=== PATIENT | female | born 1990 | race Caucasian/White ===

== ENCOUNTER 2023-04-22 10:17 | Emergency (ER) | payer MEDICAID, SELFPAY ==
[2023-04-22 10:26] VITALS: BP 158/87; PULSE 84; RESP 16; TEMP 36.6; O2SAT 100; BMI 20.3
--- NOTE | 2023-04-22 10:41 | CT_ITS ---
The [address] [address] Patient Name: JARRELL WHITING MRN: [id number] date: 1990 Sex: F Assigned Patient Location: ED.MAIN Current Patient Location: ED.MAIN Accession/Order Number: [id number] Exam Date: 04/22/2023 11:08 Report Date: 04/22/2023 11:52 At the request of: PB MAJANO Procedure: CT lumbar spine wo con EXAMINATION: CT lumbar spine wo con HISTORY: back injury , lumbar pain, bilateral lower extremity tingling after falling out of truck COMPARISON: No relevant comparison available. TECHNIQUE: Axial, Coronal, and Sagittal images were created without IV contrast. Dose reduction techniques were achieved by using automated exposure control and/or adjustment of mA and/or kV according to patient size and/or use of iterative reconstruction technique. 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 Normal height and alignment of vertebral bodies. FACET JOINTS: No disruption or abnormal widening. DISCS: L5-S1 mild diffuse disc bulging without disc height reduction resulting in mild/moderate foramen narrowing bilaterally. CENTRAL CANAL: No spinal stenosis or evidence of hemorrhage. PARASPINAL AREA: No visible mass. CT/CT lumbar spine wo con IMPRESSION: 1. No appreciable acute abnormality. 2. 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 3. Mild foramen narrowing L5-S1 secondary to mild disc bulging. Electronically authenticated by: ANITA JUÁREZ Date: 04/22/2023 11:52
--- NOTE | 2023-04-22 10:43 | ED.BACK1 ---
HPI - Back Pain/Injury General Chief Complaint: Back Pain/Injury Stated Complaint: BACK PAIN, TRAUMATIC Time Seen by Provider: 04/22/23 10:27 Source: patient Mode of arrival: walk-in Limitations: no limitations History of Present Illness HPI Narrative: Patient fell getting out of her truck yesterday and landed on an asphalt parking, striking her buttocks on the ground and using her left arm to break her fall. She immediately felt pain in the low back and now that pain is worse. She was previously diagnosed with degenerative disc disease and has chronic low back pain. No bowel or bladder dysfunction since the accident and she has no lower extremity weakness or paralysis. She said that she did not take anything for pain because I do not like swallowing pills . Related Data Home Medications Medication Instructions Recorded Confirmed albuterol sulfate 90 mcg/actuation 2 puff inhalation Q4H PRN 04/22/23 04/22/23 aerosol inhaler shortness of breath or wheezing budesonide-formoterol HFA 160 1 puff inhalation Q12H 04/22/23 04/22/23 mcg-4.5 mcg/actuation aerosol inhaler (Symbicort) Previous Rx's Medication Instructions Recorded methocarbamol 750 mg tablet 750 mg PO Q6H PRN back pain #20 04/22/23 tabs nabumetone 750 mg tablet 750 mg PO BID PRN back pain #20 04/22/23 tabs Allergies Allergy/AdvReac Type Severity Reaction Status Date / Time tomato Allergy Severe Rash Verified 04/22/23 10:37 acetaminophen [From Percocet] AdvReac Severe Nausea Verified 04/22/23 10:37 oxycodone [From Percocet] AdvReac Severe Nausea Verified 04/22/23 10:37 hydrocodone [From Vicodin] AdvReac Nausea Verified 04/22/23 10:37 PFSH PFSH Social History Smoking status: Heavy tobacco smoker Exam Narrative Exam Narrative: General: Alert, no acute distress, patient resting comfortably Skin: warm, intact, no pallor noted Head: Normocephalic, atraumatic Eye: Normal conjunctiva Respiratory: No acute distress Cardiac: Normal peripheral perfusion Back: inspection of the back shows no obvious deformity, no swelling, no ecchymosis, contusion, abrasion, swelling, erythema, fluctuance or induration. Tenderness noted throughout the low back including the midline lumbar spine. No coccyx or sacral tenderness. Straight leg raise on left is positive. Straight leg raise on right is negative. No CVA tenderness noted bilaterally. Musculoskeletal: No deformity noted to bilateral lower extremities. no cyanosis or mottling noted. normal pulses at DP and PT 2+ bilaterally and symmetrically. Normal 5/5 strength at ankles with dorsiflexion and plantar flexion. Patient is able to ambulate. Normal sensation noted to both lower extremities. Neurological: AAOx4, normal sensory and motor observed. L5-S1 reflexes intact symmetrically. DTR 2+ at patellar bilaterally. Psychiatric: Cooperative and interactive. Constitutional Vital Signs, click to edit/add: Last Vital Signs Temp 97.8 F 04/22/23 10:26 Pulse 84 04/22/23 10:26 Resp 16 04/22/23 10:26 BP 158/87 H 04/22/23 10:26 Pulse Ox 100 04/22/23 10:26 O2 Del Method Room Air 04/22/23 10:26 Course Vital Signs Vital signs: Vital Signs Temperature 97.8 F 04/22/23 10:26 Pulse Rate 84 04/22/23 10:26 Respiratory Rate 16 04/22/23 10:26 Blood Pressure 158/87 H 04/22/23 10:26 Pulse Oximetry 100 04/22/23 10:26 Oxygen Delivery Method Room Air 04/22/23 10:26 Temperature 97.8 F 04/22/23 10:26 Pulse Rate 84 04/22/23 10:26 Respiratory Rate 16 04/22/23 10:26 Blood Pressure 158/87 H 04/22/23 10:26 Pulse Oximetry 100 04/22/23 10:26 Oxygen Delivery Method Room Air 04/22/23 10:26 MDM - Back Pain/Injury MDM Narrative Medical decision making narrative: Patient agreed to receive IM Toradol and was sent for CT lumbar spine without contrast. Result/findings from radiologist are detailed below. Patient given a copy of her CT report and informed of findings, diagnosis discussed and patient discharged home with prescriptions for relafen and robaxin. She can see her PCP for follow up. Imaging Data ct lumbar spine: Radiologist's impression: Patient Name: JARRELL WHITING MRN: [facility]:[id number] date: 1990 Sex: F Assigned Patient Location: ED.MAIN Current Patient Location: ED.MAIN Accession/Order Number: [id number] Exam Date: 04/22/2023 11:08 Report Date: 04/22/2023 11:52 At the request of: PB MAJANO Procedure: CT lumbar spine wo con EXAMINATION: CT lumbar spine wo con HISTORY: back injury , lumbar pain, bilateral lower extremity tingling after falling out of truck COMPARISON: No relevant comparison available. TECHNIQUE: Axial, Coronal, and Sagittal images were created without IV contrast. Dose reduction techniques were achieved by using automated exposure control and/or adjustment of mA and/or kV according to patient size and/or use of iterative reconstruction technique. 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 Normal height and alignment of vertebral bodies. FACET JOINTS: No disruption or abnormal widening. DISCS: L5-S1 mild diffuse disc bulging without disc height reduction resulting in mild/moderate foramen narrowing bilaterally. CENTRAL CANAL: No spinal stenosis or evidence of hemorrhage. PARASPINAL AREA: No visible mass. IMPRESSION: 1. No appreciable acute abnormality. 2. 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 3. Mild foramen narrowing L5-S1 secondary to mild disc bulging. Electronically authenticated by: ANITA JUÁREZ Date: 04/22/2023 11:52 Discharge Plan Discharge Chief Complaint: Back Pain/Injury Clinical Impression: Low back pain Patient Disposition: Home, Self-Care Time of Disposition Decision: 12:06 Prescriptions / Home Meds: New nabumetone 750 mg tablet 750 mg PO BID PRN (Reason: back pain) Qty: 20 0RF methocarbamol 750 mg tablet 750 mg PO Q6H PRN (Reason: back pain) Qty: 20 0RF No Action albuterol sulfate 90 mcg/actuation HFA aerosol inhaler 2 puff INHALATION Q4H PRN (Reason: shortness of breath or wheezing) budesonide-formoterol [Symbicort] 160-4.5 mcg/actuation HFA aerosol inhaler 1 puff INHALATION Q12H Instructions: Acute Low Back Pain (ED) Stand Alone Forms: Portal Instructions Referrals: Stiven Greenberg MD [Primary Care Provider] - 1 week
[2023-04-22] MEDS: KETOROLAC TROMETHAMINE 60 MG/2 ML VIAL IM (10:49)
[2023-04-22 12:33] VITALS: BP 114/68; PULSE 64; RESP 18; O2SAT 98
== END 2023-04-22 12:36 | disposition home or self-care (01) ==
PROVIDERS: Emergency Provider Emergency Medicine; PCP Family Medicine
DX: M54.50 Low back pain, unspecified (principal); Z79.899 Other long term (current) drug therapy; F17.210 Nicotine dependence, cigarettes, uncomplicated
CPT/HCPCS: 72131; 96372; 99284

== ENCOUNTER 2023-07-06 16:26 | Emergency (ER) | payer MEDICAID, SELFPAY ==
[2023-07-06 16:32] VITALS: BP 142/97; PULSE 76; RESP 20; TEMP 36.8; O2SAT 98; BMI 21.1
--- OUTSIDE RECORDS SUMMARY | 2023-07-06 16:34 | XMS_ITS | CCD ---
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 Name Role Phone DILANY ., DR TONEY Attending Unavailable HOY ., DR TONEY Admitting Unavailable HOY ., DR TONEY Primary Care Unavailable HOY ., DR TONEY Consulting Unavailable HOY ., DR TONEY Admitting Unavailable HOY ., DR TONEY Primary Care Unavailable HOY ., DR TONEY Consulting Unavailable HOY ., DR TONEY Attending Unavailable Allergies Allergy Classification Reported Allergen(s) Allergy Type Date of Onset Reaction(s) Facility (1 source) Acetaminophen / HYDROcodone Drug Allergy 11-28-2014 [facility] Repository Problems Active Problems Problem Classification Problem Date Documented Da te Episodic/Chronic Unclassified (1 source) ESOPHAGITIS UNSPEC WITHOUT BLEEDING; Translations: [ESOPHAGITIS UNSPEC WITHOUT BLEEDING] Onset: 09-12-2021 Past or Other Problems Problem Classification Problem Date Documented Da te Episodic/Chronic Gastritis and duodenitis (4 sources) Gastritis, unspecified, without bleeding; Translations: [GASTRITIS UNS WITHOUT BLEEDING] Onset: 09-11-2021 Episodic Results Test Name Value Interpretation Reference Range Facility H PYLORI ANTIBODY IGGon 06-30 H. PYLORI IGG ABS 0.46 Index Value Normal 0.00-0.79 [facility] Comment on above: Result Comment: Nega tive <0.80 Equivocal 0.80 - 0.89 Positive >0.89 Performed By: #### H PYLLC #### [facility] [address] [place], [place] [address] Dr. Donna Cornejo AMYLASEon 07-21-2022 Amylase [Catalytic activity/Vol] 83 U/L Normal 25-115 [facility] Comment on above: Performed By: #### A MY, CMP, LIPA, LIPID, T7, TSH #### [facility] [address] [place] [address] [address] Donna Cornejo CBC AUTO DIFFon 07-21-2022 BASO # 0.0 103/ul Normal 0.0-0.1 [facility] Comment on above: Performed By: #### C BC #### [facility] [address] [place] [address] Dr. Donna Cornejo Basophils/100 WBC (Bld) 0.5 % Normal 0.2-2.0 [facility] Comment on above: Performed By: #### C BC #### [facility] [address] [place] [address] Dr. Donna Cornejo EO # 0.1 103/ul Normal 0.0-0.7 [facility] Comment on above: Performed By: #### C BC #### [facility] [address] [place] [address] Dr. Donna Cornejo Eosinophils/100 WBC (Bld) 1.7 % Normal 0.9-7.0 [facility] Comment on above: Performed By: #### C BC #### [facility] [address] [place] [address] Dr. Donna Cornejo Erythrocyte distribution width (RBC) [Ratio] 13.4 % Normal 11.0-15.0 [facility] Comment on above: Performed By: #### C BC #### [facility] [address] [place] [address] Dr. Donna Cornejo Hematocrit (Bld) [Volume fraction] 37.4 % Normal 36.0-48.0 [facility] Comment on above: Performed By: #### C BC #### [facility] [address] [place] [address] Dr. Donna Cornejo Hemoglobin (Bld) [Mass/Vol] 13.1 g/dL Normal 12.0-16.0 [facility] Comment on above: Performed By: #### C BC #### [facility] [address] [place] [address] Dr. Donna Cornejo IG # 0.01 10e3/ul Normal 0.00-0.03 [facility] Comment on above: Performed By: #### C BC #### [facility] [address] [place] [address] Dr. Donna Cornejo IG % 0.2 % Normal 0.0-0.5 [facility] Comment on above: Performed By: #### C BC #### [facility] [address] [place] [address] Dr. Donna Cornejo LYMPH # 2.5 103/ul Normal 1.2-3.8 [facility] Comment on above: Performed By: #### C BC #### [facility] [address] [place] [address] Dr. Donna Cornejo Lymphocytes/100 WBC (Bld) 41.8 % Normal 20.5-60.0 [facility] Comment on above: Performed By: #### C BC #### [facility] [address] [place] [address] Dr. Donna Cornejo MANUAL DIFF REQ NO Normal [facility] Comment on above: Performed By: #### C BC #### [facility] [address] [place] [address] Dr. Donna Cornejo MCH (RBC) [Entitic mass] 28.0 pg Normal 26.7-34.0 [facility] Comment on above: Performed By: #### C BC #### [facility] [address] [place] [address] Dr. Donna Cornejo MCHC (RBC) [Mass/Vol] 35.0 g/dL Normal 29.9-35.2 [facility] Comment on above: Performed By: #### C BC #### [facility] [address] [place] [address] Dr. Donna Cornejo MCV (RBC) [Entitic vol] 79.9 fL Critically low 81.0-99.0 [facility] Comment on above: Performed By: #### C BC #### [facility] [address] [place] [address] Dr. Donna Cornejo MONO # 0.5 103/ul Normal 0.3-0.8 [facility] Comment on above: Performed By: #### C BC #### [facility] [address] [place] [address] Dr. Donna Cornejo Monocytes/100 WBC (Bld) 8.5 % Normal 1.7-12.0 [facility] Comment on above: Performed By: #### C BC #### [facility] [address] [place] [address] Dr. Donna Cornejo NEUT # 2.8 103/ul Normal 1.4-6.5 [facility] Comment on above: Performed By: #### C BC #### [facility] [address] [place] [address] Dr. Donna Cornejo Neutrophils/100 WBC (Bld) 47.3 % Normal 43.0-75.0 [facility] Comment on above: Performed By: #### C BC #### [facility] [address] [place] [address] Dr. Donna Cornejo Platelet mean volume (Bld) [Entitic vol] 11.1 fL Normal 9.5-13.5 [facility] Comment on above: Performed By: #### C BC #### [facility] [address] [place] [address] Dr. Donna Cornejo PLT 187 103/ul Normal 150-450 [facility] Comment on above: Performed By: #### C BC #### [facility] [address] [place] [address] Dr. Donna Cornejo RBC 4.68 106/ul Normal 4.20-5.40 [facility] Comment on above: Performed By: #### C BC #### [facility] [address] [place] [address] Dr. Donna Cornejo WBC 6.0 103/ul Normal 4.0-11.0 [facility] Comment on above: Performed By: #### C BC #### [facility] [address] [place] [address] Dr. Donna Cornejo FREE THYROXINE INDEX T7on FTI 3.17 Normal 1.30-4.50 [facility] Comment on above: Performed By: #### A MY, CMP, LIPA, LIPID, T7, TSH #### [facility] [address] [place] [address] Dr. Donna Cornejo T3U 36.0 % Normal 30.0-39.0 [facility] Comment on above: Performed By: #### A MY, CMP, LIPA, LIPID, T7, TSH #### [facility] [address] [place] [address] Dr. Donna Cornejo T4 [Mass/Vol] 8.80 ug/dL Normal 4.80-13.90 [facility] Comment on above: Performed By: #### A MY, CMP, LIPA, LIPID, T7, TSH #### [facility] [address] [place] [address] Dr. Donna Cornejo GLYCOHEMOGLOBIN A1Con 2022 ADA RECOMMENDATION SEE BELOW Normal [facility] Comment on above: Result Comment: ADA RECOMMENDED LIMIT 4.0 - 6.0 ADA THERAPEUTIC TARGET < 7.0 ACTION SUGGESTED > 7.0 Performed By: #### A 1C #### [facility] [address] [place] [address] Dr. Donna Cornejo Glucose [Mass/Vol] 114 mg/dL Normal [facility] Comment on above: Performed By: #### A 1C #### [facility] [address] [place] [address] Dr. Donna Cornejo HbA1c (Bld) [Mass fraction] 5.6 % Normal 4.5-6.2 [facility] Comment on above: Performed By: #### A 1C #### [facility] [address] [place] [address] Dr. Donna Cornejo IRONon 07-21-2022 Iron [Mass/Vol] 55.0 ug/dL Normal 50.0-170.0 [facility] Comment on above: Performed By: #### I JENNA #### [facility] [address] [place] [address] Dr. Donna Cornejo LIPASEon 07-21-2022 Lipase [Catalytic activity/Vol] 181.0 U/L Normal 73.0-393.0 [facility] Comment on above: Performed By: #### A MY, CMP, LIPA, LIPID, T7, TSH #### [facility] [address] [address] [address] Donna Cornejo LIPID PROFILEon 07-21-2022 CHOL-HDL RATIO NORM SEE BELOW Normal [facility] Comment on above: Result Comment: 3.3 - 4.4 LOW RISK 4.4 - 7.1 AVERAGE RISK 7.1 - 11.0 MODERATE RISK >11.0 HIGH RISK Performed By: #### A MY, CMP, LIPA, LIPID, T7, TSH #### [facility] [address] [place] [address] [address] Donna Cornejo Cholesterol [Mass/Vol] 138 mg/dL Normal <=200 [facility] Comment on above: Performed By: #### A MY, CMP, LIPA, LIPID, T7, TSH #### [facility] [address] [place] [address] [address] Donna Cornejo Cholesterol in HDL [Mass/Vol] 53 mg/dL Normal 40-60 [facility] Comment on above: Performed By: #### A MY, CMP, LIPA, LIPID, T7, TSH #### [facility] [address] [place] [address] [address] Donna Cornejo Cholesterol in LDL [Mass/Vol] 73.0 mg/dL Normal [facility] Comment on above: Performed By: #### A MY, CMP, LIPA, LIPID, T7, TSH #### [facility] [address] [address] [address] Donna Cornejo Cholesterol.total/ Cholesterol in HDL [Mass ratio] 2.6 {ratio} Normal [facility] Comment on above: Performed By: #### A MY, CMP, LIPA, LIPID, T7, TSH #### [facility] [address] [address] [address] Donna Cornejo HDL NORMAL > or = 60 mg/dl - LO W CARDIOVASCULAR RISK <40 mg/dl - HIGH CARDIOVASCULAR RISK Normal [facility] Comment on above: Performed By: #### A MY, CMP, LIPA, LIPID, T7, TSH #### [facility] [address] [address] [address] Donna Cornejo LDL CALC NORMAL SEE BELOW Normal [facility] Comment on above: Result Comment: <100 mg/dl OPTIMAL 100 - 129 mg/dl NEAR OR ABOVE OPTIMAL 130 - 159 mg/dl BORDERLINE HIGH 160 - 189 mg/dl HIGH >190 mg/dl VERY HIGH Performed By: #### A MY, CMP, LIPA, LIPID, T7, TSH #### [facility] [address] [address] [address] Donna Cornejo Triglyceride [Mass/Vol] 60 mg/dL Normal <=150 [facility] Comment on above: Performed By: #### A MY, CMP, LIPA, LIPID, T7, TSH #### [facility] [address] [address] [address] Donna Cornejo VLDL CALC 12.0 mg/dL Normal [facility] Comment on above: Performed By: #### A MY, CMP, LIPA, LIPID, T7, TSH #### [facility] [address] [place] [address] Dr. Donna Cornejo PROF 14(COMP METB)on 023 Albumin [Mass/Vol] 4.2 g/dL Normal 3.4-5.0 [facility] Comment on above: Performed By: #### A MY, CMP, LIPA, LIPID, T7, TSH #### [facility] [address] [place] [address] Dr. Donna Cornejo Albumin/Globulin [Mass ratio] 1.4 {ratio} Normal [facility] Comment on above: Performed By: #### A MY, CMP, LIPA, LIPID, T7, TSH #### [facility] [address] [place] [address] Dr. Donna Cornejo ALP [Catalytic activity/Vol] 57 U/L Normal 46-116 [facility] Comment on above: Performed By: #### A MY, CMP, LIPA, LIPID, T7, TSH #### [facility] [address] [place] [address] Dr. Donna Cornejo ALT [Catalytic activity/Vol] 16 U/L Normal 14-59 [facility] Comment on above: Performed By: #### A MY, CMP, LIPA, LIPID, T7, TSH #### [facility] [address] [place] [address] Dr. Donna Cornejo Anion gap [Moles/Vol] 15.5 mmol/L Normal [facility] Comment on above: Performed By: #### A MY, CMP, LIPA, LIPID, T7, TSH #### [facility] [address] [place] [address] Dr. Donna Cornejo AST [Catalytic activity/Vol] 17 U/L Normal 15-37 [facility] Comment on above: Performed By: #### A MY, CMP, LIPA, LIPID, T7, TSH #### [facility] [address] [place] [address] Dr. Donna Cornejo Bilirubin [Mass/Vol] 0.3 mg/dL Normal 0.2-1.0 [facility] Comment on above: Performed By: #### A MY, CMP, LIPA, LIPID, T7, TSH #### [facility] [address] [place] [address] Dr. Donna Cornejo Calcium [Mass/Vol] 9.5 mg/dL Normal 8.5-10.1 [facility] Comment on above: Performed By: #### A MY, CMP, LIPA, LIPID, T7, TSH #### [facility] [address] [place] [address] Dr. Donna Cornejo Chloride [Moles/Vol] 102 mmol/L Normal 98-107 [facility] Comment on above: Performed By: #### A MY, CMP, LIPA, LIPID, T7, TSH #### [facility] [address] [place] [address] Dr. Donna Cornejo CO2 [Moles/Vol] 24.7 mmol/L Normal 21.0-32.0 [facility] Comment on above: Performed By: #### A MY, CMP, LIPA, LIPID, T7, TSH #### [facility] [address] [place] [address] Dr. Donna Cornejo Creatinine [Mass/Vol] 0.76 mg/dL Normal 0.55-1.02 [facility] Comment on above: Performed By: #### A MY, CMP, LIPA, LIPID, T7, TSH #### [facility] [address] [place] [address] Dr. Donna Cornejo EGFR-AF URUGUAYAN >60 Normal >=60 [facility] Comment on above: Performed By: #### A MY, CMP, LIPA, LIPID, T7, TSH #### [facility] [address] [place] [address] Dr. Donna Cornejo EGFR-NON AF URUGUAYAN >60 Normal >=60 [facility] Comment on above: Performed By: #### A MY, CMP, LIPA, LIPID, T7, TSH #### [facility] [address] [place] [address] Dr. Donna Cornejo Globulin (S) [Mass/Vol] 3.0 g/dL Normal [facility] Comment on above: Performed By: #### A MY, CMP, LIPA, LIPID, T7, TSH #### [facility] [address] [place] [address] Dr. Donna Cornejo Glucose [Mass/Vol] 109 mg/dL Critically high 74-106 [facility] Comment on above: Performed By: #### A MY, CMP, LIPA, LIPID, T7, TSH #### [facility] [address] [place] [address] Dr. Donna Cornejo Potassium [Moles/Vol] 4.2 mmol/L Normal 3.5-5.1 [facility] Comment on above: Performed By: #### A MY, CMP, LIPA, LIPID, T7, TSH #### [facility] [address] [place] [address] Dr. Donna Cornejo Protein [Mass/Vol] 7.2 g/dL Normal 6.4-8.2 [facility] Comment on above: Performed By: #### A MY, CMP, LIPA, LIPID, T7, TSH #### [facility] [address] [place] [address] Dr. Donna Cornejo Sodium [Moles/Vol] 138 mmol/L Normal 136-145 [facility] Comment on above: Performed By: #### A MY, CMP, LIPA, LIPID, T7, TSH #### [facility] [address] [place] [address] Dr. Donna Cornejo Urea nitrogen [Mass/Vol] 11.0 mg/dL Normal 7.0-18.0 [facility] Comment on above: Performed By: #### A MY, CMP, LIPA, LIPID, T7, TSH #### [facility] [address] [address] [address] Donna Cornejo Urea nitrogen/Creatinin e [Mass ratio] 14.5 mg/mg Normal [facility] Comment on above: Performed By: #### A MY, CMP, LIPA, LIPID, T7, TSH #### [facility] [address] [address] [address] Donna Cornejo TSHon 07-21-2022 TSH 1.608 uIU/mL Normal 0.358-3.740 [facility] Comment on above: Performed By: #### A MY, CMP, LIPA, LIPID, T7, TSH #### [facility] [address] [address] [address] Donna Cornejo General Surgery Office/Clini c Noteon 08-29-2021 General Surgery Office/Clinic Note Chief Complaint post operative follow up HPI Staff 7 day post operative follow up post EGD with antral biopsy. Symptoms are unchanged. History of Present Illness 1 week s/p EGD with antral bx due to epigastric pain, postprandial bloating, nausea, food intolerances; by with inactive gastritis, no H pylori; minimal improvement with Protonix; better with avoiding certain foods. Review of Systems ROS - Provider Constitutional: no fever, no sweats, no weight loss. Eyes: no glasses, no blurred vision, no visual loss. ENMT: no dentures, no hoarseness, no swallowing difficulties, no hearing loss, no ear infection(s), no nose bleeds. Cardiovascular: normal blood pressure, no chest pain, regular heartbeat, no heart murmur. Respiratory: no shortness of breath, no cough, no asthma, no wheezing. Gastrointestinal: no nausea, no vomiting, no diarrhea, no constipation, no blood in stool, no change in bowel habits, no abdominal pain, no hepatitis. Genitourinary: no kidney stones, no urine infection, no dysuria. Musculoskeletal: no pain, no weakness. Skin: no changing moles, no rash, no skin lumps. Neurologic: no seizures, no epilepsy, no headache. Psychiatric: no emotional or psychiatric problem. Heme/Lymph: no bleeding problems, no anemia, no blood clots, no transfusions. Allergy/Immunologic: no swollen lymph nodes/glands, no IV drug abuse. Other: Additional ROS info: Except as noted in the above Review of Systems and in the History of Present Illness, all other systems have been reviewed and are negative or noncontributory. Physical Exam Vitals & Measurements T: 36.2 ?C(Temporal Artery) Assessment/Plan 1. Epigastric pain (R10.13: Epigastric pain) may be food intolerances/allergies; recommend trial of low FODMAP diet; may need to see canvas shop laborer about possible food allergies; call with problems/questions. 2. Postprandial abdominal bloating (R14.0: Abdominal distension (gaseous)) see # 1 Follow-up No qualifying data available Problem List/Past Medical History Ongoing Abdominal pain, RUQ ADHD Anxiety Asthma BMI 22.0-22.9, adult Early satiety Eczema Epigastric pain GERD (gastroesophageal reflux disease) HTN (hypertension) Insomnia Low serum iron Lumbar degenerative disc disease Migraine Postprandial abdominal bloating Seasonal allergic rhinitis Historical No qualifying data Procedure/Surgical History EGD - Esophagogastroduodenoscopy (08/21/2021), section (01/18/2014), section (10/17/2012), Tonsillectomy and adenoidectomy. Medications albuterol HFA 90 mcg/inh MDI, 2 puff(s), Inhalation, q4hr, PRN ferrous sulfate 325 mg Tab, 325 mg= 1 tab(s), Oral, BID Protonix 40 mg Tab-DR, 40 mg= 1 tab(s), Oral, Daily Symbicort 160/4.5 inhalation aerosol with adapter, 2 puff(s), Inhalation, BID triamcinolone Top 0.1% Crm, 1 paulo, Topical, BID Allergies acetaminophen-hydrocodone (Nausea and vomiting) Social History Alcohol - Denies Alcohol Use, 08/06/2021 Substance Abuse Current, Marijuana, Daily, Started age 30 Years., 08/06/2021 Tobacco 5-9 cigarettes (between 1/4 to 1/2 pack)/day in last 30 days Tobacco Use:. Former smokeless tobacco user, quit more than 30 days ago Smokeless Tobacco Use:. Cigarettes, Vaping, Started age 15.0 Years. Yes, 08/06/2021 Family History Brain tumor: Sister. Hypertension: Father. Immunizations Vaccine Date Status Comments influenza virus vaccine, inactivated - Not Given Patient Refuses Normal [facility] Comment on above: Result Comment: Elec tronically Signed By: POPPY VALDEZ, Fred Liriano\.br\Date and Time Signed: 08/29/21 16:16 EST Ambulatory Visit Summaryon 0 08-28-2021 Ambulatory Visit Summary JARRELL WHITING :1990 Visit Date:08/28/2021 Ambulatory Visit Instructions Your Care Team Attending Physician - POPPY VALDEZ, Fred Liriano Primary Care Physician - Feng Duran MD This Is Your Medications List albuterol (albuterol HFA 90 mcg/inh MDI) budesonide-formoterol (Symbicort 160/4.5 inhalation aerosol with adapter) ferrous sulfate (ferrous sulfate 325 mg Tab) pantoprazole (Protonix 40 mg Tab-DR) triamcinolone topical (triamcinolone Top 0.1% Crm) Procedures Performed EGD - Esophagogastroduodenoscopy (08/21/2021), section (01/18/2014), section (10/17/2012), Tonsillectomy and adenoidectomy. Discharge Vitals Temperature (Temporal Artery) 36.2 ?C Medications What How Much When Instructions Unchanged albuterol (albuterol HFA 90 mcg/ inh MDI) 2 Puffs Inhalation Every 4 hours as needed for as needed for wheezing Unchanged budesonide-formoterol (Symbicort 160/ 4.5 inhalation aerosol with adapter) 2 Puffs Inhalation 2 times a day Unchanged ferrous sulfate (ferrous sulfate 325 mg Tab) 1 Tablets By Mouth 2 times a day Unchanged pantoprazole (Protonix 40 mg Tab-DR) 1 Tablets By Mouth Every day Unchanged triamcinolone topical (triamcinolone Top 0.1% Crm) 1 Application Topical 2 times a day Allergies acetaminophen-hydrocodone (Nausea and vomiting) Problems Ongoing - Any problem that you are currently receiving treatment for. Abdominal pain, RUQ ADHD Anxiety Asthma BMI 22.0-22.9, adult Early satiety Eczema Epigastric pain GERD (gastroesophageal reflux disease) HTN (hypertension) Insomnia Low serum iron Lumbar degenerative disc disease Migraine Postprandial abdominal bloating Seasonal allergic rhinitis Normal [facility] Pathology Noteon 08-25-2021 Pathology Note [id number]:127 [facility] Operative Reporton Operative Report [id number]:127 Normal [facility] Consent for Procedure/Surger yon 08-07-2021 Consent for Procedure/Surgery [id number]:127 [facility] Ambulatory Visit Summaryon 0 08-06-2021 Ambulatory Visit Summary JARRELL WHITING :1990 Visit Date:08/06/2021 Ambulatory Visit Instructions Your Care Team Attending Physician - POPPY VALDEZ, Fred Liriano Primary Care Physician - Feng Duran MD Referring Physician - Feng Duran MD This Is Your Medications List Contact prescribing physician if questions or concerns albuterol (albuterol HFA 90 mcg/inh MDI) budesonide-formoterol (Symbicort 160/4.5 inhalation aerosol with adapter) ferrous sulfate (ferrous sulfate 325 mg Tab) pantoprazole (Protonix 40 mg Tab-DR) triamcinolone topical (triamcinolone Top 0.1% Crm) Procedures Performed section (01/18/2014), section (10/17/2012), Tonsillectomy and adenoidectomy. Discharge Vitals Temperature (Temporal Artery) 36.2 ?C Heart Rate (Peripheral) 84 Respiratory Rate 16 Blood Pressure 126/86 Height 152.4 cm Height 152.4 cm Weight 53.4 kg Weight 53.4 kg BMI 22.99 Medications What How Much When Instructions Unchanged albuterol (albuterol HFA 90 mcg/ inh MDI) 2 Puffs Inhalation Every 4 hours as needed for as needed for wheezing Contact prescribing physician if questions or concerns Unchanged budesonide-formoterol (Symbicort 160/ 4.5 inhalation aerosol with adapter) 2 Puffs Inhalation 2 times a day Contact prescribing physician if questions or concerns Unchanged ferrous sulfate (ferrous sulfate 325 mg Tab) 1 Tablets By Mouth 2 times a day Contact prescribing physician if questions or concerns Unchanged pantoprazole (Protonix 40 mg Tab-DR) 1 Tablets By Mouth Every day Contact prescribing physician if questions or concerns Unchanged triamcinolone topical (triamcinolone Top 0.1% Crm) 1 Application Topical 2 times a day Contact prescribing physician if questions or concerns Medications and Immunizations Administered Not Given influenza virus vaccine, inactivated, Patient Refuses Allergies acetaminophen-hydrocodone (Nausea and vomiting) Problems Ongoing - Any problem that you are currently receiving treatment for. ADHD Anxiety Asthma BMI 22.0-22.9, adult Eczema HTN (hypertension) Insomnia Low serum iron Lumbar degenerative disc disease Migraine Seasonal allergic rhinitis Normal [facility] Physician Referralon 022 Physician Referral [phone] [id number] Normal [facility] Encounters Encounter Date Encounter Type Care Provider Facility Start: 07-23-2022 Encounter for genera l adult medical examination without abnormal findings DR FENG DURAN . [facility] Start: 07-21-2022 End: 07-22-[address] FENG DURAN . Facility: Start: 07-21-2022 End: 07-22-2022 Encounter for general adult medical examination without abnormal findings DR FENG DURAN . Facility: Start: 09-11-2021 End: 09-12-[address] FENG DURAN . Facility: Payers Date Payer Category Payer Unknown [id number] 1990 Unknown [id number] 1958 Medicaid [id number] 1958 Unknown [id number] Clinical Note 08-06-2021 Note Date & Type Note Facility 08-06-2021 Note Chief Complaint consultation for RUQ pain HPI Staff 31 year old female presents on consultation from Dr. Duran for RUQ/epigastric pain with heaviness feeling in RUQ. Reports pain since March. Intermittent nausea and vomiting. Food triggers include ground beef, broccoli, spicy foods and alcohol. RUQ US completed 05/01/21-unremarkable. CT ABD completed 06/06/21-unremarkable. Levsin QID, not helpful. Taking Pantoprazole 40mg daily with minimal improvement in symptoms. History of Present Illness 31 yo female no with h/o htn, asthma, anxiety, ADHD, migraine headaches; referred for upper abdominal pain; patient reports long h/o stomach problems, GERD symptoms, began worsening 4 months ago, worse with spicy or acidic foods; increased postprandial bloating, early satiety; regurgitation of acid, no dysphagia, occasional nausea, no emesis; placed on Protonix daily with mild improvement; no relief with Levsin; still can't eat red meat, spicy or acidic foods; no wt loss; no recent NSAID or asa use; no medication changes; has had chronic intermittent anemia for which she takes iron supplementation; abdominal operations significant for x 2. no fmhx of GI malignancy or IBD. recent normal GB US and abdominal/pelvic ct scan. Review of Systems PHQ Score Initial Depression Screen Score: 0 ROS - Provider Constitutional: no fever, no sweats, no weight loss. Eyes: no glasses, no blurred vision, no visual loss. ENMT: no dentures, no hoarseness, no swallowing difficulties, no hearing loss, no ear infection(s), no nose bleeds. Cardiovascular: normal blood pressure, no chest pain, regular heartbeat, no heart murmur. Respiratory: no shortness of breath, no cough, no asthma, no wheezing. Gastrointestinal: mild nausea, no vomiting, no diarrhea, no constipation, no blood in stool, no change in bowel habits, yes abdominal pain, no hepatitis. Genitourinary: no kidney stones, no urine infection, no dysuria. Musculoskeletal: yes pain, no weakness. Skin: no changing moles, no rash, no skin lumps. Neurologic: no seizures, no epilepsy, yes headache. Psychiatric: no emotional or psychiatric problem. Heme/Lymph: no bleeding problems, no anemia, no blood clots, no transfusions. Allergy/Immunologic: no swollen lymph nodes/glands, no IV drug abuse. Other: Additional ROS info: Except as noted in the above Review of Systems and in the History of Present Illness, all other systems have been reviewed and are negative or noncontributory. Physical Exam Vitals & Measurements T: 36.2 ?C(Temporal Artery) HR: 84(Peripheral) RR: 16 BP: 126/86 HT: 152.4 cm HT: 152.4 cm WT: 53.4 kg WT: 53.4 kg BMI: 22.99 HEENT: normal conjunctiva, sclera clear, no scleral icterus, EOM intact, PERRLA, oral mucosa moist without lesions. Neck: trachea midline, no mass, symmetric, no thyromegaly or nodules, no adenopathy Respiratory: lungs CTA, respirations non labored. Cardiovascular: regular rate and rhythm, no murmur, no pedal edema or varicosities. Gastrointestinal: soft, non distended, mild tenderness, epigastrium and RUQ, no peritoneal signs; no masses, no palpable hernias, diastasis recti no, no hepatosplenomegaly; normal bs Lymphatic: no cervical adenopathy, no axillary adenopathy, no inguinal adenopathy. Musculoskeletal: normal gait, digits and nails without infection, nodes, cyanosis, clubbing. Skin: no rashes, no lesions, no ulcers, no subcutaneous nodules, induration. Psychiatric/Neuro: oriented to time, place, person, judgement normal, affect appropriate for age, insight intact, no focal deficits. Tests: review of old records completed, Discussed surgical options, risks, and possible complications with patient. Assessment/Plan 1. Epigastric pain (R10.13: Epigastric pain) plan EGD under anesthesia for further evaluation, informed consent obtained. 2. Abdominal pain, RUQ (R10.11: Right upper quadrant pain) see # 1 3. Early satiety (R68.81: Early satiety) see # 1 4. GERD (gastroesophageal reflux disease) (K21.9: Gastro-esophageal reflux disease without esophagitis) see # 1, continue PPI 5. Postprandial abdominal bloating (R14.0: Abdominal distension (gaseous)) see # 1 Follow-up No qualifying data available Problem List/Past Medical History Ongoing Abdominal pain, RUQ ADHD Anxiety Asthma BMI 22.0-22.9, adult Early satiety Eczema Epigastric pain GERD (gastroesophageal reflux disease) HTN (hypertension) Insomnia Low serum iron Lumbar degenerative disc disease Migraine Postprandial abdominal bloating Seasonal allergic rhinitis Historical No qualifying data Procedure/Surgical History section (01/18/2014), section (10/17/2012), Tonsillectomy and adenoidectomy. Medications albuterol HFA 90 mcg/inh MDI, 2 puff(s), Inhalation, q4hr, PRN ferrous sulfate 325 mg Tab, 325 mg= 1 tab(s), Oral, BID Protonix 40 mg Tab-DR, 40 mg= 1 tab(s), Oral, Daily Symbicort 160/4.5 inhalation aerosol with adapter, 2 puf (more content not included)... [facility] Comment on above: Result Comment: Elec tronically Signed By: POPPY VALDEZ, Fred Jain\Date and Time Signed: 08/06/21 15:12 EST Summary Purpose Family History No Family History Records FoundNo Family History Records Found Advance Directives No Advanced Directives Records FoundNo Advanced Directives Records Found Additional Source Comments INFORMATION SOURCE (unrecogn ized section and content) DATE CREATED AUTHOR 09/15/2021 [facility] DATE CREATED AUTHOR AUTHOR'S ORGANIZ ATION 08/26/2022 [facility] FOR RECORDS PERTAINING TO PATIENTS WHO ARE OR HAVE BEEN ENROLLED IN A CHEMICAL DEPENDENCY/SUBSTANCEABUSE PROGRAM, SOME INFORMATION MAY BE OMITTED. This clinical summary was aggregated from multiple sources. Caution should be exercised in using it in the provision of clinical care. This summary normalizes information from multiple sources, and as a consequence, information in this document may materially change the coding, format and clinical context of patient data. In addition, data may be omitted in some cases. CLINICAL DECISIONS SHOULD BE BASED ON THE PRIMARY CLINICAL RECORDS. [facility]. provides no warranty or guarantee of the accuracy or completeness of information in this document.
--- NOTE | 2023-07-06 17:00 | ED.ABDPAIN1 ---
HPI - Abdominal Pain General Chief Complaint: Abdominal Pain Stated Complaint: Abdominal Pain Time Seen by Provider: 07/06/23 16:45 Source: patient Mode of arrival: walk-in Limitations: no limitations History of Present Illness HPI narrative: Patient is a 33-year-old female who presents to the emergency department for 3 to 4-day history of pain in the epigastrium and right upper quadrant. She states 4 to 5 years ago she was diagnosed with a lesion on her liver which was biopsied at this facility and found to not be cancerous. She states she never followed up after that. She reports nausea and vomiting over the last several days. She is not concerned for . She has had no previous abdominal surgeries other than a tubal ligation. No urinary symptoms. No fevers, upper respiratory symptoms or diarrhea. Related Data Home Medications Medication Instructions Recorded Confirmed albuterol sulfate 90 mcg/actuation 2 puff inhalation Q4H PRN 04/22/23 04/22/23 aerosol inhaler shortness of breath or wheezing budesonide-formoterol HFA 160 1 puff inhalation Q12H 04/22/23 04/22/23 mcg-4.5 mcg/actuation aerosol inhaler (Symbicort) Previous Rx's Medication Instructions Recorded methocarbamol 750 mg tablet 750 mg PO Q6H PRN back pain #20 04/22/23 tabs nabumetone 750 mg tablet 750 mg PO BID PRN back pain #20 04/22/23 tabs ondansetron 4 mg disintegrating 4 mg PO Q6H PRN nausea and 07/06/23 tablet vomiting #12 tabs pantoprazole 40 mg tablet,delayed 40 mg PO DAILY #7 tabs 07/06/23 release (Protonix) sucralfate 1 gram tablet (Carafate) 1 g PO Q6H PRN abdominal pain #12 07/06/23 tabs Allergies Allergy/AdvReac Type Severity Reaction Status Date / Time tomato Allergy Severe Rash Verified 04/22/23 10:37 acetaminophen [From Percocet] AdvReac Severe Nausea Verified 04/22/23 10:37 oxycodone [From Percocet] AdvReac Severe Nausea Verified 04/22/23 10:37 hydrocodone [From Vicodin] AdvReac Nausea Verified 04/22/23 10:37 Review of Systems ROS Constitutional Denies: fever or chills Eyes Denies: change in vision Ears, nose, mouth, and throat Denies: throat pain or nasal congestion Cardiovascular Denies: chest pain Respiratory Denies: shortness of breath or cough Gastrointestinal Reports: abdominal pain, nausea and vomiting; Denies: diarrhea Genitourinary Denies: painful urination Musculoskeletal Denies: back pain Integumentary/Breast Denies: rash Neurological Denies: headache Endocrine Denies: excessive urination [facility] Social History Smoking status: Heavy tobacco smoker Exam Narrative Exam Narrative: Gen.: Awake, alert, in no distress Head: Normocephalic, atraumatic ENT: Moist mucous membranes Respiratory: No respiratory distress, lungs clear bilaterally Cardio: Regular rate and rhythm Gastrointestinal: Abdomen is soft, Tender in the epigastrium and right upper quadrant with voluntary guarding, no rebound Extremities: Moves extremities equally Psych: Normal mood and affect Neuro: No focal neuro deficit Skin: Warm, dry, intact Constitutional Vital Signs, click to edit/add: Last Vital Signs Temp 98.2 F 07/06/23 16:32 Pulse 76 07/06/23 16:32 Resp 20 07/06/23 16:32 BP 142/97 H 07/06/23 16:32 Pulse Ox 98 07/06/23 16:32 O2 Del Method Room Air 07/06/23 16:32 Course Vital Signs Vital signs: Vital Signs Temperature 98.2 F 07/06/23 16:32 Pulse Rate 76 07/06/23 16:32 Respiratory Rate 20 07/06/23 16:32 Blood Pressure 142/97 H 07/06/23 16:32 Pulse Oximetry 98 07/06/23 16:32 Oxygen Delivery Method Room Air 07/06/23 16:32 Temperature 98.2 F 07/06/23 16:32 Pulse Rate 76 07/06/23 16:32 Respiratory Rate 20 07/06/23 16:32 Blood Pressure 142/97 H 07/06/23 16:32 Pulse Oximetry 98 07/06/23 16:32 Oxygen Delivery Method Room Air 07/06/23 16:32 MDM - Abdominal Pain MDM Narrative Medical decision making narrative: Patient treated with IV fluids, nausea medication, And Protonix. She rested comfortably in the ER with stable vital signs. Lab studies were all within normal limits and ultrasound of the right upper quadrant with stable hemangioma from previous imaging and no evidence of acute process. Patient discharged home with Protonix, Zofran, Carafate. Follow-up with PCP and return to the ER if symptoms change or worsen. Medical Records Attestation: I reviewed the patient's medical records. Lab Data Attestation: I reviewed the patient's lab results. Labs: Lab Results 07/06/23 07/06/23 Range/Units 16:56 18:00 WBC 7.8 (4.0-11.0) 10^3/uL RBC 4.62 (4.20-5.40) 10^6/uL Hgb 12.3 (12.0-16.0) g/dL Hct 37.5 (36.0-48.0) % MCV 81.2 (81.0-99.0) fL MCH 26.6 L (26.7-34.0) pg MCHC 32.8 (29.9-35.2) g/dL RDW 14.1 (11.0-15.0) % Plt Count 203 (150-450) 10^3/uL MPV 11.7 (9.5-13.5) fL Neut % (Auto) 61.7 (43.0-75.0) % Lymph % (Auto) 28.6 (20.5-60.0) % [place] % (Auto) 8.6 (1.7-12.0) % Eos % (Auto) 0.5 L (0.9-7.0) % Baso % (Auto) 0.5 (0.2-2.0) % Neut # (Auto) 4.8 (1.4-6.5) 10^3/uL Lymph # (Auto) 2.2 (1.2-3.8) 10^3/uL [place] # (Auto) 0.7 (0.3-0.8) 10^3/uL Eos # (Auto) 0.0 (0.0-0.7) 10^3/uL Baso # (Auto) 0.0 (0.0-0.1) 10^3/uL Abs Immat Gran (auto) 0.01 (0.00-0.03) 10^3/uL Imm/Tot Granulo (auto) 0.1 (0.0-0.5) % Sodium 137 (136-145) mmol/L Potassium 3.8 (3.5-5.1) mmol/L Chloride 103 (98-107) mmol/L Carbon Dioxide 25.2 (21.0-32.0) mmol/L Anion Gap 12.6 BUN 11.0 (7.0-18.0) mg/dL Creatinine 0.87 (0.55-1.02) mg/dL Est GFR ( Amer) >60 (>=60) Est GFR (Non-Af Amer) >60 (>=60) BUN/Creatinine Ratio 12.6 Glucose 111 H (74-106) mg/dL Lactate 1.0 (0.4-2.0) mmol/L Calcium 9.1 (8.5-10.1) mg/dL Total Bilirubin 0.4 (0.2-1.0) mg/dL AST 15 (15-37) U/L ALT 19 (14-59) U/L Alkaline Phosphatase 53 (46-116) U/L Total Protein 8.0 (6.4-8.2) g/dL Albumin 4.4 (3.4-5.0) g/dL Globulin 3.6 g/dL Albumin/Globulin Ratio 1.2 Lipase 38.0 (16.0-77.0) U/L Serum HCG, Qual Negative (NEGATIVE) Urine Color Lt. yellow (YELLOW) Urine Clarity Clear (CLEAR) Urine pH 6.0 (5.0-9.0) Ur Specific [place] 1.010 (1.005-1.025) Urine Protein Negative (NEG/TRACE) mg/dL Urine Glucose (UA) Negative (NEGATIVE) mg/dL Urine Ketones Trace A (NEGATIVE) mg/dL Urine Occult Blood Negative (NEGATIVE) Urine Nitrite Negative (NEGATIVE) Urine Bilirubin Negative (NEGATIVE) Urine Urobilinogen 0.2 (0.2-1.0) EU/dL Ur Leukocyte Esterase Negative (NEGATIVE) Imaging Data US - abdomen: Attestation: I have reviewed the pertinent imaging results. Radiologist's impression: Procedure: US right upper quadrant EXAM: Abdominal ultrasound limited CLINICAL INDICATION: Abdominal pain. COMPARISON: CT scan dated 06/06/2021 TECHNIQUE: Grayscale and color Doppler imaging was performed of the right upper quadrant abdomen. FINDINGS: Liver: Normal hepatic echotexture. No hepatomegaly. Hyperechoic left hepatic lesion measuring up to 2.0 x 1.1 x 1.4 cm, this is not substantially changed compared to 05/01/2021. Portal and hepatic veins are grossly patent. Gallbladder: No cholelithiasis. No gallbladder wall thickening. No pericholecystic fluid. No evidence of sonographic Villa's sign noted by the foundry operator. Nondilated gallbladder. Biliary: No intrahepatic biliary ductal dilation. Common bile duct measures 6 mm. Kidneys: No right hydronephrosis. No sonographically evident right renal calculi. No right renal masses. Right kidney measures 11.6 cm length. Aorta/IVC: Patent and normal caliber where visualized. No ascites. IMPRESSION: 1. No acute sonographic abnormalities in the right upper quadrant. 2. Hyperechoic left hepatic masses chronic and likely represents a hemangioma. Electronically authenticated by: ANDREA MCDONALD Date: 07/06/2023 19:52 Discharge Plan Discharge Chief Complaint: Abdominal Pain Clinical Impression: Abdominal pain Patient Disposition: Home, Self-Care Time of Disposition Decision: 19:57 Condition: Good Prescriptions / Home Meds: New sucralfate [Carafate] 1 gram tablet 1 g PO Q6H PRN (Reason: abdominal pain) Qty: 12 0RF pantoprazole [Protonix] 40 mg tablet,delayed release (DR/EC) 40 mg PO DAILY Qty: 7 0RF ondansetron 4 mg tablet,disintegrating 4 mg PO Q6H PRN (Reason: nausea and vomiting) Qty: 12 0RF No Action albuterol sulfate 90 mcg/actuation HFA aerosol inhaler 2 puff INHALATION Q4H PRN (Reason: shortness of breath or wheezing) budesonide-formoterol [Symbicort] 160-4.5 mcg/actuation HFA aerosol inhaler 1 puff INHALATION Q12H nabumetone 750 mg tablet 750 mg PO BID PRN (Reason: back pain) Qty: 20 0RF methocarbamol 750 mg tablet 750 mg PO Q6H PRN (Reason: back pain) Qty: 20 0RF Instructions: Abdominal Pain (ED) Stand Alone Forms: Portal Instructions Referrals: Stiven Greenberg MD [Primary Care Provider] - 1 week
[2023-07-06 17:02] LABS: Basophils Percent Auto 0.5 % (0.2-2.0); Eosinophils Percent Auto 0.5 % (0.9-7.0); Hematocrit 37.5 % (36.0-48.0); Hemoglobin 12.3 g/dL (12.0-16.0); Immature Granulocytes Abs Auto 0.01 10^3/uL (0.00-0.03); Immature Granulocytes Pct Auto 0.1 % (0.0-0.5); Lymphocytes Absolute Auto 2.2 10^3/uL (1.2-3.8); Lymphocytes Percent Auto 28.6 % (20.5-60.0); Mean Corpuscular HGB Conc 32.8 g/dL (29.9-35.2); Mean Corpuscular Hemoglobin 26.6 pg (26.7-34.0); Mean Corpuscular Volume 81.2 fL (81.0-99.0); Mean Platelet Volume 11.7 fL (9.5-13.5); Monocytes Absolute Auto 0.7 10^3/uL (0.3-0.8); Monocytes Percent Auto 8.6 % (1.7-12.0); Neutrophils Absolute Auto 4.8 10^3/uL (1.4-6.5); Neutrophils Percent Auto 61.7 % (43.0-75.0); Platelet Count 203 10^3/uL (150-450); Red Blood Count 4.62 10^6/uL (4.20-5.40); Red Cell Distribution Width 14.1 % (11.0-15.0); White Blood Count 7.8 10^3/uL (4.0-11.0)
[2023-07-06] MEDS: 0.9 % SODIUM CHLORIDE 1,000 ML 999 ML IV (17:10)
[2023-07-06] MEDS: HYOSCYAMINE SULFATE 0.125 MG TAB.SUBL SL (17:12)
[2023-07-06] MEDS: ONDANSETRON PF 4 MG/2 ML VIAL IV (17:12)
[2023-07-06] MEDS: PANTOPRAZOLE SODIUM 40 MG VIAL IV (17:12)
[2023-07-06 17:20] LABS: HCG Qualitative NEGATIVE (NEGATIVE)
[2023-07-06 17:29] LABS: Alanine Aminotransferase 19 U/L (14-59); Albumin Globulin Ratio 1.2; Albumin Level 4.4 g/dL (3.4-5.0); Alkaline Phosphatase 53 U/L (46-116); Anion Gap 12.6; Aspartate Amino Transferase 15 U/L (15-37); BUN Creatinine Ratio 12.6; Bilirubin Total 0.4 mg/dL (0.2-1.0); Calcium 9.1 mg/dL (8.5-10.1); Carbon Dioxide 25.2 mmol/L (21.0-32.0); Chloride 103 mmol/L (98-107); Estimated GFR (African America >60 (>=60); Estimated GFR (Non-African Ame >60 (>=60); Globulin 3.6 g/dL; Glucose 111 mg/dL (74-106); Potassium 3.8 mmol/L (3.5-5.1); Sodium 137 mmol/L (136-145)
[2023-07-06 18:16] LABS: Bilirubin Urine NEGATIVE (NEGATIVE); Blood Urine NEGATIVE (NEGATIVE); Clarity Urine CLEAR (CLEAR); Color Urine LT. YELLOW (YELLOW); Glucose Urine UA NEGATIVE (NEGATIVE); Ketones Urine TRACE mg/dL (NEGATIVE); Leukocyte Esterase Urine NEGATIVE (NEGATIVE); Nitrite Urine NEGATIVE (NEGATIVE); Protein Urine NEGATIVE (NEG/TRACE); Urobilinogen Urine 0.2 EU/dL (0.2-1.0)
[2023-07-06 18:19] LABS: Urine Microscopic Indicated NO
--- NOTE | 2023-07-06 18:26 | US_ITS ---
The [address] [address] Patient Name: JARRELL WHITING MRN: [id number] date: 1990 Sex: F Assigned Patient Location: ER Current Patient Location: ER Accession/Order Number: [id number] Exam Date: 07/06/2023 18:30 Report Date: 07/06/2023 19:52 At the request of: TEJ KENNEY Procedure: US right upper quadrant EXAM: Abdominal ultrasound limited CLINICAL INDICATION: Abdominal pain. COMPARISON: CT scan dated 06/06/2021 TECHNIQUE: Grayscale and color Doppler imaging was performed of the right upper quadrant abdomen. FINDINGS: Liver: Normal hepatic echotexture. No hepatomegaly. Hyperechoic left hepatic lesion measuring up to 2.0 x 1.1 x 1.4 cm, this is not substantially changed compared to 05/01/2021. Portal and hepatic veins are grossly patent. Gallbladder: No cholelithiasis. No gallbladder wall thickening. No pericholecystic fluid. No evidence of sonographic Villa's sign noted by the refrigeration repair supervisor. Nondilated gallbladder. Biliary: No intrahepatic biliary ductal dilation. Common bile duct measures 6 mm. Kidneys: No right hydronephrosis. No sonographically evident right renal calculi. No right renal masses. Right kidney measures 11.6 cm length. Aorta/IVC: Patent and normal caliber where visualized. No ascites. US/US right upper quadrant IMPRESSION: 1. No acute sonographic abnormalities in the right upper quadrant. 2. Hyperechoic left hepatic masses chronic and likely represents a hemangioma. Electronically authenticated by: ANDREA MCDONALD Date: 07/06/2023 19:52
[2023-07-06 19:57] VITALS: BP 117/84; PULSE 66; RESP 18; O2SAT 99
== END 2023-07-06 20:09 | disposition home or self-care (01) ==
PROVIDERS: Physician Assistant; Emergency Provider Emergency Medicine Emergency Medical Services; PCP Family Medicine
DX: R10.9 Unspecified abdominal pain (principal); Z79.899 Other long term (current) drug therapy; F17.210 Nicotine dependence, cigarettes, uncomplicated
CPT/HCPCS: 36415; 76705; 80053; 81003; 83605; 83690; 84703; 85025; 96361; 96374; 96375; 99285; J2405

== ENCOUNTER 2024-04-20 12:15 | Outpatient (OUT) | payer MEDICAID, SELFPAY ==
--- OUTSIDE RECORDS SUMMARY | 2024-04-20 12:19 | XMS_ITS | CCD ---
Author Organization [facility] Care Team Providers Care Chemistry Quality Control Analyst Name Role Phone YARI ., DR TONEY Attending Unavailable HOY ., DR TONEY Admitting Unavailable HOY ., DR TONEY Primary Care Unavailable HOY ., DR TONEY Consulting Unavailable HOY ., DR TONEY Admitting Unavailable HOY ., DR TONEY Primary Care Unavailable HOY ., DR TONEY Consulting Unavailable DILANY ., DR TONEY Attending Unavailable FENG GREENBERG Primary Care Unavailable ANDREA TSE Attending Unavailable FENG GREENBERG Primary Care Unavailable TK GLEZ Attending Unavailable LEONIDAS JUDD Referring Unavailable FENG GREENBERG Primary Care Unavailable Allergies Allergy Classification Reported Allergen(s) Allergy Type Date of Onset Reaction(s) Facility (1 source) Acetaminophen / HYDROcodone Drug Allergy 11-28-2014 [facility] Repository (1 source) Acetaminophen / HYDROcodone; Translations: [HYDROCODONE-ACETA MINOPHEN] Drug Allergy 05-10-2021 [facility] Repository Problems Active Problems Problem Classification Problem Date Documented Date Episodic/Chronic Abdominal pain (1 source) Abdominal pain Onset: 04-12-2024 Episodic Noninfectious gastroenteritis (1 source) Noninfective gastroenteritis and colitis, unspecified; Translations: [Noninfective gastroenteritis and colitis, unspecified] Onset: 04-12-2024 Episodic Unclassified (1 source) ESOPHAGITIS UNSPEC WITHOUT BLEEDING; Translations: [ESOPHAGITIS UNSPEC WITHOUT BLEEDING] Onset: 09-12-2021 Unclassified (1 source) Abdominal Pain, Vomiting, Diarrhea Onset: 11-23-2023 Past or Other Problems Problem Classification Problem Date Documented Da te Episodic/Chronic Gastritis and duodenitis (4 sources) Gastritis, unspecified, without bleeding; Translations: [GASTRITIS UNS WITHOUT BLEEDING] Onset: 09-11-2021 Episodic Nausea and vomiting (2 sources) Nausea with vomiting, unspecified; Translations: [Vomiting] Onset: 11-23-2023 Episodic Other gastrointestinal disorders (1 source) Diarrhea, unspecified; Translations: [Diarrhea, unspecified] Onset: 11-23-2023 Episodic Other gastrointestinal disorders (1 source) Diarrhea Onset: 11-23-2023 Episodic Results Test Name Value Interpretation Reference Range Facility GI PANELon 04-14-2024 Gastrointestinal pathogens DNA and RNA panel ASHUTOSH+non-probe (Stl) SPECIMEN SOURCE STOOL CAMPYLOBACTER Not detected (qualifier value) PLESIOMONAS Not detected (qualifier value) SALMONELLA Not detected (qualifier value) VIBRIO Not detected (qualifier value) VIBRIO CHOLERAE Not detected (qualifier value) Y. ENTEROCOLITICA Not detected (qualifier value) AGGREGATIVE E COLI Not detected (qualifier value) PATHOGENIC E COLI Not detected (qualifier value) TOXIGENIC E COLI Not detected (qualifier value) SHIGA TOXIN E COLI Not detected (qualifier value) SHIGELLA-E COLI Not detected (qualifier value) CRYPTOSPORIDIUM Not detected (qualifier value) CYCLOSPORA Not detected (qualifier value) E HISTOLYTICA Not detected (qualifier value) GIARDIA LAMBLIA Not detected (qualifier value) ADENOVIRUS Not detected (qualifier value) ASTROVIRUS Not detected (qualifier value) NOROVIRUS Not detected (qualifier value) ROTAVIRUS A Not detected (qualifier value) SAPOVIRUS Not detected (qualifier value) Normal NDET [facility] Comment on above: Performed By: #### C CANDACE HARMAN, 3039-3 #### [facility] ([id number]) [address] [place] [address] 63154 CBC AND AUTO DIFFon 04-12-20 24 ABSOLUTE BASOPHIL 0.0 X10E9/L Normal 0.0-0.2 [facility] Comment on above: Performed By: #### C CANDACE HARMAN, 3039- #### [facility] ([id number]) [address] [place] [address] [place] [address] ABSOLUTE NEUTROPHIL 9.5 X10E9/L High 1.5-6.6 [facility] Comment on above: Performed By: #### C CANDACE HARMAN, 3040-3 #### [facility] ([id number]) [address] [place] [address] 39770 Basophils/100 WBC (Bld) 0.2 % Normal [facility] Comment on above: Performed By: #### C KIMANI, CMP, 3039-3 #### [facility] ([id number]) [address] [place] [address] 15341 Eosinophils (Bld) [#/Vol] 0.0 10*3/uL Normal 0.0-0.[address] [facility] Comment on above: Performed By: #### C CANDACE HARMAN, 3039-08 #### [facility] ([id number]) [address] [place] [address] 39350 Eosinophils/100 WBC (Bld) 0.3 % Normal [facility] Comment on above: Performed By: #### C CANDACE HARMAN, 3 #### [facility] ([id number]) [address] [place] [address] 15370 Erythrocyte distribution width (RBC) [Ratio] 15.3 % High 11.5-15.[address] [facility] Comment on above: Performed By: #### C KIMANI CMP, 3 #### [facility] ([id number]) [address] [place] [address] 67704 Hematocrit (Bld) [Volume fraction] 38.5 % Normal 35-[address] [facility] Comment on above: Performed By: #### C KIMANI CMP, 3 #### [facility] ([id number]) [address] [place] [address] 46332 Hemoglobin (Bld) [Mass/Vol] 12.8 g/dL Normal 11.7-15.[address] [facility] Comment on above: Performed By: #### C KIMANI CMP, 3039-3 #### [facility] ([id number]) [address] [place] [address] Lymphocytes (Bld) [#/Vol] 1.1 10*3/uL Normal 1.0-3.[address] [facility] Comment on above: Performed By: #### Jairon HARMAN CMP, 3039-08 #### [facility] ([id number]) [address] [place] [address] 97626 Lymphocytes/100 WBC (Bld) 9.9 % Normal [facility] Comment on above: Performed By: #### Jairon HARMAN CMP, 3039-08 #### [facility] ([id number]) [address] [place] [address] 50963 MCH (RBC) [Entitic mass] 27.7 pg Normal 27-[address] [facility] Comment on above: Performed By: #### Jairon HARMAN CMP, 3039-08 #### [facility] ([id number]) [address] [place] [address] 30861 MCHC (RBC) [Mass/Vol] 33.2 g/dL Normal 32-[address] [facility] Comment on above: Performed By: #### Jairon HARMAN CMP, 3039-08 #### [facility] ([id number]) [address] [place] [address] 42384 MCV (RBC) [Entitic vol] 84 fL Normal 80-[address] [facility] Comment on above: Performed By: #### Jairon HARMAN CMP, 3039-08 #### [facility] ([id number]) [address] [place] [address] 81144 Monocytes (Bld) [#/Vol] 0.7 10*3/uL Normal 0-0.[address] [facility] Comment on above: Performed By: #### Jairon HARMAN CMP, 3039-08 #### [facility] ([id number]) [address] [place] [address] 29026 Monocytes/100 WBC (Bld) 6.2 % Normal [facility] Comment on above: Performed By: #### C BCA, CMP, 3039-3 #### [facility] ([id number]) [address] [place] [address] 29209 Neutrophils/100 WBC (Bld) 83.4 % Normal [facility] Comment on above: Performed By: #### Jairon BCA, CMP, 3039-3 #### [facility] ([id number]) [address] [place] [address] 82610 Platelet mean volume (Bld) [Entitic vol] 9.7 fL Normal 7-[address] [facility] Comment on above: Performed By: #### Jairon HARMAN, CMP, 3039-3 #### [facility] ([id number]) [address] [place] [address] 02092 Platelets (Bld) [#/Vol] 177 10*3/uL Normal 150-[address] [facility] Comment on above: Performed By: #### Jairon BCA, CMP, 3039-3 #### [facility] ([id number]) [address] [place] [address] 30269 RBC COUNT 4.62 X10E12/L Normal 3.80-5.[address] [facility] Comment on above: Performed By: #### Jairon BCA, CMP, 3039-3 #### [facility] ([id number]) [address] [place] [address] 31563 WBC (Bld) [#/Vol] 11.3 10*3/uL High 4.0-11.0 [facility] Comment on above: Performed By: #### Jairon BCA, CMP, 3039-3 #### [facility] ([id number]) [address] [place] [address] 18679 COMPREHENSIVE METABOLIC PANE Bill 04-12-2024 Albumin [Mass/Vol] 4.8 g/dL Normal 3.2-5.3 [facility] Comment on above: Performed By: #### C BCA, CMP, 3039-3 #### [facility] ([id number]) [address] [place] [address] 73585 ALP [Catalytic activity/Vol] 51 U/L Normal 39-[address] [facility] Comment on above: Performed By: #### C BCA, CMP, 3039-3 #### [facility] ([id number]) [address] [place] [address] 64705 ALT [Catalytic activity/Vol] 14 U/L Normal 0-[address] [facility] Comment on above: Performed By: #### C BCA, CMP, 3039-3 #### [facility] ([id number]) [address] [place] [address] 15498 Anion gap [Moles/Vol] 7 mmol/L Normal 5-[address] [facility] Comment on above: Performed By: #### C BCA, CMP, 3039-3 #### [facility] ([id number]) [address] [place] [address] 07814 AST [Catalytic activity/Vol] 21 U/L Normal 0-[address] [facility] Comment on above: Performed By: #### C BCA, CMP, 3039-3 #### [facility] ([id number]) [address] [place] [address] 53635 Bilirubin [Mass/Vol] 0.4 mg/dL Normal 0.3-1.[address] [facility] Comment on above: Performed By: #### C BCA, CMP, 3039-3 #### [facility] ([id number]) [address] [place] [address] 56336 Calcium [Mass/Vol] 9.0 mg/dL Normal 8.5-10.5 [facility] Comment on above: Performed By: #### C BCA, CMP, 3039-3 #### [facility] ([id number]) [address] [place] [address], [place] [address] Chloride [Moles/Vol] 103 mmol/L Normal 98-[address] [facility] Comment on above: Performed By: #### C CANDACE HARMAN, 3040-3 #### [facility] ([id number]) [address] [place] [address] 70235 CO2 [Moles/Vol] 24 mmol/L Normal 22-[address] [facility] Comment on above: Performed By: #### C CANDACE HARMAN, 3039-3 #### [facility] ([id number]) [address] [place] [address] 31539 Creatinine [Mass/Vol] 0.79 mg/dL Normal 0.40-1.[address] [facility] Comment on above: Result Comment: METH OD TRACEABLE TO IDMS STANDARD Performed By: #### C CANDACE HARMAN, 3 #### [facility] ([id number]) [address] [place] [address] 59131 eGFR (CKD-EPI) NON-RACE DEPENDENT >90 Normal >[address] [facility] Comment on above: Result Comment: Reported eGFR is based on the CKD-EPI 2020 equation that does not use a race coefficient. Performed By: #### C CANDACE HARMAN, 0-3 #### [facility] ([id number]) [address] [place] [address] 45111 Glucose [Mass/Vol] 108 mg/dL High 65-99 [facility] Comment on above: Performed By: #### C CANDACE HARMAN, 3039-3 #### [facility] ([id number]) [address] [place] [address] 40278 Potassium [Moles/Vol] 4.0 mmol/L Normal 3.5-5.[address] [facility] Comment on above: Performed By: #### C CANDACE HARMAN, 3039-3 #### [facility] ([id number]) [address] [place] [address] 75008 Protein [Mass/Vol] 7.4 g/dL Normal 6.0-8.0 [facility] Comment on above: Performed By: #### C KIMANI [facility], 3040-3 #### [facility] ([id number]) [address] [place] [address] Sodium [Moles/Vol] 134 mmol/L Normal 134-146 [facility] Comment on above: Performed By: #### C KIMANI [facility], 3040-3 #### [facility] ([id number]) [address] [place] [address] Urea nitrogen [Mass/Vol] 13 mg/dL Normal 5-[address] [facility] Comment on above: Performed By: #### C KIMANI [facility], 3040-3 #### [facility] ([id number]) [address] [place] [address] CT ABDOMEN AND PELVIS W CONT on 04-12-2024 CT ABDOMEN AND PELVIS W CONT CT ABDOMEN AND PELVIS W CONT History: Abdominal pain. History of liver lesions. Exam: CT abdomen pelvis with contrast 100 ml Omnipaque 300. All CT scans at this facility use dose modulation, iterative reconstruction, and/or weight based dosing when appropriate to reduce radiation dose to as low as reasonably achievable. Comparison: CT pelvis 02/16/2009 CT abdomen with contrast: Liver, spleen, pancreas, adrenal glands and kidneys are within normal limits. No free intraperitoneal air or fluid. No enlarged lymph nodes. The gallbladder is unremarkable for CT technique. No abdominal aortic aneurysm. CT pelvis with contrast: Moderate bowel wall thickening of the cecum adjacent free fluid. Terminal and, appendix identified, within normal limits. Oral contrast has progressed to the ascending colon. Minimal free fluid low pelvis. No enlarged nodes. No osseous destructive lesions. IMPRESSION: Colitis involving the cecum. Minimal free fluid. No evidence for abscess, perforation or obstruction. The liver lesions identified. Finalized by Koko Reyez MD on 04/12/2024 2:[address] [facility] HCG ( test) Ql (U)o n 10-15-2024 Beta HCG ( test) Ql (U) Negative Normal NEG [facility] Comment on above: Performed By: #### 2 106-3 #### [facility] ([id number]) [address] [place] [address], [place] [address] LIPASEon 04-12-2024 Lipase [Catalytic activity/Vol] 34 U/L Normal 17-[address] [facility] Comment on above: Performed By: #### C BCA, CMP, 3040-3 #### [facility] ([id number]) [address] [place] [address] [place] [address] URN MACROSCOPIC NURon 2023 BILIRUBIN ROSA MARIA Negative Normal [facility] Comment on above: Performed By: #### N UM #### [facility] ([id number]) [address] [place] [address] [place] [address] BLOOD/HGB ROSA MARIA MODERATE Abnormal [facility] Comment on above: Performed By: #### N UM #### [facility] ([id number]) [address] [place] [address] [place] [address] GLUCOSE ROSA MARIA Negative Normal [facility] Comment on above: Performed By: #### N UM #### [facility] ([id number]) [address] [place] [address] [place] [address] KETONES ROSA MARIA Negative Normal [facility] Comment on above: Performed By: #### N UM #### [facility] ([id number]) [address] [place] [address] [place] [address] LEUKOCYTE ESTERASE ROSA MARIA Negative Normal [facility] Comment on above: Performed By: #### N UM #### [facility] ([id number]) [address] [place] [address] [place] [address] NITRITE ROSA MARIA Negative Normal [facility] Comment on above: Performed By: #### N UM #### [facility] ([id number]) [address] [place] [address] 81456 PH ROSA MARIA 5.5 Normal 5.0-8.[address] [facility] Comment on above: Performed By: #### N UM #### [facility] ([id number]) [address] [place] [address] 79213 PROTEIN ROSA MARIA Negative Normal NEG [facility] Comment on above: Performed By: #### N UM #### [facility] ([id number]) [address] [place] [address] 03668 SPECIFIC GRAVITY ROSA MARIA 1.025 Normal 1.003-1.[address] [facility] Comment on above: Performed By: #### N UM #### [facility] ([id number]) [address] [place] [address] 59080 UROBILINOGEN ROSA MARIA 0.2 eu/dL Normal <1.1 [facility] Comment on above: Performed By: #### N UM #### [facility] ([id number]) [address] [place] [address] 73461 CBC AND AUTO DIFFon 11-23-19 24 ABSOLUTE BASOPHIL 0.0 X10E9/L Normal 0.0-0.2 [facility] Comment on above: Performed By: #### C BCA, CMP, 3040-3 #### [facility] ([id number]) [address] [place] [address] 78915 ABSOLUTE NEUTROPHIL 4.3 X10E9/L Normal 1.5-6.6 [facility] Comment on above: Performed By: #### C BCA, CMP, 3040-3 #### [facility] ([id number]) [address] [place] [address] 31092 Basophils/100 WBC (Bld) 0.7 % Normal [facility] Comment on above: Performed By: #### C BCA, CMP, 3040-3 #### [facility] ([id number]) [address] [place] [address] 62608 Eosinophils (Bld) [#/Vol] 0.1 10*3/uL Normal 0.0-0.[address] [facility] Comment on above: Performed By: #### Jairon HARMAN CMP, 3039-3 #### [facility] ([id number]) [address] [place] [address] 29714 Eosinophils/100 WBC (Bld) 1.3 % Normal [facility] Comment on above: Performed By: #### Jairon HARMAN [facility], 3039-08 #### [facility] ([id number]) [address] [place] [address] 21090 Erythrocyte distribution width (RBC) [Ratio] 14.1 % Normal 11.5-15.[address] [facility] Comment on above: Performed By: #### Jairon HARMAN [facility], 3 #### [facility] ([id number]) [address] [place] [address] 93155 Hematocrit (Bld) [Volume fraction] 35.1 % Normal 35-[address] [facility] Comment on above: Performed By: #### Jairon HARMAN [facility], 3039-08 #### [facility] ([id number]) [address] [place] [address] 99734 Hemoglobin (Bld) [Mass/Vol] 12.4 g/dL Normal 11.7-15.[address] [facility] Comment on above: Performed By: #### Jairon HARMAN [facility], 3039-08 #### [facility] ([id number]) [address] [place] [address] 70534 Lymphocytes (Bld) [#/Vol] 1.1 10*3/uL Normal 1.0-3.[address] [facility] Comment on above: Performed By: #### Jairon HARMAN CMP, 3 #### [facility] ([id number]) [address] [place] [address] 69510 Lymphocytes/100 WBC (Bld) 18.5 % Normal [facility] Comment on above: Performed By: #### Jairon HARMAN CMP, 3039-08 #### [facility] ([id number]) [address] [place] [address] 57837 MCH (RBC) [Entitic mass] 29.7 pg Normal 27-[address] [facility] Comment on above: Performed By: #### Jairon HARMAN CMP, 3039-08 #### [facility] ([id number]) [address] [place] [address] 86270 MCHC (RBC) [Mass/Vol] 35.3 g/dL Normal 32-[address] [facility] Comment on above: Performed By: #### Jairon HARMAN CMP, 3039-08 #### [facility] ([id number]) [address] [place] [address] 79723 MCV (RBC) [Entitic vol] 84 fL Normal 80-[address] [facility] Comment on above: Performed By: #### Jairon HARMAN CMP, 3039-08 #### [facility] ([id number]) [address] [place] [address] 08198 Monocytes (Bld) [#/Vol] 0.6 10*3/uL Normal 0-0.[address] [facility] Comment on above: Performed By: #### Jairon HARMAN CMP, 3039-08 #### [facility] ([id number]) [address] [place] [address] 31469 Monocytes/100 WBC (Bld) 10.3 % Normal [facility] Comment on above: Performed By: #### Jairon HARMAN CMP, 3039-08 #### [facility] ([id number]) [address] [place] [address] 80419 Neutrophils/100 WBC (Bld) 69.2 % Normal [facility] Comment on above: Performed By: #### Jairon HARMAN CMP, 3040-3 #### [facility] ([id number]) [address] [place] [address] 28296 Platelet mean volume (Bld) [Entitic vol] 9.8 fL Normal 7-[address] [facility] Comment on above: Performed By: #### Jairon HARMAN CMP, 3039-3 #### [facility] ([id number]) [address] [place] [address] 34086 Platelets (Bld) [#/Vol] 160 10*3/uL Normal 150-[address] [facility] Comment on above: Performed By: #### Jairon HARMAN CMP, 3039-3 #### [facility] ([id number]) [address] [place] [address] 18296 RBC COUNT 4.17 X10E12/L Normal 3.80-5.[address] [facility] Comment on above: Performed By: #### Jairon HARMAN CMP, 3 #### [facility] ([id number]) [address] [place] [address] 20542 WBC (Bld) [#/Vol] 6.2 10*3/uL Normal 4.0-11.0 [facility] Comment on above: Performed By: #### Jairon HARMAN CMP, 3039-3 #### [facility] ([id number]) [address] [place] [address] 48584 COMPREHENSIVE METABOLIC PANE Bill 11-23-2023 Albumin [Mass/Vol] 4.2 g/dL Normal 3.2-5.3 [facility] Comment on above: Performed By: #### Jairon HARMAN CMP, 3039-3 #### [facility] ([id number]) [address] [place] [address] 38953 ALP [Catalytic activity/Vol] 50 U/L Normal 39-[address] [facility] Comment on above: Performed By: #### Jairon BCA, CMP, 3039-3 #### [facility] ([id number]) [address] [place] [address] 48240 ALT [Catalytic activity/Vol] 18 U/L Normal 0-[address] [facility] Comment on above: Performed By: #### C BCA, CMP, 0-3 #### [facility] ([id number]) [address] [place] [address] 26724 Anion gap [Moles/Vol] 5 mmol/L Normal 5-[address] [facility] Comment on above: Performed By: #### C KIMANI, CMP, 3 #### [facility] ([id number]) [address] [place] [address] 24702 AST [Catalytic activity/Vol] 20 U/L Normal 0-[address] [facility] Comment on above: Performed By: #### Jairon HARMAN, CMP, 3 #### [facility] ([id number]) [address] [place] [address] [place] [address] Bilirubin [Mass/Vol] 0.2 mg/dL Low 0.3-1.[address] [facility] Comment on above: Performed By: #### Jairon HARMAN, CMP, 3 #### [facility] ([id number]) [address] [place] [address] 84589 Calcium [Mass/Vol] 8.8 mg/dL Normal 8.5-10.5 [facility] Comment on above: Performed By: #### C BCA, CMP, 3039-3 #### [facility] ([id number]) [address] [place] [address] 32647 Chloride [Moles/Vol] 104 mmol/L Normal 98-[address] [facility] Comment on above: Performed By: #### C BCA, CMP, 3039-3 #### [facility] ([id number]) [address] [place] [address] 21703 CO2 [Moles/Vol] 25 mmol/L Normal 22-[address] [facility] Comment on above: Performed By: #### C KIMANI [facility], 3040-3 #### [facility] ([id number]) [address] [place] [address] 76707 Creatinine [Mass/Vol] 0.63 mg/dL Normal 0.40-1.[address] [facility] Comment on above: Result Comment: METH OD TRACEABLE TO IDMS STANDARD Performed By: #### C CANDACE HARMAN, 3 #### [facility] ([id number]) [address] [place] [address] 46150 eGFR (CKD-EPI) NON-RACE DEPENDENT >90 Normal >[address] [facility] Comment on above: Result Comment: Reported eGFR is based on the CKD-EPI 2020 equation that does not use a race coefficient. Performed By: #### C CANDACE HARMAN, 3039-3 #### [facility] ([id number]) [address] [place] [address] 78261 Glucose [Mass/Vol] 116 mg/dL High 65-99 [facility] Comment on above: Performed By: #### Jairon HARMAN [facility], 3 #### [facility] ([id number]) [address] [place] [address] 75876 Potassium [Moles/Vol] 3.8 mmol/L Normal 3.5-5.[address] [facility] Comment on above: Performed By: #### C CANDACE HARMAN, 3 #### [facility] ([id number]) [address] [place] [address] 98445 Protein [Mass/Vol] 6.7 g/dL Normal 6.0-8.0 [facility] Comment on above: Performed By: #### Jairon HARMAN CMP, 0-3 #### [facility] ([id number]) [address] [place] [address] 96005 Sodium [Moles/Vol] 134 mmol/L Normal 134-146 [facility] on [facility]: Performed By: #### C KIMANI, CMP, 3040-3 #### [facility] ([id number]) [address] [place] [address] 13545 Urea nitrogen [Mass/Vol] 10 mg/dL Normal 5-[address] [facility] Comment on above: Performed By: #### C KIMANI CMP, 3040-3 #### [facility] ([id number]) [address] [place] [address] [id number] HCG ( test) Ql (U)o n 11-23-2023 Beta HCG ( test) Ql (U) Negative Normal NEG [facility] Comment on above: Performed By: #### 2 106-3 #### [facility] ([id number]) [address] [place] [address] 80956 LIPASEon 11-23-2023 Lipase [Catalytic activity/Vol] 49 U/L High 17-[address] [facility] Comment on above: Performed By: #### C KIMANI [facility], 3040-3 #### [facility] ([id number]) [address] [place] [address] [place] [address] URN MACROSCOPIC NURon 2023 BILIRUBIN ROSA MARIA Negative Normal NEG [facility] Comment on above: Performed By: #### N UM #### [facility] [facility] ([id number]) [address] [place] [address] [place] [address] BLOOD/HGB ROSA MARIA Negative Normal NEG [facility] Comment on above: Performed By: #### N UM #### [facility] ([id number]) [address] [place] [address] GLUCOSE ROSA MARIA Negative Normal NEG [facility] Comment on above: Performed By: #### N UM #### [facility] ([id number]) [address] [place] [address] [place] [address] KETONES ROSA MARIA Negative Normal NEG [facility] Comment on above: Performed By: #### N UM #### [facility] ([id number]) [address] [place] [address] LEUKOCYTE ESTERASE ROSA MARIA Negative Normal NEG [facility] Comment on above: Performed By: #### N UM #### [facility] ([id number]) [address] [place] [address] NITRITE ROSA MARIA Negative Normal NEG [facility] Comment on above: Performed By: #### N UM #### [facility] ([id number]) [address] [place] [address] 11947 PH ROSA MARIA 7.0 Normal 5.0-8.[address] [facility] Comment on above: Performed By: #### N UM #### [facility] ([id number]) [address] [place] [address]23 PROTEIN ROSA MARIA Negative Normal NEG [facility] Comment on above: Performed By: #### N UM #### [facility] ([id number]) [address] [place] [address] SPECIFIC GRAVITY ROSA MARIA 1.010 Normal 1.003-1.[address] [facility] Comment on above: Performed By: #### N UM #### [facility] ([id number]) [address] [place] [address] UROBILINOGEN ROSA MARIA 0.2 eu/dL Normal <1.1 [facility] Comment on above: Performed By: #### N UM #### [facility] ([id number]) [address] [place] [address] H PYLORI ANTIBODY IGGon 06-30 H. PYLORI IGG ABS 0.46 Index Value Normal 0.00-0.79 [facility] Comment on above: Result Comment: Nega tive <0.80 Equivocal 0.80 - 0.89 Positive >0.89 Performed By: #### H PYLLC #### [facility] [address] [address] [address] Donna Cornejo AMYLASEon 07-21-2022 Amylase [Catalytic activity/Vol] 83 U/L Normal 25-115 [facility] Comment on above: Performed By: #### A MY, CMP, LIPA, LIPID, T7, TSH #### [facility] [address] [place] [address] Dr. Donna Cornejo CBC AUTO DIFFon 07-21-2022 BASO # 0.0 103/ul Normal 0.0-0.1 [facility] Comment on above: Performed By: #### C BC #### [facility] [address] [place] [address] Dr. Donna Cornejo Basophils/100 WBC (Bld) 0.5 % Normal 0.2-2.0 [facility] Comment on above: Performed By: #### C BC #### [facility] [address] [place] [address] Dr. Donna Cornejo EO # 0.1 103/ul Normal 0.0-0.7 [facility] Comment on above: Performed By: #### C BC #### [facility] [address] [place] [address] Dr. Donna Cornejo Eosinophils/100 WBC (Bld) 1.7 % Normal 0.9-7.0 [facility] Comment on above: Performed By: #### C BC #### [facility] [address] [place] [address] Dr. Donna Cornejo Erythrocyte distribution width (RBC) [Ratio] 13.4 % Normal 11.0-15.0 [facility] Comment on above: Performed By: #### C BC #### [facility] [address] [place] [address] Dr. Donna Cornejo Hematocrit (Bld) [Volume fraction] 37.4 % Normal 36.0-48.0 [facility] Comment on above: Performed By: #### C BC #### [facility] [address] [place] [address] Dr. Donna Cornejo Hemoglobin (Bld) [Mass/Vol] 13.1 g/dL Normal 12.0-16.0 [facility] Comment on above: Performed By: #### C BC #### [facility] [address] [place] [address] Dr. Donna Cornejo IG # 0.01 10e3/ul Normal 0.00-0.03 [facility] Comment on above: Performed By: #### C BC #### [facility] [address] [place] [address] Dr. Donna Cornejo IG % 0.2 % Normal 0.0-0.5 [facility] Comment on above: Performed By: #### C BC #### [facility] [address] [place] [address] Dr. Donna Cornejo LYMPH # 2.5 103/ul Normal 1.2-3.8 [facility] Comment on above: Performed By: #### C BC #### [facility] [address] [place] [address] Dr. Donna Cornejo Lymphocytes/100 WBC (Bld) 41.8 % Normal 20.5-60.0 [facility] Comment on above: Performed By: #### C BC #### [facility] [address] [place] [address] Dr. Donna Cornejo MANUAL DIFF REQ NO Normal [facility] Comment on above: Performed By: #### C BC #### [facility] [address] [place] [address] Dr. Donna Cornejo MCH (RBC) [Entitic mass] 28.0 pg Normal 26.7-34.0 [facility] Comment on above: Performed By: #### C BC #### [facility] [address] [place] [address] Dr. Donna Cornejo MCHC (RBC) [Mass/Vol] 35.0 g/dL Normal 29.9-35.2 [facility] Comment on above: Performed By: #### C BC #### [facility] [address] [place] [address] Dr. Donna Cornejo MCV (RBC) [Entitic vol] 79.9 fL Critically low 81.0-99.0 [facility] Comment on above: Performed By: #### C BC #### [facility] [address] [address] [address] Donna Cornejo MONO # 0.5 103/ul Normal 0.3-0.8 [facility] Comment on above: Performed By: #### C BC #### [facility] [address] [address] [address] Donna Cornejo Monocytes/100 WBC (Bld) 8.5 % Normal 1.7-12.0 [facility] Comment on above: Performed By: #### C BC #### [facility] [address] [place] [address] Dr. Donna Cornejo NEUT # 2.8 103/ul Normal 1.4-6.5 [facility] Comment on above: Performed By: #### C BC #### [facility] [address] [place] [address] Dr. Donna Cornejo Neutrophils/100 WBC (Bld) 47.3 % Normal 43.0-75.0 [facility] Comment on above: Performed By: #### C BC #### [facility] [address] [place] [address] Dr. Donna Cornejo Platelet mean volume (Bld) [Entitic vol] 11.1 fL Normal 9.5-13.5 [facility] Comment on above: Performed By: #### C BC #### [facility] [address] [place] [address] Dr. Donna Cornejo PLT 187 103/ul Normal 150-450 [facility] Comment on above: Performed By: #### C BC #### [facility] [address] [place] [address] Dr. Donna Cornejo RBC 4.68 106/ul Normal 4.20-5.40 [facility] Comment on above: Performed By: #### C BC #### [facility] [address] [place] [address] Dr. Donna Cornejo WBC 6.0 103/ul Normal 4.0-11.0 [facility] Comment on above: Performed By: #### C BC #### [facility] [address] [place] [address] Dr. Donna Cornejo FREE THYROXINE INDEX T7on FTI 3.17 Normal 1.30-4.50 [facility] Comment on above: Performed By: #### A MY, CMP, LIPA, LIPID, T7, TSH #### [facility] [address] [place] [address] Dr. Donna Cornejo T3U 36.0 % Normal 30.0-39.0 [facility] Comment on above: Performed By: #### A MY, CMP, LIPA, LIPID, T7, TSH #### [facility] [address] [place] [address] Dr. Donna Cornejo T4 [Mass/Vol] 8.80 ug/dL Normal 4.80-13.90 [facility] Comment on above: Performed By: #### A MY, CMP, LIPA, LIPID, T7, TSH #### [facility] [address] [place] [address] Dr. Donna Cornejo GLYCOHEMOGLOBIN A1Con 2022 ADA RECOMMENDATION SEE BELOW Normal [facility] Comment on above: Result Comment: ADA RECOMMENDED LIMIT 4.0 - 6.0 ADA THERAPEUTIC TARGET < 7.0 ACTION SUGGESTED > 7.0 Performed By: #### A 1C #### [facility] [address] [place] [address] Dr. Donna Cornejo Glucose [Mass/Vol] 114 mg/dL Normal [facility] Comment on above: Performed By: #### A 1C #### [facility] [address] [place] [address] Dr. Donna Cornejo HbA1c (Bld) [Mass fraction] 5.6 % Normal 4.5-6.2 [facility] Comment on above: Performed By: #### A 1C #### [facility] [address] [place] [address] Dr. Donna Cornejo IRONon 07-21-2022 Iron [Mass/Vol] 55.0 ug/dL Normal 50.0-170.0 [facility] Comment on above: Performed By: #### I JENNA #### [facility] [address] [address] [address] Donna Cornejo LIPASEon 07-21-2022 Lipase [Catalytic activity/Vol] 181.0 U/L Normal 73.0-393.0 [facility] Comment on above: Performed By: #### A MY, CMP, LIPA, LIPID, T7, TSH #### [facility] [address] [place] [address] Dr. Donna Cornejo LIPID PROFILEon 07-21-2022 CHOL-HDL RATIO NORM SEE BELOW Normal [facility] Comment on above: Result Comment: 3.3 - 4.4 LOW RISK 4.4 - 7.1 AVERAGE RISK 7.1 - 11.0 MODERATE RISK >11.0 HIGH RISK Performed By: #### A MY, CMP, LIPA, LIPID, T7, TSH #### [facility] [address] [place] [address] Dr. Donna Cornejo Cholesterol [Mass/Vol] 138 mg/dL Normal <=200 [facility] Comment on above: Performed By: #### A MY, CMP, LIPA, LIPID, T7, TSH #### [facility] [address] [place] [address] Dr. Donna Cornejo Cholesterol in HDL [Mass/Vol] 53 mg/dL Normal 40-60 [facility] Comment on above: Performed By: #### A MY, CMP, LIPA, LIPID, T7, TSH #### [facility] [address] [place] [address] Dr. Donna Cornejo Cholesterol in LDL [Mass/Vol] 73.0 mg/dL Normal [facility] Comment on above: Performed By: #### A MY, CMP, LIPA, LIPID, T7, TSH #### [facility] [address] [place] [address] Dr. Donna Cornejo Cholesterol.total/C holesterol in HDL [Mass ratio] 2.6 {ratio} Normal [facility] Comment on above: Performed By: #### A MY, CMP, LIPA, LIPID, T7, TSH #### [facility] [address] [place] [address] Dr. Donna Cornejo HDL NORMAL > or = 60 mg/dl - LO W CARDIOVASCULAR RISK <40 mg/dl - HIGH CARDIOVASCULAR RISK Normal [facility] Comment on above: Performed By: #### A MY, CMP, LIPA, LIPID, T7, TSH #### [facility] [address] [address] [address] Donna Cornejo LDL CALC NORMAL SEE BELOW Normal [facility] Comment on above: Result Comment: <100 mg/dl OPTIMAL 100 - 129 mg/dl NEAR OR ABOVE OPTIMAL 130 - 159 mg/dl BORDERLINE HIGH 160 - 189 mg/dl HIGH >190 mg/dl VERY HIGH Performed By: #### A MY, CMP, LIPA, LIPID, T7, TSH #### [facility] [address] [address] [address] Donna Cornejo Triglyceride [Mass/Vol] 60 mg/dL Normal <=150 [facility] Comment on above: Performed By: #### A MY, CMP, LIPA, LIPID, T7, TSH #### [facility] [address] [place] [address] Dr. Donna Cornejo VLDL CALC 12.0 mg/dL Normal [facility] Comment on above: Performed By: #### A MY, CMP, LIPA, LIPID, T7, TSH #### [facility] [address] [place] [address] Dr. Donna Cornejo PROF 14(COMP METB)on 023 Albumin [Mass/Vol] 4.2 g/dL Normal 3.4-5.0 [facility] Comment on above: Performed By: #### A MY, CMP, LIPA, LIPID, T7, TSH #### [facility] [address] [place] [address] Dr. Donna Cornejo Albumin/Globulin [Mass ratio] 1.4 {ratio} Normal [facility] Comment on above: Performed By: #### A MY, CMP, LIPA, LIPID, T7, TSH #### [facility] [address] [place] [address] Dr. Donna Cornejo ALP [Catalytic activity/Vol] 57 U/L Normal 46-116 [facility] Comment on above: Performed By: #### A MY, CMP, LIPA, LIPID, T7, TSH #### [facility] [address] [place] [address] Dr. Donna Cornejo ALT [Catalytic activity/Vol] 16 U/L Normal 14-59 [facility] Comment on above: Performed By: #### A MY, CMP, LIPA, LIPID, T7, TSH #### [facility] [address] [place] [address] Dr. Donna Cornejo Anion gap [Moles/Vol] 15.5 mmol/L Normal [facility] Comment on above: Performed By: #### A MY, CMP, LIPA, LIPID, T7, TSH #### [facility] [address] [place] [address] Dr. Donna Cornejo AST [Catalytic activity/Vol] 17 U/L Normal 15-37 [facility] Comment on above: Performed By: #### A MY, CMP, LIPA, LIPID, T7, TSH #### [facility] [address] [place] [address] Dr. Donna Cornejo Bilirubin [Mass/Vol] 0.3 mg/dL Normal 0.2-1.0 [facility] Comment on above: Performed By: #### A MY, CMP, LIPA, LIPID, T7, TSH #### [facility] [address] [place] [address] Dr. Donna Cornejo Calcium [Mass/Vol] 9.5 mg/dL Normal 8.5-10.1 [facility] Comment on above: Performed By: #### A MY, CMP, LIPA, LIPID, T7, TSH #### [facility] [address] [place] [address] Dr. Donna Cornejo Chloride [Moles/Vol] 102 mmol/L Normal 98-107 [facility] Comment on above: Performed By: #### A MY, CMP, LIPA, LIPID, T7, TSH #### [facility] [address] [place] [address] Dr. Donna Cornejo CO2 [Moles/Vol] 24.7 mmol/L Normal 21.0-32.0 [facility] Comment on above: Performed By: #### A MY, CMP, LIPA, LIPID, T7, TSH #### [facility] [address] [place] [address] Dr. Donna Cornejo Creatinine [Mass/Vol] 0.76 mg/dL Normal 0.55-1.02 [facility] Comment on above: Performed By: #### A MY, CMP, LIPA, LIPID, T7, TSH #### [facility] [address] [address] [address] Donna Cornejo EGFR-AF NIGERIEN >60 Normal >=60 [facility] Comment on above: Performed By: #### A MY, CMP, LIPA, LIPID, T7, TSH #### [facility] [address] [place] [address] Dr. Donna Cornejo EGFR-NON AF NIGERIEN >60 Normal >=60 [facility] Comment on above: Performed By: #### A MY, CMP, LIPA, LIPID, T7, TSH #### [facility] [address] [place] [address] Dr. Donna Cornejo Globulin (S) [Mass/Vol] 3.0 g/dL Normal [facility] Comment on above: Performed By: #### A MY, CMP, LIPA, LIPID, T7, TSH #### [facility] [address] [place] [address] Dr. Donna Cornejo Glucose [Mass/Vol] 109 mg/dL Critically high 74-106 [facility] Comment on above: Performed By: #### A MY, CMP, LIPA, LIPID, T7, TSH #### [facility] [address] [place] [address] Dr. Donna Cornejo Potassium [Moles/Vol] 4.2 mmol/L Normal 3.5-5.1 [facility] Comment on above: Performed By: #### A MY, CMP, LIPA, LIPID, T7, TSH #### [facility] [address] [place] [address] Dr. Donna Cornejo Protein [Mass/Vol] 7.2 g/dL Normal 6.4-8.2 [facility] Comment on above: Performed By: #### A MY, CMP, LIPA, LIPID, T7, TSH #### [facility] [address] [place] [address] Dr. Donna Cornejo Sodium [Moles/Vol] 138 mmol/L Normal 136-145 [facility] Comment on above: Performed By: #### A MY, CMP, LIPA, LIPID, T7, TSH #### [facility] [address] [address] [address] Donna Cornejo Urea nitrogen [Mass/Vol] 11.0 mg/dL Normal 7.0-18.0 [facility] Comment on above: Performed By: #### A MY, CMP, LIPA, LIPID, T7, TSH #### [facility] [address] [address] [address] Donna Cornejo Urea nitrogen/Creatinine [Mass ratio] 14.5 mg/mg Normal [facility] Comment on above: Performed By: #### A MY, CMP, LIPA, LIPID, T7, TSH #### [facility] [address] [address] [address] Donna Cornejo TSHon 07-21-2022 TSH 1.608 uIU/mL Normal 0.358-3.740 [facility] Comment on above: Performed By: #### A MY, CMP, LIPA, LIPID, T7, TSH #### [facility] [address] [address] [address] Donna Cornejo General Surgery Office/Clini c [...] low FODMAP diet; may need to see retail marketing coordinator about possible food allergies; call with problems/questions. [...] inactivated - Not Given Patient Refuses Normal [facility] Comment on above: Result Comment: Elec tronically Signed By: POPPY VALDEZ, Fred Liriano\.br\Date and Time Signed: 08/29/21 16:16 EST Ambulatory Visit Summaryon 0 08-28-2021 Ambulatory Visit Summary JARRELL WHITING :1990 Visit Date:08/28/2021 Ambulatory Visit Instructions Your Care Team Attending Physician - Fred MCWILLIAMS MD Primary Care Physician - Feng Greenberg MD This Is Your Medications List albuterol [...] Postprandial abdominal bloating Seasonal allergic rhinitis Normal [facility] Pathology Noteon 08-25-2021 Pathology Note [id number]#[id number]:127 [facility] Operative Reporton Operative Report [id number]#[id number]:127 [facility] Consent for Procedure/Surger yon 08-07-2021 Consent for Procedure/Surgery [id number]#1.00CD:127 [facility] Ambulatory Visit Summaryon 0 08-06-2021 Ambulatory Visit Summary JARRELL WHITING :1990 Visit Date:08/06/2021 Ambulatory Visit Instructions Your Care Team Attending Physician - POPPY VALDEZ, Fred Liriano Primary Care Physician - Yari VALDEZ, Feng Referring Physician - Feng Greenberg MD This Is Your Medications List Contact [...] disc disease Migraine Seasonal allergic rhinitis Normal [facility] Physician Referralon 022 Physician Referral [id number]#[id number]:127 Normal [facility] Encounters Encounter Date Encounter Type Care Provider Facility Start: 04-14-2024 End: 04-14-2024 ambulatory LEONIDAS Tavarez [facility] Start: 04-12-2024 End: 04-12-2024 Emergency department patient visit [facility] Start: 11-23-2023 End: 11-23-2023 Emergency department patient visit [place] Luis [facility] Start: 07-23-2022 Encounter for genera l adult medical examination without abnormal findings DR FENG GREENBERG . [facility] Start: 07-21-2022 End: 07-22-[address] FENG GREENBERG . Facility[facility] Start: 07-21-2022 End: 07-22-2022 Encounter for general adult medical examination without abnormal findings DR FENG GREENBERG . Facility[facility] Start: 09-11-2021 End: 09-12-[address] FENG GREENBERG . Facility[facility] Payers Date Payer Category Payer Unknown [id number] 2.16.84 [id number] 1990 Unknown [id number] 2.16.84 [id number] 1990 Unknown [id number] 2.16.8 [id number] 1990 Unknown [id number] 2.16.8 [id number] 1990 Unknown [id number] 2.16.8 [id number] 1958 Medicaid [id number] 1958 Unknown [id number] Clinical Note 08-06-2021 Note Date & Type Note Facility 08-06-2021 Note Chief Complaint consultation for RUQ pain HPI Staff 31 year old female presents on consultation from Dr. Greenberg for RUQ/epigastric pain with heaviness feeling in [...] adapter, 2 puf (more content not included)... [facility] Comment on above: Result Comment: Elec tronically Signed By: POPPY VALDEZ, Fred Liriano\kathy\Date and Time Signed: 08/06/21 15:12 EST Summary Purpose Family History No Family History Records FoundNo Family History Records FoundNo Family History Records Found Advance Directives No Advanced Directives Records FoundNo Advanced Directives Records FoundNo Advanced Directives Records Found Additional Source Comments INFORMATION SOURCE (unrecogn ized section and content) DATE CREATED AUTHOR 09/15/2021 [facility] DATE CREATED AUTHOR AUTHOR'S ORGANIZ ATION 08/26/2022 [facility] DATE CREATED AUTHOR AUTHOR'S ORGANIZ ATION 04/17/2024 [facility] FOR RECORDS PERTAINING TO PATIENTS WHO ARE [...] BE BASED ON THE PRIMARY CLINICAL RECORDS. [facility]. provides no warranty or guarantee of the accuracy or completeness of information in this document.
[2024-04-20 12:30] LABS: Basophils Percent Auto 0.4 % (0.2-2.0); Eosinophils Absolute Auto 0.1 10^3/uL (0.0-0.7); Eosinophils Percent Auto 1.2 % (0.9-7.0); Hematocrit 37.3 % (36.0-48.0); Hemoglobin 12.5 g/dL (12.0-16.0); Immature Granulocytes Abs Auto 0.02 10^3/uL (0.00-0.03); Immature Granulocytes Pct Auto 0.3 % (0.0-0.5); Lymphocytes Absolute Auto 1.6 10^3/uL (1.2-3.8); Lymphocytes Percent Auto 21.6 % (20.5-60.0); Mean Corpuscular HGB Conc 33.5 g/dL (29.9-35.2); Mean Corpuscular Hemoglobin 28.1 pg (26.7-34.0); Mean Corpuscular Volume 83.8 fL (81.0-99.0); Monocytes Absolute Auto 0.6 10^3/uL (0.3-0.8); Monocytes Percent Auto 8.8 % (1.7-12.0); Neutrophils Absolute Auto 4.9 10^3/uL (1.4-6.5); Neutrophils Percent Auto 67.7 % (43.0-75.0); Platelet Count 189 10^3/uL (150-450); Red Blood Count 4.45 10^6/uL (4.20-5.40); White Blood Count 7.3 10^3/uL (4.0-11.0)
[2024-04-20 12:36] LABS: Erythrocyte Sedimentation Rate 14 mm/hr (<=20)
[2024-04-20 13:15] LABS: Alanine Aminotransferase 15 U/L (14-59); Albumin Globulin Ratio 1.1; Albumin Level 3.7 g/dL (3.4-5.0); Alkaline Phosphatase 53 U/L (46-116); Amylase 72 U/L (25-115); Aspartate Amino Transferase 12 U/L (15-37); BUN Creatinine Ratio 13.2; Bilirubin Total 0.3 mg/dL (0.2-1.0); C Reactive Protein <0.50 mg/dL (<=0.50); Calcium 8.7 mg/dL (8.5-10.1); Carbon Dioxide 27.5 mmol/L (21.0-32.0); Chloride 104 mmol/L (98-107); Estimated GFR (African America >60 (>=60 mL/min/1.73m^2); Estimated GFR (Non-African Ame >60 (>=60 mL/min/1.73m^2); Globulin 3.4 g/dL; Glucose 114 mg/dL (74-106); Potassium 4.5 mmol/L (3.5-5.1); Sodium 141 mmol/L (136-145); Total Protein 7.1 g/dL (6.4-8.2)
== END 2024-04-20 12:16 | disposition home or self-care (01) ==
LOC: LAB 12:16
PROVIDERS: PCP Family Medicine; Visit Provider Family Medicine
DX: K52.9 Noninfective gastroenteritis and colitis, unspecified (principal); D64.9 Anemia, unspecified
CPT/HCPCS: 36415; 80053; 82150; 83540; 83690; 85025; 85652; 86140

== ENCOUNTER 2024-06-20 11:04 | Outpatient (OUT) | payer MEDICAID, SELFPAY ==
[2024-06-20 11:21] LABS: Basophils Percent Auto 0.7 % (0.2-2.0); Eosinophils Percent Auto 0.5 % (0.9-7.0); Hematocrit 36.9 % (36.0-48.0); Hemoglobin 12.2 g/dL (12.0-16.0); Immature Granulocytes Abs Auto 0.01 10^3/uL (0.00-0.03); Immature Granulocytes Pct Auto 0.2 % (0.0-0.5); Lymphocytes Absolute Auto 1.8 10^3/uL (1.2-3.8); Lymphocytes Percent Auto 29.1 % (20.5-60.0); Mean Corpuscular HGB Conc 33.1 g/dL (29.9-35.2); Mean Corpuscular Hemoglobin 27.2 pg (26.7-34.0); Mean Corpuscular Volume 82.4 fL (81.0-99.0); Mean Platelet Volume 11.4 fL (9.5-13.5); Monocytes Absolute Auto 0.6 10^3/uL (0.3-0.8); Monocytes Percent Auto 9.2 % (1.7-12.0); Neutrophils Absolute Auto 3.7 10^3/uL (1.4-6.5); Neutrophils Percent Auto 60.3 % (43.0-75.0); Platelet Count 202 10^3/uL (150-450); Red Blood Count 4.48 10^6/uL (4.20-5.40); White Blood Count 6.1 10^3/uL (4.0-11.0)
[2024-06-20 12:03] LABS: Estimated Average Glucose 117 mg/dL; Glycohemoglobin A1C 5.7 % (4.5-6.2)
[2024-06-20 12:07] LABS: Alanine Aminotransferase 19 U/L (14-59); Albumin Globulin Ratio 1.3; Alkaline Phosphatase 47 U/L (46-116); Anion Gap 13.6; Aspartate Amino Transferase 15 U/L (15-37); BUN Creatinine Ratio 15.9; Bilirubin Total 0.3 mg/dL (0.2-1.0); Carbon Dioxide 26.3 mmol/L (21.0-32.0); Chloride 104 mmol/L (98-107); Chol HDL Ratio 2.6; Cholesterol 161 mg/dL (<=200); Estimated GFR (African America >60 (>=60 mL/min/1.73m^2); Estimated GFR (Non-African Ame >60 (>=60 mL/min/1.73m^2); Free T3 2.99 pg/mL (2.18-3.98); Globulin 3.2 g/dL; Glucose 99 mg/dL (74-106); HDL Cholesterol 62 mg/dL (40-60); Potassium 3.9 mmol/L (3.5-5.1); Sodium 140 mmol/L (136-145); Thyroid Stimulating Hormone 3.431 uIU/mL (0.358-3.740); Total Protein 7.2 g/dL (6.4-8.2); Triglycerides 38 mg/dL (<=150); VLDL CHOLESTEROL 7.6 mg/dL
== END 2024-06-20 11:05 | disposition home or self-care (01) ==
LOC: LAB 11:06
PROVIDERS: PCP Family Medicine; Visit Provider Family Medicine
DX: R53.83 Other fatigue (principal)
CPT/HCPCS: 36415; 80053; 80061; 82306; 83036; 83540; 84436; 84443; 84481; 85025

== ENCOUNTER 2024-07-01 09:56 | Outpatient (OUT) | payer MEDICAID, SELFPAY ==
--- NOTE | 2024-07-01 | XR_ITS ---
[facility] [address] [id number] Patient Name: JARRELL WHITING MRN: [id number] date: 1990 Sex: F Assigned Patient Location: Current Patient Location: Accession/Order Number: [id number] Exam Date: 07/01/2024 10:05 Report Date: 07/04/2024 07:27 At the request of: ZACHERY CLAIRE Procedure: XR lumbar spine 2-3V EXAMINATION: XR lumbar spine 2-3V HISTORY: LUMBAR SPINE PAIN COMPARISON: No relevant comparison available. FINDINGS: BONES: Normal. No significant spondylosis, scoliosis, fracture, or visible bony lesion. DISC SPACES: Normal. No significant disc height narrowing, subluxation, or endplate abnormality. PARASPINOUS: Negative. No paraspinous abnormality is seen. OTHER: Negative. XR/XR lumbar spine 2-3V IMPRESSION: No acute abnormality. Electronically authenticated by: JOSE ALEJANDRO SAUCEDO Date: 07/04/2024 07:27
--- OUTSIDE RECORDS SUMMARY | 2024-07-01 10:05 | XMS_ITS | CCD ---
Author Organization [facility] Care Team Providers Care [employer] Name Role Phone RENEE ., DR TONEY Attending Unavailable RENEE ., DR TONEY Admitting Unavailable HOY ., DR TONEY Primary Care Unavailable DILANY ., DR TONEY Consulting Unavailable DILANY ., DR TONEY Admitting Unavailable HOY ., DR TONEY Primary Care Unavailable HOY ., DR TONEY Consulting Unavailable DILANY ., DR TONEY Attending Unavailable Feng Greenberg MD Primary Care Provider [phone] RENEE FENG M Primary Care Unavailable DELFINO THOMAS Attending Unavailable DILANY, FENG M Primary Care Unavailable KAYLA THOMAS Attending Unavailable LEONIDAS JUDD Referring Unavailable HOY, FENG M Primary Care Unavailable HOY, FENG M Primary Care Unavailable TK GLEZ Attending Unavailable DILANY, FENG M Primary Care Unavailable ANDREA TSE Attending Unavailable DILANY, FENG M Primary Care Unavailable YUNIOR THOMAS Attending Unavailable DELFINO THOMAS Admitting Unavailable JELANI BARDALES Consulting Unavailable RENEA PHIPPS Attending Unavailable HOY, FENG M Referring Unavailable HOY, FENG M Primary Care Unavailable Allergies Allergy Classification Reported Allergen(s) Allergy Type Date of Onset Reaction(s) Facility (1 source) Acetaminophen / HYDROcodone Drug Allergy 11-28-2014 [facility] (5 sources) Acetaminophen / HYDROcodone; Translations: [HYDROCODONE-ACETA MINOPHEN] Drug Allergy 05-10-2021 [facility] Medications Current Medications Medication Drug Class(es) Dates Sig (Normalized) Sig (Original) acetaminophen 325 mg oral tablet (1 source) Start: 06-22-2024 take 1 tablet by mouth every six hours as needed for headache 650 mg, oral, Every 6 hours PRN, headaches, temperature greater than 38.3 C, Starting on Thu06/22/24 at 030 [id number] 200 actuat albuterol 0.09 mg/actuat metered dose inhaler (3 sources) beta2-Adrenergic Agonist take 2 puff(s) by inhalation every six hours as needed for wheezing albuterol (PROVENTIL HFA;VENTOLIN HFA) 90 mcg/actuation inhaler Inhale 2 puffs every 6 (six) hours as needed for wheezing. Active Budesonide / formoterol (3 sources) Corticosteroid, beta2-Adrenergic Agonist take 2 puff(s) by inhalation in the morning budesonide-formote roL (SYMBICORT) 160-4.5 mcg/actuation inhaler Inhale 2 puffs in the morning and 2 puffs before bedtime. Active take 2 puff(s) by in halation in the morning budesonide-formoteroL (SYMBICORT) 160-4. 5 mcg/actuation inhaler Inhale 2 puffs in the morning and 2 puffs before bedtime. 100 ml calcium gluconate 20 mg/ml injection (1 source) Start: 06-22-2024 take 4-4.3 mg intravenously every hour as needed 2,000 mg, intravenous, at 50 mL/hr, Administer over 2 Hours, As needed, ionized calcium 4 to 4.3 mg/dL, Starting on Thu06/22/24 at 030, IV Administration of calcium via a central or deep vein preferred. Avoid administration in small hand veins VESICANT (RED) calcium gluconate 3,000 mg in sodium chloride 0.9 % 100 mL IVPB (1 source) Start: 06-22-2024 take 3.5-3.9 mg intravenously every hour as needed 3,000 mg, intravenous, at 43.3 mL/hr, Administer over 3 Hours, As needed, ionized calcium 3.5 to 3.9 mg/dL, Starting on Thu06/22/24 at 0301, IV Administration of calcium via a central or deep vein preferred. Avoid administration in small hand veins VESICANT (RED) calcium gluconate 4,000 mg in sodium chloride 0.9 % 250 mL IVPB (1 source) Start: 06-22-2024 take 3.4 mg intravenously every hour as needed 4,000 mg, intravenous, at 72.5 mL/hr, Administer over 4 Hours, As needed, ionized calcium 3.4 mg/dL or less, Starting on Thu06/22/24 at 0301, IV administration of calcium via a central or deep vein is preferred. Avoid administration in small hand veins. VESICANT (RED) cephalexin 500 mg oral capsule (1 source) Cephalosporin Antibacterial End: 06-22-2024 take 1 capsule by mouth twice daily CEPHalexin (KEFLEX) 500 mg capsule Take 500 mg by mouth 2 (two) times a day. 06/22/2024 Discontinued (Stop Taking at Discharge) 0.4 ml enoxaparin sodium 100 mg/ml prefilled syringe (1 source) Low Molecular Weight Heparin Start: 06-22-2024 inject 40 mg by subcutaneous injection once daily 40 mg, subcutaneous, Daily, First dose on Thu06/22/24 at 0305, Look-alike/sound-a like medication - verify indication for use. ferrous sulfate 325 mg oral tablet (3 sources) take 1 tablet by mouth twice daily at mealtime ferrous sulfate 325 (65 FE) mg tablet Take 325 mg by mouth 2 (two) times a day with meals. Active gabapentin 300 mg oral capsule (2 sources) Anti-epileptic Agent Start: 06-22-2024 End: 06-25-2024 take 1 capsule by mouth three times daily gabapentin (NEURONTIN) 300 mg capsule Indications: Back pain , Atrophy of muscle of right thigh Take 1 capsule (300 mg total) by mouth 3 (three) times a day for 3 days. 9 capsule 06/22/2024 06/25/2024 Active glucagon (rdna) 1 mg injection (1 source) Antihypoglycemic Agent Start: 06-22-2024 1 mg, intramuscular, As needed, low blood sugar, blood glucose less than 70 mg/dL and unconscious or NPO without IV access., Starting on Thu06/22/24 at 0301, If conscious and not NPO, immediately follow with meal tray or high protein (7Grams) snack if tray not available. If NPO, initiate IV 5% Dextrose/Water at 100 mL/hr and contact prescriber for additional orders. If blood glucose is not greater than 70 mg/dL after initial treatment, repeat treatment. 150 ml glucose 50 mg/ml injection (3 sources) Start: 06-22-2024 15 g, oral, As needed, low blood sugar, blood glucose less than 70 mg/dL, Starting on Thu06/22/24 at 0301, If patient conscious and taking PO. If blood glucose is not greater than 70 mg/dL after initial treatment, repeat treatment. Start: 06-22-2024 25 mL, intrave nous, As needed, low blood sugar, blood glucose less than 70 mg/dL and unconscious or NPO with IV access, Starting on Thu06/22/24 at 0301, Push over 1-3 minutes STAT. If conscious and not NPO, immediately follow with meal tray or high protein (7 grams) snack if tray not available. If NPO, initiate 5% dextrose in water at 100 mL/hr and contact prescriber for additional orders. If blood glucose is not greater than 70 mg/dL after initial treatment, repeat treatment. VESICANT (RED) Warning: HYPERTONIC solution. Start: 06-22-2024 End: 06-23-2024 take 70 mg intravenously every hour 100 mL/hr, intravenous, Continuous PRN, blood glucose less than 70 mg/dL, Starting on Thu06/22/24 at 0301, For 1 day, Use immediately following dextrose 50% or glucagon treatment for patients who are unconscious or NPO. Contact prescriber for additional orders. If blood glucose is not greater than 70 mg/dL after initial treatment, repeat treatment. 1 ml ketorolac tromethamine 30 mg/ml injection (2 sources) Nonsteroidal Anti-inflammatory Drug, Cyclooxygenase Inhibitor Start: 06-22-2024 End: 06-25-2024 take 15 mg intravenously every six hours as needed for pain 15 mg, intravenous, Every 6 hours PRN, moderate pain - pain scale 4-6, Starting on Thu06/22/24 at 0911, For 3 days, Look-alike/sound-alike medication - verify indication for use. Duration of therapy is not to exceed 5 days. Maximum recommended dose + 120mg/24 hours. Start: 06-22-2024 End: 06-22-2024 15 mg, intravenous, Once, On Thu06/22/24 at 0125, For 1 dose, Look-alike/sound-alike medication - verify indication for use. Duration of therapy is not to exceed 5 days. Maximum recommended dose + 120mg/24 hours. lidocaine 0.05 mg/mg medicated patch (3 sources) Antiarrhythmic, Amide Local Anesthetic Start: 06-22-2024 apply 1 dose transdermal route once daily, then apply 1 dose transdermal route every twelve hours lidocaine (LIDODERM) 5 % Place 1 patch on the skin daily. Remove & Discard patch within 12 hours or as directed by MD Oreilly patch 06/22/2024 Active Start: 06-22-2024 apply 1 dose transde rmal route once daily, then apply 1 dose transdermal route every twelve hours lidocaine (LIDODERM) 5 % Place 1 patch on the skin daily. Remove & Discard patch within 12 hours or as directed by MD Oreilly patch 06/22/2024 50 ml magnesium sulfate 40 mg/ml injection (2 sources) Start: 06-22-2024 2,000 mg, intr avenous, at 25 mL/hr, Administer over 120 Minutes, As needed, Magnesium level 1.7 to 1.9 mg/dL, or Ionized Magnesium level 0.45 to 0.5 mmol/L., Starting on Thu06/22/24 at 0301, Recheck magnesium level 4 hours after infusion complete. With each magnesium result continue the replacement orders as needed. Start: 06-22-2024 4,000 mg, intr avenous, at 25 mL/hr, Administer over 240 Minutes, As needed, Magnesium level 1.6 mg/dL or less, or Ionized Magnesium level 0.44 mmol/L or less, Starting on Thu06/22/24 at 0301, Recheck magnesium level 4 hours after infusion complete. With each magnesium result continue the replacement orders as needed. methocarbamol 500 mg oral tablet (1 source) Muscle Relaxant Start: 06-18-2024 End: 06-22-2024 take 1 tablet by mouth in the morning, then take 1 tablet by mouth at bedtime methocarbamoL (ROBAXIN) 500 mg tablet Take 1 tablet (500 mg total) by mouth in the morning and 1 tablet (500 mg total) before bedtime. 20 tablet 06/18/2024 06/22/2024 Discontinued (Stop Taking at Discharge) montelukast 10 mg oral tablet (1 source) Leukotriene Receptor Antagonist End: 06-22-2024 take 1 tablet by mouth once daily montelukast (SINGULAIR) 10 mg tablet Take 1 tablet (10 mg total) by mouth nightly. 06/22/2024 Discontinued (Stop Taking at Discharge) 1 ml morphine sulfate 2 mg/ml injection (2 sources) Opioid Agonist Start: 06-22-2024 take 2 mg intravenously every four hours as needed for pain 2 mg, intravenous, Every 4 hours PRN, severe pain - pain scale 7-10, Starting on Thu06/22/24 at 0911, Look-alike/sound-a like medication - verify indication for use. Start: 06-22-2024 End: 06-22-2024 4 mg, intravenous, Once, On Thu06/22/24 at 0125, For 1 dose, Look-alike/sound-alike medication - verify indication for use. ondansetron 4 mg disintegrating oral tablet (1 source) Serotonin-3 Receptor Antagonist Start: 04-12-2024 End: 06-22-2024 take 1 tablet by mouth every eight hours as needed for nausea ondansetron ODT (ZOFRAN ODT) 4 mg disintegrating tablet Dissolve 1 tablet (4 mg total) on tongue every 8 (eight) hours as needed for nausea for up to 10 doses. 10 tablet 04/12/2024 06/22/2024 Discontinued (Stop Taking at Discharge) pantoprazole 20 mg delayed release oral tablet (1 source) Proton Pump Inhibitor Start: 04-12-2024 End: 06-22-2024 take 1 tablet by mouth in the morning pantoprazole (PROTONIX) 20 mg EC tablet Take 1 tablet (20 mg total) by mouth in the morning. 20 tablet 04/12/2024 06/22/2024 Discontinued (Stop Taking at Discharge) Potassium Chloride (1 source) Start: 06-22-2024 potassium chloride (K-TAB,KLOR-CON) CR tablet 30-50 mEq 125 ml sodium chloride 9 mg/ml prefilled syringe (3 sources) Start: 06-22-2024 3 mL, intravenous, Every 12 hours scheduled, First dose on Thu06/22/24 at 0900 Start: 06-22-2024 3 mL, intraven ous, As needed, line care, before and after each intermittent use, Starting on Thu06/22/24 at 0301 Start: 06-22-2024 End: 06-23-2024 take 20 mL intravenously every hour as needed 20 mL/hr, intravenous, Continuous PRN, to maintain patency of lines, Starting on Thu06/22/24 at 0301, For 1 day sodium phosphate 20 mmol in sodium chloride 0.9 % 250 mL IVPB (1 source) Start: 06-22-2024 sodium phospha te 20 mmol in sodium chloride 0.9 % 250 mL IVPB tiZANidine 4 mg oral tablet (3 sources) Central alpha-2 Adrenergic Agonist Start: 06-22-2024 take 1 tablet by mouth every six hours as needed tiZANidine (ZANAFLEX) 4 mg tablet Take 1 tablet (4 mg total) by mouth every 6 (six) hours as needed for muscle spasms. 30 tablet 06/22/2024 Active Start: 06-22-2024 take 1 tablet by sera th every six hours as needed tiZANidine (ZANAFLEX) 4 mg tablet Take 1 tablet (4 mg total) by mouth every 6 (six) hours as needed for muscle spasms. 30 tablet 06/22/2024 Completed/Discontinued Medications Medication Drug Class(es) Dates Sig (Normalized) Sig (Original) prednisoLONE 3 mg/ml oral solution (3 sources) Corticosteroid Start: 06-22-2024 End: 06-27-2024 take 13.3 mL by mouth in the morning prednisoLONE (ORAPRED) 15 mg/5 mL (3 mg/mL) solution Take 13.3 mL (40 mg total) by mouth in the morning for 5 days. 66.5 mL 06/22/2024 06/27/2024 Problems Active Problems Problem Classification Problem Date Documented Date Episodic/Chronic Abdominal pain (1 source) Abdominal pain Onset: 04-12-2024 Episodic Noninfectious gastroenteritis (1 source) Noninfective gastroenteritis and colitis, unspecified; Translations: [Noninfective gastroenteritis and colitis, unspecified] Onset: 04-14-2024 Episodic Other connective tissue disease (4 sources) Atrophy of muscle of right thigh; Translations: [Muscle wasting and atrophy, not elsewhere classified, right thigh] 06-22-2024 Episodic Other connective tissue disease (3 sources) Muscle atrophy; Translations: [Muscle wasting and atrophy, not elsewhere classified, unspecified site] Onset: 06-22-2024 06-22-2024 Episodic Other connective tissue disease (3 sources) Muscle wasting and atrophy, not elsewhere classified, right thigh; Translations: [Muscle wasting and atrophy, not elsewhere classified, right thigh] Onset: 06-21-2024 Episodic Other connective tissue disease (1 source) Repeated falls; Translations: [Repeated falls] Onset: 06-21-2024 Episodic Other connective tissue disease (1 source) Other symptoms and signs involving the musculoskeletal system; Translations: [Other symptoms and signs involving the musculoskeletal system] Onset: 06-21-2024 Episodic Other connective tissue disease (3 sources) Pain in lower limb Onset: 06-18-2024 Episodic Other nervous system disorders (3 sources) Difficulty walking; Translations: [Difficulty in walking, not elsewhere classified] Onset: 06-22-2024 06-22-2024 Chronic Other non-traumatic joint disorders (1 source) Hip pain Onset: 06-21-2024 Episodic Other non-traumatic joint disorders (1 source) Pain in right hip; Translations: [Pain in right hip] Onset: 06-18-2024 Episodic Spondylosis; intervertebral disc disorders; other back problems (12 sources) Backache; Translations: [Dorsalgia, unspecified] Onset: 06-21-2024 06-22-2024 Episodic Unclassified (1 source) ESOPHAGITIS UNSPEC WITHOUT BLEEDING; Translations: [ESOPHAGITIS UNSPEC WITHOUT BLEEDING] Onset: 09-12-2021 Past or Other Problems Problem Classification Problem Date Documented Da te Episodic/Chronic Gastritis and duodenitis (4 sources) Gastritis, unspecified, without bleeding; Translations: [GASTRITIS UNS WITHOUT BLEEDING] Onset: 09-11-2021 Episodic Mood disorders (2 sources) Mood disorders Onset: 05-10-2021 05-10-2021 Nausea and vomiting (2 sources) Nausea with vomiting, unspecified; Translations: [Vomiting] Onset: 11-23-2023 Episodic Other gastrointestinal disorders (1 source) Diarrhea, unspecified; Translations: [Diarrhea, unspecified] Onset: 11-23-2023 Episodic Other gastrointestinal disorders (1 source) Diarrhea Onset: 11-23-2023 Episodic Results Test Name Value Interpretation Reference Range Facility CREATININEon 06-22-2024 Creatinine [Mass/Vol] 0.72 mg/dL Normal 0.40-1.00 [facility] Comment on above: Result Comment: METH OD TRACEABLE TO IDMS STANDARD Performed By: #### H H, PLTCT, PARTS CLERK #### [facility] ([id number]) [address], [address] [place] [id number] eGFR (CKD-EPI) NON-RACE DEPENDENT >90 Normal >59 [facility] Comment on above: Result Comment: Reported eGFR is based on the CKD-EPI 2020 equation that does not use a race coefficient. Performed By: #### H H, PLTCT, PARTS CLERK #### [facility] ([id number]) [address], [address] [place] [id number] Creatinine includes GFR, ser umon 06-22-2024 Creatinine [Mass/Vol] 0.72 mg/dL 0.40 - 1.00 mg/dL [facility] Comment on above: METHOD TRACEABLE TO IDWI STANDARD eGFR (CKD-EPI)non-race dependent - PINF [facility] Comment on above: Reported eGFR is based on the CKD-EPI 2020 equation that does not use a race coefficient. [facility] HGB AND HCTon 06-22-2024 Hematocrit (Bld) [Volume fraction] 33.3 % Low 35-47 [facility] Comment on above: Performed By: #### H H, PLTCT, PARTS CLERK #### [facility] ([id number]) [address] [facility], [address] [address] Hemoglobin (Bld) [Mass/Vol] 11.3 g/dL Low 11.7-15.5 [facility] Comment on above: Performed By: #### H H, PLTCT, PARTS CLERK #### [facility] ([id number]) [address], [address] [place] [address] Hemoglobin and hematocrit, b loodon 06-22-2024 Hematocrit (Bld) [Volume fraction] 33.3 % Low 35 - 47 % [facility] Hemoglobin (Bld) [Mass/Vol] 11.3 g/dL Low 11.7 - 15.5 g/dL [facility] Interpretation and review of laboratory results Abnormal [facility] MR LUMBAR SPINE WO CONTon MR LUMBAR SPINE WO CONT MR LUMBAR SPINE WO CONT LUMBAR SPINE MRI WITHOUT CONTRAST History: Back pain persistent despite conservative management for greater than 6 weeks. Radiculopathy.Low back pain, cauda equina syndrome suspected; Myelopathy, acute, lumbar spine Comparison: None. Technique: Multiplanar multisequence MR imaging of the lumbar spine was performed without contrast. Findings: Preserved lumbar vertebral body heights. Subtle grade 1 anterolisthesis L5 on S1. Nonacute L5 pars defects, associated secondary degenerative changes and fatty metaplasia. No acute fracture seen. No robust bone marrow edema. Conus terminates at L2, no distal cord signal change. T12-L4:No substantial focal thecal sac or neural foraminal narrowing. L4-L5:Minimal disc bulge. Minimal thecal sac and mild left greater than right neural foraminal stenosis. L5-S1:Subtle grade 1 anterolisthesis, disc bulge. Ligamentum flavum thickening. Mild thecal sac stenosis. Moderate left greater than right neural foraminal stenosis. Paraspinal soft tissues grossly within normal limits. Degenerative changes sacroiliac joints. Small volume pelvic free fluid. Impression: 1. Subtle grade 1 anterolisthesis L5 on S1, posterior wedging morphology of L5. Nonacute L5 pars defects. 2. No high-grade thecal sac or neural frontal stenosis. Finalized by Suhas Kelly MD on 06/22/2024 7:[address] [facility] MR Lumbar spine WO contrasto n 06-22-2024 LUMBAR SPINE MRI WIT HOUT CONTRAST History: Back pain persistent despite conservative management for greater than 6 weeks. Radiculopathy.Low back pain, cauda equina syndrome suspected; Myelopathy, acute, lumbar spine Comparison: None. Technique: Multiplanar multisequence MR imaging of the lumbar spine was performed without contrast. Findings: Preserved lumbar vertebral body heights. Subtle grade 1 anterolisthesis L5 on S1. Nonacute L5 pars defects, associated secondary degenerative changes and fatty metaplasia. No acute fracture seen. No robust bone marrow edema. Conus terminates at L2, no distal cord signal change. T12-L4:No substantial focal thecal sac or neural foraminal narrowing. L4-L5:Minimal disc bulge. Minimal thecal sac and mild left greater than right neural foraminal stenosis. L5-S1:Subtle grade 1 anterolisthesis, disc bulge. Ligamentum flavum thickening. Mild thecal sac stenosis. Moderate left greater than right neural foraminal stenosis. Paraspinal soft tissues grossly within normal limits. Degenerative changes sacroiliac joints. Small volume pelvic free fluid. Impression: 1. Subtle grade 1 anterolisthesis L5 on S1, posterior wedging morphology of L5. Nonacute L5 pars defects. 2. No high-grade thecal sac or neural frontal stenosis. Finalized by Suhas Kelly MD on 06/22/2024 7:18 AM [facility] Suhas Kelly MD - 06/22/2024 LUMBAR SPINE MRI WITHOUT CONTRAST History: Back pain persistent despite conservative management for greater than 6 weeks. Radiculopathy.Low back pain, cauda equina syndrome suspected; Myelopathy, acute, lumbar spine Comparison: None. Technique: Multiplanar multisequence MR imaging of the lumbar spine was performed without contrast. Findings: Preserved lumbar vertebral body heights. Subtle grade 1 anterolisthesis L5 on S1. Nonacute L5 pars defects, associated secondary degenerative changes and fatty metaplasia. No acute fracture seen. No robust bone marrow edema. Conus terminates at L2, no distal cord signal change. T12-L4:No substantial focal thecal sac or neural foraminal narrowing. L4-L5:Minimal disc bulge. Minimal thecal sac and mild left greater than right neural foraminal stenosis. L5-S1:Subtle grade 1 anterolisthesis, disc bulge. Ligamentum flavum thickening. Mild thecal sac stenosis. Moderate left greater than right neural foraminal stenosis. Paraspinal soft tissues grossly within normal limits. Degenerative changes sacroiliac joints. Small volume pelvic free fluid. Impression: 1. Subtle grade 1 anterolisthesis L5 on S1, posterior wedging morphology of L5. Nonacute L5 pars defects. 2. No high-grade thecal sac or neural frontal stenosis. Finalized by Suhas Kelly MD on 06/22/2024 7:18 AM [employer] Radiology Study observation (narrative) [employer] MR Lumbar spine WO contrastO rdered By: Suhas Kelly on 06-22-2024 [employer] game [employer] Work Phone: No Panel [facility]on 06-[facility] PL[facility] COUNT AND MPVon Platelet mean volume (Bld) [Entitic vol] 11.3 fL Normal 7-12 [facility] Comment on above: Performed By: #### H H, PLTCT, PARTS CLERK #### [facility] ([id number]) [address], [address] [place] [address] Platelets (Bld) [#/Vol] 180 10*3/uL Normal 150-450 [facility] Comment on above: Performed By: #### H H, PLTCT, PARTS CLERK #### [facility] ([id number]) [address], [address] [place] [address] Platelet counton 06-22-2024 Platelet mean volume (Bld) [Entitic vol] 11.3 fL 7 - 12 fL [facility] Platelets (Bld) [#/Vol] 180 10*3/uL [facility] CT HIP RT WO CONTon 06-21-20 CT HIP RT WO CONT CT HIP RT WO CONT History: Right hip pain Exam/Technique: Thin axial images of the right hip were obtained. Study was supplemented by sagittal and coronal reconstructed images. Automated exposure control was utilized. Comparison: Comparison is made to a plain film examination dated 06/18/2024 Findings: There is no evidence for an acute osseous abnormality. No significant degenerative changes are seen. No destructive processes are identified. The remainder the visualized osseous structures are intact. No soft tissue abnormalities are identified. IMPRESSION: Normal CT right hip Finalized by Marcell Ralph MD on 06/21/2024 9:59 PM Normal [facility] CT LUMBAR SPINE WO CONTon CT LUMBAR SPINE WO CONT CT LUMBAR SPINE WO CONT HISTORY: A 34-year-old female with the history of the low back pain and pain in the right hip. No history of injury. EXAM/TECHNIQUE: Multidetector spiral CT scan of lumbar spine is performed. Multiplanar reconstruction images are obtained. All CT scans at this facility use dose modulation, iterative reconstruction, and/or weight based dosing when appropriate to reduce radiation dose to as low as reasonably achievable. COMPARISON: None available. FINDINGS: There is no evidence of fracture through the lumbar vertebrae. The posterior elements are intact. Sagittal and coronal images demonstrate normal vertebral heights. There is no evidence of compression fractures or acute bony pathology. Facet joints are intact. Both sacroiliac joints are intact. Intervertebral disc spaces are intact. There is a broad-based disc bulging at L5-S1. No evidence of disc herniation, spinal stenosis or narrowing of the neural foramina. No significant prevertebral or paravertebral soft tissue abnormality is identified. IMPRESSION: * No evidence of fracture, spondylolisthesis or acute bony pathology. * There is a broad-based disc bulging at L5-S1. No evidence of pollo disc herniation or spinal stenosis in the lumbar region. Neural foramina are patent. Finalized by Marco A Burleson MD on 06/21/2024 10:04 PM Normal [facility] XR HIP RT 2-3 VIEWS W OR WO PELVISon 06-18-2024 XR HIP RT 2-3 VIEWS W OR WO PELVIS XR HIP RT 2-3 VIEWS W OR WO PELVIS HISTORY: Right hip pain COMPARISON: None FINDINGS: AP pelvis and AP and frog-leg views of the right hip were obtained. Osseous structures are intact. Normal alignment. No significant degenerative change. No focal soft tissue abnormality. IMPRESSION: * No acute abnormality. Finalized by Yonatan Solorzano MD on 06/18/2024 4:37 AM Normal [facility] XR SPINE LUMBAR 2 OR 3 VWSon 06-18-2024 XR SPINE LUMBAR 2 OR 3 VWS XR SPINE LUMBAR 2 OR 3 VWS HISTORY: Back pain, right lower extremity paresthesias COMPARISON: CT abdomen and pelvis 04/12/2024 FINDINGS: Multiple views of the lumbar spine were obtained. Vertebral body height and alignment is maintained. Loss of normal lordosis is likely positional but can also be seen with muscle spasm. Bilateral L5 pars defects. Otherwise posterior elements are intact. No significant degenerative change. No bony destructive process. No focal soft tissue abnormality. IMPRESSION: * No acute osseous abnormality. Finalized by Yonatan Solorzano MD on 06/18/2024 4:37 AM Normal [facility] GI PANELon 04-14-2024 Gastrointestinal pathogens DNA and [...] SAPOVIRUS Not detected (qualifier value) Normal NDET [facility] Comment on above: Performed By: #### C KIMANI [facility], 3040-3 #### [facility] ([id number]) [address] [place] [address] [place] [address] CBC AND AUTO DIFFon 10-15-20 24 ABSOLUTE BASOPHIL 0.0 X10E9/L Normal 0.0-0.2 [facility] Comment on above: Performed By: #### Jairon HARMAN [facility], 3040-3 #### [facility] ([id number]) [address] [place] [address] [place] [address] ABSOLUTE NEUTROPHIL 9.5 X10E9/L High 1.5-6.[address] [facility] Comment on above: Performed By: #### Jairon HARMAN CMP, 3040-3 #### [facility] ([id number]) [address] [place] [address] 03470 Basophils/100 WBC (Bld) 0.2 % Normal [facility] Comment on above: Performed By: #### Jairon HARMAN CMP, 3040-3 #### [facility] ([id number]) [address] [place] [address] 77154 Eosinophils (Bld) [#/Vol] 0.0 10*3/uL Normal 0.0-0.[address] [facility] Comment on above: Performed By: #### Jairon HARMAN CMP, 3039-08 #### [facility] ([id number]) [address] [place] [address] 53175 Eosinophils/100 WBC (Bld) 0.3 % Normal [facility] Comment on above: Performed By: #### Jairon HARMAN CMP, 3039-08 #### [facility] ([id number]) [address] [place] [address] 68918 Erythrocyte distribution width (RBC) [Ratio] 15.3 % High 11.5-15.[address] [facility] Comment on above: Performed By: #### Jairon HARMAN CMP, 3039-08 #### [facility] ([id number]) [address] [place] [address] 44891 Hematocrit (Bld) [Volume fraction] 38.5 % Normal 35-[address] [facility] Comment on above: Performed By: #### Jairon HARMAN CMP, 3039-08 #### [facility] ([id number]) [address] [place] [address] 65476 Hemoglobin (Bld) [Mass/Vol] 12.8 g/dL Normal 11.7-15.[address] [facility] Comment on above: Performed By: #### Jairon HARMAN CMP, 3039-08 #### [facility] ([id number]) [address] [place] [address] 34706 Lymphocytes (Bld) [#/Vol] 1.1 10*3/uL Normal 1.0-3.[address] [facility] Comment on above: Performed By: #### Jairon HARMAN CMP, 3039-08 #### [facility] ([id number]) [address] [place] [address] 64676 Lymphocytes/100 WBC (Bld) 9.9 % Normal [facility] Comment on above: Performed By: #### Jairon HARMAN CMP, 3039-08 #### [facility] ([id number]) [address] [place] [address] 05302 MCH (RBC) [Entitic mass] 27.7 pg Normal 27-[address] [facility] Comment on above: Performed By: #### Jairon HARMAN CMP, 3039-08 #### [facility] ([id number]) [address] [place] [address] 16433 MCHC (RBC) [Mass/Vol] 33.2 g/dL Normal 32-[address] [facility] Comment on above: Performed By: #### Jairon HARMAN CMP, 3039-08 #### [facility] ([id number]) [address] [place] [address] 47256 MCV (RBC) [Entitic vol] 84 fL Normal 80-[address] [facility] Comment on above: Performed By: #### Jairon HARMAN CMP, 3039-08 #### [facility] ([id number]) [address] [place] [address] 32471 Monocytes (Bld) [#/Vol] 0.7 10*3/uL Normal 0-0.[address] [facility] Comment on above: Performed By: #### Jairon HARMAN CMP, 3039-08 #### [facility] ([id number]) [address] [place] [address] 15284 Monocytes/100 WBC (Bld) 6.2 % Normal [facility] Comment on above: Performed By: #### Jairon HARMAN CMP, 3039-08 #### [facility] ([id number]) [address] [place] [address] 24356 Neutrophils/100 WBC (Bld) 83.4 % Normal [facility] Comment on above: Performed By: #### Jairon HARMAN CMP, 3039-08 #### [facility] ([id number]) [address] [place] [address] 90300 Platelet mean volume (Bld) [Entitic vol] 9.7 fL Normal 7-[address] [facility] Comment on above: Performed By: #### Jairon HARMAN, CMP, 3040-3 #### [facility] ([id number]) [address] [place] [address] 58259 Platelets (Bld) [#/Vol] 177 10*3/uL Normal 150-[address] [facility] Comment on above: Performed By: #### Jairon HARMAN, CMP, 3040-3 #### [facility] ([id number]) [address] [place] [address] 77769 RBC COUNT 4.62 X10E12/L Normal 3.80-5.[address] [facility] Comment on above: Performed By: #### Jairon HARMAN, CMP, 3039-3 #### [facility] ([id number]) [address] [place] [address] 96088 WBC (Bld) [#/Vol] 11.3 10*3/uL High 4.0-11.0 [facility] Comment on above: Performed By: #### Jairon BCA, CMP, 3040-3 #### [facility] ([id number]) [address] [place] [address] 15122 COMPREHENSIVE METABOLIC PANE Bill 04-12-2024 Albumin [Mass/Vol] 4.8 g/dL Normal 3.2-5.3 [facility] Comment on above: Performed By: #### Jairon BCA, CMP, 3040-3 #### [facility] ([id number]) [address] [place] [address] 35311 ALP [Catalytic activity/Vol] 51 U/L Normal 39-[address] [facility] Comment on above: Performed By: #### Jairon BCA, CMP, 0-3 #### [facility] ([id number]) [address] [place] [address] 41790 ALT [Catalytic activity/Vol] 14 U/L Normal 0-[address] [facility] Comment on above: Performed By: #### Jairon HARMAN CMP, 3039-3 #### [facility] ([id number]) [address] [place] [address] 51949 Anion gap [Moles/Vol] 7 mmol/L Normal 5-[address] [facility] Comment on above: Performed By: #### Jairon HARMAN CMP, 3039-3 #### [facility] ([id number]) [address] [place] [address] 02600 AST [Catalytic activity/Vol] 21 U/L Normal 0-[address] [facility] Comment on above: Performed By: #### Jairon HARMAN CMP, 3 #### [facility] ([id number]) [address] [place] [address] 25409 Bilirubin [Mass/Vol] 0.4 mg/dL Normal 0.3-1.[address] [facility] Comment on above: Performed By: #### Jairon HARMAN CMP, 3 #### [facility] ([id number]) [address] [place] [address] 38988 Calcium [Mass/Vol] 9.0 mg/dL Normal 8.5-10.5 [facility] Comment on above: Performed By: #### Jairon HARMAN CMP, 3039-3 #### [facility] ([id number]) [address] [place] [address] [place] [address] Chloride [Moles/Vol] 103 mmol/L Normal 98-[address] [facility] Comment on above: Performed By: #### Jairon HARMAN CMP, 3039-3 #### [facility] ([id number]) [address] [place] [address] 19561 CO2 [Moles/Vol] 24 mmol/L Normal 22-[address] [facility] Comment on above: Performed By: #### C CANDACE HARMAN, 0-3 #### [facility] ([id number]) [address] [place] [address] 84233 Creatinine [Mass/Vol] 0.79 mg/dL Normal 0.40-1.[address] [facility] Comment on above: Result Comment: METH OD TRACEABLE TO IDMS STANDARD Performed By: #### C CANDACE HARMAN, 3 #### [facility] ([id number]) [address] [place] [address] 84633 eGFR (CKD-EPI) NON-RACE DEPENDENT >90 Normal >[address] [facility] Comment on above: Result Comment: Reported eGFR is based on the CKD-EPI 2020 equation that does not use a race coefficient. Performed By: #### C CANDACE HARMAN, 3 #### [facility] ([id number]) [address] [place] [address] 25825 Glucose [Mass/Vol] 108 mg/dL High 65-99 [facility] Comment on above: Performed By: #### C KIMANI [facility], 3039-08 #### [facility] ([id number]) [address] [place] [address] 69888 Potassium [Moles/Vol] 4.0 mmol/L Normal 3.5-5.[address] [facility] Comment on above: Performed By: #### C CANDACE HARMAN, 3 #### [facility] ([id number]) [address] [place] [address] 31431 Protein [Mass/Vol] 7.4 g/dL Normal 6.0-8.0 [facility] Comment on above: Performed By: #### C CANDACE HARMAN, 3039-08 #### [facility] ([id number]) [address] [place] [address] 31198 Sodium [Moles/Vol] 134 mmol/L Normal 134-146 [facility] Comment on above: Performed By: #### C CANDACE HARMAN, 3040-3 #### [facility] ([id number]) [address] [place] [address] Urea nitrogen [Mass/Vol] 13 mg/dL Normal 5-[address] [facility] Comment on above: Performed By: #### C CANDACE HARMAN, 3040-3 #### [facility] ([id number]) [address] [place] [address] ABDOMEN AND PELVIS W CONT on [...] Reyez MD on 04/12/2024 2:35 PM Normal [facility] HCG ( test) Ql (U)o n 04-12-2024 Beta HCG ( test) Ql (U) Negative Normal NEG [facility] Comment on above: Performed By: #### 2 106-3 #### [facility] ([id number]) [address] [place] [address] 31709 LIPASEon 04-12-2024 Lipase [Catalytic activity/Vol] 34 U/L Normal 17-[address] [facility] Comment on above: Performed By: #### C CANDACE HARMAN, 3040-3 #### [facility] ([id number]) [address] [place] [address], [place] [address] URN MACROSCOPIC NURon 2023 BILIRUBIN ROSA MARIA Negative Normal NEG [facility] Comment on above: Performed By: #### N UM #### [facility] ([id number]) [address] [place] [address] [place] [address] BLOOD/HGB ROSA MARIA MODERATE Abnormal NEG [facility] Comment on above: Performed By: #### N UM #### [facility] ([id number]) [address] [place] [address], [place] [address] GLUCOSE ROSA MARIA Negative Normal NEG [facility] Comment on above: Performed By: #### N UM #### [facility] ([id number]) [address] [place] [address] [place] [address] KETONES ROSA MARIA Negative Normal NEG [facility] Comment on above: Performed By: #### N UM #### [facility] ([id number]) [address] [place] [address], [place] [address] LEUKOCYTE ESTERASE ROSA MARIA Negative Normal NEG [facility] Comment on above: Performed By: #### N UM #### [facility] ([id number]) [address] [place] [address] [place] [address] NITRITE ROSA MARIA Negative Normal NEG [facility] Comment on above: Performed By: #### N UM #### [facility] ([id number]) [address] [place] [address] [place] [address] PH ROSA MARIA 5.5 Normal 5.0-8.[address] [facility] Comment on above: Performed By: #### N UM #### [facility] ([id number]) [address] [place] [address], [place] [address] PROTEIN ROSA MARIA Negative Normal NEG [facility] Comment on above: Performed By: #### N UM #### [facility] ([id number]) [address] [place] [address] 31624 SPECIFIC GRAVITY ROSA MARIA 1.025 Normal 1.003-1.[address] [facility] Comment on above: Performed By: #### N UM #### [facility] ([id number]) [address] [place] [address] 05293 UROBILINOGEN ROSA MARIA 0.2 eu/dL Normal <1.1 [facility] Comment on above: Performed By: #### N UM #### [facility] ([id number]) [address] [place] [address] 73218 CBC AND AUTO DIFFon 11-23-19 24 ABSOLUTE BASOPHIL 0.0 X10E9/L Normal 0.0-0.2 [facility] Comment on above: Performed By: #### C KIMANI CMP, 0-3 #### [facility] ([id number]) [address] [place] [address] 08457 ABSOLUTE NEUTROPHIL 4.3 X10E9/L Normal 1.5-6.[address] [facility] Comment on above: Performed By: #### Jairon HARMAN CMP, 3039-3 #### [facility] ([id number]) [address] [place] [address] 11185 Basophils/100 WBC (Bld) 0.7 % Normal [facility] Comment on above: Performed By: #### Jairon HARMAN CMP, 3039-3 #### [facility] ([id number]) [address] [place] [address] 04749 Eosinophils (Bld) [#/Vol] 0.1 10*3/uL Normal 0.0-0.[address] [facility] Comment on above: Performed By: #### Jairon HARMAN CMP, 0-3 #### [facility] ([id number]) [address] [place] [address] 38403 Eosinophils/100 WBC (Bld) 1.3 % Normal [facility] Comment on above: Performed By: #### Jairon HARMAN CMP, 3043 #### [facility] ([id number]) [address] [place] [address] 64282 Erythrocyte distribution width (RBC) [Ratio] 14.1 % Normal 11.5-15.[address] [facility] Comment on above: Performed By: #### Jairon HARMAN CMP, 3 #### [facility] ([id number]) [address] [place] [address] 10297 Hematocrit (Bld) [Volume fraction] 35.1 % Normal 35-[address] [facility] Comment on above: Performed By: #### Jairon HARMAN CMP, 3 #### [facility] ([id number]) [address] [place] [address] 17231 Hemoglobin (Bld) [Mass/Vol] 12.4 g/dL Normal 11.7-15.[address] [facility] Comment on above: Performed By: #### Jairon HARMAN CMP, 3 #### [facility] ([id number]) [address] [place] [address] 46219 Lymphocytes (Bld) [#/Vol] 1.1 10*3/uL Normal 1.0-3.[address] [facility] Comment on above: Performed By: #### Jairon HARMAN CMP, 3 #### [facility] ([id number]) [address] [place] [address] 40343 Lymphocytes/100 WBC (Bld) 18.5 % Normal [facility] Comment on above: Performed By: #### Jairon HARMAN CMP, 3 #### [facility] ([id number]) [address] [place] [address] 04898 MCH (RBC) [Entitic mass] 29.7 pg Normal 27-[address] [facility] Comment on above: Performed By: #### C BCA, CMP, 3039-3 #### [facility] ([id number]) [address] [place] [address] 65153 MCHC (RBC) [Mass/Vol] 35.3 g/dL Normal 32-[address] [facility] Comment on above: Performed By: #### C KIMANI, CMP, 3039-3 #### [facility] ([id number]) [address] [place] [address] 86383 MCV (RBC) [Entitic vol] 84 fL Normal 80-[address] [facility] Comment on above: Performed By: #### Jairon HARMAN, CMP, 3 #### [facility] ([id number]) [address] [place] [address] 28552 Monocytes (Bld) [#/Vol] 0.6 10*3/uL Normal 0-0.[address] [facility] Comment on above: Performed By: #### Jairon HARMAN, CMP, 3 #### [facility] ([id number]) [address] [place] [address] 29531 Monocytes/100 WBC (Bld) 10.3 % Normal [facility] Comment on above: Performed By: #### Jairon HARMAN, CMP, 3039-3 #### [facility] ([id number]) [address] [place] [address] 05922 Neutrophils/100 WBC (Bld) 69.2 % Normal [facility] Comment on above: Performed By: #### Jairon HARMAN, CMP, 3039-3 #### [facility] ([id number]) [address] [place] [address] 28673 Platelet mean volume (Bld) [Entitic vol] 9.8 fL Normal 7-[address] [facility] Comment on above: Performed By: #### Jairon BCA, CMP, 3039-3 #### [facility] ([id number]) [address] [place] [address] 52207 Platelets (Bld) [#/Vol] 160 10*3/uL Normal 150-[address] [facility] Comment on above: Performed By: #### Jairon HARMAN CMP, 3040-3 #### [facility] ([id number]) [address] [place] [address] 80531 RBC COUNT 4.17 X10E12/L Normal 3.80-5.[address] [facility] Comment on above: Performed By: #### Jairon HARMAN, CMP, 3039-3 #### [facility] ([id number]) [address] [place] [address] 64577 WBC (Bld) [#/Vol] 6.2 10*3/uL Normal 4.0-11.0 [facility] Comment on above: Performed By: #### Jairon HARMAN CMP, 3039-3 #### [facility] ([id number]) [address] [place] [address] 92977 COMPREHENSIVE METABOLIC PANE [facility] 11-23-2023 Albumin [Mass/Vol] 4.2 g/dL Normal 3.2-5.3 [facility] Comment on above: Performed By: #### Jairon HARMAN, CMP, 3039-3 #### [facility] ([id number]) [address] [place] [address] 91778 ALP [Catalytic activity/Vol] 50 U/L Normal 39-[address] [facility] Comment on above: Performed By: #### Jairon BCA, CMP, 0-3 #### [facility] ([id number]) [address] [place] [address] 04588 ALT [Catalytic activity/Vol] 18 U/L Normal 0-[address] [facility] Comment on above: Performed By: #### Jairon BCA, CMP, 0-3 #### [facility] ([id number]) [address] [place] [address] 38762 Anion gap [Moles/Vol] 5 mmol/L Normal 5-[address] [facility] Comment on above: Performed By: #### C KIMANI, CMP, 3039-3 #### [facility] ([id number]) [address] [place] [address] 21542 AST [Catalytic activity/Vol] 20 U/L Normal 0-[address] [facility] Comment on above: Performed By: #### C KIMANI CMP, 3039-3 #### [facility] ([id number]) [address] [place] [address] 23728 Bilirubin [Mass/Vol] 0.2 mg/dL Low 0.3-1.[address] [facility] Comment on above: Performed By: #### C KIMANI CMP, 3039-3 #### [facility] ([id number]) [address] [place] [address] 63506 Calcium [Mass/Vol] 8.8 mg/dL Normal 8.5-10.5 [facility] Comment on above: Performed By: #### C KIMANI, CMP, 3039-3 #### [facility] ([id number]) [address] [place] [address] 76332 Chloride [Moles/Vol] 104 mmol/L Normal 98-[address] [facility] Comment on above: Performed By: #### C BCA, CMP, 3039-3 #### [facility] ([id number]) [address] [place] [address] 17904 CO2 [Moles/Vol] 25 mmol/L Normal 22-[address] [facility] Comment on above: Performed By: #### C BCA, CMP, 3039-3 #### [facility] ([id number]) [address] [place] [address] 51235 Creatinine [Mass/Vol] 0.63 mg/dL Normal 0.40-1.[address] [facility] Comment on above: Result Comment: METH OD TRACEABLE TO IDMS STANDARD Performed By: #### C CANDACE HARMAN, 3039-3 #### [facility] ([id number]) [address] [place] [address] 00146 eGFR (CKD-EPI) NON-RACE DEPENDENT >90 Normal >[address] [facility] Comment on above: Result Comment: Reported eGFR is based on the CKD-EPI 2020 equation that does not use a race coefficient. Performed By: #### Jairon HARMAN CMP, 3039-3 #### [facility] ([id number]) [address] [place] [address] 74978 Glucose [Mass/Vol] 116 mg/dL High 65-99 [facility] Comment on above: Performed By: #### Jairon HARMAN [facility], 3 #### [facility] ([id number]) [address] [place] [address] 21681 Potassium [Moles/Vol] 3.8 mmol/L Normal 3.5-5.[address] [facility] Comment on above: Performed By: #### Jairon HARMAN [facility], 3039-08 #### [facility] ([id number]) [address] [place] [address] 82545 Protein [Mass/Vol] 6.7 g/dL Normal 6.0-8.0 [facility] Comment on above: Performed By: #### Jairon HARMAN CMP, 3 #### [facility] ([id number]) [address] [place] [address] 90720 Sodium [Moles/Vol] 134 mmol/L Normal 134-146 [facility] Comment on above: Performed By: #### Jairon HARMAN CMP, 3039-08 #### [facility] ([id number]) [address] [place] [address] 11784 Urea nitrogen [Mass/Vol] 10 mg/dL Normal 5-[address] [facility] Comment on above: Performed By: #### Jairon HARMAN CMP, 3039-3 #### [facility] ([id number]) [address] [place] [address] [place] [address] HCG ( test) Ql (U)o n 11-23-2023 Beta HCG ( test) Ql (U) Negative Normal NEG [facility] Comment on above: Performed By: #### 2 106-3 #### [facility] ([id number]) [address] [place] [address] 95282 LIPASEon 11-23-2023 Lipase [Catalytic activity/Vol] 49 U/L High 17-[address] [facility] Comment on above: Performed By: #### C BCA, CMP, 3040-3 #### [facility] ([id number]) [address] [place] [address] 88185 URN MACROSCOPIC NURon 2023 BILIRUBIN ROSA MARIA Negative Normal NEG [facility] Comment on above: Performed By: #### N UM #### [facility] ([id number]) [address] [place] [address] [place] [address] BLOOD/HGB ROSA MARIA Negative Normal NEG [facility] Comment on above: Performed By: #### N UM #### [facility] ([id number]) [address] [place] [address] [place] [address] GLUCOSE ROSA MARIA Negative Normal NEG [facility] Comment on above: Performed By: #### N UM #### [facility] ([id number]) [address] [place] [address] [place] [address] KETONES ROSA MARIA Negative Normal NEG [facility] Comment on above: Performed By: #### N UM #### [facility] ([id number]) [address] [place] [address] [place] [address] LEUKOCYTE ESTERASE ROSA MARIA Negative Normal NEG [facility] Comment on above: Performed By: #### N UM #### [facility] ([id number]) [address] [place] [address] [place] [address] NITRITE ROSA MARIA Negative Normal NEG [facility] Comment on above: Performed By: #### N UM #### [facility] ([id number]) [address] [place] [address]92 PH ROSA MARIA 7.0 Normal 5.0-8.[address] [facility] Comment on above: Performed By: #### N UM #### [facility] ([id number]) [address] [place] [address]825 PROTEIN ROSA MARIA Negative Normal NEG [facility] Comment on above: Performed By: #### N UM #### [facility] ([id number]) [address] [place] [address] 95453 SPECIFIC GRAVITY ROSA MARIA 1.010 Normal 1.003-1.[address] [facility] Comment on above: Performed By: #### N UM #### [facility] ([id number]) [address] [place] [address] 31639 UROBILINOGEN ROSA MARIA 0.2 eu/dL Normal <1.1 [facility] Comment on above: Performed By: #### N UM #### [facility] ([id number]) [address] [place] [address] 16167 H PYLORI ANTIBODY IGGon 06-30 H. PYLORI IGG ABS 0.46 Index Value Normal 0.00-0.79 [facility] Comment on above: Result Comment: Nega tive <0.80 Equivocal 0.80 - 0.89 Positive >0.89 Performed By: #### H PYLLC #### [facility] [address] [place] [address] Dr. Donna Cornejo AMYLASEon 07-21-2022 Amylase [Catalytic activity/Vol] 83 U/L Normal 25-115 [facility] Comment on above: Performed By: #### A MY, CMP, LIPA, LIPID, T7, TSH #### [facility] [address] [address] [address] Donna Cornejo CBC AUTO DIFFon 07-21-2022 BASO # 0.0 103/ul Normal 0.0-0.1 [facility] Comment on above: Performed By: #### C BC #### [facility] [address] [place] [address] Dr. Donna Cornejo Basophils/100 WBC (Bld) 0.5 % Normal 0.2-2.0 [facility] Comment on above: Performed By: #### C BC #### [facility] [address] [place] [address] Dr. Donan Cronejo EO # 0.1 103/ul Normal 0.0-0.7 [facility] Comment on above: Performed By: #### C BC #### [facility] [address] [place] [address] Dr. Donna Cornejo Eosinophils/100 WBC (Bld) 1.7 % Normal 0.9-7.0 [facility] Comment on above: Performed By: #### C BC #### [facility] [address] [place] [address] Dr. Donna Cornejo Erythrocyte distribution width (RBC) [Ratio] 13.4 % Normal 11.0-15.0 [facility] Comment on above: Performed By: #### C BC #### [facility] [address] [place] [address] Dr. Donna Cornejo Hematocrit (Bld) [Volume fraction] 37.4 % Normal 36.0-48.0 [facility] Comment on above: Performed By: #### C BC #### [facility] [address] [place] [address] Dr. Donna Cornejo Hemoglobin (Bld) [Mass/Vol] 13.1 g/dL Normal 12.0-16.0 [facility] Comment on above: Performed By: #### C BC #### [facility] [address] [place] [address] Dr. Donna Cornejo IG # 0.01 10e3/ul Normal 0.00-0.03 [facility] Comment on above: Performed By: #### C BC #### [facility] [address] [place] [address] Dr. Donna Cornejo IG % 0.2 % Normal 0.0-0.5 [facility] Comment on above: Performed By: #### C BC #### [facility] [address] [place] [address] Dr. Donna Cornejo LYMPH # 2.5 103/ul Normal 1.2-3.8 [facility] Comment on above: Performed By: #### C BC #### [facility] [address] [place] [address] Dr. Donna Cornejo Lymphocytes/100 WBC (Bld) 41.8 % Normal 20.5-60.0 [facility] Comment on above: Performed By: #### C BC #### [facility] [address] [place] [address] Dr. Donna Cornejo MANUAL DIFF REQ NO Normal [facility] Comment on above: Performed By: #### C BC #### [facility] [address] [place] [address] Dr. Donna Cornejo MCH (RBC) [Entitic mass] 28.0 pg Normal 26.7-34.0 [facility] Comment on above: Performed By: #### C BC #### [facility] [address] [place] [address] Dr. Donna Cornejo MCHC (RBC) [Mass/Vol] 35.0 g/dL Normal 29.9-35.2 [facility] Comment on above: Performed By: #### C BC #### [facility] [address] [place] [address] Dr. Donna Cornejo MCV (RBC) [Entitic vol] 79.9 fL Critically low 81.0-99.0 [facility] Comment on above: Performed By: #### C BC #### [facility] [address] [place] [address] Dr. Donna Cornejo MONO # 0.5 103/ul Normal 0.3-0.8 [facility] Comment on above: Performed By: #### C BC #### [facility] [address] [place] [address] Dr. Donna Cornejo Monocytes/100 WBC (Bld) 8.5 % Normal 1.7-12.0 [facility] Comment on above: Performed By: #### C BC #### [facility] [address] [place] [address] Dr. Donna Cornejo NEUT # 2.8 103/ul Normal 1.4-6.5 [facility] Comment on above: Performed By: #### C BC #### [facility] [address] [place] [address] Dr. Donna Cornejo Neutrophils/100 WBC (Bld) 47.3 % Normal 43.0-75.0 [facility] Comment on above: Performed By: #### C BC #### [facility] [address] [place] [address] Dr. Donna Cornejo Platelet mean volume (Bld) [Entitic vol] 11.1 fL Normal 9.5-13.5 [facility] Comment on above: Performed By: #### C BC #### [facility] [address] [place] [address] Dr. Donna Cornejo PLT 187 103/ul Normal 150-450 [facility] Comment on above: Performed By: #### C BC #### [facility] [address] [place] [address] Dr. Donna Cornejo RBC 4.68 106/ul Normal 4.20-5.40 [facility] Comment on above: Performed By: #### C BC #### [facility] [address] [place] [address] Dr. Donna Cornejo WBC 6.0 103/ul Normal 4.0-11.0 [facility] Comment on above: Performed By: #### C BC #### [facility] [address] [place] [address] Dr. Donna Cornejo FREE THYROXINE INDEX T7on FTI 3.17 Normal 1.30-4.50 [facility] Comment on above: Performed By: #### A MY, CMP, LIPA, LIPID, T7, TSH #### [facility] [address] [place] [address] Dr. Donna Cornejo T3U 36.0 % Normal 30.0-39.0 [facility] Comment on above: Performed By: #### A MY, CMP, LIPA, LIPID, T7, TSH #### [facility] [address] [place] [address] Dr. Donna Cornejo T4 [Mass/Vol] 8.80 ug/dL Normal 4.80-13.90 [facility] Comment on above: Performed By: #### A MY, CMP, LIPA, LIPID, T7, TSH #### [facility] [address] [address] [address] Donna Cornejo GLYCOHEMOGLOBIN A1Con 2022 ADA RECOMMENDATION SEE BELOW Normal [facility] Comment on above: Result Comment: ADA RECOMMENDED LIMIT 4.0 - 6.0 ADA THERAPEUTIC TARGET < 7.0 ACTION SUGGESTED > 7.0 Performed By: #### A 1C #### [facility] [address] [place] [address] Dr. Donna Cornejo Glucose [Mass/Vol] 114 mg/dL Normal [facility] Comment on above: Performed By: #### A 1C #### [facility] [address] [place] [address] Dr. Donna Cornejo HbA1c (Bld) [Mass fraction] 5.6 % Normal 4.5-6.2 [facility] Comment on above: Performed By: #### A 1C #### [facility] [address] [place] [address] Dr. Donna Cornejo IRONon 07-21-2022 Iron [Mass/Vol] 55.0 ug/dL Normal 50.0-170.0 [facility] Comment on above: Performed By: #### I JENNA #### [facility] [address] [place] [address] Dr. Donna Cornejo LIPASEon 07-21-2022 Lipase [Catalytic activity/Vol] 181.0 U/L Normal 73.0-393.0 [facility] Comment on above: Performed By: #### A MY, CMP, LIPA, LIPID, T7, TSH #### [facility] [address] [place] [address] Dr. Donna Cornejo LIPID PROFILEon 07-21-2022 CHOL-HDL RATIO NORM SEE BELOW Normal [facility] Comment on above: Result Comment: 3.3 - 4.4 LOW RISK 4.4 - 7.1 AVERAGE RISK 7.1 - 11.0 MODERATE RISK >11.0 HIGH RISK Performed By: #### A MY, CMP, LIPA, LIPID, T7, TSH #### [facility] [address] [address] [address] Donna Cornejo Cholesterol [Mass/Vol] 138 mg/dL Normal <=200 [facility] Comment on above: Performed By: #### A MY, CMP, LIPA, LIPID, T7, TSH #### [facility] [address] [address] [address] Donna Cornejo Cholesterol in HDL [Mass/Vol] 53 mg/dL Normal 40-60 [facility] Comment on above: Performed By: #### A MY, CMP, LIPA, LIPID, T7, TSH #### [facility] [address] [address] [address] Donna Cornejo Cholesterol in LDL [Mass/Vol] 73.0 mg/dL Normal [facility] Comment on above: Performed By: #### A MY, CMP, LIPA, LIPID, T7, TSH #### [facility] [address] [place] [address] Dr. Donna Cornejo Cholesterol.total/ Cholesterol in HDL [Mass ratio] 2.6 {ratio} Normal [facility] Comment on above: Performed By: #### A MY, CMP, LIPA, LIPID, T7, TSH #### [facility] [address] [address] [address] Donna Cornejo HDL NORMAL > or = 60 mg/dl - LO W CARDIOVASCULAR RISK <40 mg/dl - HIGH CARDIOVASCULAR RISK Normal [facility] Comment on above: Performed By: #### A MY, CMP, LIPA, LIPID, T7, TSH #### [facility] [address] [place] [address] Dr. Donna Cornejo LDL CALC NORMAL SEE BELOW Normal [facility] Comment on above: Result Comment: <100 mg/dl OPTIMAL 100 - 129 mg/dl NEAR OR ABOVE OPTIMAL 130 - 159 mg/dl BORDERLINE HIGH 160 - 189 mg/dl HIGH >190 mg/dl VERY HIGH Performed By: #### A MY, CMP, LIPA, LIPID, T7, TSH #### [facility] [address] [address] [address] Donna Cornejo Triglyceride [Mass/Vol] 60 mg/dL Normal <=150 [facility] Comment on above: Performed By: #### A MY, CMP, LIPA, LIPID, T7, TSH #### [facility] [address] [address] [address] Donna Cornejo VLDL CALC 12.0 mg/dL Normal [facility] Comment on above: Performed By: #### A MY, CMP, LIPA, LIPID, T7, TSH #### [facility] [address] [place] [address] Dr. Donna Cornejo PROF 14(COMP METB)on 023 Albumin [Mass/Vol] 4.2 g/dL Normal 3.4-5.0 [facility] Comment on above: Performed By: #### A MY, CMP, LIPA, LIPID, T7, TSH #### [facility] [address] [place] [address] Dr. Donna Cornejo Albumin/Globulin [Mass ratio] 1.4 {ratio} Normal [facility] Comment on above: Performed By: #### A MY, CMP, LIPA, LIPID, T7, TSH #### [facility] [address] [address] [address] Donna Cornejo ALP [Catalytic activity/Vol] 57 U/L Normal 46-116 [facility] Comment on above: Performed By: #### A MY, CMP, LIPA, LIPID, T7, TSH #### [facility] [address] [address] [address] Donna Cornejo ALT [Catalytic activity/Vol] 16 U/L Normal 14-59 [facility] Comment on above: Performed By: #### A MY, CMP, LIPA, LIPID, T7, TSH #### [facility] [address] [address] [address] Donna Cornejo Anion gap [Moles/Vol] 15.5 mmol/L Normal [facility] Comment on above: Performed By: #### A MY, CMP, LIPA, LIPID, T7, TSH #### [facility] [address] [address] [address] Donna Cornejo AST [Catalytic activity/Vol] 17 U/L Normal 15-37 [facility] Comment on above: Performed By: #### A MY, CMP, LIPA, LIPID, T7, TSH #### [facility] [address] [address] [address] Donna Cornejo Bilirubin [Mass/Vol] 0.3 mg/dL Normal 0.2-1.0 [facility] Comment on above: Performed By: #### A MY, CMP, LIPA, LIPID, T7, TSH #### [facility] [address] [place] [address] Dr. Donna Cornejo Calcium [Mass/Vol] 9.5 mg/dL Normal 8.5-10.1 [facility] Comment on above: Performed By: #### A MY, CMP, LIPA, LIPID, T7, TSH #### [facility] [address] [address] [address] Donna Cornejo Chloride [Moles/Vol] 102 mmol/L Normal 98-107 [facility] Comment on above: Performed By: #### A MY, CMP, LIPA, LIPID, T7, TSH #### [facility] [address] [place] [address] Dr. Donna Cornejo CO2 [Moles/Vol] 24.7 mmol/L Normal 21.0-32.0 [facility] Comment on above: Performed By: #### A MY, CMP, LIPA, LIPID, T7, TSH #### [facility] [address] [address] [address] Donna Cornejo Creatinine [Mass/Vol] 0.76 mg/dL Normal 0.55-1.02 [facility] Comment on above: Performed By: #### A MY, CMP, LIPA, LIPID, T7, TSH #### [facility] [address] [address] [address] Donna Cornejo EGFR-AF LIBYAN >60 Normal >=60 [facility] Comment on above: Performed By: #### A MY, CMP, LIPA, LIPID, T7, TSH #### [facility] [address] [address] [address] Dnona Cornejo EGFR-NON AF LIBYAN >60 Normal >=60 [facility] Comment on above: Performed By: #### A MY, CMP, LIPA, LIPID, T7, TSH #### [facility] [address] [address] [address] Donna Cornejo Globulin (S) [Mass/Vol] 3.0 g/dL Normal [facility] Comment on above: Performed By: #### A MY, CMP, LIPA, LIPID, T7, TSH #### [facility] [address] [place] [address] Dr. Donna Cornejo Glucose [Mass/Vol] 109 mg/dL Critically high 74-106 [facility] Comment on above: Performed By: #### A MY, CMP, LIPA, LIPID, T7, TSH #### [facility] [address] [place] [address] Dr. Donna Cornejo Potassium [Moles/Vol] 4.2 mmol/L Normal 3.5-5.1 [facility] Comment on above: Performed By: #### A MY, CMP, LIPA, LIPID, T7, TSH #### [facility] [address] [address] [address] Donna Cornejo Protein [Mass/Vol] 7.2 g/dL Normal 6.4-8.2 [facility] Comment on above: Performed By: #### A MY, CMP, LIPA, LIPID, T7, TSH #### [facility] [address] [place] [address] Dr. Donna Cornejo Sodium [Moles/Vol] 138 mmol/L Normal 136-145 [facility] Comment on above: Performed By: #### A MY, CMP, LIPA, LIPID, T7, TSH #### [facility] [address] [place] [address] Dr. Donna Cornejo Urea nitrogen [Mass/Vol] 11.0 mg/dL Normal 7.0-18.0 [facility] Comment on above: Performed By: #### A MY, CMP, LIPA, LIPID, T7, TSH #### [facility] [address] [address] [address] Donna Cornejo Urea nitrogen/Creatinin e [Mass ratio] 14.5 mg/mg Normal [facility] Comment on above: Performed By: #### A MY, CMP, LIPA, LIPID, T7, TSH #### [facility] [address] [address] [address] Donna Cornejo TSHon 07-21-2022 TSH 1.608 uIU/mL Normal 0.358-3.740 [facility] Comment on above: Performed By: #### A MY, CMP, LIPA, LIPID, T7, TSH #### [facility] [address] [address] [address] Donna Cornejo General Surgery Office/Clini c [...] low FODMAP diet; may need to see case picker about possible food allergies; call with problems/questions. [...] Inhalation, BID triamcinolone Top 0.1% Crm, 1 kaley, Topical, BID Allergies acetaminophen-hydrocodone (Nausea and vomiting) [...] inactivated - Not Given Patient Refuses Normal [facility] Comment on above: Result Comment: Elec tronically Signed By: POPPY VALDEZ, Fred Liriano\.br\Date and Time Signed: 08/29/21 16:16 EST Ambulatory Visit Summaryon 0 08-28-2021 Ambulatory Visit Summary DOUG GOMEZ :1990 Visit Date:08/28/2021 Ambulatory Visit Instructions Your Care Team Attending Physician - POPPY VALDEZ, Fred Liriano Primary Care Physician - Feng Greenberg MD [...] Postprandial abdominal bloating Seasonal allergic rhinitis Normal [facility] Pathology Noteon 08-25-2021 Pathology Note [id number]#[id number]:127 Normal [facility] Operative Reporton Operative Report [id number]#[id number]:127 Normal [facility] Consent for Procedure/Surger yon 08-07-2021 Consent for Procedure/Surgery [id number]#[id number]:127 Normal [facility] Ambulatory Visit Summaryon 0 08-06-2021 Ambulatory Visit Summary DOUG GOMEZ :1990 Visit Date:08/06/2021 Ambulatory Visit Instructions Your Care Team Attending Physician - POPPY VALDEZ, Fred Liriano Primary Care Physician - Feng Greenberg MD Referring Physician - Feng Greenberg MD This [...] disc disease Migraine Seasonal allergic rhinitis Normal [facility] Physician Referralon 022 Physician Referral [id number]#[id number]:127 Normal [facility] Vital Signs Date Time Vital Sign Value Performing Clinician Faci lity 06-27-2024 14:53-0500 Body mass index (BMI) [Ratio] 20.14 kg/m2 Renea Phipps MD Work Phone: [facility] 06-27-2024 14:53-0500 Body weight 54.88 kg Renea Phipps MD Work Phone: [facility] 06-27-2024 14:53-0500 Diastolic blood pressure 78 mm[Hg] Renea Phipps MD Work Phone: [facility] 06-27-2024 14:53-0500 Heart rate 87 /min Renea Phipps MD Work Phone: [facility] 06-27-2024 14:53-0500 Systolic blood pressure 126 mm[Hg] Renea Phipps MD Work Phone: [facility] 06-22-2024 11:43-0500 Body temperature 98.1 [degF] Delfino Thomas DO Work Phone: [facility] [employer] [facility] 06-22-2024 11:43-0500 Diastolic blood pressure 64 mm[Hg] [facility] 06-22-2024 11:43-0500 Heart rate 75 /min [facility]ino [facility] 06-22-2024 11:43-0500 Respiratory rate 18 /min Delfino Thomas DO Work Phone: [facility] [employer] 06-22-2024 11:43-0500 SaO2% (BldA) [Mass fraction] 98 % Delfino Thomas DO [facility] 06-22-2024 11:43-0500 Systolic blood pressure 109 mm[Hg] Delfino Thomas DO Work Phone: [facility] [employer] 06-22-2024 04:13-0500 Body height 165.1 cm Delfino Thomas DO Work Phone: [facility] [employer] 06-22-2024 04:13-0500 Body mass index (BMI) [Ratio] 19.64 kg/m2 Delfino Thomas DO Work Phone: [facility] [employer] 06-22-2024 04:13-0500 Body weight 53.52 kg Delfino Thomas DO Work Phone: [facility] Encounters Encounter Date Encounter Type Care Provider Facility Start: 06-27-2024 End: 06-27-2024 Office outpatient new 45 minutes Renea Phipps MD Work Phone: [facility] Comment on above: Back pain; Atrophy of muscle of right thigh Start: 06-27-2024 End: 06-27-2024 [facility] Start: 06-22-2024 End: 06-22-2024 ambulatory [facility] Start: 06-21-2024 End: 06-22-2024 Emergency department patient visit Yunior Thomas MD Work Phone: [facility] Comment on above: Back pain (Primary D x); Atrophy of muscle of right thigh Start: 06-18-2024 End: 06-18-2024 Emergency department patient visit GENOA Luis [facility] Start: 04-14-2024 End: 04-14-2024 ambulatory LEONIDAS JUDD [facility] Start: 04-12-2024 End: 04-12-2024 Emergency department patient visit FENG GREENBERG [facility] Start: 11-23-2023 End: 11-23-2023 Emergency department patient visit FENG GREENBERG [facility] Start: 07-23-2022 Encounter for genera l adult medical examination without abnormal findings DR FENG GREENBERG . [facility] Start: 07-21-2022 End: 07-22-[address] FENG GREENBERG . Facility: Start: 07-21-2022 End: 07-22-2022 Encounter for general adult medical examination without abnormal findings DR FENG GREENBERG . Facility: Start: 09-11-2021 End: 09-12-[address] FENG GREENBERG . Facility: Procedures Date Procedure Procedure Detail Performing Clinician Start: 06-22-2024 Mri spinal canal lum bar w/o contrast material Pj Daviskathryn DO Work Phone: Start: 06-22-2024 Creatinine blood Xavier Sarabia DO Work Phone: Plan of Treatment Date Care Activity Detail Author Start: 12-18-2025 DTaP,Tdap and Td Vaccines (9 - Td or Tdap) DTaP,Tdap and Td Vaccines (9 - Td or Tdap) [facility] Start: 06-27-2025 Adult BMI Screening Adult BMI Screen ing [facility] Start: 06-27-2025 Tobacco Screening Tobacco Screening [facility] Start: 07-14-2024 End: 07-14-2024 Patient encounter procedure 07/14/2024 2:10 PM EST Office Visit [facility] [place] [place] [address] Jose Kim MD [address], [address] [address] [facility] Start: 07-07-2024 End: 07-07-2024 Patient encounter procedure 07/07/2024 3:30 PM EST Appointment [facility] [address] [place] [id number] Delfino Thomas, DO [address] [address] [facility] Start: 07-05-2024 End: 07-05-2024 Patient encounter procedure 07/05/2024 10:45 AM EST Appointment [facility] [address] [place] [id number] [facility] Start: 06-22-2024 End: 06-22-2025 US.doppler Lower extremity artery - bilateral Vas art duplex lwr bilateral Vascular Ultrasound Routine Back pain Atrophy of muscle of right thigh Expected: 06/22/2024, Expires: 06/22/2025 [employer] Work Phone: Comment on above: Expected: 06/22/2024 , Expires: 06/22/2025 Start: 02-28-2024 Influenza vaccination Influenza Vacc ine [facility] Start: 01-22-2012 Screening for malign ant neoplasm of cervix Pap Smear [facility] Start: 2003 Depression Screening Depression Scre ening [facility] Oxygen Therapy - Maintain SpO2: 90%; *DEAN OF EDUCATION Guidelines for O2: Yes; Document: \[email or web address]\epi c\EPIC_Reference\Orders\ Respiratory Care Guidelines\CPG Oxygen 2022.pdf Oxygen Therapy - Maintain SpO2: 90%; *DEAN OF EDUCATION Guidelines for O2: Yes; Document: \[email or web address]\ep ic\EPIC_Reference\Order s\Respiratory Care Guidelines\CPG Oxygen 2022.pdf Respiratory Care Routine As Needed until discontinued starting 06/22/2024 [employer] Work Phone: Comment on above: As Needed until disc ontinued starting 06/22/2024 Payers Date Payer Category Payer Medicaid [employer] [id number] 1990 Unknown [id number] 1990 Unknown [id number] 1990 Unknown [id number] 1990 Unknown [id number] 1990 Unknown [id number] 1990 Unknown [id number] 1990 Unknown [id number] 1990 Unknown [id number] 1990 Unknown [id number] 1958 Medicaid [id number] 1958 Unknown [id number] Social History Date Type Detail Facility Start: 11-23-2023 Tobacco smoking stat [facility] Ex-smoker [facility] History of tobacco use [facility] History of tobacco use Cigarette Smoker P [facility] Start: 11-23-2023 Tobacco use and exposure Smokeless tobacco non-user [facility] Start: 06-21-2024 End: 06-27-2024 Alcoholic beverage intake Lifetime non-drinker (finding) [facility] Start: 08-09-2020 End: 06-22-2024 History of Social function [facility] Start: 08-09-2020 End: 06-22-2024 [facility] Utilities [facility] Has the electric, ga s, oil, or water company threatened to shut off services in your home in past 12Mo No [facility] Adolescent depressio n screening assessment 0 [facility] Start: 1990 Sex assigned at Not on file P [facility] Start: 02-01-2015 Sex Female (finding) [facility] Clinical Notes 08-06-2021 to 06-27-2024 Renea Phipps MD - 06/27/2024 3:00 PM Jillian Medina LPN - 06/22/2024 1:07 PM Jillian Medina LPN - 06/22/2024 1:07 PM ESTPlan of Care - Ynes Guerra RN - 06/22/2024 12:51 PM EST Note Date & Type Note Facility 06-27-2024 History of Presen t illness Narrative Images from the original note were not included. [facility] Ashlie [facility] [id number] Subjective: Patient ID: Doug Gomez is a 34 y.o. female. Chief Complaint Chief Complaint Patient presents with Leg Pain New patient referral- pt complains of pain in back, bilateral legs and hips, states is worse on the right. Says right foot will turn purple at times. History of Present Illness: This is a 34 year old female with past medical history significant for chronic back pain. The patient states over the last two weeks she has noted worsening back pain as well as coolness and discoloration in her right thigh. She presented to the emergency room last week for evaluation. MRI showed L5 and S1 disc disease. An arterial duplex scan was ordered but not performed. The patient reports history of cramping pain in the right leg muscles with ambulation. She denies history of tobacco abuse. She has no prior history of DM II, hypertension, or CAD. Patient Active Problem List Diagnosis Back pain Muscle wasting Trouble walking Current Outpatient Medications: albuterol (PROVENTIL HFA;VENTOLIN HFA) 90 mcg/actuation inhaler, Inhale 2 puffs every 6 (six) hours as needed for wheezing., Disp: , Rfl: budesonide-formoteroL (SYMBICORT) 160-4.5 mcg/actuation inhaler, Inhale 2 puffs in the morning and 2 puffs before bedtime., Disp: , Rfl: lidocaine (LIDODERM) 5 %, Place 1 patch on the skin daily. Remove & Discard patch within 12 hours or as directed by MD, Disp: 30 patch, Rfl: 0 prednisoLONE (ORAPRED) 15 mg/5 mL (3 mg/mL) solution, Take 13.3 mL (40 mg total) by mouth in the morning for 5 days., Disp: 66.5 mL, Rfl: 0 tiZANidine (ZANAFLEX) 4 mg tablet, Take 1 tablet (4 mg total) by mouth every 6 (six) hours as needed for muscle spasms., Disp: 30 tablet, Rfl: 0 ferrous sulfate 325 (65 FE) mg tablet, Take 325 mg by mouth 2 (two) times a day with meals. (Patient not taking: Reported on 06/22/2024), Disp: , Rfl: Past Medical History: Diagnosis Date Anemia Asthma History reviewed. No pertinent surgical history. History reviewed. No pertinent family history. Social History Socioeconomic History Marital status: Spouse name: Not on file Number of children: Not on file Years of education: Not on file Highest education level: Not on file Occupational History Not on file Tobacco Use Smoking status: Former Types: Cigarettes Smokeless tobacco: Never Vaping Use Vaping status: Every Day Substances: Nicotine Substance and Sexual Activity Alcohol use: Never Drug use: Yes Types: Marijuana Sexual activity: Defer Other Topics Concern Not on file Social History Narrative Not on file Social Drivers of Health Financial Resource Strain: Not on file Food Insecurity: No Food Insecurity (06/22/2024) Hunger Screening Food Insecurity - Worry: Never True Food Insecurity - Inability: Never True Transportation Needs: No Transportation Needs (06/22/2024) PRAPARE - Transportation Lack of Transportation (Medical): No Lack of Transportation (Non-Medical): No Physical Activity: Not on file Stress: Not on file Social Connections: Not on file Interpersonal Safety: Not At Risk (06/22/2024) Humiliation, Afraid, Rape, and Kick questionnaire Fear of Current or Ex-Partner: No Emotionally Abused: No Physically Abused: No Sexually Abused: No Housing Instability: Low Risk (06/22/2024) Housing Instability Housing Instability: No Allergies Allergen Reactions Vicodin [Hydrocodone-Acetaminophen] The following portions of the patient's history were reviewed and updated as appropriate: allergies, current medications, past family history, past medical history, past social history, past surgical history and problem list. Review of Systems: Review of Systems Constitutional: Negative. HENT: Negative. Eyes: Negative. Respiratory: Negative. Cardiovascular: Negative. Gastrointestinal: Negative. Endocrine: Negative. Genitourinary: Negative. Musculoskeletal: Negative. Skin: Negative. Allergic/Immunologic: Negative. Neurological: Negative. Hematological: Negative. Psychiatric/Behavioral: Negative. Objective: Vitals BP 126/78 Pulse 87 Wt 54.9 kg (121 lb) LMP 05/28/2024 (Approximate) BMI 20.14 kg/m Physical Exam Physical Exam Vitals and nursing note reviewed. Constitutional: Appearance: She is well-developed. HENT: Head: Normocephalic and atraumatic. Nose: Nose normal. Mouth/Throat: Mouth: Mucous membranes are moist. Pharynx: Oropharynx is clear. Eyes: Conjunctiva/sclera: Conjunctivae normal. Cardiovascular: Rate and Rhythm: Normal rate and regular rhythm. Pulmonary: Effort: Pulmonary effort is normal. Abdominal: Palpations: Abdomen is soft. Musculoskeletal: General: Normal range of motion. Cervical back: Normal range of motion. Skin: General: Skin is warm and dry. Capillary Refill: Capillary refill takes 2 to 3 seconds. Neurological: Mental Status: She is alert and oriented to person, place, and time. On exam the patient's feet are cool to touch with delayed capillary refill. The digits appear dusky. However I am able to easily palpate DP pulses bilaterally. No popliteal artery aneurysm detected Studies Reviewed None No results found for: DDIMER Lab Results Component Value Date GLU 108 (H) 04/12/2024 CALCIUM 9.0 04/12/2024 SODIUM 134 04/12/2024 K 4.0 04/12/2024 CO2 24 04/12/2024 BUN 13 04/12/2024 CREATININE 0.72 06/22/2024 Lab Results Component Value Date WBC 11.3 (H) 04/12/2024 HGB 11.3 (L) 06/22/2024 HCT 33.3 (L) 06/22/2024 MCV 84 04/12/2024 PLT 180 06/22/2024 Assesment: Doug was seen today for leg pain. Diagnoses and all orders for this visit: Back pain - [facility] - RUKHSANA Mendiola Atrophy of muscle of right thigh - [facility] - [place], RUKHSANA Plan: Plan The patient is noted to have palpable pulses in the feet however the feet are cool to touch with delayed capillary refill. I suspect the patient's issues are related to her chronic back disease however will order an arterial duplex scan to evaluate for occlusion or aneurysm or other unusual pathologies which may occur in a young person with no co-morbidities. She will return to the office after testing. This note was created with the assistance of a speech recognition program. While intending to generate a timely document that accurately reflects the content of the visit, no guarantee can be provided that every grammatical or spelling mistake has been or will be identified or corrected. Thank you for your understanding. Renea Phipps MD documented in this encounter [facility] 06-22-2024 Nurse Note Patient IV has been removed. Patient educated and has no questions or concerns. [facility] 06-22-2024 Nurse Note Patient IV has been removed. Patient educated and has no questions or concerns. documented in this encounter [facility] 06-22-2024 Plan of care note Problem: Pain Goal: Patient goal is pain score less than 4, able to rest, and participant in treatment plan as appropriate Description: INTERVENTIONS: 1. Encourage patient or legal off premise service representative to report early pain and ask for pain medicine when needed 2. Assess pain using appropriate pain scale and include the scale used when documenting 3. Administer analgesics based on type and severity of pain and evaluate response within appropriate time frame 4. Implement non-pharmacological measures as appropriate and evaluate response 5. Consider cultural and social influences on pain and pain management 6. Notify LIP if interventions ineffective or patient reports new pain 7. Monitor vital signs including pulse ox, end-tidal CO2 based on pain intervention 8. Reassess pain per policy 9. Teach patient or legal off premise service representative interventions for comforting Outcome: Adequate for Discharge Problem: Safety Goal: Patient will be injury free during hospitalization Description: INTERVENTIONS: 1. Assess patient's risk for falls and implement fall prevention plan of care per policy 2. Provide and maintain a safe environment 3. Proper use of double Identifiers 4. Medication administration using the 5 rights 5. Hand hygiene 6. Specimens are labeled at the bedside 7. Instruct patient/ patient off premise service representative about use of safety devices 8. Include patient/ patient off premise service representative in decisions related to safety Outcome: Adequate for Discharge Problem: Infection Goal: Absence of infection during hospitalization Description: INTERVENTIONS 1. Assess and monitor for signs and symptoms of infection. 2. Monitor lab/diagnostic results. 3. Monitor all insertion sites i.e., indwelling lines, tubes and drains. 4. Monitor endotracheal (as able) and nasal secretions for changes in amount and color. 5. Administer medications as ordered. 6. Instruct and encourage patient and family to use good hand hygiene technique. 7. Identify and instruct patient/patient off premise service representative in use of appropriate isolation precautions for identified infection/symptoms. 8. Provide and discuss with patient/patient off premise service representative on educational MDRO sheet. 9. Encourage and monitor nutritional status daily and consult associate merchandiser if indicated. 10. Implement neutropenic guidelines as needed. Outcome: Adequate for Discharge Problem: Knowledge Deficit Goal: Patient/patient off premise service representative demonstrates understanding of disease process, treatment plan, medications, and discharge instructions Description: INTERVENTIONS 1. Complete learning assessment and assess knowledge base 2. Provide teaching at level of understanding 3. Provide teaching via preferred learning method(s) Outcome: Adequate for Discharge Problem: Discharge Planning Goal: Discharge to post-acute care, other facility, or home with appropriate resources Description: Patient's goal is: INTERVENTIONS 1. Conduct assessment to determine patient/family and health care team treatment goals, and need for post-acute services based on payer coverage, community resources, and patient preferences, and barriers to discharge 2. Coordinate with Social work, Care Navigation, and Utilization Review to arrange appropriate level of services according to patient's needs based on patient preference and payer coverage in collaboration with the physician and health care team 3. Address psychosocial, clinical, and financial barriers to discharge as identified in assessment in conjunction with the patient/family and health care team 4. Consult appropriate ancillary services (i.e.. PT/OT/ST, etc) as needed 5. Communicate with and update the patient/family, physician, and health care team regarding progress on the discharge plan 6. Identify discharge learning needs (meds, wound care, etc). 7. Arrange for needed discharge transportation as appropriate Outcome: Adequate for Discharge Problem: Moderate - High Risk Fall Score Description: Lawson Fall Score of =/> 25 or indicated by [facility] Assessment Goal: Patient should be free from fall Description: Interventions: 1. [place] to environment 2. Hourly rounds addressing the 4 P's (Pain, Positioning, Possessions, Potty) 3. Clear area of hazards (spills, clutter, electrical cords, unnecessary equipment) 4. Place equipment (bed & TV controls, call light, phone, urinal) within reach 5. Encourage patient to wear glasses and hearing aides as appropriate 6. Maintain bed in lowest position 7. Lock wheels on bed/wheelchair 8. Provide adequate lighting, including night light 9. Assess need for additional bedding, food/fluids, pain med's prior to sleep/routinely 10. Provide gripper slippers or personal non-skid footwear 11. Teach patient and patient off premise service representative to maintain environment for safety and engage in all aspects of fall prevention program 12. Remind patient to call for help before getting out of bed 13. Initiate bed/chair/exit alarms supportive devices as appropriate, (chair wedge, no-skid floor mat, raised edge mattress, hip protectors) 14. Locate patient bed assignment for optimal visualization 15. Evaluate and identify Safe Patient Handling Equipment needs 16. Provide supervision when out of bed or chair 17. Utilize gait belt as needed to assist with ambulation 18. Place adaptive equipment (cane, walker) within reach 19. Request patient off premise service representative bring adaptive equipment/mobility aids from home or obtain and provide as needed 20. Consult pharmacy regarding effects of med's affecting mobility, cognition, and alternatives 21. Obtain physician order for PT if risk factors associated with mobility are present 22. Obtain physician order for OT as appropriate 23. Utilize diversional activities 24. Educate patient and patient off premise service representative how to maintain a safe environment during visitation times (notify nurse prior to leaving bedside) 25. Consider appropriateness of medical or non-medical sales associate 26. Set up voiding schedule as appropriate (every 2 hours) Outcome: Adequate for Discharge Problem: Neurosensory - Adult Goal: Achieves stable or improved neurological status Description: Patient's goal is: INTERVENTIONS 1. Assess for and report changes in neurological status 2. Initiate measures to prevent increased intracranial pressure 3. Maintain blood pressure and fluid volume within ordered parameters to optimize cerebral perfusion and minimize risk of hemorrhage 4. Monitor temperature, glucose, and sodium. Initiate appropriate interventions as ordered 06/22/2024 1251 by CARLOTTA Quick Outcome: Adequate for Discharge 06/22/2024 0744 by CARLOTTA Quick Outcome: Progressing Note: Evaluation of progress towards goal: RLE weaker than left on exam, pt experiencing intermittent numbness/tingling in RLE. WCTM. [facility] 3yy game platform 06-22-2024 Miscellaneous Notes Problem: Pain Goal: Patient goal is pain score less than 4, able to rest, and participant in treatment plan as appropriate Description: INTERVENTIONS: 1. Encourage patient or legal off premise service representative to report early pain and ask for pain medicine when needed 2. Assess pain using appropriate pain scale and include the scale used when documenting 3. Administer analgesics based on type and severity of pain and evaluate response within appropriate time frame 4. Implement non-pharmacological measures as appropriate and evaluate response 5. Consider cultural and social influences on pain and pain management 6. Notify LIP if interventions ineffective or patient reports new pain 7. Monitor vital signs including pulse ox, end-tidal CO2 based on pain intervention 8. Reassess pain per policy 9. Teach patient or legal off premise service representative interventions for comforting Outcome: Adequate for Discharge Problem: Safety Goal: Patient will be injury free during hospitalization Description: INTERVENTIONS: 1. Assess patient's risk for falls and implement fall prevention plan of care per policy 2. Provide and maintain a safe environment 3. Proper use of double Identifiers 4. Medication administration using the 5 rights 5. Hand hygiene 6. Specimens are labeled at the bedside 7. Instruct patient/ patient off premise service representative about use of safety devices 8. Include patient/ patient off premise service representative in decisions related to safety Outcome: Adequate for Discharge Problem: Infection Goal: Absence of infection during hospitalization Description: INTERVENTIONS 1. Assess and monitor for signs and symptoms of infection. 2. Monitor lab/diagnostic results. 3. Monitor all insertion sites i.e., indwelling lines, tubes and drains. 4. Monitor endotracheal (as able) and nasal secretions for changes in amount and color. 5. Administer medications as ordered. 6. Instruct and encourage patient and family to use good hand hygiene technique. 7. Identify and instruct patient/patient off premise service representative in use of appropriate isolation precautions for identified infection/symptoms. 8. Provide and discuss with patient/patient off premise service representative on educational MDRO sheet. 9. Encourage and monitor nutritional status daily and consult associate merchandiser if indicated. 10. Implement neutropenic guidelines as needed. Outcome: Adequate for Discharge Problem: Knowledge Deficit Goal: Patient/patient off premise service representative demonstrates understanding of disease process, treatment plan, medications, and discharge instructions Description: INTERVENTIONS 1. Complete learning assessment and assess knowledge base 2. Provide teaching at level of understanding 3. Provide teaching via preferred learning method(s) Outcome: Adequate for Discharge Problem: Discharge Planning Goal: Discharge to post-acute care, other facility, or home with appropriate resources Description: Patient's goal is: INTERVENTIONS 1. Conduct assessment to determine patient/family and health care team treatment goals, and need for post-acute services based on payer coverage, community resources, and patient preferences, and barriers to discharge 2. Coordinate with Social work, Care Navigation, and Utilization Review to arrange appropriate level of services according to patient's needs based on patient preference and payer coverage in collaboration with the physician and health care team 3. Address psychosocial, clinical, and financial barriers to discharge as identified in assessment in conjunction with the patient/family and health care team 4. Consult appropriate ancillary services (i.e.. PT/OT/ST, etc) as needed 5. Communicate with and update the patient/family, physician, and health care team regarding progress on the discharge plan 6. Identify discharge learning needs (meds, wound care, etc). 7. Arrange for needed discharge transportation as appropriate Outcome: Adequate for Discharge Problem: Moderate - High Risk Fall Score Description: Lawson Fall Score of =/> 25 or indicated by [facility] Assessment Goal: Patient should be free from fall Description: Interventions: 1. [place] to environment 2. Hourly rounds addressing the 4 P's (Pain, Positioning, Possessions, Potty) 3. Clear area of hazards (spills, clutter, electrical cords, unnecessary equipment) 4. Place equipment (bed & TV controls, call light, phone, urinal) within reach 5. Encourage patient to wear glasses and hearing aides as appropriate 6. Maintain bed in lowest position 7. Lock wheels on bed/wheelchair 8. Provide adequate lighting, including night light 9. Assess need for additional bedding, food/fluids, pain med's prior to sleep/routinely 10. Provide gripper slippers or personal non-skid footwear 11. Teach patient and patient off premise service representative to maintain environment for safety and engage in all aspects of fall prevention program 12. Remind patient to call for help before getting out of bed 13. Initiate bed/chair/exit alarms supportive devices as appropriate, (chair wedge, no-skid floor mat, raised edge mattress, hip protectors) 14. Locate patient bed assignment for optimal visualization 15. Evaluate and identify Safe Patient Handling Equipment needs 16. Provide supervision when out of bed or chair 17. Utilize gait belt as needed to assist with ambulation 18. Place adaptive equipment (cane, walker) within reach 19. Request patient off premise service representative bring adaptive equipment/mobility aids from home or obtain and provide as needed 20. Consult pharmacy regarding effects of med's affecting mobility, cognition, and alternatives 21. Obtain physician order for PT if risk factors associated with mobility are present 22. Obtain physician order for OT as appropriate 23. Utilize diversional activities 24. Educate patient and patient off premise service representative how to maintain a safe environment during visitation times (notify nurse prior to leaving bedside) 25. Consider appropriateness of medical or non-medical sales associate 26. Set up voiding schedule as appropriate (every 2 hours) Outcome: Adequate for Discharge Problem: Neurosensory - Adult Goal: Achieves stable or improved neurological status Description: Patient's goal is: INTERVENTIONS 1. Assess for and report changes in neurological status 2. Initiate measures to prevent increased intracranial pressure 3. Maintain blood pressure and fluid volume within ordered parameters to optimize cerebral perfusion and minimize risk of hemorrhage 4. Monitor temperature, glucose, and sodium. Initiate appropriate interventions as ordered 06/22/2024 1251 by CARLOTTA Quick Outcome: Adequate for Discharge 06/22/2024 0744 by CARLOTTA Quick Outcome: Progressing Note: Evaluation of progress towards goal: RLE weaker than left on exam, pt experiencing intermittent numbness/tingling in RLE. WCTM. Problem: Neurosensory - Adult Goal: Achieves stable or improved neurological status Description: Patient's goal is: INTERVENTIONS 1. Assess for and report changes in neurological status 2. Initiate measures to prevent increased intracranial pressure 3. Maintain blood pressure and fluid volume within ordered parameters to optimize cerebral perfusion and minimize risk of hemorrhage 4. Monitor temperature, glucose, and sodium. Initiate appropriate interventions as ordered Outcome: Progressing Note: Evaluation of progress towards goal: RLE weaker than left on exam, pt experiencing intermittent numbness/tingling in RLE. WCTM. Problem: Safety Goal: Patient will be injury free during hospitalization Description: INTERVENTIONS: 1. Assess patient's risk for falls and implement fall prevention plan of care per policy 2. Provide and maintain a safe environment 3. Proper use of double Identifiers 4. Medication administration using the 5 rights 5. Hand hygiene 6. Specimens are labeled at the bedside 7. Instruct patient/ patient off premise service representative about use of safety devices 8. Include patient/ patient off premise service representative in decisions related to safety Outcome: Progressing Note: Evaluation of progress towards goal: Pt is free from falls. Bed is in lowest position and brakes are locked. Proper identification is used. Problem: Knowledge Deficit Goal: Patient/patient off premise service representative demonstrates understanding of disease process, treatment plan, medications, and discharge instructions Description: INTERVENTIONS 1. Complete learning assessment and assess knowledge base 2. Provide teaching at level of understanding 3. Provide teaching via preferred learning method(s) Outcome: Progressing Note: Evaluation of progress towards goal: Pt updated on changes in care. Providing teaching to patient Problem: Moderate - High Risk Fall Score Description: Lawson Fall Score of =/> 25 or indicated by [facility] Assessment Goal: Patient should be free from fall Description: Interventions: 1. [place] to environment 2. Hourly rounds addressing the 4 P's (Pain, Positioning, Possessions, Potty) 3. Clear area of hazards (spills, clutter, electrical cords, unnecessary equipment) 4. Place equipment (bed & TV controls, call light, phone, urinal) within reach 5. Encourage patient to wear glasses and hearing aides as appropriate 6. Maintain bed in lowest position 7. Lock wheels on bed/wheelchair 8. Provide adequate lighting, including night light 9. Assess need for additional bedding, food/fluids, pain med's prior to sleep/routinely 10. Provide gripper slippers or personal non-skid footwear 11. Teach patient and patient off premise service representative to maintain environment for safety and engage in all aspects of fall prevention program 12. Remind patient to call for help before getting out of bed 13. Initiate bed/chair/exit alarms supportive devices as appropriate, (chair wedge, no-skid floor mat, raised edge mattress, hip protectors) 14. Locate patient bed assignment for optimal visualization 15. Evaluate and identify Safe Patient Handling Equipment needs 16. Provide supervision when out of bed or chair 17. Utilize gait belt as needed to assist with ambulation 18. Place adaptive equipment (cane, walker) within reach 19. Request patient off premise service representative bring adaptive equipment/mobility aids from home or obtain and provide as needed 20. Consult pharmacy regarding effects of med's affecting mobility, cognition, and alternatives 21. Obtain physician order for PT if risk factors associated with mobility are present 22. Obtain physician order for OT as appropriate 23. Utilize diversional activities 24. Educate patient and patient off premise service representative how to maintain a safe environment during visitation times (notify nurse prior to leaving bedside) 25. Consider appropriateness of medical or non-medical sales associate 26. Set up voiding schedule as appropriate (every 2 hours) Outcome: Progressing Note: Evaluation of progress towards goal: Pt educated on Fall Risk . Pt has non-slip socks on, 2 side rails up, up with assist. Problem: Pain Goal: Patient goal is pain score less than 4, able to rest, and participant in treatment plan as appropriate Description: INTERVENTIONS: 1. Encourage patient or legal off premise service representative to report early pain and ask for pain medicine when needed 2. Assess pain using appropriate pain scale and include the scale used when documenting 3. Administer analgesics based on type and severity of pain and evaluate response within appropriate time frame 4. Implement non-pharmacological measures as appropriate and evaluate response 5. Consider cultural and social influences on pain and pain management 6. Notify LIP if interventions ineffective or patient reports new pain 7. Monitor vital signs including pulse ox, end-tidal CO2 based on pain intervention 8. Reassess pain per policy 9. Teach patient or legal off premise service representative interventions for comforting Outcome: Progressing Note: Evaluation of progress towards goal: pt will be pain free Problem: Safety Goal: Patient will be injury free during hospitalization Description: INTERVENTIONS: 1. Assess patient's risk for falls and implement fall prevention plan of care per policy 2. Provide and maintain a safe environment 3. Proper use of double Identifiers 4. Medication administration using the 5 rights 5. Hand hygiene 6. Specimens are labeled at the bedside 7. Instruct patient/ patient off premise service representative about use of safety devices 8. Include patient/ patient off premise service representative in decisions related to safety Outcome: Progressing Note: Evaluation of progress towards goal: pt will be free of falls Problem: Infection Goal: Absence of infection during hospitalization Description: INTERVENTIONS 1. Assess and monitor for signs and symptoms of infection. 2. Monitor lab/diagnostic results. 3. Monitor all insertion sites i.e., indwelling lines, tubes and drains. 4. Monitor endotracheal (as able) and nasal secretions for changes in amount and color. 5. Administer medications as ordered. 6. Instruct and encourage patient and family to use good hand hygiene technique. 7. Identify and instruct patient/patient off premise service representative in use of appropriate isolation precautions for identified infection/symptoms. 8. Provide and discuss with patient/patient off premise service representative on educational MDRO sheet. 9. Encourage and monitor nutritional status daily and consult associate merchandiser if indicated. 10. Implement neutropenic guidelines as needed. Outcome: Progressing Note: Evaluation of progress towards goal: Problem: Moderate - High Risk Fall Score Description: Lawson Fall Score of =/> 25 or indicated by [facility] Assessment Goal: Patient should be free from fall Description: Interventions: 1. [place] to environment 2. Hourly rounds addressing the 4 P's (Pain, Positioning, Possessions, Potty) 3. Clear area of hazards (spills, clutter, electrical cords, unnecessary equipment) 4. Place equipment (bed & TV controls, call light, phone, urinal) within reach 5. Encourage patient to wear glasses and hearing aides as appropriate 6. Maintain bed in lowest position 7. Lock wheels on bed/wheelchair 8. Provide adequate lighting, including night light 9. Assess need for additional bedding, food/fluids, pain med's prior to sleep/routinely 10. Provide gripper slippers or personal non-skid footwear 11. Teach patient and patient off premise service representative to maintain environment for safety and engage in all aspects of fall prevention program 12. Remind patient to call for help before getting out of bed 13. Initiate bed/chair/exit alarms supportive devices as appropriate, (chair wedge, no-skid floor mat, raised edge mattress, hip protectors) 14. Locate patient bed assignment for optimal visualization 15. Evaluate and identify Safe Patient Handling Equipment needs 16. Provide supervision when out of bed or chair 17. Utilize gait belt as needed to assist with ambulation 18. Place adaptive equipment (cane, walker) within reach 19. Request patient off premise service representative bring adaptive equipment/mobility aids from home or obtain and provide as needed 20. Consult pharmacy regarding effects of med's affecting mobility, cognition, and alternatives 21. Obtain physician order for PT if risk factors associated with mobility are present 22. Obtain physician order for OT as appropriate 23. Utilize diversional activities 24. Educate patient and patient off premise service representative how to maintain a safe environment during visitation times (notify nurse prior to leaving bedside) 25. Consider appropriateness of medical or non-medical sales associate 26. Set up voiding schedule as appropriate (every 2 hours) Outcome: Progressing Note: Evaluation of progress towards goal: Problem: Discharge Planning Goal: Discharge to post-acute care, other facility, or home with appropriate resources Description: Patient's goal is: INTERVENTIONS 1. Conduct assessment to determine patient/family and health care team treatment goals, and need for post-acute services based on payer coverage, community resources, and patient preferences, and barriers to discharge 2. Coordinate with Social work, Care Navigation, and Utilization Review to arrange appropriate level of services according to patient's needs based on patient preference and payer coverage in collaboration with the physician and health care team 3. Address psychosocial, clinical, and financial barriers to discharge as identified in assessment in conjunction with the patient/family and health care team 4. Consult appropriate ancillary services (i.e.. PT/OT/ST, etc) as needed 5. Communicate with and update the patient/family, physician, and health care team regarding progress on the discharge plan 6. Identify discharge learning needs (meds, wound care, etc). 7. Arrange for needed discharge transportation as appropriate Outcome: Progressing Note: Evaluation of progress towards goal: documented in this encounter [facility] 06-22-2024 Hospital course Narrative Images from the original note were not included. ED Observation Discharge Summary BRIEF OVERVIEW Admitting Provider: Delfino Thomas DO Discharge Provider: CAMI JENSEN PA-C Primary Care Physician: FENG GREENBERG MD [phone] Observation Services End Date and Time: No discharge date for patient encounter. Length of Stay: 0 days Chief Complaint: Chief Complaint Patient presents with Back Pain Reason for Observation / Hospitalization: Principal Problem: Back pain Active Problems: Muscle wasting Trouble walking DETAILS OF HOSPITAL STAY History of Present Illness: Please refer to this visit's H&P note Brief Hospital Course: 34-year-old female with history of anemia, asthma presenting to the emergency department with reports of right-sided back pain, leg weakness, numbness, reports of foot changing colors on and off, and gradual worsening of symptoms especially over the past week. Patient states that this is been ongoing for the past 5 years but has rapidly worsened over the past several months. Patient states she has noticed atrophy of the muscles in her right buttock/leg, increasing pain, and increasing difficulty with ambulation. Patient denies any urinary/bowel incontinence. Patient states she is currently scheduled for an MRI/some type of vascular imaging, but has not had then performed at this time. Patient states she is unable to tolerate the symptoms any further and would like further evaluation treatment. Patient was initially seen in [facility], transferred to [facility], and placed in ED observation for MRI/further evaluation. Patient currently is not having any color changes to her foot. Patient is feeling somewhat better, but continues to declined any significant pain treatment at this time. Patient had CT scan performed at [facility] that showed a bulging disc L5 but otherwise no signs of acute abnormality. Patient denies any other areas of injury or other concerns at this time. MRI lumbar spine demonstrated: Subtle grade 1 anterolisthesis L5 on S1, posterior wedging morphology of L5. Nonacute L5 pars defects. No high-grade thecal sac or neural frontal stenosis. Neurosurgery was consulted, recommended multimodal pain control, planning for outpatient MRI thoracic spine. Discussed dopplers being completed inpt vs outpatient. Patient would prefer to have these done outpatient. She was provided vascular follow up. Patient was discharged with prescriptions for lidoderm patches, gabapentin, tizanidine, prednisolone. She was instructed to follow up with her PCP, neurosurgery, and vascular. She was instructed to return with new, worse, worrisome concerns. Patient voiced understanding and was agreeable to the plan of care. All questions and concerns were addressed at the time of discharge. Physical Exam at Discharge: Vitals: 06/22/24 1143 BP: 109/64 Pulse: 75 Resp: 18 Temp: 36.7 C (98.1 F) SpO2: 98% Physical Exam Constitutional She is oriented to person, place, and time. No distress. Vitals reviewed. HENT Head Normocephalic and atraumatic. Mouth/Throat Throat: Oropharynx: oropharynx clear and moist Eyes: Conjunctivae are normal. Neck Neck supple. Cardiovascular: Normal rate and regular rhythm. Pulmonary/Chest: Effort normal and breath sounds normal. She has no wheezes. No respiratory distress. Musculoskeletal: Cervical back: Neck supple. Neurological She is alert and oriented to person, place, and time. Carnation Coma Scale Eyes 4. Verbal 5. Motor 6. Carnation Coma Total 15 Skin: Skin is warm and dry. She is not diaphoretic. Primary Discharge Diagnosis: Back pain Discharge Disposition: Home Discharge Condition: good Discharge Plan: Active Issues Requiring Follow Up: Issue: Diagnoses described above What is Needed: close outpatient follow up within 3 days, return precautions given to return to the ED immediately for any worsening symptoms No future appointments. Information provided to the: Patient Discharge medications: Medication List START taking these medications Instructions Last Dose Given Next Dose Due gabapentin 300 mg capsule Commonly known as: NEURONTIN Take 1 capsule (300 mg total) by mouth 3 (three) times a day for 3 days. lidocaine 5 % Commonly known as: LIDODERM Place 1 patch on the skin daily. Remove & Discard patch within 12 hours or as directed by prednisoLONE 15 mg/5 mL (3 mg/mL) solution Commonly known as: ORAPRED Take 13.3 mL (40 mg total) by mouth in the morning for 5 days. tiZANidine 4 mg tablet Commonly known as: ZANAFLEX Take 1 tablet (4 mg total) by mouth every 6 (six) hours as needed for muscle spasms. CONTINUE taking these medications Instructions Last Dose Given Next Dose Due albuterol 90 mcg/actuation inhaler Commonly known as: PROVENTIL HFA;VENTOLIN HFA Inhale 2 puffs every 6 (six) hours as needed for wheezing. budesonide-formoteroL 160-4.5 mcg/actuation inhaler Commonly known as: SYMBICORT Inhale 2 puffs in the morning and 2 puffs before bedtime. STOP taking these medications CEPHalexin 500 mg capsule Commonly known as: KEFLEX methocarbamoL 500 mg tablet Commonly known as: ROBAXIN montelukast 10 mg tablet Commonly known as: SINGULAIR ondansetron ODT 4 mg disintegrating tablet Commonly known as: ZOFRAN ODT pantoprazole 20 mg EC tablet Commonly known as: PROTONIX ASK your doctor about these medications Instructions Last Dose Given Next Dose Due ferrous sulfate 325 (65 FE) mg tablet Take 325 mg by mouth 2 (two) times a day with meals. Where to Get Your Medications These medications were sent to [facility]/pharmacy #[id number] AT [place] [id number] gabapentin 300 mg capsule lidocaine 5 % prednisoLONE 15 mg/5 mL (3 mg/mL) solution tiZANidine 4 mg tablet Please refer to electronic discharge documentation for further details regarding discharge plan. Physician Discharge Attestation: Time spent by physician coordinating discharge: 30 minutes or less I, the supervising physician, spent the majority of this time performing discharge related services. I made or approved the management plan for the problems addressed during this encounter and take responsibility for the management plan. Cosigned by Delfino Thomas DO at 06/22/2024 12:39 PM EST Associated attestation - Delfino Thomas DO - 06/22/2024 12:39 PM EST Images from the original note were not included. Physician Attestation: I, the supervising physician, performed the majority of the medical decision making. I made or approved the management plan for the problems addressed during this encounter and take responsibility for that management plan. I agree with the findings and plan of care as documented in the KALEY's/resident's note except as noted. I performed a face to face diagnostic evaluation of the patient within 24 hours of placement in observation status. Physical Examination Vitals: Reviewed. General: Well appearing. Does not appear toxic. Head: Normocephalic. Atraumatic. Ears: Normal external appearance. Eyes: Normal conjunctiva. No discharge. Neck: No tracheal deviation. No masses. Cardiovascular: Normal rate. Regular rhythm. Pulmonary: Normal effort. No respiratory distress. Skin: No obvious rash. Dry. Neurologic: No focal deficit. Alert. Psychiatric: Normal behavior. Normal mood. MSK: Muscle wasting noted to right buttocks, decreased range of motion of right hip, some difficulty with ambulation but improved from yesterday. Medical Decision Making History obtained from: Patient and partner Chronic illnesses impacting care: This patient has a past medical history of Anemia and Asthma. Social determinants impacting care: Increased stress Summary of records reviewed: ED notes and workup reviewed Medications and treatments considered: as noted in detailed assessment and plan above Diagnostic tests considered: as noted in detailed assessment and plan above Discussed management with the following providers: Consulting Providers Provider Service Specialty Jelani Bardales MD -- Neurosurgery Escalation to inpatient versus discharge: If patient feels improved and/or has reassuring testing, anticipate discharge. If the patient fails observation care and is expected to stay > 2 midnights, will pursue inpatient stay. [facility] Plan of care note Problem: Neurosensory - Adult Goal: Achieves stable or improved neurological status Description: Patient's goal is: INTERVENTIONS 1. Assess for and report changes in neurological status 2. Initiate measures to prevent increased intracranial pressure 3. Maintain blood pressure and fluid volume within ordered parameters to optimize cerebral perfusion and minimize risk of hemorrhage 4. Monitor temperature, glucose, and sodium. Initiate appropriate interventions as ordered Outcome: Progressing Note: Evaluation of progress towards goal: RLE weaker than left on exam, pt experiencing intermittent numbness/tingling in RLE. [facility] Plan of care note Problem: Safety Goal: Patient will be injury free during hospitalization Description: INTERVENTIONS: 1. Assess patient's risk for falls and implement fall prevention plan of care per policy 2. Provide and maintain a safe environment 3. Proper use of double Identifiers 4. Medication administration using the 5 rights 5. Hand hygiene 6. Specimens are labeled at the bedside 7. Instruct patient/ patient off premise service representative about use of safety devices 8. Include patient/ patient off premise service representative in decisions related to safety Outcome: Progressing Note: Evaluation of progress towards goal: Pt is free from falls. Bed is in lowest position and brakes are locked. Proper identification is used. Problem: Knowledge Deficit Goal: Patient/patient off premise service representative demonstrates understanding of disease process, treatment plan, medications, and discharge instructions Description: INTERVENTIONS 1. Complete learning assessment and assess knowledge base 2. Provide teaching at level of understanding 3. Provide teaching via preferred learning method(s) Outcome: Progressing Note: Evaluation of progress towards goal: Pt updated on changes in care. Providing teaching to patient Problem: Moderate - High Risk Fall Score Description: Lawson Fall Score of =/> 25 or indicated by [facility] Assessment Goal: Patient should be free from fall Description: Interventions: 1. [place] to environment 2. Hourly rounds addressing the 4 P's (Pain, Positioning, Possessions, Potty) 3. Clear area of hazards (spills, clutter, electrical cords, unnecessary equipment) 4. Place equipment (bed & TV controls, call light, phone, urinal) within reach 5. Encourage patient to wear glasses and hearing aides as appropriate 6. Maintain bed in lowest position 7. Lock wheels on bed/wheelchair 8. Provide adequate lighting, including night light 9. Assess need for additional bedding, food/fluids, pain med's prior to sleep/routinely 10. Provide gripper slippers or personal non-skid footwear 11. Teach patient and patient off premise service representative to maintain environment for safety and engage in all aspects of fall prevention program 12. Remind patient to call for help before getting out of bed 13. Initiate bed/chair/exit alarms supportive devices as appropriate, (chair wedge, no-skid floor mat, raised edge mattress, hip protectors) 14. Locate patient bed assignment for optimal visualization 15. Evaluate and identify Safe Patient Handling Equipment needs 16. Provide supervision when out of bed or chair 17. Utilize gait belt as needed to assist with ambulation 18. Place adaptive equipment (cane, walker) within reach 19. Request patient off premise service representative bring adaptive equipment/mobility aids from home or obtain and provide as needed 20. Consult pharmacy regarding effects of med's affecting mobility, cognition, and alternatives 21. Obtain physician order for PT if risk factors associated with mobility are present 22. Obtain physician order for OT as appropriate 23. Utilize diversional activities 24. Educate patient and patient off premise service representative how to maintain a safe environment during visitation times (notify nurse prior to leaving bedside) 25. Consider appropriateness of medical or non-medical sales associate 26. Set up voiding schedule as appropriate (every 2 hours) Outcome: Progressing Note: Evaluation of progress towards goal: Pt educated on Fall Risk . Pt has non-slip socks on, 2 side rails up, up with assist. [facility] 06-22-2024 History and physical note Images from the original note were not included. ED Observation History and Physical Note PROVIDERS: Primary Care Physician: FENG GREENBERG MD [phone] Admitting Provider: Delfino Thomas [facility] START TIMES: ED Date: 06/22/2024 0013 Obs date: 06/22/2024 0301 CHIEF COMPLAINT: Chief Complaint Patient presents with Back Pain PROBLEM: Principal Problem: Back pain HISTORY OF PRESENT ILLNESS: 34-year-old female with history of anemia, asthma presenting to the emergency department with reports of right-sided back pain, leg weakness, numbness, reports of foot changing colors on and off, and gradual worsening of symptoms especially over the past week. Patient states that this is been ongoing for the past 5 years but has rapidly worsened over the past several months. Patient states she has noticed atrophy of the muscles in her right buttock/leg, increasing pain, and increasing difficulty with ambulation. Patient denies any urinary/bowel incontinence. Patient states she is currently scheduled for an MRI/some type of vascular imaging, but has not had then performed at this time. Patient states she is unable to tolerate the symptoms any further and would like further evaluation treatment. Patient was initially seen in [facility], transferred to [facility], and placed in ED observation for MRI/further evaluation. Patient currently is not having any color changes to her foot. Patient is feeling somewhat better, but continues to declined any significant pain treatment at this time. Patient had CT scan performed at [facility] that showed a bulging disc L5 but otherwise no signs of acute abnormality. Patient denies any other areas of injury or other concerns at this time. PAST MEDICAL HISTORY: Past Medical History: Diagnosis Date Anemia Asthma Last Menstrual Period Patient's last menstrual period was 05/28/2024 (approximate). PAST SURGICAL HISTORY: No past surgical history on file. FAMILY HISTORY: No family history on file. Pertinent family history has been noted above and in the HPI. SOCIAL HISTORY: Social History Socioeconomic History Marital status: Tobacco Use Smoking status: Former Types: Cigarettes Smokeless tobacco: Never Vaping Use Vaping status: Every Day Substances: Nicotine Substance and Sexual Activity Alcohol use: Never Drug use: Yes Types: Marijuana Sexual activity: Defer Social Drivers of Health Food Insecurity: No Food Insecurity (06/22/2024) Hunger Screening Food Insecurity - Worry: Never True Food Insecurity - Inability: Never True Transportation Needs: No Transportation Needs (06/22/2024) PRAPARE - Transportation Lack of Transportation (Medical): No Lack of Transportation (Non-Medical): No Interpersonal Safety: Not At Risk (06/22/2024) Humiliation, Afraid, Rape, and Kick questionnaire Fear of Current or Ex-Partner: No Emotionally Abused: No Physically Abused: No Sexually Abused: No Housing Instability: Low Risk (06/22/2024) Housing Instability Housing Instability: No Travel History Travel Screening Question Response Have you been in contact with someone who was sick? No / Unsure Do you have any of the following new or worsening symptoms? None of these Have you traveled internationally or domestically in the last month? No Travel History Travel since 05/23/24 No documented travel since 05/23/24 ALLERGIES: Allergies Allergen Reactions Vicodin [Hydrocodone-Acetaminophen] HOME MEDICATIONS: Medications Prior to Admission Medication Sig Dispense Refill Last Dose/Taking albuterol (PROVENTIL HFA;VENTOLIN HFA) 90 mcg/actuation inhaler Inhale 2 puffs every 6 (six) hours as needed for wheezing. Past Week budesonide-formoteroL (SYMBICORT) 160-4.5 mcg/actuation inhaler Inhale 2 puffs in the morning and 2 puffs before bedtime. Past Week CEPHalexin (KEFLEX) 500 mg capsule Take 500 mg by mouth 2 (two) times a day. (Patient not taking: Reported on 04/12/2024) Unknown ferrous sulfate 325 (65 FE) mg tablet Take 325 mg by mouth 2 (two) times a day with meals. (Patient not taking: Reported on 06/22/2024) Unknown methocarbamoL (ROBAXIN) 500 mg tablet Take 1 tablet (500 mg total) by mouth in the morning and 1 tablet (500 mg total) before bedtime. (Patient not taking: Reported on 06/22/2024) 20 tablet 0 Unknown montelukast (SINGULAIR) 10 mg tablet Take 1 tablet (10 mg total) by mouth nightly. (Patient not taking: Reported on 06/22/2024) Unknown ondansetron ODT (ZOFRAN ODT) 4 mg disintegrating tablet Dissolve 1 tablet (4 mg total) on tongue every 8 (eight) hours as needed for nausea for up to 10 doses. (Patient not taking: Reported on 06/22/2024) 10 tablet 0 Unknown pantoprazole (PROTONIX) 20 mg EC tablet Take 1 tablet (20 mg total) by mouth in the morning. (Patient not taking: Reported on 06/22/2024) 20 tablet 0 Unknown IMMUNIZATIONS: There is no immunization history on file for this patient. REVIEW OF SYSTEMS: Review of Systems Musculoskeletal: Positive for back pain and gait problem. Skin: Positive for color change (intermittent color changes to right foot /leg). Neurological: Positive for numbness. All other systems reviewed and are negative. PHYSICAL EXAM: Vitals: 06/22/24 0413 BP: (!) 140/94 Pulse: 75 Resp: 18 Temp: 36.6 C (97.8 F) SpO2: O2 Device: None (Room air) Physical Exam Constitutional She is oriented to person, place, and time. She appears well-developed and well-nourished. No distress. Nursing note and vitals reviewed. HENT Head Normocephalic and atraumatic. Ears Right Ear: External ear normal. Left Ear: External ear normal. Nose Nose normal. Mouth/Throat Throat: Oropharynx: oropharynx clear and moist Oropharynx negative for exudate. Eyes: Conjunctivae and EOM are normal. Pupils are equal, round, and reactive to light. Right eye exhibits no discharge. Left eye exhibits no discharge. Conjunctiva: Negative for scleral icterus. Neck Normal range of motion. Neck supple. No stridor and no tracheal deviation present. Negative for thyromegaly. Cardiovascular: Normal rate and regular rhythm. Pulses: intact distal pulses Heart Sounds: normal heart sounds. no JVD Pulmonary/Chest: Effort normal and breath sounds normal. She has no wheezes. She has no rales. She exhibits no tenderness. No stridor. No respiratory distress. Abdominal: Bowel sounds are normal. She exhibits no distension and no mass. Soft. There is no abdominal tenderness. There is no rebound and no guarding. No hernia. Musculoskeletal: General: No tenderness or edema. Normal range of motion. Cervical back: Normal range of motion and neck supple. Comments: Some atrophy noted to right buttock/leg, decreased range of motion of the lumbar spine in flexion extension due to pain, tenderness to paraspinal/midline lumbar spine. Lymph System normal. cervical adenopathy not present Neurological She is alert and oriented to person, place, and time. She has normal reflexes. She exhibits normal muscle tone. Gait abnormal. Coordination normal. Skin: Skin is warm and dry. No rash noted. She is not diaphoretic. No erythema. No pallor. Psychiatric: Her behavior is normal. Judgment and thought content normal. Her mood appears anxious. MDM: Chronic illnesses impacting care are as follows: This patient has a past medical history of Anemia and Asthma. Social determinants noted to be impacting care are as follows: Social Drivers of Health with Concerns Financial Resource Strain: Not on file Childcare: Unknown (12/08/2018) Childcare Childcare: Unknown Recent Concern: Childcare - High Risk (09/22/2018) Childcare Childcare: Unknown Employment: Unknown (12/08/2018) Employment Employment: Unknown Recent Concern: Employment - High Risk (09/22/2018) Employment Employment: Unknown Purpose - Life: Unknown (08/09/2020) Purpose - Life Purpose and direction in life: Unknown Alcohol Use: Not on file Tobacco Use: Medium Risk (06/21/2024) Patient History Smoking Tobacco Use: Former Smokeless Tobacco Use: Never Passive Exposure: Not on file Social Connections: Not on file Physical Activity: Not on file Stress: Not on file Summary of records reviewed: ED notes and workup reviewed The workup performed in the emergency department and observation unit was reviewed and independently interpreted by myself including all relevant labs, imaging, and EKGs. Please see assessment and plan for diagnostic tests, medications, and treatments considered. The case was discussed with the following human resource consultant teams. Consulting Providers Provider Service Specialty Jelani Bardales MD -- Neurosurgery Escalation to inpatient versus discharge: If patient feels improved and has reassuring testing, anticipate discharge. If the patient fails observation care and is expected to stay > 2 midnights, will pursue inpatient stay. PROCEDURE: Procedures If an ECG was completed in the observation unit, I have reviewed it. Other Cardiac Testing: If an EKG was performed in the ED, I have reviewed it. Last EKG: No results found. Last Echo: No results found. Last Stress: No results found. For Chest Pain Patients Only: The ASCVD Risk score (Kt MELISSA, et al., 2019) failed to calculate for the following reasons: The 2019 ASCVD risk score is only valid for ages 40 to 79 ASSESSMENT: 1) L5-S1 disc buldge 2) muscle atrophy 3) Difficulty ambulating 4) intermittent leg color changing PLAN: MRI lumbar spine Neuro surgery consult appreciate input Arterial duplex lower extremities Daily labs Pain control Daily ED observation care Code Status: Code Status Information Code Status Full Code [facility] 06-22-2024 History and physical note Images from the original note were not included. ED Observation History and Physical Note PROVIDERS: Primary Care Physician: FENG GREENBERG MD [phone] Admitting Provider: Delfino Thomas DO CARE START TIMES: ED Date: 06/22/2024 0013 Obs date: 06/22/2024 0301 CHIEF COMPLAINT: Chief Complaint Patient presents with Back Pain PROBLEM: Principal Problem: Back pain HISTORY OF PRESENT ILLNESS: 34-year-old female with history of anemia, asthma presenting to the emergency department with reports of right-sided back pain, leg weakness, numbness, reports of foot changing colors on and off, and gradual worsening of symptoms especially over the past week. Patient states that this is been ongoing for the past 5 years but has rapidly worsened over the past several months. Patient states she has noticed atrophy of the muscles in her right buttock/leg, increasing pain, and increasing difficulty with ambulation. Patient denies any urinary/bowel incontinence. Patient states she is currently scheduled for an MRI/some type of vascular imaging, but has not had then performed at this time. Patient states she is unable to tolerate the symptoms any further and would like further evaluation treatment. Patient was initially seen in [facility], transferred to [facility], and placed in ED observation for MRI/further evaluation. Patient currently is not having any color changes to her foot. Patient is feeling somewhat better, but continues to declined any significant pain treatment at this time. Patient had CT scan performed at [facility] that showed a bulging disc L5 but otherwise no signs of acute abnormality. Patient denies any other areas of injury or other concerns at this time. PAST MEDICAL HISTORY: Past Medical History: Diagnosis Date Anemia Asthma Last Menstrual Period Patient's last menstrual period was 05/28/2024 (approximate). PAST SURGICAL HISTORY: No past surgical history on file. FAMILY HISTORY: No family history on file. Pertinent family history has been noted above and in the HPI. SOCIAL HISTORY: Social History Socioeconomic History Marital status: Tobacco Use Smoking status: Former Types: Cigarettes Smokeless tobacco: Never Vaping Use Vaping status: Every Day Substances: Nicotine Substance and Sexual Activity Alcohol use: Never Drug use: Yes Types: Marijuana Sexual activity: Defer Social Drivers of Health Food Insecurity: No Food Insecurity (06/22/2024) Hunger Screening Food Insecurity - Worry: Never True Food Insecurity - Inability: Never True Transportation Needs: No Transportation Needs (06/22/2024) PRAPARE - Transportation Lack of Transportation (Medical): No Lack of Transportation (Non-Medical): No Interpersonal Safety: Not At Risk (06/22/2024) Humiliation, Afraid, Rape, and Kick questionnaire Fear of Current or Ex-Partner: No Emotionally Abused: No Physically Abused: No Sexually Abused: No Housing Instability: Low Risk (06/22/2024) Housing Instability Housing Instability: No Travel History Travel Screening Question Response Have you been in contact with someone who was sick? No / Unsure Do you have any of the following new or worsening symptoms? None of these Have you traveled internationally or domestically in the last month? No Travel History Travel since 05/23/24 No documented travel since 05/23/24 ALLERGIES: Allergies Allergen Reactions Vicodin [Hydrocodone-Acetaminophen] HOME MEDICATIONS: Medications Prior to Admission Medication Sig Dispense Refill Last Dose/Taking albuterol (PROVENTIL HFA;VENTOLIN HFA) 90 mcg/actuation inhaler Inhale 2 puffs every 6 (six) hours as needed for wheezing. Past Week budesonide-formoteroL (SYMBICORT) 160-4.5 mcg/actuation inhaler Inhale 2 puffs in the morning and 2 puffs before bedtime. Past Week CEPHalexin (KEFLEX) 500 mg capsule Take 500 mg by mouth 2 (two) times a day. (Patient not taking: Reported on 04/12/2024) Unknown ferrous sulfate 325 (65 FE) mg tablet Take 325 mg by mouth 2 (two) times a day with meals. (Patient not taking: Reported on 06/22/2024) Unknown methocarbamoL (ROBAXIN) 500 mg tablet Take 1 tablet (500 mg total) by mouth in the morning and 1 tablet (500 mg total) before bedtime. (Patient not taking: Reported on 06/22/2024) 20 tablet 0 Unknown montelukast (SINGULAIR) 10 mg tablet Take 1 tablet (10 mg total) by mouth nightly. (Patient not taking: Reported on 06/22/2024) Unknown ondansetron ODT (ZOFRAN ODT) 4 mg disintegrating tablet Dissolve 1 tablet (4 mg total) on tongue every 8 (eight) hours as needed for nausea for up to 10 doses. (Patient not taking: Reported on 06/22/2024) 10 tablet 0 Unknown pantoprazole (PROTONIX) 20 mg EC tablet Take 1 tablet (20 mg total) by mouth in the morning. (Patient not taking: Reported on 06/22/2024) 20 tablet 0 Unknown IMMUNIZATIONS: There is no immunization history on file for this patient. REVIEW OF SYSTEMS: Review of Systems Musculoskeletal: Positive for back pain and gait problem. Skin: Positive for color change (intermittent color changes to right foot /leg). Neurological: Positive for numbness. All other systems reviewed and are negative. PHYSICAL EXAM: Vitals: 06/22/24 0413 BP: (!) 140/94 Pulse: 75 Resp: 18 Temp: 36.6 C (97.8 F) SpO2: O2 Device: None (Room air) Physical Exam Constitutional She is oriented to person, place, and time. She appears well-developed and well-nourished. No distress. Nursing note and vitals reviewed. HENT Head Normocephalic and atraumatic. Ears Right Ear: External ear normal. Left Ear: External ear normal. Nose Nose normal. Mouth/Throat Throat: Oropharynx: oropharynx clear and moist Oropharynx negative for exudate. Eyes: Conjunctivae and EOM are normal. Pupils are equal, round, and reactive to light. Right eye exhibits no discharge. Left eye exhibits no discharge. Conjunctiva: Negative for scleral icterus. Neck Normal range of motion. Neck supple. No stridor and no tracheal deviation present. Negative for thyromegaly. Cardiovascular: Normal rate and regular rhythm. Pulses: intact distal pulses Heart Sounds: normal heart sounds. no JVD Pulmonary/Chest: Effort normal and breath sounds normal. She has no wheezes. She has no rales. She exhibits no tenderness. No stridor. No respiratory distress. Abdominal: Bowel sounds are normal. She exhibits no distension and no mass. Soft. There is no abdominal tenderness. There is no rebound and no guarding. No hernia. Musculoskeletal: General: No tenderness or edema. Normal range of motion. Cervical back: Normal range of motion and neck supple. Comments: Some atrophy noted to right buttock/leg, decreased range of motion of the lumbar spine in flexion extension due to pain, tenderness to paraspinal/midline lumbar spine. Lymph System normal. cervical adenopathy not present Neurological She is alert and oriented to person, place, and time. She has normal reflexes. She exhibits normal muscle tone. Gait abnormal. Coordination normal. Skin: Skin is warm and dry. No rash noted. She is not diaphoretic. No erythema. No pallor. Psychiatric: Her behavior is normal. Judgment and thought content normal. Her mood appears anxious. MDM: Chronic illnesses impacting care are as follows: This patient has a past medical history of Anemia and Asthma. Social determinants noted to be impacting care are as follows: Social Drivers of Health with Concerns Financial Resource Strain: Not on file Childcare: Unknown (12/08/2018) Childcare Childcare: Unknown Recent Concern: Childcare - High Risk (09/22/2018) Childcare Childcare: Unknown Employment: Unknown (12/08/2018) Employment Employment: Unknown Recent Concern: Employment - High Risk (09/22/2018) Employment Employment: Unknown Purpose - Life: Unknown (08/09/2020) Purpose - Life Purpose and direction in life: Unknown Alcohol Use: Not on file Tobacco Use: Medium Risk (06/21/2024) Patient History Smoking Tobacco Use: Former Smokeless Tobacco Use: Never Passive Exposure: Not on file Social Connections: Not on file Physical Activity: Not on file Stress: Not on file Summary of records reviewed: ED notes and workup reviewed The workup performed in the emergency department and observation unit was reviewed and independently interpreted by myself including all relevant labs, imaging, and EKGs. Please see assessment and plan for diagnostic tests, medications, and treatments considered. The case was discussed with the following human resource consultant teams. Consulting Providers Provider Service Specialty Jelani Bardales MD -- Neurosurgery Escalation to inpatient versus discharge: If patient feels improved and has reassuring testing, anticipate discharge. If the patient fails observation care and is expected to stay > 2 midnights, will pursue inpatient stay. PROCEDURE: Procedures If an ECG was completed in the observation unit, I have reviewed it. Other Cardiac Testing: If an EKG was performed in the ED, I have reviewed it. Last EKG: No results found. Last Echo: No results found. Last Stress: No results found. For Chest Pain Patients Only: The ASCVD Risk score (Kt DK, et al., 2019) failed to calculate for the following reasons: The 2019 ASCVD risk score is only valid for ages 40 to 79 ASSESSMENT: 1) L5-S1 disc buldge 2) muscle atrophy 3) Difficulty ambulating 4) intermittent leg color changing PLAN: MRI lumbar spine Neuro surgery consult appreciate input Arterial duplex lower extremities Daily labs Pain control Daily ED observation care Code Status: Code Status Information Code Status Full Code documented in this encounter [employer] 06-22-2024 Plan of care note Problem: Pain Goal: Patient goal is pain score less than 4, able to rest, and participant in treatment plan as appropriate Description: INTERVENTIONS: 1. Encourage patient or legal off premise service representative to report early pain and ask for pain medicine when needed 2. Assess pain using appropriate pain scale and include the scale used when documenting 3. Administer analgesics based on type and severity of pain and evaluate response within appropriate time frame 4. Implement non-pharmacological measures as appropriate and evaluate response 5. Consider cultural and social influences on pain and pain management 6. Notify LIP if interventions ineffective or patient reports new pain 7. Monitor vital signs including pulse ox, end-tidal CO2 based on pain intervention 8. Reassess pain per policy 9. Teach patient or legal off premise service representative interventions for comforting Outcome: Progressing Note: Evaluation of progress towards goal: pt will be pain free Problem: Safety Goal: Patient will be injury free during hospitalization Description: INTERVENTIONS: 1. Assess patient's risk for falls and implement fall prevention plan of care per policy 2. Provide and maintain a safe environment 3. Proper use of double Identifiers 4. Medication administration using the 5 rights 5. Hand hygiene 6. Specimens are labeled at the bedside 7. Instruct patient/ patient off premise service representative about use of safety devices 8. Include patient/ patient off premise service representative in decisions related to safety Outcome: Progressing Note: Evaluation of progress towards goal: pt will be free of falls Problem: Infection Goal: Absence of infection during hospitalization Description: INTERVENTIONS 1. Assess and monitor for signs and symptoms of infection. 2. Monitor lab/diagnostic results. 3. Monitor all insertion sites i.e., indwelling lines, tubes and drains. 4. Monitor endotracheal (as able) and nasal secretions for changes in amount and color. 5. Administer medications as ordered. 6. Instruct and encourage patient and family to use good hand hygiene technique. 7. Identify and instruct patient/patient off premise service representative in use of appropriate isolation precautions for identified infection/symptoms. 8. Provide and discuss with patient/patient off premise service representative on educational MDRO sheet. 9. Encourage and monitor nutritional status daily and consult associate merchandiser if indicated. 10. Implement neutropenic guidelines as needed. Outcome: Progressing Note: Evaluation of progress towards goal: Problem: Moderate - High Risk Fall Score Description: Lawson Fall Score of =/> 25 or indicated by [facility] Assessment Goal: Patient should be free from fall Description: Interventions: 1. [place] to environment 2. Hourly rounds addressing the 4 P's (Pain, Positioning, Possessions, Potty) 3. Clear area of hazards (spills, clutter, electrical cords, unnecessary equipment) 4. Place equipment (bed & TV controls, call light, phone, urinal) within reach 5. Encourage patient to wear glasses and hearing aides as appropriate 6. Maintain bed in lowest position 7. Lock wheels on bed/wheelchair 8. Provide adequate lighting, including night light 9. Assess need for additional bedding, food/fluids, pain med's prior to sleep/routinely 10. Provide gripper slippers or personal non-skid footwear 11. Teach patient and patient off premise service representative to maintain environment for safety and engage in all aspects of fall prevention program 12. Remind patient to call for help before getting out of bed 13. Initiate bed/chair/exit alarms supportive devices as appropriate, (chair wedge, no-skid floor mat, raised edge mattress, hip protectors) 14. Locate patient bed assignment for optimal visualization 15. Evaluate and identify Safe Patient Handling Equipment needs 16. Provide supervision when out of bed or chair 17. Utilize gait belt as needed to assist with ambulation 18. Place adaptive equipment (cane, walker) within reach 19. Request patient off premise service representative bring adaptive equipment/mobility aids from home or obtain and provide as needed 20. Consult pharmacy regarding effects of med's affecting mobility, cognition, and alternatives 21. Obtain physician order for PT if risk factors associated with mobility are present 22. Obtain physician order for OT as appropriate 23. Utilize diversional activities 24. Educate patient and patient off premise service representative how to maintain a safe environment during visitation times (notify nurse prior to leaving bedside) 25. Consider appropriateness of medical or non-medical sales associate 26. Set up voiding schedule as appropriate (every 2 hours) Outcome: Progressing Note: Evaluation of progress towards goal: Problem: Discharge Planning Goal: Discharge to post-acute care, other facility, or home with appropriate resources Description: Patient's goal is: INTERVENTIONS 1. Conduct assessment to determine patient/family and health care team treatment goals, and need for post-acute services based on payer coverage, community resources, and patient preferences, and barriers to discharge 2. Coordinate with Social work, Care Navigation, and Utilization Review to arrange appropriate level of services according to patient's needs based on patient preference and payer coverage in collaboration with the physician and health care team 3. Address psychosocial, clinical, and financial barriers to discharge as identified in assessment in conjunction with the patient/family and health care team 4. Consult appropriate ancillary services (i.e.. PT/OT/ST, etc) as needed 5. Communicate with and update the patient/family, physician, and health care team regarding progress on the discharge plan 6. Identify discharge learning needs (meds, wound care, etc). 7. Arrange for needed discharge transportation as appropriate Outcome: Progressing Note: Evaluation of progress towards goal: [facility] 06-22-2024 Emergency department Triage note Patient presented to [facility] due to losing muscle mass in her Rt buttock and RLE turning purple along with shaking. [facility] 06-22-2024 Emergency department Note Patient presented to [facility] due to losing muscle mass in her Rt buttock and RLE turning purple along with shaking. documented in this encounter [facility] 08-06-2021 Note Chief Complaint consultation for RUQ [...] adapter, 2 puf (more content not included)... [facility] Comment on above: Result Comment: Elec tronically Signed By: POPPY VALDEZ, Fred Jain\Date and Time Signed: 08/06/21 15:12 EST Evaluation note Diagnosis Back pain- Primary Unspecified backache Back pain Unspecified backache Atrophy of muscle of right thigh Muscle wasting Muscular wasting and disuse atrophy, not elsewhere classified Trouble walking Difficulty in walking [facility] Back pain Unspecified backache Atrophy of muscle of right thigh [facility]* Attachments The following attachments cannot be sent through Care Everywhere. * Upper Back Pain Discharge Instructions (Luxem[place]ish) documented in this encounterProSelect [facility] SystemInstructionsNot on file documented in this encounterGlenbeigh [facility] Summary Purpose Family History No Family History Records FoundNo Family History Records FoundNo Family History Records FoundNo Family History Records FoundNo Family History Records Found Advance Directives No Advanced Directives Records Found Date Activated Date Inactivated Comments 06/22/2024 3:03 AM Date Activated Date Inactivated Comments 06/22/2024 3:03 AM 06/22/2024 3:37 PM Additional Source Comments INFORMATION SOURCE (unrecogn ized section and content) DATE CREATED AUTHOR 09/15/2021 Marcio Lonoke [facility] DATE CREATED AUTHOR AUTHOR'S ORGANIZ ATION 08/26/2022 [facility] DATE CREATED AUTHOR AUTHOR'S ORGANIZ ATION 06/23/2024 [facility] DATE CREATED AUTHOR AUTHOR'S ORGANIZ ATION 06/23/2024 [facility] DATE CREATED AUTHOR AUTHOR'S ORGANIZ ATION 06/29/2024 [facility] Reason for Visit (unrecogniz ed section and content) Reason Comments Back Pain Reason Comments Leg Pain New patient referral - pt complains of pain in back, bilateral legs and hips, states is worse on the right. Says right foot will turn purple at times. Specialty Diagnoses / Procedures Referred By Sudha ye Referred To Contact Vascular Surgery Diagnoses Back pain Atrophy of muscle of right thigh Delfino Thomas, DO [address] [place] [address] Phone: tel: fax: [facility] [address] [place] [address] Phone: tel:[phone] fax: Referral ID Status Reason Start Date Expiration Date Visits Requested Visits Authorized [id number] Pending Review Specialty Services Required 06/22/2025 1 1 Scheduled Active and Recently Administ ered Medications (unrecognized section and content) Medication Order 06/20/2024 06/21/2024 06/22/2024 enoxaparin (LOVENOX) syringe 40 mg 40 mg, subcutaneous, Daily, First dose on Thu06/22/24 at 0305, Look-alike/sound-alike medication - verify indication for use. 0305 (Not Given - Pr ovider: Valerie Dee RN - Reason: Patient/family refused) ketorolac (TORADOL) injection 15 mg (COMPLETED) 15 mg, intravenous, Once, On Thu06/22/24 at 0125, For 1 dose, Look-alike/sound-alike medication - verify indication for use. Duration of therapy is not to exceed 5 days. Maximum recommended dose + 120mg/24 hours. 0141 (Given - Provid er: Fabián Matthews RN) morphine injection 4 mg (COMPLETED) 4 mg, intravenous, Once, On Thu06/22/24 at 0125, For 1 dose, Look-alike/sound-alike medication - verify indication for use. 0141 (Given - Provid er: Fabián Matthews RN) sodium chloride 0.9 % flush 3 mL 3 mL, intravenous, Every 12 hours scheduled, First dose on Thu06/22/24 at 0900 0908 (Given - Provid er: Desirae Medina LPN)2100 (Due) PRN Medication Order 06/20/2024 06/21/2024 06/22/2024 acetaminophen (TYLENOL) tablet 650 mg 650 mg, oral, Every 6 hours PRN, headaches, temperature greater than 38.3 C, Starting on Thu06/22/24 at 0301 calcium gluconate 3,000 mg in sodium chloride 0.9 % 100 mL IVPB 3,000 mg, intravenous, at 43.3 mL/hr, Administer over 3 Hours, As needed, ionized calcium 3.5 to 3.9 mg/dL, Starting on Thu06/22/24 at 0301, IV Administration of calcium via a central or deep vein preferred. Avoid administration in small hand veins VESICANT (RED) calcium gluconate 4,000 mg in sodium chloride 0.9 % 250 mL IVPB 4,000 mg, intravenous, at 72.5 mL/hr, Administer over 4 Hours, As needed, ionized calcium 3.4 mg/dL or less, Starting on Thu06/22/24 at 0301, IV administration of calcium via a central or deep vein is preferred. Avoid administration in small hand veins. VESICANT (RED) calcium gluconate IVPB 2000 mg/100 mL (20 mg/mL premix) 2,000 mg, intravenous, at 50 mL/hr, Administer over 2 Hours, As needed, ionized calcium 4 to 4.3 mg/dL, Starting on Thu06/22/24 at 300, IV Administration of calcium via a central or deep vein preferred. Avoid administration in small hand veins VESICANT (RED) dextrose (GLUTOSE) 40 % gel 15 g 15 g, oral, As needed, low blood sugar, blood glucose less than 70 mg/dL, Starting on Thu06/22/24 at 300, If patient conscious and taking PO. If blood glucose is not greater than 70 mg/dL after initial treatment, repeat treatment. dextrose 5 % (D5W) infusion 100 mL/hr, intravenous, Continuous PRN, blood glucose less than 70 mg/dL, Starting on Thu06/22/24 at 300, For 1 day, Use immediately following dextrose 50% or glucagon treatment for patients who are unconscious or NPO. Contact prescriber for additional orders. If blood glucose is not greater than 70 mg/dL after initial treatment, repeat treatment. dextrose 50 % in water (D50W) 50% solution 25 mL 25 mL, intravenous, As needed, low blood sugar, blood glucose less than 70 mg/dL and unconscious or NPO with IV access, Starting on Thu06/22/24 at 300, Push over 1-3 minutes STAT. If conscious and not NPO, immediately follow with meal tray or high protein (7 grams) snack if tray not available. If NPO, initiate 5% dextrose in water at 100 mL/hr and contact prescriber for additional orders. If blood glucose is not greater than 70 mg/dL after initial treatment, repeat treatment. VESICANT (RED) Warning: HYPERTONIC solution. glucagon HCL injection 1 mg 1 mg, intramuscular, As needed, low blood sugar, blood glucose less than 70 mg/dL and unconscious or NPO without IV access., Starting on Thu06/22/24 at 300, If conscious and not NPO, immediately follow with meal tray or high protein (7Grams) snack if tray not available. If NPO, initiate IV 5% Dextrose/Water at 100 mL/hr and contact prescriber for additional orders. If blood glucose is not greater than 70 mg/dL after initial treatment, repeat treatment. ketorolac (TORADOL) injection 15 mg 15 mg, intravenous, Every 6 hours PRN, moderate pain - pain scale 4-6, Starting on Thu06/22/24 at 0911, For 3 days, Look-alike/sound-alike medication - verify indication for use. Duration of therapy is not to exceed 5 days. Maximum recommended dose + 120mg/24 hours. magnesium sulfate IVPB 2000 mg/50 mL in iso-osmotic water (40 mg/mL premix) 2,000 mg, intravenous, at 25 mL/hr, Administer over 120 Minutes, As needed, Magnesium level 1.7 to 1.9 mg/dL, or Ionized Magnesium level 0.45 to 0.5 mmol/L., Starting on Thu06/22/24 at 0301, Recheck magnesium level 4 hours after infusion complete. With each magnesium result continue the replacement orders as needed. magnesium sulfate IVPB 4000 mg/100 mL in iso-osmotic water (40 mg/mL premix) 4,000 mg, intravenous, at 25 mL/hr, Administer over 240 Minutes, As needed, Magnesium level 1.6 mg/dL or less, or Ionized Magnesium level 0.44 mmol/L or less, Starting on Thu06/22/24 at 0301, Recheck magnesium level 4 hours after infusion complete. With each magnesium result continue the replacement orders as needed. morphine injection 2 mg 2 mg, intravenous, Every 4 hours PRN, severe pain - pain scale 7-10, Starting on Thu06/22/24 at 0911, Look-alike/sound-alike medication - verify indication for use. 0930 (Given - Provid er: Ynes Guerra RN) potassium chloride (K-TAB,KLOR-CON) CR tablet 30-50 mEq(Linked Group 1) 30-50 mEq, oral, As needed, potassium supplementation, Starting on Thu06/22/24 at 0301, Progress to oral potassium replacement when patient tolerating oral intake. If dose administered, recheck potassium level 4 hours after last dose. For potassium level 3.4 to 3.8 mmol/L and GFR 30 mL/min or greater=30 mEq. For potassium level 3.1 to 3.3 mmol/L and GFR 30 mL/min or greater=40 mEq. For potassium level 3 mmol/L or less and GFR 30 mL/min or greater=50 mEq. Do not crush or chew. potassium chloride (KAYCIEL) 20 mEq/15 mL solution 30-50 mEq(Linked Group 1) 30-50 mEq, oral, As needed, potassium supplementation, Starting on Thu06/22/24 at 030, Progress to oral potassium replacement when patient tolerating oral intake. If dose administered, recheck potassium level 4 hours after last dose. For potassium level 3.4 to 3.8 mmol/L and GFR 30 mL/min or greater=30 mEq. For potassium level 3.1 to 3.3 mmol/L and GFR 30 mL/min or greater=40 mEq. For potassium level 3 mmol/L or less and GFR 30 mL/min or greater=50 mEq. Must dilute before use - Mix in 3-8 ounces of water or juice before administration When administering in feeding tube, flush before and after per policy and monitor potassium levels sod phos di, mono-K phos mono (K-PHOS NEUTRAL) 250 mg tablet 2 tablet(Linked Group 2) 2 tablet, oral, As needed, for phosphorus level 2.3 mg/dL or less., Starting on Thu06/22/24 at 300, Administer oral dose if patient tolerating PO. If dose administered, recheck phosphorus level 4 hours after last dose. Look-alike/sound-alike medication - verify indication for use. Give with a full glass of water. sodium chloride 0.9 % flush 3 mL 3 mL, intravenous, As needed, line care, before and after each intermittent use, Starting on Thu06/22/24 at 300 sodium chloride 0.9 % infusion 20 mL/hr, intravenous, Continuous PRN, to maintain patency of lines, Starting on Thu06/22/24 at 030, For 1 day sodium phosphate 20 mmol in sodium chloride 0.9 % 100 mL IVPB(Linked Group 2) 20 mmol, intravenous, at 26.7 mL/hr, Administer over 4 Hours, As needed, for phosphorus level 2.3 mg/dL or less., Starting on Thu06/22/24 at 030, Administer IV dose if NPO or not tolerating PO. Administer over 4 hours via dedicated line (central line). If administered, recheck phosphorus level 4 hours after infusion complete. Infuse using central line access. sodium phosphate 20 mmol in sodium chloride 0.9 % 250 mL IVPB(Linked Group 2) 20 mmol, intravenous, at 42.8 mL/hr, Administer over 6 Hours, As needed, for phosphorus level 2.3 mg/dL or less, Starting on Thu06/22/24 at 030, Administer IV dose if NPO or not tolerating PO. Administer over 6 hours via dedicated line (peripheral line). If administered, recheck phosphorus level 4 hours after infusion complete. Linked Groups Order Group 1: potassium chloride (K-TAB,KLOR-CON) CR tablet 30-50 mEqJump to med 30-50 mEq, oral, As needed, potassium supplementation, Starting on Thu06/22/24 at 030, Progress to oral potassium replacement when patient tolerating oral intake. If dose administered, recheck potassium level 4 hours after last dose. For potassium level 3.4 to 3.8 mmol/L and GFR 30 mL/min or greater=30 mEq. For potassium level 3.1 to 3.3 mmol/L and GFR 30 mL/min or greater=40 mEq. For potassium level 3 mmol/L or less and GFR 30 mL/min or greater=50 mEq. Do not crush or chew. Or potassium chloride (KAYCIEL) 20 mEq/15 mL solution 30-50 mEqJump to med 30-50 mEq, oral, As needed, potassium supplementation, Starting on Thu06/22/24 at 300, Progress to oral potassium replacement when patient tolerating oral intake. If dose administered, recheck potassium level 4 hours after last dose. For potassium level 3.4 to 3.8 mmol/L and GFR 30 mL/min or greater=30 mEq. For potassium level 3.1 to 3.3 mmol/L and GFR 30 mL/min or greater=40 mEq. For potassium level 3 mmol/L or less and GFR 30 mL/min or greater=50 mEq. Must dilute before use - Mix in 3-8 ounces of water or juice before administration When administering in feeding tube, flush before and after per policy and monitor potassium levels Group 2: sodium phosphate 20 mmol in sodium chloride 0.9 % 250 mL IVPBJump to med 20 mmol, intravenous, at 42.8 mL/hr, Administer over 6 Hours, As needed, for phosphorus level 2.3 mg/dL or less, Starting on Thu06/22/24 at 030, Administer IV dose if NPO or not tolerating PO. Administer over 6 hours via dedicated line (peripheral line). If administered, recheck phosphorus level 4 hours after infusion complete. Or sodium phosphate 20 mmol in sodium chloride 0.9 % 100 mL IVPBJump to med 20 mmol, intravenous, at 26.7 mL/hr, Administer over 4 Hours, As needed, for phosphorus level 2.3 mg/dL or less., Starting on Thu06/22/24 at 0301, Administer IV dose if NPO or not tolerating PO. Administer over 4 hours via dedicated line (central line). If administered, recheck phosphorus level 4 hours after infusion complete. Infuse using central line access. Or sod phos di, mono-K phos mono (K-PHOS NEUTRAL) 250 mg tablet 2 tabletJump to med 2 tablet, oral, As needed, for phosphorus level 2.3 mg/dL or less., Starting on Thu06/22/24 at 030, Administer oral dose if patient tolerating PO. If dose administered, recheck phosphorus level 4 hours after last dose. Look-alike/sound-alike medication - verify indication for use. Give with a full glass of water. Care Teams (unrecognized sec tion and content) [employer] Relationship Specialty Start Date End Date Feng Greenberg MD PCP - General Family Medicine 04/12/24 [employer] Relationship Specialty Start Date End Date Feng Greenberg MD PCP - General Family Medicine 04/12/24 FOR RECORDS PERTAINING TO PATIENTS WHO ARE [...] BE BASED ON THE PRIMARY CLINICAL RECORDS. [employer] [facility]. provides no warranty or guarantee of the accuracy or completeness of information in this document.
== END 2024-07-01 09:57 | disposition home or self-care (01) ==
LOC: EC 09:56
PROVIDERS: PCP Family Medicine; Visit Provider Orthopaedic Surgery Orthopaedic Surgery of the Spine
DX: M54.50 Low back pain, unspecified (principal)
CPT/HCPCS: 72100

== ENCOUNTER 2024-08-02 10:46 | Outpatient (OUT) | payer MEDICAID, SELFPAY ==
--- NOTE | 2024-08-02 10:56 | ECG_ITS ---
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
--- NOTE | 2024-08-02 10:56 | XR_ITS ---
[address] [address] Patient Name: JARRELL WHITING MRN: [id number] date: 1990 Sex: F Assigned Patient Location: [facility] Current Patient Location: Accession/Order Number: [id number] Exam Date: 08/02/2024 11:48 Report Date: 08/04/2024 10:22 At the request of: ZACHERY CLAIRE Procedure: XR chest 2V EXAMINATION: XR chest 2V HISTORY: Preop exam COMPARISON: No relevant comparison available. TECHNIQUE: PA and lateral FINDINGS: LUNGS: No significant pulmonary parenchymal abnormalities. VASCULATURE: No increased pulmonary vasculature. PLEURA: No pneumothorax, effusion, or pleural thickening. CARDIAC: No cardiomegaly or cardiac silhouette abnormality. MEDIASTINUM: No visible mass or adenopathy. BONES: No fracture or visible bone lesion. OTHER: Negative. XR/XR chest 2V IMPRESSION: No acute cardiopulmonary process Electronically authenticated by: JOSE ALEJANDRO SAUCEDO Date: 08/04/2024 10:22
[2024-08-02 11:55] LABS: Basophils Percent Auto 0.6 % (0.2-2.0); Eosinophils Absolute Auto 0.1 10^3/uL (0.0-0.7); Eosinophils Percent Auto 0.9 % (0.9-7.0); Hematocrit 41.2 % (36.0-48.0); Hemoglobin 13.5 g/dL (12.0-16.0); Immature Granulocytes Abs Auto 0.01 10^3/uL (0.00-0.03); Immature Granulocytes Pct Auto 0.1 % (0.0-0.5); Lymphocytes Absolute Auto 2.2 10^3/uL (1.2-3.8); Lymphocytes Percent Auto 33.3 % (20.5-60.0); Mean Corpuscular HGB Conc 32.8 g/dL (29.9-35.2); Mean Corpuscular Hemoglobin 26.7 pg (26.7-34.0); Mean Corpuscular Volume 81.6 fL (81.0-99.0); Mean Platelet Volume 10.8 fL (9.5-13.5); Monocytes Absolute Auto 0.6 10^3/uL (0.3-0.8); Monocytes Percent Auto 8.5 % (1.7-12.0); Neutrophils Absolute Auto 3.8 10^3/uL (1.4-6.5); Neutrophils Percent Auto 56.6 % (43.0-75.0); Platelet Count 231 10^3/uL (150-450); Red Blood Count 5.05 10^6/uL (4.20-5.40); Red Cell Distribution Width 14.1 % (11.0-15.0); White Blood Count 6.7 10^3/uL (4.0-11.0)
[2024-08-02 12:06] LABS: Alanine Aminotransferase 18 U/L (14-59); Albumin Globulin Ratio 1.2; Albumin Level 4.1 g/dL (3.4-5.0); Alkaline Phosphatase 61 U/L (46-116); Aspartate Amino Transferase 11 U/L (15-37); BUN Creatinine Ratio 13.8; Bilirubin Direct 0.1 mg/dL (0.0-0.2); Bilirubin Total 0.4 mg/dL (0.2-1.0); Calcium 9.3 mg/dL (8.5-10.1); Carbon Dioxide 29.2 mmol/L (21.0-32.0); Chloride 103 mmol/L (98-107); Estimated GFR (African America >60 (>=60 mL/min/1.73m^2); Estimated GFR (Non-African Ame >60 (>=60 mL/min/1.73m^2); Globulin 3.5 g/dL; Glucose 102 mg/dL (74-106); Potassium 4.2 mmol/L (3.5-5.1); Sodium 143 mmol/L (136-145); Total Protein 7.6 g/dL (6.4-8.2)
[2024-08-02 12:10] LABS: INR 0.99; Partial Thromboplastin Time 25.4 sec (22.3-36.2); Prothrombin Time 10.5 sec (9.0-11.6)
== END 2024-08-02 10:47 | disposition home or self-care (01) ==
LOC: PST 10:46
PROVIDERS: PCP Family Medicine; Visit Provider Orthopaedic Surgery Orthopaedic Surgery of the Spine
DX: Z01.810 Encounter for preprocedural cardiovascular examination (principal); Z01.812 Encounter for preprocedural laboratory examination; M48.062 Spinal stenosis, lumbar region with neurogenic claudication
CPT/HCPCS: 71046; 80048; 80076; 85025; 85610; 85730; 87081; 93005

== ENCOUNTER 2024-08-19 09:50 | Observation (INO) | payer MEDICAID, SELFPAY ==
[2024-08-02 11:10] VITALS: BP 131/90; PULSE 67; TEMP 36.2; O2SAT 100; BMI 23.0
[2024-08-19] VITALS (18 sets, daily range): BP systolic 102–152; BP diastolic 57–107; PULSE 65–94; TEMP 36.2–36.8; O2SAT 97–100; BMI 23.0; BMI 26.4
--- OUTSIDE RECORDS SUMMARY | 2024-08-19 06:23 | XMS_ITS | CCD ---
Author Organization [facility] Care Team Providers Care Cycle Repairer Name Role Phone RENEE ., DR TONEY Attending Unavailable HOY ., DR TONEY Admitting Unavailable HOY ., DR TONEY Primary Care Unavailable HOY ., DR TONEY Consulting Unavailable HOY ., DR TONEY Admitting Unavailable HOY ., DR TONEY Primary Care Unavailable HOY ., DR TONEY Consulting Unavailable HOY ., DR TONEY Attending Unavailable Terencey Feng VALDEZ Primary Care Provider [phone] HOY, FENG M Primary Care Unavailable YUNIOR THOMAS Attending Unavailable DELFINO THOMAS Admitting Unavailable JELANI BARDALES Consulting Unavailable RENEA PHIPPS Attending Unavailable HOY, FENG M Referring Unavailable HOY, FENG M Primary Care Unavailable JOSE KIM Attending Unavailable HOY, FENG M Referring Unavailable HOY, FENG M Primary Care Unavailable HOY, FENG M Primary Care Unavailable ANDREA TSE Attending Unavailable HOY, FENG M Primary Care Unavailable TK GLEZ Attending Unavailable LEONIDAS JUDD Referring Unavailable HOY, FENG M Primary Care Unavailable HOY, FENG M Primary Care Unavailable THOMASKAYLA Attending Unavailable HOY, FENG M Primary Care Unavailable DELFINO HTOMAS Attending Unavailable SOFIA, SELVON Referring Unavailable HOY, FENG M Primary Care Unavailable NANNETTE DELEON Referring Unavailable HOY, FENG M Primary Care Unavailable DELFINO THOMAS Attending Unavailable DELFINO THOMAS Referring Unavailable HOY, FENG M Primary Care Unavailable HOY, FENG M Referring Unavailable SOFIA, SELVON Referring Unavailable HOY, FENG M Primary Care Unavailable Allergies Allergy Classification Reported Allergen(s) Allergy Type Date of Onset Reaction(s) Facility (1 source) Acetaminophen / HYDROcodone Drug Allergy 11-28-2014 [facility] (6 sources) Acetaminophen / HYDROcodone; Translations: [HYDROCODONE-ACETA MINOPHEN] Drug Allergy 05-10-2021 [facility] Medications Current Medications Medication Drug Class(es) Dates Sig (Normalized) Sig (Original) acetaminophen 325 mg oral tablet (1 source) Start: 06-22-2024 take 1 tablet by mouth every six hours as needed for headache 650 mg, oral, Every 6 hours PRN, headaches, temperature greater than 38.3 C, Starting on Thu06/22/24 at 0301 [id number] 200 actuat albuterol 0.09 mg/actuat metered dose inhaler (4 sources) beta2-Adrenergic Agonist take 2 puff(s) by inhalation every six hours as needed for wheezing albuterol (PROVENTIL HFA;VENTOLIN HFA) 90 mcg/actuation inhaler Inhale 2 puffs every 6 (six) hours as needed for wheezing. Active Budesonide / formoterol (4 sources) Corticosteroid, beta2-Adrenergic Agonist take 2 puff(s) [...] to 4.3 mg/dL, Starting on Thu06/22/24 at 0301, IV [...] use. ferrous sulfate 325 mg oral tablet (4 sources) take 1 tablet by mouth twice [...] 120mg/24 hours. lidocaine 0.05 mg/mg medicated patch (4 sources) Antiarrhythmic, Amide Local Anesthetic Start: 06-22-2024 apply 1 dose transdermal route once daily, then apply 1 dose transdermal route every twelve hours lidocaine (LIDODERM) 5 % Place 1 patch on the skin daily. Remove & Discard patch within 12 hours or as directed by 30 patch 06/22/2024 Active 50 ml magnesium sulfate 40 mg/ml injection (2 sources) Start: 06-22-2024 2,000 mg, intravenous, at 25 mL/hr, Administer [...] mL IVPB tiZANidine 4 mg oral tablet (4 sources) Central alpha-2 Adrenergic Agonist Start: 06-22-2024 take 1 tablet by mouth every six hours as needed tiZANidine (ZANAFLEX) 4 mg tablet Take 1 tablet (4 mg total) by mouth every 6 (six) hours as needed for muscle spasms. 30 tablet 06/22/2024 Active Completed/Discontinued Medications Medication Drug Class(es) Dates Sig [...] Problem Classification Problem Date Documented Date Episodic/Chronic Other connective tissue disease (4 sources) Atrophy of muscle of right thigh; Translations: [Muscle wasting and atrophy, not elsewhere classified, right thigh] 06-22-2024 Episodic Other connective tissue disease (4 sources) Muscle atrophy; Translations: [Muscle wasting and atrophy, not elsewhere classified, unspecified site] Onset: 06-22-2024 06-22-2024 Episodic Other connective tissue disease (3 sources) Muscle wasting and atrophy, not elsewhere classified, right thigh; Translations: [Muscle wasting and atrophy, not elsewhere classified, right thigh] Onset: 06-22-2024 Episodic Other connective tissue disease (2 sources) Neurogenic claudication; Translations: [Other symptoms and signs involving the nervous system] Onset: 07-14-2024 07-14-2024 Episodic Other connective tissue disease (2 sources) Pain in lower limb Onset: 06-18-2024 Episodic Other connective tissue disease (1 source) Repeated falls; Translations: [Repeated falls] Onset: 06-21-2024 Episodic Other connective tissue disease (1 source) Other symptoms and signs involving the musculoskeletal system; Translations: [Other symptoms and signs involving the musculoskeletal system] Onset: 06-21-2024 Episodic Other nervous system disorders (4 sources) Difficulty walking; Translations: [Difficulty in walking, not elsewhere classified] Onset: 06-22-2024 06-22-2024 Chronic Other nervous system disorders (1 source) Difficulty in walking, not elsewhere classified; Translations: [Difficulty in walking, not elsewhere classified] Onset: 06-22-2024 Chronic Other non-traumatic joint disorders (1 source) Hip pain Onset: 06-21-2024 Episodic Other non-traumatic joint disorders (1 source) Pain in right hip; Translations: [Pain in right hip] Onset: 06-18-2024 Episodic Peripheral and visceral atherosclerosis (1 source) Peripheral vascular disease, unspecified; Translations: [Peripheral vascular disease, unspecified] Onset: 07-07-2024 Chronic Spondylosis; intervertebral disc disorders; other back problems (15 sources) Backache; Translations: [Dorsalgia, unspecified] Onset: 06-21-2024 06-22-2024 Episodic Unclassified (1 source) ESOPHAGITIS UNSPEC WITHOUT BLEEDING; Translations: [ESOPHAGITIS UNSPEC WITHOUT BLEEDING] Onset: 09-12-2021 Unclassified (1 source) Abdominal Pain, Vomiting, Diarrhea Onset: 11-23-2023 Past or Other Problems Problem Classification Problem Date Documented Da te Episodic/Chronic Abdominal pain (1 source) Abdominal pain Onset: 04-12-2024 Episodic Gastritis and duodenitis (4 sources) Gastritis, unspecified, without bleeding; Translations: [GASTRITIS UNS WITHOUT BLEEDING] Onset: 09-11-2021 Episodic Mood disorders (3 sources) Mood disorders Onset: 05-10-2021 05-10-2021 Nausea and vomiting (2 sources) Nausea with vomiting, unspecified; Translations: [Vomiting] Onset: 11-23-2023 Episodic Noninfectious gastroenteritis (1 source) Noninfective gastroenteritis and colitis, unspecified; Translations: [Noninfective gastroenteritis and colitis, unspecified] Onset: 04-12-2024 Episodic Other gastrointestinal disorders (1 source) Diarrhea, unspecified; Translations: [Diarrhea, unspecified] Onset: 11-23-2023 Episodic Other gastrointestinal disorders (1 source) Diarrhea Onset: 11-23-2023 Episodic Results Test Name Value Interpretation Reference Range Facility MR THORACIC SPINE WO CONTon 07-05-2024 MR THORACIC SPINE WO CONT MR THORACIC SPINE WO CONT CLINICAL INFORMATION: Atrophy of muscle of right thigh; Trouble walking TECHNIQUE: MR THORACIC SPINE WO CONT Multisequence multiplanar imaging of the thoracic spine was obtained utilizing the routine thoracic protocol. Inversion recovery images show normal bone marrow signal without edema, contusion, fracture. Facets are aligned. Endplates are intact without compression deformity. The disc spaces are preserved without significant desiccation. There is no annular tear or disc herniation. Cord signal character cystic unremarkable. There is no central canal or neural foraminal stenosis. Conus unremarkable. No significant paravertebral soft tissue signal characteristic abnormality. IMPRESSION: Negative exam. Finalized by Han Johnson MD on 07/05/2024 11:07 AM Normal [facility] CREATININEon 06-22-2024 Creatinine [Mass/Vol] 0.72 mg/dL Normal 0.40-1.00 [facility] Comment on above: Result Comment: METH OD TRACEABLE TO IDMI STANDARD Performed By: #### H H, PLTCT, PAINT LINE PRODUCTION SUPERVISOR #### [facility] ([id number]) [address], [address] [place] [address] eGFR (CKD-EPI) NON-RACE DEPENDENT >90 Normal >59 [facility] Comment on above: Result Comment: Reported eGFR is based on the CKD-EPI 2020 equation that does not use a race coefficient. Performed By: #### H H, PLTCT, PAINT LINE PRODUCTION SUPERVISOR #### [facility] ([id number]) [address], [address] [place] [address] Creatinine includes GFR, ser umon 06-22-2024 Creatinine [Mass/Vol] 0.72 mg/dL 0.40 - 1.00 mg/dL [facility] Comment on above: METHOD TRACEABLE TO IDMS STANDARD eGFR (CKD-EPI)non-race dependent - PINF [facility] Comment on above: Reported eGFR is based on the CKD-EPI 2020 equation that does not use a race coefficient. [facility] HGB AND HCTon 06-22-2024 Hematocrit (Bld) [Volume fraction] 33.3 % Low 35-47 [facility] Comment on above: Performed By: #### H H, PLTCT, PAINT LINE PRODUCTION SUPERVISOR #### [facility] ([id number]) [address], [address] [place] [address] Hemoglobin (Bld) [Mass/Vol] 11.3 g/dL Low 11.7-15.5 [facility] Comment on above: Performed By: #### H H, PLTCT, PAINT LINE PRODUCTION SUPERVISOR #### [facility] ([id number]) [address], [address] [place] [address] Hemoglobin and hematocrit, b loodon 06-22-2024 Hematocrit (Bld) [Volume fraction] 33.3 % Low 35 - 47 % [facility] Hemoglobin (Bld) [Mass/Vol] 11.3 g/dL Low 11.7 - 15.5 g/dL [facility] Interpretation and review of laboratory results Abnormal [facility] MR LUMBAR SPINE WO CONTon MR LUMBAR [...] Suhas Kelly MD on 06/22/2024 7:18 AM [facility] MR Lumbar spine WO contrasto n 06-22-2024 [...] Suhas Kelly MD on 06/22/2024 7:18 AM [facility] Suhas Kelly MD - 06/22/2024 LUMBAR SPINE [...] Suhas Kelly MD on 06/22/2024 7:18 AM [facility] Radiology Study observation (narrative) [facility] MR Lumbar spine WO contrastO rdered By: Suhas Kelly on 06-22-2024 [facility] Work Phone: No Panel Informationon 06-22 [facility] PLATELET COUNT AND MPVon Platelet mean volume (Bld) [Entitic vol] 11.3 fL Normal 7-12 [facility] Comment on above: Performed By: #### H H, PLTCT, PAINT LINE PRODUCTION SUPERVISOR #### [facility] ([id number]) [address], [address] [place] [address] Platelets (Bld) [#/Vol] 180 10*3/uL Normal 150-450 [facility] Comment on above: Performed By: #### H H, PLTCT, PAINT LINE PRODUCTION SUPERVISOR #### [facility] ([id number]) [address], [address] [place] [address] Platelet counton 06-22-2024 Platelet mean volume (Bld) [Entitic vol] 11.3 fL 7 - 12 fL [facility] Platelets (Bld) [#/Vol] 180 10*3/uL [facility] CT HIP RT WO CONTon 06-21-20 CT [...] Ralph MD on 06/21/2024 9:59 PM Normal [facility] CT LUMBAR SPINE WO CONTon CT LUMBAR [...] Burleson MD on 06/21/2024 10:04 PM Normal [facility] XR HIP RT 2-3 VIEWS W OR [...] Solorzano MD on 06/18/2024 4:37 AM Normal [facility] XR SPINE LUMBAR 2 OR 3 VWSon [...] Solorzano MD on 06/18/2024 4:37 AM Normal [facility] GI PANELon 04-14-2024 Gastrointestinal pathogens DNA and [...] SAPOVIRUS Not detected (qualifier value) Normal NDET [facility] Comment on above: Performed By: #### C KIMANI CMP, 3039-3 #### [facility] ([id number]) [address] [place] [address] CBC AND AUTO DIFFon 10-15-20 24 ABSOLUTE BASOPHIL 0.0 X10E9/L Normal 0.0-0.2 [facility] Comment on above: Performed By: #### Jairon HARMAN CMP, 3039-3 #### [facility] ([id number]) [address] [place] [address]25[address] ABSOLUTE NEUTROPHIL 9.5 X10E9/L High 1.5-6.6 [facility] Comment on above: Performed By: #### Jairon HARMAN CMP, 3 #### [facility] ([id number]) [address] [place] [address] 16070 Basophils/100 WBC (Bld) 0.2 % Normal [facility] Comment on above: Performed By: #### Jairon HARMAN CMP, 3039-3 #### [facility] ([id number]) [address] [place] [address] 66969 Eosinophils (Bld) [#/Vol] 0.0 10*3/uL Normal 0.0-0.4 [facility] Comment on above: Performed By: #### Jairon HARMAN CMP, 3039-3 #### [facility] ([id number]) [address] [place] [address]78 Eosinophils/100 WBC (Bld) 0.3 % Normal [facility] Comment on above: Performed By: #### Jairon HARMAN CMP, 3039-3 #### [facility] ([id number]) [address] [place] [address] [place] [address] Erythrocyte distribution width (RBC) [Ratio] 15.3 % High 11.5-15.0 [facility] Comment on above: Performed By: #### Jairon HARMAN CMP, 3039-3 #### [facility] ([id number]) [address] [place] [address]69[address] Hematocrit (Bld) [Volume fraction] 38.5 % Normal 35-47 [facility] Comment on above: Performed By: #### Jairon HARMAN, CMP, 3039-3 #### [facility] ([id number]) [address] [place] [address]26 Hemoglobin (Bld) [Mass/Vol] 12.8 g/dL Normal 11.7-15.5 [facility] Comment on above: Performed By: #### Jairon HARMAN CMP, 3039-08 #### [facility] ([id number]) [address] [place] [address]857 Lymphocytes (Bld) [#/Vol] 1.1 10*3/uL Normal 1.0-3.5 [facility] Comment on above: Performed By: #### Jairon HARMAN, CMP, 3039-08 #### [facility] ([id number]) [address] [place] [address] 57943 Lymphocytes/100 WBC (Bld) 9.9 % Normal [facility] Comment on above: Performed By: #### Jairon HARMAN CMP, 3039-08 #### [facility] ([id number]) [address] [place] [address]892 MCH (RBC) [Entitic mass] 27.7 pg Normal 27-34 [facility] Comment on above: Performed By: #### Jairon HARMAN, CMP, 3 #### [facility] ([id number]) [address] [place] [address] 60762 MCHC (RBC) [Mass/Vol] 33.2 g/dL Normal 32-36 [facility] Comment on above: Performed By: #### Jairon HARMAN, CMP, 3039-3 #### [facility] ([id number]) [address] [place] [address] 23109 MCV (RBC) [Entitic vol] 84 fL Normal 80-100 [facility] Comment on above: Performed By: #### Jairon HARMAN CMP, 3039-08 #### [facility] ([id number]) [address] [place] [address] 19670 Monocytes (Bld) [#/Vol] 0.7 10*3/uL Normal 0-0.9 [facility] Comment on above: Performed By: #### Jairon HARMAN CMP, 3039-08 #### [facility] ([id number]) [address] [place] [address] 93036 Monocytes/100 WBC (Bld) 6.2 % Normal [facility] Comment on above: Performed By: #### Jairon HARMAN CMP, 3039-08 #### [facility] ([id number]) [address] [place] [address] 48720 Neutrophils/100 WBC (Bld) 83.4 % Normal [facility] Comment on above: Performed By: #### Jairon HARMAN [facility], 3039-08 #### [facility] ([id number]) [address] [place] [address] 63780 Platelet mean volume (Bld) [Entitic vol] 9.7 fL Normal 7-12 [facility] Comment on above: Performed By: #### Jairon HARMAN CMP, 3039-08 #### [facility] ([id number]) [address] [place] [address] 91308 Platelets (Bld) [#/Vol] 177 10*3/uL Normal 150-450 [facility] Comment on above: Performed By: #### Jairon HARMAN CMP, 3039-08 #### [facility] ([id number]) [address] [place] [address] 16800 RBC COUNT 4.62 X10E12/L Normal 3.80-5.20 [facility] Comment on above: Performed By: #### C BCA, CMP, 0-3 #### [facility] ([id number]) [address] [place] [address] 15436 WBC (Bld) [#/Vol] 11.3 10*3/uL High 4.0-11.0 [facility] Comment on above: Performed By: #### C BCA, CMP, 3039-3 #### [facility] ([id number]) [address] [place] [address]61 COMPREHENSIVE METABOLIC PANE Bill 04-12-2024 Albumin [Mass/Vol] 4.8 g/dL Normal 3.2-5.3 [facility] Comment on above: Performed By: #### C BCA, CMP, 3039-3 #### [facility] ([id number]) [address] [place] [address] 89406 ALP [Catalytic activity/Vol] 51 U/L Normal 39-130 [facility] Comment on above: Performed By: #### C BCA, CMP, 3039-3 #### [facility] ([id number]) [address] [place] [address] 04910 ALT [Catalytic activity/Vol] 14 U/L Normal 0-31 [facility] Comment on above: Performed By: #### C BCA, CMP, 3039-3 #### [facility] ([id number]) [address] [place] [address] 06859 Anion gap [Moles/Vol] 7 mmol/L Normal 5-15 [facility] Comment on above: Performed By: #### C BCA, CMP, 3039-3 #### [facility] ([id number]) [address] [place] [address] 49350 AST [Catalytic activity/Vol] 21 U/L Normal 0-41 [facility] Comment on above: Performed By: #### C BCA, CMP, 3039-3 #### [facility] ([id number]) [address] [place] [address] 50527 Bilirubin [Mass/Vol] 0.4 mg/dL Normal 0.3-1.2 [facility] Comment on above: Performed By: #### C CANDACE HARMAN, 3039-3 #### [facility] ([id number]) [address] [place] [address] 64367 Calcium [Mass/Vol] 9.0 mg/dL Normal 8.5-10.5 [facility] Comment on above: Performed By: #### C CANDACE HARMAN, 3 #### [facility] ([id number]) [address] [place] [address] 00245 Chloride [Moles/Vol] 103 mmol/L Normal 98-109 [facility] Comment on above: Performed By: #### Jairon HARMAN CMP, 3 #### [facility] ([id number]) [address] [place] [address] 01727 CO2 [Moles/Vol] 24 mmol/L Normal 22-32 [facility] Comment on above: Performed By: #### C CANDACE HARMAN, 3 #### [facility] ([id number]) [address] [place] [address] 54759 Creatinine [Mass/Vol] 0.79 mg/dL Normal 0.40-1.00 [facility] Comment on above: Result Comment: METH OD TRACEABLE TO IDMS STANDARD Performed By: #### C CANDACE HARMAN, 3039-3 #### [facility] ([id number]) [address] [place] [address]1954 eGFR (CKD-EPI) NON-RACE DEPENDENT >90 Normal >59 [facility] Comment on above: Result Comment: Reported eGFR is based on the CKD-EPI 2020 equation that does not use a race coefficient. Performed By: #### C CANDACE HARMAN, 3039-3 #### [facility] ([id number]) [address] [place] [address] 35398 Glucose [Mass/Vol] 108 mg/dL High 65-99 [facility] Comment on above: Performed By: #### C KIMANI CMP, 0-3 #### [facility] ([id number]) [address] [place] [address] 64442 Potassium [Moles/Vol] 4.0 mmol/L Normal 3.5-5.0 [facility] Comment on above: Performed By: #### C KIMANI [facility], 0-3 #### [facility] ([id number]) [address] [place] [address] 56850 Protein [Mass/Vol] 7.4 g/dL Normal 6.0-8.0 [facility] Comment on above: Performed By: #### Jairon HARMAN [facility], 3039-3 #### [facility] ([id number]) [address] [place] [address] 02591 Sodium [Moles/Vol] 134 mmol/L Normal 134-146 [facility] Comment on above: Performed By: #### Jairon HARMAN [facility], 3040-3 #### [facility] ([id number]) [address] [place] [address] 96863 Urea nitrogen [Mass/Vol] 13 mg/dL Normal 5-23 [facility] Comment on above: Performed By: #### Jairon HARMAN CMP, 3040-3 #### [facility] ([id number]) [address] [place] [address] ABDOMEN AND PELVIS W CONT on [...] Reyez MD on 04/12/2024 2:35 PM Normal [facility] HCG ( test) Ql (U)o n 04-12-2024 Beta HCG ( test) Ql (U) Negative Normal NEG [facility] Comment on above: Performed By: #### 2 106-3 #### [facility] ([id number]) [address] [place] [address] 87683 LIPASEon 04-12-2024 Lipase [Catalytic activity/Vol] 34 U/L Normal 17-40 [facility] Comment on above: Performed By: #### C BCA, CMP, 3040-3 #### [facility] ([id number]) [address] [place] [address] 25204 URN MACROSCOPIC NURon 2023 BILIRUBIN ROSA MARIA Negative Normal NEG [facility] Comment on above: Performed By: #### N UM #### [facility] ([id number]) [address] [place] [address] 38851 BLOOD/HGB ROSA MARIA MODERATE Abnormal NEG [facility] Comment on above: Performed By: #### N UM #### [facility] ([id number]) [address] [place] [address] 19659 GLUCOSE ROSA MARIA Negative Normal NEG [facility] Comment on above: Performed By: #### N UM #### [facility] ([id number]) [address] [place] [address], [place] [address] KETONES ROSA MARIA Negative Normal NEG [facility] Comment on above: Performed By: #### N UM #### [facility] ([id number]) [address] [place] [address], [place] [address] LEUKOCYTE ESTERASE ROSA MARIA Negative Normal NEG [facility] Comment on above: Performed By: #### N UM #### [facility] ([id number]) [address] [place] [address], [place] [address] NITRITE ROSA MARIA Negative Normal NEG [facility] Comment on above: Performed By: #### N UM #### [facility] ([id number]) [address] [place] [address] [place] [address] PH ROSA MARIA 5.5 Normal 5.0-8.5 [facility] Comment on above: Performed By: #### N UM #### [facility] ([id number]) [address] [place] [address], [place] [address] PROTEIN ROSA MARIA Negative Normal NEG [facility] Comment on above: Performed By: #### N UM #### [facility] ([id number]) [address] [place] [address], [place] [address] SPECIFIC GRAVITY ROSA MARIA 1.025 Normal 1.003-1.035 [facility] Comment on above: Performed By: #### N UM #### [facility] ([id number]) [address] [place] [address], [place] [address] UROBILINOGEN ROSA MARIA 0.2 eu/dL Normal <1.1 [facility] Comment on above: Performed By: #### N UM #### [facility] ([id number]) [address] [place] [address], [place] [address] CBC AND AUTO DIFFon 11-23-19 24 ABSOLUTE BASOPHIL 0.0 X10E9/L Normal 0.0-0.2 [facility] Comment on above: Performed By: #### Jairon HARMAN CMP, 3039-08 #### [facility] ([id number]) [address] [place] [address] 01798 ABSOLUTE NEUTROPHIL 4.3 X10E9/L Normal 1.5-6.6 [facility] Comment on above: Performed By: #### Jairon HARMAN CMP, 3039-3 #### [facility] ([id number]) [address] [place] [address] 98580 Basophils/100 WBC (Bld) 0.7 % Normal [facility] Comment on above: Performed By: #### Jiaron HARMAN CMP, 3039-08 #### [facility] ([id number]) [address] [place] [address] 69607 Eosinophils (Bld) [#/Vol] 0.1 10*3/uL Normal 0.0-0.4 [facility] Comment on above: Performed By: #### Jiaron HARMAN CMP, 3039-08 #### [facility] ([id number]) [address] [place] [address] 93374 Eosinophils/100 WBC (Bld) 1.3 % Normal [facility] Comment on above: Performed By: #### Jairon HARMAN CMP, 3039-08 #### [facility] ([id number]) [address] [place] [address] 95671 Erythrocyte distribution width (RBC) [Ratio] 14.1 % Normal 11.5-15.0 [facility] [facility] Comment on above: Performed By: #### Jairon HARMAN CMP, 3 #### [facility] ([id number]) [address] [place] [address] 37732 Hematocrit (Bld) [Volume fraction] 35.1 % Normal 35-47 [facility] Comment on above: Performed By: #### Jairon HARMAN CMP, 3039-3 #### [facility] ([id number]) [address] [place] [address] 98048 Hemoglobin (Bld) [Mass/Vol] 12.4 g/dL Normal 11.7-15.5 [facility] Comment on above: Performed By: #### Jairon HARMAN CMP, 0-3 #### [facility] ([id number]) [address] [place] [address] 24900 Lymphocytes (Bld) [#/Vol] 1.1 10*3/uL Normal 1.0-3.5 [facility] Comment on above: Performed By: #### Jairon HARMAN CMP, 3 #### [facility] ([id number]) [address] [place] [address] 58972 Lymphocytes/100 WBC (Bld) 18.5 % Normal [facility] Comment on above: Performed By: #### Jairon HARMAN CMP, 3 #### [facility] ([id number]) [address] [place] [address] 94434 MCH (RBC) [Entitic mass] 29.7 pg Normal 27-34 [facility] Comment on above: Performed By: #### Jairon HARMAN CMP, 3 #### [facility] ([id number]) [address] [place] [address] 69301 MCHC (RBC) [Mass/Vol] 35.3 g/dL Normal 32-36 [facility] Comment on above: Performed By: #### Jairon HARMAN CMP, 3 #### [facility] ([id number]) [address] [place] [address] 13122 MCV (RBC) [Entitic vol] 84 fL Normal 80-100 [facility] Comment on above: Performed By: #### Jairon HARMAN CMP, 3039-3 #### [facility] ([id number]) [address] [place] [address] 75241 Monocytes (Bld) [#/Vol] 0.6 10*3/uL Normal 0-0.9 [facility] Comment on above: Performed By: #### Jairon HARMAN CMP, 3040-3 #### [facility] ([id number]) [address] [place] [address] 00779 Monocytes/100 WBC (Bld) 10.3 % Normal [facility] Comment on above: Performed By: #### Jairon HARMAN CMP, 3039-08 #### [facility] ([id number]) [address] [place] [address] 63908 Neutrophils/100 WBC (Bld) 69.2 % Normal [facility] Comment on above: Performed By: #### Jairon HARMAN CMP, 3039-08 #### [facility] ([id number]) [address] [place] [address] 63308 Platelet mean volume (Bld) [Entitic vol] 9.8 fL Normal 7-12 [facility] Comment on above: Performed By: #### Jairon HARMAN CMP, 3039-08 #### [facility] ([id number]) [address] [place] [address] 24409 Platelets (Bld) [#/Vol] 160 10*3/uL Normal 150-450 [facility] Comment on above: Performed By: #### Jairon HARMAN CMP, 3039-08 #### [facility] ([id number]) [address] [place] [address] 56799 RBC COUNT 4.17 X10E12/L Normal 3.80-5.20 [facility] Comment on above: Performed By: #### Jairon HARMAN CMP, 3039-08 #### [facility] ([id number]) [address] [place] [address] 96813 WBC (Bld) [#/Vol] 6.2 10*3/uL Normal 4.0-11.0 [facility] Comment on above: Performed By: #### C BCA, CMP, 3039-3 #### [facility] ([id number]) [address] [place] [address] 73971 COMPREHENSIVE METABOLIC PANE Bill 11-23-2023 Albumin [Mass/Vol] 4.2 g/dL Normal 3.2-5.3 [facility] Comment on above: Performed By: #### C BCA, CMP, 3039-3 #### [facility] ([id number]) [address] [place] [address] 21213 ALP [Catalytic activity/Vol] 50 U/L Normal 39-130 [facility] Comment on above: Performed By: #### C BCA, CMP, 3039-3 #### [facility] ([id number]) [address] [place] [address] 27150 ALT [Catalytic activity/Vol] 18 U/L Normal 0-31 [facility] Comment on above: Performed By: #### C BCA, CMP, 3039-3 #### [facility] ([id number]) [address] [place] [address] 79560 Anion gap [Moles/Vol] 5 mmol/L Normal 5-15 [facility] Comment on above: Performed By: #### Jairon BCA, CMP, 3039-3 #### [facility] ([id number]) [address] [place] [address] 25445 AST [Catalytic activity/Vol] 20 U/L Normal 0-41 [facility] Comment on above: Performed By: #### C BCA, CMP, 3039-3 #### [facility] ([id number]) [address] [place] [address] 24624 Bilirubin [Mass/Vol] 0.2 mg/dL Low 0.3-1.2 [facility] Comment on above: Performed By: #### C BCA, CMP, 3039-3 #### [facility] ([id number]) [address] [place] [address] 04161 Calcium [Mass/Vol] 8.8 mg/dL Normal 8.5-10.5 [facility] Comment on above: Performed By: #### C CANDACE HARMAN, 3040-3 #### [facility] ([id number]) [address] [place] [address] 64167 Chloride [Moles/Vol] 104 mmol/L Normal 98-109 [facility] Comment on above: Performed By: #### C CANDACE HARMAN, 3039-3 #### [facility] ([id number]) [address] [place] [address] 64671 CO2 [Moles/Vol] 25 mmol/L Normal 22-32 [facility] Comment on above: Performed By: #### Jairon HARMAN CMP, 3039-3 #### [facility] ([id number]) [address] [place] [address] 20990 Creatinine [Mass/Vol] 0.63 mg/dL Normal 0.40-1.00 [facility] Comment on above: Result Comment: METH OD TRACEABLE TO IDMS STANDARD Performed By: #### C CANDACE HARMAN, 0-3 #### [facility] ([id number]) [address] [place] [address] 87698 eGFR (CKD-EPI) NON-RACE DEPENDENT >90 Normal >59 [facility] Comment on above: Result Comment: Reported eGFR is based on the CKD-EPI 2021 equation that does not use a race coefficient. Performed By: #### C CANDACE HARMAN, 0-3 #### [facility] ([id number]) [address] [place] [address] 82726 Glucose [Mass/Vol] 116 mg/dL High 65-99 [facility] Comment on above: Performed By: #### C CANDACE HARMAN, 0-3 #### [facility] ([id number]) [address] [place] [address] 76517 Potassium [Moles/Vol] 3.8 mmol/L Normal 3.5-5.0 [facility] Comment on above: Performed By: #### C CANDACE HARMAN, 3040-3 #### [facility] ([id number]) [address] [place] [address] 65041 Protein [Mass/Vol] 6.7 g/dL Normal 6.0-8.0 [facility] Comment on above: Performed By: #### C CANDACE HARMAN, 3039-3 #### [facility] ([id number]) [address] [place] [address] 75526 Sodium [Moles/Vol] 134 mmol/L Normal 134-146 [facility] Comment on above: Performed By: #### Jairon HARMAN CMP, 3039-3 #### [facility] ([id number]) [address] [place] [address] 39863 Urea nitrogen [Mass/Vol] 10 mg/dL Normal 5-23 [facility] Comment on above: Performed By: #### C CANDACE HARMAN, 3039-3 #### [facility] ([id number]) [address] [place] [address] 23331 HCG ( test) Ql (U)o n 11-23-2023 Beta HCG ( test) Ql (U) Negative Normal NEG [facility] Comment on above: Performed By: #### 2 106-3 #### [facility] ([id number]) [address] [place] [address] 29533 LIPASEon 11-23-2023 Lipase [Catalytic activity/Vol] 49 U/L High 17-40 [facility] Comment on above: Performed By: #### C KIMANI CMP, 0-3 #### [facility] ([id number]) [address] [place] [address] 95971 URN MACROSCOPIC NURon 2023 BILIRUBIN ROSA MARIA Negative Normal NEG [facility] Comment on above: Performed By: #### N UM #### [facility] ([id number]) [address] [place] [address] [place] [address] BLOOD/HGB ROSA MARIA Negative Normal NEG [facility] Comment on above: Performed By: #### N UM #### [facility] ([id number]) [address] [place] [address] [place] [address] GLUCOSE ROSA MARIA Negative Normal NEG [facility] Comment on above: Performed By: #### N UM #### [facility] ([id number]) [address] [place] [address] [place] [address] KETONES ROSA MARIA Negative Normal NEG [facility] Comment on above: Performed By: #### N UM #### [facility] ([id number]) [address] [place] [address] [place] [address] LEUKOCYTE ESTERASE ROSA MARIA Negative Normal NEG [facility] Comment on above: Performed By: #### N UM #### [facility] ([id number]) [address] [place] [address] [place] [address] NITRITE ROSA MARIA Negative Normal NEG [facility] Comment on above: Performed By: #### N UM #### [facility] ([id number]) [address] [place] [address] [place] [address] PH ROSA MARIA 7.0 Normal 5.0-8.5 [facility] Comment on above: Performed By: #### N UM #### [facility] ([id number]) [address] [place] [address] 82071 PROTEIN ROSA MARIA Negative Normal NEG [facility] Comment on above: Performed By: #### N UM #### [facility] ([id number]) [address] [place] [address] [place] [address] SPECIFIC GRAVITY ROSA MARIA 1.010 Normal 1.003-1.035 [facility] Comment on above: Performed By: #### N UM #### [facility] ([id number]) [address] [place] [address] 74753 UROBILINOGEN ROSA MARIA 0.2 eu/dL Normal <1.1 [facility] Comment on above: Performed By: #### N UM #### [facility] ([id number]) [address] [place] [address] 23917 H PYLORI ANTIBODY IGGon 06-30 H. PYLORI IGG ABS 0.46 Index Value Normal 0.00-0.79 [facility] Comment on above: Result Comment: Nega tive <0.80 Equivocal 0.80 - 0.89 Positive >0.89 Performed By: #### H PYLLC #### [facility] [address] [place] [address] Dr. Donna Cornejo AMYLASEon 07-21-2022 Amylase [Catalytic activity/Vol] 83 U/L Normal 25-115 [facility] Comment on above: Performed By: #### A MY, CMP, LIPA, LIPID, T7, TSH #### [facility] [address] [place] [address] Dr. Donna Cornejo CBC AUTO DIFFon 07-21-2022 BASO # 0.0 103/ul Normal 0.0-0.1 [facility] Comment on above: Performed By: #### C BC #### [facility] [address] [place] [address] Dr. Donna Cornejo Basophils/100 WBC (Bld) 0.5 % Normal 0.2-2.0 [facility] Comment on above: Performed By: #### C BC #### [facility] [address] [place] [address] Dr. Donna Cornejo EO # 0.1 103/ul Normal 0.0-0.7 [facility] Comment on above: Performed By: #### C BC #### [facility] [address] [place] [address] Dr. Donna Cornejo Eosinophils/100 WBC (Bld) 1.7 % Normal 0.9-7.0 [facility] Comment on above: Performed By: #### C BC #### [facility] [address] [place] [address] Dr. Donna Cornejo Erythrocyte distribution width (RBC) [Ratio] 13.4 % Normal 11.0-15.0 [facility] Comment on above: Performed By: #### C BC #### [facility] [address] [place] [address] Dr. Donna Cornejo Hematocrit (Bld) [Volume fraction] 37.4 % Normal 36.0-48.0 [facility] Comment on above: Performed By: #### C BC #### [facility] [address] [place] [address] Dr. Donna Cornejo Hemoglobin (Bld) [Mass/Vol] 13.1 g/dL Normal 12.0-16.0 [facility] Comment on above: Performed By: #### C BC #### [facility] [address] [place] [address] Dr. Donna Cornejo IG # 0.01 10e3/ul Normal 0.00-0.03 [facility] Comment on above: Performed By: #### C BC #### [facility] [address] [place] [address] Dr. Donna Cornejo IG % 0.2 % Normal 0.0-0.5 [facility] Comment on above: Performed By: #### C BC #### [facility] [address] [place] [address] Dr. Donna Cornejo LYMPH # 2.5 103/ul Normal 1.2-3.8 [facility] Comment on above: Performed By: #### C BC #### [facility] [address] [place] [address] Dr. Donna Cornejo Lymphocytes/100 WBC (Bld) 41.8 % Normal 20.5-60.0 [facility] Comment on above: Performed By: #### C BC #### [facility] [address] [place] [address] Dr. Donna Cornejo MANUAL DIFF REQ NO Normal [facility] Comment on above: Performed By: #### C BC #### [facility] [address] [address] [address] Donna Cornejo MCH (RBC) [Entitic mass] 28.0 pg Normal 26.7-34.0 [facility] Comment on above: Performed By: #### C BC #### [facility] [address] [place] [address] Dr. Donna Cornejo MCHC (RBC) [Mass/Vol] 35.0 g/dL Normal 29.9-35.2 [facility] Comment on above: Performed By: #### C BC #### [facility] [address] [place] [address] Dr. Donna Cornejo MCV (RBC) [Entitic vol] 79.9 fL Critically low 81.0-99.0 [facility] Comment on above: Performed By: #### C BC #### [facility] [address] [place] [address] Dr. Donna Cornejo MONO # 0.5 103/ul Normal 0.3-0.8 [facility] Comment on above: Performed By: #### C BC #### [facility] [address] [place] [address] Dr. Donna Cornejo Monocytes/100 WBC (Bld) 8.5 % Normal 1.7-12.0 [facility] Comment on above: Performed By: #### C BC #### [facility] [address] [place] [address] Dr. Donna Cornejo NEUT # 2.8 103/ul Normal 1.4-6.5 [facility] Comment on above: Performed By: #### C BC #### [facility] [address] [place] [address] Dr. Donna Cornejo Neutrophils/100 WBC (Bld) 47.3 % Normal 43.0-75.0 [facility] Comment on above: Performed By: #### C BC #### [facility] [address] [place] [address] Dr. Donna Cornejo Platelet mean volume (Bld) [Entitic vol] 11.1 fL Normal 9.5-13.5 [facility] Comment on above: Performed By: #### C BC #### [facility] [address] [address] [address] Donna Cornejo PLT 187 103/ul Normal 150-450 [facility] Comment on above: Performed By: #### C BC #### [facility] [address] [address] [address] Donna Cornejo RBC 4.68 106/ul Normal 4.20-5.40 [facility] Comment on above: Performed By: #### C BC #### [facility] [address] [place] [address] Dr. Donna Cornejo WBC 6.0 103/ul Normal 4.0-11.0 [facility] Comment on above: Performed By: #### C BC #### [facility] [address] [place] [address] Dr. Donna Cornejo FREE THYROXINE INDEX T7on FTI 3.17 Normal 1.30-4.50 [facility] Comment on above: Performed By: #### A MY, CMP, LIPA, LIPID, T7, TSH #### [facility] [address] [place] [address] Dr. Donna Cornejo T3U 36.0 % Normal 30.0-39.0 [facility] Comment on above: Performed By: #### A MY, CMP, LIPA, LIPID, T7, TSH #### [facility] [address] [place] [address] Dr. Donna Cornejo T4 [Mass/Vol] 8.80 ug/dL Normal 4.80-13.90 [facility] Comment on above: Performed By: #### A MY, CMP, LIPA, LIPID, T7, TSH #### [facility] [address] [place] [address] Dr. Donna Cornejo GLYCOHEMOGLOBIN A1Con 2022 ADA RECOMMENDATION SEE BELOW Normal [facility] Comment on above: Result Comment: ADA RECOMMENDED LIMIT 4.0 - 6.0 ADA THERAPEUTIC TARGET < 7.0 ACTION SUGGESTED > 7.0 Performed By: #### A 1C #### [facility] [address] [address] [address] Donna Cornejo Glucose [Mass/Vol] 114 mg/dL Normal [facility] Comment on above: Performed By: #### A 1C #### [facility] [address] [address] [address] Donna Cornejo HbA1c (Bld) [Mass fraction] 5.6 % Normal 4.5-6.2 [facility] Comment on above: Performed By: #### A 1C #### [facility] [address] [address] [address] Donna Cornejo IRONon 07-21-2022 Iron [Mass/Vol] 55.0 ug/dL Normal 50.0-170.0 [facility] Comment on above: Performed By: #### I JENNA #### [facility] [address] [place] [address] Dr. Donna Cornejo LIPASEon 07-21-2022 Lipase [Catalytic activity/Vol] 181.0 U/L Normal 73.0-393.0 [facility] Comment on above: Performed By: #### A MY, CMP, LIPA, LIPID, T7, TSH #### [facility] [address] [place] [address] Dr. Donna Cornejo LIPID PROFILEon 07-21-2022 CHOL-HDL RATIO NORM SEE BELOW Normal [facility] Comment on above: Result Comment: 3.3 - 4.4 LOW RISK 4.4 - 7.1 AVERAGE RISK 7.1 - 11.0 MODERATE RISK >11.0 HIGH RISK Performed By: #### A MY, CMP, LIPA, LIPID, T7, TSH #### [facility] [address] [address] [address] Donna Cornejo Cholesterol [Mass/Vol] 138 mg/dL Normal <=200 [facility] Comment on above: Performed By: #### A MY, CMP, LIPA, LIPID, T7, TSH #### [facility] [address] [address] [address] Donna Cornejo Cholesterol in HDL [Mass/Vol] 53 mg/dL Normal 40-60 [facility] Comment on above: Performed By: #### A MY, CMP, LIPA, LIPID, T7, TSH #### [facility] [address] [address] [address] Donna Cornejo Cholesterol in LDL [Mass/Vol] 73.0 mg/dL Normal [facility] Comment on above: Performed By: #### A MY, CMP, LIPA, LIPID, T7, TSH #### [facility] [address] [address] [address] Donna Cornejo Cholesterol.total/ Cholesterol in HDL [Mass ratio] 2.6 {ratio} Normal [facility] Comment on above: Performed By: #### A MY, CMP, LIPA, LIPID, T7, TSH #### [facility] [address] [address] [address] Donna Cornejo HDL NORMAL > or = 60 mg/dl - LO W CARDIOVASCULAR RISK <40 mg/dl - HIGH CARDIOVASCULAR RISK Normal [facility] Comment on above: Performed By: #### A MY, CMP, LIPA, LIPID, T7, TSH #### [facility] [address] [address] [address] Donna Cornejo LDL CALC NORMAL SEE BELOW Normal [facility] Comment on above: Result Comment: <100 mg/dl OPTIMAL 100 - 129 mg/dl NEAR OR ABOVE OPTIMAL 130 - 159 mg/dl BORDERLINE HIGH 160 - 189 mg/dl HIGH >190 mg/dl VERY HIGH Performed By: #### A MY, CMP, LIPA, LIPID, T7, TSH #### [facility] [address] [address] [address] Donna Cornejo Triglyceride [Mass/Vol] 60 mg/dL Normal <=150 [facility] Comment on above: Performed By: #### A MY, CMP, LIPA, LIPID, T7, TSH #### [facility] [address] [address] [address] Donna Cornejo VLDL CALC 12.0 mg/dL Normal [facility] Comment on above: Performed By: #### A MY, CMP, LIPA, LIPID, T7, TSH #### [facility] [address] [address] [address] Donna Cornejo PROF 14(COMP METB)on 023 Albumin [Mass/Vol] 4.2 g/dL Normal 3.4-5.0 [facility] Comment on above: Performed By: #### A MY, CMP, LIPA, LIPID, T7, TSH #### [facility] [address] [place] [address] Dr. Donna Cornejo Albumin/Globulin [Mass ratio] 1.4 {ratio} Normal [facility] Comment on above: Performed By: #### A MY, CMP, LIPA, LIPID, T7, TSH #### [facility] [address] [address] [address] Donna Cornejo ALP [Catalytic activity/Vol] 57 U/L Normal 46-116 [facility] Comment on above: Performed By: #### A MY, CMP, LIPA, LIPID, T7, TSH #### [facility] [address] [place] [address] Dr. Donna Cornejo ALT [Catalytic activity/Vol] 16 U/L Normal 14-59 [facility] Comment on above: Performed By: #### A MY, CMP, LIPA, LIPID, T7, TSH #### [facility] [address] [place] [address] Dr. Donna Cornejo Anion gap [Moles/Vol] 15.5 mmol/L Normal [facility] Comment on above: Performed By: #### A MY, CMP, LIPA, LIPID, T7, TSH #### [facility] [address] [address] [address] Donna Cornejo AST [Catalytic activity/Vol] 17 U/L Normal 15-37 [facility] Comment on above: Performed By: #### A MY, CMP, LIPA, LIPID, T7, TSH #### [facility] [address] [address] [address] Donna Cornejo Bilirubin [Mass/Vol] 0.3 mg/dL Normal 0.2-1.0 [facility] Comment on above: Performed By: #### A MY, CMP, LIPA, LIPID, T7, TSH #### [facility] [address] [address] [address] Donna Cornejo Calcium [Mass/Vol] 9.5 mg/dL Normal 8.5-10.1 [facility] Comment on above: Performed By: #### A MY, CMP, LIPA, LIPID, T7, TSH #### [facility] [address] [address] [address] Donna Cornejo Chloride [Moles/Vol] 102 mmol/L Normal 98-107 [facility] Comment on above: Performed By: #### A MY, CMP, LIPA, LIPID, T7, TSH #### [facility] [address] [address] [address] Donna Cornejo CO2 [Moles/Vol] 24.7 mmol/L Normal 21.0-32.0 [facility] Comment on above: Performed By: #### A MY, CMP, LIPA, LIPID, T7, TSH #### [facility] [address] [address] [address] Donna Cornejo Creatinine [Mass/Vol] 0.76 mg/dL Normal 0.55-1.02 [facility] Comment on above: Performed By: #### A MY, CMP, LIPA, LIPID, T7, TSH #### [facility] [address] [address] [address] Donna Cornejo EGFR-AF CYMRO >60 Normal >=60 [facility] Comment on above: Performed By: #### A MY, CMP, LIPA, LIPID, T7, TSH #### [facility] [address] [address] [address] Donna Cornejo EGFR-NON AF CYMRO >60 Normal >=60 [facility] Comment on above: Performed By: #### A MY, CMP, LIPA, LIPID, T7, TSH #### [facility] [address] [address] [address] Donna Cornejo Globulin (S) [Mass/Vol] 3.0 g/dL Normal [facility] Comment on above: Performed By: #### A MY, CMP, LIPA, LIPID, T7, TSH #### [facility] [address] [address] [address] Donna Cornejo Glucose [Mass/Vol] 109 mg/dL Critically high 74-106 [facility] Comment on above: Performed By: #### A MY, CMP, LIPA, LIPID, T7, TSH #### [facility] [address] [place] [address] Dr. Donna Cornejo Potassium [Moles/Vol] 4.2 mmol/L Normal 3.5-5.1 [facility] Comment on above: Performed By: #### A MY, CMP, LIPA, LIPID, T7, TSH #### [facility] [address] [place] [address] Dr. Donna Cornejo Protein [Mass/Vol] 7.2 g/dL Normal 6.4-8.2 [facility] Comment on above: Performed By: #### A MY, CMP, LIPA, LIPID, T7, TSH #### [facility] [address] [place] [address] Dr. Donna Cornejo Sodium [Moles/Vol] 138 mmol/L Normal 136-145 [facility] Comment on above: Performed By: #### A MY, CMP, LIPA, LIPID, T7, TSH #### [facility] [address] [place] [address] Dr. Donna Cornejo Urea nitrogen [Mass/Vol] 11.0 mg/dL Normal 7.0-18.0 [facility] Comment on above: Performed By: #### A MY, CMP, LIPA, LIPID, T7, TSH #### [facility] [address] [place] [address] Dr. Donna Cornejo Urea nitrogen/Creatinin e [Mass ratio] 14.5 mg/mg Normal [facility] Comment on above: Performed By: #### A MY, CMP, LIPA, LIPID, T7, TSH #### [facility] [address] [place] [address] Dr. Donna Cornejo TSHon 07-21-2022 TSH 1.608 uIU/mL Normal 0.358-3.740 [facility] Comment on above: Performed By: #### A MY, CMP, LIPA, LIPID, T7, TSH #### [facility] [address] [place] [address] Dr. Donna Cornejo General Surgery Office/Clini c [...] low FODMAP diet; may need to see transfusion nurse about possible food allergies; call with problems/questions. [...] inactivated - Not Given Patient Refuses Normal [facility] Comment on above: Result Comment: Elec tronically [...] Postprandial abdominal bloating Seasonal allergic rhinitis Normal [facility] Pathology Noteon 08-25-2021 Pathology Note [id number]:127 Normal [facility] Operative Reporton Operative Report [id number]:127 Normal [facility] Consent for Procedure/Surger yon 08-07-2021 Consent for Procedure/Surgery [id number]:127 Normal [facility] Ambulatory Visit Summaryon 0 08-06-2021 Ambulatory Visit [...] disc disease Migraine Seasonal allergic rhinitis Normal [facility] Physician Referralon 022 Physician Referral [id number]:127 Normal [facility] Vital Signs Date Time Vital Sign Value Performing Clinician Faci lity 06-27-2024 14:53-0500 Body mass index (BMI) [Ratio] 20.14 kg/m2 Renea Phipps MD Work Phone: [facility] 06-27-2024 14:53-0500 Body weight 54.88 kg Renea Phipps MD Work Phone: [facility] 06-27-2024 14:53-0500 Diastolic blood pressure 78 mm[Hg] Renea Phipps MD Work Phone: [facility] [email or web address] 06-27-2024 14:53-0500 Heart rate 87 /min Renea Phipps MD Work Phone: [facility] 06-27-2024 14:53-0500 Systolic blood pressure 126 mm[Hg] Renea Phipps MD Work Phone: [facility] [email or web address] 06-22-2024 11:43-0500 Body temperature 98.1 [degF] Delfino Thomas DO Work Phone: [facility] 06-22-2024 11:43-0500 Diastolic blood pressure 64 mm[Hg] Delfino Thomas DO Work Phone: [facility] 06-22-2024 11:43-0500 Heart rate 75 /min Delfino Thomas DO Work Phone: [facility] 06-22-2024 11:43-0500 Respiratory rate 18 /min Delfino Thomas DO Work Phone: [facility] 06-22-2024 11:43-0500 SaO2% (BldA) [Mass fraction] 98 % Delfino Thomas DO Work Phone: [facility] 06-22-2024 11:43-0500 Systolic blood pressure 109 mm[Hg] Delfino Thomas DO Work Phone: [facility] 06-22-2024 04:13-0500 Body height 165.1 cm Delfino Faustino GLOVER Work Phone: [facility] 06-22-2024 04:13-0500 Body mass index (BMI) [Ratio] 19.64 kg/m2 Delfino Thomas DO Work Phone: [facility] 06-22-2024 04:050 Body weight 53.52 kg Delfino Thomas DO Work Phone: [facility] Encounters Encounter Date Encounter Type Care Provider Facility Start: 08-01-2024 ambulatory [facility] Start: 07-14-2024 End: 07-14-2024 Office outpatient visit 15 minutes Jose Kim MD Work Phone: [facility] Comment on above: Neurogenic claudicat ion (Primary Dx) Start: 07-14-2024 End: 07-14-2024 ambulatory [facility]io [facility] Start: 07-07-2024 End: 07-07-2024 ambulatory DELFINO Ye [facility] Start: 07-05-2024 End: [facility]-05[facility]: 07-01-2024 ambulatory [facility] Start: 06-27-2024 End: 06-27-2024 Office outpatient new 45 minutes Renea Phipps MD Work Phone: [facility] Comment on above: Back pain; Atrophy of muscle of right thigh Start: 06-27-2024 End: 06-27-2024 [facility] Start: 06-22-2024 End: 06-22-[address] [facility] Start: 06-21-2024 End: 06-22-2024 Emergency department patient visit Yunior Thomas MD Work Phone: [facility] Comment on above: Back pain (Primary D x); Atrophy of muscle of right thigh Start: 06-18-2024 End: 06-18-2024 Emergency department patient visit [facility] Start: 04-14-2024 End: 04-14-2024 ambulatory LEONIDAS JUDD [facility] Start: 04-12-2024 End: 04-12-2024 Emergency department patient visit FENG GREENBERG [facility] Start: 11-23-2023 End: 11-23-2023 Emergency department patient visit FENG GREENBERG [facility] Start: 07-23-2022 Encounter for genera l adult medical examination without abnormal findings DR FENG GREENBERG . [facility] Start: 07-21-2022 End: 07-22-[address] FENG GREENBERG . Facility: Start: 07-21-2022 End: 07-22-2022 Encounter for general adult medical examination without abnormal findings DR FENG GREENBERG . Facility: Start: 09-11-2021 End: 09-12-[address] FENG GREENBERG . Facility: Procedures Date Procedure Procedure Detail Performing Clinician Start: 07-14-2024 Follow-up visit Follow-up JOSE KIM Start: 06-22-2024 Mri spinal canal lum bar w/o contrast material Pj Daviskathryn DO Work Phone: Start: 06-22-2024 Creatinine blood Xavier Sarabia DO Work Phone: Plan of Treatment Date Care Activity Detail Author Start: 12-18-2025 DTaP,Tdap and Td Vaccines (9 - Td or Tdap) DTaP,Tdap and Td Vaccines (9 - Td or Tdap) [facility] Start: 06-27-2025 Adult BMI Screening Adult BMI Screen ing [facility] Start: 06-27-2025 Tobacco Screening Tobacco Screening [facility] Start: 07-14-2024 End: 07-14-2024 Patient encounter procedure 07/14/2024 2:10 PM EST Office Visit [facility] [place] [address] Jose Kim MD [address], [address] [address] [facility] Start: 07-07-2024 End: 07-07-2024 Patient encounter procedure 07/07/2024 3:30 PM EST Appointment [facility] [address] [place] [address] Delfino Thomas, DO [address] [place] [address] [facility] Start: 07-05-2024 End: 07-05-2024 Patient encounter procedure 07/05/2024 10:45 AM EST Appointment [facility] [address] [place] [address] [facility] Start: 06-22-2024 End: 06-22-2025 US.doppler Lower extremity artery - bilateral Vas art duplex lwr bilateral Vascular Ultrasound Routine Back pain Atrophy of muscle of right thigh Expected: 06/22/2024, Expires: 06/22/2025 [employer] Work Phone: Comment on above: Expected: 06/22/2024 , Expires: 06/22/2025 Start: 02-28-2024 Influenza vaccination Influenza Vacc ine [facility] Start: 01-22-2012 Screening for malign ant neoplasm of cervix Pap Smear [facility] Start: 2003 Depression Screening Depression Scre ening [facility] Oxygen Therapy - Maintain SpO2: 90%; *NURSE GENERAL DUTY Guidelines for O2: Yes; Document: \[email or web address]\epi c\EPIC_Reference\Orders\ Respiratory Care Guidelines\CPG Oxygen 2022.pdf Oxygen Therapy - Maintain SpO2: 90%; *NURSE GENERAL DUTY Guidelines for O2: Yes; Document: \phsi.J Kumar [email or web address]\ep ic\EPIC_Reference\Order s\Respiratory Care Guidelines\CPG Oxygen 2022.pdf Respiratory Care Routine As Needed until discontinued starting 06/22/2024 [employer] Work Phone: Comment on above: As Needed until disc ontinued starting 06/22/2024 Payers Date Payer Category Payer Medicaid [employer] [id number] 1991 Unknown [id number] 1991 Unknown [id number] [id number] 1991 Unknown [id number] [id number] 1991 Unknown [id number] [id number] 1991 Unknown [id number] [id number] 1991 Unknown [id number] [id number] 1991 Unknown [id number] [id number] 1991 Unknown [id number] [id number] 1991 Unknown [id number] [id number] 1991 Unknown [id number] [id number] 1991 Unknown [id number] [id number] 1991 Unknown [id number] [id number] 1991 Unknown [id number] [id number] 1991 Unknown [id number] [id number] 1991 Unknown [id number] [id number] 1958 Medicaid [id number] 1959 Unknown [id number] Social History Date Type Detail Facility Start: [facility]-23-2023 [facility] History of tobacco use Current smoker [facility] History of tobacco use Cigarette Smoker P [facility] Start: 11-23-2023 Tobacco use and exposure Smokeless tobacco non-user [facility] Start: 06-21-2024 End: 07-14-2024 Alcoholic beverage intake Lifetime non-drinker (finding) [facility] Start: 08-09-2020 End: 06-22-2024 History of Social function [facility] Start: 08-09-2020 End: 06-22-2024 [facility] Utilities [facility] Has the [employer], [employer], [email or web address], or water company threatened to shut off services in your home in past 12Mo No [facility] Adolescent depressio n screening assessment 0 [facility] Start: 1991 Sex assigned at Not on file P [facility] Start: 02-01-2015 Sex Female (finding) [facility] Clinical Notes 08-06-2021 to 07-14-2024 Jose Kim MD - 07/14/2024 2:10 PM ESTAssessment & Plan Note - Jose Kim MD - 07/14/2024 1:49 PM ESTAssessment & Plan Note - Jose Kim MD - 07/14/2024 1:49 PM EST Note Date & Type Note Facility 07-14-2024 History of Presen t illness Narrative Images from the original note were not included. To: FENG GREENBERG MD HPI: Delazara Gomez is a 34 y.o. female with past medical history significant for chronic back pain. The patient states over the last two w eeks she has noted worsening back pain as [...] history of DM II, hypertension, or CAD. I reviewed her duplex ultrasound PVR the perfectly normal. Discussed with her the diagnosis. She was probably have neurogenic claudication. She is getting evaluated and planned to have procedure for that.. Review of Systems: Review of Systems Constitutional: Negative. HENT: Negative. Respiratory: Negative. Cardiovascular: Negative. Gastrointestinal: Negative. Endocrine: Negative. Genitourinary: Negative. Musculoskeletal: Negative. Skin: Negative. Neurological: Negative. Hematological: Negative. Medications: Current Outpatient Medications on File Prior to Visit Medication Sig Dispense Refill albuterol (PROVENTIL HFA;VENTOLIN HFA) 90 mcg/actuation inhaler Inhale 2 puffs every 6 (six) hours as needed for wheezing. budesonide-formoteroL (SYMBICORT) 160-4.5 mcg/actuation inhaler Inhale 2 puffs in the morning and 2 puffs before bedtime. lidocaine (LIDODERM) 5 % Place 1 patch on the skin daily. Remove & Discard patch within 12 hours or as directed by MD 30 patch 0 tiZANidine (ZANAFLEX) 4 mg tablet Take 1 tablet (4 mg total) by mouth every 6 (six) hours as needed for muscle spasms. 30 tablet 0 ferrous sulfate 325 (65 FE) mg tablet Take 325 mg by mouth 2 (two) times a day with meals. (Patient not taking: Reported on 06/22/2024) No current facility-administered medications on file prior to visit. Past Medical History: Past Medical History: Diagnosis Date Anemia Asthma Past Surgical History: History reviewed. No pertinent surgical history. Social and Family History: Social History Socioeconomic History Marital status: Spouse [...] Risk (06/22/2024) Housing Instability Housing Instability: No History reviewed. No pertinent family history. Recent Labs: Recent and relative labs were reviewed and interpreted and contributed to the assessment and plan below. Vitals: LMP 05/28/2024 (Approximate) There is no height or weight on file to calculate BMI. Physical Exam: Physical Exam Constitutional: Appearance: Normal appearance. HENT: Head: Normocephalic and atraumatic. Mouth/Throat: Mouth: Mucous membranes are moist. Eyes: Extraocular Movements: Extraocular movements intact. Pupils: Pupils are equal, round, and reactive to light. Cardiovascular: Rate and Rhythm: Normal rate and regular rhythm. Pulmonary: Effort: Pulmonary effort is normal. Breath sounds: Normal breath sounds. Abdominal: General: Abdomen is flat. Bowel sounds are normal. Palpations: Abdomen is soft. Musculoskeletal: General: Normal range of motion. Cervical back: Normal range of motion. Skin: General: Skin is warm and dry. Neurological: General: No focal deficit present. Mental Status: She is alert and oriented to person, place, and time. Mental status is at baseline. Psychiatric: Mood and Affect: Mood normal. Behavior: Behavior normal. Thought Content: Thought content normal. Judgment: Judgment normal. Recent testing: Assessment and Plan: Problem List Neurogenic claudication - Primary Current Assessment & Plan No evidence of significant peripheral arterial disease. Recommend evaluation and management by neuro spine. She is planned to have procedure. Doug was seen today for follow-up. Diagnoses and all orders for this visit: Neurogenic claudication Jose Kim MD, PRINCESS, RPVI, FSVS, FACS [facility] This note was created with the assistance of a speech recognition program. While intending to generate a timely document that accurately reflects the content of the visit, no guarantee can be provided that every grammatical or spelling mistake has been or will be identified or corrected. Thank you for your understanding. documented in this encounter [facility] 07-14-2024 Evaluation + Plan note Associated Problem(s): Neurogenic claudication No evidence of significant peripheral arterial disease. Recommend evaluation and management by neuro spine. She is planned to have procedure. [facility] 07-14-2024 Miscellaneous Notes Associated Problem(s): Neurogenic claudication No evidence of significant peripheral arterial disease. Recommend evaluation and management by neuro spine. She is planned to have procedure. documented in this encounter [facility] 06-27-2024 History of Presen t illness Narrative Images from the original note were not included. [facility] [address] [address] Subjective: Patient ID: Doug Gomez is a [...] thigh - [facility] - RUKHSANA Mendiola Plan: Plan The patient is noted to [...] Renea Phipps MD documented in this encounter [facility] 06-22-2024 Nurse Note Patient IV has been removed. Patient educated and has no questions or concerns. [facility] 06-22-2024 Nurse Note Patient IV has been removed. Patient educated and has no questions or concerns. documented in this encounter [facility] 06-22-2024 Plan of care note Problem: Pain Goal: Patient goal is pain score less than 4, able to rest, and participant in treatment plan as appropriate Description: INTERVENTIONS: 1. Encourage patient or legal community relations representative to report early pain and ask [...] per policy 9. Teach patient or legal community relations representative interventions for comforting Outcome: Adequate for [...] at the bedside 7. Instruct patient/ patient community relations representative about use of safety devices 8. Include patient/ patient community relations representative in decisions related to safety Outcome: [...] hygiene technique. 7. Identify and instruct patient/patient community relations representative in use of appropriate isolation precautions for identified infection/symptoms. 8. Provide and discuss with patient/patient community relations representative on educational MDRO sheet. 9. Encourage and monitor nutritional status daily and consult laboratory sample carrier if indicated. 10. Implement neutropenic guidelines as needed. Outcome: Adequate for Discharge Problem: Knowledge Deficit Goal: Patient/patient community relations representative demonstrates understanding of disease process, treatment [...] Score of =/> 25 or indicated by [facility] Assessment Goal: Patient should be free from fall Description: Interventions: 1. [place] to environment 2. Hourly rounds addressing the [...] non-skid footwear 11. Teach patient and patient community relations representative to maintain environment for safety and [...] (cane, walker) within reach 19. Request patient community relations representative bring adaptive equipment/mobility aids from home or obtain and provide as needed 20. Consult pharmacy regarding effects of med's affecting mobility, cognition, and alternatives 21. Obtain physician order for PT if risk factors associated with mobility are present 22. Obtain physician order for OT as appropriate 23. Utilize diversional activities 24. Educate patient and patient community relations representative how to maintain a safe environment during visitation times (notify nurse prior to leaving bedside) 25. Consider appropriateness of medical or non-certified medical coder 26. Set up voiding schedule as appropriate [...] pt experiencing intermittent numbness/tingling in RLE. [facility] 06-22-2024 Miscellaneous Notes Problem: Pain Goal: Patient goal is pain score less than 4, able to rest, and participant in treatment plan as appropriate Description: INTERVENTIONS: 1. Encourage patient or legal community relations representative to report early pain and ask [...] per policy 9. Teach patient or legal community relations representative interventions for comforting Outcome: Adequate for [...] at the bedside 7. Instruct patient/ patient community relations representative about use of safety devices 8. Include patient/ patient community relations representative in decisions related to safety Outcome: [...] hygiene technique. 7. Identify and instruct patient/patient community relations representative in use of appropriate isolation precautions for identified infection/symptoms. 8. Provide and discuss with patient/patient community relations representative on educational MDRO sheet. 9. Encourage and monitor nutritional status daily and consult laboratory sample carrier if indicated. 10. Implement neutropenic guidelines as needed. Outcome: Adequate for Discharge Problem: Knowledge Deficit Goal: Patient/patient community relations representative demonstrates understanding of disease process, treatment [...] Score of =/> 25 or indicated by [facility] Assessment Goal: Patient should be free from fall Description: Interventions: 1. [place] to environment 2. Hourly rounds addressing the [...] non-skid footwear 11. Teach patient and patient community relations representative to maintain environment for safety and [...] (cane, walker) within reach 19. Request patient community relations representative bring adaptive equipment/mobility aids from home or obtain and provide as needed 20. Consult pharmacy regarding effects of med's affecting mobility, cognition, and alternatives 21. Obtain physician order for PT if risk factors associated with mobility are present 22. Obtain physician order for OT as appropriate 23. Utilize diversional activities 24. Educate patient and patient community relations representative how to maintain a safe environment during visitation times (notify nurse prior to leaving bedside) 25. Consider appropriateness of medical or non-certified medical coder 26. Set up voiding schedule as appropriate [...] at the bedside 7. Instruct patient/ patient community relations representative about use of safety devices 8. Include patient/ patient community relations representative in decisions related to safety Outcome: Progressing Note: Evaluation of progress towards goal: Pt is free from falls. Bed is in lowest position and brakes are locked. Proper identification is used. Problem: Knowledge Deficit Goal: Patient/patient community relations representative demonstrates understanding of disease process, treatment [...] be free from fall Description: Interventions: 1. [place] to environment 2. Hourly rounds addressing the [...] non-skid footwear 11. Teach patient and patient community relations representative to maintain environment for safety and [...] (cane, walker) within reach 19. Request patient community relations representative bring adaptive equipment/mobility aids from home or obtain and provide as needed 20. Consult pharmacy regarding effects of med's affecting mobility, cognition, and alternatives 21. Obtain physician order for PT if risk factors associated with mobility are present 22. Obtain physician order for OT as appropriate 23. Utilize diversional activities 24. Educate patient and patient community relations representative how to maintain a safe environment during visitation times (notify nurse prior to leaving bedside) 25. Consider appropriateness of medical or non-certified medical coder 26. Set up voiding schedule as appropriate [...] Description: INTERVENTIONS: 1. Encourage patient or legal community relations representative to report early pain and ask [...] per policy 9. Teach patient or legal community relations representative interventions for comforting Outcome: Progressing Note: [...] at the bedside 7. Instruct patient/ patient community relations representative about use of safety devices 8. Include patient/ patient community relations representative in decisions related to safety Outcome: [...] hygiene technique. 7. Identify and instruct patient/patient community relations representative in use of appropriate isolation precautions for identified infection/symptoms. 8. Provide and discuss with patient/patient community relations representative on educational MDRO sheet. 9. Encourage and monitor nutritional status daily and consult laboratory sample carrier if indicated. 10. Implement neutropenic guidelines as needed. Outcome: Progressing Note: Evaluation of progress towards goal: Problem: Moderate - High Risk Fall Score Description: Lawson Fall Score of =/> 25 or indicated by [facility] Assessment Goal: Patient should be free from fall Description: Interventions: 1. [place] to environment 2. Hourly rounds addressing the [...] non-skid footwear 11. Teach patient and patient community relations representative to maintain environment for safety and [...] (cane, walker) within reach 19. Request patient community relations representative bring adaptive equipment/mobility aids from home or obtain and provide as needed 20. Consult pharmacy regarding effects of med's affecting mobility, cognition, and alternatives 21. Obtain physician order for PT if risk factors associated with mobility are present 22. Obtain physician order for OT as appropriate 23. Utilize diversional activities 24. Educate patient and patient community relations representative how to maintain a safe environment during visitation times (notify nurse prior to leaving bedside) 25. Consider appropriateness of medical or non-certified medical coder 26. Set up voiding schedule as appropriate [...] progress towards goal: documented in this encounter [facility] 06-22-2024 Hospital course Narrative Images from the original note were not included. ED Observation Discharge Summary BRIEF OVERVIEW Admitting Provider: Delfino Thomas, Discharge Provider: CAMI JENSEN PA-C Primary Care Physician: FENG GREENBERG MD [phone] Observation Services End Date and Time: No [...] evaluation treatment. Patient was initially seen in [facility], transferred to [facility], and placed in ED observation for MRI/further evaluation. Patient currently is not having any color changes to her foot. Patient is feeling somewhat better, but continues to declined any significant pain treatment at this time. Patient had CT scan performed at [facility] that showed a bulging disc L5 but [...] and oriented to person, place, and time. Kyle Coma Scale Eyes 4. Verbal 5. Motor 6. [place] Coma Total 15 Skin: Skin is warm [...] Your Medications These medications were sent to [facility]/pharmacy #[id number] AT [place] [address] gabapentin 300 mg capsule lidocaine 5 % [...] pursue inpatient stay. documented in this encounter [facility] [facility] 06-22-2024 Plan of care note Problem: [...] pt experiencing intermittent numbness/tingling in RLE. [facility] 06-22-2024 Plan of care note [...] at the bedside 7. Instruct patient/ patient community relations representative about use of safety devices 8. Include patient/ patient community relations representative in decisions related to safety Outcome: Progressing Note: Evaluation of progress towards goal: Pt is free from falls. Bed is in lowest position and brakes are locked. Proper identification is used. Problem: Knowledge Deficit Goal: Patient/patient community relations representative demonstrates understanding of disease process, treatment [...] be free from fall Description: Interventions: 1. [place] to environment 2. Hourly rounds addressing the [...] non-skid footwear 11. Teach patient and patient community relations representative to maintain environment for safety and [...] (cane, walker) within reach 19. Request patient community relations representative bring adaptive equipment/mobility aids from home or obtain and provide as needed 20. Consult pharmacy regarding effects of med's affecting mobility, cognition, and alternatives 21. Obtain physician order for PT if risk factors associated with mobility are present 22. Obtain physician order for OT as appropriate 23. Utilize diversional activities 24. Educate patient and patient community relations representative how to maintain a safe environment during visitation times (notify nurse prior to leaving bedside) 25. Consider appropriateness of medical or non-certified medical coder 26. Set up voiding schedule as appropriate (every 2 hours) Outcome: Progressing Note: Evaluation of progress towards goal: Pt educated on Fall Risk . Pt has non-slip socks on, 2 side rails up, up with assist. [facility] 06-22-2024 History and physical note Images from the original note were not included. ED Observation History and Physical Note PROVIDERS: Primary Care Physician: FENG GREENBERG MD [phone] Admitting Provider: Delfino Thomas [facility] START TIMES: ED Date: 06/22/2024 0013 [...] evaluation treatment. Patient was initially seen in [facility], transferred to [facility] [place], and placed in ED observation for MRI/further evaluation. Patient currently is not having any color changes to her foot. Patient is feeling somewhat better, but continues to declined any significant pain treatment at this time. Patient had CT scan performed at [facility] that showed a bulging disc L5 but [...] The case was discussed with the following sediment remediation consultant teams. Consulting Providers Provider Service Specialty [...] Code Status Information Code Status Full Code [facility] 06-22-2024 History and physical note Images from the original note were not included. ED Observation History and Physical Note PROVIDERS: Primary Care Physician: FENG GREENBERG MD [phone] Admitting Provider: Delfino Thomas DO CARE START [...] evaluation treatment. Patient was initially seen in [facility], transferred to [facility], and placed in ED observation for MRI/further evaluation. Patient currently is not having any color changes to her foot. Patient is feeling somewhat better, but continues to declined any significant pain treatment at this time. Patient had CT scan performed at [facility] that showed a bulging disc L5 but [...] The case was discussed with the following sediment remediation consultant teams. Consulting Providers Provider Service Specialty [...] Pain Patients Only: The ASCVD Risk score ([place] DK, et al., 2019) failed to calculate [...] Status Full Code documented in this encounter [facility] Plan of care note Problem: Pain Goal: Patient goal is pain score less than 4, able to rest, and participant in treatment plan as appropriate Description: INTERVENTIONS: 1. Encourage patient or legal community relations representative to report early pain and ask [...] per policy 9. Teach patient or legal community relations representative interventions for comforting Outcome: Progressing Note: [...] at the bedside 7. Instruct patient/ patient community relations representative about use of safety devices 8. Include patient/ patient community relations representative in decisions related to safety Outcome: [...] hygiene technique. 7. Identify and instruct patient/patient community relations representative in use of appropriate isolation precautions for identified infection/symptoms. 8. Provide and discuss with patient/patient community relations representative on educational MDRO sheet. 9. Encourage and monitor nutritional status daily and consult laboratory sample carrier if indicated. 10. Implement neutropenic guidelines as needed. Outcome: Progressing Note: Evaluation of progress towards goal: Problem: Moderate - High Risk Fall Score Description: Lawson Fall Score of =/> 25 or indicated by [facility] Assessment Goal: Patient should be free from fall Description: Interventions: 1. [place] to environment 2. Hourly rounds addressing the [...] non-skid footwear 11. Teach patient and patient community relations representative to maintain environment for safety and [...] (cane, walker) within reach 19. Request patient community relations representative bring adaptive equipment/mobility aids from home or obtain and provide as needed 20. Consult pharmacy regarding effects of med's affecting mobility, cognition, and alternatives 21. Obtain physician order for PT if risk factors associated with mobility are present 22. Obtain physician order for OT as appropriate 23. Utilize diversional activities 24. Educate patient and patient community relations representative how to maintain a safe environment during visitation times (notify nurse prior to leaving bedside) 25. Consider appropriateness of medical or non-certified medical coder 26. Set up voiding schedule as appropriate [...] Progressing Note: Evaluation of progress towards goal: [facility] 06-22-2024 Emergency department Triage note Patient presented to [facility] due to losing muscle mass in her Rt buttock and RLE turning purple along with shaking. [facility] 06-22-2024 Emergency department Note Patient presented to [facility] due to losing muscle mass in her Rt buttock and RLE turning purple along with shaking. documented in this encounter [facility] 08-06-2021 Note Chief Complaint consultation for RUQ [...] adapter, 2 puf (more content not included)... [facility] Comment on above: Result Comment: Elec tronically Signed By: POPPY VALDEZ, Fred Jain\Date and Time Signed: 08/06/21 15:12 EST Evaluation note Diagnosis Back pain- Primary Unspecified backache Back pain Unspecified backache Atrophy of muscle of right thigh Muscle wasting Muscular wasting and disuse atrophy, not elsewhere classified Trouble walking Difficulty in walking documented in this encounter [facility]* Diagnosis Back pain Unspecified backache Atrophy of muscle of right thigh documented in this encounter [facility]* Diagnosis Neurogenic claudication- Primary Spinal stenosis of lumbar region [facility] Attachments The following attachments cannot be sent through Care Everywhere. * Upper Back Pain Discharge Instructions (Estonian) [facility]ructionsNot on file documented in this encounterPro[facility] SystemInstructionsNot on file documented in this encounterUniversity [facility] Summary Purpose Family History No Family [...] section and content) DATE CREATED AUTHOR 09/15/2021 [facility] DATE CREATED AUTHOR AUTHOR'S ORGANIZ ATION 08/26/2022 [facility] DATE CREATED AUTHOR AUTHOR'S ORGANIZ ATION 06/23/2024 [facility] DATE CREATED AUTHOR AUTHOR'S ORGANIZ ATION 07/17/2024 [facility] DATE CREATED AUTHOR AUTHOR'S ORGANIZ ATION 08/10/2024 [facility] Reason for Visit (unrecogniz ed section and [...] right thigh Delfino Thomas, DO [address] [place] [address] Phone: tel: fax: [facility] [address] [place] [address] Phone: tel:[phone] fax: Referral ID Status Reason Start Date Expiration Date Visits Requested Visits Authorized [id number] Pending Review Specialty Services Required 06/22/2025 1 1 Reason Comments Follow-up Testing done- pt c/o cramping and pain in both legs, right leg is worse- states hands, feet,and arms are often cold and turns purple Scheduled Active and Recently Administ ered Medications [...] to 3.9 mg/dL, Starting on Thu06/22/24 at 030, IV Administration of calcium via a central or deep vein preferred. Avoid administration in small hand veins VESICANT (RED) calcium gluconate 4,000 mg in sodium chloride 0.9 % 250 mL IVPB 4,000 mg, intravenous, at 72.5 mL/hr, Administer over 4 Hours, As needed, ionized calcium 3.4 mg/dL or less, Starting on Thu06/22/24 at 030, IV administration of calcium via a central [...] than 70 mg/dL, Starting on Thu06/22/24 at 030, If patient conscious and taking PO. If blood glucose is not greater than 70 mg/dL after initial treatment, repeat treatment. dextrose 5 % (D5W) infusion 100 mL/hr, intravenous, Continuous PRN, blood glucose less than 70 mg/dL, Starting on Thu06/22/24 at 030, For 1 day, Use immediately following dextrose [...] with IV access, Starting on Thu06/22/24 at 030, Push over 1-3 minutes STAT. If conscious [...] intermittent use, Starting on Thu06/22/24 at 0301 sodium chloride 0.9 % infusion 20 mL/hr, [...] Care Teams (unrecognized sec tion and content) Cycle Repairer Relationship Specialty Start Date End Date Feng Greenberg MD PCP - General Family Medicine 04/12/24 Cycle Repairer Relationship Specialty Start Date End Date Feng Greenberg MD PCP - General Family Medicine 04/12/24 Cycle Repairer Relationship Specialty Start Date End Date Feng [...] BE BASED ON THE PRIMARY CLINICAL RECORDS. [facility]. provides no warranty or guarantee of the accuracy or completeness of information in this document.
[2024-08-19 06:48] LABS: HCG Qualitative NEGATIVE (NEGATIVE); Internal Control Within Normal Limits
[2024-08-19] MEDS: LACTATED RINGER'S SOLUTION 1,000 ML 50 ML IV ×2 (07:22→09:02)
[2024-08-19] MEDS: FAMOTIDINE/PF 20 MG/2 ML VIAL IV (07:23)
[2024-08-19] MEDS: SCOPOLAMINE 1 MG/3 DAYS TRANSDERM PATCH 1 PATCH TD (07:23)
[2024-08-19] MEDS: CEFAZOLIN SODIUM 2 GM/50 ML D5W PREMIX IV (07:31)
[2024-08-19] MEDS: VANCOMYCIN HCL 1,000 MG VIAL 1000 MG TOPICAL (09:20)
--- NOTE | 2024-08-19 09:22 | XR_ITS ---
[facility] [place] [id number] Patient Name: JARRELL WHITING MRN: [id number] date: 1990 Sex: F Assigned Patient Location: [facility] Current Patient Location: [facility] Accession/Order Number: [id number] Exam Date: 08/19/2024 10:28 Report Date: 08/19/2024 10:32 At the request of: ZACHERY CLAIRE MD Procedure: XR lumbar spine 2-3V PORTABLE LUMBAR SPINE - one view COMPARISON: 07/01/2024 CLINICAL DATA: Intraoperative assessment of lumbosacral fusion A single lateral prone view of the lumbar spine was obtained in the operating room. There are new posterior rods and pedicle screws at the lumbosacral junction. The hardware, as visualized appears intact and in appropriate position. No acute fractures or displacement are seen. The disc spaces are maintained. XR/XR lumbar spine 2-3V IMPRESSION: INTERVAL LUMBOSACRAL FUSION. Impression dictated by: Michaela Correia M.D.08/19/2024 10:32 AM Dictation Location: [place] Electronically authenticated by: [id number] Y Date: 08/19/2024 10:32
--- NOTE | 2024-08-19 09:52 | P.ON_ITS ---
Brief Operative Note Date of procedure: 08/19/24 Pre-op diagnosis general: Lumbar stenosis Post-op diagnosis: same as pre-op Procedure: L5-S1 decompression and fusion Anesthesia: JUANI Surgeon: Tammie Steele Handbag Framer: Bj Sunshine Estimated blood loss (mL): 150 Pathology: none sent Condition: stable Disposition: PACU
[2024-08-19] MEDS: HYDROMORPHONE HCL 0.5 MG/0.5 ML SYRINGE IV ×2 (09:53→10:07)
--- NOTE | 2024-08-19 09:57 | P.ON_ITS ---
Surgery Operative Note Operative Note Procedure Date: 08/19/24 Time Out Performed: yes Pre-op Diagnosis: 1. L5-S1 stenosis with radiculopathy 2. Chronic bilateral L5 spondylolysis 3. L5-S1 spondylolisthesis, grade 1 Post-op Diagnosis: same as pre-op Procedures performed: 1. ?L5-S1 bilateral laminectomy, partial medial facetectomies and foraminotomies of L5 and S1 nerve roots along with total facetectomies at L5-S1 for complete decompression of the bilateral L5 nerve roots 2. ?L5-S1 posterior spinal fusion. 3. ?L5-S1 posterior spinal instrumentation, Goblin, Medynus instrumentation. 4. ?Use of local autograft bone Anesthesia: JUANI Primary Surgeon: Tammie Steele Complications: None Estimated blood loss (mL): 150 Findings: Stenosis Specimens: None Drains: Hemovac x 1 Indications for Procedures: INDICATIONS: ?This is a 34-year-old female with refractory back and leg pain with numbness/tingling from a spondylolytic spondylolisthesis, grade 1 and lumbar stenosis from L5-S1. ?Patient has failed full conservative therapy including medication management, physician directed home exercises and lumbar injections. Due to the persistence of symptoms and reduction in the ADLs, patient elected surgical treatment.?Patient, therefore, understood indications for the surgery as well as its risks, benefits, and alternatives. ?These risks include but are not limited to paralysis, infection, hematoma, dural tear, nerve root injury, nonunion, DVT/PE, stroke, WA, etc. ?All questions were answered. Informed consent was obtained. Detailed description of Procedure: The patient was taken to the operating room by the Anesthesiology Service and had satisfactory general anesthesia.?A first-generation cephalosporin was given within 1 hour of surgical incision. ?2 gm of cefazolin was given IV. ?Venous thromboembolic prophylaxis was performed with sequential devices. The patient was then positioned prone on a standard OSI frame with the abdomen hanging free and all bony prominences well padded. ?The low back was then prepped and draped in its entirety in the usual sterile fashion. Before incision, a formal timeout was taken per protocol. We next took a midline longitudinal approach and performed subperiosteal dissection out to the tips of the transverse processes of L5 and S1.?Intraoperative localization of level was confirmed using anatomic landmarks. ?We then began the laminectomy as well as decompression by removing the spinous process of L5. ?The L5 segment was found to be grossly unstable. We entered the spinal canal, resecting the ligamentum flavum in its entirety over this region. Patient had significant stenosis in the lateral recess and neural foramina.?Partial medial facetectomy was then performed with an osteotome to get lateral to the facet overhang, but just medial to the pedicles and nerve roots. ?Kerrison's were then used to perform foraminotomies of the L5 and S1 nerve roots bilaterally. In order to get further lateral to the bilateral L5 nerve root, total facetectomy was performed at L5-S1. ?In this way, the L5 nerve root was completely visualized and foraminized. ?In this way, we completed decompression at L5-S1 with foraminotomies of the L5 and S1 nerve roots bilaterally. Satisfied with this, we then turned our attention to perform spinal instrumentation and posterolateral fusion. Using anatomic landmarks and guided by direct visualization of the pedicles from within the canal, pedicle screws were placed bilaterally at L5 and S1. ?All the screws were completely interosseous as determined by bony palpation except for the tip of the S1 screw which remained bicortical by design. ?Before the screws were inserted, the transverse processes were decorticated with a high-speed bur at L5 and S1. ?Local autograft bone was placed over the decorticated elements bilaterally from L5-S1. The screws were then inserted which were under tapped by 1 mm. ?Two rods were placed from L5-S1, set screws engaged and tightened down to their final torque. ?Everything was tightened down. ?A very rigid construct was achieved. ?Final x-ray was taken, demonstrated good position of the spine and all of the implants. Satisfied with this, we then achieved hemostasis. ?We then copiously irrigated the wound with Irrisept. ?We then inserted a Hemovac drain through a separate stab incision. ?The wound was then closed in layer with interrupted 1 and 2-0 Vicryl sutures and dusted with vancomycin powder. ?A 4-0 Monocryl was used for the skin. The skin edges were sealed with Dermabond. ?A dry sterile dressing was applied. ?The patient was then returned to the hospital bed, extubated, and taken to the recovery room in stable condition. Spinal cord monitoring remained stable throughout the operation. SUPERVISOR COAL HANDLING: ?LETA Malhotra PA-C, assisted throughout the procedure with positioning, draping, retraction, wound closure, and dressing application. POSTOPERATIVE CARE: ?The patient will be recovered in PACU and then a regular nursing floor. ??Once the drainage is low and pain is under control, patient will be discharged home per clinical indication. Patient will follow up in the office in 6 weeks. ?At that time, AP and lateral x-rays of the lumbar spine will be obtained to assess instrumentation and fusion. Dredge Pipe Installer: Bj Sunshine
[2024-08-19 10:19] LABS: Hematocrit 36.5 % (36.0-48.0)
[2024-08-19 10:21] LABS: Glucometer 140 mg/dL (74-106)
[2024-08-19 10:29] LABS: Anion Gap 10.6; BUN Creatinine Ratio 10.6; Calcium 8.4 mg/dL (8.5-10.1); Chloride 103 mmol/L (98-107); Estimated GFR (African America >60 (>=60 mL/min/1.73m^2); Estimated GFR (Non-African Ame >60 (>=60 mL/min/1.73m^2); Glucose 146 mg/dL (74-106); Potassium 3.6 mmol/L (3.5-5.1); Sodium 137 mmol/L (136-145)
[2024-08-19] MEDS: 0.9 % SODIUM CHLORIDE 1,000 ML 100 ML IV (11:15)
[2024-08-19] MEDS: ALBUTEROL SULFATE 2.5 MG/3 ML VIAL NEB IH (11:45)
--- NOTE | 2024-08-19 15:16 | CM.NOTE ---
Talked with pt's significant other regarding discharge planning. Pt sleeping at this time. Pt has been up ambulating in hallway. Denies discharge needs at this time. Explained to significant other if they would get home and find she needs HH services they could reach out to PCP.
[2024-08-19] MEDS: ACETAMINOPHEN 325 MG TABLET 650 MG PO (17:48)
[2024-08-19] MEDS: CYCLOBENZAPRINE HCL 10 MG TABLET PO (17:48)
[2024-08-19] MEDS: CEFAZOLIN SODIUM/DEXTROSE,ISO 2 GM/50 ML PIGGYBACK IV ×2 (17:49→23:09)
[2024-08-19] MEDS: MORPHINE SULFATE 2 MG/ML SYRINGE IV (23:10)
[2024-08-20] VITALS (9 sets, daily range): BP systolic 91–127; BP diastolic 53–84; PULSE 52–80; TEMP 36.4–37.2; O2SAT 95–100
[2024-08-20] MEDS: 0.9 % SODIUM CHLORIDE 1,000 ML 100 ML IV (05:00)
[2024-08-20 05:54] LABS: Hematocrit 27.1 % (36.0-48.0); Hemoglobin 8.9 g/dL (12.0-16.0)
[2024-08-20] MEDS: ACETAMINOPHEN 325 MG TABLET 650 MG PO ×3 (06:05→19:38)
[2024-08-20] MEDS: CYCLOBENZAPRINE HCL 10 MG TABLET PO ×3 (06:05→19:39)
[2024-08-20 06:06] LABS: Anion Gap 9.3; BUN Creatinine Ratio 6.6; Calcium 8.2 mg/dL (8.5-10.1); Carbon Dioxide 28.1 mmol/L (21.0-32.0); Chloride 107 mmol/L (98-107); Estimated GFR (African America >60 (>=60 mL/min/1.73m^2); Estimated GFR (Non-African Ame >60 (>=60 mL/min/1.73m^2); Glucose 117 mg/dL (74-106); Potassium 4.4 mmol/L (3.5-5.1); Sodium 140 mmol/L (136-145)
[2024-08-20] MEDS: OXYCODONE HCL 5 MG TABLET PO ×2 (08:59→17:46)
[2024-08-20] MEDS: ONDANSETRON PF 4 MG/2 ML VIAL IV (09:01)
--- NOTE | 2024-08-20 09:02 | P.ORPN_ITS ---
Progress Note: A&P Assessment and Plan (1) Status post lumbar spine surgery for decompression of spinal cord: Plan POD #1 L5-S1 decompression/fusion -Hemovac output 90 mL in last 7 hours, maintain today -Neurovascularly intact bilateral lower extremities -Ambulate as tolerated, walker as needed, pt does still have some RLE weakness - No bending,twisting, lifting over 10lbs - Plan for discharge tomorrow if pain remains controlled Discussed with my Supervising Physician, Dr Manrique Subjective Subjective Principal diagnosis: Post Op L5-S1 Decompression/ Fusion Interval history: Patient is postop day #1 status post L5-S1 decompression/fusion and is doing well. Pain is controlled. Patient states that she has been up walking. Per RN patient has reported some weakness in her legs with ambulating. Patient denies bowel or bladder complaints or saddle anesthesia. Exam Narrative Exam Narrative: On exam patient is in no distress, sitting up in the hospital bed, age- appropriate, alert and oriented x 3. On inspection patient's lumbar dressing is clean/dry/intact. Hemovac in place. 5/5 strength bilateral lower extremities except right hip flexion/extension 4/5. Sensation intact distally to bilateral lower extremities. Constitutional Vital Signs, click to edit/add: Last Vital Signs Temp 97.6 F 08/20/24 08:31 Pulse 64 08/20/24 08:31 Resp 18 08/20/24 07:38 BP 122/84 08/20/24 08:31 Pulse Ox 98 08/20/24 08:31 O2 Del Method Room Air 08/20/24 08:31
--- NOTE | 2024-08-20 10:42 | REH.PTDLY ---
Physical Therapy Daily Note PT Daily Note/Assess Start: 08/19/24 15:50 Freq: Status: Active Protocol: Document 08/20/24 10:36 TELLY (Rec: 08/20/24 10:42 TELLY [id number]) Physical Therapy Daily Note/Assessment Time In 10:15 Time Out 10:32 Pain Level 4 Pain Level 5 Subjective Pt in sitting upright in bed with support upon arrival. Pt wanting to get up and walk. Pt really wants to go home, told she needed to stay till Thursday. However she said someone today said maybe she can leave tomorrow. I overdo it at home and they know this and that is why they wanted me to stay. Therapeutic Activity 15 Minutes (minutes) Therapeutic Activity 1 Units Therapeutic Activity Pt Ind with supine so sit transfer. Sit to stand Comments transfer Supervised. Gait training with RW 150 feet SBA with postural cues. Pt relies heavily on UEs for support. Pt ambulates at very slow pace. States it feels good to get up and move, complains of L knee pain last 20 feet of gait. Cues with transfers from sit to supine to lay on her side first and then bring legs into bed, rolling then onto back. Re-educated on performing the same getting out of bed. Total Therapy 15 Minutes Total Physical 1 Therapy Units Daily Note Summary Progressed gait distance today with RW and pt ambulating at slow pace. Initially pt wanted to try the steps, but encouraged pt that we will try the steps tomorrow as she is fatigued post gait. Pt eager to get back home to her kids.
[2024-08-20] MEDS: MORPHINE SULFATE 2 MG/ML SYRINGE IV (23:02)
[2024-08-21] MEDS: OXYCODONE HCL 5 MG TABLET PO ×2 (02:19→09:32)
[2024-08-21] MEDS: CYCLOBENZAPRINE HCL 10 MG TABLET PO (02:19)
[2024-08-21 04:00] VITALS: BP 114/68; PULSE 68; TEMP 36.8; O2SAT 99
[2024-08-21 06:22] LABS: Hematocrit 29.1 % (36.0-48.0); Hemoglobin 9.6 g/dL (12.0-16.0)
[2024-08-21 06:34] LABS: Anion Gap 7.5; BUN Creatinine Ratio 8.6; Calcium 8.5 mg/dL (8.5-10.1); Carbon Dioxide 30.2 mmol/L (21.0-32.0); Chloride 105 mmol/L (98-107); Estimated GFR (African America >60 (>=60 mL/min/1.73m^2); Estimated GFR (Non-African Ame >60 (>=60 mL/min/1.73m^2); Glucose 92 mg/dL (74-106); Potassium 3.7 mmol/L (3.5-5.1); Sodium 139 mmol/L (136-145)
[2024-08-21 07:34] VITALS: BP 134/88; PULSE 81; TEMP 36.8; O2SAT 98
--- NOTE | 2024-08-21 08:02 | REH.PTDLY ---
Physical Therapy Daily Note PT Daily Note/Assess Start: 08/19/24 15:50 Freq: Status: Active Protocol: Document 08/21/24 07:54 TELLY (Rec: 08/21/24 08:01 TELLY [id number]) Physical Therapy Daily Note/Assessment Time In 07:40 Time Out 07:52 Pain Level 5 Pain Level 5 Subjective Pt awake upon arrival with nursing in room. Reports pt has been up since about 4 this morning, has been medicated and had breakfast. Really hoping to go home today. Pt reports she walked the halls about 4 different times yesterday. Therapeutic Activity 10 Minutes (minutes) Therapeutic Activity 1 Units Therapeutic Activity Pt Ind with transfers in and out of bed. Pt ambulated Comments with RW Ind 300 feet with improved armando and posture today compared to previous date. Pt is not relying on UE support as much today. Stair training on 4 steps with Jayme HR SBA step over step with caution. Pt reports some soreness when performing. Re-educated pt on safe log rolling at home when getting in and out of bed. Pt states she has a recliner that is remote controlled that she plans to sleep in as it can lay totally flat. Total Therapy 10 Minutes Total Physical 1 Therapy Units Daily Note Summary Pt is Ind with gait using AD and able to perform the stairs safely today. All goals met at this time and pt is DC from PT.
--- NOTE | 2024-08-21 08:05 | PM.ORPN ---
Progress Note: A&P Assessment and Plan (1) Status post lumbar spine surgery for decompression of spinal cord: Assessment and Plan: POD #2 L5-S1 decompression/fusion -Hemovac output 150mL in last 12 hours, will discharge with Hemovac, plan for home health/ RN (patient's mother) to remove when less than 150 mL in a 24-hour period -Neurovascularly intact bilateral lower extremities -Ambulate as tolerated, walker as needed -No bending,twisting, lifting over 10lbs -Patient will discharge home today with Hemovac -Post Op meds sent to pharmacy, pt has picked up already -Follow up in [address] Manrique Discussed with my Supervising Physician, Dr Manrique Subjective Subjective Interval history: Patient is POD #2 status post L5-S1 decompression and fusion. Patient is doing good and denies pain. She states she has been up walking without issue. She has had a BM. She denies bowel or bladder incontinence/retention or saddle anesthesia. She is eager to discharge today. Exam Narrative Exam Narrative: On exam patient is in no distress, sitting up in the hospital bed, age-appropriate, alert and oriented x 3. On inspection patient's lumbar dressing is clean/dry/intact. Hemovac in place. 5/5 strength bilateral lower extremities. Sensation intact distally to bilateral lower extremities. Constitutional Vital Signs, click to edit/add: Last Vital Signs Temp 98.2 F 08/21/24 07:34 Pulse 81 08/21/24 07:34 Resp 18 08/21/24 07:34 BP 134/88 08/21/24 07:34 Pulse Ox 98 08/21/24 07:34 O2 Del Method Room Air 08/21/24 07:34
[2024-08-21 08:32] VITALS: PULSE 81
--- NOTE | 2024-08-22 09:44 | SWNOTE1 ---
Case management did assess patient, and there was no need for HH services.
--- NOTE | 2024-08-23 14:46 | CM.DCFOLLOWU ---
Person spoke with:patient How are you feeling? seble, she made some movement and heard 2 pops. Advised to call Dr[address] Fisher office to see what they advise to do How is your pain? seble Did you understand your discharge instructions?yes Do you have any questions about your discharge instructions? no Were you given any prescriptions at discharge?no Were you able to get your prescriptions filled?N/A Do you understand how to take your medications as ordered?yes Do you have any questions about your follow up appointment and do you plan to keep your follow up appointment? no questions, follow up reviewed Is there anything else that you would like to discuss?no Questions/Comments/Concerns/Other:none
== END 2024-08-21 09:40 | disposition home or self-care (01) ==
LOC: MS 08-21 08:14
PROVIDERS: Anesthesiology; Admitting Provider Orthopaedic Surgery Orthopaedic Surgery of the Spine; PCP Family Medicine; Visit Provider Orthopaedic Surgery Orthopaedic Surgery of the Spine
PROC: (CPT 630; principal; 2024-08-19 07:30)
DX: M48.061 Spinal stenosis, lumbar region without neurogenic claudication (principal); M47.26 Other spondylosis with radiculopathy, lumbar region; M43.16 Spondylolisthesis, lumbar region; F41.9 Anxiety disorder, unspecified; J45.909 Unspecified asthma, uncomplicated; F17.290 Nicotine dependence, other tobacco product, uncomplicated; Z87.442 Personal history of urinary calculi
CPT/HCPCS: 20936; 22633; 22840; 63052; 63053; 36415; 72100; 80048; 82948; 84703; 85014; 85018; 94640; 95861; 95938; 97116; 97161; 97165; 97530; 97535; C1713; G0378; J0131; J0690; J1100; J1171; J2250; J2270; J2405; J2704; J3010; J3370; J3490

== ENCOUNTER 2024-09-09 10:00 | Emergency (ER) | payer MEDICAID, SELFPAY ==
[2024-09-09 10:03] VITALS: BP 135/92; PULSE 85; TEMP 36.9; O2SAT 98; BMI 18.1
--- OUTSIDE RECORDS SUMMARY | 2024-09-09 10:21 | XMS_ITS | CCD ---
Author Organization [facility] Care Team Providers Care Explosive Operator Name Role Phone RENEE ., DR TONEY Attending Unavailable HOY ., DR TONEY Admitting Unavailable HOY ., DR TONEY Primary Care Unavailable HOY ., DR TONEY Consulting Unavailable HOY ., DR TONEY Admitting Unavailable HOY ., DR TONEY Primary Care Unavailable HOY ., DR TONEY Consulting Unavailable HOY ., DR TONEY Attending Unavailable Terencey Feng VALDEZ Primary Care Provider [phone] HOY, FENG M Primary Care Unavailable YUNIOR [...] Primary Care Unavailable DELFINO THOMAS Attending Unavailable SOFIA, SELVON Referring Unavailable HOY, [...] Acetaminophen / HYDROcodone Drug Allergy 11-28-2014 [facility] (6 sources) Acetaminophen / HYDROcodone; Translations: [HYDROCODONE-ACETA MINOPHEN] Drug Allergy 05-10-2021 [facility] Medications Current Medications Medication Drug Class(es) Dates Sig (Normalized) Sig (Original) acetaminophen 325 mg oral tablet (1 source) Start: 06-22-2024 take 1 tablet by mouth every six hours as needed for headache 650 mg, oral, Every 6 hours PRN, headaches, temperature greater than 38.3 C, Starting on Thu06/22/24 at 0301 [id number] 200 actuat albuterol 0.09 mg/actuat metered dose [...] Johnson MD on 07/05/2024 11:07 AM Normal [facility] CREATININEon 06-22-2024 Creatinine [Mass/Vol] 0.72 mg/dL Normal 0.40-1.00 [facility] Comment on above: Result Comment: METH OD TRACEABLE TO IDRI STANDARD Performed By: #### H H, PLTCT, SILVER LAP MACHINE TENDER #### [facility] ([id number]) [address], [address] [place] [address] eGFR (CKD-EPI) NON-RACE DEPENDENT >90 Normal >59 [facility] Comment on above: Result Comment: Reported eGFR is based on the CKD-EPI 2020 equation that does not use a race coefficient. Performed By: #### H H, PLTCT, SILVER LAP MACHINE TENDER #### [facility] ([id number]) [address], [address] [place] [address] Creatinine includes GFR, ser umon 06-22-2024 Creatinine [Mass/Vol] 0.72 mg/dL 0.40 - 1.00 mg/dL [facility] Comment on above: METHOD TRACEABLE TO IDMS STANDARD eGFR (CKD-EPI)non-race dependent - PINF [facility] Comment on above: Reported eGFR is based on the CKD-EPI 2020 equation that does not use a race coefficient. [facility] HGB AND HCTon 06-22-2024 Hematocrit (Bld) [Volume fraction] 33.3 % Low 35-47 [facility] Comment on above: Performed By: #### H H, PLTCT, SILVER LAP MACHINE TENDER #### [facility] ([id number]) [address], [address] [place] [address] Hemoglobin (Bld) [Mass/Vol] 11.3 g/dL Low 11.7-15.5 [facility] Comment on above: Performed By: #### H H, PLTCT, SILVER LAP MACHINE TENDER #### [facility] ([id number]) [address], [address] [place] [address] Hemoglobin and hematocrit, b loodon 06-22-2024 Hematocrit (Bld) [Volume fraction] 33.3 % Low 35 - 47 % [facility] Hemoglobin (Bld) [Mass/Vol] 11.3 g/dL Low 11.7 - 15.5 g/dL [facility] Interpretation and review of laboratory results Abnormal [facility] MR LUMBAR SPINE WO CONTon MR LUMBAR [...] Suhas Kelly MD on 06/22/2024 7:18 AM [facility] MR Lumbar spine WO contrasto n [...] Suhas Kelly MD on 06/22/2024 7:18 AM [facility] Suhas Kelly MD - 06/22/2024 LUMBAR SPINE [...] Suhas Kelly MD on 06/22/2024 7:18 AM [facility] Radiology Study observation (narrative) [facility] MR Lumbar spine WO contrastO rdered By: Suhas Kelly on 06-22-2024 [facility] Work Phone: No Panel Informationon 06-22 [facility] PLATELET COUNT AND MPVon Platelet mean volume (Bld) [Entitic vol] 11.3 fL Normal 7-12 [facility] Comment on above: Performed By: #### H H, PLTCT, SILVER LAP MACHINE TENDER #### [facility] ([id number]) [address], [address] [place] [address] Platelets (Bld) [#/Vol] 180 10*3/uL Normal 150-450 [facility] Comment on above: Performed By: #### H H, PLTCT, SILVER LAP MACHINE TENDER #### [facility] ([id number]) [address] [place] [address] Platelet counton 06-22-2024 Platelet mean volume (Bld) [Entitic vol] 11.3 fL 7 - 12 fL [facility] Platelets (Bld) [#/Vol] 180 10*3/uL [facility] CT HIP RT WO CONTon 06-21-20 CT [...] Ralph MD on 06/21/2024 9:59 PM Normal [facility] CT LUMBAR SPINE WO CONTon CT [...] Burleson MD on 06/21/2024 10:04 PM Normal [facility] XR HIP RT 2-3 VIEWS W [...] Solorzano MD on 06/18/2024 4:37 AM Normal [facility] XR SPINE LUMBAR 2 OR 3 [...] Solorzano MD on 06/18/2024 4:37 AM Normal [facility] GI PANELon 04-14-2024 Gastrointestinal pathogens DNA [...] SAPOVIRUS Not detected (qualifier value) Normal NDET [facility] Comment on above: Performed By: #### C KIMANI CMP, 3039-3 #### [facility] ([id number]) [address] [place] [address] CBC AND AUTO DIFFon 10-15-20 24 ABSOLUTE BASOPHIL 0.0 X10E9/L Normal 0.0-0.2 [facility] Comment on above: Performed By: #### Jairon HARMAN CMP, 3039-3 #### [facility] ([id number]) [address] [place] [address] ABSOLUTE NEUTROPHIL 9.5 X10E9/L High 1.5-6.6 [facility] Comment on above: Performed By: #### Jairon HARMAN CMP, 3 #### [facility] ([id number]) [address] [place] [address]20 Basophils/100 WBC (Bld) 0.2 % Normal [facility] Comment on above: Performed By: #### Jairon HARMAN CMP, 3039-3 #### [facility] ([id number]) [address] [place] [address]842 Eosinophils (Bld) [#/Vol] 0.0 10*3/uL Normal 0.0-0.4 [facility] Comment on above: Performed By: #### Jairon HARMAN CMP, 3039-3 #### [facility] ([id number]) [address] [place] [address] Eosinophils/100 WBC (Bld) 0.3 % Normal [facility] Comment on above: Performed By: #### Jairon HARMAN CMP, 3039-3 #### [facility] ([id number]) [address] [place] [address] [place] [address] Erythrocyte distribution width (RBC) [Ratio] 15.3 % High 11.5-15.0 [facility] Comment on above: Performed By: #### Jairon HARMAN CMP, 3039-3 #### [facility] ([id number]) [address] [place] [address] Hematocrit (Bld) [Volume fraction] 38.5 % Normal 35-47 [facility] Comment on above: Performed By: #### Jairon HARMAN, CMP, 3039-3 #### [facility] ([id number]) [address] [place] [address] Hemoglobin (Bld) [Mass/Vol] 12.8 g/dL Normal 11.7-15.5 [facility] Comment on above: Performed By: #### Jairon HARMAN CMP, 3039-08 #### [facility] ([id number]) [address] [place] [address] Lymphocytes (Bld) [#/Vol] 1.1 10*3/uL Normal 1.0-3.5 [facility] Comment on above: Performed By: #### Jairon HARMAN, CMP, 3039-08 #### [facility] ([id number]) [address] [place] [address] 048[address] Lymphocytes/100 WBC (Bld) 9.9 % Normal [facility] Comment on above: Performed By: #### Jairon HARMAN CMP, 3039-08 #### [facility] ([id number]) [address] [place] [address] 079[address] MCH (RBC) [Entitic mass] 27.7 pg Normal 27-34 [facility] Comment on above: Performed By: #### Jairon HARMAN, CMP, 3 #### [facility] ([id number]) [address] [place] [address] 28954 MCHC (RBC) [Mass/Vol] 33.2 g/dL Normal 32-36 [facility] Comment on above: Performed By: #### Jairon HARMAN, CMP, 3039-3 #### [facility] ([id number]) [address] [place] [address] 86093 MCV (RBC) [Entitic vol] 84 fL Normal 80-100 [facility] Comment on above: Performed By: #### Jairon HARMAN CMP, 3039-08 #### [facility] ([id number]) [address] [place] [address]92 Monocytes (Bld) [#/Vol] 0.7 10*3/uL Normal 0-0.9 [facility] Comment on above: Performed By: #### Jairon HARMAN CMP, 3039-08 #### [facility] ([id number]) [address] [place] [address] 54163 Monocytes/100 WBC (Bld) 6.2 % Normal [facility] Comment on above: Performed By: #### Jairon HARMAN CMP, 3039-08 #### [facility] ([id number]) [address] [place] [address] 46574 Neutrophils/100 WBC (Bld) 83.4 % Normal [facility] Comment on above: Performed By: #### Jairon HARMAN [facility], 3039-08 #### [facility] ([id number]) [address] [place] [address] 36046 Platelet mean volume (Bld) [Entitic vol] 9.7 fL Normal 7-12 [facility] Comment on above: Performed By: #### Jairon HARMAN CMP, 3039-08 #### [facility] ([id number]) [address] [place] [address] 11798 Platelets (Bld) [#/Vol] 177 10*3/uL Normal 150-450 [facility] Comment on above: Performed By: #### Jairon HARMAN CMP, 3039-08 #### [facility] ([id number]) [address] [place] [address] 97309 RBC COUNT 4.62 X10E12/L Normal 3.80-5.20 [facility] Comment on above: Performed By: #### C BCA, CMP, 0-3 #### [facility] ([id number]) [address] [place] [address] 6[address]70 WBC (Bld) [#/Vol] 11.3 10*3/uL High 4.0-11.0 [facility] Comment on above: Performed By: #### C BCA, CMP, 3039-3 #### [facility] ([id number]) [address] [place] [address] COMPREHENSIVE METABOLIC PANE Bill 04-12-2024 Albumin [Mass/Vol] 4.8 g/dL Normal 3.2-5.3 [facility] Comment on above: Performed By: #### C BCA, CMP, 3039-3 #### [facility] ([id number]) [address] [place] [address] 33124 ALP [Catalytic activity/Vol] 51 U/L Normal 39-130 [facility] Comment on above: Performed By: #### C BCA, CMP, 3039-3 #### [facility] ([id number]) [address] [place] [address] 16828 ALT [Catalytic activity/Vol] 14 U/L Normal 0-31 [facility] Comment on above: Performed By: #### C BCA, CMP, 3039-3 #### [facility] ([id number]) [address] [place] [address] 70099 Anion gap [Moles/Vol] 7 mmol/L Normal 5-15 [facility] Comment on above: Performed By: #### C BCA, CMP, 3039-3 #### [facility] ([id number]) [address] [place] [address] 63244 AST [Catalytic activity/Vol] 21 U/L Normal 0-41 [facility] Comment on above: Performed By: #### C BCA, CMP, 3039-3 #### [facility] ([id number]) [address] [place] [address] 29921 Bilirubin [Mass/Vol] 0.4 mg/dL Normal 0.3-1.2 [facility] Comment on above: Performed By: #### C CANDACE HARMAN, 3039-3 #### [facility] ([id number]) [address] [place] [address] 89142 Calcium [Mass/Vol] 9.0 mg/dL Normal 8.5-10.5 [facility] Comment on above: Performed By: #### C CANDACE HARMAN, 3 #### [facility] ([id number]) [address] [place] [address] 61137 Chloride [Moles/Vol] 103 mmol/L Normal 98-109 [facility] Comment on above: Performed By: #### Jairon HARMAN CMP, 3 #### [facility] ([id number]) [address] [place] [address] 02093 CO2 [Moles/Vol] 24 mmol/L Normal 22-32 [facility] Comment on above: Performed By: #### C CANDACE HARMAN, 3 #### [facility] ([id number]) [address] [place] [address] 99783 Creatinine [Mass/Vol] 0.79 mg/dL Normal 0.40-1.00 [facility] Comment on above: Result Comment: METH OD TRACEABLE TO IDMS STANDARD Performed By: #### C CANDACE HARMAN, 3039-3 #### [facility] ([id number]) [address] [place] [address] 01405 eGFR (CKD-EPI) NON-RACE DEPENDENT >90 Normal >59 [facility] Comment on above: Result Comment: Reported eGFR is based on the CKD-EPI 2020 equation that does not use a race coefficient. Performed By: #### C CANDACE HARMAN, 3039-3 #### [facility] ([id number]) [address] [place] [address]30 Glucose [Mass/Vol] 108 mg/dL High 65-99 [facility] Comment on above: Performed By: #### C KIMANI CMP, 0-3 #### [facility] ([id number]) [address] [place] [address] 17967 Potassium [Moles/Vol] 4.0 mmol/L Normal 3.5-5.0 [facility] Comment on above: Performed By: #### C KIMANI [facility], 0-3 #### [facility] ([id number]) [address] [place] [address] 02429 Protein [Mass/Vol] 7.4 g/dL Normal 6.0-8.0 [facility] Comment on above: Performed By: #### Jairon HARMAN [facility], 3039-3 #### [facility] ([id number]) [address] [place] [address] 27609 Sodium [Moles/Vol] 134 mmol/L Normal 134-146 [facility] Comment on above: Performed By: #### Jairon HARMAN [facility], 3040-3 #### [facility] ([id number]) [address] [place] [address] 04327 Urea nitrogen [Mass/Vol] 13 mg/dL Normal 5-23 [facility] Comment on above: Performed By: #### Jairon HARMAN CMP, 3040-3 #### [facility] ([id number]) [address] [place] [address] [address] ABDOMEN AND PELVIS W CONT on [...] Reyez MD on 04/12/2024 2:35 PM Normal [facility] HCG ( test) Ql (U)o n 04-12-2024 Beta HCG ( test) Ql (U) Negative Normal NEG [facility] Comment on above: Performed By: #### 2 106-3 #### [facility] ([id number]) [address] [place] [address]286 LIPASEon 04-12-2024 Lipase [Catalytic activity/Vol] 34 U/L Normal 17-40 [facility] Comment on above: Performed By: #### C BCA, CMP, 3040-3 #### [facility] ([id number]) [address] [place] [address] 84622 URN MACROSCOPIC NURon 2023 BILIRUBIN ROSA MARIA Negative Normal NEG [facility] Comment on above: Performed By: #### N UM #### [facility] ([id number]) [address] [place] [address] 88673 BLOOD/HGB ROSA MARIA MODERATE Abnormal NEG [facility] Comment on above: Performed By: #### N UM #### [facility] ([id number]) [address] [place] [address] 26965 GLUCOSE ROSA MARIA Negative Normal NEG [facility] Comment on above: Performed By: #### N UM #### [facility] ([id number]) [address] [place] [address], [place] [address] KETONES ROSA MARIA Negative Normal NEG [facility] Comment on above: Performed By: #### N UM #### [facility] ([id number]) [address] [place] [address], [place] [address] LEUKOCYTE ESTERASE ROSA MARIA Negative Normal NEG [facility] Comment on above: Performed By: #### N UM #### [facility] ([id number]) [address] [place] [address], [place] [address] NITRITE ROSA MARIA Negative Normal NEG [facility] Comment on above: Performed By: #### N UM #### [facility] ([id number]) [address] [place] [address] [place] [address] PH ROSA MARIA 5.5 Normal 5.0-8.5 [facility] Comment on above: Performed By: #### N UM #### [facility] ([id number]) [address] [place] [address], [place] [address] PROTEIN ROSA MARIA Negative Normal NEG [facility] Comment on above: Performed By: #### N UM #### [facility] ([id number]) [address] [place] [address], [place] [address] SPECIFIC GRAVITY ROSA MARIA 1.025 Normal 1.003-1.035 [facility] Comment on above: Performed By: #### N UM #### [facility] ([id number]) [address] [place] [address], [place] [address] UROBILINOGEN ROSA MARIA 0.2 eu/dL Normal <1.1 [facility] Comment on above: Performed By: #### N UM #### [facility] ([id number]) [address] [place] [address], [place] [address] CBC AND AUTO DIFFon 11-23-19 24 ABSOLUTE BASOPHIL 0.0 X10E9/L Normal 0.0-0.2 [facility] Comment on above: Performed By: #### Jairon HARMAN CMP, 3039-08 #### [facility] ([id number]) [address] [place] [address]31 ABSOLUTE NEUTROPHIL 4.3 X10E9/L Normal 1.5-6.6 [facility] Comment on above: Performed By: #### Jairon HARMAN CMP, 3039-3 #### [facility] ([id number]) [address] [place] [address] 39061 Basophils/100 WBC (Bld) 0.7 % Normal [facility] Comment on above: Performed By: #### Jairon HARMAN CMP, 3039-08 #### [facility] ([id number]) [address] [place] [address]15 Eosinophils (Bld) [#/Vol] 0.1 10*3/uL Normal 0.0-0.4 [facility] Comment on above: Performed By: #### Jairon HARMAN CMP, 3039-08 #### [facility] ([id number]) [address] [place] [address] 30154 Eosinophils/100 WBC (Bld) 1.3 % Normal [facility] Comment on above: Performed By: #### Jairon HARMAN CMP, 3039-08 #### [facility] ([id number]) [address] [place] [address] 88092 Erythrocyte distribution width (RBC) [Ratio] 14.1 % Normal 11.5-15.0 [facility] Comment on above: Performed By: #### Jairon HARMAN CMP, 3 #### [facility] ([id number]) [address] [place] [address] 68634 Hematocrit (Bld) [Volume fraction] 35.1 % Normal 35-47 [facility] Comment on above: Performed By: #### Jairon HARMAN CMP, 3039-3 #### [facility] ([id number]) [address] [place] [address] 46222 Hemoglobin (Bld) [Mass/Vol] 12.4 g/dL Normal 11.7-15.5 [facility] Comment on above: Performed By: #### Jairon HARMAN CMP, 0-3 #### [facility] ([id number]) [address] [place] [address] 95766 Lymphocytes (Bld) [#/Vol] 1.1 10*3/uL Normal 1.0-3.5 [facility] Comment on above: Performed By: #### Jairon HARMAN CMP, 3 #### [facility] ([id number]) [address] [place] [address] 77228 Lymphocytes/100 WBC (Bld) 18.5 % Normal [facility] Comment on above: Performed By: #### Jairon HARMAN CMP, 3 #### [facility] ([id number]) [address] [place] [address] 75304 MCH (RBC) [Entitic mass] 29.7 pg Normal 27-34 [facility] Comment on above: Performed By: #### Jairon HARMAN CMP, 3 #### [facility] ([id number]) [address] [place] [address] 53132 MCHC (RBC) [Mass/Vol] 35.3 g/dL Normal 32-36 [facility] Comment on above: Performed By: #### Jairon HARMAN CMP, 3 #### [facility] ([id number]) [address] [place] [address] 08442 MCV (RBC) [Entitic vol] 84 fL Normal 80-100 [facility] Comment on above: Performed By: #### Jairon HARMAN CMP, 3039-3 #### [facility] ([id number]) [address] [place] [address] 55010 Monocytes (Bld) [#/Vol] 0.6 10*3/uL Normal 0-0.9 [facility] Comment on above: Performed By: #### Jairon HARMAN CMP, 3040-3 #### [facility] ([id number]) [address] [place] [address] 46816 Monocytes/100 WBC (Bld) 10.3 % Normal [facility] Comment on above: Performed By: #### Jairon HARMAN CMP, 3039-08 #### [facility] ([id number]) [address] [place] [address] 47961 Neutrophils/100 WBC (Bld) 69.2 % Normal [facility] Comment on above: Performed By: #### Jairon HARMAN CMP, 3039-08 #### [facility] ([id number]) [address] [place] [address] 76927 Platelet mean volume (Bld) [Entitic vol] 9.8 fL Normal 7-12 [facility] Comment on above: Performed By: #### Jairon HARMAN CMP, 3039-08 #### [facility] ([id number]) [address] [place] [address] 60259 Platelets (Bld) [#/Vol] 160 10*3/uL Normal 150-450 [facility] Comment on above: Performed By: #### Jairon HARMAN CMP, 3039-08 #### [facility] ([id number]) [address] [place] [address] 87603 RBC COUNT 4.17 X10E12/L Normal 3.80-5.20 [facility] Comment on above: Performed By: #### Jairon HARMAN CMP, 3039-08 #### [facility] ([id number]) [address] [place] [address] 42319 WBC (Bld) [#/Vol] 6.2 10*3/uL Normal 4.0-11.0 [facility] Comment on above: Performed By: #### C BCA, CMP, 3039-3 #### [facility] ([id number]) [address] [place] [address] 28905 COMPREHENSIVE METABOLIC PANE Bill 11-23-2023 Albumin [Mass/Vol] 4.2 g/dL Normal 3.2-5.3 [facility] Comment on above: Performed By: #### C BCA, CMP, 3039-3 #### [facility] ([id number]) [address] [place] [address] 65592 ALP [Catalytic activity/Vol] 50 U/L Normal 39-130 [facility] Comment on above: Performed By: #### C BCA, CMP, 3039-3 #### [facility] ([id number]) [address] [place] [address] 18177 ALT [Catalytic activity/Vol] 18 U/L Normal 0-31 [facility] Comment on above: Performed By: #### C BCA, CMP, 3039-3 #### [facility] ([id number]) [address] [place] [address] 89618 Anion gap [Moles/Vol] 5 mmol/L Normal 5-15 [facility] Comment on above: Performed By: #### Jairon BCA, CMP, 3039-3 #### [facility] ([id number]) [address] [place] [address] 06015 AST [Catalytic activity/Vol] 20 U/L Normal 0-41 [facility] Comment on above: Performed By: #### C BCA, CMP, 3039-3 #### [facility] ([id number]) [address] [place] [address] 89473 Bilirubin [Mass/Vol] 0.2 mg/dL Low 0.3-1.2 [facility] Comment on above: Performed By: #### C BCA, CMP, 3039-3 #### [facility] ([id number]) [address] [place] [address] 01343 Calcium [Mass/Vol] 8.8 mg/dL Normal 8.5-10.5 [facility] Comment on above: Performed By: #### C CANDACE HARMAN, 3040-3 #### [facility] ([id number]) [address] [place] [address] 11499 Chloride [Moles/Vol] 104 mmol/L Normal 98-109 [facility] Comment on above: Performed By: #### C CANDACE HARMAN, 3039-3 #### [facility] ([id number]) [address] [place] [address] 62685 CO2 [Moles/Vol] 25 mmol/L Normal 22-32 [facility] Comment on above: Performed By: #### Jairon HARMAN CMP, 3039-3 #### [facility] ([id number]) [address] [place] [address] 95204 Creatinine [Mass/Vol] 0.63 mg/dL Normal 0.40-1.00 [facility] Comment on above: Result Comment: METH OD TRACEABLE TO IDMS STANDARD Performed By: #### C CANDACE HARMAN, 0-3 #### [facility] ([id number]) [address] [place] [address] 05174 eGFR (CKD-EPI) NON-RACE DEPENDENT >90 Normal >59 [facility] Comment on above: Result Comment: Reported eGFR is based on the CKD-EPI 2021 equation that does not use a race coefficient. Performed By: #### C CANDACE HARMAN, 0-3 #### [facility] ([id number]) [address] [place] [address] 66782 Glucose [Mass/Vol] 116 mg/dL High 65-99 [facility] Comment on above: Performed By: #### C CANDACE HARMAN, 0-3 #### [facility] ([id number]) [address] [place] [address] 72772 Potassium [Moles/Vol] 3.8 mmol/L Normal 3.5-5.0 [facility] Comment on above: Performed By: #### C CANDACE HARMAN, 3040-3 #### [facility] ([id number]) [address] [place] [address] 36034 Protein [Mass/Vol] 6.7 g/dL Normal 6.0-8.0 [facility] Comment on above: Performed By: #### C CANDACE HARMAN, 3039-3 #### [facility] ([id number]) 02 [place] [id number] Sodium [Moles/Vol] 134 mmol/L Normal 134-146 [facility] Comment on above: Performed By: #### Jairon HARMAN CMP, 3039-3 #### [facility] ([id number]) [address] [place] [address] Urea nitrogen [Mass/Vol] 10 mg/dL Normal 5-23 [facility] Comment on above: Performed By: #### C CANDACE HARMAN, 3039-3 #### [facility] ([id number]) [address] [place] [address] HCG ( test) Ql (U)o n 11-23-2023 Beta HCG ( test) Ql (U) Negative Normal NEG [facility] Comment on above: Performed By: #### 2 106-3 #### [facility] ([id number]) [address] [place] [id number] LIPASEon 11-23-2023 Lipase [Catalytic activity/Vol] 49 U/L High 17-40 [facility] Comment on above: Performed By: #### C KIMANI CMP, 0-3 #### [facility] ([id number]) [address] [place] [address] URN MACROSCOPIC NURon 2023 BILIRUBIN ROAS MARIA Negative Normal NEG [facility] Comment on above: Performed By: #### N UM #### [facility] ([id number]) [address] [place] [address] [place] [address] BLOOD/HGB ROSA MARIA Negative Normal NEG [facility] Comment on above: Performed By: #### N UM #### [facility] ([id number]) [address] [place] [address] [place] [address] GLUCOSE ROSA MARIA Negative Normal NEG [facility] Comment on above: Performed By: #### N UM #### [facility] ([id number]) [address] [place] [address] [place] [address] KETONES ROSA MARIA Negative Normal NEG [facility] Comment on above: Performed By: #### N UM #### [facility] ([id number]) [address] [place] [address] [place] [address] LEUKOCYTE ESTERASE ROSA MARIA Negative Normal NEG [facility] Comment on above: Performed By: #### N UM #### [facility] ([id number]) [address] [place] [address] [place] [address] NITRITE ROSA MARIA Negative Normal NEG [facility] Comment on above: Performed By: #### N UM #### [facility] ([id number]) [address] [place] [address] [place] [address] PH ROSA MARIA 7.0 Normal 5.0-8.5 [facility] Comment on above: Performed By: #### N UM #### [facility] ([id number]) [address] [place] [address] PROTEIN ROSA MARIA Negative Normal NEG [facility] Comment on above: Performed By: #### N UM #### [facility] ([id number]) [address] [place] [address] [place] [address] SPECIFIC GRAVITY ROSA MARIA 1.010 Normal 1.003-1.035 [facility] Comment on above: Performed By: #### N UM #### [facility] ([id number]) [address] [place] [address] UROBILINOGEN ROSA MARIA 0.2 eu/dL Normal <1.1 [facility] Comment on above: Performed By: #### N UM #### [facility] ([id number]) [address] [place] [address] H PYLORI ANTIBODY IGGon 06-30 H. PYLORI IGG ABS 0.46 Index Value Normal 0.00-0.79 [facility] Comment on above: Result Comment: Nega tive <0.80 Equivocal 0.80 - 0.89 Positive >0.89 Performed By: #### H PYLLC #### [facility] [address] [place] [address] Dr. Donna Cornejo AMYLASEon 07-21-2022 Amylase [Catalytic activity/Vol] 83 U/L Normal 25-115 [facility] Comment on above: Performed By: #### A MY, CMP, LIPA, LIPID, T7, TSH #### [facility] [address] [place] [address] Dr. Donna Cornejo CBC AUTO DIFFon 07-21-2022 BASO # 0.0 103/ul Normal 0.0-0.1 [facility] Comment on above: Performed By: #### C BC #### [facility] [address] [place] [address] Dr. Donna Cornejo Basophils/100 WBC (Bld) 0.5 % Normal 0.2-2.0 [facility] Comment on above: Performed By: #### C BC #### [facility] [address] [place] [address] Dr. Donna Cornejo EO # 0.1 103/ul Normal 0.0-0.7 [facility] Comment on above: Performed By: #### C BC #### [facility] [address] [place] [address] Dr. Donna Cornejo Eosinophils/100 WBC (Bld) 1.7 % Normal 0.9-7.0 [facility] Comment on above: Performed By: #### C BC #### [facility] [address] [place] [address] Dr. Donna Cornejo Erythrocyte distribution width (RBC) [Ratio] 13.4 % Normal 11.0-15.0 [facility] Comment on above: Performed By: #### C BC #### [facility] [address] [place] [address] Dr. Donna Cornejo Hematocrit (Bld) [Volume fraction] 37.4 % Normal 36.0-48.0 [facility] Comment on above: Performed By: #### C BC #### [facility] [address] [place] [address] Dr. Donna Cornejo Hemoglobin (Bld) [Mass/Vol] 13.1 g/dL Normal 12.0-16.0 [facility] Comment on above: Performed By: #### C BC #### [facility] [address] [place] [address] Dr. Donna Cornejo IG # 0.01 10e3/ul Normal 0.00-0.03 [facility] Comment on above: Performed By: #### C BC #### [facility] [address] [place] [address] Dr. Donna Cornejo IG % 0.2 % Normal 0.0-0.5 [facility] Comment on above: Performed By: #### C BC #### [facility] [address] [place] [address] Dr. Donna Cornejo LYMPH # 2.5 103/ul Normal 1.2-3.8 [facility] Comment on above: Performed By: #### C BC #### [facility] [address] [place] [address] Dr. Donna Cornejo Lymphocytes/100 WBC (Bld) 41.8 % Normal 20.5-60.0 [facility] Comment on above: Performed By: #### C BC #### [facility] [address] [place] [address] Dr. Donna Cornejo MANUAL DIFF REQ NO Normal [facility] Comment on above: Performed By: #### C BC #### [facility] [address] [address] [address] Donna Cornejo MCH (RBC) [Entitic mass] 28.0 pg Normal 26.7-34.0 [facility] Comment on above: Performed By: #### C BC #### [facility] [address] [place] [address] Dr. Donna Cornejo MCHC (RBC) [Mass/Vol] 35.0 g/dL Normal 29.9-35.2 [facility] Comment on above: Performed By: #### C BC #### [facility] [address] [place] [address] Dr. Donna Cornejo MCV (RBC) [Entitic vol] 79.9 fL Critically low 81.0-99.0 [facility] Comment on above: Performed By: #### C BC #### [facility] [address] [place] [address] Dr. Donna Cornejo MONO # 0.5 103/ul Normal 0.3-0.8 [facility] Comment on above: Performed By: #### C BC #### [facility] [address] [place] [address] Dr. Donna Cornejo Monocytes/100 WBC (Bld) 8.5 % Normal 1.7-12.0 [facility] Comment on above: Performed By: #### C BC #### [facility] [address] [place] [address] Dr. Donna Cornejo NEUT # 2.8 103/ul Normal 1.4-6.5 [facility] Comment on above: Performed By: #### C BC #### [facility] [address] [place] [address] Dr. Donna Cornejo Neutrophils/100 WBC (Bld) 47.3 % Normal 43.0-75.0 [facility] Comment on above: Performed By: #### C BC #### [facility] [address] [place] [address] Dr. Donna Cornejo Platelet mean volume (Bld) [Entitic vol] 11.1 fL Normal 9.5-13.5 [facility] Comment on above: Performed By: #### C BC #### [facility] [address] [address] [address] Donna Cornejo PLT 187 103/ul Normal 150-450 [facility] Comment on above: Performed By: #### C BC #### [facility] [address] [address] [address] Donna Cornejo RBC 4.68 106/ul Normal 4.20-5.40 [facility] Comment on above: Performed By: #### C BC #### [facility] [address] [place] [address] Dr. Donna Cornejo WBC 6.0 103/ul Normal 4.0-11.0 [facility] Comment on above: Performed By: #### C BC #### [facility] [address] [place] [address] Dr. Donna Cornejo FREE THYROXINE INDEX T7on FTI 3.17 Normal 1.30-4.50 [facility] Comment on above: Performed By: #### A MY, CMP, LIPA, LIPID, T7, TSH #### [facility] [address] [place] [address] Dr. Donna Cornejo T3U 36.0 % Normal 30.0-39.0 [facility] Comment on above: Performed By: #### A MY, CMP, LIPA, LIPID, T7, TSH #### [facility] [address] [place] [address] Dr. Donna Cornejo T4 [Mass/Vol] 8.80 ug/dL Normal 4.80-13.90 [facility] Comment on above: Performed By: #### A MY, CMP, LIPA, LIPID, T7, TSH #### [facility] [address] [place] [address] Dr. Donna Cornejo GLYCOHEMOGLOBIN A1Con 2022 ADA RECOMMENDATION SEE BELOW Normal [facility] Comment on above: Result Comment: ADA RECOMMENDED LIMIT 4.0 - 6.0 ADA THERAPEUTIC TARGET < 7.0 ACTION SUGGESTED > 7.0 Performed By: #### A 1C #### [facility] [address] [address] [address] Donna Cornejo Glucose [Mass/Vol] 114 mg/dL Normal [facility] Comment on above: Performed By: #### A 1C #### [facility] [address] [address] [address] Donna Cornejo HbA1c (Bld) [Mass fraction] 5.6 % Normal 4.5-6.2 [facility] Comment on above: Performed By: #### A 1C #### [facility] [address] [address] [address] Donna Cornejo IRONon 07-21-2022 Iron [Mass/Vol] 55.0 ug/dL Normal 50.0-170.[address] [facility] Comment on above: Performed By: #### I JENNA #### [facility] [address] [place] [address] Dr. Donna Cornejo LIPASEon 07-21-2022 Lipase [Catalytic activity/Vol] 181.0 U/L Normal 73.0-393.0 [facility] Comment on above: Performed By: #### A MY, CMP, LIPA, LIPID, T7, TSH #### [facility] [address] [place] [address] Dr. Donna Cornejo LIPID PROFILEon 07-21-2022 CHOL-HDL RATIO NORM SEE BELOW Normal [facility] Comment on above: Result Comment: 3.3 - 4.4 LOW RISK 4.4 - 7.1 AVERAGE RISK 7.1 - 11.0 MODERATE RISK >11.0 HIGH RISK Performed By: #### A MY, CMP, LIPA, LIPID, T7, TSH #### [facility] [address] [address] [address] Donna Cornejo Cholesterol [Mass/Vol] 138 mg/dL Normal <=200 [facility] Comment on above: Performed By: #### A MY, CMP, LIPA, LIPID, T7, TSH #### [facility] [address] [address] [address] Donna Cornejo Cholesterol in HDL [Mass/Vol] 53 mg/dL Normal 40-60 [facility] Comment on above: Performed By: #### A MY, CMP, LIPA, LIPID, T7, TSH #### [facility] [address] [address] [address] Donna Cornejo Cholesterol in LDL [Mass/Vol] 73.0 mg/dL Normal [facility] Comment on above: Performed By: #### A MY, CMP, LIPA, LIPID, T7, TSH #### [facility] [address] [address] [address] Donna Cornejo Cholesterol.total/ Cholesterol in HDL [Mass ratio] 2.6 {ratio} Normal [facility] Comment on above: Performed By: #### A MY, CMP, LIPA, LIPID, T7, TSH #### [facility] [address] [address] [address] Donna Cornejo HDL NORMAL > or = 60 mg/dl - LO W CARDIOVASCULAR RISK <40 mg/dl - HIGH CARDIOVASCULAR RISK Normal [facility] Comment on above: Performed By: #### A MY, CMP, LIPA, LIPID, T7, TSH #### [facility] [address] [address] [address] Donna Cornejo LDL CALC NORMAL SEE BELOW Normal [facility] Comment on above: Result Comment: <100 mg/dl OPTIMAL 100 - 129 mg/dl NEAR OR ABOVE OPTIMAL 130 - 159 mg/dl BORDERLINE HIGH 160 - 189 mg/dl HIGH >190 mg/dl VERY HIGH Performed By: #### A MY, CMP, LIPA, LIPID, T7, TSH #### [facility] [address] [address] [address] Donna Cornejo Triglyceride [Mass/Vol] 60 mg/dL Normal <=150 [facility] Comment on above: Performed By: #### A MY, CMP, LIPA, LIPID, T7, TSH #### [facility] [address] [address] [address] Donna Cornejo VLDL CALC 12.0 mg/dL Normal [facility] Comment on above: Performed By: #### A MY, CMP, LIPA, LIPID, T7, TSH #### [facility] [address] [address] [address] Donna Cornejo PROF 14(COMP METB)on 023 Albumin [Mass/Vol] 4.2 g/dL Normal 3.4-5.0 [facility] Comment on above: Performed By: #### A MY, CMP, LIPA, LIPID, T7, TSH #### [facility] [address] [place] [address] Dr. Donna Cornejo Albumin/Globulin [Mass ratio] 1.4 {ratio} Normal [facility] Comment on above: Performed By: #### A MY, CMP, LIPA, LIPID, T7, TSH #### [facility] [address] [address] [address] Donna Cornejo ALP [Catalytic activity/Vol] 57 U/L Normal 46-116 [facility] Comment on above: Performed By: #### A MY, CMP, LIPA, LIPID, T7, TSH #### [facility] [address] [place] [address] Dr. Donna Cornejo ALT [Catalytic activity/Vol] 16 U/L Normal 14-59 [facility] Comment on above: Performed By: #### A MY, CMP, LIPA, LIPID, T7, TSH #### [facility] [address] [place] [address] Dr. Donna Cornejo Anion gap [Moles/Vol] 15.5 mmol/L Normal [facility] Comment on above: Performed By: #### A MY, CMP, LIPA, LIPID, T7, TSH #### [facility] [address] [address] [address] Donna Cornejo AST [Catalytic activity/Vol] 17 U/L Normal 15-37 [facility] Comment on above: Performed By: #### A MY, CMP, LIPA, LIPID, T7, TSH #### [facility] [address] [address] [address] Donna Cornejo Bilirubin [Mass/Vol] 0.3 mg/dL Normal 0.2-1.0 [facility] Comment on above: Performed By: #### A MY, CMP, LIPA, LIPID, T7, TSH #### [facility] [address] [address] [address] Donna Cornejo Calcium [Mass/Vol] 9.5 mg/dL Normal 8.5-10.1 [facility] Comment on above: Performed By: #### A MY, CMP, LIPA, LIPID, T7, TSH #### [facility] [address] [address] [address] Donna Cornejo Chloride [Moles/Vol] 102 mmol/L Normal 98-107 [facility] Comment on above: Performed By: #### A MY, CMP, LIPA, LIPID, T7, TSH #### [facility] [address] [address] [address] Donna Cornejo CO2 [Moles/Vol] 24.7 mmol/L Normal 21.0-32.0 [facility] Comment on above: Performed By: #### A MY, CMP, LIPA, LIPID, T7, TSH #### [facility] [address] [address] [address] Donna Cornejo Creatinine [Mass/Vol] 0.76 mg/dL Normal 0.55-1.02 [facility] Comment on above: Performed By: #### A MY, CMP, LIPA, LIPID, T7, TSH #### [facility] [address] [address] [address] Donna Cornejo EGFR-AF SWEDISH >60 Normal >=60 [facility] Comment on above: Performed By: #### A MY, CMP, LIPA, LIPID, T7, TSH #### [facility] [address] [address] [address] Donna Cornejo EGFR-NON AF SWEDISH >60 Normal >=60 [facility] Comment on above: Performed By: #### A MY, CMP, LIPA, LIPID, T7, TSH #### [facility] [address] [address] [address] Donna Cornejo Globulin (S) [Mass/Vol] 3.0 g/dL Normal [facility] Comment on above: Performed By: #### A MY, CMP, LIPA, LIPID, T7, TSH #### [facility] [address] [address] [address] Donna Cornejo Glucose [Mass/Vol] 109 mg/dL Critically high 74-106 [facility] Comment on above: Performed By: #### A MY, CMP, LIPA, LIPID, T7, TSH #### [facility] [address] [place] [address] Dr. Donna Cornejo Potassium [Moles/Vol] 4.2 mmol/L Normal 3.5-5.1 [facility] Comment on above: Performed By: #### A MY, CMP, LIPA, LIPID, T7, TSH #### [facility] [address] [place] [address] Dr. Donna Cornejo Protein [Mass/Vol] 7.2 g/dL Normal 6.4-8.2 [facility] Comment on above: Performed By: #### A MY, CMP, LIPA, LIPID, T7, TSH #### [facility] [address] [place] [address] Dr. Donna Cornejo Sodium [Moles/Vol] 138 mmol/L Normal 136-145 [facility] Comment on above: Performed By: #### A MY, CMP, LIPA, LIPID, T7, TSH #### [facility] [address] [place] [address] Dr. Donna Cornejo Urea nitrogen [Mass/Vol] 11.0 mg/dL Normal 7.0-18.0 [facility] Comment on above: Performed By: #### A MY, CMP, LIPA, LIPID, T7, TSH #### [facility] [address] [place] [address] Dr. Donna Cornejo Urea nitrogen/Creatinin e [Mass ratio] 14.5 mg/mg Normal [facility] Comment on above: Performed By: #### A MY, CMP, LIPA, LIPID, T7, TSH #### [facility] [address] [place] [address] Dr. Donna Cornejo TSHon 07-21-2022 TSH 1.608 uIU/mL Normal 0.358-3.740 [facility] Comment on above: Performed By: #### A MY, CMP, LIPA, LIPID, T7, TSH #### [facility] [address] [place] [address] Dr. Donna Cornejo General Surgery Office/Clini c [...] low FODMAP diet; may need to see light armored reconnaissance officer about possible food allergies; call with problems/questions. [...] inactivated - Not Given Patient Refuses Normal [facility] Comment on above: Result Comment: [...] Postprandial abdominal bloating Seasonal allergic rhinitis Normal [facility] Pathology Noteon 08-25-2021 Pathology Note [id number]#[id number]:127 Normal [facility] Operative Reporton Operative Report [id number]#[id number]:127 Normal [facility] Consent for Procedure/Surger yon 08-07-2021 Consent for Procedure/Surgery [id number]#[id number]:127 Normal [facility] Ambulatory Visit Summaryon 0 08-06-2021 [...] disc disease Migraine Seasonal allergic rhinitis Normal [facility] Physician Referralon 022 Physician Referral [id number]#1.00CD:127 Normal [facility] Vital Signs Date Time Vital Sign Value Performing Clinician Faci lity 06-27-2024 14:53-0500 Body mass index (BMI) [Ratio] 20.14 kg/m2 Renea Phipps MD [facility] 06-27-2024 14:53-0500 Body weight 54.88 kg Renea Phipps MD [facility] Phone[facility] 06-27-2024 14:53-0500 Diastolic blood pressure 78 mm[Hg] Renea Phipps MD Work Phone: [facility] 06-27-2024 14:53-0500 Heart rate 87 /min [facility] 06-27-2024 14:53-0500 Systolic blood pressure 126 mm[Hg] Renea Phipps MD Work Phone: [facility] 06-22-2024 11:43-0500 Body temperature 98.1 [degF] Delfino Thomas DO Work Phone: [facility] 06-22-2024 11:43-0500 Diastolic blood pressure 64 mm[Hg] Delfino Thomas DO Work Phone: [facility] 06-22-2024 11:43-0500 Heart rate 75 /min Delfino Thomas DO [facility] 06-22-2024 11:43-0500 Respiratory rate 18 /min Delfino Thomas DO Work Phone[facility] 06-22-2024 11:43-0500 SaO2% (BldA) [Mass fraction] 98 % Delfino Thomas DO Work Phone[facility] 06-22-2024 11:43-0500 Systolic blood pressure 109 mm[Hg] Delfino Thomas DO Work Phone: [facility] 06-22-2024 04:13-0500 Body height 165.1 cm Delfino Faustino GLOVER Work Phone[facility] 06-22-2024 04:13-0500 Body mass index (BMI) [Ratio] 19.64 kg/m2 Delfino Thomas DO Work Phone: [facility] 06-22-2024 04:050 Body weight 53.52 kg Delfino Thomas DO Work Phone: [facility] Encounters Encounter Date Encounter Type Care Provider Facility Start: 08-01-2024 ambulatory [facility] Start: 07-14-2024 End: 07-14-2024 Office outpatient visit 15 minutes Jose Kim MD Work Phone: [facility] Comment on above: Neurogenic claudicat ion (Primary Dx) Start: 07-14-2024 End: 07-14-2024 ambulatory [facility] Octavio [facility] Start: 07-07-2024 End: 07-07-2024 ambulatory DELFINO Ye [facility] Start: 07-05-2024 End: [facility]: 07-01-[facility]24 ambulatory [facility] Start: 06-27-2024 End: 06-27-2024 Office outpatient new 45 minutes Renea Phipps MD Work Phone: [facility] Comment on above: Back pain; Atrophy of muscle of right thigh Start: 06-27-2024 End: 06-27-2024 [facility] Start: 06-22-2024 End: 06-22-2024 ambulatory [facility] Start: 06-21-2024 End: 06-22-2024 Emergency department patient visit Yunior Thomas MD Work Phone: [facility] Comment on above: Back pain (Primary D x); Atrophy of muscle of right thigh Start: 06-18-2024 End: 06-18-2024 Emergency department patient visit [facility] Start: 04-14-2024 End: 04-14-2024 ambulatory LEONIDAS JUDD [facility] Start: 04-12-2024 End: 04-12-2024 Emergency department patient visit FENG GREENBERG [facility] Start: 11-23-2023 End: 11-23-2023 Emergency department patient visit FENG GREENBERG [facility] Start: 07-23-2022 Encounter for genera l adult medical examination without abnormal findings DR FENG GREENBERG . [facility] Start: 07-21-2022 End: 07-22-2022 [...] Td Vaccines (9 - Td or Tdap) [facility] Start: 06-27-2025 Adult BMI Screening Adult BMI Screen ing [facility] Start: 06-27-2025 Tobacco Screening Tobacco Screening [facility] Start: 07-14-2024 End: 07-14-2024 Patient encounter procedure 07/14/2024 2:10 PM EST Office Visit [facility] [place] [address] [place] [address] Jose Kim MD [address], [address] [address] [facility] Start: 07-07-2024 End: 07-07-2024 Patient encounter procedure 07/07/2024 3:30 PM EST Appointment [facility] [address] [place] [address] Delfino Thomas, DO [address] [place] [address] [facility] Start: 07-05-2024 End: 07-05-2024 Patient encounter procedure 07/05/2024 10:45 AM EST Appointment [facility] [address] [place] [address] [facility] Start: 06-22-2024 End: 06-22-2025 US.doppler Lower extremity artery - bilateral Vas art duplex lwr bilateral Vascular Ultrasound Routine Back pain Atrophy of muscle of right thigh Expected: 06/22/2024, Expires: 06/22/2025 [employer] Phone: Comment on above: Expected: 06/22/2024 , Expires: 06/22/2025 Start: 02-28-2024 Influenza vaccination Influenza Vacc ine [facility] Start: 01-22-2012 Screening for malign ant neoplasm of cervix Pap Smear [facility] Start: 2003 Depression Screening Depression Scre ening [facility] Oxygen Therapy - Maintain SpO2: 90%; *BANKING MANAGER Guidelines for O2: Yes; Document: \[employer].[email or web address]\epi c\EPIC_Reference\Orders\ Respiratory Care Guidelines\CPG Oxygen 2022.pdf Oxygen Therapy - Maintain SpO2: 90%; *BANKING MANAGER Guidelines for O2: Yes; Document: \[email or web address]\ep ic\EPIC_Reference\Order s\Respiratory Care Guidelines\CPG Oxygen 2022.pdf Respiratory Care Routine As Needed until discontinued starting 06/22/2024 [employer] Work Phone: Comment on above: As Needed until disc ontinued starting 06/22/2024 Payers Date Payer Category Payer Medicaid [employer] [id number] 1991 Unknown [id number] 1991 Unknown [id number] [id number] 1991 Unknown [id number] [id number] 1991 Unknown [id number] 2.16840.1.239941.3.579.2.1286 1991 Unknown [id number] 2.16840.1.996501.3.579.2.1286 1991 Unknown [id number] 2.16840.1.495928.3.579.2.1286 1991 Unknown [id number] 2.16840.1.241447.3.579.2.1286 1991 Unknown [id number] 2.16840.1.437222.3.579.2.128 1991 Unknown [id number] 2.16840.1.388959.3.579.2.1286 1991 Unknown [id number] 2.16840.1.746426.3.579.2.128 1991 Unknown [id number] 2.16840.1.618984.3.579.2.1286 1991 Unknown [id number] 2.16840.1.537545.3.579.2.1286 1991 Unknown [id number] [id number]86 1991 Unknown [id number] [id number]86 1991 Unknown [id number] [id number] 1958 Medicaid [id number] 1958 Unknown [id number] Social History Date Type Detail Facility [facility]: [facility]23 [facility] History of tobacco use Current smoker [facility] History of tobacco use Cigarette Smoker [facility] Start: 11-23-2023 Tobacco use and exposure Smokeless tobacco non-user [facility] Start: 06-21-2024 End: 07-14-2024 Alcoholic beverage intake Lifetime non-drinker (finding) [facility] Start: 08-09-2020 End: 06-22-2024 History of Social function [facility] Start: 08-09-2020 End: 06-22-2024 [facility] Utilities [facility] Has the [employer], [employer], [employer], or water company threatened to shut off services in your home in past 12Mo No [facility] Adolescent depressio n screening assessment 0 [facility] Start: 1991 Sex assigned at Not on file [facility] Start: 02-01-2015 Sex Female (finding) [facility] Clinical Notes 08-06-2021 to 07-14-2024 Jose Kim [...] Jose Kim MD, PRINCESS, RPVI, FSVS, FACS [facility] This note was created with the assistance of a speech recognition program. While intending to generate a timely document that accurately reflects the content of the visit, no guarantee can be provided that every grammatical or spelling mistake has been or will be identified or corrected. Thank you for your understanding. documented in this encounter [facility] 07-14-2024 Evaluation + Plan note Associated Problem(s): Neurogenic claudication No evidence of significant peripheral arterial disease. Recommend evaluation and management by neuro spine. She is planned to have procedure. [facility] 07-14-2024 Miscellaneous Notes Associated Problem(s): Neurogenic claudication No evidence of significant peripheral arterial disease. Recommend evaluation and management by neuro spine. She is planned to have procedure. documented in this encounter [facility] 06-27-2024 History of Presen t illness Narrative Images from the original note were not included. [facility] V[facility]ULAR [address] [id number] Subjective: Patient ID: Doug Gomez is a [...] Renea Phipps MD documented in this encounter [facility] 06-22-2024 Nurse Note Patient IV has been removed. Patient educated and has no questions or concerns. [facility] 06-22-2024 Nurse Note Patient IV has been removed. Patient educated and has no questions or concerns. documented in this encounter [facility] 06-22-2024 Plan of care note Problem: Pain Goal: Patient goal is pain score less than 4, able to rest, and participant in treatment plan as appropriate Description: INTERVENTIONS: 1. Encourage patient or legal branch sales and service representative to report early pain and [...] per policy 9. Teach patient or legal branch sales and service representative interventions for comforting Outcome: Adequate [...] at the bedside 7. Instruct patient/ patient branch sales and service representative about use of safety devices 8. Include patient/ patient branch sales and service representative in decisions related to safety [...] hygiene technique. 7. Identify and instruct patient/patient branch sales and service representative in use of appropriate isolation precautions for identified infection/symptoms. 8. Provide and discuss with patient/patient branch sales and service representative on educational MDRO sheet. 9. Encourage and monitor nutritional status daily and consult principal web developer if indicated. 10. Implement neutropenic guidelines as needed. Outcome: Adequate for Discharge Problem: Knowledge Deficit Goal: Patient/patient branch sales and service representative demonstrates understanding of disease process, [...] Score of =/> 25 or indicated by [facility] Assessment Goal: Patient should be free from fall Description: Interventions: 1. [place] to environment 2. Hourly rounds addressing the [...] non-skid footwear 11. Teach patient and patient branch sales and service representative to maintain environment for safety [...] (cane, walker) within reach 19. Request patient branch sales and service representative bring adaptive equipment/mobility aids from home or obtain and provide as needed 20. Consult pharmacy regarding effects of med's affecting mobility, cognition, and alternatives 21. Obtain physician order for PT if risk factors associated with mobility are present 22. Obtain physician order for OT as appropriate 23. Utilize diversional activities 24. Educate patient and patient branch sales and service representative how to maintain a safe environment during visitation times (notify nurse prior to leaving bedside) 25. Consider appropriateness of medical or non-medical radiation therapist 26. Set up voiding schedule as appropriate [...] pt experiencing intermittent numbness/tingling in RLE. WCTM. [facility] 06-22-2024 Miscellaneous Notes Problem: Pain Goal: Patient goal is pain score less than 4, able to rest, and participant in treatment plan as appropriate Description: INTERVENTIONS: 1. Encourage patient or legal branch sales and service representative to report early pain and [...] per policy 9. Teach patient or legal branch sales and service representative interventions for comforting Outcome: Adequate [...] at the bedside 7. Instruct patient/ patient branch sales and service representative about use of safety devices 8. Include patient/ patient branch sales and service representative in decisions related to safety [...] hygiene technique. 7. Identify and instruct patient/patient branch sales and service representative in use of appropriate isolation precautions for identified infection/symptoms. 8. Provide and discuss with patient/patient branch sales and service representative on educational MDRO sheet. 9. Encourage and monitor nutritional status daily and consult principal web developer if indicated. 10. Implement neutropenic guidelines as needed. Outcome: Adequate for Discharge Problem: Knowledge Deficit Goal: Patient/patient branch sales and service representative demonstrates understanding of disease process, [...] Score of =/> 25 or indicated by [facility] Assessment Goal: Patient should be free from fall Description: Interventions: 1. [place] to environment 2. Hourly rounds addressing the [...] non-skid footwear 11. Teach patient and patient branch sales and service representative to maintain environment for safety [...] (cane, walker) within reach 19. Request patient branch sales and service representative bring adaptive equipment/mobility aids from home or obtain and provide as needed 20. Consult pharmacy regarding effects of med's affecting mobility, cognition, and alternatives 21. Obtain physician order for PT if risk factors associated with mobility are present 22. Obtain physician order for OT as appropriate 23. Utilize diversional activities 24. Educate patient and patient branch sales and service representative how to maintain a safe environment during visitation times (notify nurse prior to leaving bedside) 25. Consider appropriateness of medical or non-medical radiation therapist 26. Set up voiding schedule as appropriate [...] at the bedside 7. Instruct patient/ patient branch sales and service representative about use of safety devices 8. Include patient/ patient branch sales and service representative in decisions related to safety Outcome: Progressing Note: Evaluation of progress towards goal: Pt is free from falls. Bed is in lowest position and brakes are locked. Proper identification is used. Problem: Knowledge Deficit Goal: Patient/patient branch sales and service representative demonstrates understanding of disease process, [...] be free from fall Description: Interventions: 1. [place] to environment 2. Hourly rounds addressing the [...] non-skid footwear 11. Teach patient and patient branch sales and service representative to maintain environment for safety [...] (cane, walker) within reach 19. Request patient branch sales and service representative bring adaptive equipment/mobility aids from home or obtain and provide as needed 20. Consult pharmacy regarding effects of med's affecting mobility, cognition, and alternatives 21. Obtain physician order for PT if risk factors associated with mobility are present 22. Obtain physician order for OT as appropriate 23. Utilize diversional activities 24. Educate patient and patient branch sales and service representative how to maintain a safe environment during visitation times (notify nurse prior to leaving bedside) 25. Consider appropriateness of medical or non-medical radiation therapist 26. Set up voiding schedule as appropriate [...] Description: INTERVENTIONS: 1. Encourage patient or legal branch sales and service representative to report early pain and [...] per policy 9. Teach patient or legal branch sales and service representative interventions for comforting Outcome: Progressing [...] at the bedside 7. Instruct patient/ patient branch sales and service representative about use of safety devices 8. Include patient/ patient branch sales and service representative in decisions related to safety [...] hygiene technique. 7. Identify and instruct patient/patient branch sales and service representative in use of appropriate isolation precautions for identified infection/symptoms. 8. Provide and discuss with patient/patient branch sales and service representative on educational MDRO sheet. 9. Encourage and monitor nutritional status daily and consult principal web developer if indicated. 10. Implement neutropenic guidelines as needed. Outcome: Progressing Note: Evaluation of progress towards goal: Problem: Moderate - High Risk Fall Score Description: Lawson Fall Score of =/> 25 or indicated by [facility] Assessment Goal: Patient should be free from fall Description: Interventions: 1. [place] to environment 2. Hourly rounds addressing the [...] non-skid footwear 11. Teach patient and patient branch sales and service representative to maintain environment for safety [...] (cane, walker) within reach 19. Request patient branch sales and service representative bring adaptive equipment/mobility aids from home or obtain and provide as needed 20. Consult pharmacy regarding effects of med's affecting mobility, cognition, and alternatives 21. Obtain physician order for PT if risk factors associated with mobility are present 22. Obtain physician order for OT as appropriate 23. Utilize diversional activities 24. Educate patient and patient branch sales and service representative how to maintain a safe environment during visitation times (notify nurse prior to leaving bedside) 25. Consider appropriateness of medical or non-medical radiation therapist 26. Set up voiding schedule as appropriate [...] progress towards goal: documented in this encounter [facility] 06-22-2024 Hospital course Narrative Images from the original note were not included. ED Observation Discharge Summary BRIEF OVERVIEW Admitting Provider: Delfino Thomas, Discharge Provider: CAMI JENSEN PA-C Primary Care Physician: FENG GREENBERG MD [phone] Observation Services End Date and Time: No [...] evaluation treatment. Patient was initially seen in [place] [facility], transferred to [facility], and placed in ED observation for MRI/further evaluation. Patient currently is not having any color changes to her foot. Patient is feeling somewhat better, but continues to declined any significant pain treatment at this time. Patient had CT scan performed at [facility] that showed a bulging disc [...] and oriented to person, place, and time. [place] Coma Scale Eyes 4. Verbal 5. Motor 6. [place] Coma Total 15 Skin: Skin is warm [...] Your Medications These medications were sent to [facility]/pharmacy #[id number] AT [place] [address] gabapentin 300 mg capsule lidocaine 5 % [...] pursue inpatient stay. documented in this encounter [facility] 06-22-2024 Plan of care note Problem: [...] pt experiencing intermittent numbness/tingling in RLE. WCTM. [facility] 06-22-2024 Plan of care note Problem: Safety [...] at the bedside 7. Instruct patient/ patient branch sales and service representative about use of safety devices 8. Include patient/ patient branch sales and service representative in decisions related to safety Outcome: Progressing Note: Evaluation of progress towards goal: Pt is free from falls. Bed is in lowest position and brakes are locked. Proper identification is used. Problem: Knowledge Deficit Goal: Patient/patient branch sales and service representative demonstrates understanding of disease process, [...] be free from fall Description: Interventions: 1. [place] to environment 2. Hourly rounds addressing the [...] non-skid footwear 11. Teach patient and patient branch sales and service representative to maintain environment for safety [...] (cane, walker) within reach 19. Request patient branch sales and service representative bring adaptive equipment/mobility aids from home or obtain and provide as needed 20. Consult pharmacy regarding effects of med's affecting mobility, cognition, and alternatives 21. Obtain physician order for PT if risk factors associated with mobility are present 22. Obtain physician order for OT as appropriate 23. Utilize diversional activities 24. Educate patient and patient branch sales and service representative how to maintain a safe environment during visitation times (notify nurse prior to leaving bedside) 25. Consider appropriateness of medical or non-medical radiation therapist 26. Set up voiding schedule as appropriate (every 2 hours) Outcome: Progressing Note: Evaluation of progress towards goal: Pt educated on Fall Risk . Pt has non-slip socks on, 2 side rails up, up with assist. [facility] 06-22-2024 History and physical note Images from the original note were not included. ED Observation History and Physical Note PROVIDERS: Primary Care Physician: FENG GREENBERG MD [phone] Admitting Provider: Delfino Thomas [facility] START TIMES: ED Date: 06/22/2024 0013 [...] evaluation treatment. Patient was initially seen in [place] [facility], transferred to [facility], and placed in ED observation for MRI/further evaluation. Patient currently is not having any color changes to her foot. Patient is feeling somewhat better, but continues to declined any significant pain treatment at this time. Patient had CT scan performed at [facility] that showed a bulging disc [...] The case was discussed with the following senior energy consultant teams. Consulting Providers Provider Service Specialty [...] Code Status Information Code Status Full Code [facility] 06-22-2024 History and physical note Images from the original note were not included. ED Observation History and Physical Note PROVIDERS: Primary Care Physician: FENG GREENBERG MD [phone] Admitting Provider: Delfino Thomas DO CARE START [...] evaluation treatment. Patient was initially seen in [place] [facility], transferred to [facility], and placed in ED observation for MRI/further evaluation. Patient currently is not having any color changes to her foot. Patient is feeling somewhat better, but continues to declined any significant pain treatment at this time. Patient had CT scan performed at [facility] that showed a bulging disc [...] The case was discussed with the following senior energy consultant teams. Consulting Providers Provider Service Specialty [...] Pain Patients Only: The ASCVD Risk score (Lebanon DK, et al., 2019) failed to calculate [...] Status Full Code [facility] Plan of care note Problem: Pain Goal: Patient goal is pain score less than 4, able to rest, and participant in treatment plan as appropriate Description: INTERVENTIONS: 1. Encourage patient or legal branch sales and service representative to report early pain and [...] per policy 9. Teach patient or legal branch sales and service representative interventions for comforting Outcome: Progressing [...] at the bedside 7. Instruct patient/ patient branch sales and service representative about use of safety devices 8. Include patient/ patient branch sales and service representative in decisions related to safety [...] hygiene technique. 7. Identify and instruct patient/patient branch sales and service representative in use of appropriate isolation precautions for identified infection/symptoms. 8. Provide and discuss with patient/patient branch sales and service representative on educational MDRO sheet. 9. Encourage and monitor nutritional status daily and consult principal web developer if indicated. 10. Implement neutropenic guidelines as needed. Outcome: Progressing Note: Evaluation of progress towards goal: Problem: Moderate - High Risk Fall Score Description: Lawson Fall Score of =/> 25 or indicated by [facility] Assessment Goal: Patient should be free from fall Description: Interventions: 1. [place] to environment 2. Hourly rounds addressing the [...] non-skid footwear 11. Teach patient and patient branch sales and service representative to maintain environment for safety [...] (cane, walker) within reach 19. Request patient branch sales and service representative bring adaptive equipment/mobility aids from home or obtain and provide as needed 20. Consult pharmacy regarding effects of med's affecting mobility, cognition, and alternatives 21. Obtain physician order for PT if risk factors associated with mobility are present 22. Obtain physician order for OT as appropriate 23. Utilize diversional activities 24. Educate patient and patient branch sales and service representative how to maintain a safe environment during visitation times (notify nurse prior to leaving bedside) 25. Consider appropriateness of medical or non-medical radiation therapist 26. Set up voiding schedule as appropriate [...] Progressing Note: Evaluation of progress towards goal: [facility] 06-22-2024 Emergency department Triage note Patient presented to [place] ER due to losing muscle mass in her Rt buttock and RLE turning purple along with shaking. [facility] 06-22-2024 Emergency department Note Patient presented to [place] ER due to losing muscle mass in her Rt buttock and RLE turning purple along with shaking. documented in this encounter [facility] 08-06-2021 Note Chief Complaint consultation for RUQ [...] adapter, 2 puf (more content not included)... [facility] Comment on above: Result Comment: Elec tronically Signed By: POPPY VALDEZ, Fred Jain\Date and Time Signed: 08/06/21 15:12 EST Evaluation note Diagnosis Back pain- Primary Unspecified backache Back pain Unspecified backache Atrophy of muscle of right thigh Muscle wasting Muscular wasting and disuse atrophy, not elsewhere classified Trouble walking Difficulty in walking documented [facility]* Diagnosis Back pain Unspecified backache Atrophy of muscle of right thigh documented in [facility]* Diagnosis Neurogenic claudication- Primary Spinal stenosis of lumbar region [facility] Attachments The following attachments cannot be sent through Care Everywhere. * Upper Back Pain Discharge Instructions (Frisian) [facility] SystemInstructionsNot on file documented in this encounterPro[facility] SystemInstructionsNot on file [facility] in [facility] Summary Purpose Family History [...] section and content) DATE CREATED AUTHOR 09/15/2021 [facility] DATE CREATED AUTHOR AUTHOR'S ORGANIZ ATION 08/26/2022 [facility] DATE CREATED AUTHOR AUTHOR'S ORGANIZ ATION 06/23/2024 [facility] DATE CREATED AUTHOR AUTHOR'S ORGANIZ ATION 07/17/2024 [facility] DATE CREATED AUTHOR AUTHOR'S ORGANIZ ATION 08/10/2024 [facility] Reason for Visit (unrecogniz ed section and [...] right thigh Delfino Thomas, DO [address] [place] [address] Phone: tel: fax: [facility] [address] [place] [address] Phone: tel:[phone] fax: Referral ID Status Reason Start Date Expiration Date Visits Requested Visits Authorized [id number] Pending Review Specialty Services Required 06/22/2025 1 [...] Care Teams (unrecognized sec tion and content) Explosive Operator Relationship Specialty Start Date End Date Feng Greenberg MD PCP - General Family Medicine 04/12/24 Explosive Operator Relationship Specialty Start Date End Date Feng Greenberg MD PCP - General Family Medicine 04/12/24 Explosive Operator Relationship Specialty Start Date End Date Feng [...] BE BASED ON THE PRIMARY CLINICAL RECORDS. [employer] [facility] provides no warranty or guarantee of the accuracy or completeness of information in this document.
--- NOTE | 2024-09-09 10:28 | XR_ITS ---
The [address] [address] Patient Name: JARRELL WHITING MRN: [id number] date: 1990 Sex: F Assigned Patient Location: ER Current Patient Location: ER Accession/Order Number: [id number] Exam Date: 09/09/2024 11:37 Report Date: 09/09/2024 11:43 At the request of: NOLBERTO DOWNS MD Procedure: XR shoulder RT min 2V CLINICAL DATA: Patient fell 2 days ago and has continued neck, right shoulder and right hip pain. .Recent low back surgery. CERVICAL SPINE - 3 views: COMPARISON: None AP, lateral and odontoid views were obtained. There is no evidence of compression fracture or displacement. There is no significant degenerative change. The atlantoaxial relationship is maintained. There is no prevertebral soft tissue swelling. XR/XR shoulder RT min 2V IMPRESSION: NO ACUTE BONY INJURY. RIGHT SHOULDER - 3 views COMPARISON: None AP, Y and Grashey views were obtained. There is no evidence of fracture or dislocation. There are no significant soft tissue abnormalities. IMPRESSION: NO ACUTE BONY INJURY. LUMBAR SPINE - 2 views COMPARISON: 08/19/2024 and 07/01/2019 AP and lateral views were obtained. There is redemonstration of laminectomy and fusion at the lumbosacral junction with posterior rods and pedicle screws. The hardware appears intact and similar to the comparison. No developing fractures or displacement are seen. The disc spaces are maintained. There is minimal endplate spurring. The SI joints are intact. No paraspinal soft tissue abnormalities are identified. IMPRESSION: STABLE LUMBOSACRAL FUSION. NO ACUTE FINDINGS. Impression dictated by: Michaela Correia M.D.09/09/2024 11:43 AM Dictation Location: [place] [address] Electronically authenticated by: [id number] Y Date: 09/09/2024 11:43
--- NOTE | 2024-09-09 10:54 | XR_ITS ---
The [address] [address] Patient Name: JARRELL WHITING MRN: [id number] date: 1990 Sex: F Assigned Patient Location: ER Current Patient Location: ER Accession/Order Number: [id number] Exam Date: 09/09/2024 11:37 Report Date: 09/09/2024 11:43 At the request of: NOLBERTO DOWNS MD Procedure: XR shoulder RT min 2V CLINICAL DATA: Patient fell 2 days ago and has continued neck, right shoulder and right hip pain. .Recent low back surgery. CERVICAL SPINE - 3 views: COMPARISON: None AP, lateral and odontoid views were obtained. There is no evidence of compression fracture or displacement. There is no significant degenerative change. The atlantoaxial relationship is maintained. There is no prevertebral soft tissue swelling. XR/XR lumbar spine 2-3V IMPRESSION: NO ACUTE BONY INJURY. RIGHT SHOULDER - 3 views COMPARISON: None AP, Y and Grashey views were obtained. There is no evidence of fracture or dislocation. There are no significant soft tissue abnormalities. IMPRESSION: NO ACUTE BONY INJURY. LUMBAR SPINE - 2 views COMPARISON: 08/19/2024 and 07/01/2019 AP and lateral views were obtained. There is redemonstration of laminectomy and fusion at the lumbosacral junction with posterior rods and pedicle screws. The hardware appears intact and similar to the comparison. No developing fractures or displacement are seen. The disc spaces are maintained. There is minimal endplate spurring. The SI joints are intact. No paraspinal soft tissue abnormalities are identified. IMPRESSION: STABLE LUMBOSACRAL FUSION. NO ACUTE FINDINGS. Impression dictated by: Michaela Correia M.D.09/09/2024 11:43 AM Dictation Location: [place] [address] Electronically authenticated by: [id number] Y Date: 09/09/2024 11:43
--- NOTE | 2024-09-09 10:54 | XR_ITS ---
The [address] [address] Patient Name: JARRELL WHITING MRN: [id number] date: 1990 Sex: F Assigned Patient Location: ER Current Patient Location: ER Accession/Order Number: [id number] Exam Date: 09/09/2024 11:37 Report Date: 09/09/2024 11:43 At the request of: NOLBERTO DOWNS MD Procedure: XR shoulder RT min 2V CLINICAL DATA: Patient fell 2 days ago and has continued neck, right shoulder and right hip pain. .Recent low back surgery. CERVICAL SPINE - 3 views: COMPARISON: None AP, lateral and odontoid views were obtained. There is no evidence of compression fracture or displacement. There is no significant degenerative change. The atlantoaxial relationship is maintained. There is no prevertebral soft tissue swelling. XR/XR cervical spine 2-3V IMPRESSION: NO ACUTE BONY INJURY. RIGHT SHOULDER - 3 views COMPARISON: None AP, Y and Grashey views were obtained. There is no evidence of fracture or dislocation. There are no significant soft tissue abnormalities. IMPRESSION: NO ACUTE BONY INJURY. LUMBAR SPINE - 2 views COMPARISON: 08/19/2024 and 07/01/2019 AP and lateral views were obtained. There is redemonstration of laminectomy and fusion at the lumbosacral junction with posterior rods and pedicle screws. The hardware appears intact and similar to the comparison. No developing fractures or displacement are seen. The disc spaces are maintained. There is minimal endplate spurring. The SI joints are intact. No paraspinal soft tissue abnormalities are identified. IMPRESSION: STABLE LUMBOSACRAL FUSION. NO ACUTE FINDINGS. Impression dictated by: Michaela Correia M.D.09/09/2024 11:43 AM Dictation Location: [place] [address] Electronically authenticated by: [id number] Y Date: 09/09/2024 11:43
[2024-09-09] MEDS: HYDROCODONE/ACET 5-325 MG TABLET 1 TAB PO (11:05)
[2024-09-09] MEDS: KETOROLAC TROMETHAMINE 30 MG/ML VIAL IM (11:05)
--- NOTE | 2024-09-09 11:06 | ED.GENADUL1 ---
HPI HPI - General Adult General Chief complaint: Extremity Injury, Upper Stated complaint: FALL Time Seen by Provider: 09/09/24 10:21 Source: patient Mode of arrival: walk-in Limitations: no limitations History of Present Illness HPI narrative: Patient is a 34-year-old female who presents to the ER with multiple complaints of right-sided neck pain, right shoulder pain, right upper back pain, lower back pain. Patient says that she fell 2 days ago. Patient states that sometimes she loses her balance and just falls. [id number] is at bedside. Patient had surgery several weeks ago by Dr. Polk to her lower back where she had rods and other hardware placed. Patient states that she has had no significant accident or trauma, no scoliosis, patient has multiple areas of pathology to her lumbar sacral spine secondary to history of just falling down for unknown clear reason. Patient has had significant medical workup for her frequent falls. Patient said that she fell down on the right side of her body 2 days ago on Thursday. Patient is having right shoulder pain, right-sided neck pain, right upper thoracic pain, right lower back pain. Patient took a Robaxin Thursday night and yesterday with no relief. Patient came into the ER this morning without taking any medication this morning for pain. Patient has not been using ice or heat. Patient very histrionic, very dramatic with her symptoms of pain with any movement to her upper extremity or light palpation to most areas of her body. All systems are negative except as noted/marked. All systems reviewed and otherwise negative. Nurses note and vital signs reviewed and patient is not hypoxic. General: The patient appears mild distress secondary to areas of tenderness to extreme light palpation, patient will grimace in pain, moaning, and very histrionic/traumatic with her pain secondary to minimal movements made to right shoulder, or palpating thoracic or lumbar spine.. Patient is resting uncomfortably on cart. Patient is not toxic, lethargic, or listless Skin: Warm, dry, no pallor noted. There is no rash noted. No petechiae, purpura. To any areas where she is having pain, she is having no rash ecchymosis or abrasions or any signs of trauma. Head: Normocephalic, atraumatic, mild mid cervical tenderness to palpation from approximately C3-C6. Moderate to severe right parathoracic soft tissue tenderness to palpation along with severe pain to palpation of the right upper trapezius muscle as well. Eye: Normal conjunctiva, no drainage, EOMI. PERRL Ears, Nose, Mouth, and Throat: oral mucosa is moist. Nares patent. Mouth without vesicles. Cardiovascular: Regular Rate and Rhythm, no murmur, gallop, rub Respiratory: Patient is in no distress, no accessory muscle use, lungs are clear to auscultation, no wheezing, rales or rhonchi Back: non-tender, no CVA tenderness bilaterally to percussion. No CT LS midline pain GI: no tenderness to palpation, no masses appreciated. No rebound, guarding, or rigidity noted. No distention Musculoskeletal: Patient has full range of motion of all of the extremities with no difficulty except to the right shoulder. Patient has mild tenderness to palpation to the right AC joint. Patient has moderate to severe pain to the right upper trapezius muscle with flexion extension sidebending. Mild tenderness to palpation to the right upper thoracic posterior soft tissue. Patient has moderate tenderness to palpation paralumbar area, lateral to the surgical incision. Tissue incision is clean, dry, intact. Patient has no new step-offs to thoracic or lumbar area. Patient has mild pain over right ASIS with flexion extension internal and external rotation of right hip as well. No pelvic bone tenderness. Patient has no bruising, ecchymosis rash or any signs of trauma to right sided neck, shoulder, thoracic or lumbar spine. Patient has no rash, no motor, sensory, or focal neurological deficits. Neurological: A&O x4, normal speech Psychiatric: Cooperative Related Data Home Medications ?Medication ?Instructions ?Recorded ?Confirmed albuterol sulfate 90 mcg/actuation 2 puff inhalation Q4H PRN 04/22/23 08/19/24 aerosol inhaler shortness of breath or wheezing budesonide-formoterol HFA 160 1 puff inhalation Q12H 04/22/23 08/19/24 mcg-4.5 mcg/actuation aerosol inhaler (Symbicort) Previous Rx's ?Medication ?Instructions ?Recorded methocarbamol 750 mg tablet 750 mg PO Q6H PRN back pain #20 04/22/23 tabs ondansetron 4 mg disintegrating 4 mg PO Q6H PRN nausea and 07/06/23 tablet vomiting #12 tabs Allergies Allergy/AdvReac Type Severity Reaction Status Date / Time tomato Allergy Severe Rash Verified 04/22/23 10:37 oxycodone (From Percocet) AdvReac Severe Nausea Verified 04/22/23 10:37 hydrocodone (From Vicodin) AdvReac Nausea Verified 04/22/23 10:37 Opioid HPI Opioid Management Most Recent Opioid Data: Last Pain Scale 7 09/09/24 11:05 09/09/24 Last Pain Intensity 5 08/21/24 07:54 08/21/24 Last MAR Pain Assessment 09/09/24 11:05 Last ORT Total Score 3 08/19/24 10:51 08/19/24 Last ORT Risk Category Low Risk 08/19/24 10:51 08/19/24 PFSH PFSH Medical History (Updated 09/09/24 @ 11:56 by Aditya Palm MD) Liver mass ?R16.0 - Hepatomegaly, not elsewhere classified (ICD-10) Leg fracture ?S82.90XA - Unspecified fracture of unspecified lower leg, initial encounter for closed fracture (ICD-10) H/O reduction of closed fracture ?Z87.81 - Personal history of (healed) traumatic fracture (ICD-10) Anemia ?D64.9 - Anemia, unspecified (ICD-10) PTSD (post-traumatic stress disorder) ?F43.10 - Post-traumatic stress disorder, unspecified (ICD-10) Panic attacks ?F41.0 - Panic disorder [episodic paroxysmal anxiety] (ICD-10) Electronic cigarette use ?Z78.9 - Other specified health status (ICD-10) Dizziness ?R42 - Dizziness and giddiness (ICD-10) Migraine ?G43.909 - Migraine, unspecified, not intractable, without status migrainosus (ICD-10) Kidney stones ?N20.0 - Calculus of kidney (ICD-10) Colitis ?K52.9 - Noninfective gastroenteritis and colitis, unspecified (ICD-10) Anxiety ?F41.9 - Anxiety disorder, unspecified (ICD-10) Bronchitis ?J40 - Bronchitis, not specified as acute or chronic (ICD-10) Asthma ?J45.909 - Unspecified asthma, uncomplicated (ICD-10) Lumbar stenosis ?M48.061 - Spinal stenosis, lumbar region without neurogenic claudication (ICD-10) Low back pain ?M54.50 - Low back pain, unspecified (ICD-10) Surgical History (Updated 08/20/24 @ 09:42 by DEX Lawrence) Hx of tubal ligation ?Z98.51 - Tubal ligation status (ICD-10) History of liver biopsy ?Z98.890 - Other specified postprocedural states (ICD-10) History of tonsillectomy and adenoidectomy ?Z90.89 - Acquired absence of other organs (ICD-10) History of section ?Z98.891 - History of uterine scar from previous surgery (ICD-10) History of section ?Z98.891 - History of uterine scar from previous surgery (ICD-10) Family History Other Family history not known due to adoption Social History Within the past year, how often did you have a drink containing alcohol: never Score interpretation: A score less than 3 is consistent with normal alcohol consumption. Smoking status: Heavy tobacco smoker Do you use any of these nicotine containing products: vaping products Non-prescribed substance use: cannabis (any form) Highest level of school completed/degree received: some college, no degree Little interest or pleasure in doing things: not at all Feeling down, depressed, or hopeless: not at all Exam Constitutional Vital Signs, click to edit/add: Last Vital Signs Temp 98.4 F 09/09/24 10:03 Pulse 85 09/09/24 10:03 Resp 18 09/09/24 10:03 BP 135/92 H 09/09/24 10:03 Pulse Ox 98 09/09/24 10:03 Course Vital Signs Vital signs: Vital Signs Temperature 98.4 F 09/09/24 10:03 Pulse Rate 85 09/09/24 10:03 Respiratory Rate 18 09/09/24 10:03 Blood Pressure 135/92 H 09/09/24 10:03 Pulse Oximetry 98 09/09/24 10:03 Temperature 98.4 F 09/09/24 10:03 Pulse Rate 85 09/09/24 10:03 Respiratory Rate 18 09/09/24 10:03 Blood Pressure 135/92 H 09/09/24 10:03 Pulse Oximetry 98 09/09/24 10:03 Medical Decision Making [facility] Narrative Medical decision making narrative: Patient's right shoulder x-ray, cervical x-ray, lumbar x-ray showed no acute findings. Copies of the reports were given to patient. Patient was relieved no acute bony findings. Education on using ice was discussed at bedside. Patient has been using heat the last 2 days. Patient is to alternate Tylenol and anti-inflammatories. Patient does have pain medication muscle laxer to use at home if needed. Education on ice and stretching and following up with PCP was discussed. Discharge Plan Discharge Chief Complaint: Extremity Injury, Upper Clinical Impression: Pain of right scapula, Strain of cervical portion of right trapezius muscle, Lumbar back pain, Fall Patient Disposition: Home, Self-Care Time of Disposition Decision: 11:55 Condition: Fair Prescriptions / Home Meds: No Action ondansetron 4 mg tablet,disintegrating 4 mg PO Q6H PRN (Reason: nausea and vomiting) Qty: 12 0RF albuterol sulfate 90 mcg/actuation HFA aerosol inhaler 2 puff INHALATION Q4H PRN (Reason: shortness of breath or wheezing) budesonide-formoterol [Symbicort] 160-4.5 mcg/actuation HFA aerosol inhaler 1 puff INHALATION Q12H methocarbamol 750 mg tablet 750 mg PO Q6H PRN (Reason: back pain) Qty: 20 0RF Print Language: Kazakh Instructions: Cervical Strain (ED), Muscle Strain (ED), Acute Low Back Pain (ED), Fall Prevention (ED) Additional Instructions: Use ice 20 minutes on, 20 minutes off, do not use heat. Follow-up with Dr. Manrique for further evaluation and treatment. A copy of x-rays were given to you. Referrals: Stiven Greenberg MD [Primary Care Provider] - 1 week Discharge Date/Time: 09/09/24 12:05
--- NOTE | 2024-09-09 11:54 | PC.NURSE ---
new ice pack given to pt
== END 2024-09-09 12:05 | disposition home or self-care (01) ==
PROVIDERS: Emergency Provider Emergency Medicine; PCP Family Medicine
DX: S16.1XXA Strain of muscle, fascia and tendon at neck level, initial encounter (principal); M54.50 Low back pain, unspecified; M25.511 Pain in right shoulder; Z91.81 History of falling; Z98.51 Tubal ligation status; F17.290 Nicotine dependence, other tobacco product, uncomplicated; W19.XXXA Unspecified fall, initial encounter
CPT/HCPCS: 72040; 72100; 73030; 96372; 99285; J1885

== ENCOUNTER 2024-09-30 09:55 | Outpatient (OUT) | payer MEDICAID, SELFPAY ==
--- NOTE | 2024-09-30 | XR_ITS ---
The [address] [address] Patient Name: JARRELL WHITING MRN: [id number] date: 1990 Sex: F Assigned Patient Location: Current Patient Location: Accession/Order Number: [id number] Exam Date: 09/30/2024 10:44 Report Date: 09/30/2024 10:46 At the request of: ZACHERY CLAIRE MD Procedure: XR lumbar spine 2-3V LUMBAR SPINE - 2 views COMPARISON: 09/09/2024 CLINICAL DATA: Low back pain radiating to the hips over the past week with numbness and tingling at the legs. Recent back surgery. AP and lateral weightbearing views were obtained. There is redemonstration of laminectomy and fusion at the lumbosacral junction with posterior rods and pedicle screws. The hardware appears intact and unchanged from the prior. The disc spaces are maintained. No prominent hypertrophy is seen. The SI joints are intact. There are no paraspinal soft tissue abnormalities. XR/XR lumbar spine 2-3V IMPRESSION: STABLE LUMBOSACRAL FUSION. NO ACUTE BONY FINDINGS. Impression dictated by: Michaela Correia M.D.09/30/2024 10:46 AM Dictation Location: [place] [address] Electronically authenticated by: [id number] Y Date: 09/30/2024 10:46
== END 2024-09-30 09:56 | disposition home or self-care (01) ==
LOC: EC 09:55
PROVIDERS: PCP Family Medicine; Visit Provider Orthopaedic Surgery Orthopaedic Surgery of the Spine
DX: M54.50 Low back pain, unspecified (principal); M43.27 Fusion of spine, lumbosacral region
CPT/HCPCS: 72100

== ENCOUNTER 2024-10-10 14:22 | Emergency (ER) | payer MEDICAID, SELFPAY ==
[2024-10-10 14:45] VITALS: BP 144/107; PULSE 94; TEMP 37; O2SAT 96; BMI 22.8
--- NOTE | 2024-10-10 15:11 | ED.GENADUL1 ---
HPI HPI - General Adult General Chief complaint: Recheck/Abnormal Lab/Rx Stated complaint: HTN Time Seen by Provider: 10/10/24 14:28 Source: patient Mode of arrival: walk-in Limitations: no limitations History of Present Illness HPI narrative: Patient has been sent in from her physician's office for further evaluation of her headache. She has a history of migraine headaches but the one that she is currently experiencing which started 2 days ago is somewhat different and quality to her usual migraine headaches. Pain is worse when she changes position or bends forward and she has had nausea and vomiting with it as well as photophobia. She denies chills, fever or neck stiffness. Patient was seen in her physician's office earlier today and was treated with Toradol 60 mg Norflex 60 mg and promethazine 25 mg IM before being sent to the ED. 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 Patient underwent back surgery on 22 August secondary to injury from a fall. She states that there is concerned that she may have POTS syndrome because she frequently gets dizzy and falls. Related Data Home Medications ?Medication ?Instructions ?Recorded ?Confirmed albuterol sulfate 90 mcg/actuation 2 puff inhalation Q4H PRN 04/22/23 08/19/24 aerosol inhaler shortness of breath or wheezing budesonide-formoterol HFA 160 1 puff inhalation Q12H 04/22/23 08/19/24 mcg-4.5 mcg/actuation aerosol inhaler (Symbicort) Previous Rx's ?Medication ?Instructions ?Recorded methocarbamol 750 mg tablet 750 mg PO Q6H PRN back pain #20 04/22/23 tabs ondansetron 4 mg disintegrating 4 mg PO Q6H PRN nausea and 07/06/23 tablet vomiting #12 tabs Allergies Allergy/AdvReac Type Severity Reaction Status Date / Time tomato Allergy Severe Rash Verified 04/22/23 10:37 oxycodone (From Percocet) AdvReac Severe Nausea Verified 04/22/23 10:37 hydrocodone (From Vicodin) AdvReac Nausea Verified 04/22/23 10:37 Opioid HPI Opioid Management Most Recent Opioid Data: Last Pain Scale 7 09/09/24 11:05 09/09/24 Last Pain Intensity 5 08/21/24 07:54 08/21/24 Last ORT Total Score 3 08/19/24 10:51 08/19/24 Last ORT Risk Category Low Risk 08/19/24 10:51 08/19/24 Review of Systems ROS Status of ROS 10 or more systems reviewed and unremarkable except as noted in history and below [facility] Medical History Liver mass ?R16.0 - Hepatomegaly, not elsewhere classified (ICD-10) Leg fracture ?S82.90XA - Unspecified fracture of unspecified lower leg, initial encounter for closed fracture (ICD-10) H/O reduction of closed fracture ?Z87.81 - Personal history of (healed) traumatic fracture (ICD-10) Anemia ?D64.9 - Anemia, unspecified (ICD-10) PTSD (post-traumatic stress disorder) ?F43.10 - Post-traumatic stress disorder, unspecified (ICD-10) Panic attacks ?F41.0 - Panic disorder [episodic paroxysmal anxiety] (ICD-10) Electronic cigarette use ?Z78.9 - Other specified health status (ICD-10) Dizziness ?R42 - Dizziness and giddiness (ICD-10) Migraine ?G43.909 - Migraine, unspecified, not intractable, without status migrainosus (ICD-10) Kidney stones ?N20.0 - Calculus of kidney (ICD-10) Colitis ?K52.9 - Noninfective gastroenteritis and colitis, unspecified (ICD-10) Anxiety ?F41.9 - Anxiety disorder, unspecified (ICD-10) Bronchitis ?J40 - Bronchitis, not specified as acute or chronic (ICD-10) Asthma ?J45.909 - Unspecified asthma, uncomplicated (ICD-10) Lumbar stenosis ?M48.061 - Spinal stenosis, lumbar region without neurogenic claudication (ICD-10) Low back pain ?M54.50 - Low back pain, unspecified (ICD-10) Surgical History Hx of tubal ligation ?Z98.51 - Tubal ligation status (ICD-10) History of liver biopsy ?Z98.890 - Other specified postprocedural states (ICD-10) History of tonsillectomy and adenoidectomy ?Z90.89 - Acquired absence of other organs (ICD-10) History of section ?Z98.891 - History of uterine scar from previous surgery (ICD-10) History of section ?Z98.891 - History of uterine scar from previous surgery (ICD-10) Family History Other Family history not known due to adoption Social History Within the past year, how often did you have a drink containing alcohol: never Score interpretation: A score less than 3 is consistent with normal alcohol consumption. Smoking status: Heavy tobacco smoker Do you use any of these nicotine containing products: vaping products Non-prescribed substance use: cannabis (any form) Highest level of school completed/degree received: some college, no degree Little interest or pleasure in doing things: not at all Feeling down, depressed, or hopeless: not at all Exam Narrative Exam Narrative: Awake and alert on arrival. Vital signs are stable except for an initially slightly elevated blood pressure. Pupils are equal and reactive. There is no facial asymmetry. She moves all extremities actively. Neck is supple and is without meningeal signs. Lung sounds are clear to auscultation bilaterally with good air entry. Heart has regular rate and rhythm. Abdomen soft and benign. Patient is wearing a back brace. Constitutional Vital Signs, click to edit/add: Last Vital Signs Temp 98.6 F 10/10/24 14:45 Pulse 84 10/10/24 15:36 Resp 18 10/10/24 14:45 BP 129/99 H 10/10/24 15:36 Pulse Ox 96 10/10/24 14:45 O2 Del Method Room Air 10/10/24 14:45 Course Vital Signs Vital signs: Vital Signs Temperature 98.6 F 10/10/24 14:45 Pulse Rate 94 H 10/10/24 14:45 Respiratory Rate 18 10/10/24 14:45 Blood Pressure 144/107 H 10/10/24 14:45 Pulse Oximetry 96 10/10/24 14:45 Oxygen Delivery Method Room Air 10/10/24 14:45 Temperature 98.6 F 10/10/24 14:45 Pulse Rate 84 10/10/24 15:36 Respiratory Rate 18 10/10/24 14:45 Blood Pressure 129/99 H 10/10/24 15:36 Pulse Oximetry 96 10/10/24 14:45 Oxygen Delivery Method Room Air 10/10/24 14:45 Medical Decision Making MDM Narrative Medical decision making narrative: Baseline labs are obtained and are unremarkable except for a slight bump in the lipase at 100. She is not experiencing abdominal pain. She had already received IM meds in her physician's office and I am treating her with IV Compazine and IV Benadryl. She feels better. CT scan of the brain is negative and this was discussed with her PCP Dr. Greenberg. Patient is discharged and is advised outpatient follow-up with her PCP. She will return anytime for worsening symptoms. Lab Data Labs: Lab Results 10/10/24 10/10/24 Range/Units 15:25 16:10 WBC 8.1 (4.0-11.0) 10^3/uL RBC 4.34 (4.20-5.40) 10^6/uL Hgb 11.0 L (12.0-16.0) g/dL Hct 34.9 L (36.0-48.0) % MCV 80.4 L (81.0-99.0) fL MCH 25.3 L (26.7-34.0) pg MCHC 31.5 (29.9-35.2) g/dL RDW 14.5 (11.0-15.0) % Plt Count 264 (150-450) 10^3/uL MPV 11.0 (9.5-13.5) fL Neut % (Auto) 65.0 (43.0-75.0) % Lymph % (Auto) 23.9 (20.5-60.0) % Saline % (Auto) 9.2 (1.7-12.0) % Eos % (Auto) 1.2 (0.9-7.0) % Baso % (Auto) 0.5 (0.2-2.0) % Neut # (Auto) 5.3 (1.4-6.5) 10^3/uL Lymph # (Auto) 1.9 (1.2-3.8) 10^3/uL Saline # (Auto) 0.8 (0.3-0.8) 10^3/uL Eos # (Auto) 0.1 (0.0-0.7) 10^3/uL Baso # (Auto) 0.0 (0.0-0.1) 10^3/uL Abs Immat Gran (auto) 0.02 (0.00-0.03) 10^3/uL Imm/Tot Granulo (auto) 0.2 (0.0-0.5) % Sodium 140 (136-145) mmol/L Potassium 4.5 (3.5-5.1) mmol/L Chloride 103 (98-107) mmol/L Carbon Dioxide 27.4 (21.0-32.0) mmol/L Anion Gap 14.1 BUN 13.0 (7.0-18.0) mg/dL Creatinine 0.73 (0.55-1.02) mg/dL Est GFR ( Amer) >60 (>=60 mL/min/1.73m^2) Est GFR (Non-Af Amer) >60 (>=60 mL/min/1.73m^2) BUN/Creatinine Ratio 17.8 Glucose 97 (74-106) mg/dL Calcium 8.8 (8.5-10.1) mg/dL Total Bilirubin 0.2 (0.2-1.0) mg/dL Direct Bilirubin <0.1 (0.0-0.2) mg/dL AST 10 L (15-37) U/L ALT 22 (14-59) U/L Alkaline Phosphatase 79 (46-116) U/L Total Protein 7.2 (6.4-8.2) g/dL Albumin 3.6 (3.4-5.0) g/dL Globulin 3.6 g/dL Albumin/Globulin Ratio 1.0 Lipase 100.0 H (16.0-77.0) U/L Urine Color Lt. yellow (YELLOW) Urine Clarity Clear (CLEAR) Urine pH 6.0 (5.0-9.0) Ur Specific [place] <=1.005 A (1.005-1.025) Urine Protein Negative (NEG/TRACE) mg/dL Urine Glucose (UA) Negative (NEGATIVE) mg/dL Urine Ketones Negative (NEGATIVE) mg/dL Urine Occult Blood Negative (NEGATIVE) Urine Nitrite Negative (NEGATIVE) Urine Bilirubin Negative (NEGATIVE) Urine Urobilinogen 0.2 (0.2-1.0) EU/dL Ur Leukocyte Esterase Negative (NEGATIVE) Discharge Plan Discharge Chief Complaint: Recheck/Abnormal Lab/Rx Clinical Impression: Headache Qualifiers: Headache type: unspecified Headache chronicity pattern: acute headache Intractability: not intractable Qualified Code(s): R51.9 - Headache, unspecified Patient Disposition: Home, Self-Care Time of Disposition Decision: 16:57 Condition: Good Mode of Transportation: Private Vehicle Prescriptions / Home Meds: No Action ondansetron 4 mg tablet,disintegrating 4 mg PO Q6H PRN (Reason: nausea and vomiting) Qty: 12 0RF albuterol sulfate 90 mcg/actuation HFA aerosol inhaler 2 puff INHALATION Q4H PRN (Reason: shortness of breath or wheezing) budesonide-formoterol [Symbicort] 160-4.5 mcg/actuation HFA aerosol inhaler 1 puff INHALATION Q12H methocarbamol 750 mg tablet 750 mg PO Q6H PRN (Reason: back pain) Qty: 20 0RF Print Language: Maori Instructions: Acute Headache (ED) Additional Instructions: Follow-up with your physician in the next couple days. Return for worsening symptoms. Referrals: Stiven Greenberg MD [Primary Care Provider] - 1 week
[2024-10-10 15:36] VITALS: BP 129/99; BP 134/95; BP 135/98; PULSE 100; PULSE 84; PULSE 90
[2024-10-10 15:37] LABS: Basophils Percent Auto 0.5 % (0.2-2.0); Eosinophils Absolute Auto 0.1 10^3/uL (0.0-0.7); Eosinophils Percent Auto 1.2 % (0.9-7.0); Hematocrit 34.9 % (36.0-48.0); Immature Granulocytes Abs Auto 0.02 10^3/uL (0.00-0.03); Immature Granulocytes Pct Auto 0.2 % (0.0-0.5); Lymphocytes Absolute Auto 1.9 10^3/uL (1.2-3.8); Lymphocytes Percent Auto 23.9 % (20.5-60.0); Mean Corpuscular HGB Conc 31.5 g/dL (29.9-35.2); Mean Corpuscular Hemoglobin 25.3 pg (26.7-34.0); Mean Corpuscular Volume 80.4 fL (81.0-99.0); Monocytes Absolute Auto 0.8 10^3/uL (0.3-0.8); Monocytes Percent Auto 9.2 % (1.7-12.0); Neutrophils Absolute Auto 5.3 10^3/uL (1.4-6.5); Platelet Count 264 10^3/uL (150-450); Red Blood Count 4.34 10^6/uL (4.20-5.40); Red Cell Distribution Width 14.5 % (11.0-15.0); White Blood Count 8.1 10^3/uL (4.0-11.0)
[2024-10-10] MEDS: 0.9 % SODIUM CHLORIDE 1,000 ML 250 ML IV (15:41)
[2024-10-10] MEDS: PROCHLORPERAZINE 10 MG/2 ML VIAL 5 MG IV (15:43)
[2024-10-10] MEDS: DIPHENHYDRAMINE HCL 50 MG/ML VIAL 25 MG IVP (15:43)
[2024-10-10 15:53] LABS: Alanine Aminotransferase 22 U/L (14-59); Albumin Level 3.6 g/dL (3.4-5.0); Alkaline Phosphatase 79 U/L (46-116); Anion Gap 14.1; Aspartate Amino Transferase 10 U/L (15-37); BUN Creatinine Ratio 17.8; Bilirubin Direct <0.1 mg/dL (0.0-0.2); Bilirubin Total 0.2 mg/dL (0.2-1.0); Calcium 8.8 mg/dL (8.5-10.1); Carbon Dioxide 27.4 mmol/L (21.0-32.0); Chloride 103 mmol/L (98-107); Estimated GFR (African America >60 (>=60 mL/min/1.73m^2); Estimated GFR (Non-African Ame >60 (>=60 mL/min/1.73m^2); Globulin 3.6 g/dL; Glucose 97 mg/dL (74-106); Potassium 4.5 mmol/L (3.5-5.1); Sodium 140 mmol/L (136-145); Total Protein 7.2 g/dL (6.4-8.2)
[2024-10-10 16:38] LABS: Bilirubin Urine NEGATIVE (NEGATIVE); Blood Urine NEGATIVE (NEGATIVE); Clarity Urine CLEAR (CLEAR); Color Urine LT. YELLOW (YELLOW); Glucose Urine UA NEGATIVE (NEGATIVE); Ketones Urine NEGATIVE (NEGATIVE); Leukocyte Esterase Urine NEGATIVE (NEGATIVE); Nitrite Urine NEGATIVE (NEGATIVE); Protein Urine NEGATIVE (NEG/TRACE); Specific Gravity Urine <=1.005 (1.005-1.025); Urobilinogen Urine 0.2 EU/dL (0.2-1.0)
[2024-10-10 16:39] LABS: Urine Microscopic Indicated NO
[2024-10-10 17:09] VITALS: BP 140/88; PULSE 98; O2SAT 97
== END 2024-10-10 17:12 | disposition home or self-care (01) ==
PROVIDERS: Emergency Provider Emergency Medicine; PCP Family Medicine
DX: R51.9 Headache, unspecified (principal); I10 Essential (primary) hypertension; Z91.81 History of falling; Z98.51 Tubal ligation status; F17.290 Nicotine dependence, other tobacco product, uncomplicated
CPT/HCPCS: 36415; 70450; 80048; 80076; 81003; 83690; 85025; 96361; 96374; 96375; 99285; J0780; J1200

== ENCOUNTER 2024-10-12 10:00 | Outpatient (OUT) | payer MEDICAID, SELFPAY ==
--- NOTE | 2024-10-12 10:04 | US_ITS ---
The [address] [address] Patient Name: JARRELL WHITING MRN: [id number] date: 1990 Sex: F Assigned Patient Location: [place] Current Patient Location: [place] Accession/Order Number: [id number] Exam Date: 10/12/2024 10:52 Report Date: 10/12/2024 10:58 At the request of: FENG DURAN MD Procedure: US right upper quadrant LIMITED RIGHT UPPER QUADRANT ABDOMINAL ULTRASOUND CLINICAL HISTORY: Elevated Lipase R74.8 COMPARISON: 07/06/[address] 06/06/2021 The gallbladder is partially contracted and the wall appears slightly thickened. There are no echogenic shadowing gallstones or pericholecystic fluid. No intra- or extrahepatic biliary dilatation is evident. The common duct measures 3-4 mm. The liver is normal in echogenicity. No intrahepatic masses are seen. There is appropriate hepatopetal flow within the main portal vein. The pancreas shows no significant sonographic abnormality. Cursory evaluation of the right kidney reveals no hydronephrosis or fluid within Ryan's pouch. A similar cystic structure is visualized between the stomach and left hepatic lobe measuring 2.3 x 1.8 x 2.7 cm. Etiology and significance is uncertain. It was not identified on the comparison CT study. US/US right upper quadrant IMPRESSION: PARTIALLY CONTRACTED GALLBLADDER, WITHOUT STONES. NO OTHER ACUTE FINDINGS. . Impression dictated by: Michaela Correia M.D.10/12/2024 10:58 AM Dictation Location: [place] [address] Electronically authenticated by: [id number] Y Date: 10/12/2024 10:58
--- OUTSIDE RECORDS SUMMARY | 2024-10-12 10:05 | XMS_ITS | CCD ---
Author Organization [facility] Care Team Providers Care Fire Claims Adjuster Name Role Phone RENEE ., DR TONEY Attending Unavailable HOY ., DR TONEY Admitting Unavailable HOY ., DR TONEY Primary Care Unavailable HOY ., DR TONEY Consulting Unavailable HOY ., DR TONEY Admitting Unavailable HOY ., DR TONEY Primary Care Unavailable HOY ., DR TONEY Consulting Unavailable HOY ., DR TONEY Attending Unavailable Terencey Feng VALDEZ Primary Care Provider [phone] HOY, FENG M Primary Care Unavailable YUNIOR [...] Acetaminophen / HYDROcodone Drug Allergy 11-28-2014 [facility] Repository (6 sources) Acetaminophen / HYDROcodone; Translations: [HYDROCODONE-ACETA MINOPHEN] Drug Allergy 05-10-2021 [facility] Medications Current Medications Medication Drug Class(es) Dates Sig (Normalized) Sig (Original) acetaminophen 325 mg oral tablet (1 source) Start: 06-22-2024 take 1 tablet by mouth every six hours as needed for headache 650 mg, oral, Every 6 hours PRN, headaches, temperature greater than 38.3 C, Starting on Thu06/22/24 at 0301 [id number] 200 actuat albuterol 0.09 mg/actuat metered dose [...] Johnson MD on 07/05/2024 11:07 AM Normal [facility] CREATININEon 06-22-2024 Creatinine [Mass/Vol] 0.72 mg/dL Normal 0.40-1.00 [facility] Comment on above: Result Comment: METH OD TRACEABLE TO IDAR STANDARD Performed By: #### H H, PLTCT, FINISHER CARD TENDER #### [facility] ([id number]) [address], [address] [place] [address] eGFR (CKD-EPI) NON-RACE DEPENDENT >90 Normal >59 [facility] Comment on above: Result Comment: Reported eGFR is based on the CKD-EPI 2020 equation that does not use a race coefficient. Performed By: #### H H, PLTCT, FINISHER CARD TENDER #### [facility] ([id number]) [address], [address] [place] [address] Creatinine includes GFR, ser umon 06-22-2024 Creatinine [Mass/Vol] 0.72 mg/dL 0.40 - 1.00 mg/dL [facility] Comment on above: METHOD TRACEABLE TO IDMS STANDARD eGFR (CKD-EPI)non-race dependent - PINF [facility] Comment on above: Reported eGFR is based on the CKD-EPI 2020 equation that does not use a race coefficient. [facility] HGB AND HCTon 06-22-2024 Hematocrit (Bld) [Volume fraction] 33.3 % Low 35-47 [facility] Comment on above: Performed By: #### H H, PLTCT, FINISHER CARD TENDER #### [facility] ([id number]) [address], [address] [place] [address] Hemoglobin (Bld) [Mass/Vol] 11.3 g/dL Low 11.7-15.5 [facility] Comment on above: Performed By: #### H H, PLTCT, FINISHER CARD TENDER #### [facility] ([id number]) [address], [address] [place] [address] Hemoglobin and hematocrit, b loodon 06-22-2024 Hematocrit (Bld) [Volume fraction] 33.3 % Low 35 - 47 % [facility] Hemoglobin (Bld) [Mass/Vol] 11.3 g/dL Low 11.7 - 15.5 g/dL [facility] Interpretation and review of laboratory results Abnormal [facility] MR LUMBAR SPINE WO CONTon MR LUMBAR [...] Suhas Kelly MD on 06/22/2024 7:18 AM [facility] MR Lumbar spine WO contrasto n 06-22-2024 [...] Suhas Kelly MD on 06/22/2024 7:18 AM [facility] Suhas Kelly MD - 06/22/2024 LUMBAR SPINE [...] Suhas Kelly MD on 06/22/2024 7:18 AM [facility] Radiology Study observation (narrative) [facility] MR Lumbar spine WO contrastO rdered By: Suhas Kelly on 06-22-2024 [facility] Work Phone: No Panel Informationon 06-22 [facility] PLATELET COUNT AND MPVon Platelet mean volume (Bld) [Entitic vol] 11.3 fL Normal 7-12 [facility] Comment on above: Performed By: #### H H, PLTCT, FINISHER CARD TENDER #### [facility] ([id number]) [address], [address] [place] [address] Platelets (Bld) [#/Vol] 180 10*3/uL Normal 150-450 [facility] Comment on above: Performed By: #### H H, PLTCT, FINISHER CARD TENDER #### [facility] ([id number]) [address], [address] [place] [address] Platelet counton 06-22-2024 Platelet mean volume (Bld) [Entitic vol] 11.3 fL 7 - 12 fL [facility] Platelets (Bld) [#/Vol] 180 10*3/uL [facility] CT HIP RT WO CONTon 06-21-20 CT [...] Ralph MD on 06/21/2024 9:59 PM Normal [facility] CT LUMBAR SPINE WO CONTon CT [...] Burleson MD on 06/21/2024 10:04 PM Normal [facility] XR HIP RT 2-3 VIEWS W [...] Solorzano MD on 06/18/2024 4:37 AM Normal [facility] XR SPINE LUMBAR 2 OR 3 [...] Solorzano MD on 06/18/2024 4:37 AM Normal [facility] GI PANELon 04-14-2024 Gastrointestinal pathogens DNA [...] SAPOVIRUS Not detected (qualifier value) Normal NDET [facility] Comment on above: Performed By: #### C KIMANI CMP, 3039-3 #### [facility] ([id number]) [address] [place] [address] 58068 CBC AND AUTO DIFFon 10-15-20 24 ABSOLUTE BASOPHIL 0.0 X10E9/L Normal 0.0-0.2 [facility] Comment on above: Performed By: #### Jairon HARMAN CMP, 3039-3 #### [facility] ([id number]) [address] [place] [address] 93769 ABSOLUTE NEUTROPHIL 9.5 X10E9/L High 1.5-6.6 [facility] Comment on above: Performed By: #### Jairon HARMAN CMP, 3 #### [facility] ([id number]) [address] [place] [address] 09362 Basophils/100 WBC (Bld) 0.2 % Normal [facility] Comment on above: Performed By: #### Jairon HARMAN CMP, 3039-3 #### [facility] ([id number]) [address] [place] [address] 23630 Eosinophils (Bld) [#/Vol] 0.0 10*3/uL Normal 0.0-0.4 [facility] Comment on above: Performed By: #### Jairon HARMAN CMP, 3039-3 #### [facility] ([id number]) [address] [place] [address] 55938 Eosinophils/100 WBC (Bld) 0.3 % Normal [facility] Comment on above: Performed By: #### Jairon HARMAN CMP, 3039-3 #### [facility] ([id number]) [address] [place] [address] [place] [address] Erythrocyte distribution width (RBC) [Ratio] 15.3 % High 11.5-15.0 [facility] Comment on above: Performed By: #### Jairon HARMAN CMP, 3039-3 #### [facility] ([id number]) [address] [place] [address] 23307 Hematocrit (Bld) [Volume fraction] 38.5 % Normal 35-47 [facility] Comment on above: Performed By: #### Jairon HARMAN, CMP, 3039-3 #### [facility] ([id number]) [address] [place] [address] 97467 Hemoglobin (Bld) [Mass/Vol] 12.8 g/dL Normal 11.7-15.5 [facility] Comment on above: Performed By: #### Jairon HARMAN CMP, 3039-08 #### [facility] ([id number]) [address] [place] [address] 09989 Lymphocytes (Bld) [#/Vol] 1.1 10*3/uL Normal 1.0-3.5 [facility] Comment on above: Performed By: #### Jairon HARMAN, CMP, 3039-08 #### [facility] ([id number]) [address] [place] [address] 13099 Lymphocytes/100 WBC (Bld) 9.9 % Normal [facility] Comment on above: Performed By: #### Jairon HARMAN CMP, 3039-08 #### [facility] ([id number]) [address] [place] [address] 07300 MCH (RBC) [Entitic mass] 27.7 pg Normal 27-34 [facility] Comment on above: Performed By: #### Jairon HARMAN, CMP, 3 #### [facility] ([id number]) [address] [place] [address] 08510 MCHC (RBC) [Mass/Vol] 33.2 g/dL Normal 32-36 [facility] Comment on above: Performed By: #### Jairon HARMAN, CMP, 3039-3 #### [facility] ([id number]) [address] [place] [address] 08782 MCV (RBC) [Entitic vol] 84 fL Normal 80-100 [facility] Comment on above: Performed By: #### Jairon HARMAN CMP, 3039-08 #### [facility] ([id number]) [address] [place] [address] 30433 Monocytes (Bld) [#/Vol] 0.7 10*3/uL Normal 0-0.9 [facility] Comment on above: Performed By: #### Jarion HARMAN CMP, 3039-08 #### [facility] ([id number]) [address] [place] [address] 14808 Monocytes/100 WBC (Bld) 6.2 % Normal [facility] Comment on above: Performed By: #### Jairon HARMAN CMP, 3039-08 #### [facility] ([id number]) [address] [place] [address] 84605 Neutrophils/100 WBC (Bld) 83.4 % Normal [facility] Comment on above: Performed By: #### Jairon HARMAN [facility], 3039-08 #### [facility] ([id number]) [address] [place] [address] 25456 Platelet mean volume (Bld) [Entitic vol] 9.7 fL Normal 7-12 [facility] Comment on above: Performed By: #### Jaiorn HARMAN CMP, 3039-08 #### [facility] ([id number]) [address] [place] [address] 07147 Platelets (Bld) [#/Vol] 177 10*3/uL Normal 150-450 [facility] Comment on above: Performed By: #### Jairon HARMAN CMP, 3039-08 #### [facility] ([id number]) [address] [place] [address] 69141 RBC COUNT 4.62 X10E12/L Normal 3.80-5.20 [facility] Comment on above: Performed By: #### C BCA, CMP, 0-3 #### [facility] ([id number]) [address] [place] [address] 66293 WBC (Bld) [#/Vol] 11.3 10*3/uL High 4.0-11.0 [facility] Comment on above: Performed By: #### C BCA, CMP, 3039-3 #### [facility] ([id number]) [address] [place] [address] 54821 COMPREHENSIVE METABOLIC PANE Bill 04-12-2024 Albumin [Mass/Vol] 4.8 g/dL Normal 3.2-5.3 [facility] Comment on above: Performed By: #### C BCA, CMP, 3039-3 #### [facility] ([id number]) [address] [place] [address] 15219 ALP [Catalytic activity/Vol] 51 U/L Normal 39-130 [facility] Comment on above: Performed By: #### C BCA, CMP, 3039-3 #### [facility] ([id number]) [address] [place] [address] 56757 ALT [Catalytic activity/Vol] 14 U/L Normal 0-31 [facility] Comment on above: Performed By: #### C BCA, CMP, 3039-3 #### [facility] ([id number]) [address] [place] [address] 50940 Anion gap [Moles/Vol] 7 mmol/L Normal 5-15 [facility] Comment on above: Performed By: #### C BCA, CMP, 3039-3 #### [facility] ([id number]) [address] [place] [address] 38078 AST [Catalytic activity/Vol] 21 U/L Normal 0-41 [facility] Comment on above: Performed By: #### C BCA, CMP, 3039-3 #### [facility] ([id number]) [address] [place] [address] 86298 Bilirubin [Mass/Vol] 0.4 mg/dL Normal 0.3-1.2 [facility] Comment on above: Performed By: #### C CANDACE HARMAN, 3039-3 #### [facility] ([id number]) [address] [place] [address] 04728 Calcium [Mass/Vol] 9.0 mg/dL Normal 8.5-10.5 [facility] Comment on above: Performed By: #### C CANDACE HARMAN, 3 #### [facility] ([id number]) [address] [place] [address] 56056 Chloride [Moles/Vol] 103 mmol/L Normal 98-109 [facility] Comment on above: Performed By: #### Jairon HARMAN CMP, 3 #### [facility] ([id number]) [address] [place] [address] 66049 CO2 [Moles/Vol] 24 mmol/L Normal 22-32 [facility] Comment on above: Performed By: #### C CANDACE HARMAN, 3 #### [facility] ([id number]) [address] [place] [address] 82365 Creatinine [Mass/Vol] 0.79 mg/dL Normal 0.40-1.00 [facility] Comment on above: Result Comment: METH OD TRACEABLE TO IDMS STANDARD Performed By: #### C CANDACE HARMAN, 3039-3 #### [facility] ([id number]) [address] [place] [address] 36360 eGFR (CKD-EPI) NON-RACE DEPENDENT >90 Normal >59 [facility] Comment on above: Result Comment: Reported eGFR is based on the CKD-EPI 2020 equation that does not use a race coefficient. Performed By: #### C CANDACE HARMAN, 3039-3 #### [facility] ([id number]) [address] [place] [address] 68377 Glucose [Mass/Vol] 108 mg/dL High 65-99 [facility] Comment on above: Performed By: #### C KIMANI CMP, 0-3 #### [facility] ([id number]) [address] [place] [address] 78286 Potassium [Moles/Vol] 4.0 mmol/L Normal 3.5-5.0 [facility] Comment on above: Performed By: #### C KIMANI [facility], 0-3 #### [facility] ([id number]) [address] [place] [address] 12218 Protein [Mass/Vol] 7.4 g/dL Normal 6.0-8.0 [facility] Comment on above: Performed By: #### Jairon HARMAN [facility], 3039-3 #### [facility] ([id number]) [address] [place] [address] 04301 Sodium [Moles/Vol] 134 mmol/L Normal 134-146 [facility] Comment on above: Performed By: #### Jairon HARMAN [facility], 3040-3 #### [facility] ([id number]) [address] [place] [address] 31942 Urea nitrogen [Mass/Vol] 13 mg/dL Normal 5-23 [facility] Comment on above: Performed By: #### Jairon HARMAN CMP, 3040-3 #### [facility] ([id number]) [address] [place] [address] ABDOMEN AND PELVIS W CONT on [...] Reyez MD on 04/12/2024 2:35 PM Normal [facility] HCG ( test) Ql (U)o n 04-12-2024 Beta HCG ( test) Ql (U) Negative Normal NEG [facility] Comment on above: Performed By: #### 2 106-3 #### [facility] ([id number]) [address] [place] [address] 21792 LIPASEon 04-12-2024 Lipase [Catalytic activity/Vol] 34 U/L Normal 17-40 [facility] Comment on above: Performed By: #### C BCA, CMP, 3040-3 #### [facility] ([id number]) [address] [place] [address] 20318 URN MACROSCOPIC NURon 2023 BILIRUBIN ROSA MARIA Negative Normal NEG [facility] Comment on above: Performed By: #### N UM #### [facility] ([id number]) [address] [place] [address] 16317 BLOOD/HGB ROSA MARIA MODERATE Abnormal NEG [facility] Comment on above: Performed By: #### N UM #### [facility] ([id number]) [address] [place] [address] 38965 GLUCOSE ROSA MARIA Negative Normal NEG [facility] Comment on above: Performed By: #### N UM #### [facility] ([id number]) [address] [place] [address], [place] [address] KETONES ROSA MARIA Negative Normal NEG [facility] Comment on above: Performed By: #### N UM #### [facility] ([id number]) [address] [place] [address], [place] [address] LEUKOCYTE ESTERASE ROSA MARIA Negative Normal NEG [facility] Comment on above: Performed By: #### N UM #### [facility] ([id number]) [address] [place] [address], [place] [address] NITRITE ROSA MARIA Negative Normal NEG [facility] Comment on above: Performed By: #### N UM #### [facility] ([id number]) [address] [place] [address] [place] [address] PH ROSA MARIA 5.5 Normal 5.0-8.5 [facility] Comment on above: Performed By: #### N UM #### [facility] ([id number]) [address] [place] [address], [place] [address] PROTEIN ROSA MARIA Negative Normal NEG [facility] Comment on above: Performed By: #### N UM #### [facility] ([id number]) [address] [place] [address], [place] [address] SPECIFIC GRAVITY ROSA MARIA 1.025 Normal 1.003-1.035 [facility] Comment on above: Performed By: #### N UM #### [facility] ([id number]) [address] [place] [address], [place] [address] UROBILINOGEN ROSA MARIA 0.2 eu/dL Normal <1.1 [facility] Comment on above: Performed By: #### N UM #### [facility] ([id number]) [address] [place] [address], [place] [address] CBC AND AUTO DIFFon 11-23-19 24 ABSOLUTE BASOPHIL 0.0 X10E9/L Normal 0.0-0.2 [facility] Comment on above: Performed By: #### Jairon HARMAN CMP, 3039-08 #### [facility] ([id number]) [address] [place] [address] 90048 ABSOLUTE NEUTROPHIL 4.3 X10E9/L Normal 1.5-6.6 [facility] Comment on above: Performed By: #### Jairon HARMAN CMP, 3039-3 #### [facility] ([id number]) [address] [place] [address] 26520 Basophils/100 WBC (Bld) 0.7 % Normal [facility] Comment on above: Performed By: #### Jairon HARMAN CMP, 3039-08 #### [facility] ([id number]) [address] [place] [address] 26455 Eosinophils (Bld) [#/Vol] 0.1 10*3/uL Normal 0.0-0.4 [facility] Comment on above: Performed By: #### Jairon HARMAN CMP, 3039-08 #### [facility] ([id number]) [address] [place] [address] 91998 Eosinophils/100 WBC (Bld) 1.3 % Normal [facility] Comment on above: Performed By: #### Jairon HARMAN CMP, 3039-08 #### [facility] ([id number]) [address] [place] [address] 75901 Erythrocyte distribution width (RBC) [Ratio] 14.1 % Normal 11.5-15.0 [facility] Comment on above: Performed By: #### Jairon HARMAN CMP, 3 #### [facility] ([id number]) [address] [place] [address] 99996 Hematocrit (Bld) [Volume fraction] 35.1 % Normal 35-47 [facility] Comment on above: Performed By: #### Jairon HARMAN CMP, 3039-3 #### [facility] ([id number]) [address] [place] [address] 82905 Hemoglobin (Bld) [Mass/Vol] 12.4 g/dL Normal 11.7-15.5 [facility] Comment on above: Performed By: #### Jairon HARMAN CMP, 0-3 #### [facility] ([id number]) [address] [place] [address] 16282 Lymphocytes (Bld) [#/Vol] 1.1 10*3/uL Normal 1.0-3.5 [facility] Comment on above: Performed By: #### Jairon HARMAN CMP, 3 #### [facility] ([id number]) [address] [place] [address] 62438 Lymphocytes/100 WBC (Bld) 18.5 % Normal [facility] Comment on above: Performed By: #### Jairon HARMAN CMP, 3 #### [facility] ([id number]) [address] [place] [address] 31848 MCH (RBC) [Entitic mass] 29.7 pg Normal 27-34 [facility] Comment on above: Performed By: #### Jairon HARMAN CMP, 3 #### [facility] ([id number]) [address] [place] [address] 34073 MCHC (RBC) [Mass/Vol] 35.3 g/dL Normal 32-36 [facility] Comment on above: Performed By: #### Jairon HARMAN CMP, 3 #### [facility] ([id number]) [address] [place] [address] 98125 MCV (RBC) [Entitic vol] 84 fL Normal 80-100 [facility] Comment on above: Performed By: #### Jairon HARMAN CMP, 3039-3 #### [facility] ([id number]) [address] [place] [address] 19230 Monocytes (Bld) [#/Vol] 0.6 10*3/uL Normal 0-0.9 [facility] Comment on above: Performed By: #### Jairon HARMAN CMP, 3040-3 #### [facility] ([id number]) [address] [place] [address] 29176 Monocytes/100 WBC (Bld) 10.3 % Normal [facility] Comment on above: Performed By: #### Jairon HARMAN CMP, 3039-08 #### [facility] ([id number]) [address] [place] [address] 48434 Neutrophils/100 WBC (Bld) 69.2 % Normal [facility] Comment on above: Performed By: #### Jairon HARMAN CMP, 3039-08 #### [facility] ([id number]) [address] [place] [address] 19279 Platelet mean volume (Bld) [Entitic vol] 9.8 fL Normal 7-12 [facility] Comment on above: Performed By: #### Jairon HARMAN CMP, 3039-08 #### [facility] ([id number]) [address] [place] [address] 43480 Platelets (Bld) [#/Vol] 160 10*3/uL Normal 150-450 [facility] Comment on above: Performed By: #### Jairon HARMAN CMP, 3039-08 #### [facility] ([id number]) [address] [place] [address] 74970 RBC COUNT 4.17 X10E12/L Normal 3.80-5.20 [facility] Comment on above: Performed By: #### Jairon HARMAN CMP, 3039-08 #### [facility] ([id number]) [address] [place] [address] 36610 WBC (Bld) [#/Vol] 6.2 10*3/uL Normal 4.0-11.0 [facility] Comment on above: Performed By: #### C BCA, CMP, 3039-3 #### [facility] ([id number]) [address] [place] [address] 86298 COMPREHENSIVE METABOLIC PANE Bill 11-23-2023 Albumin [Mass/Vol] 4.2 g/dL Normal 3.2-5.3 [facility] Comment on above: Performed By: #### C BCA, CMP, 3039-3 #### [facility] ([id number]) [address] [place] [address] 16846 ALP [Catalytic activity/Vol] 50 U/L Normal 39-130 [facility] Comment on above: Performed By: #### C BCA, CMP, 3039-3 #### [facility] ([id number]) [address] [place] [address] 78455 ALT [Catalytic activity/Vol] 18 U/L Normal 0-31 [facility] Comment on above: Performed By: #### C BCA, CMP, 3039-3 #### [facility] ([id number]) [address] [place] [address] 39547 Anion gap [Moles/Vol] 5 mmol/L Normal 5-15 [facility] Comment on above: Performed By: #### Jairon BCA, CMP, 3039-3 #### [facility] ([id number]) [address] [place] [address] 32445 AST [Catalytic activity/Vol] 20 U/L Normal 0-41 [facility] Comment on above: Performed By: #### C BCA, CMP, 3039-3 #### [facility] ([id number]) [address] [place] [address] 04025 Bilirubin [Mass/Vol] 0.2 mg/dL Low 0.3-1.2 [facility] Comment on above: Performed By: #### C BCA, CMP, 3039-3 #### [facility] ([id number]) [address] [place] [address] [id number] Calcium [Mass/Vol] 8.8 mg/dL Normal 8.5-10.5 [facility] Comment on above: Performed By: #### C CANDACE HARMAN, 3040-3 #### [facility] ([id number]) [address] [place] [address] 54074 Chloride [Moles/Vol] 104 mmol/L Normal 98-109 [facility] Comment on above: Performed By: #### C CANDACE HARMAN, 3039-3 #### [facility] ([id number]) [address] [place] [address] 22086 CO2 [Moles/Vol] 25 mmol/L Normal 22-32 [facility] Comment on above: Performed By: #### Jairon HARMAN CMP, 3039-3 #### [facility] ([id number]) [address] [place] [address] 17144 Creatinine [Mass/Vol] 0.63 mg/dL Normal 0.40-1.00 [facility] Comment on above: Result Comment: METH OD TRACEABLE TO IDMS STANDARD Performed By: #### C CANDACE HARMAN, 0-3 #### [facility] ([id number]) [address] [place] [address] 84579 eGFR (CKD-EPI) NON-RACE DEPENDENT >90 Normal >59 [facility] Comment on above: Result Comment: Reported eGFR is based on the CKD-EPI 2021 equation that does not use a race coefficient. Performed By: #### C CANDACE HARMAN, 0-3 #### [facility] ([id number]) [address] [place] [address] 08298 Glucose [Mass/Vol] 116 mg/dL High 65-99 [facility] Comment on above: Performed By: #### C CANDACE HARMAN, 0-3 #### [facility] ([id number]) [address] [place] [address] 15070 Potassium [Moles/Vol] 3.8 mmol/L Normal 3.5-5.0 [facility] Comment on above: Performed By: #### C CANDACE HARMAN, 3040-3 #### [facility] ([id number]) [address] [place] [address] Protein [Mass/Vol] 6.7 g/dL Normal 6.0-8.0 [facility] Comment on above: Performed By: #### C CANDACE HARMAN, 3039-3 #### [facility] ([id number]) [address] [place] [address] Sodium [Moles/Vol] 134 mmol/L Normal 134-146 [facility] Comment on above: Performed By: #### Jairon HARMAN CMP, 3039-3 #### [facility] ([id number]) [address] [place] [address] 07446 Urea nitrogen [Mass/Vol] 10 mg/dL Normal 5-23 [facility] Comment on above: Performed By: #### C CANDACE HARMAN, 3039-3 #### [facility] ([id number]) [address] [place] [address]23 HCG ( test) Ql (U)o n 11-23-2023 Beta HCG ( test) Ql (U) Negative Normal NEG [facility] Comment on above: Performed By: #### 2 106-3 #### [facility] ([id number]) [address] [place] [address] LIPASEon 11-23-2023 Lipase [Catalytic activity/Vol] 49 U/L High 17-40 [facility] Comment on above: Performed By: #### C KIMANI CMP, 0-3 #### [facility] ([id number]) [address] [place] [address]145 URN MACROSCOPIC NURon 2023 BILIRUBIN ROSA MARIA Negative Normal NEG [facility] Comment on above: Performed By: #### N UM #### [facility] ([id number]) [address] [place] [address] [place] [address] BLOOD/HGB ROSA MARIA Negative Normal NEG [facility] Comment on above: Performed By: #### N UM #### [facility] ([id number]) [address] [place] [address] [place] [address] GLUCOSE ROSA MARIA Negative Normal NEG [facility] Comment on above: Performed By: #### N UM #### [facility] ([id number]) [address] [place] [address] [place] [address] KETONES ROSA MARIA Negative Normal NEG [facility] Comment on above: Performed By: #### N UM #### [facility] ([id number]) [address] [place] [address] [place] [address] LEUKOCYTE ESTERASE ROSA MARIA Negative Normal NEG [facility] Comment on above: Performed By: #### N UM #### [facility] ([id number]) [address] [place] [address] [place] [address] NITRITE ROSA MARIA Negative Normal NEG [facility] Comment on above: Performed By: #### N UM #### [facility] ([id number]) [address] [place] [address] [place] [address] PH ROSA MARIA 7.0 Normal 5.0-8.5 [facility] Comment on above: Performed By: #### N UM #### [facility] ([id number]) [address] [place] [address] PROTEIN ROSA MARIA Negative Normal NEG [facility] Comment on above: Performed By: #### N UM #### [facility] ([id number]) [address] [place] [address] [place] [address] SPECIFIC GRAVITY ROSA MARIA 1.010 Normal 1.003-1.035 [facility] Comment on above: Performed By: #### N UM #### [facility] ([id number]) [address] [place] [address] UROBILINOGEN ROSA MARIA 0.2 eu/dL Normal <1.1 [facility] Comment on above: Performed By: #### N UM #### [facility] ([id number]) [address] [place] [address] H PYLORI ANTIBODY IGGon 06-30 H. PYLORI IGG ABS 0.46 Index Value Normal 0.00-0.79 [facility] Comment on above: Result Comment: Nega tive <0.80 Equivocal 0.80 - 0.89 Positive >0.89 Performed By: #### H PYLLC #### [facility] [address] [place] [address] Dr. Donna Cornejo AMYLASEon 07-21-2022 Amylase [Catalytic activity/Vol] 83 U/L Normal 25-115 [facility] Comment on above: Performed By: #### A MY, CMP, LIPA, LIPID, T7, TSH #### [facility] [address] [place] [address] Dr. Donna Cornejo CBC AUTO DIFFon 07-21-2022 BASO # 0.0 103/ul Normal 0.0-0.1 [facility] Comment on above: Performed By: #### C BC #### [facility] [address] [place] [address] Dr. Donna Cornejo Basophils/100 WBC (Bld) 0.5 % Normal 0.2-2.0 [facility] Comment on above: Performed By: #### C BC #### [facility] [address] [place] [address] Dr. Donna Cornejo EO # 0.1 103/ul Normal 0.0-0.7 [facility] Comment on above: Performed By: #### C BC #### [facility] [address] [place] [address] Dr. Donna Cornejo Eosinophils/100 WBC (Bld) 1.7 % Normal 0.9-7.0 [facility] Comment on above: Performed By: #### C BC #### [facility] [address] [place] [address] Dr. Donna Cornejo Erythrocyte distribution width (RBC) [Ratio] 13.4 % Normal 11.0-15.0 [facility] Comment on above: Performed By: #### C BC #### [facility] [address] [place] [address] Dr. Donna Cornejo Hematocrit (Bld) [Volume fraction] 37.4 % Normal 36.0-48.0 [facility] Comment on above: Performed By: #### C BC #### [facility] [address] [place] [address] Dr. Donna Cornejo Hemoglobin (Bld) [Mass/Vol] 13.1 g/dL Normal 12.0-16.0 [facility] Comment on above: Performed By: #### C BC #### [facility] [address] [place] [address] Dr. Donna Cornejo IG # 0.01 10e3/ul Normal 0.00-0.03 [facility] Comment on above: Performed By: #### C BC #### [facility] [address] [place] [address] Dr. Donna Cornejo IG % 0.2 % Normal 0.0-0.5 [facility] Comment on above: Performed By: #### C BC #### [facility] [address] [place] [address] Dr. Donna Cornejo LYMPH # 2.5 103/ul Normal 1.2-3.8 [facility] Comment on above: Performed By: #### C BC #### [facility] [address] [place] [address] Dr. Donna Cornejo Lymphocytes/100 WBC (Bld) 41.8 % Normal 20.5-60.0 [facility] Comment on above: Performed By: #### C BC #### [facility] [address] [place] [address] Dr. Donna Cornejo MANUAL DIFF REQ NO Normal [facility] Comment on above: Performed By: #### C BC #### [facility] [address] [address] [address] Donna Cornejo MCH (RBC) [Entitic mass] 28.0 pg Normal 26.7-34.0 [facility] Comment on above: Performed By: #### C BC #### [facility] [address] [place] [address] Dr. Donna Cornejo MCHC (RBC) [Mass/Vol] 35.0 g/dL Normal 29.9-35.2 [facility] Comment on above: Performed By: #### C BC #### [facility] [address] [place] [address] Dr. Donna Cornejo MCV (RBC) [Entitic vol] 79.9 fL Critically low 81.0-99.0 [facility] Comment on above: Performed By: #### C BC #### [facility] [address] [place] [address] Dr. Donna Cornejo MONO # 0.5 103/ul Normal 0.3-0.8 [facility] Comment on above: Performed By: #### C BC #### [facility] [address] [place] [address] Dr. Donna Cornejo Monocytes/100 WBC (Bld) 8.5 % Normal 1.7-12.0 [facility] Comment on above: Performed By: #### C BC #### [facility] [address] [place] [address] Dr. Donna Cornejo NEUT # 2.8 103/ul Normal 1.4-6.5 [facility] Comment on above: Performed By: #### C BC #### [facility] [address] [place] [address] Dr. Donna Cornejo Neutrophils/100 WBC (Bld) 47.3 % Normal 43.0-75.0 [facility] Comment on above: Performed By: #### C BC #### [facility] [address] [place] [address] Dr. Donna Cornejo Platelet mean volume (Bld) [Entitic vol] 11.1 fL Normal 9.5-13.5 [facility] Comment on above: Performed By: #### C BC #### [facility] [address] [address] [address] Donna Cornejo PLT 187 103/ul Normal 150-450 [facility] Comment on above: Performed By: #### C BC #### [facility] [address] [address] [address] Donna Cornejo RBC 4.68 106/ul Normal 4.20-5.40 [facility] Comment on above: Performed By: #### C BC #### [facility] [address] [place] [address] Dr. Donna Cornejo WBC 6.0 103/ul Normal 4.0-11.0 [facility] Comment on above: Performed By: #### C BC #### [facility] [address] [place] [address] Dr. Donna Cornejo FREE THYROXINE INDEX T7on FTI 3.17 Normal 1.30-4.50 [facility] Comment on above: Performed By: #### A MY, CMP, LIPA, LIPID, T7, TSH #### [facility] [address] [place] [address] Dr. Donna Cornejo T3U 36.0 % Normal 30.0-39.0 [facility] Comment on above: Performed By: #### A MY, CMP, LIPA, LIPID, T7, TSH #### [facility] [address] [place] [address] Dr. Donna Cornejo T4 [Mass/Vol] 8.80 ug/dL Normal 4.80-13.90 [facility] Comment on above: Performed By: #### A MY, CMP, LIPA, LIPID, T7, TSH #### [facility] [address] [place] [address] Dr. Donna Cornejo GLYCOHEMOGLOBIN A1Con 2022 ADA RECOMMENDATION SEE BELOW Normal [facility] Comment on above: Result Comment: ADA RECOMMENDED LIMIT 4.0 - 6.0 ADA THERAPEUTIC TARGET < 7.0 ACTION SUGGESTED > 7.0 Performed By: #### A 1C #### [facility] [address] [address] [address] Donna Cornejo Glucose [Mass/Vol] 114 mg/dL Normal [facility] Comment on above: Performed By: #### A 1C #### [facility] [address] [address] [address] Donna Cornejo HbA1c (Bld) [Mass fraction] 5.6 % Normal 4.5-6.2 [facility] Comment on above: Performed By: #### A 1C #### [facility] [address] [address] [address] Donna Cornejo IRONon 07-21-2022 Iron [Mass/Vol] 55.0 ug/dL Normal 50.0-170.0 [facility] Comment on above: Performed By: #### I JENNA #### [facility] [address] [place] [address] Dr. Donna Cornejo LIPASEon 07-21-2022 Lipase [Catalytic activity/Vol] 181.0 U/L Normal 73.0-393.0 [facility] Comment on above: Performed By: #### A MY, CMP, LIPA, LIPID, T7, TSH #### [facility] [address] [place] [address] Dr. Donna Cornejo LIPID PROFILEon 07-21-2022 CHOL-HDL RATIO NORM SEE BELOW Normal [facility] Comment on above: Result Comment: 3.3 - 4.4 LOW RISK 4.4 - 7.1 AVERAGE RISK 7.1 - 11.0 MODERATE RISK >11.0 HIGH RISK Performed By: #### A MY, CMP, LIPA, LIPID, T7, TSH #### [facility] [address] [address] [address] Donna Cornejo Cholesterol [Mass/Vol] 138 mg/dL Normal <=200 [facility] Comment on above: Performed By: #### A MY, CMP, LIPA, LIPID, T7, TSH #### [facility] [address] [address] [address] Donna Cornejo Cholesterol in HDL [Mass/Vol] 53 mg/dL Normal 40-60 [facility] Comment on above: Performed By: #### A MY, CMP, LIPA, LIPID, T7, TSH #### [facility] [address] [address] [address] Donna Cornejo Cholesterol in LDL [Mass/Vol] 73.0 mg/dL Normal [facility] Comment on above: Performed By: #### A MY, CMP, LIPA, LIPID, T7, TSH #### [facility] [address] [address] [address] Donna Cornejo Cholesterol.total/ Cholesterol in HDL [Mass ratio] 2.6 {ratio} Normal [facility] Comment on above: Performed By: #### A MY, CMP, LIPA, LIPID, T7, TSH #### [facility] [address] [address] [address] Donna Cornejo HDL NORMAL > or = 60 mg/dl - LO W CARDIOVASCULAR RISK <40 mg/dl - HIGH CARDIOVASCULAR RISK Normal [facility] Comment on above: Performed By: #### A MY, CMP, LIPA, LIPID, T7, TSH #### [facility] [address] [address] [address] Donna Cornejo LDL CALC NORMAL SEE BELOW Normal [facility] Comment on above: Result Comment: <100 mg/dl OPTIMAL 100 - 129 mg/dl NEAR OR ABOVE OPTIMAL 130 - 159 mg/dl BORDERLINE HIGH 160 - 189 mg/dl HIGH >190 mg/dl VERY HIGH Performed By: #### A MY, CMP, LIPA, LIPID, T7, TSH #### [facility] [address] [address] [address] Donna Cornejo Triglyceride [Mass/Vol] 60 mg/dL Normal <=150 [facility] Comment on above: Performed By: #### A MY, CMP, LIPA, LIPID, T7, TSH #### [facility] [address] [address] [address] Donna Cornejo VLDL CALC 12.0 mg/dL Normal [facility] Comment on above: Performed By: #### A MY, CMP, LIPA, LIPID, T7, TSH #### [facility] [address] [address] [address] Donna Cornejo PROF 14(COMP METB)on 023 Albumin [Mass/Vol] 4.2 g/dL Normal 3.4-5.0 [facility] Comment on above: Performed By: #### A MY, CMP, LIPA, LIPID, T7, TSH #### [facility] [address] [place] [address] Dr. Donna Cornejo Albumin/Globulin [Mass ratio] 1.4 {ratio} Normal [facility] Comment on above: Performed By: #### A MY, CMP, LIPA, LIPID, T7, TSH #### [facility] [address] [address] [address] Donna Cornejo ALP [Catalytic activity/Vol] 57 U/L Normal 46-116 [facility] Comment on above: Performed By: #### A MY, CMP, LIPA, LIPID, T7, TSH #### [facility] [address] [place] [address] Dr. Donna Cornejo ALT [Catalytic activity/Vol] 16 U/L Normal 14-59 [facility] Comment on above: Performed By: #### A MY, CMP, LIPA, LIPID, T7, TSH #### [facility] [address] [place] [address] Dr. Donna Cornejo Anion gap [Moles/Vol] 15.5 mmol/L Normal [facility] Comment on above: Performed By: #### A MY, CMP, LIPA, LIPID, T7, TSH #### [facility] [address] [address] [address] Donna Cornejo AST [Catalytic activity/Vol] 17 U/L Normal 15-37 [facility] Comment on above: Performed By: #### A MY, CMP, LIPA, LIPID, T7, TSH #### [facility] [address] [address] [address] Donna Cornejo Bilirubin [Mass/Vol] 0.3 mg/dL Normal 0.2-1.0 [facility] Comment on above: Performed By: #### A MY, CMP, LIPA, LIPID, T7, TSH #### [facility] [address] [address] [address] Donna Cornejo Calcium [Mass/Vol] 9.5 mg/dL Normal 8.5-10.1 [facility] Comment on above: Performed By: #### A MY, CMP, LIPA, LIPID, T7, TSH #### [facility] [address] [address] [address] Donna Cornejo Chloride [Moles/Vol] 102 mmol/L Normal 98-107 [facility] Comment on above: Performed By: #### A MY, CMP, LIPA, LIPID, T7, TSH #### [facility] [address] [address] [address] Donna Cornejo CO2 [Moles/Vol] 24.7 mmol/L Normal 21.0-32.0 [facility] Comment on above: Performed By: #### A MY, CMP, LIPA, LIPID, T7, TSH #### [facility] [address] [address] [address] Donna Cornejo Creatinine [Mass/Vol] 0.76 mg/dL Normal 0.55-1.02 [facility] Comment on above: Performed By: #### A MY, CMP, LIPA, LIPID, T7, TSH #### [facility] [address] [address] [address] Donna Cornejo EGFR-AF MACEDONIAN >60 Normal >=60 [facility] Comment on above: Performed By: #### A MY, CMP, LIPA, LIPID, T7, TSH #### [facility] [address] [address] [address] Donna Cornejo EGFR-NON AF MACEDONIAN >60 Normal >=60 [facility] Comment on above: Performed By: #### A MY, CMP, LIPA, LIPID, T7, TSH #### [facility] [address] [address] [address] Donna Cornejo Globulin (S) [Mass/Vol] 3.0 g/dL Normal [facility] Comment on above: Performed By: #### A MY, CMP, LIPA, LIPID, T7, TSH #### [facility] [address] [address] [address] Donna Cornejo Glucose [Mass/Vol] 109 mg/dL Critically high 74-106 [facility] Comment on above: Performed By: #### A MY, CMP, LIPA, LIPID, T7, TSH #### [facility] [address] [place] [address] Dr. Donna Cornejo Potassium [Moles/Vol] 4.2 mmol/L Normal 3.5-5.1 [facility] Comment on above: Performed By: #### A MY, CMP, LIPA, LIPID, T7, TSH #### [facility] [address] [place] [address] Dr. Donna Cornejo Protein [Mass/Vol] 7.2 g/dL Normal 6.4-8.2 [facility] Comment on above: Performed By: #### A MY, CMP, LIPA, LIPID, T7, TSH #### [facility] [address] [place] [address] Dr. Donna Cornejo Sodium [Moles/Vol] 138 mmol/L Normal 136-145 [facility] Comment on above: Performed By: #### A MY, CMP, LIPA, LIPID, T7, TSH #### [facility] [address] [place] [address] Dr. Donna Cornejo Urea nitrogen [Mass/Vol] 11.0 mg/dL Normal 7.0-18.0 [facility] Comment on above: Performed By: #### A MY, CMP, LIPA, LIPID, T7, TSH #### [facility] [address] [place] [address] Dr. Donna Cornejo Urea nitrogen/Creatinin e [Mass ratio] 14.5 mg/mg Normal [facility] Comment on above: Performed By: #### A MY, CMP, LIPA, LIPID, T7, TSH #### [facility] [address] [place] [address] Dr. Donna Cornejo TSHon 07-21-2022 TSH 1.608 uIU/mL Normal 0.358-3.740 [facility] Comment on above: Performed By: #### A MY, CMP, LIPA, LIPID, T7, TSH #### [facility] [address] [place] [address] Dr. Donna Cornejo General Surgery Office/Clini c [...] low FODMAP diet; may need to see animal husbandry professor about possible food allergies; call with problems/questions. [...] inactivated - Not Given Patient Refuses Normal [facility] Comment on above: Result Comment: Elec [...] Postprandial abdominal bloating Seasonal allergic rhinitis Normal [facility] Pathology Noteon 08-25-2021 Pathology Note [id number]:127 Normal [facility] Operative Reporton Operative Report [id number]#[id number]:127 Normal [facility] Consent for Procedure/Surger yon 08-07-2021 Consent for Procedure/Surgery [id number]#[id number]:127 Normal [facility] Ambulatory Visit Summaryon 0 08-06-2021 Ambulatory [...] disc disease Migraine Seasonal allergic rhinitis Normal [facility] Physician Referralon 022 Physician Referral [id number]#1.00CD:127 Normal [facility] Vital Signs Date Time Vital Sign Value Performing Clinician Faci lity 06-27-2024 14:53-0500 Body mass index (BMI) [Ratio] 20.14 kg/m2 Renea Phipps [facility] 06-27-2024 14:53-0500 Body weight 54.88 kg Renea Phipps MD [facility] 06-27-2024 14:53-0500 Diastolic blood pressure 78 mm[Hg] Renea Phipps MD Work Phone: [facility] 06-27-2024 14:53-0500 Heart rate 87 /min [facility]ene[facility]ipp[facility] 06-27-2024 14:53-0500 Systolic blood pressure 126 mm[Hg] Renea Phipps MD Work Phone: [facility] [employer] 06-22-2024 11:43-0500 Body temperature 98.1 [degF] Delfino Thomas DO [facility] 06-22-2024 11:43-0500 Diastolic blood pressure 64 mm[Hg] Delfino Thomas DO [facility] 06-22-2024 11:43-0500 Heart rate 75 /min Delfino Thomas DO [facility] 06-22-2024 11:43-0500 Respiratory rate 18 /min Delfino Thomas DO [facility] 06-22-2024 11:43-0500 SaO2% (BldA) [Mass fraction] 98 % Delfino Thomas DO [facility] 06-22-2024 11:43-0500 Systolic blood pressure 109 mm[Hg] Delfino Thomas DO [facility] 06-22-2024 04:13-0500 Body height 165.1 cm Delfino Faustino GLOVER [facility] 06-22-2024 04:13-0500 Body mass index (BMI) [Ratio] 19.64 kg/m2 Delfino Thomas DO Work Phone: [facility] 06-22-2024 04:050 Body weight 53.52 kg Delfino Thomas DO Work Phone: [facility] Encounters Encounter Date Encounter Type Care Provider Facility Start: 08-01-2024 ambulatory [facility] Start: 07-14-2024 End: 07-14-2024 Office outpatient visit 15 minutes Jose Kim MD Work Phone: [facility] Comment on above: Neurogenic claudicat ion (Primary Dx) Start: 07-14-2024 End: 07-14-2024 ambulatory [facility] Start: 07-07-2024 End: 07-07-2024 ambulatory DELFINO Ye [facility] Start: 07-05-2024 End: [facility]: 07-01-2024 amb[facility] Start: 06-27-2024 End: 06-27-2024 Office outpatient new 45 minutes Renea Phipps MD Work Phone: [facility] Comment on above: Back pain; Atrophy of muscle of right thigh Start: 06-27-2024 End: 06-27-20[facility] Start: 06-22-2024 End: 06-22-2024 ambulatory [facility] Start: 06-21-2024 End: 06-22-2024 Emergency department patient visit Yunior Thomas MD Work Phone: [facility] Comment on above: Back pain (Primary D x); Atrophy of muscle of right thigh Start: 06-18-2024 End: 06-18-2024 Emergency department patient visit [facility] Start: 04-14-2024 End: 04-14-2024 ambulatory LEONIDAS JUDD [facility] Start: 04-12-2024 End: 04-12-2024 Emergency department patient visit FENG GREENBERG [facility] Start: 11-23-2023 End: 11-23-2023 Emergency department patient visit FENG GREENBERG [facility] Start: 07-23-2022 Encounter for genera l adult medical examination without abnormal findings DR FENG GREENBERG . [facility] Start: 07-21-2022 End: 07-22-[address] [...] Td Vaccines (9 - Td or Tdap) [facility] Start: 06-27-2025 Adult BMI Screening Adult BMI Screen ing [facility] Start: 06-27-2025 Tobacco Screening Tobacco Screening [facility] Start: 07-14-2024 End: 07-14-2024 Patient encounter procedure 07/14/2024 2:10 PM EST Office Visit [facility] [address] [address] Jose Kim MD [address], [address] [address] [facility] Start: 07-07-2024 End: 07-07-2024 Patient encounter procedure 07/07/2024 3:30 PM EST Appointment [facility] [address] [place] [address] Delfino Thomas, DO [address] [place] [address] [facility] Start: 07-05-2024 End: 07-05-2024 Patient encounter procedure 07/05/2024 10:45 AM EST Appointment [facility] [address] [place] [address] [facility] Start: 06-22-2024 End: 06-22-2025 US.doppler Lower extremity artery - bilateral Vas art duplex lwr bilateral Vascular Ultrasound Routine Back pain Atrophy of muscle of right thigh Expected: 06/22/2024, Expires: 06/22/2025 [employer] Work Phone: Comment on above: Expected: 06/22/2024 , Expires: 06/22/2025 Start: 02-28-2024 Influenza vaccination Influenza Vacc ine [facility] Start: 01-22-2012 Screening for malign ant neoplasm of cervix Pap Smear [facility] Start: 2003 Depression Screening Depression Scre ening [facility] Oxygen Therapy - Maintain SpO2: 90%; *STOCK BLENDER Guidelines for O2: Yes; Document: \[employer]anc[email or web address]\epi c\EPIC_Reference\Orders\ Respiratory Care Guidelines\CPG Oxygen 2022.pdf Oxygen Therapy - Maintain SpO2: 90%; *STOCK BLENDER Guidelines for O2: Yes; Document: \[email or web address]\ep ic\EPIC_Reference\Order s\Respiratory Care Guidelines\CPG Oxygen 2022.pdf Respiratory Care Routine As Needed until discontinued starting 06/22/2024 [employer] Work Phone: Comment on above: As Needed until disc ontinued starting 06/22/2024 Payers Date Payer Category Payer Medicaid [employer] [id number] 1991 Unknown [id number] 1991 Unknown [id number] [id number] 1991 Unknown [id number] [id number] 1991 Unknown [id number] [id number] 1991 Unknown [id number] [id number] 1991 Unknown [id number] [id number] 1991 Unknown [id number] [id number] 1991 Unknown [id number] [id number] 1991 Unknown [id number] [id number] 1991 Unknown [id number] [id number] 1991 Unknown [id number] [id number] 1991 Unknown [id number] [id number] 1991 Unknown [id number] [id number]86 1991 Unknown [id number] [id number] 1991 Unknown [id number] [id number] 1959 Medicaid [id number] 1959 Unknown [id number] Social History Date Type Detail Facility Start: [facility]23[facility]2023 [facility] History of tobacco use Current [facility] History of tobacco use Cigarette Smoker [facility] Start: 11-23-2023 Tobacco use and exposure Smokeless tobacco non-user [facility] Start: 06-21-2024 End: 07-14-2024 Alcoholic beverage intake Lifetime non-drinker (finding) [facility] Start: 08-09-2020 End: 06-22-2024 History of Social function [facility] Start: 08-09-2020 End: 06-22-[address] [facility] Utilities [facility] Has the [employer], [employer], [employer], or water company threatened to shut off services in your home in past 12Mo No [facility] Adolescent depressio n screening assessment 0 [facility] Start: 1991 Sex assigned at Not on file [facility] Start: 02-01-2015 Sex Female (finding) [facility] Clinical Notes 08-06-2021 to 07-14-2024 Jose [...] Jose Kim MD, PRINCESS, RPVI, FSVS, FACS [facility] This note was created with the assistance of a speech recognition program. While intending to generate a timely document that accurately reflects the content of the visit, no guarantee can be provided that every grammatical or spelling mistake has been or will be identified or corrected. Thank you for your understanding. documented in this encounter [facility] 07-14-2024 Evaluation + Plan note Associated Problem(s): Neurogenic claudication No evidence of significant peripheral arterial disease. Recommend evaluation and management by neuro spine. She is planned to have procedure. [facility] 07-14-2024 Miscellaneous Notes Associated Problem(s): Neurogenic claudication No evidence of significant peripheral arterial disease. Recommend evaluation and management by neuro spine. She is planned to have procedure. documented in this encounter [facility] 06-27-2024 History of Presen t illness Narrative Images from the original note were not included. [facility] [address] [address] Subjective: Patient ID: Doug Gomez is a [...] Renea Phipps MD documented in this encounter [facility] 06-22-2024 Nurse Note Patient IV has been removed. Patient educated and has no questions or concerns. [facility] 06-22-2024 Nurse Note Patient IV has been removed. Patient educated and has no questions or concerns. documented in this encounter [facility] 06-22-2024 Plan of care note Problem: Pain Goal: Patient goal is pain score less than 4, able to rest, and participant in treatment plan as appropriate Description: INTERVENTIONS: 1. Encourage patient or legal dental sales representative to report early pain and ask [...] per policy 9. Teach patient or legal dental sales representative interventions for comforting Outcome: Adequate for [...] at the bedside 7. Instruct patient/ patient dental sales representative about use of safety devices 8. Include patient/ patient dental sales representative in decisions related to safety Outcome: [...] hygiene technique. 7. Identify and instruct patient/patient dental sales representative in use of appropriate isolation precautions for identified infection/symptoms. 8. Provide and discuss with patient/patient dental sales representative on educational MDRO sheet. 9. Encourage and monitor nutritional status daily and consult travel specialist if indicated. 10. Implement neutropenic guidelines as needed. Outcome: Adequate for Discharge Problem: Knowledge Deficit Goal: Patient/patient dental sales representative demonstrates understanding of disease process, treatment [...] Score of =/> 25 or indicated by [facility] Assessment Goal: Patient should be free from fall Description: Interventions: 1. Pearce to environment 2. Hourly rounds addressing the [...] non-skid footwear 11. Teach patient and patient dental sales representative to maintain environment for safety and [...] (cane, walker) within reach 19. Request patient dental sales representative bring adaptive equipment/mobility aids from home or obtain and provide as needed 20. Consult pharmacy regarding effects of med's affecting mobility, cognition, and alternatives 21. Obtain physician order for PT if risk factors associated with mobility are present 22. Obtain physician order for OT as appropriate 23. Utilize diversional activities 24. Educate patient and patient dental sales representative how to maintain a safe environment during visitation times (notify nurse prior to leaving bedside) 25. Consider appropriateness of medical or non-medical specialist 26. Set up voiding schedule as appropriate [...] pt experiencing intermittent numbness/tingling in RLE. [facility] 06-22-2024 Miscellaneous Notes Problem: Pain Goal: Patient goal is pain score less than 4, able to rest, and participant in treatment plan as appropriate Description: INTERVENTIONS: 1. Encourage patient or legal dental sales representative to report early pain and ask [...] per policy 9. Teach patient or legal dental sales representative interventions for comforting Outcome: Adequate for [...] at the bedside 7. Instruct patient/ patient dental sales representative about use of safety devices 8. Include patient/ patient dental sales representative in decisions related to safety Outcome: [...] hygiene technique. 7. Identify and instruct patient/patient dental sales representative in use of appropriate isolation precautions for identified infection/symptoms. 8. Provide and discuss with patient/patient dental sales representative on educational MDRO sheet. 9. Encourage and monitor nutritional status daily and consult travel specialist if indicated. 10. Implement neutropenic guidelines as needed. Outcome: Adequate for Discharge Problem: Knowledge Deficit Goal: Patient/patient dental sales representative demonstrates understanding of disease process, treatment [...] Score of =/> 25 or indicated by [facility] Assessment Goal: Patient should be free from fall Description: Interventions: 1. Pearce to environment 2. Hourly rounds addressing the [...] non-skid footwear 11. Teach patient and patient dental sales representative to maintain environment for safety and [...] (cane, walker) within reach 19. Request patient dental sales representative bring adaptive equipment/mobility aids from home or obtain and provide as needed 20. Consult pharmacy regarding effects of med's affecting mobility, cognition, and alternatives 21. Obtain physician order for PT if risk factors associated with mobility are present 22. Obtain physician order for OT as appropriate 23. Utilize diversional activities 24. Educate patient and patient dental sales representative how to maintain a safe environment during visitation times (notify nurse prior to leaving bedside) 25. Consider appropriateness of medical or non-medical specialist 26. Set up voiding schedule as appropriate [...] at the bedside 7. Instruct patient/ patient dental sales representative about use of safety devices 8. Include patient/ patient dental sales representative in decisions related to safety Outcome: Progressing Note: Evaluation of progress towards goal: Pt is free from falls. Bed is in lowest position and brakes are locked. Proper identification is used. Problem: Knowledge Deficit Goal: Patient/patient dental sales representative demonstrates understanding of disease process, treatment [...] be free from fall Description: Interventions: 1. Pearce to environment 2. Hourly rounds addressing the [...] non-skid footwear 11. Teach patient and patient dental sales representative to maintain environment for safety and [...] (cane, walker) within reach 19. Request patient dental sales representative bring adaptive equipment/mobility aids from home or obtain and provide as needed 20. Consult pharmacy regarding effects of med's affecting mobility, cognition, and alternatives 21. Obtain physician order for PT if risk factors associated with mobility are present 22. Obtain physician order for OT as appropriate 23. Utilize diversional activities 24. Educate patient and patient dental sales representative how to maintain a safe environment during visitation times (notify nurse prior to leaving bedside) 25. Consider appropriateness of medical or non-medical specialist 26. Set up voiding schedule as appropriate [...] Description: INTERVENTIONS: 1. Encourage patient or legal dental sales representative to report early pain and ask [...] per policy 9. Teach patient or legal dental sales representative interventions for comforting Outcome: Progressing Note: [...] at the bedside 7. Instruct patient/ patient dental sales representative about use of safety devices 8. Include patient/ patient dental sales representative in decisions related to safety Outcome: [...] hygiene technique. 7. Identify and instruct patient/patient dental sales representative in use of appropriate isolation precautions for identified infection/symptoms. 8. Provide and discuss with patient/patient dental sales representative on educational MDRO sheet. 9. Encourage and monitor nutritional status daily and consult travel specialist if indicated. 10. Implement neutropenic guidelines as needed. Outcome: Progressing Note: Evaluation of progress towards goal: Problem: Moderate - High Risk Fall Score Description: Lawson Fall Score of =/> 25 or indicated by [facility] Assessment Goal: Patient should be free from fall Description: Interventions: 1. Pearce to environment 2. Hourly rounds addressing the [...] non-skid footwear 11. Teach patient and patient dental sales representative to maintain environment for safety and [...] (cane, walker) within reach 19. Request patient dental sales representative bring adaptive equipment/mobility aids from home or obtain and provide as needed 20. Consult pharmacy regarding effects of med's affecting mobility, cognition, and alternatives 21. Obtain physician order for PT if risk factors associated with mobility are present 22. Obtain physician order for OT as appropriate 23. Utilize diversional activities 24. Educate patient and patient dental sales representative how to maintain a safe environment during visitation times (notify nurse prior to leaving bedside) 25. Consider appropriateness of medical or non-medical specialist 26. Set up voiding schedule as appropriate [...] progress towards goal: documented in this encounter [facility] 06-22-2024 Hospital course Narrative Images from the original note were not included. ED Observation Discharge Summary BRIEF OVERVIEW Admitting Provider: Delfino Thomas, Discharge Provider: CAMI JENSEN PA-C Primary Care Physician: FENG GREENBERG MD [phone] Observation Services End Date and Time: No [...] evaluation treatment. Patient was initially seen in [facility], transferred to [facility], and placed in ED observation for MRI/further evaluation. Patient currently is not having any color changes to her foot. Patient is feeling somewhat better, but continues to declined any significant pain treatment at this time. Patient had CT scan performed at [facility] that showed a bulging disc L5 [...] and oriented to person, place, and time. [place] Coma Scale Eyes 4. Verbal 5. Motor 6. [place] Coma Total 15 Skin: Skin is warm [...] Your Medications These medications were sent to [facility]/pharmacy #[id number] AT [place] [address] gabapentin 300 mg capsule lidocaine 5 % [...] pursue inpatient stay. documented in this encounter [facility] 06-22-2024 Plan of care note Problem: [...] pt experiencing intermittent numbness/tingling in RLE. [facility] 06-22-2024 Plan of care note Problem: [...] at the bedside 7. Instruct patient/ patient dental sales representative about use of safety devices 8. Include patient/ patient dental sales representative in decisions related to safety Outcome: Progressing Note: Evaluation of progress towards goal: Pt is free from falls. Bed is in lowest position and brakes are locked. Proper identification is used. Problem: Knowledge Deficit Goal: Patient/patient dental sales representative demonstrates understanding of disease process, treatment [...] be free from fall Description: Interventions: 1. Pearce to environment 2. Hourly rounds addressing the [...] non-skid footwear 11. Teach patient and patient dental sales representative to maintain environment for safety and [...] (cane, walker) within reach 19. Request patient dental sales representative bring adaptive equipment/mobility aids from home or obtain and provide as needed 20. Consult pharmacy regarding effects of med's affecting mobility, cognition, and alternatives 21. Obtain physician order for PT if risk factors associated with mobility are present 22. Obtain physician order for OT as appropriate 23. Utilize diversional activities 24. Educate patient and patient dental sales representative how to maintain a safe environment during visitation times (notify nurse prior to leaving bedside) 25. Consider appropriateness of medical or non-medical specialist 26. Set up voiding schedule as appropriate (every 2 hours) Outcome: Progressing Note: Evaluation of progress towards goal: Pt educated on Fall Risk . Pt has non-slip socks on, 2 side rails up, up with assist. [facility] 06-22-2024 History and physical note Images from the original note were not included. ED Observation History and Physical Note PROVIDERS: Primary Care Physician: FENG GREENBERG MD [phone] Admitting Provider: Delfino Thomas [facility] START TIMES: ED Date: 06/22/2024 0013 [...] evaluation treatment. Patient was initially seen in [facility], transferred to [facility], and placed in ED observation for MRI/further evaluation. Patient currently is not having any color changes to her foot. Patient is feeling somewhat better, but continues to declined any significant pain treatment at this time. Patient had CT scan performed at [facility] that showed a bulging disc L5 [...] The case was discussed with the following insurance consultant teams. Consulting Providers Provider Service Specialty [...] Code Status Information Code Status Full Code [facility] 06-22-2024 History and physical note Images from the original note were not included. ED Observation History and Physical Note PROVIDERS: Primary Care Physician: FENG GREENBERG MD [phone] Admitting Provider: Delfino Thomas DO CARE START [...] evaluation treatment. Patient was initially seen in [facility], transferred to [facility], and placed in ED observation for MRI/further evaluation. Patient currently is not having any color changes to her foot. Patient is feeling somewhat better, but continues to declined any significant pain treatment at this time. Patient had CT scan performed at [facility] that showed a bulging disc L5 [...] The case was discussed with the following insurance consultant teams. Consulting Providers Provider Service Specialty [...] Pain Patients Only: The ASCVD Risk score ([place] DK, et al., 2019) failed to calculate [...] Status Full Code [facility] Plan of care note Problem: Pain Goal: Patient goal is pain score less than 4, able to rest, and participant in treatment plan as appropriate Description: INTERVENTIONS: 1. Encourage patient or legal dental sales representative to report early pain and ask [...] per policy 9. Teach patient or legal dental sales representative interventions for comforting Outcome: Progressing Note: [...] at the bedside 7. Instruct patient/ patient dental sales representative about use of safety devices 8. Include patient/ patient dental sales representative in decisions related to safety Outcome: [...] hygiene technique. 7. Identify and instruct patient/patient dental sales representative in use of appropriate isolation precautions for identified infection/symptoms. 8. Provide and discuss with patient/patient dental sales representative on educational MDRO sheet. 9. Encourage and monitor nutritional status daily and consult travel specialist if indicated. 10. Implement neutropenic guidelines as needed. Outcome: Progressing Note: Evaluation of progress towards goal: Problem: Moderate - High Risk Fall Score Description: Lawson Fall Score of =/> 25 or indicated by [facility] Assessment Goal: Patient should be free from fall Description: Interventions: 1. Pearce to environment 2. Hourly rounds addressing the [...] non-skid footwear 11. Teach patient and patient dental sales representative to maintain environment for safety and [...] (cane, walker) within reach 19. Request patient dental sales representative bring adaptive equipment/mobility aids from home or obtain and provide as needed 20. Consult pharmacy regarding effects of med's affecting mobility, cognition, and alternatives 21. Obtain physician order for PT if risk factors associated with mobility are present 22. Obtain physician order for OT as appropriate 23. Utilize diversional activities 24. Educate patient and patient dental sales representative how to maintain a safe environment during visitation times (notify nurse prior to leaving bedside) 25. Consider appropriateness of medical or non-medical specialist 26. Set up voiding schedule as appropriate [...] Progressing Note: Evaluation of progress towards goal: [facility] 06-22-2024 Emergency department Triage note Patient presented to [facility] ER due to losing muscle mass in her Rt buttock and RLE turning purple along with shaking. [facility] 06-22-2024 Emergency department Note Patient presented to [facility] ER due to losing muscle mass in her Rt buttock and RLE turning purple along with shaking. documented in this encounter [facility] 08-06-2021 Note Chief Complaint consultation for RUQ [...] adapter, 2 puf (more content not included)... [facility] Comment on above: Result Comment: Elec tronically Signed By: POPPY VALDEZ, Fred Jain\Date and Time Signed: 08/06/21 15:12 EST Evaluation note Diagnosis Back pain- Primary Unspecified backache Back pain Unspecified backache Atrophy of muscle of right thigh Muscle wasting Muscular wasting and disuse atrophy, not elsewhere classified Trouble walking Difficulty in walking [facility] Back pain Unspecified backache Atrophy of muscle of right thigh [facility] Diagnosis Neurogenic claudication- Primary Spinal stenosis of lumbar region [facility] Attachments The following attachments cannot be sent through Care Everywhere. * Upper Back Pain Discharge Instructions (Albanian) documented in [facility]ructionsNot on file documented in this encounterProV[facility] SystemInstructionsNot on file [facility] in [facility] Summary Purpose Family History No [...] section and content) DATE CREATED AUTHOR 09/15/2021 [facility] DATE CREATED AUTHOR AUTHOR'S ORGANIZ ATION 08/26/2022 [facility] DATE CREATED AUTHOR AUTHOR'S ORGANIZ ATION 06/23/2024 [facility] DATE CREATED AUTHOR AUTHOR'S ORGANIZ ATION 07/17/2024 [facility] DATE CREATED AUTHOR AUTHOR'S ORGANIZ ATION 08/10/2024 [facility] Reason for Visit (unrecogniz ed section [...] right thigh Delfino Thomas, DO [address] [place] [address] Phone: tel: fax: [facility] [address] [place] [address] Phone: tel:[phone] fax: Referral ID Status Reason Start Date Expiration Date Visits Requested Visits Authorized [id number] Pending Review Specialty Services Required 06/22/2025 1 [...] Care Teams (unrecognized sec tion and content) Fire Claims Adjuster Relationship Specialty Start Date End Date Feng Greenberg MD PCP - General Family Medicine 04/12/24 Fire Claims Adjuster Relationship Specialty Start Date End Date Feng Greenberg MD PCP - General Family Medicine 04/12/24 Fire Claims Adjuster Relationship Specialty Start Date End Date Feng [...] BE BASED ON THE PRIMARY CLINICAL RECORDS. [facility]. provides no warranty or guarantee of the accuracy or completeness of information in this document.
== END 2024-10-12 10:01 | disposition home or self-care (01) ==
LOC: US 10:01
PROVIDERS: PCP Family Medicine; Visit Provider Family Medicine
DX: R74.8 Abnormal levels of other serum enzymes (principal)
CPT/HCPCS: 76705

== ENCOUNTER 2024-10-31 09:16 | Outpatient (OUT) | payer MEDICAID, SELFPAY ==
--- NOTE | 2024-10-31 10:04 | CT_ITS ---
The [address] [address] Patient Name: JARRELL WHITING MRN: [id number] date: 1990 Sex: F Assigned Patient Location: CT Current Patient Location: CT Accession/Order Number: [id number] Exam Date: 10/31/2024 12:05 Report Date: 10/31/2024 12:06 At the request of: FENG DURAN MD Procedure: CT head/brain wo con CT BRAIN WITHOUT CONTRAST: CLINICAL HISTORY: Migraine COMPARISON: CT brain 10/10/2024 TECHNIQUE: Contiguous axial unenhanced images were obtained through the brain. This CT exam was performed using one or more following dose reduction techniques: Automated exposure control, adjustment of the mA and/or kV according to patient size, or use of iterative reconstruction technique. FINDINGS: There is no evidence of midline shift, intra or extra-axial fluid collection, hemorrhage or CT evidence of stroke. Posterior fossa appears unremarkable. Visualized intraorbital contents demonstrate no acute findings. Visualized paranasal sinuses are clear. The surrounding soft tissues are normal. CT/CT head/brain wo con IMPRESSION: NO ACUTE INTRACRANIAL ABNORMALITY. Impression dictated by: Cliff Luna Jr., D.O. 10/31/2024 12:06 PM Dictation Location: [place] [address] Electronically authenticated by: [id number] Y Date: 10/31/2024 12:06
== END 2024-10-31 09:17 | disposition home or self-care (01) ==
LOC: CT 09:17
PROVIDERS: PCP Family Medicine; Visit Provider Family Medicine
DX: G43.909 Migraine, unspecified, not intractable, without status migrainosus (principal)
CPT/HCPCS: 70450

== ENCOUNTER 2024-11-11 09:55 | Outpatient (OUT) | payer MEDICAID, SELFPAY ==
--- NOTE | 2024-11-11 10:01 | MR_ITS ---
The [address] [address] Patient Name: JARRELL WHITING MRN: [id number] date: 1990 Sex: F Assigned Patient Location: MRI Current Patient Location: MRI Accession/Order Number: [id number] Exam Date: 11/11/2024 14:51 Report Date: 11/11/2024 14:55 At the request of: MATTHIEU KOWALSKI Procedure: MR lumbar spine wo con MR lumbar spine wo con 11/11/2024 10:48 AM SIGNS AND SYMPTOMS: Chronic low back pain with radiculopathy, history of spinal fusion PROTOCOL: Multiplanar multisequence MR images of the lumbar spine without IV contrast COMPARISON: 09/30/2024. FINDINGS: The bones of the lumbar spine are in anatomic alignment. There is preservation of vertebral body heights. Posterior fusion and decompression is noted at L5-S1. 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 There is a benign-appearing hemangioma in the L3 vertebral body. The conus terminates at the superior endplate of the L2 vertebral body level. No epidural or paraspinous fluid collection is appreciated. At T12-L1: There is a normal disc, central canal, and neural foramen. At L1-L2: There is a normal disc, central canal, and neural foramen. At L2-L3: There is a normal disc, central canal, and neural foramen. At L3-L4: There is a normal disc, central canal, and neural foramen. At L4-L5: There is a normal disc, central canal, and neural foramen. At L5-S1: There is a normal disc, central canal, and neural foramen. MR/MR lumbar spine wo con IMPRESSION: Posterior fusion and decompression is noted at L5-S1. 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 No significant spinal canal or neural foraminal stenosis. Impression dictated by: Fabián Tovar M.D. 11/11/2024 2:55 PM Dictation Location: [place] [address] Electronically authenticated by: [id number] Y Date: 11/11/2024 14:55
--- OUTSIDE RECORDS SUMMARY | 2024-11-11 10:04 | XMS_ITS | CCD ---
Author Organization [facility] Care Team Providers Care Digital Editor Name Role Phone RENEE ., DR TONEY Attending Unavailable HOY ., DR TONEY Admitting Unavailable HOY ., DR TONEY Primary Care Unavailable HOY ., DR TONEY Consulting Unavailable HOY ., DR TONEY Admitting Unavailable HOY ., DR TONEY Primary Care Unavailable HOY ., DR TONEY Consulting Unavailable HOY ., DR TONEY Attending Unavailable Terencey Feng VALDEZ Primary Care Provider [phone] HOY, FENG M Primary Care Unavailable YUNIOR [...] Acetaminophen / HYDROcodone Drug Allergy 11-28-2014 [facility] Repository (6 sources) Acetaminophen / HYDROcodone; Translations: [HYDROCODONE-ACETA MINOPHEN] Drug Allergy 05-10-2021 [facility] Medications Current Medications Medication Drug Class(es) Dates Sig (Normalized) Sig (Original) acetaminophen 325 mg oral tablet (1 source) Start: 06-22-2024 take 1 tablet by mouth every six hours as needed for headache 650 mg, oral, Every 6 hours PRN, headaches, temperature greater than 38.3 C, Starting on Thu06/22/24 at 0301 [id number] actuat albuterol 0.09 mg/actuat metered dose [...] Johnson MD on 07/05/2024 11:07 AM Normal [facility] CREATININEon 06-22-2024 Creatinine [Mass/Vol] 0.72 mg/dL Normal 0.40-1.00 [facility] Comment on above: Result Comment: METH OD TRACEABLE TO IDME STANDARD Performed By: #### H H, PLTCT, PUTTY AND PATCH WORKER #### [facility] ([id number]) [address], [address] [place] [address] eGFR (CKD-EPI) NON-RACE DEPENDENT >90 Normal >59 [facility] Comment on above: Result Comment: Reported eGFR is based on the CKD-EPI 2020 equation that does not use a race coefficient. Performed By: #### H H, PLTCT, PUTTY AND PATCH WORKER #### [facility] ([id number]) [address], [address] [place] [address] Creatinine includes GFR, ser umon 06-22-2024 Creatinine [Mass/Vol] 0.72 mg/dL 0.40 - 1.00 mg/dL [facility] Comment on above: METHOD TRACEABLE TO IDMS STANDARD eGFR (CKD-EPI)non-race dependent - PINF [facility] Comment on above: Reported eGFR is based on the CKD-EPI 2020 equation that does not use a race coefficient. [facility] HGB AND HCTon 06-22-2024 Hematocrit (Bld) [Volume fraction] 33.3 % Low 35-47 [facility] Comment on above: Performed By: #### H H, PLTCT, PUTTY AND PATCH WORKER #### [facility] ([id number]) [address], [address] [place] [address] Hemoglobin (Bld) [Mass/Vol] 11.3 g/dL Low 11.7-15.5 [facility] Comment on above: Performed By: #### H H, PLTCT, PUTTY AND PATCH WORKER #### [facility] ([id number]) [address] [place] [address] Hemoglobin and hematocrit, b loodon 06-22-2024 Hematocrit (Bld) [Volume fraction] 33.3 % Low 35 - 47 % [facility] Hemoglobin (Bld) [Mass/Vol] 11.3 g/dL Low 11.7 - 15.5 g/dL [facility] Interpretation and review of laboratory results Abnormal [facility] MR LUMBAR SPINE WO CONTon MR LUMBAR [...] Suhas Kelly MD on 06/22/2024 7:18 AM [facility] MR Lumbar spine WO contrasto n [...] Suhas Kelly MD on 06/22/2024 7:18 AM [facility] Suhas Kelly MD - 06/22/2024 LUMBAR [...] Suhas Kelly MD on 06/22/2024 7:18 AM [facility] Radiology Study observation (narrative) [facility] MR Lumbar spine WO contrastO rdered By: Suhas Kelly on 06-22-2024 [facility] Work Phone: No Panel Informationon 06-22 [facility] PLATELET COUNT AND MPVon Platelet mean volume (Bld) [Entitic vol] 11.3 fL Normal 7-12 [facility] Comment on above: Performed By: #### H H, PLTCT, PUTTY AND PATCH WORKER #### [facility] ([id number]) [address], [address] [place] [address] Platelets (Bld) [#/Vol] 180 10*3/uL Normal 150-450 [facility] Comment on above: Performed By: #### H H, PLTCT, PUTTY AND PATCH WORKER #### [facility] ([id number]) [address] [place] [address] Platelet counton 06-22-2024 Platelet mean volume (Bld) [Entitic vol] 11.3 fL 7 - 12 fL [facility] Platelets (Bld) [#/Vol] 180 10*3/uL [facility] CT HIP RT WO CONTon 06-21-20 CT [...] Ralph MD on 06/21/2024 9:59 PM Normal [facility] CT LUMBAR SPINE WO CONTon [...] Burleson MD on 06/21/2024 10:04 PM Normal [facility] XR HIP RT 2-3 VIEWS [...] Solorzano MD on 06/18/2024 4:37 AM Normal [facility] XR SPINE LUMBAR 2 OR [...] Solorzano MD on 06/18/2024 4:37 AM Normal [facility] GI PANELon 04-14-2024 Gastrointestinal pathogens [...] SAPOVIRUS Not detected (qualifier value) Normal NDET [facility] Comment on above: Performed By: #### C KIMANI CMP, 3039-3 #### [facility] ([id number]) [address] [place] [address] 19622 CBC AND AUTO DIFFon 10-15-20 24 ABSOLUTE BASOPHIL 0.0 X10E9/L Normal 0.0-0.[address] [facility] Comment on above: Performed By: #### Jairon HARMAN CMP, 3039-3 #### [facility] ([id number]) [address] [place] [address]45[address] ABSOLUTE NEUTROPHIL 9.5 X10E9/L High 1.5-6.6 [facility] Comment on above: Performed By: #### Jairon HARMAN CMP, 3 #### [facility] ([id number]) [address] [place] [address] 35017 Basophils/100 WBC (Bld) 0.2 % Normal [facility] Comment on above: Performed By: #### Jairon HARMAN CMP, 3039-3 #### [facility] ([id number]) [address] [place] [address] 66922 Eosinophils (Bld) [#/Vol] 0.0 10*3/uL Normal 0.0-0.4 [facility] Comment on above: Performed By: #### Jairon HARMAN CMP, 3039-3 #### [facility] ([id number]) [address] [place] [address] 55228 Eosinophils/100 WBC (Bld) 0.3 % Normal [facility] Comment on above: Performed By: #### Jairon HARMAN CMP, 3039-3 #### [facility] ([id number]) [address] [place] [address] [place] [address] Erythrocyte distribution width (RBC) [Ratio] 15.3 % High 11.5-15.0 [facility] Comment on above: Performed By: #### Jairon HARMAN CMP, 3039-3 #### [facility] ([id number]) [address] [place] [address] 06868 Hematocrit (Bld) [Volume fraction] 38.5 % Normal 35-47 [facility] Comment on above: Performed By: #### Jairon HARMAN, CMP, 3039-3 #### [facility] ([id number]) [address] [place] [address] 69329 Hemoglobin (Bld) [Mass/Vol] 12.8 g/dL Normal 11.7-15.5 [facility] Comment on above: Performed By: #### Jairon HARMAN CMP, 3039-08 #### [facility] ([id number]) [address] [place] [address] 97962 Lymphocytes (Bld) [#/Vol] 1.1 10*3/uL Normal 1.0-3.5 [facility] Comment on above: Performed By: #### Jairon HARMAN, CMP, 3039-08 #### [facility] ([id number]) [address] [place] [address] 14774 Lymphocytes/100 WBC (Bld) 9.9 % Normal [facility] Comment on above: Performed By: #### Jairon HARMAN CMP, 3039-08 #### [facility] ([id number]) [address] [place] [address] 34750 MCH (RBC) [Entitic mass] 27.7 pg Normal 27-34 [facility] Comment on above: Performed By: #### Jairon HARMAN, CMP, 3 #### [facility] ([id number]) [address] [place] [address] 80991 MCHC (RBC) [Mass/Vol] 33.2 g/dL Normal 32-36 [facility] Comment on above: Performed By: #### Jairon HARMAN, CMP, 3039-3 #### [facility] ([id number]) [address] [place] [address] 31649 MCV (RBC) [Entitic vol] 84 fL Normal 80-100 [facility] Comment on above: Performed By: #### Jairon HARMAN CMP, 3039-08 #### [facility] ([id number]) [address] [place] [address] 75122 Monocytes (Bld) [#/Vol] 0.7 10*3/uL Normal 0-0.9 [facility] Comment on above: Performed By: #### Jairon HARMAN CMP, 3039-08 #### [facility] ([id number]) [address] [place] [address] 52459 Monocytes/100 WBC (Bld) 6.2 % Normal [facility] Comment on above: Performed By: #### Jairon HARMAN CMP, 3039-08 #### [facility] ([id number]) [address] [place] [address] 44629 Neutrophils/100 WBC (Bld) 83.4 % Normal [facility] Comment on above: Performed By: #### Jarion HARMAN [facility], 3039-08 #### [facility] ([id number]) [address] [place] [address] 14084 Platelet mean volume (Bld) [Entitic vol] 9.7 fL Normal 7-12 [facility] Comment on above: Performed By: #### Jairon HARMAN CMP, 3039-08 #### [facility] ([id number]) [address] [place] [address] 05662 Platelets (Bld) [#/Vol] 177 10*3/uL Normal 150-450 [facility] Comment on above: Performed By: #### Jairon HARMAN CMP, 3039-08 #### [facility] ([id number]) [address] [place] [address] 82240 RBC COUNT 4.62 X10E12/L Normal 3.80-5.20 [facility] Comment on above: Performed By: #### C BCA, CMP, 0-3 #### [facility] ([id number]) [address] [place] [address] 95433 WBC (Bld) [#/Vol] 11.3 10*3/uL High 4.0-11.0 [facility] Comment on above: Performed By: #### C BCA, CMP, 3039-3 #### [facility] ([id number]) [address] [place] [address] 65331 COMPREHENSIVE METABOLIC PANE Bill 04-12-2024 Albumin [Mass/Vol] 4.8 g/dL Normal 3.2-5.[address] [facility] Comment on above: Performed By: #### C BCA, CMP, 3039-3 #### [facility] ([id number]) [address] [place] [address] 65059 ALP [Catalytic activity/Vol] 51 U/L Normal 39-130 [facility] Comment on above: Performed By: #### C BCA, CMP, 3039-3 #### [facility] ([id number]) [address] [place] [address] 74953 ALT [Catalytic activity/Vol] 14 U/L Normal 0-31 [facility] Comment on above: Performed By: #### C BCA, CMP, 3039-3 #### [facility] ([id number]) [address] [place] [address] 78318 Anion gap [Moles/Vol] 7 mmol/L Normal 5-15 [facility] Comment on above: Performed By: #### C BCA, CMP, 3039-3 #### [facility] ([id number]) [address] [place] [address] 08094 AST [Catalytic activity/Vol] 21 U/L Normal 0-41 [facility] Comment on above: Performed By: #### C BCA, CMP, 3039-3 #### [facility] ([id number]) [address] [place] [address] 95624 Bilirubin [Mass/Vol] 0.4 mg/dL Normal 0.3-1.2 [facility] Comment on above: Performed By: #### C CANDACE HARMAN, 3039-3 #### [facility] ([id number]) [address] [place] [address] 07812 Calcium [Mass/Vol] 9.0 mg/dL Normal 8.5-10.[address] [facility] Comment on above: Performed By: #### C CANDACE HARMAN, 3 #### [facility] ([id number]) [address] [place] [address] 94134 Chloride [Moles/Vol] 103 mmol/L Normal 98-109 [facility] Comment on above: Performed By: #### Jairon HARMAN CMP, 3 #### [facility] ([id number]) [address] [place] [address] 95115 CO2 [Moles/Vol] 24 mmol/L Normal 22-32 [facility] Comment on above: Performed By: #### C CANDACE HARMAN, 3 #### [facility] ([id number]) [address] [place] [address] 27502 Creatinine [Mass/Vol] 0.79 mg/dL Normal 0.40-1.00 [facility] Comment on above: Result Comment: METH OD TRACEABLE TO IDMS STANDARD Performed By: #### C CANDACE HARMAN, 3039-3 #### [facility] ([id number]) [address] [place] [address] 40022 eGFR (CKD-EPI) NON-RACE DEPENDENT >90 Normal >59 [facility] Comment on above: Result Comment: Reported eGFR is based on the CKD-EPI 2020 equation that does not use a race coefficient. Performed By: #### C CANDACE HARMAN, 3039-3 #### [facility] ([id number]) [address] [place] [address] 03975 Glucose [Mass/Vol] 108 mg/dL High 65-[address] [facility] Comment on above: Performed By: #### C KIMANI CMP, 0-3 #### [facility] ([id number]) [address] [place] [address] 11470 Potassium [Moles/Vol] 4.0 mmol/L Normal 3.5-5.0 [facility] Comment on above: Performed By: #### C KIMANI [facility], 0-3 #### [facility] ([id number]) [address] [place] [address] 28606 Protein [Mass/Vol] 7.4 g/dL Normal 6.0-8.[address] [facility] Comment on above: Performed By: #### Jairon HARMAN [facility], 3039-3 #### [facility] ([id number]) [address] [place] [address] 12473 Sodium [Moles/Vol] 134 mmol/L Normal 134-[address] [facility] Comment on above: Performed By: #### Jairon HARMAN [facility], 3040-3 #### [facility] ([id number]) [address] [place] [address] 11182 Urea nitrogen [Mass/Vol] 13 mg/dL Normal 5-23 [facility] Comment on above: Performed By: #### Jairon HARMAN CMP, 3040-3 #### [facility] ([id number]) [address] [place] [address] ABDOMEN AND PELVIS W CONT on [...] Reyez MD on 04/12/2024 2:35 PM Normal [facility] HCG ( test) Ql (U)o n 04-12-2024 Beta HCG ( test) Ql (U) Negative Normal NEG [facility] Comment on above: Performed By: #### 2 106-3 #### [facility] ([id number]) [address] [place] [address] 42720 LIPASEon 04-12-2024 Lipase [Catalytic activity/Vol] 34 U/L Normal 17-40 [facility] Comment on above: Performed By: #### C BCA, CMP, 3040-3 #### [facility] ([id number]) [address] [place] [address] 70918 URN MACROSCOPIC NURon 2023 BILIRUBIN ROSA MARIA Negative Normal NEG [facility] Comment on above: Performed By: #### N UM #### [facility] ([id number]) [address] [place] [address] 72943 BLOOD/HGB ROSA MARIA MODERATE Abnormal NEG [facility] Comment on above: Performed By: #### N UM #### [facility] ([id number]) [address] [place] [address] 21327 GLUCOSE ROSA MARIA Negative Normal NEG [facility] Comment on above: Performed By: #### N UM #### [facility] ([id number]) [address] [place] [address], [place] [address] KETONES ROSA MARIA Negative Normal NEG [facility] Comment on above: Performed By: #### N UM #### [facility] ([id number]) [address] [place] [address], [place] [address] LEUKOCYTE ESTERASE ROSA MARIA Negative Normal NEG [facility] Comment on above: Performed By: #### N UM #### [facility] ([id number]) [address] [place] [address], [place] [address] NITRITE ROSA MARIA Negative Normal NEG [facility] Comment on above: Performed By: #### N UM #### [facility] ([id number]) [address] [place] [address] [place] [address] PH ROSA MARIA 5.5 Normal 5.0-8.5 [facility] Comment on above: Performed By: #### N UM #### [facility] ([id number]) [address] [place] [address], [place] [address] PROTEIN ROSA MARIA Negative Normal NEG [facility] Comment on above: Performed By: #### N UM #### [facility] ([id number]) [address] [place] [address], [place] [address] SPECIFIC GRAVITY ROSA MARIA 1.025 Normal 1.003-1.035 [facility] Comment on above: Performed By: #### N UM #### [facility] ([id number]) [address] [place] [address], [place] [address] UROBILINOGEN ROSA MARIA 0.2 eu/dL Normal <1.1 [facility] Comment on above: Performed By: #### N UM #### [facility] ([id number]) [address] [place] [address], [place] [address] CBC AND AUTO DIFFon 11-23-19 24 ABSOLUTE BASOPHIL 0.0 X10E9/L Normal 0.0-0.[address] [facility] Comment on above: Performed By: #### Jairon HARMAN CMP, 3039-08 #### [facility] ([id number]) [address] [place] [address] 90599 ABSOLUTE NEUTROPHIL 4.3 X10E9/L Normal 1.5-6.6 [facility] Comment on above: Performed By: #### Jairon HARMAN CMP, 3039-3 #### [facility] ([id number]) [address] [place] [address] 34795 Basophils/100 WBC (Bld) 0.7 % Normal [facility] Comment on above: Performed By: #### Jairon HARMAN CMP, 3039-08 #### [facility] ([id number]) [address] [place] [address] 36405 Eosinophils (Bld) [#/Vol] 0.1 10*3/uL Normal 0.0-0.4 [facility] Comment on above: Performed By: #### Jairon HARMAN CMP, 3039-08 #### [facility] ([id number]) [address] [place] [address] 71523 Eosinophils/100 WBC (Bld) 1.3 % Normal [facility] Comment on above: Performed By: #### Jairon HARMAN CMP, 3039-08 #### [facility] ([id number]) [address] [place] [address] 38176 Erythrocyte distribution width (RBC) [Ratio] 14.1 % Normal 11.5-15.0 [facility] Comment on above: Performed By: #### Jairon HARMAN CMP, 3 #### [facility] ([id number]) [address] [place] [address] 99751 Hematocrit (Bld) [Volume fraction] 35.1 % Normal 35-47 [facility] Comment on above: Performed By: #### Jairon HARMAN CMP, 3039-3 #### [facility] ([id number]) [address] [place] [address] 69917 Hemoglobin (Bld) [Mass/Vol] 12.4 g/dL Normal 11.7-15.5 [facility] Comment on above: Performed By: #### Jairon HARMAN CMP, 0-3 #### [facility] ([id number]) [address] [place] [address] 22226 Lymphocytes (Bld) [#/Vol] 1.1 10*3/uL Normal 1.0-3.5 [facility] Comment on above: Performed By: #### Jairon HARMAN CMP, 3 #### [facility] ([id number]) [address] [place] [address] 78170 Lymphocytes/100 WBC (Bld) 18.5 % Normal [facility] Comment on above: Performed By: #### Jairon HARMAN CMP, 3 #### [facility] ([id number]) [address] [place] [address] 75869 MCH (RBC) [Entitic mass] 29.7 pg Normal 27-34 [facility] Comment on above: Performed By: #### Jairon HARMAN CMP, 3 #### [facility] ([id number]) [address] [place] [address] 07401 MCHC (RBC) [Mass/Vol] 35.3 g/dL Normal 32-36 [facility] Comment on above: Performed By: #### Jairon HARMAN CMP, 3 #### [facility] ([id number]) [address] [place] [address] 02193 MCV (RBC) [Entitic vol] 84 fL Normal 80-100 [facility] Comment on above: Performed By: #### Jairon HARMAN CMP, 3039-3 #### [facility] ([id number]) [address] [place] [address] 78254 Monocytes (Bld) [#/Vol] 0.6 10*3/uL Normal 0-0.9 [facility] Comment on above: Performed By: #### Jairon HARMAN CMP, 3040-3 #### [facility] ([id number]) [address] [place] [address] 27909 Monocytes/100 WBC (Bld) 10.3 % Normal [facility] Comment on above: Performed By: #### Jairon HARMAN CMP, 3039-08 #### [facility] ([id number]) [address] [place] [address] 45088 Neutrophils/100 WBC (Bld) 69.2 % Normal [facility] Comment on above: Performed By: #### Jairon HARMAN CMP, 3039-08 #### [facility] ([id number]) [address] [place] [address] 14440 Platelet mean volume (Bld) [Entitic vol] 9.8 fL Normal 7-12 [facility] Comment on above: Performed By: #### Jairon HARMAN CMP, 3039-08 #### [facility] ([id number]) [address] [place] [address] 67114 Platelets (Bld) [#/Vol] 160 10*3/uL Normal 150-450 [facility] Comment on above: Performed By: #### Jairon HARMAN CMP, 3039-08 #### [facility] ([id number]) [address] [place] [address] 41373 RBC COUNT 4.17 X10E12/L Normal 3.80-5.20 [facility] Comment on above: Performed By: #### Jairon HARMAN CMP, 3039-08 #### [facility] ([id number]) [address] [place] [address] 68625 WBC (Bld) [#/Vol] 6.2 10*3/uL Normal 4.0-11.[address] [facility] Comment on above: Performed By: #### C BCA, CMP, 3039-3 #### [facility] ([id number]) [address] [place] [address] 97310 COMPREHENSIVE METABOLIC PANE Bill 11-23-2023 Albumin [Mass/Vol] 4.2 g/dL Normal 3.2-5.[address] [facility] Comment on above: Performed By: #### C BCA, CMP, 3039-3 #### [facility] ([id number]) [address] [place] [address] 53521 ALP [Catalytic activity/Vol] 50 U/L Normal 39-130 [facility] Comment on above: Performed By: #### C BCA, CMP, 3039-3 #### [facility] ([id number]) [address] [place] [address] 92940 ALT [Catalytic activity/Vol] 18 U/L Normal 0-31 [facility] Comment on above: Performed By: #### C BCA, CMP, 3039-3 #### [facility] ([id number]) [address] [place] [address] 69028 Anion gap [Moles/Vol] 5 mmol/L Normal 5-15 [facility] Comment on above: Performed By: #### Jairon BCA, CMP, 3039-3 #### [facility] ([id number]) [address] [place] [address] 77791 AST [Catalytic activity/Vol] 20 U/L Normal 0-41 [facility] Comment on above: Performed By: #### C BCA, CMP, 3039-3 #### [facility] ([id number]) [address] [place] [address] 80511 Bilirubin [Mass/Vol] 0.2 mg/dL Low 0.3-1.2 [facility] Comment on above: Performed By: #### C BCA, CMP, 3039-3 #### [facility] ([id number]) [address] [place] [address] 41275 Calcium [Mass/Vol] 8.8 mg/dL Normal 8.5-10.[address] [facility] Comment on above: Performed By: #### C CANDACE HARMAN, 3040-3 #### [facility] [facility] ([id number]) [address] [place] [address] Chloride [Moles/Vol] 104 mmol/L Normal 98-109 [facility] Comment on above: Performed By: #### C CANDACE HARMAN, 3039-3 #### [facility] ([id number]) [address] [place] [address] 45174 CO2 [Moles/Vol] 25 mmol/L Normal 22-32 [facility] Comment on above: Performed By: #### Jairon HARMAN CMP, 3039-3 #### [facility] ([id number]) [address] [place] [address] 27110 Creatinine [Mass/Vol] 0.63 mg/dL Normal 0.40-1.00 [facility] Comment on above: Result Comment: METH OD TRACEABLE TO IDMS STANDARD Performed By: #### C CANDACE HARMAN, 0-3 #### [facility] ([id number]) [address] [place] [address]7480 eGFR (CKD-EPI) NON-RACE DEPENDENT >90 Normal >59 [facility] Comment on above: Result Comment: Reported eGFR is based on the CKD-EPI 2021 equation that does not use a race coefficient. Performed By: #### C CANDACE HARMAN, 0-3 #### [facility] ([id number]) [address] [place] [address] 0[address]72 Glucose [Mass/Vol] 116 mg/dL High 65-[address] [facility] Comment on above: Performed By: #### C CANDACE HARMAN, 0-3 #### [facility] ([id number]) [address] [place] [address] 17676 Potassium [Moles/Vol] 3.8 mmol/L Normal 3.5-5.0 [facility] Comment on above: Performed By: #### C CANDACE HARMAN, 3040-3 #### [facility] ([id number]) [address] [place] [address] 31000 Protein [Mass/Vol] 6.7 g/dL Normal 6.0-8.[address] [facility] Comment on above: Performed By: #### C CANDACE HARMAN, 3039-3 #### [facility] ([id number]) [address] [place] [address] 83729 Sodium [Moles/Vol] 134 mmol/L Normal 134-[address] [facility] Comment on above: Performed By: #### Jairon HARMAN CMP, 3039-3 #### [facility] ([id number]) [address] [place] [address] 15474 Urea nitrogen [Mass/Vol] 10 mg/dL Normal 5-23 [facility] Comment on above: Performed By: #### C CANDACE HARMAN, 3039-3 #### [facility] ([id number]) [address] [place] [address] 85425 HCG ( test) Ql (U)o n 11-23-2023 Beta HCG ( test) Ql (U) Negative Normal NEG [facility] Comment on above: Performed By: #### 2 106-3 #### [facility] ([id number]) [address] [place] [address] 7[address] LIPASEon 11-23-2023 Lipase [Catalytic activity/Vol] 49 U/L High 17-40 [facility] Comment on above: Performed By: #### C KIMANI CMP, 0-3 #### [facility] ([id number]) [address] [place] [address] 74511 URN MACROSCOPIC NURon 2023 BILIRUBIN ROSA MARIA Negative Normal NEG [facility] Comment on above: Performed By: #### N UM #### [facility] ([id number]) [address] [place] [address] [place] [address] BLOOD/HGB ROSA MARIA Negative Normal NEG [facility] Comment on above: Performed By: #### N UM #### [facility] ([id number]) [address] [place] [address] [place] [address] GLUCOSE ROSA MARIA Negative Normal NEG [facility] Comment on above: Performed By: #### N UM #### [facility] ([id number]) [address] [place] [address] [place] [address] KETONES ROSA MARIA Negative Normal NEG [facility] Comment on above: Performed By: #### N UM #### [facility] ([id number]) [address] [place] [address] [place] [address] LEUKOCYTE ESTERASE ROSA MARIA Negative Normal NEG [facility] Comment on above: Performed By: #### N UM #### [facility] ([id number]) [address] [place] [address] [place] [address] NITRITE ROSA MARIA Negative Normal NEG [facility] Comment on above: Performed By: #### N UM #### [facility] ([id number]) [address] [place] [address] [place] [address] PH ROSA MARIA 7.0 Normal 5.0-8.5 [facility] Comment on above: Performed By: #### N UM #### [facility] ([id number]) [address] [place] [address] PROTEIN ROSA MARIA Negative Normal NEG [facility] Comment on above: Performed By: #### N UM #### [facility] ([id number]) [address] [place] [address] [place] [address] SPECIFIC GRAVITY ROSA MARIA 1.010 Normal 1.003-1.035 [facility] Comment on above: Performed By: #### N UM #### [facility] ([id number]) [address] [place] [address] 689[address] UROBILINOGEN ROSA MARIA 0.2 eu/dL Normal <1.1 [facility] Comment on above: Performed By: #### N UM #### [facility] ([id number]) [address] [place] [address] H PYLORI ANTIBODY IGGon 06-30 H. PYLORI IGG ABS 0.46 Index Value Normal 0.00-0.79 [facility] Comment on above: Result Comment: Nega tive <0.80 Equivocal 0.80 - 0.89 Positive >0.89 Performed By: #### H PYLLC #### [facility] [address] [place] [address] Dr. Donna Cornejo AMYLASEon 07-21-2022 Amylase [Catalytic activity/Vol] 83 U/L Normal 25-115 [facility] Comment on above: Performed By: #### A MY, CMP, LIPA, LIPID, T7, TSH #### [facility] [address] [place] [address] Dr. Donna Cornejo CBC AUTO DIFFon 07-21-2022 BASO # 0.0 103/ul Normal 0.0-0.1 [facility] Comment on above: Performed By: #### C BC #### [facility] [address] [place] [address] Dr. Donna Cornejo Basophils/100 WBC (Bld) 0.5 % Normal 0.2-2.0 [facility] Comment on above: Performed By: #### C BC #### [facility] [address] [place] [address] Dr. Donna Cornejo EO # 0.1 103/ul Normal 0.0-0.7 [facility] Comment on above: Performed By: #### C BC #### [facility] [address] [place] [address] Dr. Donna Cornejo Eosinophils/100 WBC (Bld) 1.7 % Normal 0.9-7.0 [facility] Comment on above: Performed By: #### C BC #### [facility] [address] [place] [address] Dr. Donna Cornejo Erythrocyte distribution width (RBC) [Ratio] 13.4 % Normal 11.0-15.0 [facility] Comment on above: Performed By: #### C BC #### [facility] [address] [place] [address] Dr. Donna Cornejo Hematocrit (Bld) [Volume fraction] 37.4 % Normal 36.0-48.0 [facility] Comment on above: Performed By: #### C BC #### [facility] [address] [place] [address] Dr. Donna Cornejo Hemoglobin (Bld) [Mass/Vol] 13.1 g/dL Normal 12.0-16.0 [facility] Comment on above: Performed By: #### C BC #### [facility] [address] [place] [address] Dr. Donna Cornejo IG # 0.01 10e3/ul Normal 0.00-0.03 [facility] Comment on above: Performed By: #### C BC #### [facility] [address] [place] [address] Dr. Donna Cornejo IG % 0.2 % Normal 0.0-0.5 [facility] Comment on above: Performed By: #### C BC #### [facility] [address] [place] [address] Dr. Donna Cornejo LYMPH # 2.5 103/ul Normal 1.2-3.8 [facility] Comment on above: Performed By: #### C BC #### [facility] [address] [place] [address] Dr. Donna Cornejo Lymphocytes/100 WBC (Bld) 41.8 % Normal 20.5-60.0 [facility] Comment on above: Performed By: #### C BC #### [facility] [address] [place] [address] Dr. Donna Cornejo MANUAL DIFF REQ NO Normal [facility] Comment on above: Performed By: #### C BC #### [facility] [address] [address] [address] Donna Cornejo MCH (RBC) [Entitic mass] 28.0 pg Normal 26.7-34.0 [facility] Comment on above: Performed By: #### C BC #### [facility] [address] [place] [address] Dr. Donna Cornejo MCHC (RBC) [Mass/Vol] 35.0 g/dL Normal 29.9-35.2 [facility] Comment on above: Performed By: #### C BC #### [facility] [address] [place] [address] Dr. Donna Cornejo MCV (RBC) [Entitic vol] 79.9 fL Critically low 81.0-99.0 [facility] Comment on above: Performed By: #### C BC #### [facility] [address] [place] [address] Dr. Donna Cornejo MONO # 0.5 103/ul Normal 0.3-0.8 [facility] Comment on above: Performed By: #### C BC #### [facility] [address] [place] [address] Dr. Donna Cornejo Monocytes/100 WBC (Bld) 8.5 % Normal 1.7-12.0 [facility] Comment on above: Performed By: #### C BC #### [facility] [address] [place] [address] Dr. Donna Cornejo NEUT # 2.8 103/ul Normal 1.4-6.5 [facility] Comment on above: Performed By: #### C BC #### [facility] [address] [place] [address] Dr. Donna Cornejo Neutrophils/100 WBC (Bld) 47.3 % Normal 43.0-75.0 [facility] Comment on above: Performed By: #### C BC #### [facility] [address] [place] [address] Dr. Donna Cornejo Platelet mean volume (Bld) [Entitic vol] 11.1 fL Normal 9.5-13.5 [facility] Comment on above: Performed By: #### C BC #### [facility] [address] [address] [address] Donna Cornejo PLT 187 103/ul Normal 150-450 [facility] Comment on above: Performed By: #### C BC #### [facility] [address] [address] [address] Donna Cornejo RBC 4.68 106/ul Normal 4.20-5.40 [facility] Comment on above: Performed By: #### C BC #### [facility] [address] [place] [address] Dr. Donna Cornejo WBC 6.0 103/ul Normal 4.0-11.0 [facility] Comment on above: Performed By: #### C BC #### [facility] [address] [place] [address] Dr. Donna Cornejo FREE THYROXINE INDEX T7on FTI 3.17 Normal 1.30-4.50 [facility] Comment on above: Performed By: #### A MY, CMP, LIPA, LIPID, T7, TSH #### [facility] [address] [place] [address] Dr. Donna Cornejo T3U 36.0 % Normal 30.0-39.0 [facility] Comment on above: Performed By: #### A MY, CMP, LIPA, LIPID, T7, TSH #### [facility] [address] [place] [address] Dr. Donna Cornejo T4 [Mass/Vol] 8.80 ug/dL Normal 4.80-13.90 [facility] Comment on above: Performed By: #### A MY, CMP, LIPA, LIPID, T7, TSH #### [facility] [address] [place] [address] Dr. Donna Cornejo GLYCOHEMOGLOBIN A1Con 2022 ADA RECOMMENDATION SEE BELOW Normal [facility] Comment on above: Result Comment: ADA RECOMMENDED LIMIT 4.0 - 6.0 ADA THERAPEUTIC TARGET < 7.0 ACTION SUGGESTED > 7.0 Performed By: #### A 1C #### [facility] [address] [address] [address] Donna Cornejo Glucose [Mass/Vol] 114 mg/dL Normal [facility] Comment on above: Performed By: #### A 1C #### [facility] [address] [address] [address] Donna Cornejo HbA1c (Bld) [Mass fraction] 5.6 % Normal 4.5-6.2 [facility] Comment on above: Performed By: #### A 1C #### [facility] [address] [address] [address] Donna Cornejo IRONon 07-21-2022 Iron [Mass/Vol] 55.0 ug/dL Normal 50.0-170.0 [facility] Comment on above: Performed By: #### I JENNA #### [facility] [address] [place] [address] Dr. Donna Cornejo LIPASEon 07-21-2022 Lipase [Catalytic activity/Vol] 181.0 U/L Normal 73.0-393.0 [facility] Comment on above: Performed By: #### A MY, CMP, LIPA, LIPID, T7, TSH #### [facility] [address] [place] [address] Dr. Donna Cornejo LIPID PROFILEon 07-21-2022 CHOL-HDL RATIO NORM SEE BELOW Normal [facility] Comment on above: Result Comment: 3.3 - 4.4 LOW RISK 4.4 - 7.1 AVERAGE RISK 7.1 - 11.0 MODERATE RISK >11.0 HIGH RISK Performed By: #### A MY, CMP, LIPA, LIPID, T7, TSH #### [facility] [address] [address] [address] Donna Cornejo Cholesterol [Mass/Vol] 138 mg/dL Normal <=200 [facility] Comment on above: Performed By: #### A MY, CMP, LIPA, LIPID, T7, TSH #### [facility] [address] [address] [address] Donna Cornejo Cholesterol in HDL [Mass/Vol] 53 mg/dL Normal 40-60 [facility] Comment on above: Performed By: #### A MY, CMP, LIPA, LIPID, T7, TSH #### [facility] [address] [address] [address] Donna Cornejo Cholesterol in LDL [Mass/Vol] 73.0 mg/dL Normal [facility] Comment on above: Performed By: #### A MY, CMP, LIPA, LIPID, T7, TSH #### [facility] [address] [address] [address] Donna Cornejo Cholesterol.total/ Cholesterol in HDL [Mass ratio] 2.6 {ratio} Normal [facility] Comment on above: Performed By: #### A MY, CMP, LIPA, LIPID, T7, TSH #### [facility] [address] [address] [address] Donna Cornejo HDL NORMAL > or = 60 mg/dl - LO W CARDIOVASCULAR RISK <40 mg/dl - HIGH CARDIOVASCULAR RISK Normal [facility] Comment on above: Performed By: #### A MY, CMP, LIPA, LIPID, T7, TSH #### [facility] [address] [address] [address] Donna Cornejo LDL CALC NORMAL SEE BELOW Normal [facility] Comment on above: Result Comment: <100 mg/dl OPTIMAL 100 - 129 mg/dl NEAR OR ABOVE OPTIMAL 130 - 159 mg/dl BORDERLINE HIGH 160 - 189 mg/dl HIGH >190 mg/dl VERY HIGH Performed By: #### A MY, CMP, LIPA, LIPID, T7, TSH #### [facility] [address] [address] [address] Donna Cornejo Triglyceride [Mass/Vol] 60 mg/dL Normal <=150 [facility] Comment on above: Performed By: #### A MY, CMP, LIPA, LIPID, T7, TSH #### [facility] [address] [address] [address] Donna Cornejo VLDL CALC 12.0 mg/dL Normal [facility] Comment on above: Performed By: #### A MY, CMP, LIPA, LIPID, T7, TSH #### [facility] [address] [address] [address] Donna Cornejo PROF 14(COMP METB)on 023 Albumin [Mass/Vol] 4.2 g/dL Normal 3.4-5.0 [facility] Comment on above: Performed By: #### A MY, CMP, LIPA, LIPID, T7, TSH #### [facility] [address] [place] [address] Dr. Donna Cornejo Albumin/Globulin [Mass ratio] 1.4 {ratio} Normal [facility] Comment on above: Performed By: #### A MY, CMP, LIPA, LIPID, T7, TSH #### [facility] [address] [address] [address] Donna Cornejo ALP [Catalytic activity/Vol] 57 U/L Normal 46-116 [facility] Comment on above: Performed By: #### A MY, CMP, LIPA, LIPID, T7, TSH #### [facility] [address] [place] [address] Dr. Donna Cornejo ALT [Catalytic activity/Vol] 16 U/L Normal 14-59 [facility] Comment on above: Performed By: #### A MY, CMP, LIPA, LIPID, T7, TSH #### [facility] [address] [place] [address] Dr. Donna Cornejo Anion gap [Moles/Vol] 15.5 mmol/L Normal [facility] Comment on above: Performed By: #### A MY, CMP, LIPA, LIPID, T7, TSH #### [facility] [address] [address] [address] Donna Cornejo AST [Catalytic activity/Vol] 17 U/L Normal 15-37 [facility] Comment on above: Performed By: #### A MY, CMP, LIPA, LIPID, T7, TSH #### [facility] [address] [address] [address] Donna Cornejo Bilirubin [Mass/Vol] 0.3 mg/dL Normal 0.2-1.0 [facility] Comment on above: Performed By: #### A MY, CMP, LIPA, LIPID, T7, TSH #### [facility] [address] [address] [address] Donna Cornejo Calcium [Mass/Vol] 9.5 mg/dL Normal 8.5-10.1 [facility] Comment on above: Performed By: #### A MY, CMP, LIPA, LIPID, T7, TSH #### [facility] [address] [address] [address] Donna Cornejo Chloride [Moles/Vol] 102 mmol/L Normal 98-107 [facility] Comment on above: Performed By: #### A MY, CMP, LIPA, LIPID, T7, TSH #### [facility] [address] [address] [address] Donna Cornejo CO2 [Moles/Vol] 24.7 mmol/L Normal 21.0-32.0 [facility] Comment on above: Performed By: #### A MY, CMP, LIPA, LIPID, T7, TSH #### [facility] [address] [address] [address] Donna Cornejo Creatinine [Mass/Vol] 0.76 mg/dL Normal 0.55-1.02 [facility] Comment on above: Performed By: #### A MY, CMP, LIPA, LIPID, T7, TSH #### [facility] [address] [address] [address] Donna Cornejo EGFR-AF MOSOTHO >60 Normal >=60 [facility] Comment on above: Performed By: #### A MY, CMP, LIPA, LIPID, T7, TSH #### [facility] [address] [address] [address] Donna Cornejo EGFR-NON AF [place] >60 Normal >=60 [facility] Comment on above: Performed By: #### A MY, CMP, LIPA, LIPID, T7, TSH #### [facility] [address] [address] [address] Donna Cornejo Globulin (S) [Mass/Vol] 3.0 g/dL Normal [facility] Comment on above: Performed By: #### A MY, CMP, LIPA, LIPID, T7, TSH #### [facility] [address] [address] [address] Donna Cornejo Glucose [Mass/Vol] 109 mg/dL Critically high 74-106 [facility] Comment on above: Performed By: #### A MY, CMP, LIPA, LIPID, T7, TSH #### [facility] [address] [place] [address] Dr. Donna Cornejo Potassium [Moles/Vol] 4.2 mmol/L Normal 3.5-5.1 [facility] Comment on above: Performed By: #### A MY, CMP, LIPA, LIPID, T7, TSH #### [facility] [address] [place] [address] Dr. Donna Cornejo Protein [Mass/Vol] 7.2 g/dL Normal 6.4-8.2 [facility] Comment on above: Performed By: #### A MY, CMP, LIPA, LIPID, T7, TSH #### [facility] [address] [place] [address] Dr. Donna Cornejo Sodium [Moles/Vol] 138 mmol/L Normal 136-145 [facility] Comment on above: Performed By: #### A MY, CMP, LIPA, LIPID, T7, TSH #### [facility] [address] [place] [address] Dr. Donna Cornejo Urea nitrogen [Mass/Vol] 11.0 mg/dL Normal 7.0-18.0 [facility] Comment on above: Performed By: #### A MY, CMP, LIPA, LIPID, T7, TSH #### [facility] [address] [place] [address] Dr. Donna Cornejo Urea nitrogen/Creatinin e [Mass ratio] 14.5 mg/mg Normal [facility] Comment on above: Performed By: #### A MY, CMP, LIPA, LIPID, T7, TSH #### [facility] [address] [place] [address] Dr. Donna Cornejo TSHon 07-21-2022 TSH 1.608 uIU/mL Normal 0.358-3.740 [facility] Comment on above: Performed By: #### A MY, CMP, LIPA, LIPID, T7, TSH #### [facility] [address] [place] [address] Dr. Donna Cornejo General Surgery Office/Clini c [...] low FODMAP diet; may need to see glove maker about possible food allergies; call with problems/questions. [...] inactivated - Not Given Patient Refuses Normal [facility] Comment on above: Result Comment: Elec [...] Postprandial abdominal bloating Seasonal allergic rhinitis Normal [facility] Pathology Noteon 08-25-2021 Pathology Note [id number]#[id number]:127 Normal [facility] Operative Reporton Operative Report [id number]#[id number]:127 Normal [facility] Consent for Procedure/Surger yon 08-07-2021 Consent for Procedure/Surgery [id number]#[id number]:127 Normal [facility] Ambulatory Visit Summaryon 0 08-06-2021 Ambulatory [...] disc disease Migraine Seasonal allergic rhinitis Normal [facility] Physician Referralon 022 Physician Referral [id number]#[id number]:127 Normal [facility] Vital Signs Date Time Vital Sign Value Performing Clinician Faci lity 06-27-2024 14:53-0500 Body mass index (BMI) [Ratio] 20.14 kg/m2 [facility]ene[facility]ipp[facility] 06-27-2024 14:53-0500 Body weight 54.88 kg Renea Phipps MD [facility] 06-27-2024 14:53-0500 Diastolic blood pressure 78 mm[Hg] Renea Phipps MD Work Phone: [facility] [employer] 06-27-2024 14:53-0500 Heart rate 87 /min [facility] 06-27-2024 14:53-0500 Systolic blood pressure 126 mm[Hg] Renea Phipps MD Work Phone: [facility] [employer] 06-22-2024 11:43-0500 Body temperature 98.1 [degF] Delfino Thomas DO [facility] 06-22-2024 11:43-0500 Diastolic blood pressure 64 mm[Hg] [facility]elfino [facility] 06-22-2024 11:43-0500 Heart rate 75 /min Delfino Thomas DO [facility] 06-22-2024 11:43-0500 Respiratory rate 18 /min Delfino Thomas DO [facility] 06-22-2024 11:43-0500 SaO2% (BldA) [Mass fraction] 98 % Delfino Thomas [facility] 06-22-2024 11:43-0500 Systolic blood pressure 109 mm[Hg] Delfino Thomas DO [facility] 06-22-2024 04:13-0500 Body height 165.1 cm Delfino Faustino GLOVER [facility] 06-22-2024 04:13-0500 Body mass index (BMI) [Ratio] 19.64 kg/m2 Delfino Thomas DO Work Phone: [facility] 06-22-2024 04:050 Body weight 53.52 kg Delfino Thomas DO Work Phone: [facility] Encounters Encounter Date Encounter Type Care Provider Facility Start: 08-01-2024 ambulatory [facility] Start: 07-14-2024 End: 07-14-2024 Office outpatient visit 15 minutes Jose Kim MD Work Phone: [facility] Comment on above: Neurogenic claudicat ion (Primary Dx) Start: 07-14-2024 End: 07-14-2024 ambulatory [facility] Start: 07-07-2024 End: 07-07-2024 ambulatory DELFINO Ye [facility] Start: 07-05-2024 End: [facility]-01-[facility]24 [facility] Start: 06-27-2024 End: 06-27-2024 Office outpatient new 45 minutes Renea Phipps MD Work Phone: [facility] Comment on above: Back pain; Atrophy of muscle of right thigh Start: 06-27-2024 End: 06-27-[facility] Start: 06-22-2024 End: 06-22-2024 ambulatory [facility] Start: 06-21-2024 End: 06-22-2024 Emergency department patient visit Yunior Thomas MD Work Phone: [facility] - Observation Unit Comment on above: Back pain (Primary D x); Atrophy of muscle of right thigh Start: 06-18-2024 End: 06-18-2024 Emergency department patient visit [facility] Start: 04-14-2024 End: 04-14-2024 ambulatory LEONIDAS JUDD [facility] Start: 04-12-2024 End: 04-12-2024 Emergency department patient visit FENG GREENBERG [facility] Start: 11-23-2023 End: 11-23-2023 Emergency department patient visit FENG GREENBERG [facility] Start: 07-23-2022 Encounter for genera l adult medical examination without abnormal findings DR FENG GREENBERG . [facility] Start: 07-21-2022 End: 07-22-2022 ambulatory [...] Td Vaccines (9 - Td or Tdap) [facility] Start: 06-27-2025 Adult BMI Screening Adult BMI Screen ing [facility] Start: 06-27-2025 Tobacco Screening Tobacco Screening [facility] Start: 07-14-2024 End: 07-14-2024 Patient encounter procedure 07/14/2024 2:10 PM EST Office Visit [facility] [place] [place] [address] Jose Kim MD [address], [address] [address] [facility] Start: 07-07-2024 End: 07-07-2024 Patient encounter procedure 07/07/2024 3:30 PM EST Appointment [facility] [address] [place] [address] Delfino Thomas, DO [address] [place] [address] [facility] Start: 07-05-2024 End: 07-05-2024 Patient encounter procedure 07/05/2024 10:45 AM EST Appointment [facility] Imaging [address] [place] [address] [facility] Start: 06-22-2024 End: 06-22-2025 US.doppler Lower extremity artery - bilateral Vas art duplex lwr bilateral Vascular Ultrasound Routine Back pain Atrophy of muscle of right thigh Expected: 06/22/2024, Expires: 06/22/2025 [employer] Work Phone: Comment on above: Expected: 06/22/2024 , Expires: 06/22/2025 Start: 02-28-2024 Influenza vaccination Influenza Vacc ine [facility] Start: 01-22-2012 Screening for malign ant neoplasm of cervix Pap Smear [facility] Start: 2003 Depression Screening Depression Scre ening [facility] Oxygen Therapy - Maintain SpO2: 90%; *PRACTICE REPRESENTATIVE Guidelines for O2: Yes; Document: \[email or web address]\epi c\EPIC_Reference\Orders\ Respiratory Care Guidelines\CPG Oxygen 2022.pdf Oxygen Therapy - Maintain SpO2: 90%; *PRACTICE REPRESENTATIVE Guidelines for O2: Yes; Document: \[email or web address]\ep ic\EPIC_Reference\Order s\Respiratory Care Guidelines\CPG Oxygen 2022.pdf Respiratory Care Routine As Needed until discontinued starting 06/22/2024 [employer] Work Phone: Comment on above: As Needed until disc ontinued starting 06/22/2024 Payers Date Payer Category Payer Medicaid [employer] [id number] 1991 Unknown [id number] 1991 Unknown [id number] [id number] 1991 Unknown [id number] [id number] 1991 Unknown [id number] [id number] 1991 Unknown [id number] [id number] 1991 Unknown [id number] [id number] 1991 Unknown [id number] [id number] 1991 Unknown [id number] [id number] 1991 Unknown [id number] [id number] 1991 Unknown [id number] [id number] 1991 Unknown [id number] [id number] 1991 Unknown [id number] [id number] 1991 Unknown [id number] [id number] 1991 Unknown [id number] [id number] 1991 Unknown [id number] [id number] 1958 Medicaid [id number] 1958 Unknown [id number] Social History Date Type Detail Facility Start: 11-23-2023 [facility] History of tobacco use Current smoker [facility] History of tobacco use Cigarette Smoker [facility] Start: 11-23-2023 Tobacco use and exposure Smokeless tobacco non-user [facility] Start: 06-21-2024 End: 07-14-2024 Alcoholic beverage intake Lifetime non-drinker (finding) [facility] Start: 08-09-2020 End: 06-22-2024 History of Social function [facility] Start: 08-09-2020 End: 06-22-2024 [facility] Utilities [facility] Has the [employer], [employer], [employer], or water company threatened to shut off services in your home in past 12Mo No [facility] Adolescent depressio n screening assessment 0 [facility] Start: 1991 Sex assigned at Not on file [facility] Start: 02-01-2015 Sex Female (finding) [facility] Clinical Notes 08-06-2021 to 07-14-2024 Jose Kim MD - 07/14/2024 2:10 PM ESTAssessment & Plan Note - Jose Kim MD - 07/14/2024 1:49 PM ESTAssessment & Plan Note - Jose Kmi MD - 07/14/2024 1:49 PM EST Note [...] Jose Kim MD, PRINCESS, RPVI, FSVS, FACS [facility] This note was created with the assistance of a speech recognition program. While intending to generate a timely document that accurately reflects the content of the visit, no guarantee can be provided that every grammatical or spelling mistake has been or will be identified or corrected. Thank you for your understanding. documented in this encounter [facility] 07-14-2024 Evaluation + Plan note Associated Problem(s): Neurogenic claudication No evidence of significant peripheral arterial disease. Recommend evaluation and management by neuro spine. She is planned to have procedure. [facility] 07-14-2024 Miscellaneous Notes Associated Problem(s): Neurogenic claudication No evidence of significant peripheral arterial disease. Recommend evaluation and management by neuro spine. She is planned to have procedure. documented in this encounter [facility] 06-27-2024 History of Presen t illness Narrative Images from the original note were not included. [facility] [address] [address] Subjective: Patient ID: Doug Gomez is a [...] Renea Phipps MD documented in this encounter [facility] 06-22-2024 Nurse Note Patient IV has been removed. Patient educated and has no questions or concerns. [facility] 06-22-2024 Nurse Note Patient IV has been removed. Patient educated and has no questions or concerns. documented in this encounter [facility] 06-22-2024 Plan of care note Problem: Pain Goal: Patient goal is pain score less than 4, able to rest, and participant in treatment plan as appropriate Description: INTERVENTIONS: 1. Encourage patient or legal senior patient account representative to report early pain and ask [...] per policy 9. Teach patient or legal senior patient account representative interventions for comforting Outcome: Adequate for [...] at the bedside 7. Instruct patient/ patient senior patient account representative about use of safety devices 8. Include patient/ patient senior patient account representative in decisions related to safety Outcome: [...] hygiene technique. 7. Identify and instruct patient/patient senior patient account representative in use of appropriate isolation precautions for identified infection/symptoms. 8. Provide and discuss with patient/patient senior patient account representative on educational MDRO sheet. 9. Encourage and monitor nutritional status daily and consult jewel oliving machine operator if indicated. 10. Implement neutropenic guidelines as needed. Outcome: Adequate for Discharge Problem: Knowledge Deficit Goal: Patient/patient senior patient account representative demonstrates understanding of disease process, treatment [...] Score of =/> 25 or indicated by [facility] Assessment Goal: Patient should be free from fall Description: Interventions: 1. [place] to environment 2. Hourly rounds addressing the [...] non-skid footwear 11. Teach patient and patient senior patient account representative to maintain environment for safety and [...] (cane, walker) within reach 19. Request patient senior patient account representative bring adaptive equipment/mobility aids from home or obtain and provide as needed 20. Consult pharmacy regarding effects of med's affecting mobility, cognition, and alternatives 21. Obtain physician order for PT if risk factors associated with mobility are present 22. Obtain physician order for OT as appropriate 23. Utilize diversional activities 24. Educate patient and patient senior patient account representative how to maintain a safe environment during visitation times (notify nurse prior to leaving bedside) 25. Consider appropriateness of medical or non-medical lab technician 26. Set up voiding schedule as appropriate [...] pt experiencing intermittent numbness/tingling in RLE. [facility] 06-22-2024 Miscellaneous Notes Problem: Pain Goal: Patient goal is pain score less than 4, able to rest, and participant in treatment plan as appropriate Description: INTERVENTIONS: 1. Encourage patient or legal senior patient account representative to report early pain and ask [...] per policy 9. Teach patient or legal senior patient account representative interventions for comforting Outcome: Adequate for [...] at the bedside 7. Instruct patient/ patient senior patient account representative about use of safety devices 8. Include patient/ patient senior patient account representative in decisions related to safety Outcome: [...] hygiene technique. 7. Identify and instruct patient/patient senior patient account representative in use of appropriate isolation precautions for identified infection/symptoms. 8. Provide and discuss with patient/patient senior patient account representative on educational MDRO sheet. 9. Encourage and monitor nutritional status daily and consult jewel oliving machine operator if indicated. 10. Implement neutropenic guidelines as needed. Outcome: Adequate for Discharge Problem: Knowledge Deficit Goal: Patient/patient senior patient account representative demonstrates understanding of disease process, treatment [...] Score of =/> 25 or indicated by [facility] Assessment Goal: Patient should be free from fall Description: Interventions: 1. [place] to environment 2. Hourly rounds addressing the [...] non-skid footwear 11. Teach patient and patient senior patient account representative to maintain environment for safety and [...] (cane, walker) within reach 19. Request patient senior patient account representative bring adaptive equipment/mobility aids from home or obtain and provide as needed 20. Consult pharmacy regarding effects of med's affecting mobility, cognition, and alternatives 21. Obtain physician order for PT if risk factors associated with mobility are present 22. Obtain physician order for OT as appropriate 23. Utilize diversional activities 24. Educate patient and patient senior patient account representative how to maintain a safe environment during visitation times (notify nurse prior to leaving bedside) 25. Consider appropriateness of medical or non-medical lab technician 26. Set up voiding schedule as appropriate [...] at the bedside 7. Instruct patient/ patient senior patient account representative about use of safety devices 8. Include patient/ patient senior patient account representative in decisions related to safety Outcome: Progressing Note: Evaluation of progress towards goal: Pt is free from falls. Bed is in lowest position and brakes are locked. Proper identification is used. Problem: Knowledge Deficit Goal: Patient/patient senior patient account representative demonstrates understanding of disease process, treatment [...] be free from fall Description: Interventions: 1. [place] to environment 2. Hourly rounds addressing the [...] non-skid footwear 11. Teach patient and patient senior patient account representative to maintain environment for safety and [...] (cane, walker) within reach 19. Request patient senior patient account representative bring adaptive equipment/mobility aids from home or obtain and provide as needed 20. Consult pharmacy regarding effects of med's affecting mobility, cognition, and alternatives 21. Obtain physician order for PT if risk factors associated with mobility are present 22. Obtain physician order for OT as appropriate 23. Utilize diversional activities 24. Educate patient and patient senior patient account representative how to maintain a safe environment during visitation times (notify nurse prior to leaving bedside) 25. Consider appropriateness of medical or non-medical lab technician 26. Set up voiding schedule as appropriate [...] Description: INTERVENTIONS: 1. Encourage patient or legal senior patient account representative to report early pain and ask [...] per policy 9. Teach patient or legal senior patient account representative interventions for comforting Outcome: Progressing Note: [...] at the bedside 7. Instruct patient/ patient senior patient account representative about use of safety devices 8. Include patient/ patient senior patient account representative in decisions related to safety Outcome: [...] hygiene technique. 7. Identify and instruct patient/patient senior patient account representative in use of appropriate isolation precautions for identified infection/symptoms. 8. Provide and discuss with patient/patient senior patient account representative on educational MDRO sheet. 9. Encourage and monitor nutritional status daily and consult jewel oliving machine operator if indicated. 10. Implement neutropenic guidelines as needed. Outcome: Progressing Note: Evaluation of progress towards goal: Problem: Moderate - High Risk Fall Score Description: Lawson Fall Score of =/> 25 or indicated by [facility] Assessment Goal: Patient should be free from fall Description: Interventions: 1. [place] to environment 2. Hourly rounds addressing the [...] non-skid footwear 11. Teach patient and patient senior patient account representative to maintain environment for safety and [...] (cane, walker) within reach 19. Request patient senior patient account representative bring adaptive equipment/mobility aids from home or obtain and provide as needed 20. Consult pharmacy regarding effects of med's affecting mobility, cognition, and alternatives 21. Obtain physician order for PT if risk factors associated with mobility are present 22. Obtain physician order for OT as appropriate 23. Utilize diversional activities 24. Educate patient and patient senior patient account representative how to maintain a safe environment during visitation times (notify nurse prior to leaving bedside) 25. Consider appropriateness of medical or non-medical lab technician 26. Set up voiding schedule as appropriate [...] progress towards goal: documented in this encounter [facility] 06-22-2024 Hospital course Narrative Images from the original note were not included. ED Observation Discharge Summary BRIEF OVERVIEW Admitting Provider: Delfino Thomas, Discharge Provider: CAMI JENSEN PA-C Primary Care Physician: FENG GREENBERG MD [phone] Observation Services End Date and Time: No [...] evaluation treatment. Patient was initially seen in [facility], transferred to [facility], and placed in ED observation for MRI/further evaluation. Patient currently is not having any color changes to her foot. Patient is feeling somewhat better, but continues to declined any significant pain treatment at this time. Patient had CT scan performed at [facility] that showed a bulging disc L5 [...] Scale Eyes 4. Verbal 5. Motor 6. Kyle Coma Total 15 Skin: Skin is warm [...] Your Medications These medications were sent to [facility]/pharmacy #[id number] AT [place] [address] gabapentin 300 mg capsule lidocaine 5 % [...] pursue inpatient stay. documented in this encounter [facility] 06-22-2024 Plan of care note Problem: [...] pt experiencing intermittent numbness/tingling in RLE. [facility] 06-22-2024 Plan of care note Problem: [...] at the bedside 7. Instruct patient/ patient senior patient account representative about use of safety devices 8. Include patient/ patient senior patient account representative in decisions related to safety Outcome: Progressing Note: Evaluation of progress towards goal: Pt is free from falls. Bed is in lowest position and brakes are locked. Proper identification is used. Problem: Knowledge Deficit Goal: Patient/patient senior patient account representative demonstrates understanding of disease process, treatment [...] be free from fall Description: Interventions: 1. [place] to environment 2. Hourly rounds addressing the [...] non-skid footwear 11. Teach patient and patient senior patient account representative to maintain environment for safety and [...] (cane, walker) within reach 19. Request patient senior patient account representative bring adaptive equipment/mobility aids from home or obtain and provide as needed 20. Consult pharmacy regarding effects of med's affecting mobility, cognition, and alternatives 21. Obtain physician order for PT if risk factors associated with mobility are present 22. Obtain physician order for OT as appropriate 23. Utilize diversional activities 24. Educate patient and patient senior patient account representative how to maintain a safe environment during visitation times (notify nurse prior to leaving bedside) 25. Consider appropriateness of medical or non-medical lab technician 26. Set up voiding schedule as appropriate (every 2 hours) Outcome: Progressing Note: Evaluation of progress towards goal: Pt educated on Fall Risk . Pt has non-slip socks on, 2 side rails up, up with assist. [facility] 06-22-2024 History and physical note Images from the original note were not included. ED Observation History and Physical Note PROVIDERS: Primary Care Physician: FENG GREENBERG MD [phone] Admitting Provider: Delfino Thomas [facility] START TIMES: ED Date: 06/22/2024 [...] evaluation treatment. Patient was initially seen in [facility], transferred to [facility], and placed in ED observation for MRI/further evaluation. Patient currently is not having any color changes to her foot. Patient is feeling somewhat better, but continues to declined any significant pain treatment at this time. Patient had CT scan performed at [facility] that showed a bulging disc L5 [...] The case was discussed with the following business operations consultant teams. Consulting Providers Provider Service Specialty [...] Code Status Information Code Status Full Code [facility] 06-22-2024 History and physical note Images from the original note were not included. ED Observation History and Physical Note PROVIDERS: Primary Care Physician: FENG GREENBERG MD [phone] Admitting Provider: Delfino Thomas DO CARE START [...] evaluation treatment. Patient was initially seen in [facility], transferred to [facility], and placed in ED observation for MRI/further evaluation. Patient currently is not having any color changes to her foot. Patient is feeling somewhat better, but continues to declined any significant pain treatment at this time. Patient had CT scan performed at [facility] that showed a bulging disc L5 [...] The case was discussed with the following business operations consultant teams. Consulting Providers Provider Service Specialty [...] Pain Patients Only: The ASCVD Risk score (Defiance DK, et al., 2019) failed to calculate [...] Status Full Code [facility] Plan of care note Problem: Pain Goal: Patient goal is pain score less than 4, able to rest, and participant in treatment plan as appropriate Description: INTERVENTIONS: 1. Encourage patient or legal senior patient account representative to report early pain and ask [...] per policy 9. Teach patient or legal senior patient account representative interventions for comforting Outcome: Progressing Note: [...] at the bedside 7. Instruct patient/ patient senior patient account representative about use of safety devices 8. Include patient/ patient senior patient account representative in decisions related to safety Outcome: [...] hygiene technique. 7. Identify and instruct patient/patient senior patient account representative in use of appropriate isolation precautions for identified infection/symptoms. 8. Provide and discuss with patient/patient senior patient account representative on educational MDRO sheet. 9. Encourage and monitor nutritional status daily and consult jewel oliving machine operator if indicated. 10. Implement neutropenic guidelines as needed. Outcome: Progressing Note: Evaluation of progress towards goal: Problem: Moderate - High Risk Fall Score Description: Lawson Fall Score of =/> 25 or indicated by [facility] Assessment Goal: Patient should be free from fall Description: Interventions: 1. [place] to environment 2. Hourly rounds addressing the [...] non-skid footwear 11. Teach patient and patient senior patient account representative to maintain environment for safety and [...] (cane, walker) within reach 19. Request patient senior patient account representative bring adaptive equipment/mobility aids from home or obtain and provide as needed 20. Consult pharmacy regarding effects of med's affecting mobility, cognition, and alternatives 21. Obtain physician order for PT if risk factors associated with mobility are present 22. Obtain physician order for OT as appropriate 23. Utilize diversional activities 24. Educate patient and patient senior patient account representative how to maintain a safe environment during visitation times (notify nurse prior to leaving bedside) 25. Consider appropriateness of medical or non-medical lab technician 26. Set up voiding schedule as appropriate [...] Progressing Note: Evaluation of progress towards goal: [facility] 06-22-2024 Emergency department Triage note Patient presented to [facility] ER due to losing muscle mass in her Rt buttock and RLE turning purple along with shaking. [facility] 06-22-2024 Emergency department Note Patient presented to [facility] ER due to losing muscle mass in her Rt buttock and RLE turning purple along with shaking. documented in this encounter [facility] 08-06-2021 Note Chief Complaint consultation for RUQ [...] adapter, 2 puf (more content not included)... [facility] Comment on above: Result Comment: Elec tronically Signed By: POPPY VALDEZ, Fred Jain\Date and Time Signed: 08/06/21 15:12 EST Evaluation note Diagnosis Back pain- Primary Unspecified backache Back pain Unspecified backache Atrophy of muscle of right thigh Muscle wasting Muscular wasting and disuse atrophy, not elsewhere classified Trouble walking Difficulty in walking [facility] Back pain Unspecified backache Atrophy of muscle of right thigh [facility] encounter [facility] Diagnosis Neurogenic claudication- Primary Spinal stenosis of lumbar region [facility] Attachments The following attachments cannot be sent through Care Everywhere. * Upper Back Pain Discharge Instructions (Italian) documented in this encounterPro[facility] SystemInstructionsNot on file documented in this encounterProKindred Healthcare SystemInstructionsNot on file [facility] Purpose Family History [...] section and content) DATE CREATED AUTHOR 09/15/2021 [facility] DATE CREATED AUTHOR AUTHOR'S ORGANIZ ATION 08/26/2022 [facility] DATE CREATED AUTHOR AUTHOR'S ORGANIZ ATION 06/23/2024 [facility] DATE CREATED AUTHOR AUTHOR'S ORGANIZ ATION 07/17/2024 [facility] DATE CREATED AUTHOR AUTHOR'S ORGANIZ ATION 08/10/2024 [facility] Reason for Visit (unrecogniz ed section [...] right thigh Delfino Thomas, DO [address] [place] [address] Phone: tel: fax: [facility] [address] [place] [address] Phone: tel:[phone] fax: Referral ID Status Reason Start Date Expiration Date Visits Requested Visits Authorized [id number] Pending Review Specialty Services Required 06/22/2025 1 [...] Care Teams (unrecognized sec tion and content) Digital Editor Relationship Specialty Start Date End Date Feng Greenberg MD PCP - General Family Medicine 04/12/24 Digital Editor Relationship Specialty Start Date End Date Feng Greenberg MD PCP - General Family Medicine 04/12/24 Digital Editor Relationship Specialty Start Date End Date Feng [...] BE BASED ON THE PRIMARY CLINICAL RECORDS. [employer] [facility]. provides no warranty or guarantee of the accuracy or completeness of information in this document.
== END 2024-11-11 09:56 | disposition home or self-care (01) ==
LOC: MRI 09:56
PROVIDERS: PCP Family Medicine
DX: Z47.89 Encounter for other orthopedic aftercare (principal); M43.26 Fusion of spine, lumbar region; G96.198 Other disorders of meninges, not elsewhere classified
CPT/HCPCS: 72148

== ENCOUNTER 2024-12-02 10:06 | Day surgery (SDC) | payer MEDICAID, SELFPAY ==
[2024-12-02] VITALS (39 sets, daily range): BP systolic 117–167; BP diastolic 59–107; PULSE 63–108; TEMP 36.1–36.8; O2SAT 90–100; BMI 23.5; BMI 22.9
--- NOTE | 2024-12-02 10:09 | XR_ITS ---
[address] [address] Patient Name: JARRELL WHITING MRN: [id number] date: 1990 Sex: F Assigned Patient [facility] Current Patient Location: [facility] Accession/Order Number: [id number] Exam Date: 12/02/2024 10:51 Report Date: 12/02/2024 10:52 At the request of: ZACHERY CLAIRE MD Procedure: XR chest 2V PA AND LATERAL CHEST: CLINICAL HISTORY: Preoperative clearance. History of vaping. COMPARISON: 08/02/2024 There is no focal parenchymal consolidation, effusion or pneumothorax. The cardiac, hilar and mediastinal silhouettes are within normal limits. There is no vascular congestion. The visualized bony thorax is intact. XR/XR chest 2V IMPRESSION: NO ACUTE CARDIOPULMONARY ABNORMALITY. Impression dictated by: Michaela Correia M.D. 12/02/2024 10:52 AM Dictation Location: [place] [address] Electronically authenticated by: [id number] Date: 12/02/2024 10:52
--- OUTSIDE RECORDS SUMMARY | 2024-12-02 10:29 | XMS_ITS | CCD ---
Author Organization [facility] Care Team Providers Care Gypsum Roofer Name Role Phone RENEE ., DR TNOEY Attending Unavailable HOY ., DR TONEY Admitting Unavailable HOY ., DR TONEY Primary Care Unavailable HOY ., DR TONEY Consulting Unavailable HOY ., DR TONEY Admitting Unavailable HOY ., DR TONEY Primary Care Unavailable HOY ., DR TONEY Consulting Unavailable HOY ., DR TONEY Attending Unavailable Terencey Feng VALDEZ Primary Care Provider [phone] HOY, FENG M Primary Care Unavailable YUNIOR [...] Acetaminophen / HYDROcodone Drug Allergy 11-28-[address] [facility] Repository (6 sources) Acetaminophen / HYDROcodone; Translations: [HYDROCODONE-ACETA MINOPHEN] Drug Allergy 05-10-2021 [facility] Medications Current Medications Medication Drug Class(es) Dates Sig (Normalized) Sig (Original) acetaminophen 325 mg oral tablet (1 source) Start: 06-22-2024 take 1 tablet by mouth every six hours as needed for headache 650 mg, oral, Every 6 hours PRN, headaches, temperature greater than 38.3 C, Starting on Thu06/22/24 at 0301 [id number] 200 actuat albuterol 0.09 mg/actuat metered dose [...] Johnson MD on 07/05/2024 11:07 AM Normal [facility] CREATININEon 06-22-2024 Creatinine [Mass/Vol] 0.72 mg/dL Normal 0.40-1.00 [facility] Comment on above: Result Comment: METH OD TRACEABLE TO IDIN STANDARD Performed By: #### H H, PLTCT, JAVA WEB APPLICATION DEVELOPER #### [facility] ([id number]) [address], [address] [place] [address] eGFR (CKD-EPI) NON-RACE DEPENDENT >90 Normal >59 [facility] Comment on above: Result Comment: Reported eGFR is based on the CKD-EPI 2020 equation that does not use a race coefficient. Performed By: #### H H, PLTCT, JAVA WEB APPLICATION DEVELOPER #### [facility] ([id number]) [address], [address] [place] [address] Creatinine includes GFR, ser umon 06-22-2024 Creatinine [Mass/Vol] 0.72 mg/dL 0.40 - 1.00 mg/dL [facility] Comment on above: METHOD TRACEABLE TO IDMS STANDARD eGFR (CKD-EPI)non-race dependent - PINF [facility] Comment on above: Reported eGFR is based on the CKD-EPI 2020 equation that does not use a race coefficient. [facility] HGB AND HCTon 06-22-2024 Hematocrit (Bld) [Volume fraction] 33.3 % Low 35-47 [facility] Comment on above: Performed By: #### H H, PLTCT, JAVA WEB APPLICATION DEVELOPER #### [facility] ([id number]) [address], [address] [place] [address] Hemoglobin (Bld) [Mass/Vol] 11.3 g/dL Low 11.7-15.5 [facility] Comment on above: Performed By: #### H H, PLTCT, JAVA WEB APPLICATION DEVELOPER #### [facility] ([id number]) [address], [address] [place] [address] Hemoglobin and hematocrit, b loodon 06-22-2024 Hematocrit (Bld) [Volume fraction] 33.3 % Low 35 - 47 % [facility] Hemoglobin (Bld) [Mass/Vol] 11.3 g/dL Low 11.7 - 15.5 g/dL [facility] Interpretation and review of laboratory results Abnormal [facility] MR LUMBAR SPINE WO CONTon MR [...] Suhas Kelly MD on 06/22/2024 7:18 AM [facility] MR Lumbar spine WO contrasto n 06-22-2024 [...] Suhas Kelly MD on 06/22/2024 7:18 AM [facility] Suhas Kelly MD - 06/22/2024 [...] Suhas Kelly MD on 06/22/2024 7:18 AM [facility] Radiology Study observation (narrative) [facility] MR Lumbar spine WO contrastO rdered By: Suhas Kelly on 06-22-2024 [facility] Work Phone: No Panel Informationon 06-22 [facility] PLATELET COUNT AND MPVon Platelet mean volume (Bld) [Entitic vol] 11.3 fL Normal 7-12 [facility] Comment on above: Performed By: #### H H, PLTCT, JAVA WEB APPLICATION DEVELOPER #### [facility] ([id number]) [address], [address] [place] [address] Platelets (Bld) [#/Vol] 180 10*3/uL Normal 150-450 [facility] Comment on above: Performed By: #### H H, PLTCT, JAVA WEB APPLICATION DEVELOPER #### [facility] ([id number]) [address] [place] [address] Platelet counton 06-22-2024 Platelet mean volume (Bld) [Entitic vol] 11.3 fL 7 - 12 fL [facility] Platelets (Bld) [#/Vol] 180 10*3/uL [facility] CT HIP RT WO CONTon 06-21-20 [...] Ralph MD on 06/21/2024 9:59 PM Normal [facility] CT LUMBAR SPINE WO CONTon CT [...] Burleson MD on 06/21/2024 10:04 PM Normal [facility] XR HIP RT 2-3 VIEWS W [...] Solorzano MD on 06/18/2024 4:37 AM Normal [facility] XR SPINE LUMBAR 2 OR 3 [...] Solorzano MD on 06/18/2024 4:37 AM Normal [facility] GI PANELon 04-14-2024 Gastrointestinal pathogens DNA [...] SAPOVIRUS Not detected (qualifier value) Normal NDET [facility] Comment on above: Performed By: #### C KIMANI CMP, 3039-3 #### [facility] ([id number]) [address] [place] [address] 31871 CBC AND AUTO DIFFon 10-15-20 24 ABSOLUTE BASOPHIL 0.0 X10E9/L Normal 0.0-0.2 [facility] Comment on above: Performed By: #### Jairon HARMAN CMP, 3039-3 #### [facility] ([id number]) [address] [place] [address] 05673 ABSOLUTE NEUTROPHIL 9.5 X10E9/L High 1.5-6.6 [facility] Comment on above: Performed By: #### Jairon HARMAN CMP, 3 #### [facility] ([id number]) [address] [place] [address] 01002 Basophils/100 WBC (Bld) 0.2 % Normal [facility] Comment on above: Performed By: #### Jairon HARMAN CMP, 3039-3 #### [facility] ([id number]) [address] [place] [address] 26214 Eosinophils (Bld) [#/Vol] 0.0 10*3/uL Normal 0.0-0.4 [facility] Comment on above: Performed By: #### Jairon HARMAN CMP, 3039-3 #### [facility] ([id number]) [address] [place] [address] 76872 Eosinophils/100 WBC (Bld) 0.3 % Normal [facility] Comment on above: Performed By: #### Jairon HARMAN CMP, 3039-3 #### [facility] ([id number]) [address] [place] [address] [place] [address] Erythrocyte distribution width (RBC) [Ratio] 15.3 % High 11.5-15.0 [facility] Comment on above: Performed By: #### Jairon HARMAN CMP, 3039-3 #### [facility] ([id number]) [address] [place] [address] 90926 Hematocrit (Bld) [Volume fraction] 38.5 % Normal 35-47 [facility] Comment on above: Performed By: #### Jairon HARMAN, CMP, 3039-3 #### [facility] ([id number]) [address] [place] [address] 58895 Hemoglobin (Bld) [Mass/Vol] 12.8 g/dL Normal 11.7-15.5 [facility] Comment on above: Performed By: #### Jairon HARMAN CMP, 3039-08 #### [facility] ([id number]) [address] [place] [address] 87560 Lymphocytes (Bld) [#/Vol] 1.1 10*3/uL Normal 1.0-3.5 [facility] Comment on above: Performed By: #### Jairon HARMAN, CMP, 3039-08 #### [facility] ([id number]) [address] [place] [address] 84977 Lymphocytes/100 WBC (Bld) 9.9 % Normal [facility] Comment on above: Performed By: #### Jairon HARMAN CMP, 3039-08 #### [facility] ([id number]) [address] [place] [address] 53530 MCH (RBC) [Entitic mass] 27.7 pg Normal 27-34 [facility] Comment on above: Performed By: #### Jairon HARMAN, CMP, 3 #### [facility] ([id number]) [address] [place] [address] 32253 MCHC (RBC) [Mass/Vol] 33.2 g/dL Normal 32-36 [facility] Comment on above: Performed By: #### Jairon HARMAN, CMP, 3039-3 #### [facility] ([id number]) [address] [place] [address] 36368 MCV (RBC) [Entitic vol] 84 fL Normal 80-100 [facility] Comment on above: Performed By: #### Jairon HARMAN CMP, 3039-08 #### [facility] ([id number]) [address] [place] [address] 08006 Monocytes (Bld) [#/Vol] 0.7 10*3/uL Normal 0-0.9 [facility] Comment on above: Performed By: #### Jairon HARMAN CMP, 3039-08 #### [facility] ([id number]) [address] [place] [address] 61695 Monocytes/100 WBC (Bld) 6.2 % Normal [facility] Comment on above: Performed By: #### Jairon HARMAN CMP, 3039-08 #### [facility] ([id number]) [address] [place] [address] 02002 Neutrophils/100 WBC (Bld) 83.4 % Normal [facility] Comment on above: Performed By: #### Jairon HARMAN [facility], 3039-08 #### [facility] ([id number]) [address] [place] [address] 94172 Platelet mean volume (Bld) [Entitic vol] 9.7 fL Normal 7-12 [facility] Comment on above: Performed By: #### Jairon HARMAN CMP, 3039-08 #### [facility] ([id number]) [address] [place] [address] 04735 Platelets (Bld) [#/Vol] 177 10*3/uL Normal 150-450 [facility] Comment on above: Performed By: #### Jairon HARMAN CMP, 3039-08 #### [facility] ([id number]) [address] [place] [address] 17217 RBC COUNT 4.62 X10E12/L Normal 3.80-5.20 [facility] Comment on above: Performed By: #### C BCA, CMP, 0-3 #### [facility] ([id number]) [address] [place] [address] 55636 WBC (Bld) [#/Vol] 11.3 10*3/uL High 4.0-11.0 [facility] Comment on above: Performed By: #### C BCA, CMP, 3039-3 #### [facility] ([id number]) [address] [place] [address] 78357 COMPREHENSIVE METABOLIC PANE Bill 04-12-2024 Albumin [Mass/Vol] 4.8 g/dL Normal 3.2-5.3 [facility] Comment on above: Performed By: #### C BCA, CMP, 3039-3 #### [facility] ([id number]) [address] [place] [address] 82583 ALP [Catalytic activity/Vol] 51 U/L Normal 39-130 [facility] Comment on above: Performed By: #### C BCA, CMP, 3039-3 #### [facility] ([id number]) [address] [place] [address] 24850 ALT [Catalytic activity/Vol] 14 U/L Normal 0-31 [facility] Comment on above: Performed By: #### C BCA, CMP, 3039-3 #### [facility] ([id number]) [address] [place] [address] 24398 Anion gap [Moles/Vol] 7 mmol/L Normal 5-15 [facility] Comment on above: Performed By: #### C BCA, CMP, 3039-3 #### [facility] ([id number]) [address] [place] [address] 50162 AST [Catalytic activity/Vol] 21 U/L Normal 0-41 [facility] Comment on above: Performed By: #### C BCA, CMP, 3039-3 #### [facility] ([id number]) [address] [place] [address] 18149 Bilirubin [Mass/Vol] 0.4 mg/dL Normal 0.3-1.2 [facility] Comment on above: Performed By: #### C CANDACE HARMAN, 3039-3 #### [facility] ([id number]) [address] [place] [address] 61851 Calcium [Mass/Vol] 9.0 mg/dL Normal 8.5-10.5 [facility] Comment on above: Performed By: #### C CANDACE HARMAN, 3 #### [facility] ([id number]) [address] [place] [address] 66317 Chloride [Moles/Vol] 103 mmol/L Normal 98-109 [facility] Comment on above: Performed By: #### Jairon HARMAN CMP, 3 #### [facility] ([id number]) [address] [place] [address] 47900 CO2 [Moles/Vol] 24 mmol/L Normal 22-32 [facility] Comment on above: Performed By: #### C CANDACE HARMAN, 3 #### [facility] ([id number]) [address] [place] [address] 24251 Creatinine [Mass/Vol] 0.79 mg/dL Normal 0.40-1.00 [facility] Comment on above: Result Comment: METH OD TRACEABLE TO IDMS STANDARD Performed By: #### C CANDACE HARMAN, 3039-3 #### [facility] ([id number]) [address] [place] [address] 40380 eGFR (CKD-EPI) NON-RACE DEPENDENT >90 Normal >59 [facility] Comment on above: Result Comment: Reported eGFR is based on the CKD-EPI 2020 equation that does not use a race coefficient. Performed By: #### C CANDACE HARMAN, 3039-3 #### [facility] ([id number]) [address] [place] [address] 61558 Glucose [Mass/Vol] 108 mg/dL High 65-99 [facility] Comment on above: Performed By: #### C KIMANI CMP, 0-3 #### [facility] ([id number]) [address] [place] [address] 97537 Potassium [Moles/Vol] 4.0 mmol/L Normal 3.5-5.0 [facility] Comment on above: Performed By: #### C KIMANI [facility], 0-3 #### [facility] ([id number]) [address] [place] [address] 55873 Protein [Mass/Vol] 7.4 g/dL Normal 6.0-8.0 [facility] Comment on above: Performed By: #### Jairon HARMAN [facility], 3039-3 #### [facility] ([id number]) [address] [place] [address] 89164 Sodium [Moles/Vol] 134 mmol/L Normal 134-146 [facility] Comment on above: Performed By: #### Jairon HARMAN [facility], 3040-3 #### [facility] ([id number]) [address] [place] [address] 56520 Urea nitrogen [Mass/Vol] 13 mg/dL Normal 5-23 [facility] Comment on above: Performed By: #### Jairon HARMAN CMP, 3040-3 #### [facility] ([id number]) [address] [place] [address] ABDOMEN AND PELVIS W CONT on [...] Reyez MD on 04/12/2024 2:35 PM Normal [facility] HCG ( test) Ql (U)o n 04-12-2024 Beta HCG ( test) Ql (U) Negative Normal NEG [facility] Comment on above: Performed By: #### 2 106-3 #### [facility] ([id number]) [address] [place] [address] 83652 LIPASEon 04-12-2024 Lipase [Catalytic activity/Vol] 34 U/L Normal 17-40 [facility] Comment on above: Performed By: #### C BCA, CMP, 3040-3 #### [facility] ([id number]) [address] [place] [address] 27923 URN MACROSCOPIC NURon 2023 BILIRUBIN ROSA MARIA Negative Normal NEG [facility] Comment on above: Performed By: #### N UM #### [facility] ([id number]) [address] [place] [address] 39873 BLOOD/HGB ROSA MRAIA MODERATE Abnormal NEG [facility] Comment on above: Performed By: #### N UM #### [facility] ([id number]) [address] [place] [address] 37562 GLUCOSE ROSA MARIA Negative Normal NEG [facility] Comment on above: Performed By: #### N UM #### [facility] ([id number]) [address] [place] [address], [place] [address] KETONES ROSA MARIA Negative Normal NEG [facility] Comment on above: Performed By: #### N UM #### [facility] ([id number]) [address] [place] [address], [place] [address] LEUKOCYTE ESTERASE ROSA MARIA Negative Normal NEG [facility] Comment on above: Performed By: #### N UM #### [facility] ([id number]) [address] [place] [address], [place] [address] NITRITE ROSA MARIA Negative Normal NEG [facility] Comment on above: Performed By: #### N UM #### [facility] ([id number]) [address] [place] [address] [place] [address] PH ROSA MARIA 5.5 Normal 5.0-8.5 [facility] Comment on above: Performed By: #### N UM #### [facility] ([id number]) [address] [place] [address], [place] [address] PROTEIN ROSA MARIA Negative Normal NEG [facility] Comment on above: Performed By: #### N UM #### [facility] ([id number]) [address] [place] [address], [place] [address] SPECIFIC GRAVITY ROSA MARIA 1.025 Normal 1.003-1.035 [facility] Comment on above: Performed By: #### N UM #### [facility] ([id number]) [address] [place] [address], [place] [address] UROBILINOGEN ROSA MARIA 0.2 eu/dL Normal <1.1 [facility] Comment on above: Performed By: #### N UM #### [facility] ([id number]) [address] [place] [address], [place] [address] CBC AND AUTO DIFFon 11-23-19 24 ABSOLUTE BASOPHIL 0.0 X10E9/L Normal 0.0-0.2 [facility] Comment on above: Performed By: #### Jairon HARMAN CMP, 3039-08 #### [facility] ([id number]) [address] [place] [address] 99376 ABSOLUTE NEUTROPHIL 4.3 X10E9/L Normal 1.5-6.6 [facility] Comment on above: Performed By: #### Jairon HARMAN CMP, 3039-3 #### [facility] ([id number]) [address] [place] [address] 25135 Basophils/100 WBC (Bld) 0.7 % Normal [facility] Comment on above: Performed By: #### Jairon HARMAN CMP, 3039-08 #### [facility] ([id number]) [address] [place] [address] 56495 Eosinophils (Bld) [#/Vol] 0.1 10*3/uL Normal 0.0-0.4 [facility] Comment on above: Performed By: #### Jairon HARMAN CMP, 3039-08 #### [facility] ([id number]) [address] [place] [address] 68610 Eosinophils/100 WBC (Bld) 1.3 % Normal [facility] Comment on above: Performed By: #### Jairon HARMAN CMP, 3039-08 #### [facility] ([id number]) [address] [place] [address] 12620 Erythrocyte distribution width (RBC) [Ratio] 14.1 % Normal 11.5-15.0 [facility] Comment on above: Performed By: #### Jairon HARMAN CMP, 3 #### [facility] ([id number]) [address] [place] [address] 54292 Hematocrit (Bld) [Volume fraction] 35.1 % Normal 35-47 [facility] Comment on above: Performed By: #### Jairon HARMAN CMP, 3039-3 #### [facility] ([id number]) [address] [place] [address] 88786 Hemoglobin (Bld) [Mass/Vol] 12.4 g/dL Normal 11.7-15.5 [facility] Comment on above: Performed By: #### Jairon HARMAN CMP, 0-3 #### [facility] ([id number]) [address] [place] [address] 71756 Lymphocytes (Bld) [#/Vol] 1.1 10*3/uL Normal 1.0-3.5 [facility] Comment on above: Performed By: #### Jairon HARMAN CMP, 3 #### [facility] ([id number]) [address] [place] [address] 39788 Lymphocytes/100 WBC (Bld) 18.5 % Normal [facility] Comment on above: Performed By: #### Jairon HARMAN CMP, 3 #### [facility] ([id number]) [address] [place] [address] 38691 MCH (RBC) [Entitic mass] 29.7 pg Normal 27-34 [facility] Comment on above: Performed By: #### Jairon HARMAN CMP, 3 #### [facility] ([id number]) [address] [place] [address] 70649 MCHC (RBC) [Mass/Vol] 35.3 g/dL Normal 32-36 [facility] Comment on above: Performed By: #### Jairon HARMAN CMP, 3 #### [facility] ([id number]) [address] [place] [address] 67389 MCV (RBC) [Entitic vol] 84 fL Normal 80-100 [facility] Comment on above: Performed By: #### Jairon HARMAN CMP, 3039-3 #### [facility] ([id number]) [address] [place] [address] 56206 Monocytes (Bld) [#/Vol] 0.6 10*3/uL Normal 0-0.9 [facility] Comment on above: Performed By: #### Jairon HARMAN CMP, 3040-3 #### [facility] ([id number]) [address] [place] [address] 39025 Monocytes/100 WBC (Bld) 10.3 % Normal [facility] Comment on above: Performed By: #### Jairon HARMAN CMP, 3039-08 #### [facility] ([id number]) [address] [place] [address] 04334 Neutrophils/100 WBC (Bld) 69.2 % Normal [facility] Comment on above: Performed By: #### Jairon HARMAN CMP, 3039-08 #### [facility] ([id number]) [address] [place] [address] 60553 Platelet mean volume (Bld) [Entitic vol] 9.8 fL Normal 7-12 [facility] Comment on above: Performed By: #### Jairon HARMAN CMP, 3039-08 #### [facility] ([id number]) [address] [place] [address] 78695 Platelets (Bld) [#/Vol] 160 10*3/uL Normal 150-450 [facility] Comment on above: Performed By: #### Jairon HARMAN CMP, 3039-08 #### [facility] ([id number]) [address] [place] [address] 09968 RBC COUNT 4.17 X10E12/L Normal 3.80-5.20 [facility] Comment on above: Performed By: #### Jairon HARMAN CMP, 3039-08 #### [facility] ([id number]) [address] [place] [address] 03542 WBC (Bld) [#/Vol] 6.2 10*3/uL Normal 4.0-11.0 [facility] Comment on above: Performed By: #### C BCA, CMP, 3039-3 #### [facility] ([id number]) [address] [place] [address] 94846 COMPREHENSIVE METABOLIC PANE Bill 11-23-2023 Albumin [Mass/Vol] 4.2 g/dL Normal 3.2-5.3 [facility] Comment on above: Performed By: #### C BCA, CMP, 3039-3 #### [facility] ([id number]) [address] [place] [address] 05979 ALP [Catalytic activity/Vol] 50 U/L Normal 39-130 [facility] Comment on above: Performed By: #### C BCA, CMP, 3039-3 #### [facility] ([id number]) [address] [place] [address] 57682 ALT [Catalytic activity/Vol] 18 U/L Normal 0-31 [facility] Comment on above: Performed By: #### C BCA, CMP, 3039-3 #### [facility] ([id number]) [address] [place] [address] 70111 Anion gap [Moles/Vol] 5 mmol/L Normal 5-15 [facility] Comment on above: Performed By: #### Jairon BCA, CMP, 3039-3 #### [facility] ([id number]) [address] [place] [address] 61455 AST [Catalytic activity/Vol] 20 U/L Normal 0-41 [facility] Comment on above: Performed By: #### C BCA, CMP, 3039-3 #### [facility] ([id number]) [address] [place] [address] 58447 Bilirubin [Mass/Vol] 0.2 mg/dL Low 0.3-1.2 [facility] Comment on above: Performed By: #### C BCA, CMP, 3039-3 #### [facility] ([id number]) [address] [place] [address] 48163 Calcium [Mass/Vol] 8.8 mg/dL Normal 8.5-10.5 [facility] Comment on above: Performed By: #### C CANDACE HARMAN, 3040-3 #### [facility] ([id number]) [address] [place] [address] 02717 Chloride [Moles/Vol] 104 mmol/L Normal 98-109 [facility] Comment on above: Performed By: #### C CANDACE HARMAN, 3039-3 #### [facility] ([id number]) [address] [place] [address] 05783 CO2 [Moles/Vol] 25 mmol/L Normal 22-32 [facility] Comment on above: Performed By: #### Jairon HARMAN CMP, 3039-3 #### [facility] ([id number]) [address] [place] [address] 38083 Creatinine [Mass/Vol] 0.63 mg/dL Normal 0.40-1.00 [facility] Comment on above: Result Comment: METH OD TRACEABLE TO IDMS STANDARD Performed By: #### C CANDACE HARMAN, 0-3 #### [facility] ([id number]) [address] [place] [address] 67751 eGFR (CKD-EPI) NON-RACE DEPENDENT >90 Normal >59 [facility] Comment on above: Result Comment: Reported eGFR is based on the CKD-EPI 2021 equation that does not use a race coefficient. Performed By: #### C CANDACE HARMAN, 0-3 #### [facility] ([id number]) [address] [place] [address] 01383 Glucose [Mass/Vol] 116 mg/dL High 65-99 [facility] Comment on above: Performed By: #### C CANDACE HARMAN, 0-3 #### [facility] ([id number]) [address] [place] [address] 98395 Potassium [Moles/Vol] 3.8 mmol/L Normal 3.5-5.0 [facility] Comment on above: Performed By: #### C CANDACE HARMAN, 3040-3 #### [facility] ([id number]) [address] [place] [address] 00131 Protein [Mass/Vol] 6.7 g/dL Normal 6.0-8.0 [facility] Comment on above: Performed By: #### C CANDACE HARMAN, 3039-3 #### [facility] ([id number]) [address] [place] [address] 57214 Sodium [Moles/Vol] 134 mmol/L Normal 134-146 [facility] Comment on above: Performed By: #### Jairon HARMAN CMP, 3039-3 #### [facility] ([id number]) [address] [place] [address] 50421 Urea nitrogen [Mass/Vol] 10 mg/dL Normal 5-23 [facility] Comment on above: Performed By: #### C CANDACE HARMAN, 3039-3 #### [facility] ([id number]) [address] [place] [address] 00442 HCG ( test) Ql (U)o n 11-23-2023 Beta HCG ( test) Ql (U) Negative Normal NEG [facility] Comment on above: Performed By: #### 2 106-3 #### [facility] ([id number]) [address] [place] [address] 04071 LIPASEon 11-23-2023 Lipase [Catalytic activity/Vol] 49 U/L High 17-40 [facility] Comment on above: Performed By: #### C KIMANI CMP, 0-3 #### [facility] ([id number]) [address] [place] [id number] URN MACROSCOPIC NURon 2023 BILIRUBIN ROSA MARIA Negative Normal NEG [facility] Comment on above: Performed By: #### N UM #### [facility] ([id number]) [address] [place] [address] [place] [address] BLOOD/HGB ROSA MARIA Negative Normal NEG [facility] Comment on above: Performed By: #### N UM #### [facility] ([id number]) [address] [place] [address] [place] [address] GLUCOSE ROSA MARIA Negative Normal NEG [facility] Comment on above: Performed By: #### N UM #### [facility] ([id number]) [address] [place] [address] [place] [address] KETONES ROSA MARIA Negative Normal NEG [facility] Comment on above: Performed By: #### N UM #### [facility] ([id number]) [address] [place] [address] [place] [address] LEUKOCYTE ESTERASE ROSA MARIA Negative Normal NEG [facility] Comment on above: Performed By: #### N UM #### [facility] ([id number]) [address] [place] [address] [place] [address] NITRITE ROSA MARIA Negative Normal NEG [facility] Comment on above: Performed By: #### N UM #### [facility] ([id number]) [address] [place] [address] [place] [address] PH ROSA MARIA 7.0 Normal 5.0-8.5 [facility] Comment on above: Performed By: #### N UM #### [facility] ([id number]) [address] [place] [address] PROTEIN ROSA MARIA Negative Normal NEG [facility] Comment on above: Performed By: #### N UM #### [facility] ([id number]) [address] [place] [address] [place] [address] SPECIFIC GRAVITY ROSA MARIA 1.010 Normal 1.003-1.035 [facility] Comment on above: Performed By: #### N UM #### [facility] ([id number]) [address] [place] [address] UROBILINOGEN ROSA MARIA 0.2 eu/dL Normal <1.1 [facility] Comment on above: Performed By: #### N UM #### [facility] ([id number]) [address] [place] [address] H PYLORI ANTIBODY IGGon 06-30 H. PYLORI IGG ABS 0.46 Index Value Normal 0.00-0.79 [facility] Comment on above: Result Comment: Nega tive <0.80 Equivocal 0.80 - 0.89 Positive >0.89 Performed By: #### H PYLLC #### [facility] [address] [place] [address] Dr. Donna Cornejo AMYLASEon 07-21-2022 Amylase [Catalytic activity/Vol] 83 U/L Normal 25-115 [facility] Comment on above: Performed By: #### A MY, CMP, LIPA, LIPID, T7, TSH #### [facility] [address] [place] [address] Dr. Donna Cornejo CBC AUTO DIFFon 07-21-2022 BASO # 0.0 103/ul Normal 0.0-0.1 [facility] Comment on above: Performed By: #### C BC #### [facility] [address] [place] [address] Dr. Donna Cornejo Basophils/100 WBC (Bld) 0.5 % Normal 0.2-2.0 [facility] Comment on above: Performed By: #### C BC #### [facility] [address] [place] [address] Dr. Donna Cornejo EO # 0.1 103/ul Normal 0.0-0.7 [facility] Comment on above: Performed By: #### C BC #### [facility] [address] [place] [address] Dr. Donna Cornejo Eosinophils/100 WBC (Bld) 1.7 % Normal 0.9-7.0 [facility] Comment on above: Performed By: #### C BC #### [facility] [address] [place] [address] Dr. Donna Cornejo Erythrocyte distribution width (RBC) [Ratio] 13.4 % Normal 11.0-15.0 [facility] Comment on above: Performed By: #### C BC #### [facility] [address] [place] [address] Dr. Donna Cornejo Hematocrit (Bld) [Volume fraction] 37.4 % Normal 36.0-48.0 [facility] Comment on above: Performed By: #### C BC #### [facility] [address] [place] [address] Dr. Donna Cornejo Hemoglobin (Bld) [Mass/Vol] 13.1 g/dL Normal 12.0-16.0 [facility] Comment on above: Performed By: #### C BC #### [facility] [address] [place] [address] Dr. Donna Cornejo IG # 0.01 10e3/ul Normal 0.00-0.03 [facility] Comment on above: Performed By: #### C BC #### [facility] [address] [place] [address] Dr. Donna Cornejo IG % 0.2 % Normal 0.0-0.5 [facility] Comment on above: Performed By: #### C BC #### [facility] [address] [place] [address] Dr. Donna Cornejo LYMPH # 2.5 103/ul Normal 1.2-3.8 [facility] Comment on above: Performed By: #### C BC #### [facility] [address] [place] [address] Dr. Donna Cornejo Lymphocytes/100 WBC (Bld) 41.8 % Normal 20.5-60.0 [facility] Comment on above: Performed By: #### C BC #### [facility] [address] [place] [address] Dr. Donna Cornejo MANUAL DIFF REQ NO Normal [facility] Comment on above: Performed By: #### C BC #### [facility] [address] [address] [address] Donna Cornejo MCH (RBC) [Entitic mass] 28.0 pg Normal 26.7-34.0 [facility] Comment on above: Performed By: #### C BC #### [facility] [address] [place] [address] Dr. Donna Cornejo MCHC (RBC) [Mass/Vol] 35.0 g/dL Normal 29.9-35.[address] [facility] Comment on above: Performed By: #### C BC #### [facility] [address] [place] [address] Dr. Donna Cornejo MCV (RBC) [Entitic vol] 79.9 fL Critically low 81.0-99.0 [facility] Comment on above: Performed By: #### C BC #### [facility] [address] [place] [address] Dr. Donna Cornejo MONO # 0.5 103/ul Normal 0.3-0.[address] [facility] Comment on above: Performed By: #### C BC #### [facility] [address] [place] [address] Dr. Donna Cornejo Monocytes/100 WBC (Bld) 8.5 % Normal 1.7-12.[address] [facility] Comment on above: Performed By: #### C BC #### [facility] [address] [place] [address] Dr. Donna Cornejo NEUT # 2.8 103/ul Normal 1.4-6.[address] [facility] Comment on above: Performed By: #### C BC #### [facility] [address] [place] [address] Dr. Donna Cornejo Neutrophils/100 WBC (Bld) 47.3 % Normal 43.0-75.[address] [facility] Comment on above: Performed By: #### C BC #### [facility] [address] [place] [address] Dr. Donna Cornejo Platelet mean volume (Bld) [Entitic vol] 11.1 fL Normal 9.5-13.[address] [facility] Comment on above: Performed By: #### C BC #### [facility] [address] [address] [address] Donna Cornejo PLT 187 103/ul Normal 150-[address] [facility] Comment on above: Performed By: #### C BC #### [facility] [address] [address] [address] Donna Cornejo RBC 4.68 106/ul Normal 4.20-5.40 [facility] Comment on above: Performed By: #### C BC #### [facility] [address] [place] [address] Dr. Donna Cornejo WBC 6.0 103/ul Normal 4.0-11.0 [facility] Comment on above: Performed By: #### C BC #### [facility] [address] [place] [address] Dr. Donna Cornejo FREE THYROXINE INDEX T7on FTI 3.17 Normal 1.30-4.50 [facility] Comment on above: Performed By: #### A MY, CMP, LIPA, LIPID, T7, TSH #### [facility] [address] [place] [address] Dr. Donna Cornejo T3U 36.0 % Normal 30.0-39.0 [facility] Comment on above: Performed By: #### A MY, CMP, LIPA, LIPID, T7, TSH #### [facility] [address] [place] [address] Dr. Donna Cornejo T4 [Mass/Vol] 8.80 ug/dL Normal 4.80-13.[address] [facility] Comment on above: Performed By: #### A MY, CMP, LIPA, LIPID, T7, TSH #### [facility] [address] [place] [address] Dr. Donna Cornejo GLYCOHEMOGLOBIN A1Con 2022 ADA RECOMMENDATION SEE BELOW Normal [facility] Comment on above: Result Comment: ADA RECOMMENDED LIMIT 4.0 - 6.0 ADA THERAPEUTIC TARGET < 7.0 ACTION SUGGESTED > 7.0 Performed By: #### A 1C #### [facility] [address] [address] [address] Donna Cornejo Glucose [Mass/Vol] 114 mg/dL Normal [facility] Comment on above: Performed By: #### A 1C #### [facility] [address] [address] [address] Donna Cornejo HbA1c (Bld) [Mass fraction] 5.6 % Normal 4.5-6.2 [facility] Comment on above: Performed By: #### A 1C #### [facility] [address] [address] [address] Donna Cornejo IRONon 07-21-2022 Iron [Mass/Vol] 55.0 ug/dL Normal 50.0-170.0 [facility] Comment on above: Performed By: #### I JENNA #### [facility] [address] [place] [address] Dr. Donna Cornejo LIPASEon 07-21-2022 Lipase [Catalytic activity/Vol] 181.0 U/L Normal 73.0-393.0 [facility] Comment on above: Performed By: #### A MY, CMP, LIPA, LIPID, T7, TSH #### [facility] [address] [place] [address] Dr. Donna Cornejo LIPID PROFILEon 07-21-2022 CHOL-HDL RATIO NORM SEE BELOW Normal [facility] Comment on above: Result Comment: 3.3 - 4.4 LOW RISK 4.4 - 7.1 AVERAGE RISK 7.1 - 11.0 MODERATE RISK >11.0 HIGH RISK Performed By: #### A MY, CMP, LIPA, LIPID, T7, TSH #### [facility] [address] [address] [address] Donna Cornejo Cholesterol [Mass/Vol] 138 mg/dL Normal <=[address] [facility] Comment on above: Performed By: #### A MY, CMP, LIPA, LIPID, T7, TSH #### [facility] [address] [address] [address] Donna Cornejo Cholesterol in HDL [Mass/Vol] 53 mg/dL Normal 40-[address] [facility] Comment on above: Performed By: #### A MY, CMP, LIPA, LIPID, T7, TSH #### [facility] [address] [address] [address] Donna Cornejo Cholesterol in LDL [Mass/Vol] 73.0 mg/dL Normal [facility] Comment on above: Performed By: #### A MY, CMP, LIPA, LIPID, T7, TSH #### [facility] [address] [address] [address] Donna Cornejo Cholesterol.total/ Cholesterol in HDL [Mass ratio] 2.6 {ratio} Normal [facility] Comment on above: Performed By: #### A MY, CMP, LIPA, LIPID, T7, TSH #### [facility] [address] [address] [address] Donna Cornejo HDL NORMAL > or = 60 mg/dl - LO W CARDIOVASCULAR RISK <40 mg/dl - HIGH CARDIOVASCULAR RISK Normal [facility] Comment on above: Performed By: #### A MY, CMP, LIPA, LIPID, T7, TSH #### [facility] [address] [address] [address] Donna Cornejo LDL CALC NORMAL SEE BELOW Normal [facility] Comment on above: Result Comment: <100 mg/dl OPTIMAL 100 - 129 mg/dl NEAR OR ABOVE OPTIMAL 130 - 159 mg/dl BORDERLINE HIGH 160 - 189 mg/dl HIGH >190 mg/dl VERY HIGH Performed By: #### A MY, CMP, LIPA, LIPID, T7, TSH #### [facility] [address] [address] [address] Donna Cornejo Triglyceride [Mass/Vol] 60 mg/dL Normal <=[address] [facility] Comment on above: Performed By: #### A MY, CMP, LIPA, LIPID, T7, TSH #### [facility] [address] [address] [address] Donna Cornejo VLDL CALC 12.0 mg/dL Normal [facility] Comment on above: Performed By: #### A MY, CMP, LIPA, LIPID, T7, TSH #### [facility] [address] [address] [address] Donna Cornejo PROF 14(COMP METB)on 023 Albumin [Mass/Vol] 4.2 g/dL Normal 3.4-5.0 [facility] Comment on above: Performed By: #### A MY, CMP, LIPA, LIPID, T7, TSH #### [facility] [address] [place] [address] Dr. Donna Cornejo Albumin/Globulin [Mass ratio] 1.4 {ratio} Normal [facility] Comment on above: Performed By: #### A MY, CMP, LIPA, LIPID, T7, TSH #### [facility] [address] [address] [address] Donna Cornejo ALP [Catalytic activity/Vol] 57 U/L Normal 46-116 [facility] Comment on above: Performed By: #### A MY, CMP, LIPA, LIPID, T7, TSH #### [facility] [address] [place] [address] Dr. Donna Cornejo ALT [Catalytic activity/Vol] 16 U/L Normal 14-59 [facility] Comment on above: Performed By: #### A MY, CMP, LIPA, LIPID, T7, TSH #### [facility] [address] [place] [address] Dr. Donna Cornejo Anion gap [Moles/Vol] 15.5 mmol/L Normal [facility] Comment on above: Performed By: #### A MY, CMP, LIPA, LIPID, T7, TSH #### [facility] [address] [address] [address] Donna Cornejo AST [Catalytic activity/Vol] 17 U/L Normal 15-37 [facility] Comment on above: Performed By: #### A MY, CMP, LIPA, LIPID, T7, TSH #### [facility] [address] [address] [address] Donna Cornejo Bilirubin [Mass/Vol] 0.3 mg/dL Normal 0.2-1.0 [facility] Comment on above: Performed By: #### A MY, CMP, LIPA, LIPID, T7, TSH #### [facility] [address] [address] [address] Donna Cornejo Calcium [Mass/Vol] 9.5 mg/dL Normal 8.5-10.1 [facility] Comment on above: Performed By: #### A MY, CMP, LIPA, LIPID, T7, TSH #### [facility] [address] [address] [address] Donna Cornejo Chloride [Moles/Vol] 102 mmol/L Normal 98-107 [facility] Comment on above: Performed By: #### A MY, CMP, LIPA, LIPID, T7, TSH #### [facility] [address] [address] [address] Donna Cornejo CO2 [Moles/Vol] 24.7 mmol/L Normal 21.0-32.0 [facility] Comment on above: Performed By: #### A MY, CMP, LIPA, LIPID, T7, TSH #### [facility] [address] [address] [address] Donna Cornejo Creatinine [Mass/Vol] 0.76 mg/dL Normal 0.55-1.02 [facility] Comment on above: Performed By: #### A MY, CMP, LIPA, LIPID, T7, TSH #### [facility] [address] [address] [address] Donna Cornejo EGFR-AF INDONESIAN >60 Normal >=60 [facility] Comment on above: Performed By: #### A MY, CMP, LIPA, LIPID, T7, TSH #### [facility] [address] [address] [address] Donna Cornejo EGFR-NON AF INDONESIAN >60 Normal >=[address] [facility] Comment on above: Performed By: #### A MY, CMP, LIPA, LIPID, T7, TSH #### [facility] [address] [address] [address] Donna Cornejo Globulin (S) [Mass/Vol] 3.0 g/dL Normal [facility] Comment on above: Performed By: #### A MY, CMP, LIPA, LIPID, T7, TSH #### [facility] [address] [address] [address] Donna Cornejo Glucose [Mass/Vol] 109 mg/dL Critically high 74-106 [facility] Comment on above: Performed By: #### A MY, CMP, LIPA, LIPID, T7, TSH #### [facility] [address] [place] [address] Dr. Donna Cornejo Potassium [Moles/Vol] 4.2 mmol/L Normal 3.5-5.1 [facility] Comment on above: Performed By: #### A MY, CMP, LIPA, LIPID, T7, TSH #### [facility] [address] [place] [address] Dr. Donna Cornejo Protein [Mass/Vol] 7.2 g/dL Normal 6.4-8.2 [facility] Comment on above: Performed By: #### A MY, CMP, LIPA, LIPID, T7, TSH #### [facility] [address] [place] [address] Dr. Donna Cornejo Sodium [Moles/Vol] 138 mmol/L Normal 136-145 [facility] Comment on above: Performed By: #### A MY, CMP, LIPA, LIPID, T7, TSH #### [facility] [address] [place] [address] Dr. Donna Cornejo Urea nitrogen [Mass/Vol] 11.0 mg/dL Normal 7.0-18.0 [facility] Comment on above: Performed By: #### A MY, CMP, LIPA, LIPID, T7, TSH #### [facility] [address] [place] [address] Dr. Donna Cornejo Urea nitrogen/Creatinin e [Mass ratio] 14.5 mg/mg Normal [facility] Comment on above: Performed By: #### A MY, CMP, LIPA, LIPID, T7, TSH #### [facility] [address] [place] [address] Dr. Donna Cornejo TSHon 07-21-2022 TSH 1.608 uIU/mL Normal 0.358-3.[address] [facility] Comment on above: Performed By: #### A MY, CMP, LIPA, LIPID, T7, TSH #### [facility] [address] [place] [address] Dr. Donna Cornejo General Surgery Office/Clini c [...] low FODMAP diet; may need to see chemical dependency attendant about possible food allergies; call with problems/questions. [...] inactivated - Not Given Patient Refuses Normal [facility] Comment on above: Result Comment: Elec tronically [...] Postprandial abdominal bloating Seasonal allergic rhinitis Normal [facility] Pathology Noteon 08-25-2021 Pathology Note [id number]#1.00CD:127 Normal [facility] Operative Reporton Operative Report [id number]#1.00CD:127 Normal [facility] Consent for Procedure/Surger yon 08-07-2021 Consent for Procedure/Surgery [id number]#[id number]:127 Normal [facility] Ambulatory Visit Summaryon 0 08-06-2021 Ambulatory Visit [...] disc disease Migraine Seasonal allergic rhinitis Normal [facility] Physician Referralon 022 Physician Referral [id number]#1.00CD:127 Normal [facility] Vital Signs Date Time Vital Sign Value Performing Clinician Faci lity 06-27-2024 14:53-0500 Body mass index (BMI) [Ratio] 20.14 kg/m2 Renea Phipps MD Work Phone: [facility] 06-27-2024 14:53-0500 Body weight 54.88 kg Renea Phipps MD Work Phone: [facility] 06-27-2024 14:53-0500 Diastolic blood pressure 78 mm[Hg] Renea Phipps MD Work Phone: [facility] [employer] 06-27-2024 14:53-0500 Heart rate 87 /min Renea Phipps MD [facility] 06-27-2024 14:53-0500 Systolic blood pressure 126 mm[Hg] Renea Phipps MD Work Phone: [facility] [employer] 06-22-2024 11:43-0500 Body temperature 98.1 [degF] Delfino Thomas DO Work Phone: [facility] 06-22-2024 11:43-0500 Diastolic blood pressure 64 mm[Hg] Delfino Thomas DO [facility] 06-22-2024 11:43-0500 Heart rate 75 /min Delfino Thomas DO Work Phone: [facility] 06-22-2024 11:43-0500 Respiratory rate 18 /min Delfino Thomas DO Work Phone: [facility] 06-22-2024 11:43-0500 SaO2% (BldA) [Mass fraction] 98 % Delfino Thomas DO [facility] 06-22-2024 11:43-0500 Systolic blood pressure 109 mm[Hg] Delfino Thomas DO Work Phone: [facility] 06-22-2024 04:13-0500 Body height 165.1 cm Delfino Faustino GLOVER Work Phone: [facility] 06-22-2024 04:13-0500 Body mass index (BMI) [Ratio] 19.64 kg/m2 Delfino Thomas DO Work Phone: [facility] 06-22-2024 04:050 Body weight 53.52 kg Delfino Thomas DO Work Phone: [facility] Encounters Encounter Date Encounter Type Care Provider Facility Start: 08-01-2024 ambulatory [facility] Start: 07-14-2024 End: 07-14-2024 Office outpatient visit 15 minutes Jose Kim MD Work Phone: [facility] Comment on above: Neurogenic claudicat ion (Primary Dx) Start: 07-14-2024 End: 07-14-2024 ambulatory [facility] Octavio [facility] Start: 07-07-2024 End: 07-07-2024 ambulatory DELFINO Ye [facility] Start: 07-05-2024 End: [facility] 07-01-2024 ambulatory [facility] Start: 06-27-2024 End: 06-27-2024 Office outpatient new 45 minutes Renea Phipps MD Work Phone: [facility] Comment on above: Back pain; Atrophy of muscle of right thigh Start: 06-27-2024 End: 06-27-2024 [facility] Start: 06-22-2024 End: 06-22-2024 ambulatory [facility] Start: 06-21-2024 End: 06-22-2024 Emergency department patient visit Yunior Thomas MD Work Phone: [facility] Comment on above: Back pain (Primary D x); Atrophy of muscle of right thigh Start: 06-18-2024 End: 06-18-2024 Emergency department patient visit [facility] Start: 04-14-2024 End: 04-14-2024 ambulatory [facility] Start: 04-12-2024 End: 04-12-2024 Emergency department patient visit [facility] Start: 11-23-2023 End: 11-23-2023 Emergency department patient visit FENG GREENBER[facility] Start: 07-23-2022 Encounter for genera l adult medical examination without abnormal findings DR FENG GREENBERG . [facility] Start: 07-21-2022 End: 07-22-[address] [...] Td Vaccines (9 - Td or Tdap) [facility] Start: 06-27-2025 Adult BMI Screening Adult BMI Screen ing [facility] Start: 06-27-2025 Tobacco Screening Tobacco Screening [facility] Start: 07-14-2024 End: 07-14-2024 Patient encounter procedure 07/14/2024 2:10 PM EST Office Visit [facility] [place] [place] [address] Jose Kim MD [address], [address] [address] [facility] Start: 07-07-2024 End: 07-07-2024 Patient encounter procedure 07/07/2024 3:30 PM EST Appointment [facility] [address] [place] [address] Delfino Thomas, DO [address] [place] [address] [facility] Start: 07-05-2024 End: 07-05-2024 Patient encounter procedure 07/05/2024 10:45 AM EST Appointment [facility] [address] [place] [address] [facility] Start: 06-22-2024 End: 06-22-2025 US.doppler Lower extremity artery - bilateral Vas art duplex lwr bilateral Vascular Ultrasound Routine Back pain Atrophy of muscle of right thigh Expected: 06/22/2024, Expires: 06/22/2025 [employer] Work Phone: Comment on above: Expected: 06/22/2024 , Expires: 06/22/2025 Start: 02-28-2024 Influenza vaccination Influenza Vacc ine [facility] Start: 01-22-2012 Screening for malign ant neoplasm of cervix Pap Smear [facility] Start: 2003 Depression Screening Depression Scre ening [facility] Oxygen Therapy - Maintain SpO2: 90%; *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 1991 Unknown [id number] 1991 Unknown [id number] [id number] 1991 Unknown [id number] [id number] 1991 Unknown [id number] [id number] 1991 Unknown [id number] 2.16840.1.060912.3.579.2.1286 1991 Unknown [id number] [id number] 1991 Unknown [id number] 2.16840.1.702689.3.579.2.1286 1991 Unknown [id number] [id number] 1991 Unknown [id number] [id number] 1991 Unknown [id number] [id number] 1991 Unknown [id number] [id number] 1991 Unknown [id number] [id number] 1991 Unknown [id number] [id number]86 1991 Unknown [id number] [id number] 1991 Unknown [id number] [id number] 1958 Medicaid [id number] 1958 Unknown [id number] Social History Date Type Detail Facility [facility]: [facility]23 [facility] History of tobacco use Current smoker [facility] History of tobacco use Cigarette Smoker P [facility] Start: 11-23-2023 Tobacco use and exposure Smokeless tobacco non-user [facility] Start: 06-21-2024 End: 07-14-2024 Alcoholic beverage intake Lifetime non-drinker (finding) [facility] Start: 08-09-2020 End: 06-22-2024 History of Social function [facility] Start: 08-09-2020 End: 06-22-2024 [facility] Utilities [facility] Has the [employer], [employer], [employer], or water company threatened to shut off services in your home in past 12Mo No [facility] Adolescent depressio n screening assessment 0 [facility] Start: 1990 Sex assigned at Not on file P [facility] Start: 02-01-2015 Sex Female (finding) [facility] Clinical Notes 08-06-2021 to 07-14-2024 Jose [...] Jose Kim MD, PRINCESS, RPVI, FSVS, FACS [facility] This note was created with the assistance of a speech recognition program. While intending to generate a timely document that accurately reflects the content of the visit, no guarantee can be provided that every grammatical or spelling mistake has been or will be identified or corrected. Thank you for your understanding. documented in this encounter [facility] 07-14-2024 Evaluation + Plan note Associated Problem(s): Neurogenic claudication No evidence of significant peripheral arterial disease. Recommend evaluation and management by neuro spine. She is planned to have procedure. [facility] 07-14-2024 Miscellaneous Notes Associated Problem(s): Neurogenic claudication No evidence of significant peripheral arterial disease. Recommend evaluation and management by neuro spine. She is planned to have procedure. documented in this encounter [facility] 06-27-2024 History of Presen t illness Narrative Images from the original note were not included. [facility] [address] [address] Subjective: Patient ID: Doug Gomez is a [...] Renea Phipps MD documented in this encounter [facility] 06-22-2024 Nurse Note Patient IV has been removed. Patient educated and has no questions or concerns. [facility] 06-22-2024 Nurse Note Patient IV has been removed. Patient educated and has no questions or concerns. documented in this encounter [facility] 06-22-2024 Plan of care note Problem: Pain Goal: Patient goal is pain score less than 4, able to rest, and participant in treatment plan as appropriate Description: INTERVENTIONS: 1. Encourage patient or legal automobile sales representative to report early pain and [...] per policy 9. Teach patient or legal automobile sales representative interventions for comforting Outcome: Adequate [...] at the bedside 7. Instruct patient/ patient automobile sales representative about use of safety devices 8. Include patient/ patient automobile sales representative in decisions related to safety [...] hygiene technique. 7. Identify and instruct patient/patient automobile sales representative in use of appropriate isolation precautions for identified infection/symptoms. 8. Provide and discuss with patient/patient automobile sales representative on educational MDRO sheet. 9. Encourage and monitor nutritional status daily and consult pump installation and servicer if indicated. 10. Implement neutropenic guidelines as needed. Outcome: Adequate for Discharge Problem: Knowledge Deficit Goal: Patient/patient automobile sales representative demonstrates understanding of disease process, [...] Score of =/> 25 or indicated by [facility] Assessment Goal: Patient should be free from fall Description: Interventions: 1. [place] to environment 2. Hourly rounds addressing the [...] non-skid footwear 11. Teach patient and patient automobile sales representative to maintain environment for safety [...] (cane, walker) within reach 19. Request patient automobile sales representative bring adaptive equipment/mobility aids from home or obtain and provide as needed 20. Consult pharmacy regarding effects of med's affecting mobility, cognition, and alternatives 21. Obtain physician order for PT if risk factors associated with mobility are present 22. Obtain physician order for OT as appropriate 23. Utilize diversional activities 24. Educate patient and patient automobile sales representative how to maintain a safe environment during visitation times (notify nurse prior to leaving bedside) 25. Consider appropriateness of medical or non-medical transcription 26. Set up voiding schedule as appropriate [...] pt experiencing intermittent numbness/tingling in RLE. [facility] 06-22-2024 Miscellaneous Notes Problem: Pain Goal: Patient goal is pain score less than 4, able to rest, and participant in treatment plan as appropriate Description: INTERVENTIONS: 1. Encourage patient or legal automobile sales representative to report early pain and [...] per policy 9. Teach patient or legal automobile sales representative interventions for comforting Outcome: Adequate [...] at the bedside 7. Instruct patient/ patient automobile sales representative about use of safety devices 8. Include patient/ patient automobile sales representative in decisions related to safety [...] hygiene technique. 7. Identify and instruct patient/patient automobile sales representative in use of appropriate isolation precautions for identified infection/symptoms. 8. Provide and discuss with patient/patient automobile sales representative on educational MDRO sheet. 9. Encourage and monitor nutritional status daily and consult pump installation and servicer if indicated. 10. Implement neutropenic guidelines as needed. Outcome: Adequate for Discharge Problem: Knowledge Deficit Goal: Patient/patient automobile sales representative demonstrates understanding of disease process, [...] Score of =/> 25 or indicated by [facility] Assessment Goal: Patient should be free from fall Description: Interventions: 1. [place] to environment 2. Hourly rounds addressing the [...] non-skid footwear 11. Teach patient and patient automobile sales representative to maintain environment for safety [...] (cane, walker) within reach 19. Request patient automobile sales representative bring adaptive equipment/mobility aids from home or obtain and provide as needed 20. Consult pharmacy regarding effects of med's affecting mobility, cognition, and alternatives 21. Obtain physician order for PT if risk factors associated with mobility are present 22. Obtain physician order for OT as appropriate 23. Utilize diversional activities 24. Educate patient and patient automobile sales representative how to maintain a safe environment during visitation times (notify nurse prior to leaving bedside) 25. Consider appropriateness of medical or non-medical transcription 26. Set up voiding schedule as appropriate [...] at the bedside 7. Instruct patient/ patient automobile sales representative about use of safety devices 8. Include patient/ patient automobile sales representative in decisions related to safety Outcome: Progressing Note: Evaluation of progress towards goal: Pt is free from falls. Bed is in lowest position and brakes are locked. Proper identification is used. Problem: Knowledge Deficit Goal: Patient/patient automobile sales representative demonstrates understanding of disease process, [...] be free from fall Description: Interventions: 1. [place] to environment 2. Hourly rounds addressing the [...] non-skid footwear 11. Teach patient and patient automobile sales representative to maintain environment for safety [...] (cane, walker) within reach 19. Request patient automobile sales representative bring adaptive equipment/mobility aids from home or obtain and provide as needed 20. Consult pharmacy regarding effects of med's affecting mobility, cognition, and alternatives 21. Obtain physician order for PT if risk factors associated with mobility are present 22. Obtain physician order for OT as appropriate 23. Utilize diversional activities 24. Educate patient and patient automobile sales representative how to maintain a safe environment during visitation times (notify nurse prior to leaving bedside) 25. Consider appropriateness of medical or non-medical transcription 26. Set up voiding schedule as appropriate [...] Description: INTERVENTIONS: 1. Encourage patient or legal automobile sales representative to report early pain and [...] per policy 9. Teach patient or legal automobile sales representative interventions for comforting Outcome: Progressing [...] at the bedside 7. Instruct patient/ patient automobile sales representative about use of safety devices 8. Include patient/ patient automobile sales representative in decisions related to safety [...] hygiene technique. 7. Identify and instruct patient/patient automobile sales representative in use of appropriate isolation precautions for identified infection/symptoms. 8. Provide and discuss with patient/patient automobile sales representative on educational MDRO sheet. 9. Encourage and monitor nutritional status daily and consult pump installation and servicer if indicated. 10. Implement neutropenic guidelines as needed. Outcome: Progressing Note: Evaluation of progress towards goal: Problem: Moderate - High Risk Fall Score Description: Lawson Fall Score of =/> 25 or indicated by [facility] Assessment Goal: Patient should be free from fall Description: Interventions: 1. [place] to environment 2. Hourly rounds addressing the [...] non-skid footwear 11. Teach patient and patient automobile sales representative to maintain environment for safety [...] (cane, walker) within reach 19. Request patient automobile sales representative bring adaptive equipment/mobility aids from home or obtain and provide as needed 20. Consult pharmacy regarding effects of med's affecting mobility, cognition, and alternatives 21. Obtain physician order for PT if risk factors associated with mobility are present 22. Obtain physician order for OT as appropriate 23. Utilize diversional activities 24. Educate patient and patient automobile sales representative how to maintain a safe environment during visitation times (notify nurse prior to leaving bedside) 25. Consider appropriateness of medical or non-medical transcription 26. Set up voiding schedule as appropriate [...] progress towards goal: documented in this encounter [facility] 06-22-2024 Hospital course Narrative Images from the original note were not included. ED Observation Discharge Summary BRIEF OVERVIEW Admitting Provider: Delfino Thomas, Discharge Provider: CAMI JENSEN PA-C Primary Care Physician: FENG GREENBERG MD [phone] Observation Services End Date and Time: No [...] evaluation treatment. Patient was initially seen in [place] [facility], transferred to [facility], and placed in ED observation for MRI/further evaluation. Patient currently is not having any color changes to her foot. Patient is feeling somewhat better, but continues to declined any significant pain treatment at this time. Patient had CT scan performed at [facility] that showed a bulging disc [...] Your Medications These medications were sent to [facility]/pharmacy #[id number] AT [place] [address] gabapentin 300 mg capsule lidocaine 5 % [...] pursue inpatient stay. documented in this encounter [facility] 06-22-2024 Plan of care note Problem: [...] pt experiencing intermittent numbness/tingling in RLE. [facility] 06-22-2024 Plan of care note [...] at the bedside 7. Instruct patient/ patient automobile sales representative about use of safety devices 8. Include patient/ patient automobile sales representative in decisions related to safety Outcome: Progressing Note: Evaluation of progress towards goal: Pt is free from falls. Bed is in lowest position and brakes are locked. Proper identification is used. Problem: Knowledge Deficit Goal: Patient/patient automobile sales representative demonstrates understanding of disease process, [...] be free from fall Description: Interventions: 1. [place] to environment 2. Hourly rounds addressing the [...] non-skid footwear 11. Teach patient and patient automobile sales representative to maintain environment for safety [...] (cane, walker) within reach 19. Request patient automobile sales representative bring adaptive equipment/mobility aids from home or obtain and provide as needed 20. Consult pharmacy regarding effects of med's affecting mobility, cognition, and alternatives 21. Obtain physician order for PT if risk factors associated with mobility are present 22. Obtain physician order for OT as appropriate 23. Utilize diversional activities 24. Educate patient and patient automobile sales representative how to maintain a safe environment during visitation times (notify nurse prior to leaving bedside) 25. Consider appropriateness of medical or non-medical transcription 26. Set up voiding schedule as appropriate (every 2 hours) Outcome: Progressing Note: Evaluation of progress towards goal: Pt educated on Fall Risk . Pt has non-slip socks on, 2 side rails up, up with assist. [facility] 06-22-2024 History and physical note Images from the original note were not included. ED Observation History and Physical Note PROVIDERS: Primary Care Physician: FENG GREENBERG MD [phone] Admitting Provider: Delfino Thomas [facility] START TIMES: ED Date: 06/22/2024 [...] evaluation treatment. Patient was initially seen in [place] [facility], transferred to [facility], and placed in ED observation for MRI/further evaluation. Patient currently is not having any color changes to her foot. Patient is feeling somewhat better, but continues to declined any significant pain treatment at this time. Patient had CT scan performed at [facility] that showed a bulging disc [...] The case was discussed with the following new vehicle sales consultant teams. Consulting Providers Provider Service Specialty [...] Code Status Information Code Status Full Code [facility] 06-22-2024 History and physical note Images from the original note were not included. ED Observation History and Physical Note PROVIDERS: Primary Care Physician: FENG GREENBERG MD [phone] Admitting Provider: Delfino Thomas DO CARE START [...] evaluation treatment. Patient was initially seen in [place] [facility], transferred to [facility], and placed in ED observation for MRI/further evaluation. Patient currently is not having any color changes to her foot. Patient is feeling somewhat better, but continues to declined any significant pain treatment at this time. Patient had CT scan performed at [facility] that showed a bulging disc [...] The case was discussed with the following new vehicle sales consultant teams. Consulting Providers Provider Service Specialty [...] Pain Patients Only: The ASCVD Risk score ([place] DK, et al., 2019) failed to calculate [...] Status Full Code [facility] Plan of care note Problem: Pain Goal: Patient goal is pain score less than 4, able to rest, and participant in treatment plan as appropriate Description: INTERVENTIONS: 1. Encourage patient or legal automobile sales representative to report early pain and [...] per policy 9. Teach patient or legal automobile sales representative interventions for comforting Outcome: Progressing [...] at the bedside 7. Instruct patient/ patient automobile sales representative about use of safety devices 8. Include patient/ patient automobile sales representative in decisions related to safety [...] hygiene technique. 7. Identify and instruct patient/patient automobile sales representative in use of appropriate isolation precautions for identified infection/symptoms. 8. Provide and discuss with patient/patient automobile sales representative on educational MDRO sheet. 9. Encourage and monitor nutritional status daily and consult pump installation and servicer if indicated. 10. Implement neutropenic guidelines as needed. Outcome: Progressing Note: Evaluation of progress towards goal: Problem: Moderate - High Risk Fall Score Description: Lawson Fall Score of =/> 25 or indicated by [facility] Assessment Goal: Patient should be free from fall Description: Interventions: 1. [place] to environment 2. Hourly rounds addressing the [...] non-skid footwear 11. Teach patient and patient automobile sales representative to maintain environment for safety [...] (cane, walker) within reach 19. Request patient automobile sales representative bring adaptive equipment/mobility aids from home or obtain and provide as needed 20. Consult pharmacy regarding effects of med's affecting mobility, cognition, and alternatives 21. Obtain physician order for PT if risk factors associated with mobility are present 22. Obtain physician order for OT as appropriate 23. Utilize diversional activities 24. Educate patient and patient automobile sales representative how to maintain a safe environment during visitation times (notify nurse prior to leaving bedside) 25. Consider appropriateness of medical or non-medical transcription 26. Set up voiding schedule as appropriate [...] Progressing Note: Evaluation of progress towards goal: [facility] 06-22-2024 Emergency department Triage note Patient presented to [place] ER due to losing muscle mass in her Rt buttock and RLE turning purple along with shaking. [facility] 06-22-2024 Emergency department Note Patient presented to [place] ER due to losing muscle mass in her Rt buttock and RLE turning purple along with shaking. documented in this encounter [facility] 08-06-2021 Note Chief Complaint consultation for [...] adapter, 2 puf (more content not included)... [facility] Comment on above: Result Comment: Elec tronically Signed By: POPPY VALDEZ, Fred Jain\Date and Time Signed: 08/06/21 15:12 EST Evaluation note Diagnosis Back pain- Primary Unspecified backache Back pain Unspecified backache Atrophy of muscle of right thigh Muscle wasting Muscular wasting and disuse atrophy, not elsewhere classified Trouble walking Difficulty in walking [facility] Back pain Unspecified backache Atrophy of muscle of right thigh [facility] Diagnosis Neurogenic claudication- Primary Spinal stenosis of lumbar region [facility]* Attachments The following attachments cannot be sent through Care Everywhere. * Upper Back Pain Discharge Instructions (Yi) [facility]ructionsNot on file documented in this encounterProDo[facility] SystemInstructionsNot on file [facility] in [facility] Summary Purpose Family History No [...] section and content) DATE CREATED AUTHOR 09/15/[address] [facility] DATE CREATED AUTHOR AUTHOR'S ORGANIZ ATION 08/26/2022 [facility] DATE CREATED AUTHOR AUTHOR'S ORGANIZ ATION 06/23/2024 [facility] DATE CREATED AUTHOR AUTHOR'S ORGANIZ ATION 07/17/2024 [facility] DATE CREATED AUTHOR AUTHOR'S ORGANIZ ATION 08/10/2024 [facility] Reason for Visit (unrecogniz ed section [...] right thigh Delfino Thomas, DO [address] [place] [address] Phone: tel: fax: [facility] [address] [place] [address] Phone: tel:[phone] fax: Referral ID Status Reason Start Date Expiration Date Visits Requested Visits Authorized [id number] Pending Review Specialty Services Required 06/22/2025 1 [...] Care Teams (unrecognized sec tion and content) Gypsum Roofer Relationship Specialty Start Date End Date Fegn Greenberg MD PCP - General Family Medicine 04/12/24 Gypsum Roofer Relationship Specialty Start Date End Date Feng Greenberg MD PCP - General Family Medicine 04/12/24 Gypsum Roofer Relationship Specialty Start Date End Date Feng [...] BE BASED ON THE PRIMARY CLINICAL RECORDS. [facility]. provides no warranty or guarantee of the accuracy or completeness of information in this document.
[2024-12-02 10:30] LABS: Basophils Percent Auto 0.5 % (0.2-2.0); Eosinophils Absolute Auto 0.2 10^3/uL (0.0-0.7); Eosinophils Percent Auto 2.1 % (0.9-7.0); Hematocrit 34.9 % (36.0-48.0); Hemoglobin 11.3 g/dL (12.0-16.0); Immature Granulocytes Abs Auto 0.03 10^3/uL (0.00-0.03); Immature Granulocytes Pct Auto 0.3 % (0.0-0.5); Lymphocytes Absolute Auto 2.4 10^3/uL (1.2-3.8); Lymphocytes Percent Auto 27.7 % (20.5-60.0); Mean Corpuscular HGB Conc 32.4 g/dL (29.9-35.2); Mean Corpuscular Hemoglobin 24.6 pg (26.7-34.0); Mean Corpuscular Volume 75.9 fL (81.0-99.0); Mean Platelet Volume 10.9 fL (9.5-13.5); Monocytes Absolute Auto 0.7 10^3/uL (0.3-0.8); Monocytes Percent Auto 8.3 % (1.7-12.0); Neutrophils Absolute Auto 5.3 10^3/uL (1.4-6.5); Neutrophils Percent Auto 61.1 % (43.0-75.0); Platelet Count 258 10^3/uL (150-450); Red Cell Distribution Width 15.7 % (11.0-15.0); White Blood Count 8.7 10^3/uL (4.0-11.0)
[2024-12-02 10:49] LABS: HCG Qualitative NEGATIVE (NEGATIVE); Internal Control Within Normal Limits
[2024-12-02 10:52] LABS: Anion Gap 12.4; BUN Creatinine Ratio 21.7; Calcium 9.3 mg/dL (8.5-10.1); Carbon Dioxide 27.9 mmol/L (21.0-32.0); Chloride 102 mmol/L (98-107); Estimated GFR (African America >60 (>=60 mL/min/1.73m^2); Estimated GFR (Non-African Ame >60 (>=60 mL/min/1.73m^2); Glucose 99 mg/dL (74-106); Potassium 4.3 mmol/L (3.5-5.1); Sodium 138 mmol/L (136-145)
[2024-12-02] MEDS: LACTATED RINGER'S SOLUTION 1,000 ML 50 ML IV ×4 (11:10→17:43)
[2024-12-02] MEDS: ALBUTEROL SULFATE 2.5 MG/3 ML VIAL NEB IH (11:11)
--- NOTE | 2024-12-02 14:52 | PC.NURSE ---
Patient is sedated and sternal rubbing is what it takes for patient to respond . pupils are equal and reactive. Currently on 4 liters of oxygen to keep saturation's up currently at 100%.
--- NOTE | 2024-12-02 15:05 | PC.NURSE ---
Dr. Gusman at bed side with patient and she answered his questioning. Patient states she hears ringing. Eyes nystagmus. Vitals are doing better at this time . Patient is able to move her arms and legs now that she is more awake.. calling out o urinate. This keno writer tried to put bed barrios under and patient could not urinate.
--- NOTE | 2024-12-02 15:18 | PC.NURSE ---
asked Dr. Gusman is this technical document writer can put a catheter in due to the patient's inability to urinate. Patient was stating she had a lot of pressure and could not urinate Inserted the catheter with 1000 cc of pink tinged urine drained in catheter bag.
--- NOTE | 2024-12-02 15:25 | PC.NURSE ---
patient is to sedate to administer any narcotics at this time. although patient verbalizes pain patient falls quickly asleep and sternal rubbing or shaking patient is what is necssary to wake he up and to take deep breaths.
--- NOTE | 2024-12-02 15:37 | PC.NURSE ---
Patient has not perked up since patient was brought to PACU. Even after arousing her to insert jaramillo catheter patient continues to fall asleep and with continual shaking and sternal rubbing to wake back up.
--- NOTE | 2024-12-02 15:47 | PC.NURSE ---
Patint is aware of time and space at this time. Patient states her head hurts constantly but better with laying flat. Patient has had the headache since she began speaking with staff in PACU. Patient is able to follow finger with eyes at this time nystagmus has improved slightly. approaching 2 hours in post op.
--- NOTE | 2024-12-02 15:58 | CT_ITS ---
[address] [address] Patient Name: JARRELL WHITING MRN: [id number] date: 1990 Sex: F Assigned Patient Location: SURGOUT Current [facility] Accession/Order Number: [id number] Exam Date: 12/02/2024 16:24 Report Date: 12/02/2024 16:29 At the request of: FENG DURAN MD Procedure: CT cervical spine wo con Unenhanced head CT TECHNIQUE: Contiguous axial imaging of the head. The CT exam was performed using one or more the following dose reduction techniques: Automated exposure control, adjustment of the MA and/or Kv according to patient size, or use of the iterative reconstruction technique. COMPARISON: None HISTORY: Mental status change. Headache. Post lumbar nodule repair for CSF leak. VENTRICLES: Within normal limits ATROPHY: None BRAIN PARENCHYMA: Adequate finn-white matter differentiation identified. HEMORRHAGE: None HERNIATION: No mass effect or herniation INFARCTION: No recent vascular distribution infarction is seen. EXTRA-AXIAL FLUID COLLECTIONS None MIDBRAIN: Unremarkable TED: Unremarkable MEDULLA: Unremarkable SINUSES: Unremarkable ORBITS: Grossly unremarkable MASTOIDS: Unremarkable BONY STRUCTURES Intact ADDITIONAL FINDINGS: CT/CT head/brain wo con IMPRESSION: No acute findings. CT Cervical Spine withoutcontrast TECHNIQUE: Axial imaging with 2-D and 3-D reconstruction. The CT exam was performed using one or more the following dose reduction techniques: Automated exposure control, adjustment of the MA and/or Kv according to patient size, or use of the iterative reconstruction technique. COMPARISON: 10/31/2024 HISTORY: Mental status change. POST SURGERY CHANGES: None BONY ALIGNMENT: Adequate BONY SPINAL CANAL: Patent central bony canal FRACTURE: None BONY LESIONS: None SOFT TISSUES: Unremarkable DEGENERATIVE CHANGES: None LUNG APICES: Unremarkable ADDITIONAL FINDINGS: Heterogeneous density of the thyroid gland IMPRESSION: No acute process Impression dictated by: Aditya Ceja M.D. 12/02/2024 4:29 PM Dictation Location[facility] Electronically authenticated by: [id number] Y Date: 12/02/2024 16:29
--- NOTE | 2024-12-02 15:58 | CT_ITS ---
[address] [address] Patient Name: JARRELL WHITING MRN: [id number] date: 1990 Sex: F [facility] Accession/Order Number: [id number] Exam Date: 12/02/2024 16:24 Report Date: 12/02/2024 16:29 At the request of: FENG DURAN MD Procedure: CT cervical spine wo con Unenhanced head CT TECHNIQUE: Contiguous axial imaging of the head. The CT exam was performed using one or more the following dose reduction techniques: Automated exposure control, adjustment of the MA and/or Kv according to patient size, or use of the iterative reconstruction technique. COMPARISON: None HISTORY: Mental status change. Headache. Post lumbar nodule repair for CSF leak. VENTRICLES: Within normal limits ATROPHY: None BRAIN PARENCHYMA: Adequate finn-white matter differentiation identified. HEMORRHAGE: None HERNIATION: No mass effect or herniation INFARCTION: No recent vascular distribution infarction is seen. EXTRA-AXIAL FLUID COLLECTIONS None MIDBRAIN: Unremarkable TED: Unremarkable MEDULLA: Unremarkable SINUSES: Unremarkable ORBITS: Grossly unremarkable MASTOIDS: Unremarkable BONY STRUCTURES Intact ADDITIONAL FINDINGS: CT/CT cervical spine wo con IMPRESSION: No acute findings. CT Cervical Spine withoutcontrast TECHNIQUE: Axial imaging with 2-D and 3-D reconstruction. The CT exam was performed using one or more the following dose reduction techniques: Automated exposure control, adjustment of the MA and/or Kv according to patient size, or use of the iterative reconstruction technique. COMPARISON: 10/31/2024 HISTORY: Mental status change. POST SURGERY CHANGES: None BONY ALIGNMENT: Adequate BONY SPINAL CANAL: Patent central bony canal FRACTURE: None BONY LESIONS: None SOFT TISSUES: Unremarkable DEGENERATIVE CHANGES: None LUNG APICES: Unremarkable ADDITIONAL FINDINGS: Heterogeneous density of the thyroid gland IMPRESSION: No acute process Impression dictated by: Aditya Ceja M.D. 12/02/2024 4:29 PM Dictation Location: [facility] Electronically authenticated by: [id number] Y Date: 12/02/2024 16:29
--- NOTE | 2024-12-02 16:18 | PC.NURSE ---
1610 took patient down to CT too get CT of head and neck. Upon return to PACU patient had to be sternal rubbed and shaken to awaken. Spouse was brought back to bedside in PACU to be with .
--- NOTE | 2024-12-02 16:36 | PC.NURSE ---
Patient had CT with transfer drain was puled out. Nurse practioner updated
--- NOTE | 2024-12-02 16:47 | PC.NURSE ---
Nurse practioner Elena spoke with Dr Steele to update at this time. He is aware of the drain leaking out.
--- NOTE | 2024-12-02 17:16 | PM.ORPN ---
Progress Note: A&P Assessment and Plan (1) Cerebrospinal fluid leak from spinal puncture: Assessment and Plan: Evaluated 4 hours post op from Lumbar I&D with dural repair 3 months s/p L5-S1 decompression and posterior fusion - CT H and Cervical spine were completed and negative for acute findings. - Discussed patient's condition with Dr Manrique and Hospitalist Dr Greenberg and decision was made to transfer to [facility] for closer neuro monitoring and further evaluation with MRI Brain C/T/L Spine and Neuro consult. - Transfer initiated 1700 - Start Decadron 10mg q8h - Cont tele and pulse ox monitoring - Life flight transport was attempted but crews grounded given weather, ground transport expected 2244 as no other crews available - Telestroke evaluation was ordered while awaiting transport, they did not believe this to be stoke related, no intervention taken on their part. - Patient discharged to [facility] Subjective Subjective Interval history: Patient was evaluated post operatively in PACU s/p I&D and Dural repair today about 4 hours postoperatively as there was concern for neuro deficits and altered mentation. She had a L5-S1 decompression and fusion on 08/19/[address] Manrqiue and was seen in the office today for MRI Lumbar spine review after complaining of headaches and increased swelling at the top of her incision. MRI and clinical presentation was concerning for CSF leak so patient was taken to the OR today. Per Anesthesia she had not had problems waking up with her prior surgery and they were having to sternal rub her at times to wake her up and her nystagmus persisted. .She had not received any narcotics postoperatively. She was not in any respiratory distress. On my exam she would follow commands and moved her upper extremities equally. In her lower extremities she would wiggle toes, dorsi and plantar flex actively, and flex and extend her knees and hips, but knee and hip ROM was decreased as this caused pain. She did have sensation in the lower extremities with painful stimulation but not with light touch. She was oriented x [address] but not year. She states that her head/ neck and legs feel heavy and she has a headache. Exam Narrative Exam Narrative: On exam patient is laying on the hospital bed/cart, eyes spontaneously open, in no distress, oriented x [address], follows all commands but would fall asleep easily. She would arouse to voice. Pupils 3mm equal round and reactive to light. No cervical spine pain with palpation. Actively moves upper extremities equally, 5/5 strength, sensation intact with light touch. Hemovac drain in place at the lumbar spine, bloody output in drain. Lumbar dressings are clean/ dry/ and intact. Bilateral lower extremities she wiggles toes, dorsiflexes and plantar flexes ankles, flexes and extends knees and hips but these are both decreased as this causes pain, light touch sensation is absent, painful stimulation is somewhat felt in the bilateral lower extremities,does not withdraw . 2+ DP pulses palpated. Constitutional Vital Signs, click to edit/add: Last Vital Signs Temp 97.3 F L 12/02/24 13:58 Pulse 75 12/02/24 15:55 Resp 7 L 12/02/24 15:55 BP 133/79 12/02/24 15:55 Pulse Ox 100 12/02/24 15:55 O2 Del Method Room Air 12/02/24 16:37 O2 Flow Rate 4 12/02/24 15:55 Urinary Catheter Management Urinary Catheter Management Urethral: Cath placed during this visit: yes Urethral indwelling: Yes Reason for continuing: prolonged immobilization Insertion date: 12/02/24 Insertion time: 15:10
--- NOTE | 2024-12-02 17:18 | PC.NURSE ---
1428 patient was awoken with sternal rub and states she can not move her legs but was moving her right foot and wiggled both toes.
--- NOTE | 2024-12-02 17:21 | PC.NURSE ---
1650 prior to moving patient to room 224 Physician assistant infant toddler teacher Elena is aware that patient had no reaction to painful stimuli to bilateral lower extremities and had updated DrLong Steele. Patient's was slightly better with arousal but continues to be sedate and hard to arouse at times.Vitals have remained in the same range for the past 1.5 hours. The plan is for Patient to be transferred to [facility] for further evaluation. Patient is
--- NOTE | 2024-12-02 17:28 | PC.NURSE ---
admitted to 224 from pacu, beside report obtained. pt tearful, oriented. vs obtained, sig other and mother at bedside. drain intact to back, draining sang drainage. transparent dressing intact. pt does not have sensation from hips to toes, pt states she feels this nurse touching just above ivan hips. pt able to wiggle toes, pulses strong. pt falls asleep easily, at times is difficult to arouse, sternal rub done and pt awakens. pt denies pain, refused pain meds, stated i'd rather feel the pain. 1730 roman from ortho present, stated she contacted [facility] and awaiting bed assignment. pt condition discussed.
--- NOTE | 2024-12-02 17:28 | PC.NURSE ---
at transfer to the floor room Dr. Gusman, Dr. Greenberg and Physician Elena aware patient being moved there to be monitored in step down until transfer bed is available to [facility]
[2024-12-02] MEDS: DEXAMETHASONE SOD PHOS 10 MG/ML VIAL IV (17:42)
--- NOTE | 2024-12-02 17:42 | PC.NURSE ---
1610 When at bedside he states patient has been having issue and refused to go see physician who performed the surgery. Dr. Greenberg also advised patient to go se surgeon patient did not want to go.
--- NOTE | 2024-12-02 17:44 | PC.NURSE ---
Late entry for 1058 on 12/02/2024. Patient arrived to surgery waiting area and required wheelchair transfer when this nurse noted her difficulty with ambulating into department. Patient reported she had a headache, was nauseous and weak and walked in a hunched over manner. Patient taken to stretcher via wheelchair. Patient was placed on monitor to gain vitals, see charting. IV access was gained and fluids initiated. Patient reports her back is leaking . This teletypewriter installer noted bulky damp dressing to lower back, as well as her shirt was wet. Patient reports that Dr. Manrique had attempted to do needle aspiration in the office and then sent her directly over to the hospital. Area to lower back was near back surgical site scar from July that was performed by Dr. Manrique. Area was edematous, about the width of a small navel orange and stood out from the spine and was soft to touch with continued noted clear fluid coming from the pinpoint area that patient reports he poked in the office. See further assessment in her admission.
--- NOTE | 2024-12-02 17:45 | PC.NURSE ---
Patient was sedate and hard to arouse during her stay in pacu. Dr. Gusman was aware and was at bedside along with this verse writer. Multiple times sternal rubs and shaking were means of arousing this patient. Patient was placed on 4 liters of oxygen to maintain saturation above 92% No pain medications were given by this verse writer while in PACU . Pain medications were given by Dr Gusman. prior to her coming to pacu phase 1. For a majority of patient's stay in PACU she was sedate with slight improvement by the time she was transferred to room 224 in waiting to be transferred to [facility]. Dr. Steele was called by staff to update him on patient's condition. Liz Cardenas stated his physician 's assistant warehouse manager was going to put order's in to care for this patient. Dr. Gusman updated Dr. Greenberg on patient's condition all in agreement that patient needed bigger facility with specialities. Dr. Greenberg did order stat CT of head and neck which were noted to be negative.
--- NOTE | 2024-12-02 18:22 | PC.NURSE ---
received bed assignment at [facility]'s 14A, dr harding accepting. family and dr diaz made aware. transport arranged for 2302
[2024-12-02] MEDS: CEFAZOLIN SODIUM/DEXTROSE,ISO 2 GM/50 ML PIGGYBACK IV (19:22)
[2024-12-02 20:00] LABS: Glucometer 188 mg/dL (74-106)
--- NOTE | 2024-12-02 20:42 | PC.NURSE ---
2000 - RN to bedside. NIH scale completed as charted, resulted at 18. No facial droop, Head or gaze deviation, No hemiparesis noted. RACE score 3 for mild arm motor impairment, and severe BLE motor impairment, GCS resulted @ 12 for Opening eyes to painful stimuli, and localizing to pain. Pt difficult to arouse, Sternal rub needed to have patient open eyes. Continuous stimuli needed to keep patient alert. Pt speech lethargic, slurred and slow. Garbled at times. Remains alert to self, unable to state year, birthdate. Pt BLE loss of sensation from Bilat hip down. Sensation intact over bladder area, and Bilat quads of ABD. Pt unable to lift BLE off bed without maximum assistance. Minimal movement to Bilat toes. Babinski positive on Bilat feet. Hand grasp weak, DPF severely weak. Family at bedside. Updated on plan of care. 2023 - [facility] [employer] contacted regarding transport of critical patient - 2034 - down for weather 2024 - [facility] - Contacted regarding transport of Critical Patient - 2104 - down for weather. 2049 - Contacted [facility] regarding possible transfer for change in patient status. No crews available. 2049 - [place] contacted regarding change in patient's change in status. Need for ACLS transport. Earliest arrival is 2329. Will send a crew if one frees up. 2054 - [employer] transport contacted - No lila available in area at this time, 2055 - Will send a crew if one frees up
--- NOTE | 2024-12-02 21:29 | PC.NURSE ---
1929 Dr[address] Steele called while RN assessing pt. He wanted update. Pt. difficult to arouse, had to sternal rub her. She was following commands but she is having pain in back and head, refused pain medication d/t lab made . She has no feeling in bilat legs up to her hips. She could slightly wiggle her toes and very weak hand grasps bilaterally. Bilat pupils 1-2 +, reactive to light. vitals signs stable, she is in NSR. While I was on the phone with Dr. Steele, Dr. Greenberg came to check on the pt. I gave the phone to Dr. Greenberg to speak with Dr. Steele, only order was for tele-stroke consult for another pair of eyes. I notified Nursing stitching department supervisor of current issues and began the process of consulting tele-stroke. I spoke with multiple people from tele stroke along with Dr. Flores , which he did not believe it to be stroke related but d/t surgery. He Asked to have Dr. Steele call him. RN notified Dr. Steele and he called me back after speaking with Dr. Flores and had no other orders except to get life flight for an earlier transfer out if possible. After multiple calls we determined , [facility] grounded d/t weather. vegetable farming supervisor for ground transport is 2244. Rebecca Priest PA-C called RN for an update. RN Notified DEX Fernandez of the issue the pt was having and it was mentioned that these were same issues she had post op and Dr. Steele was made aware of the issues then by her. This is the reason the pt is being transferred to [facility]
[2024-12-02] MEDS: HYDROMORPHONE HCL 0.5 MG/0.5 ML SYRINGE IV (22:30)
--- NOTE | 2024-12-06 16:35 | P.ON_ITS ---
Urinary Catheter Management Urinary Catheter Management Urethral: Cath placed during this visit: yes Urethral indwelling: Yes Reason for continuing: surgical procedure Insertion date: 12/02/24 Insertion time: 15:10 Surgery Operative Note Operative Note Procedure Date: 12/02/24 Time Out Performed: yes Pre-op Diagnosis: 1. 3-months status post L5-S1 decompression and fusion with postoperative fluid collection and intermittent headaches Post-op Diagnosis: same as pre-op Procedures performed: 1. Exploration of lumbar wound 2. Lumbar seroma evacuation 3. Durotomy repair Anesthesia: MAUREENA Primary Surgeon: Tammie Steele Complications: None Estimated blood loss (mL): 25 Findings: durotomy Specimens: None Drains: Hemovac x 1 Indications for Procedures: INDICATIONS: ?This is a 34-year-old female who is a little over 3 months status post L5-S1 decompression and fusion with complaints of persistent back pain, leg pain and intermittent headaches. She was seen in the office today for a MRI review which showed a postoperative fluid collection. This was aspirated in office, found to be a clear fluid and patient developed a a more severe headache. Patient agreed to proceeding with surgical exploration of her lumbar wound today.?Patient, therefore, understood the indication for the surgery as well as its risks, benefits, and alternatives. ?These risks include, but are not limited to paralysis, infection, hematoma, dural tear, nerve root injury, DVT/PE, stroke, PR, etc. ?All questions were answered and informed consent was obtained. Detailed description of Procedure: DESCRIPTION OF PROCEDURE: ?The patient was taken to the operating room by Anesthesiology Service and had satisfactory general anesthesia. ?A first- generation cephalosporin was given within one hour of surgical incision, 2 gm of cefazolin were given IV. ?Venous thromboembolic prophylaxis was performed with sequential devices. ?The patient was then positioned prone on a standard OSI frame with the abdomen hanging free and all bony prominences well padded. ?The low back was then prepped and draped in its entirety in the usual sterile fashion. Before incision, a formal time-out was taken per protocol. ?We then opened up the incision from proximal to distal and gained access to the epidural space. Patient found to have a large fluid which was evacuated. Fluid was most consistent with a seroma/CSF. We then explored her lumbar wound and patient found to have a large durotomy at the L5-S1 level. This was tightly repaired using a 5-0 Prolene. Water tight seal achieved. Satisfied with this, we then achieved hemostasis. ?We then copiously irrigated the wound. ?We then inserted a Hemovac drain through a separate stab incision. ?The wound was then closed in layer with interrupted 1 and 2-0 Vicryl sutures and dusted with vancomycin powder. ?A 3-0 Monocryl was used for the skin. ?The skin edges were sealed with Dermabond. ?A dry sterile dressing was applied. ?The patient was then returned to the hospital bed, extubated, and taken to recovery room in stable condition. POSTOPERATIVE CARE: ?The patient will be recovered in PACU and then a regular nursing floor. ?Once the drainage is low and pain is under control and patient able to ambulate without a headache, patient will be discharged home per clinical indication. ?
== END 2024-12-02 22:50 | disposition short-term general hospital (02) ==
LOC: SURGOUT 10:08 → MS 17:00
PROVIDERS: Anesthesiology; PCP Family Medicine; Visit Provider Orthopaedic Surgery Orthopaedic Surgery of the Spine
PROC: (CPT 630; principal; 2024-12-02 11:00)
DX: M96.842 Postprocedural seroma of a musculoskeletal structure following a musculoskeletal system procedure (principal); G97.41 Accidental puncture or laceration of dura during a procedure; R51.9 Headache, unspecified; Z98.1 Arthrodesis status; F17.290 Nicotine dependence, other tobacco product, uncomplicated; J45.909 Unspecified asthma, uncomplicated; Z87.442 Personal history of urinary calculi
CPT/HCPCS: 63707; 36415; 51702; 70450; 71046; 72125; 80048; 84703; 85025; 86850; 86900; 86901; 94640; C1762; J0690; J1100; J1171; J1885; J2175; J2250; J2405; J2704; J3010

== ENCOUNTER 2024-12-06 11:06 | Emergency (ER) | payer MEDICAID, SELFPAY ==
[2024-12-06 11:10] VITALS: BP 140/92; PULSE 103; TEMP 37.3; O2SAT 100; BMI 22.8
--- NOTE | 2024-12-06 11:25 | CT_ITS ---
The [address] [address] Patient Name: JARRELL WHITING MRN: [id number] date: 1990 Sex: F Assigned Patient Location: ER Current Patient Location: ER Accession/Order Number: [id number] Exam Date: 12/06/2024 14:47 Report Date: 12/06/2024 14:57 At the request of: KYLAH SCHMIDT MD Procedure: CT lumbar spine w con Unenhanced head CT TECHNIQUE: Contiguous axial imaging of the head. The CT exam was performed using one or more the following dose reduction techniques: Automated exposure control, adjustment of the MA and/or Kv according to patient size, or use of the iterative reconstruction technique. COMPARISON: None HISTORY: Recent spine surgery. Clear fluid and a drain one day ago. Headache. VENTRICLES: Within normal limits ATROPHY: None BRAIN PARENCHYMA: Adequate finn-white matter differentiation identified. HEMORRHAGE: None HERNIATION: No mass effect or herniation INFARCTION: No recent vascular distribution infarction is seen. EXTRA-AXIAL FLUID COLLECTIONS None MIDBRAIN: Unremarkable TED: Unremarkable MEDULLA: Unremarkable SINUSES: Unremarkable ORBITS: Grossly unremarkable MASTOIDS: Unremarkable BONY STRUCTURES Intact ADDITIONAL FINDINGS: CT/CT lumbar spine w con IMPRESSION: No acute findings. CT LUMBAR SPINE WITH CONTRAST TECHNIQUE: Axial acquisition of the lumbar spine obtained with the sagittal and coronal reconstructed imaging.The CT exam was performed using one or more the following dose reduction techniques: Automated exposure control, adjustment of the MA and/or Kv according to patient size, or use of the iterative reconstruction technique. 100 cc of Omnipaque 300 HISTORY: As above COMPARISON: 11/11/2024 FINDINGS: The last fully segmented vertebral pair is operationally defined as L5/S1. POST SURGERY CHANGES: L5-S1 posterior fusion. No hardware complication. Posterior decompression. 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 Similar size compared to prior examination. Maximal measurement 6.4 cm.. BONY ALIGNMENT: Adequate bony alignment identified. SPINAL CANAL:Patent bony central canal LUMBAR FRACTURE: None BONY LESIONS: L3-4 vertebral body hemangioma redemonstrated. KIDNEYS: No hydronephrosis is identified. AORTA: No aortic aneurysm is seen. 3 cm left ovarian cyst. Lower thoracic level: Unremarkable L1-2:Unremarkable L2-3: Unremarkable L3-4:Unremarkable L4-5:Unremarkable L5-S1:Unremarkable Assessment of disc herniation limited with CT examination. No obvious disc herniation seen with CT exam. 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 No acute lumbar spine findings. 3 cm left ovarian cyst Impression dictated by: Aditya Ceja M.D. 12/06/2024 2:57 PM Dictation Location: [place] [address] Electronically authenticated by: [id number] Y Date: 12/06/2024 14:57
--- NOTE | 2024-12-06 11:25 | CT_ITS ---
The [address] [address] Patient Name: JARRELL WHITING MRN: [id number] date: 1990 Sex: F Assigned Patient Location: ER Current Patient Location: ER Accession/Order Number: [id number] Exam Date: 12/06/2024 14:47 Report Date: 12/06/2024 14:57 At the request of: KYLAH SCHMIDT MD Procedure: CT lumbar spine w con Unenhanced head CT TECHNIQUE: Contiguous axial imaging of the head. The CT exam was performed using one or more the following dose reduction techniques: Automated exposure control, adjustment of the MA and/or Kv according to patient size, or use of the iterative reconstruction technique. COMPARISON: None HISTORY: Recent spine surgery. Clear fluid and a drain one day ago. Headache. VENTRICLES: Within normal limits ATROPHY: None BRAIN PARENCHYMA: Adequate finn-white matter differentiation identified. HEMORRHAGE: None HERNIATION: No mass effect or herniation INFARCTION: No recent vascular distribution infarction is seen. EXTRA-AXIAL FLUID COLLECTIONS None MIDBRAIN: Unremarkable TED: Unremarkable MEDULLA: Unremarkable SINUSES: Unremarkable ORBITS: Grossly unremarkable MASTOIDS: Unremarkable BONY STRUCTURES Intact ADDITIONAL FINDINGS: CT/CT head/brain wo con IMPRESSION: No acute findings. CT LUMBAR SPINE WITH CONTRAST TECHNIQUE: Axial acquisition of the lumbar spine obtained with the sagittal and coronal reconstructed imaging.The CT exam was performed using one or more the following dose reduction techniques: Automated exposure control, adjustment of the MA and/or Kv according to patient size, or use of the iterative reconstruction technique. 100 cc of Omnipaque 300 HISTORY: As above COMPARISON: 11/11/2024 FINDINGS: The last fully segmented vertebral pair is operationally defined as L5/S1. POST SURGERY CHANGES: L5-S1 posterior fusion. No hardware complication. Posterior decompression. 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 Similar size compared to prior examination. Maximal measurement 6.4 cm.. BONY ALIGNMENT: Adequate bony alignment identified. SPINAL CANAL:Patent bony central canal LUMBAR FRACTURE: None BONY LESIONS: L3-4 vertebral body hemangioma redemonstrated. KIDNEYS: No hydronephrosis is identified. AORTA: No aortic aneurysm is seen. 3 cm left ovarian cyst. Lower thoracic level: Unremarkable L1-2:Unremarkable L2-3: Unremarkable L3-4:Unremarkable L4-5:Unremarkable L5-S1:Unremarkable Assessment of disc herniation limited with CT examination. No obvious disc herniation seen with CT exam. 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 No acute lumbar spine findings. 3 cm left ovarian cyst Impression dictated by: Aditya Ceja M.D. 12/06/2024 2:57 PM Dictation Location: [place] [address] Electronically authenticated by: [id number] Y Date: 12/06/2024 14:57
--- NOTE | 2024-12-06 11:25 | PC.NURSE ---
area to lower mid back has steri strips in place, tube that was placed for drainage is no longer in place to lower incision and there is a clear fluid slowly draining from this site. ER DR assessment complete
[2024-12-06] MEDS: 0.9 % SODIUM CHLORIDE 1,000 ML 1000 ML IV (11:49)
[2024-12-06] MEDS: KETOROLAC TROMETHAMINE 30 MG/ML VIAL 15 MG IVP (11:50)
[2024-12-06] MEDS: FAMOTIDINE/PF 20 MG/2 ML VIAL IV (11:50)
[2024-12-06 12:02] LABS: Basophils Percent Auto 0.4 % (0.2-2.0); Eosinophils Absolute Auto 0.2 10^3/uL (0.0-0.7); Eosinophils Percent Auto 1.8 % (0.9-7.0); Hematocrit 33.3 % (36.0-48.0); Immature Granulocytes Abs Auto 0.02 10^3/uL (0.00-0.03); Immature Granulocytes Pct Auto 0.2 % (0.0-0.5); Lymphocytes Absolute Auto 1.2 10^3/uL (1.2-3.8); Lymphocytes Percent Auto 14.3 % (20.5-60.0); Mean Corpuscular Hemoglobin 24.6 pg (26.7-34.0); Mean Corpuscular Volume 74.5 fL (81.0-99.0); Mean Platelet Volume 11.8 fL (9.5-13.5); Monocytes Absolute Auto 0.7 10^3/uL (0.3-0.8); Monocytes Percent Auto 8.5 % (1.7-12.0); Neutrophils Absolute Auto 6.1 10^3/uL (1.4-6.5); Neutrophils Percent Auto 74.8 % (43.0-75.0); Platelet Count 229 10^3/uL (150-450); Red Blood Count 4.47 10^6/uL (4.20-5.40); Red Cell Distribution Width 15.8 % (11.0-15.0); White Blood Count 8.1 10^3/uL (4.0-11.0)
[2024-12-06 12:05] LABS: HCG Qualitative NEGATIVE (NEGATIVE); Internal Control Within Normal Limits
[2024-12-06 12:06] LABS: Alanine Aminotransferase 27 U/L (14-59); Albumin Globulin Ratio 0.7; Albumin Level 3.2 g/dL (3.4-5.0); Alkaline Phosphatase 91 U/L (46-116); Anion Gap 14.5; Aspartate Amino Transferase 17 U/L (15-37); BUN Creatinine Ratio 17.9; Bilirubin Total 0.5 mg/dL (0.2-1.0); Calcium 9.3 mg/dL (8.5-10.1); Carbon Dioxide 28.1 mmol/L (21.0-32.0); Chloride 100 mmol/L (98-107); Estimated GFR (African America >60 (>=60 mL/min/1.73m^2); Estimated GFR (Non-African Ame >60 (>=60 mL/min/1.73m^2); Globulin 4.3 g/dL; Glucose 110 mg/dL (74-106); Potassium 3.6 mmol/L (3.5-5.1); Sodium 139 mmol/L (136-145); Total Protein 7.5 g/dL (6.4-8.2)
[2024-12-06 12:09] LABS: Lactate/Lactic Acid 1.4 mmol/L (0.4-2.0)
[2024-12-06 14:35] VITALS: BP 95/61; PULSE 67; O2SAT 100
--- NOTE | 2024-12-06 15:55 | ED_ITS ---
HPI HPI - Back Pain/Injury General Chief Complaint: Back Pain/Injury Stated Complaint: POST SURGICAL COMPLICATIONS - LEAKING FLUID Time Seen by Provider: 12/06/24 11:18 Source: patient Mode of arrival: Wheelchair History of Present Illness HPI Narrative: The patient is a 34-year-old female status post L5-S1 decompression and fusion done in August at [place],on December 02 the patient was taken to the OR after complaining of intermittent headache was durotomy done in [place] . when the patient woke up from surgery she had this left lower extremity weakness and that why she was transferred for MRI to [facility] [place] MRI of the brain was unremarkable also MRI of Cervical and lumbar and thoracic spine, the patient had a drain placed after this procedure and she was discharged on Thursday The drain was removed this morning and the patient noticed that there was a clear fluid in it yesterday she started having some headache this morning but no fever no chills no other concern Related Data Home Medications ?Medication ?Instructions ?Recorded ?Confirmed albuterol sulfate 90 mcg/actuation 2 puff inhalation Q 4H PRN 04/22/23 12/02/24 aerosol inhaler shortness of breath or wheez ing budesonide-formoterol HFA 160 1 puff inhalation Q12H 1 12/02/24 mcg-4.5 mcg/actuation aerosol inhaler (Symbicort) metoprolol succinate 50 mg 50 mg PO DAILY 12/02/2412/21 tablet,extended release 24 hr Previous Rx's ?Medication ?Instructions ?Recorded methocarbamol 750 mg tablet 750 mg PO Q6H PRN back lidia n #20 04/22/23 tabs ondansetron 4 mg disintegrating 4 mg PO Q6H PRN nausea and 07/06/23 tablet vomiting #12 tabs Allergies Allergy/AdvReac Type Severity Reaction Status Date / Time tomato Allergy Severe Rash Verified 04/22/23 10:37 oxycodone (From Percocet) AdvReac Severe Nausea Verified 04/22/23 10:37 hydrocodone (From Vicodin) AdvReac Nausea Verified 04/22/23 10:37 Opioid HPI Opioid Management Most Recent Opioid Data: Last Pain Scale 7 Today, 11:50 Last Pain Intensity 5 08/21/24, 07:54 Last Pain Assessment 12/02/24, 10:58 Last MAR Pain Assessment Today, 11:50 Last ORT Total Score 3 12/02/24, 17:14 Last ORT Risk Category Low Risk 12/02/24, 17:14 Review of Systems ROS Status of ROS 10 or more systems reviewed and unremark able except as noted in history and below [facility] Medical History (Updated 12/06/24 @ 15:56 by Mirian Arzate MD) Liver mass ?R16.0 - Hepatomegaly, not elsewhere classified (ICD-10) Leg fracture ?S82.90XA - Unspecified fracture of unspecified lower leg, initial encounter for closed fracture (ICD-10) H/O reduction of closed fracture ?Z87.81 - Personal history of (healed) traumatic fracture (ICD-10) Anemia ?D64.9 - Anemia, unspecified (ICD-10) PTSD (post-traumatic stress disorder) ?F43.10 - Post-traumatic stress disorder, unspecified (ICD-10) Panic attacks ?F41.0 - Panic disorder [episodic paroxysmal anxiety] (ICD-10) Electronic cigarette use ?Z78.9 - Other specified health status (ICD-10) Dizziness ?R42 - Dizziness and giddiness (ICD-10) Migraine ?G43.909 - Migraine, unspecified, not intractable, without status migrainosus (ICD-10) Kidney stones ?N20.0 - Calculus of kidney (ICD-10) Colitis ?K52.9 - Noninfective gastroenteritis and colitis, unspecified (ICD-10) Anxiety ?F41.9 - Anxiety disorder, unspecified (ICD-10) Bronchitis ?J40 - Bronchitis, not specified as acute or chronic (ICD-10) Asthma ?J45.909 - Unspecified asthma, uncomplicated (ICD-10) Lumbar stenosis ?M48.061 - Spinal stenosis, lumbar region without neurogenic claudication (ICD-10) Low back pain ?M54.50 - Low back pain, unspecified (ICD-10) Surgical History (Updated 12/02/24 @ 10:55 by Mara Mckay RN) Status post lumbar spine surgery for decompression of spinal cord ?Z98.890 - Other specified postprocedural states (ICD-10) Hx of tubal ligation ?Z98.51 - Tubal ligation status (ICD-10) History of liver biopsy ?Z98.890 - Other specified postprocedural states (ICD-10) History of tonsillectomy and adenoidectomy ?Z90.89 - Acquired absence of other organs (ICD-10) History of section ?Z98.891 - History of uterine scar from previous surgery (ICD-10) History of section ?Z98.891 - History of uterine scar from previous surgery (ICD-10) Family History Other Family history not known due to adoption Social History Within the past year, how often did you have a drink containing alcohol: never Score interpretation: A score less than 3 is consistent with normal alcohol consumption. Smoking status: Heavy tobacco smoker Do you use any of these nicotine containing products: vaping products Non-prescribed substance use: cannabis (any form) Highest level of school completed/degree received: some college, no degree Little interest or pleasure in doing things: not at all Feeling down, depressed, or hopeless: not at all Exam Narrative Exam Narrative: Nurses notes and vital signs reviewed and patient is not hypoxic. Back exam The patient have at the intervertebral line level of the lower lumbar the patient have a wound that is clean and have 1 drop of fluid on the Steri-Strips, the dressing surrounding was wet there is no signs of redness or any infection or any drainage General: Well-appearing and in no apparent distress. Skin: Warm, dry, no pallor noted. No rash. Head: Normocephalic, atraumatic. Neck: Supple, non-tender. Eye: Pupils are equal, round and EOMI. No scleral icterus. Ears, Nose, Mouth, and Throat: TM are clear, no nasal mucosal hypertrophy. Oral mucosa is moist, no posterior oropharynx erythema, uvula is mid-line Cardiovascular: Regular Rate and Rhythm without murmur, gallop or rub. Respiratory: No accessory muscle use or respiratory distress. Lungs are clear to auscultation, no wheezing, rales or rhonchi Chest Wall: no tenderness Musculoskeletal: normal ROM, no calf or popliteal tenderness, no lower extremity edema/swelling GI: Abdomen is soft, non-distended. Normal bowel sounds. No masses appreciated. No tenderness to palpation. No rebound, guarding, or rigidity noted. Neurological: A&O x4. No cranial nerve dysfunction observed. No truncal ataxia. Moves all extremities. Sensation intact. Psychiatric: Cooperative and interactive. Normal mood and affect. Constitutional Vital Signs, click to edit/add: Last Vital Signs Temp 99.2 F 12/06/24 11:10 Pulse 67 12/06/24 14:35 Resp 16 12/06/24 14:35 BP 95/61 12/06/24 14:35 Pulse Ox 100 12/06/24 14:35 O2 Del Method Room Air 12/06/24 14:35 Course Vital Signs Vital signs: Vital Signs Temperature 99.2 F 12/06/24 11:10 Pulse Rate 103 H 12/06/24 11:10 Respiratory Rate 18 12/06/24 11:10 Blood Pressure 140/92 H 12/06/24 11:10 Pulse Oximetry 100 12/06/24 11:10 Temperature 99.2 F 12/06/24 11:10 Pulse Rate 67 12/06/24 14:35 Respiratory Rate 16 12/06/24 14:35 Blood Pressure 95/61 12/06/24 14:35 Pulse Oximetry 100 12/06/24 14:35 Oxygen Delivery Method Room Air 12/06/24 14:35 MDM - Back Pain/Injury MDM Narrative Medical decision making narrative: The patient CBC and chemistry showed no acute pathology CT of the head showed no acute pathology CT of the lumbar spine showed meningocele at L5-S1 but no other acute finding The patient initially had her case discussed with Dr. [place] and according to him she was supposed to stay in the hospital for 2 more days but she wanted to leave, and the patient was supposed to stay for 2 more days flat for total 5 days since the procedure done, the patient according to Dr. Negron was not compliant, the plan was for the drain to be removed and it already came out, there is of the CAT scan reviewed Right now just continue 2 more days of laying flat and in case of severe pain she is to come back to the ER The patient initially did not want to follow-up with Dr. Polk again , but right now with the fact that there is no need for any acute management the patient just will be discharged to follow-up with her primary care as outpatient The patient is to follow up with primary care physician in next 2-3 days or to return to the emergency department should any of the signs or symptoms worsen or new symptoms develop. The patient agrees with the following Diagnosis and Treatment plan and the patient will be discharged home. Lab Data Labs: Lab Results 12/06/24 Range/Units 11:45 WBC 8.1 (4.0-11.0) 10^3/uL RBC 4.47 (4.20-5.40) 10^6/uL Hgb 11.0 L (12.0-16.0) g/dL Hct 33.3 L (36.0-48.0) % MCV 74.5 L (81.0-99.0) fL MCH 24.6 L (26.7-34.0) pg MCHC 33.0 (29.9-35.2) g/dL RDW 15.8 H (11.0-15.0) % Plt Count 229 (150-450) 10^3/uL MPV 11.8 (9.5-13.5) fL Neut % (Auto) 74.8 (43.0-75.0) % Lymph % (Auto) 14.3 L (20.5-60.0) % Wilson % (Auto) 8.5 (1.7-12.0) % Eos % (Auto) 1.8 (0.9-7.0) % Baso % (Auto) 0.4 (0.2-2.0) % Neut # (Auto) 6.1 (1.4-6.5) 10^3/uL Lymph # (Auto) 1.2 (1.2-3.8) 10^3/uL Wilson # (Auto) 0.7 (0.3-0.8) 10^3/uL Eos # (Auto) 0.2 (0.0-0.7) 10^3/uL Baso # (Auto) 0.0 (0.0-0.1) 10^3/uL Abs Immat Gran (auto) 0.02 (0.00-0.03) 10^3/uL Imm/Tot Granulo (auto) 0.2 (0.0-0.5) % Sodium 139 (136-145) mmol/L Potassium 3.6 (3.5-5.1) mmol/L Chloride 100 (98-107) mmol/L Carbon Dioxide 28.1 (21.0-32.0) mmol/L Anion Gap 14.5 BUN 12.0 (7.0-18.0) mg/dL Creatinine 0.67 (0.55-1.02) mg/dL Est GFR ( Amer) >60 (>=60 mL/min/1.73m^2) Est GFR (Non-Af Amer) >60 (>=60 mL/min/1.73m^2) BUN/Creatinine Ratio 17.9 Glucose 110 H (74-106) mg/dL Lactate 1.4 (0.4-2.0) mmol/L Calcium 9.3 (8.5-10.1) mg/dL Total Bilirubin 0.5 (0.2-1.0) mg/dL AST 17 (15-37) U/L ALT 27 (14-59) U/L Alkaline Phosphatase 91 (46-116) U/L Total Protein 7.5 (6.4-8.2) g/dL Albumin 3.2 L (3.4-5.0) g/dL Globulin 4.3 g/dL Albumin/Globulin Ratio 0.7 Serum HCG, Qual Negative (NEGATIVE) Discharge Plan Discharge Chief Complaint: Back Pain/Injury Clinical Impression: Cerebrospinal fluid leak from spinal puncture Patient Disposition: Home, Self-Care Time of Disposition Decision: 15:55 Condition: Good Prescriptions / Home Meds: No Action ondansetron 4 mg tablet,disintegrating 4 mg PO Q6H PRN (Reason: nausea and vomiting) Qty: 12 0RF metoprolol succinate 50 mg tablet extended release 24 hr 50 mg PO DAILY albuterol sulfate 90 mcg/actuation HFA aerosol inhaler 2 puff INHALATION Q4H PRN (Reason: shortness of breath or wheezing) budesonide-formoterol [Symbicort] 160-4.5 mcg/actuation HFA aerosol inhaler 1 puff INHALATION Q12H methocarbamol 750 mg tablet 750 mg PO Q6H PRN (Reason: back pain) Qty: 20 0RF Print Language: Albanian Instructions: Cerebrospinal Fluid Leak (ED), Lumbar Puncture (ED) Referrals: Stiven Greenberg MD [Primary Care Provider, Family Practice] - 1 week
== END 2024-12-06 16:07 | disposition home or self-care (01) ==
PROVIDERS: Emergency Provider Emergency Medicine; PCP Family Medicine
DX: M96.89 Other intraoperative and postprocedural complications and disorders of the musculoskeletal system (principal); G96.00 Cerebrospinal fluid leak, unspecified; F17.290 Nicotine dependence, other tobacco product, uncomplicated
CPT/HCPCS: 36415; 70450; 72132; 80053; 83605; 84703; 85025; 96374; 96375; 99285; J1885; J3490; Q9967

== ENCOUNTER 2025-05-14 02:35 | Emergency (ER) | payer MEDICAID, SELFPAY ==
--- OUTSIDE RECORDS SUMMARY | 2024-11-11 05:10 | XMS_ITS ---
Author Organization [facility] Address [address] [place] [address] Care Team Providers Care Sewer Repairer Name Role Phone Stiven Greenberg Primary Care Provider Tammie Montes De Oca Unavailable [phone] REASON FOR VISIT LUMBAR RECHECK Encounters Encounter Location Date Provider Diagnosis [facility] Office [address] [place] [address] [place] [address] 11/11/2024 Tammie Manrique Plan Of Treatment No Information Progress Notes * JARRELL WHITING LDOB: [birth year] (35 yo F)Acc No.[id number]:11/11/2024 Patient:?SANDOVALDIGNANAILA [place] :?Tammie Steele MD, PhDDOB:1990 ???Age:34 Y???Sex:FemaleDate:11/11/2024Phone:[phone]:[address] [place], [place] [id number]:Stiven Greenberg Subjective: * Chief Complaints: * 1 . LUMBAR RECHECK. * Medical History: Objective: * Vitals: Assessment: Plan: * Treatment: Forms: * Images: * Electronic signature of Tammie Manrique MD, PHD on 05/14/2025 at 04:00 AM EST Sign off status: Pending * Provider: Darinel Steele MD, PhD Date: 0 11/11/2024 Generated for Printing/Faxing/eTransmitting on:?05/14/2025 04:00 AM EST
--- OUTSIDE RECORDS SUMMARY | 2025-05-02 11:45 | XMS_ITS | Encounter Summary ---
Author Organization [facility] Address [address] [place] [address] Care Team Providers Care Welfare Adviser Name Role Phone Pj Fuentes MD Unavailable [phone] Reason for Visit * ReasonCommentsJoint Pain Encounter Details DateTypeDepartmentCare Team (Latest Contact Info)Hhvlfgsuobc58/04/2025 11:45 AM ESTOffice Visit [facility] Orthopedic Spine [address] [place] [address] [phone] Pj Fuentes MD [address] [place] [address] Failed back surgical syndrome (Primary Dx) Social History Tobacco UseTypesPacks/DayYears UsedDateSmoking Tobacco: Every DayCigarettes Smokeless Tobacco: Never Tobacco Cessation:Counseling Given: Yes Comments:vapes Alcohol UseStandard Drinks/WeekCommentsNot Currently0 (1 standard drink = 0.6 oz pure alcohol)Substance UseTypesUse/WeekCommentsYesMarijuana/THCdaily CommentsUnknownSex and Gender InformationValueDate RecordedSex Assigned at Not on fileLegal WtmPdlmwe64/02/2025 9:50 AM EDTGender IdentityNot on fileSexual OrientationNot on filedocumented as of this encounter Progress Notes * Harjinder Verdin MA - 05/02/2025 11:47 AM EST Patient was identified by name and date of . Harjinder Verdin MA * Pj Fuentes MD - 05/02/2025 7:03 AM EST DX: Failed back LV: [id number] Ms Gomez comes in today with family. It is her preoperative appointment. We spent about 45 minutes talking about the upcoming surgery. They understand the importance of regular bowel habits going into surgery. We reviewed the Generalities, Expectations and Home Instructions concerning the surgery. We reviewed the MRI and CT scan and discussed the surgical plan. She expects to be flat in bed for 3days postop. The Informed Consent was signed electronically. They will follow up the day of their surgery. documented in this encounter Plan of Treatment DateTypeDepartmentCare Team (Latest Contact Info)Vyxixcovqyy86/25/2025 11:00 AM ESTOffice Visit [facility] [address] [place] [phone] Pj Fuentes MD [address] [place] [phone] documented as of this encounter Visit Diagnoses Diagnosis Failed back surgical syndrome- Primary Other unspecified back disorder documented in this encounter Care Teams Team MemberRelationshipSpecialtyStart DateEnd Date Pj Fuentes MD [address] [place] [phone] PhysicianOrthopaedic Surgery01/28/25documented as of this encounter
--- OUTSIDE RECORDS SUMMARY | 2025-05-02 13:30 | XMS_ITS | Encounter Summary ---
Author Organization [facility] Address [address] [place], [place] [phone] Care Team Providers Care Cyber Systems Operations Specialist Name Role Phone Pj Fuentes MD Unavailable [phone] Reason for Referral * E-Consult (Routine) - AuthorizedSpecialtyDiagnoses / ProceduresReferred By ContactReferred To ContactCardiology Diagnoses Preop testing Procedures E-CONSULT TO CARDIOLOGY Heather Lorenz APRN-CNP [address] [place] [address] Phone: tel: fax: Referral IDStatusReasonStart DateExpiration DateVisits RequestedVisits [id number]/5/[id number]/ Reason for Visit * Service Level Authorization (Routine) - ClosedSpecialtyDiagnoses / Procedures Referred By ContactReferred To ContactAnesthesiology Diagnoses Failed back surgical syndrome Pj Fuentes MD [address] [place] [phone] Phone: tel: fax: [facility] PRE ADMISSION TESTING [address] [place] [address] Phone: tel: Referral IDStatusReasonStart DateExpiration DateVisits RequestedVisits [id number]/24/20259/ Encounter Details DateTypeDepartmentCare Team (Latest Contact Info)Olpvtrhammm39/04/2025 1:30 PM ESTOffice Visit [facility] [address] [place] [address] Heather Lorenz APRN-CNP [address] [place] [address] Preop testing (Primary Dx); Body mass index (BMI) 22.0-22.9, adult Social History Tobacco UseTypesPacks/DayYears UsedDateSmoking Tobacco: Every DayCigarettes Smokeless Tobacco: Never Tobacco Cessation:Ready to Q uit: Not Asked; Counseling Given: Not Answered Comments:vapes Alcohol UseStandard Drinks/WeekCommentsNot Currently0 (1 standard drink = 0.6 oz pure alcohol)Substance UseTypesUse/WeekCommentsYesMarijuana/THCdaily CommentsUnknownSex and Gender InformationValueDate RecordedSex Assigned at Not on fileLegal VsoMliscu93/02/2025 9:50 AM EDTGender IdentityNot on fileSexual OrientationNot on filedocumented as of this encounter Last Filed Vital Signs Vital SignReadingTime TakenCommentsBlood Sgwuzzpi851/7205/02/2025 1:00 PM EST Nfphb506905/02/2025 1:00 PM XOAObwsofpxbbj52.4 ??C (97.5 ??F)05/02/2025 1:00 PM ESTRespiratory Jgkm346407/02/2024 1:00 PM ESTOxygen Tgnvduphgr513%05/02/2025 1:00 PM ESTInhaled Oxygen Concentration--Tfuptr88.1 kg (117 lb)05/02/2025 1:00 PM EST Xpmhbv558.7 cm (5' 0.9 )05/02/2025 1:00 PM ESTBody Mass Index22.18107/02/2024 1:00 PM ESTdocumented in this encounter Patient Instructions * Patient Instructions* Heather Lorenz APRN-CNP - 05/02/2025 1:54 PM EST On the morning of your surgery, please take only the following medications, with a small sip of water: budesonide-formoterol (Symbicort) 80-4.5 MCG/ACT inhaler ALBUTEROL INHALATION montelukast (SINGULAIR) 10 MG tablet Do not take cyclobenzaprine the night before or the morning of surgery Do not take any Aspirin products 7 days before surgery. Do not take Ibuprofen, Motrin, Advil, Aleve or any other NSAIDS (celebrex, meloxicam, naproxen, diclofenac, ketorolac) 3 days before surgery. May take over the counter Acetaminophen (Tylenol) as needed for pain. Please hold all Vitamin E, [place] 3, fish oil and herbal supplements for 1 week prior to surgery. You will receive a call the day before surgery between 10 am and 3 pm notifying you what time to arrive for surgery. Please use this CHECKLIST to prepare for your surgery/procedure: ? Assume that any lab or testing done during your Pre-admission testing appointment is within normal limits unless otherwise contacted. ? Expect a call from [employer] one business day prior to surgery for surgery arrival time and location. ? Please plan to restart your medications the day after surgery unless otherwise explicitly instructed. ? Please contact your surgeon???s/proceduralist???s office for any surgical or recovery types of questions. ? CANCELLING YOUR SURGERY/PROCEDURE: If you get a cold, are not feeling well, or become , please call your surgeon???s office as soon as possible. ? Refer to your ???Preparing for Your Surgery/Procedure?? booklet or [email or web address] if you have questions. Contact the Pre-Admission Testing department at [phone] or your surgeon's office with any questions that are not answered. ? Eating and drinking before surgery: Adult Patients: No food or drink for 8 hours prior to surgery check in time. ONLY plain water is allowed up to 2 hours before surgery arrival time. A sip of water with morning medications is acceptable. ON THE DAY OF SURGERY: ? DO bring your ID, insurance card, medication list, and a small amount of mckeon for filling prescriptions and any medical co-pays. ? Do NOT wear any jewelry, (including rings, earrings, or mouth, tongue, or body piercings). Metal jewelry could cause constriction, amputation, or pollock. Loose or bulky things in your mouth can be unsafe and result in breathing problems. ? DO bring glasses if you wear contacts and other assistance items such as oxygen, inhaler, cane, walker, etc. ? Do NOT bring valuables, credit cards, or large amounts of mckeon. ? Do NOT wear lotion or strong-smelling fragrance (perfume, cologne, cream or lotion). ? ARRANGE FOR A RIDE: If you are scheduled to go home the same day of surgery, a responsible adult MUST drive or accompany you home in a car, cab, shared ride service, or Metro-van. You will not be allowed to drive yourself home or travel home alone. Your surgery may be cancelled if you do not have a ride. A responsible adult must stay with you after surgery. [facility] if you need transportation assistance or have concerns about going home [phone]. Post-op Nausea and Vomiting: A risk of anesthesia is nausea and/or vomiting (PONV). Certain patients are at higher risk than others. Talk to your anesthesiologist about the plan to minimize this risk. In general, it is best to startwith only ice chips or small sips of water, then progress to clear, non-alcoholic fluids. You do not have to eat if you do not feel like it; fluids are the most important in the first 24 hours after surgery. If you start to eat, try bananas, applesauce, plain toast, saltine crackers, or broth; avoid fried or fatty foods. Make sure to eat something about 15 minutes before taking any pain medications. Seek medical attention for any prolonged PONV and signs of dehydration. ? PLEASE BE ON TIME. A late arrival may result in the cancellation/delay of your surgery. [facility]; it is our pleasure to care for you documented in this encounter Progress Notes * Heather Lorenz APRN-CNP - 05/02/2025 1:30 PM EST Images from the original note were not included. Pre-Admission Testing Consultation Doug Gomez, [id number] 35 year old Female 05/03/2025 HIGH ANXIETY Consult placed to [facility] by Dr. Fuentes due to significant PMH of asthma, anemia [facility] Triage Risk Score Total Score: 6 6 The case is high risk; it is over 4 hours long or is a hysterectomy, joint replacement, colon, spine, or neuro procedure. Doug Gomez is scheduled for Exploration L5-S1 fusion with removal hardware, reinstrumentation, repair dural tear on 05/10/2025. Pre-Op diagnosis of: Pre-Op Diagnosis Codes: * Failed back 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] HISTORY OF PRESENT ILLNESS: patient presents to [facility] s/p lumbar surgery x2. She endorses constant pain and BLE weakness. Patient is here for pre-admission optimization and education prior to surgery. RECENT ILLNESS: Serious illness or hospitalization within the last six months. Yes 12/03-12/04/2024 @[facility] HOSPITAL COURSE: Patient is a 34-year-old female who is status [place]S1 [place] to the [place] today at [place] for a wound exploration after being seen in office with complaints of intermittent headache. In surgery it was revealed a durotomy that was repaired without complication. She was slow to wake up from anesthesia postoperatively but was having LE weakness with inability to feel her legs. CT head completed at [place] that was negative. Patient transferred [facility] For stat imaging of the brain and entire spine. MRI imaging was unremarkable. Patient was then able to move upper and lower extremities with no issue. Patient was seen on 12/04/24 and denied any headaches or weakness. Patient was ready to go home with drain management to be done by family. STOP BANG: STOP-BANG Row Name 05/02/25 6364 History of sleep apnea? No Snoring No Tired/Fatigued No Observed Apnea No Pressure: Hypertension No BMI greater than 35 0 Age greater than 50 0 Neck circ greater than 40cm (15.75 ) No Gender male? 0 Score 0 ALLERGIES: Allergies[1] Problem List[2] SOCIAL HISTORY: reports current drug use. Drug: Marijuana/THC. 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 Comment: LMP 04/05/2025- spotting for few days, will come every few months x2 TL Neuro/Psych (+) depression, anxiety/panic attacks Comment: Headache migraines PTSD Paresthesia in hands & BLE Cardiovascular Comment: POTS last syncopal episode was between -11/2024 Palpitations daily GI/Hepatic/Renal (+) GERD well controlled, PUDnephrolithiasis (passed on own) Comment: Liver mass s/p biopsy- benign Colitis Heme/Other (+) anemia Other ROS: Failed back syndrome Premie- 2 months early T&A PREVIOUS ANESTHETIC COMPLICATIONS: no history of difficult intubation , adverse effects of anesthetic agents, or family history of anesthesia-related problems, nor malignant hyperthermia and slow to wake up CURRENT MEDICATION LIST: Current Outpatient Medications Medication Sig Dispense Refill budesonide-formoterol (Symbicort) 80-4.5 MCG/ACT inhaler Inhale 2 Puffs by mouth 2 times daily. ALBUTEROL INHALATION Inhale by mouth. montelukast (SINGULAIR) 10 MG tablet TAKE 1 TABLET BY MOUTH EVERY DAY FOR 30 DAYS; Duration: 30 cyclobenzaprine (FLEXERIL) 10 MG tablet TAKE 1 TABLET BY MOUTH THREE TIMES A DAY FOR 30 DAYS lidocaine (LIDODERM) 5 % patch Place 1 Patch on the skin every 24 hours. No current facility-administered medications for this visit. HEIGHT: 5' .9 WEIGHT: No prior weight on file BMI: 22.18 VITAL SIGNS: BP 121/72 Pulse 70 Temp 97.5 ??F (36.4 ??C) Resp 16 Ht 1.547 m (5' 0.9 ) Wt 53.1 kg (117 lb) SpO2 100% BMI 22.18 kg/m?? PAIN ASSESSMENT: Severity: 7 Location: lower back- right side AIRWAY EXAM: Mallampati score: 2 TMD: Adequate Neck Extension/ Flexion: Adequate Mouth Opening: Adequate Dentition: Intact Micrognathia/Overbite: No FUNCTIONAL CAPACITY: <4 mets and Uses a walker PHYSICAL EXAM: Eyes: Wears glasses ENT: Mucosa normal, Neck supple, Carotids normal pulse without bruits, and Thyroid normal Pulmonary: Chest clear to auscultation bilaterally Cardiovascular: RRR with S1S2 and No murmurs, gallops, or rubs Abdomen: Deferred Extremities: No gross or obvious abnormalities Neurologic: Awake, alert, oriented and No motor deficits Psychiatric: alert and oriented to person, place and time, Appropriate mood/affect Skin: Deferred Assessment and Plan: 1) Pre-Admission Evaluation 2) Pre-Op Diagnosis Codes: * Failed back 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] 3) low functional capacity- cardiology consult placed, ok to proceed as planned LABS, TESTS, CONSULTS ORDERED: Orders & Meds Signed During This Encounter Basic Metabolic Panel Complete Blood Count W/Diff Hepatic Function Panel Partial Thromboplastin Time Prothrombin Time & INR Confirmation Blood Type Type And Screen montelukast (SINGULAIR) 10 MG tablet budesonide-formoterol (Symbicort) 80-4.5 MCG/ACT inhaler ALBUTEROL INHALATION Complete Blood Count W/Diff E-Consult to Cardiology LABORATORY DATA: BMP (last 3 years, up to 8 values) 05/02/2025 1:31 PM Na 137 K 4.5 Cl 104 CO2 25 Gap 13 Glu 83 BUN 12 Cr 0.75 Ca 9.4 eGFR 107 CBC (last 3 years, up to 8 values) 05/02/2025 1:31 PM WBC 7.1 RBC 4.41 Hgb 10.3 Hct 31.4 MCV 71 RDW 16.9 Plt 225 LFT's (last 3 years, up to 8 values) 05/02/2025 1:31 PM T Prot 7.0 Albumin 4.5 D Bili <0.05 T Bili 0.2 Alk Phos 55 ALT 8 AST 14 PT/PTT/INR (last 3 years, up to 8 values) 05/02/2025 1:31 PM aPTT 29 INR 0.93 TESTS REVIEWED: I personally reviewed and interpreting and findings were: CXRay: Chest radiography date: Not Found EK12/03/2024 @[facility] Normal sinus rhythm with sinus arrhythmia Incomplete right bundle branch block Borderline ECG No previous ECGs available Confirmed by ALIE ARAUZ ([id number]) on 12/03/2024 7:30:17 PM ECHO: Echocardiogram date: Not Found Stress test date: Last Cardiac Stress Test: Not Found Patient is medically optimized for surgery. This note will be forwarded to the referring provider. Patient should follow up with referring provider. Patient has been directed to discuss specific recovery questions with his/her surgeon/proceduralist. Attestation: I have spent 36 total minutes. Visit activities: - preparing to see the patient (e.g., review of tests) - obtaining and/or reviewing separately obtained history - performing a medically appropriate examination and/or evaluation - counseling and educating the patient/family/caregiver - ordering medications, tests, or procedures - referring and communicating with other health day care director (when not separately reported) - documenting clinical information in the electronic or other health record Chlorhexidine soap/wipes and instructions given to patient. Interviewer signature: SAMMY Jacobson 12:05 PM 05/03/2025 [1] Allergies Allergen Reactions Hydrocodone-Acetaminophen [2] Patient Active Problem List Diagnosis Code Failed back surgical syndrome M96.1 Anemia D64.9 Asthma J45.909 Calculus of kidney N20.0 Gastroesophageal reflux disease with esophagitis K21.00 Hypertension I10 Liver mass R16.0 Migraine headache G43.909 Posttraumatic stress disorder F43.10 [3] Social History Tobacco Use Smoking status: Every Day Types: Cigarettes Smokeless tobacco: Never Tobacco comments: vapes Substance Use Topics Alcohol use: Not Currently Drug use: Yes Types: Marijuana/THC Comment: daily [4] No past medical history on file. [5] No past surgical history on file. documented in this encounter Plan of Treatment DateTypeDepartmentCare Team (Latest Contact Info)Srxoevkofhw99/25/2025 11:00 AM ESTOffice Visit [facility] [address] [place], [place] [phone] Pj Fuentes MD [address] [place] [address] documented as of this encounter Procedures Procedure NamePriorityDate/TimeAssociated DiagnosisCommentsCONFIRMATION ABO/RH Vgyzznc0405/02/2025 1:43 PM EST Preop testing CBC WITH QEHILPELBOKNOlgeyjz09/04/2025 1:31 PM EST Preop testing COMPLETE BLOOD COUNT W/LOCNQzuvkou51/04/2025 1:31 PM EST Preop testing HC HEPATIC FUNCTION KJFGWIhnkdfm39/04/2025 1:31 PM EST Preop testing BASIC METABOLIC EXKLYDqkbwbd74/04/2025 1:31 PM EST Preop testing TYPE AND FIXRLOHmyztkr26/04/2025 1:31 PM EST Preop testing PROTHROMBIN TIME AND UYELxscicr75/04/2025 1:31 PM EST Preop testing PARTIAL THROMBOPLASTIN IFBXJionmeq64/04/2025 1:31 PM EST Preop testing documented in this encounter Results * CONFIRMATION ABO/RH (05/02/2025 1:43 PM EST)ComponentValueRef RangeTest Method Analysis TimePerformed AtPathologist SignatureABO Rh TypeA Txelpaqp72/04/2025 4:13 PM [facility] PATHOLOGY LABORATORYSpecimen Expiration [id number] 05/02/2025 4:13 PM [facility] PATHOLOGY LABORATORYABO Rh/Libby/TXRX HistoryA Stdcmdgc90/04/2025 4:13 PM [facility] PATHOLOGY LABORATORYSpecimen (Source) Anatomical Location / LateralityCollection Method / VolumeCollection Time Received TimeBloodBLOOD SPECIMEN / UnknownVenipuncture / Zyskdyv9005/02/2025 1:43 PM EST05/02/2025 3:32 PM EST Narrative Authorizing ProviderResult TypeResult StatusHeather Lorenz PRINCIPAL PROCESS ENGINEER-CNPEC BLOOD BANKFinal ResultPerforming OrganizationAddressCity/State/ZIP CodePhone Number [facility] PATH[facility] LABORATORY [address] [place] [phone] * (ABNORMAL) CBC WITH DIFFERENTIAL (05/02/2025 1:31 PM EST)ComponentValueRef RangeTest MethodAnalysis TimePerformed AtPathologist SignatureWBC7.14.5 - 11.5 K/uL05/02/2025 3:49 PM ESTS PATHOLOGY LABORATORYRBC4.414.00 - 5.20 M/uL 05/02/2025 3:49 PM ESTS PATHOLOGY MFDSDGKVCMGgfuneikhr10.3(L)12.0 - 15.0 g/dL05/02/2025 3:49 PM [facility] PATHOLOGY IDNGCSRCEVHrjlzgfrbc87.4(L)36.0 - 46.0 %05/02/2025 3:49 PM [facility] PATHOLOGY NCUPOUXXISWNI98(L)80 - 100 fL05/02/2025 3:49 PM [facility] PATHOLOGY LKUVJGOHMXZSP22.5(L)26.0 - 34.0 pg05/02/2025 3:49 PM [facility] PATHOLOGY JLXDNFPBYCBCTW02.932.0 - 35.9 g/dL05/02/2025 3:49 PM [facility] PATHOLOGY CVPKACFBCMLktmpixq897953 - 400 K/uL05/02/2025 3:49 PM [facility] PATHOLOGY LABORATORYRDW-CV16.9(H)11.5 - 14.5 %05/02/2025 3:49 PM [facility] PATHOLOGY RWKGAZNDEQMLQ57.7(H)7.5 - 11.2 fL05/02/2025 3:49 PM [facility] PATHOLOGY ELHCDWKSLAWrljthjsfuw73.831.0 - 76.0 %05/02/2025 3:49 PM [facility] PATHOLOGY LABORATORYNeutrophil #4.271.50 - 8.00 K/uL05/02/2025 3:49 PM [facility] PATHOLOG[facility] FSMBRVMNOLLijagjpcokd74.624.0 - 44.0 %05/02/2025 3:49 PM [facility] PATHOLOGY LABORATORYLymphocytes #2.181.00 - 4.80 K/uL05/02/2025 3:49 PM [facility] PATHOLOGY LABORATORYMonocytes7.12.0 - 11.0 %05/02/2025 3:49 PM [facility] PATHOLOGY LABORATORYMonocyte #0.510.20 - 1.00 K/uL05/02/2025 3:49 PM [facility] PATHOLOGY LABORATORYEosinophil1.70.1 - 4.0 %05/02/2025 3:49 PM [facility] PATHOLOGY LABORATORYEosinophil #0.120.00 - 0.70 K/uL05/02/2025 3:49 PM [facility] PATHOLOGY LABORATORYBasophils0.8<=1.9 %05/02/2025 3:49 PM [facility] Basophil #0.060.00 - 0.20 K/uL05/02/2025 3:49 PM [facility] Specimen (Source)Anatomical Location / LateralityCollection Method / Volume Collection TimeReceived TimeBloodBLOOD SPECIMEN / UnknownVenipuncture / Pugebsk1505/02/2025 1:31 PM EST05/02/2025 3:43 PM EST Narrative Authorizing ProviderResult TypeResult StatusHeather Lorenz APRN-[facility] LAB ORDER ONLYFinal ResultPerforming OrganizationAddressCity/State/ZIP CodePhone Number [facility] [address] [place] [phone] * TYPE AND SCREEN (05/02/2025 1:31 PM EST)ComponentValueRef RangeTest Method Analysis TimePerformed AtPathologist SignatureABO Rh TypeA Orcmgesz71/04/2025 4:15 PM [facility] PATHOLOGY LABORATORYAb Screen PscpslKkvrddxo89/04/2025 4:15 PM [facility] PATHOLOGY LABORATORYSpecimen Expiration [id number]/04/2025 4:15 PM [facility] PATHOLOGY LABORATORYABO Rh/Libby/TXRX HistoryNo Previous Results 05/02/2025 4:15 PM [facility] PATHOLOGY LABORATORYComment:Patient does not require a 2nd sample drawn prior to surgery date of 05/10/25. Specimen meets Blood Bank's Pre-Surgical Protocol and is valid within 30 days from date of collection but will atmidnight on the day of approved Surgery.Specimen (Source)Anatomical Location / LateralityCollection Method / VolumeCollection TimeReceived TimeBloodBLOOD SPECIMEN / UnknownVenipuncture / Cvaowmu9105/02/2025 1:31 PM EST05/02/2025 3:32 PM EST Narrative Authorizing ProviderResult TypeResult StatusHeather Lorenz APRN-[facility] BLOOD BANKFinal ResultPerforming OrganizationAddressCity/State/ZIP CodePhone Number [facility] [address] [place] [phone] * PROTHROMBIN TIME AND INR (05/02/2025 1:31 PM EST)ComponentValueRef RangeTest MethodAnalysis TimePerformed AtPathologist DgkqrytcjMsrthpe13.49.7 - 12.9 sec 05/02/2025 4:22 PM [facility] PATHOLOGY LABORATORYINR0.930.90 - 1.10107/02/2024 4:22 PM [facility] PATHOLOGY LABORATORYSpecimen (Source)Anatomical Location / LateralityCollection Method / VolumeCollection TimeReceived TimeBloodBLOOD SPECIMEN / UnknownVenipuncture / Joygefj4505/02/2025 1:31 PM EST05/02/2025 3:43 PM EST Narrative Authorizing ProviderResult TypeResult StatusHeather Byerstrevin PRINCIPAL PROCESS ENGINEER-CNP98 GENERAL LABFinal ResultPerforming OrganizationAddressCity/State/ZIP CodePhone Number [facility] [address] [place], [place] [phone] * PARTIAL THROMBOPLASTIN TIME (05/02/2025 1:31 PM EST)ComponentValueRef Range Test MethodAnalysis TimePerformed AtPathologist MeqoyqjbucOFI3012 - 37 sec 05/02/2025 4:22 PM [facility] PATHOLOGY LABORATORYSpecimen (Source)Anatomical Location / LateralityCollection Method / VolumeCollection TimeReceived Time BloodBLOOD SPECIMEN / UnknownVenipuncture / Awbywxw3905/02/2025 1:31 PM EST 05/02/2025 3:43 PM EST Narrative Authorizing ProviderResult TypeResult StatusHeather Lorenz PRINCIPAL PROCESS ENGINEER-CNP98 GENERAL LABFinal ResultPerforming OrganizationAddressCity/State/ZIP CodePhone Number [facility] [address] [place], [place] [phone] * (ABNORMAL) HEPATIC FUNCTION PANEL (05/02/2025 1:31 PM EST)ComponentValueRef RangeTest MethodAnalysis TimePerformed AtPathologist SignatureAlbumin4.53.5 - 5.7 g/dL05/02/2025 4:14 PM [facility] PATHOLOGY LABORATORYBilirubin, Direct<0.05 0.03 - 0.18 mg/dL05/02/2025 4:14 PM [facility] PATHOLOGY LABORATORYBilirubin, Total0.2(L)0.3 - 1.0 mg/dL05/02/2025 4:14 PM [facility] Comment:Note updated reference range.Alkaline Djhkcwsoone3417 - 104 IU/L 05/02/2025 4:14 PM [facility] PATHOLOGY LABORATORYALT (SGPT)87 - 52 IU/L107/02/2024 4:14 PM [facility] PATHOLOGY LABORATORYAST (SGOT)1413 - 39 IU/L107/02/2024 4:14 PM [facility] PATHOLOGY LABORATORYProtein, Total7.06.1 - 7.9 g/dL05/02/2025 4:14 PM [facility] PATHOLOGY LABORATORYComment:Note updated reference range.Specimen (Source)Anatomical Location / LateralityCollection Method / VolumeCollection TimeReceived TimeBloodBLOOD SPECIMEN / UnknownVenipuncture / Qbgqcar3805/02/2025 1:31 PM EST05/02/2025 3:43 PM EST Narrative Authorizing ProviderResult TypeResult StatusHeather Lorenz PRINCIPAL PROCESS ENGINEER-CNP98 GENERAL LABFinal ResultPerforming OrganizationAddressCity/State/ZIP CodePhone Number [facility] [address] [place] [phone] * BASIC METABOLIC PANEL (05/02/2025 1:31 PM EST)ComponentValueRef RangeTest MethodAnalysis TimePerformed AtPathologist LgttqjxrlSdndaha6619 - 109 mg/dL 05/02/2025 4:14 PM [facility] PATHOLOGY BPVXJERUIINazxpk097083 - 145 mmol/L 05/02/2025 4:14 PM [facility] PATHOLOGY LABORATORYPotassium4.53.5 - 5.0 mmol/L 05/02/2025 4:14 PM [facility] PATHOLOGY LABORATORYCarbon Ajrodmb8753 - 31 mmol/L 05/02/2025 4:14 PM [facility] PATHOLOGY HWXJUDWWQEHcsvlafk55303 - 107 mmol/L 05/02/2025 4:14 PM [facility] PATHOLOGY LABORATORYBlood Urea Sdlvpzzy943 - 25 mg/dL05/02/2025 4:14 PM [facility] PATHOLOGY LABORATORYCreatinine0.750.60 - 1.20 mg/dL05/02/2025 4:14 PM [facility] PATHOLOGY LABORATORYCalcium9.48.6 - 10.3 mg/dL 05/02/2025 4:14 PM [facility] PATHOLOGY LABORATORYAnion Qeg7660 - 4:14 PM [facility] PATHOLOGY LABORATORYEstimated GFR (CKD-EPI)107>=60 mL/min/1.75obh0207/02/2024 4:14 PM [facility] PATHOLOGY LABORATORYComment: 2020 CKD EPI Equation using Creatinine without Race Comment: ??Estimated glomerular filtration rate (eGFR) is calculated without a race coefficient. Values should be interpreted in the context of the patient's full clinical presentation. Reference: 1. Low De La O, Lazaro M, Joseph CASTILLO, et al.. A Unifying Approach for GFR Estimation: Recommendations of the NKF-ASN Task Force on Reassessing the Inclusion of Race in Diagnosing Kidney Disease. AmericanJournal of Kidney Diseases 2021;79(2):268-88.e1. 2. N Engl J Med 1 Vol. 385 Issue 19 Pages 9807-9248 Specimen (Source)Anatomical Location / LateralityCollection Method / Volume Collection TimeReceived TimeBloodBLOOD SPECIMEN / UnknownVenipuncture / Unknown 05/02/2025 1:31 PM EST05/02/2025 3:43 PM EST Narrative Authorizing ProviderResult TypeResult StatusHeather Lorenz PRINCIPAL PROCESS ENGINEER-CNP98 GENERAL LABFinal ResultPerforming OrganizationAddressCity/State/ZIP CodePhone Number [facility] [address] [place] [address] documented in this encounter Visit Diagnoses Diagnosis Preop testing- Primary Preoperative examination, unspecified Body mass index (BMI) 22.0-22.9, adult documented in this encounter Care Teams Team MemberRelationshipSpecialtyStart DateEnd Pj Fuentes MD [address] [place] [address] PhysicianOrthopaedic Surgery01/28/25documented as of this encounter
--- OUTSIDE RECORDS SUMMARY | 2025-05-10 05:50 | XMS_ITS | Encounter Summary ---
Author Organization [facility] Address [address] [place], [place] [address] Care Team Providers Care Gold Burnisher Name Role Phone Pj Fuentes MD Unavailable [phone] Heather Lorenz APRN-SPEECH INSTRUCTOR Unavailable [phone] Reason for Visit * Auth/Cert (Routine)SpecialtyDiagnoses / ProceduresReferred By ContactReferred To ContactGeneral Surgery Diagnoses Failed back surgical syndrome Failed back 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] Procedures EXPLORATION, SPINAL FUSION REPAIR, DURAL/CSF LEAK, NOT REQUIRING LAMINECTOMY REMOVAL, POSTERIOR NONSEGMENTAL INSTRUMENTATION REMOVAL, POSTERIOR SEGMENTAL INSTRUMENTATION POSTERIOR SEGMENTAL INSTRUMENTATION; 3-6 VERTEBRAL SEGMENTS Exploration L5-S1 fusion with removal hardware, reinstrumentation, repair dural tear Pj Fuentes MD [address] [place] [address] Phone: tel: fax: [facility] [address] [place] [phone] Phone: tel: Referral IDStatusReasonStart DateExpiration DateVisits RequestedVisits [id number] Encounter Details DateTypeDepartmentCare Team (Latest Contact Info)Gyxmyqumvez37/12/2025 5:50 AM EST - 05/12/2025 3:16 PM ESTHospital Encounter [place] [id number] Pj Fuentes MD [address] [place], [place] [address] Failed back surgical syndrome (Primary Dx) Discharge Disposition: Discharge to Home Social History Tobacco UseTypesPacks/DayYears UsedDateSmoking Tobacco: Every DayCigarettes Smokeless Tobacco: Never Comments:vapes Alcohol UseStandard Drinks/WeekCommentsNot Currently0 (1 standard drink = 0.6 oz pure alcohol)[facility] UtilitiesAnswerDate RecordedIn the past 12 months has the [employer], oil, or water [employer] threatened to shut off services in your home?No05/10/2025Humiliation, Afraid, Rape, and Kick questionnaireAnswerDate RecordedFear of Current or Ex-PartnerNot on file05/10/2025Within the last year, have you been humiliated or emotionally abused in other ways by your partner or ex-partner?No05/10/2025Physically AbusedNot on file05/10/2025Sexually AbusedNot on file05/10/2025Hunger Vital SignAnswerDate RecordedWithin the past 12 months, you worried that your food would run out before you got the money to buymore. Never true05/10/2025Ran Out of Food in the Last YearNot on file05/10/2025PRAPARE - TransportationAnswerDate RecordedIn the past 12 months, has lack of transportation kept you from medical appointments or from getting medications?No 05/10/2025Lack of Transportation (Non-Medical)Not on file05/10/2025Housing Stability Vital SignAnswerDate RecordedIn the last 12 months, was there a time when you were not able to pay the mortgage or rent on time?No05/10/2025Number of Times Moved in the Last YearNot on file05/10/2025Homeless in the Last YearNot on file05/10/2025Utilities - HistoricalAnswerDate RecordedIn the past 12 months has the [employer], [employer], or water [employer] threatened to shut off services in your home?No05/10/2025Substance UseTypesUse/WeekCommentsYesMarijuana/THCdaily CommentsNoSex and Gender InformationValueDate RecordedSex Assigned at BirthNot on fileLegal PitYmcwwo74/02/2025 9:50 AM EDTGender IdentityNot on file Sexual OrientationNot on filedocumented as of this encounter Last Filed Vital Signs Vital SignReadingTime TakenCommentsBlood Ieutmmxe057/7505/12/2025 6:00 AM EST Atens617505/12/2025 9:28 AM WNKQnxdhkglxqw75.8 ??C (98.2 ??F)05/12/2025 6:00 AM ESTRespiratory Zmtd755507/12/2024 9:28 AM ESTOxygen Hdmerwtzji52%05/12/2025 9:28 AM ESTInhaled Oxygen Concentration--Vykmam99.1 kg (117 lb)05/10/2025 11:50 AM JZLAojham669.4 cm (5')05/10/2025 11:50 AM ESTBody Mass Index22.8505/10/2025 11:50 AM ESTdocumented in this encounter Discharge Instructions * Discharge Instructions* Eran Manzo MD - 05/12/2025 8:26 AM EST DISCHARGE INSTRUCTIONS Doug Gomez [id number] The following is a brief overview of your hospitalization. Some of the information contained on this summary may be confidential. This information should be kept in your records and should be shared with your regular doctor. Admission Date: 05/10/2025 Principal Diagnosis : @PRINCIPALPROBLEM@ Other Diagnosis: Patient Active Problem List Diagnosis Code Failed back surgical syndrome M96.1 Anemia D64.9 Asthma J45.909 Calculus of kidney N20.0 Gastroesophageal reflux disease with esophagitis K21.00 Hypertension I10 Liver mass R16.0 Migraine headache G43.909 Posttraumatic stress disorder F43.10 Attending physicians: Pj Carlisle MD Operations performed while hospitalized: L5-S1 revision fusion Treatment/wound care: Maintain dressings on your incisions for 7 days after surgery. On the 7th day, you may remove your dressings and leave your incisions open to air. Please visually inspect your wound(s) at least once daily. If the wound(s) are in a difficult to see location, please use a mirroror have someone else assist with visual inspection. If you have visible callie/sutures, please have them removed in our clinic 2 weeks after the date of surgery. Do not remove the callie/sutures onyour own. Return sooner or call if wound(s) or surrounding areas have increased swelling, pain, warmth, redness, or drainage that is thick, yellow and/or green. Medications: If you are being discharged with medications, please take them as prescribed. Watch for signs of adverse drug reactions such as confusion, dizziness, lightheadedness, rash, or any other concerning symptoms. If you suspect a drug reaction, stop taking the medication and seek immediate medical attention. Blood Clots: Ambulate frequently to decrease your risk of blood clots. You should be out of bed formore time than you are in bed. Pain Control: Try to maintain adequate management. You can take Tylenol for pain if not otherwise contraindicated. Percocet can be taken as prescribed as needed for breakthrough pain. Percocet is a narcotic, which can induce constipation. When taking narcotics, do not drive or make any important decisions as narcotics can impair your judgement. Please take docusate (Colace) when taking narcotics to prevent constipation. Percocet contains acetaminophen (Tylenol). You may not take more than 4000 mg of acetaminophen per day from all sources. Activity after Discharge: No heavy lifting, bending, or twisting. Do not lift, push or pull more than [address] or operate heavy machinery while taking narcotic pain medications as these medications can alter perception, impair judgement, and slow reaction times. Do not drive until you are cleared by your surgery team. Diet: Regular diet Follow-Up: Call [facility] during normal business hours for your follow up appointments. -Please call the clinic at [phone] to schedule your post-op follow-up appointment with Dr. Fuentes in 2 week(s) from the time of discharge. Please ask if you need to obtain any further imaging studies or blood work prior to your return visit. Weight Bearing: Weight bearing as tolerated. No heavy lifting, bending, or twisting Please schedule follow up with Urology as well for urinary retention. Please remember to discard old medication lists and to update your records with all healthcare providers and retail pharmacies. documented in this encounter Medications at Time of Discharge MedicationSigDispense QuantityRefillsLast FilledStart DateEnd Date docusate sodium (Colace) 100 MG capsule Take 1 Capsule by mouth 2 times daily. 60 Capsule 05/12/2025 2:41 PM EST05/12/2025 cyclobenzaprine (FLEXERIL) 10 MG tablet Take 1 Tablet by mouth 3 times daily as needed for Muscle spasms. 90 Tablet 2:41 PM EST05/12/2025 oxyCODONE-acetaminophen (PERCOCET) 5-325 mg per tablet Indications:Failed back surgical syndromeTake 1 Tablet by mouth every 6 hours as needed for Pain for up to 21 days. 84 Tablet 05/12/2025 2:41 PM EST budesonide-formoterol (Symbicort) 80-4.5 MCG/ACT inhaler Inhale 2 Puffs by mouth 2 times daily. ALBUTEROL INHALATION Inhale 1-2 Puffs by mouth every 6 hours as needed (SOB). montelukast (SINGULAIR) 10 MG tablet TAKE 1 TABLET BY MOUTH EVERY DAY FOR 30 DAYS; Duration: 30 cyclobenzaprine (FLEXERIL) 10 MG tablet Take 10 mg by mouth 3 times daily as needed for Muscle spasms.12/31/2024 lidocaine (LIDODERM) 5 % patch Place 1 Patch on the skin daily as needed for Pain.4documented as of this encounter Progress Notes * PerlitaKaylyn cruz RN - 05/12/2025 2:54 PM EST CM following, chart review complete. No social/ home concerns brought to CM's attention during hospital admission. Per PT consult, patient is anticipated to be functionally appropriate for discharge home with recommendations for Outpatient PT when deemed appropriate by MD. Per chart review patient will have / assistance at home. Patient/ family to arrange transportation to and from appointments as well as to home at discharge. Spine post OP appointment scheduled for 05/23/2025. CM to follow POC and assist with discharge planning and needs as warranted. Kaylyn MAGALLANES, bandage maker [employer] Chat Available Thursday-Thursday [phone] 05/12/25 1450 Assessment and Discharge Planning Evaluation READMISSION LESS THAN 30 DAYS No READMISSION RISK SCORE IS Low Risk INTERVIEWED Chart Review COGNITIVE STATUS Oriented FUNCTIONAL STATUS PRIOR TO ADMISSION Ambulates with medical coding specialist (cane, walker, etc.) (Rollator per chart review) HAS ADVANCE DIRECTIVE ON FILE No LIVING SITUATION Home with Family CONNECTED TO MENTAL HEALTH SERVICES Unknown CONNECTED TO COMMUNITY SERVICES Unknown CONNECTED TO SUBSTANCE ABUSE SERVICES Unknown ADMISSION INSURANCE Medicaid Medicaid [facility] [place] TRANSPORTATION TO AND/OR FROM APPOINTMENTS Family/Friend Provides Ride HOME OXYGEN No HOME HEALTH CARE PRIOR TO ADMISSION No DIALYSIS No DISCUSSSED WHAT HELP PATIENT WOULD NEED Yes (Patietn discussed during interdiciplinary rounds) SDOH Completed? Patient not assessed (Assess when pt able) DISCHARGE DISPOSITION Home * Eran Manzo MD - 05/12/2025 7:45 AM EST Images from the original note were not included. Orthopaedic Spine Progress Note S: No acute events overnight. Pain well controlled off HEALTH FACILITIES SURVEYOR. Denies CP, SOB, fevers. Jaramillo placed for retention. O: BP 116/75 (BP Location: left arm) Pulse 78 Temp 98.2 ??F (36.8 ??C) (Oral) Resp 16 Ht 5' (1.524 m) Wt 117 lb (53.1 kg) LMP 05/05/2025 SpO2 100% BMI 22.85 kg/m?? Intake/Output Summary (Last 24 hours) at 05/12/2025 0745 Last data filed at 05/11/2025 2320 Gross per 24 hour Intake 1303.4 ml Output 3420 ml Net -2116.6 ml BMP (last 3 years, up to 8 values) 05/02/2025 1:31 PM Na 137 K 4.5 Cl 104 CO2 25 Gap 13 Glu 83 BUN 12 Cr 0.75 Ca 9.4 eGFR 107 CBC (last 3 years, up to 8 values) 05/02/2025 1:31 PM WBC 7.1 RBC 4.41 Hgb 10.3 Hct 31.4 MCV 71 RDW 16.9 Plt 225 Gen: arousable, NAD, appropriately conversational Cardiac: RRR to peripheral palpation Resp: nonlabored on RA GI: soft, nondistended Incision closed with dermabond well approximated with no draiange Drain in place, holding suction L1: SILT L2: SILT Hip flexors 4-/5 Left; 3-/5 Right L3: SILT Knee extension 4/5 Left; 4/5 Right L4: SILT Tib Ant. (Dorsiflexion) 4/5 Left; 4/5 Right L5: SILT EHL 4/5 Left; 4/5 Right S1: SILT Planter flexion 4/5 Left; 3/5 Right Negative Clonus Bilaterally A/P: 35 year old female s/p L5-S1 revision fusion on 05/[address] Fuentes. Plan - Clear liquid diet, okay to advance as tolerated; Bowel regimen (Senna, Colace, and PRN Dulcolax). - Multimodal pain therapy; HEALTH FACILITIES SURVEYOR until POD1 then transition to POPM, pain management consulted - Continue mIVF until taking good PO - WB: WBAT, no spine precautions. Continue OT/PT therapies. No bending/lifting/twisting. - Maintain O2 sats > 92%. Encourage frequent IS. - ABx: perioperative ancef 24 hours - Toradol x2 doses postop - completed - No indication for transfusion - Continue SCDs, early ambulation, Hold home AC, No indication for Ppx in setting of spine surgery - Maintain PIVs; Maintain HV drain to gravity and please chart after each q8 hour shift - No glycemic issues - Continue all home medications - Uprights POD2 completed - TCC/SW consulted, dispo pending PT/pain control/drain This plan was discussed with the attending, Dr. Fuentes. Eran Manzo MD Orthopaedic Surgery PGY-2 Epic chat preferred For questions/issues: Patient will be followed by Team A at 0700 the day following initial consultation. Between 5pm-7am, weekends, and holidays or in the case of emergency please page ortho consult pagerwith urgent/emergent issues, [phone]. Ortho Team A: Latoya Mcdonald, PGY-2 Eran Manzo, PGY-2 Ortho Team B: Sherry Leal, PGY-3 Alice Choe, PGY-1 Ortho Elective Team: Bryant Ojeda PGY-3 Prateek Fung, PGY-2 Hand Team: Rain Puentes, PGY-4 Jorge A Chance DO, PGY-4 * Cliff Javier PharmD - 05/11/2025 12:10 PM EST Pharmacist Admission Medication Reconciliation Name: Doug Gomez : 1990 Admission Date: 05/10/2025 5:50 AM Comprehensive medication reconciliation was completed by pharmacist on 05/11/25 at 1000. The following sources were used to confirm patients medication list: Patient and Family. Patient was interviewed for accuracy of home medications taken. Allergies: Allergies as of 03/22/2025 - Verified 03/16/2025 Allergen Reaction Noted Hydrocodone-acetaminophen 05/10/2021 Preferred Pharmacy: Preferred pharmacy: [id number] [place], [place] - [address] [place] [address]; phone number [phone]; fax number [phone] Would patient like medications filled by [facility] [id number]-eu-[id number] program at discharge? Yes Patient manages own medications: Yes Patient reports taking medication 100% of the time Prior to Admission Medication List: Medications Prior to Admission Medication Sig Dispense Refill Last Dose/Taking budesonide-formoterol (Symbicort) 80-4.5 MCG/ACT inhaler Inhale 2 Puffs by mouth 2 times daily. Past Week ALBUTEROL INHALATION Inhale 1-2 Puffs by mouth every 6 hours as needed (SOB). Past Week montelukast (SINGULAIR) 10 MG tablet TAKE 1 TABLET BY MOUTH EVERY DAY FOR 30 DAYS; Duration: 30 Past Week cyclobenzaprine (FLEXERIL) 10 MG tablet Take 10 mg by mouth 3 times daily as needed for Muscle spasms. Past Week lidocaine (LIDODERM) 5 % patch Place 1 Patch on the skin daily as needed for Pain. Past Week The following are changes made to patient's prior to admission medication list based on medication review by pharmacist. Not Taking: -- n/a *Please review the above medications for appropriateness to delete and/or remove from patient home medication list Added: --n/a Taking Differently than Prescribed: -- Lidocaine patches daily > Patient takes PRN -- Cyclobenzaprine TID > Patient takes PRN -- Albuterol > Patient takes PRN Please contact pharmacy with any additional question or concerns. Cliff Javier, PharmD, PharmD Clinical Staff Pharmacist [phone] * Davis Bray RN - 05/11/2025 8:52 AM EST Patient is requesting to be straight cathed, I am reaching out to the provider because she has no orders for caths or ongoing bladder scans. 917 Bladder scan revealed 988ml. I paged the Ortho Specialty Resident Pager. * Eran Manzo MD - 05/11/2025 6:16 AM EST Images from the original note were not included. Orthopaedic Spine Progress Note S: No acute events overnight. Pain well controlled on HEALTH FACILITIES SURVEYOR. Denies CP, SOB, fevers. Straight cath for 950 cc. O: BP (P) 137/78 (BP Location: right arm) Pulse 59 Temp (P) 98.3 ??F (36.8 ??C) (Oral) Resp (P) 18 Ht 5' (1.524 m) Wt 117 lb (53.1 kg) LMP 05/05/2025 SpO2 99% BMI 22.85 kg/m?? Intake/Output Summary (Last 24 hours) at 05/11/2025 0616 Last data filed at 05/11/2025 0607 Gross per 24 hour Intake 4060.55 ml Output 1000 ml Net 3060.55 ml BMP (last 3 years, up to 8 values) 05/02/2025 1:31 PM Na 137 K 4.5 Cl 104 CO2 25 Gap 13 Glu 83 BUN 12 Cr 0.75 Ca 9.4 eGFR 107 CBC (last 3 years, up to 8 values) 05/02/2025 1:31 PM WBC 7.1 RBC 4.41 Hgb 10.3 Hct 31.4 MCV 71 RDW 16.9 Plt 225 Gen: arousable, NAD, appropriately conversational Cardiac: RRR to peripheral palpation Resp: nonlabored on RA GI: soft, nondistended Incision closed with dermabond well approximated with no draiange Drain in place, holding suction L1: SILT L2: SILT Hip flexors 4-/5 Left; 2/5 Right L3: SILT Knee extension 4/5 Left; 4/5 Right L4: SILT Tib Ant. (Dorsiflexion) 4/5 Left; 4/5 Right L5: SILT EHL 4/5 Left; 4/5 Right S1: SILT Planter flexion 4/5 Left; 3/5 Right Negative Clonus Bilaterally A/P: 35 year old female s/p L5-S1 revision fusion on 05/[address] Fuentes. Plan - Clear liquid diet, okay to advance as tolerated; Bowel regimen (Senna, Colace, and PRN Dulcolax). - Multimodal pain therapy; HEALTH FACILITIES SURVEYOR until POD1 then transition to POPM, pain management consulted - Continue mIVF until taking good PO - WB: WBAT, no spine precautions. Continue OT/PT therapies. No bending/lifting/twisting. - Maintain O2 sats > 92%. Encourage frequent IS. - ABx: perioperative ancef 24 hours - Toradol x2 doses postop - completed - No indication for transfusion - Continue SCDs, early ambulation, Hold home AC, No indication for Ppx in setting of spine surgery - Maintain PIVs; Maintain HV drain to gravity and please chart after each q8 hour shift - No glycemic issues - Continue all home medications - Uprights POD2 - TCC/SW consulted, dispo pending PT/pain control/drain This plan was discussed with the attending, Dr. Fuentes. Eran Manzo MD Orthopaedic Surgery PGY-2 Epic chat preferred For questions/issues: Patient will be followed by Team A at 0700 the day following initial consultation. Between 5pm-7am, weekends, and holidays or in the case of emergency please page ortho consult pagerwith urgent/emergent issues, [phone]. Ortho Team A: Latoya Mcdonald, PGY-2 Eran Manzo PGY-2 Ortho Team B: Sherry Leal, PGY-3 Alice Choe, PGY-1 Ortho Elective Team: Bryant Ojeda PGY-3 Prateek Fung, PGY-2 Hand Team: Rain Puentes, PGY-4 Jorge A Chance DO, PGY-4 * Marcos Huerta, RN - 05/10/2025 9:10 AM EST patient prone on karolyn with posts; bilateral arms extended out, palms facing down in anatomical position, padded with arm cradles, covered with blanket, and secured to arm board with safety straps;blanket between safety belt and patient; bilateral legs elevated with pillows x3 under legs; bilateral SCD's on and running; bilateral ankles padded with nerve protectors; bilateral feet free floating; anatomical alignment confirmed with surgical attending Skin interventions include: Mepilex on bilateral knees, bilateral iliac crest, bilateral chest, chin, bridge of nose, cheek bones, and forehead; no points of pressure directly on skin documented in this encounter H&P Notes * Jann Fung MD - 05/10/2025 6:20 AM EST Images from the original note were not included. Surgical History and Physical [employer] [facility] [id number] Name: Doug Gomez : 1990 35 year old CSN: [id number] Attending: Pj Fuentes MD Date of Admission: No admission date for patient encounter. Room/Bed: Main OR/PeriOp Planned Procedure: Procedure(s): Exploration L5-S1 fusion with removal hardware, reinstrumentation, repair dural tear HPI: Doug Gomez is a 35 year old female with Pre-Op Diagnosis Codes: * Failed back 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]. Past Medical History: Medical History[1] Past Surgical History: There is no previous surgical history on file. Medications: No current facility-administered medications for this encounter. Current Outpatient Medications Medication Sig Dispense Refill [...] Patch on the skin every 24 hours. Family History: Family History[2] Social History: Social History[3] Allergies: Hydrocodone-acetaminophen Vitals Signs: There were no vitals taken for this visit. ROS: Denies fever, chills, chest pain, SOB, palpitations. Objective Physical Exam: Gen: NAD Eyes: Deferred Pulm: Deferred CV: Deferred Abd: Deferred Neuro: Awake, alert, oriented Skin: No gross or obvious abnormalities on visible skin Psych: Appropriate mood/affect Imaging: Deferred Laboratory Values and Test Results: Results for orders placed or performed in visit on 05/02/25 (from the past 24489 hours) CBC WITH DIFFERENTIAL Collection Time: 05/02/25 1:31 PM Result Value Ref Range WBC 7.1 4.5 - 11.5 K/uL RBC 4.41 4.00 - 5.20 M/uL Hemoglobin 10.3 (L) 12.0 - 15.0 g/dL Hematocrit 31.4 (L) 36.0 - 46.0 % MCV 71 (L) 80 - 100 fL MCH 23.5 (L) 26.0 - 34.0 pg MCHC 32.9 32.0 - 35.9 g/dL Platelet 225 150 - 400 K/uL RDW-CV 16.9 (H) 11.5 - 14.5 % MPV 11.7 (H) 7.5 - 11.2 fL Neutrophils 59.8 31.0 - 76.0 % Neutrophil # 4.27 1.50 - 8.00 K/uL Lymphocytes 30.6 24.0 - 44.0 % Lymphocytes # 2.18 1.00 - 4.80 K/uL Monocytes 7.1 2.0 - 11.0 % Monocyte # 0.51 0.20 - 1.00 K/uL Eosinophil 1.7 0.1 - 4.0 % Eosinophil # 0.12 0.00 - 0.70 K/uL Basophils 0.8 <=1.9 % Basophil # 0.06 0.00 - 0.20 K/uL *Note: Due to a large number of results and/or encounters for the requested time period, some results have not been displayed. A complete set of results can be found in Results Review. BMP (last 3 years, up to 8 values) 05/02/2025 1:31 PM Na 137 K 4.5 Cl 104 CO2 25 Gap 13 Glu 83 BUN 12 Cr 0.75 Ca 9.4 eGFR 107 Results for orders placed or performed in visit on 05/02/25 (from the past 8760 hours) HEPATIC FUNCTION PANEL Collection Time: 05/02/25 1:31 PM Result Value Ref Range Albumin 4.5 3.5 - 5.7 g/dL Bilirubin, Direct <0.05 0.03 - 0.18 mg/dL Bilirubin, Total 0.2 (L) 0.3 - 1.0 mg/dL Alkaline Phosphatase 55 34 - 104 IU/L ALT (SGPT) 8 7 - 52 IU/L AST (SGOT) 14 13 - 39 IU/L Protein, Total 7.0 6.1 - 7.9 g/dL ASSESSMENT & PLAN Assessment: Doug Gomez is a 35 year old female with Pre-Op Diagnosis Codes: * Failed back 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]. Plan: I have personally reviewed the patient's medical history and performed the physical examination below immediately before the procedure. Medications, allergies, and pertinent laboratory and diagnostictests were also reviewed at this time. Procedure is still indicated. Yes Seen an evaluated by Jann Fung MD. Discussed with attending jP Fuentes MD. Jann Fung MD 05/09/25 5:43 PM [1] No past medical history on file. [2] No family history on file. [3] Social History Socioeconomic History Marital status: Single Tobacco Use Smoking status: Every Day Types: Cigarettes Smokeless tobacco: Never Tobacco comments: vapes Substance and Sexual Activity Alcohol use: Not Currently Drug use: Yes Types: Marijuana/THC Comment: daily Cosigned by Pj Fuentes MD at 05/10/2025 9:36 AM EST documented in this encounter Consult Notes * Marcelina Koroma DO - 05/12/2025 7:32 AM ESTAssociated Order(s): IP PAIN MANAGEMENT CONSULT Images from the original note were not included. Pain consult availability: Mornings: Thursday through Thursday. For questions please page [phone]. Chief Complaint: back pain Consulting Physician: Dr. Pj Fuentes Reason for consult: acute post-operative pain OARRS was reviewed today. History of Present Complaint: The patient is a 35 year old female with a PMH of asthma, smoking, anxiety, HTN, GERD, anemia, failed back syndrome (s/p L5-S1 fusion 08/2024 and at OSH) now with pseudoarthrosis of L3-S1. Underwent exploration of L4-S1 fusion with removal of posterior nonsegmental instrumentation, posterior spinal instrumentation of L4-S1, posterolateral fusion of L5-S1 on 05/10/[address] Fuentes. Patient does not follow with pain management and does not receive chronic opiates. Symptoms prior to her surgery included low back and L lower extremity pain with numbness and tingling. While inpatient, patient was on dPCA until POD1 (yesterday evening) and transitioned to oxy 5/10 q4h prn for moderate/severe pain and dilaudid 0.5 mg q3h prn for breakthrough pain. Patient states that pain is located over lower back and radiating to R leg, stabbing/burning in nature. States that it is overall well controlled and tolerable and is a 7/10 at worse, with tylenol decreasing pain to 4/10. Of note patient declines oral opiates due to severe N/V with these medications. Also notes that she uses MJ chronically which helps her pain. PAIN: ONSET- acute, chronic RESULT OF A SURGERY- Yes LOCATION- low back RADIATION- Yes , left lower leg QUALITY- numb/tingling , burning CONSTANT or INTERMITTENT- Intermittent COMFORT- Tolerable with discomfort CHANGE IN PAIN- About the same and Getting better PAIN CONTROL- Fully effective FUNCTIONING- Can do most things, but pain gets in the way of some SLEEP- Normal sleep EXACERBATED BY- movement BETTER WITH- rest MEDICATIONS TRIED: Topicals: Lidocaine patch NSAID: Celebrex Pain Medications:Oxycodone helps, marijuana works the best for pain. Past medical history: reviewed per EMR Medical History[1] Past surgical history: per EMR. Review of patient's past surgical history indicates: LAMINECTOMY AND FUSION, POSTERIOR, THORACIC/VICTOR HUGO* (05/10/2025) Procedure: REMOVAL POSTERIOR SPINAL INSTRUMENTATION, L5-S1 POSTERIOR SPINAL FUSION; Surgeon: Pj Fuentes MD; Location: [facility]; Service: Neurosurgery Social history: per EMR ; Social History[2] Family history: per EMR; family history is not on file. ROS (otherwise pertinent positives and negatives per HPI): Review of Systems Gastrointestinal: Positive for nausea and vomiting. Musculoskeletal: Positive for back pain. Neurological: Positive for tingling. Allergies: Hydrocodone-Acetaminophen Home Medications: Medications Taking[3] Inpatient Medications: nicotine 14 mg Daily budesonide-formoterol 2 Puff BID RT montelukast 10 mg Every evening docusate sodium 100 mg 2x Daily acetaminophen 1,000 mg Every 8 hours celecoxib 200 mg 2x Daily scopolamine 1 mg Q72H acetaminophen 1,000 mg Every 6 hours oxyCODONE 5 mg Q4H PRN oxyCODONE 10 mg Q4H PRN HYDROmorphone HCl 0.5 mg Q3H PRN naloxone 0.4 mg PRN bisacodyl 10 mg Daily PRN hydrOXYzine 25 mg Q6H PRN ondansetron 4 mg Q6H PRN Or ondansetron 4 mg Q6H PRN sodium chloride 25 mL/hr at 05/11/25 0851 lactated ringers 75 mL/hr at 05/11/25 2320 Physical Exam: Patient Vitals for the past 24 hrs: BP Temp Temp src Pulse Resp SpO2 O2 Device 05/12/25 0600 116/75 36.8 ??C (98.2 ??F) Oral 78 16 100 % -- 05/11/25 2100 128/79 36.6 ??C (97.9 ??F) Oral 75 18 99 % -- 05/11/252004 -- -- -- 74 18 -- Room air 05/11/25 1348 118/49 36.7 ??C (98.1 ??F) Oral 74 16 100 % Room air 05/11/25 0901 127/71 36.9 ??C (98.4 ??F) Oral 82 16 100 % Room air 05/11/25 0838 -- -- -- 77 16 100 % Room air Physical Exam Vitals reviewed. Constitutional: General: She is not in acute distress. Appearance: Normal appearance. Eyes: Extraocular Movements: Extraocular movements intact. Cardiovascular: Comments: Well perfused Pulmonary: Effort: Pulmonary effort is normal. No respiratory distress. Musculoskeletal: Comments: Lumbar dressing in place, intact, clean and dry Neurological: Mental Status: She is alert and oriented to person, place, and time. Mental status is at baseline. Psychiatric: Comments: Cooperative, appropriate mood and affect; Recent/remote memory as evidenced through ifzo-kt-lumo interaction and discussion appear grossly intact Labs: BMP (last 3 years, up to 8 [...] Alk Phos 55 ALT 8 AST 14 Urine Drug Testing: Pain Management Panel No data to display Imaging: MR GoldsteinSPINE W/O Addendum: EXAMINATION: MR MACARIO Robertson/OPRO 03/08/2025 09:22 PM CLINICAL HISTORY: Low back pain, 6 weeks or more; S/P lumbar surgery; X-ray L- spine done ASSOCIATED DIAGNOSIS: Failed back surgical syndrome ORDERING PROVIDER: PJ FUENTES TECHNOLOGISTS NOTE: Pt unable to hold still due to pain and clautrophobia even though premedicated.Unable to do repeats. Best images achievable.mds COMPARISON: Lumbar spine CT from 12/06/2024 TECHNIQUE: Patient questionnaire was completed and was reviewed by MRI personnel prior to the patient entering the scanner. Multiplanar, multisequence MR imaging of the lumbar spine was performed without intravenous contrast. FINDINGS: Counting reference: Lumbosacral junction. L4-5 is at the level of the iliac crests, and there are 5nonrib-bearing lumbar-type vertebral bodies. Alignment: Within normal limits. Vertebral Body Height: Maintained. Bone Marrow and Discs: No aggressive focal lesion or pathologic marrow infiltration. Postoperative changes of lumbar dorsal decompression and posterior segmental interbody fusion at L5-S1. Conus: Normal position and signal intensity. Clumping of the cauda equina nerve roots with slight leftward displacement of L4-5 suggestive of arachnoiditis. Paraspinal Soft Tissues: Disruption of the dorsal paraspinous soft tissues in the laminectomy bed with small dorsal postoperative fluid collection, 1.6 x 3.0 x 2.3 cm T12-L1: No significant spinal canal or neural foraminal stenosis. L1-L2: No significant spinal canal or neural foraminal stenosis. L2-L3: No significant spinal canal or neural foraminal stenosis. L3-L4: No significant spinal canal or neural foraminal stenosis. Facet hypertrophy. L4-L5: No significant spinal canal or neural foraminal stenosis. Facet hypertrophy. L5-S1: No significant spinal canal or neural foraminal stenosis. Sacrum: Within normal limits. IMPRESSION: POSTOPERATIVE AND DEGENERATIVE CHANGES OF THE LUMBAR SPINE WITHOUT SIGNIFICANT SPINAL CANAL STENOSIS. FINDINGS SUGGESTIVE OF ARACHNOIDITIS. Narrative: EXAMINATION: MR GoldsteinSPINE W/OPRO 03/08/2025 09:22 PM CLINICAL HISTORY: Low back pain, 6 weeks or more; S/P lumbar surgery; X-ray L- spine done ASSOCIATED DIAGNOSIS: Failed back surgical syndrome ORDERING PROVIDER: PJ FUENTES TECHNOLOGISTS NOTE: Pt unable to hold still due to pain and clautrophobia even though premedicated.Unable to do repeats. Best images achievable.mds COMPARISON: Lumbar spine CT from 12/06/2024 TECHNIQUE: Patient questionnaire was completed and was reviewed by MRI personnel prior to the patient entering the scanner. Multiplanar, multisequence MR imaging of the lumbar spine was performed without intravenous contrast. FINDINGS: Counting reference: Lumbosacral junction. L4-5 is at the level of the iliac crests, and there are 5nonrib-bearing lumbar-type vertebral bodies. Alignment: Within normal limits. Vertebral Body Height: Maintained. Bone Marrow and Discs: No aggressive focal lesion or pathologic marrow infiltration. Postoperative changes of lumbar dorsal decompression and posterior segmental interbody fusion at L5-S1. Conus: Normal position and signal intensity. Clumping of the cauda equina nerve roots with slight leftward displacement of L4-5 suggestive of arachnoiditis. Paraspinal Soft Tissues: Disruption of the dorsal paraspinous soft tissues in the laminectomy bed with small dorsal postoperative fluid collection, 1.6 x 3.0 x 2.3 cm T12-L1: No significant spinal canal or neural foraminal stenosis. L1-L2: No significant spinal canal or neural foraminal stenosis. L2-L3: No significant spinal canal or neural foraminal stenosis. L3-L4: No significant spinal canal or neural foraminal stenosis. Facet hypertrophy. L4-L5: No significant spinal canal or neural foraminal stenosis. Facet hypertrophy. L5-S1: No significant spinal canal or neural foraminal stenosis. Sacrum: Within normal limits. IMPRESSION: Postoperative and degenerative changes of the lumbar spine without significant spinal canal stenosis. Findings suggestive of arachnoiditis. arachnoiditis. MACRO: None MR T-SPINE W/O EXAMINATION: MR T-SPINE W/OPRO 03/08/2025 09:25 PM CLINICAL HISTORY: myelopathy ASSOCIATED DIAGNOSIS: Failed back surgical syndrome ORDERING PROVIDER: PJ FUENTES TECHNOLOGISTS NOTE: Pt motion due to pain and claustro. Pt premedicated but said it didn't help. Unable to do repeats. Best images achievable. mds COMPARISON: , Lumbar spine MRI from 03/08/2025 and 11/11/2024 (outside institution) TECHNIQUE: Patient questionnaire was completed and was reviewed by MRI personnel prior to the patient entering the scanner. Multiplanar, multisequence MR imaging of the thoracic spine was performed without intravenous contrast. FINDINGS: The examination is degraded by motion artifact. Counting reference: Lumbosacral junction. L4-5 is at the level of the iliac crests, and there are 5nonrib-bearing lumbar-type vertebral bodies. Alignment: Normal. Vertebral Body Height: Normal. Bone Marrow: No aggressive focal lesion or pathologic marrow infiltration. Cord: Normal signal intensity and morphology. Paraspinal Soft Tissues: Normal. Canal and Foramina: No significant thoracic spinal canal or neural foraminal stenosis. IMPRESSION: Normal study. MACRO: None Last ECG Date: Not Found Patient labs along with radiology reports and other pertinent tests were obtained and reviewed fromthe [facility] electronic medical record system. Pertinent positive and negative findings were considered in the medical decision making. Assessment: The patient is a 35 year old female with a past medical history of adapted per chart review who is s/p re-exploration of L5-S1 fusion with instrumentation and removal of hardware with Dr. Fuentes on 05/10/2025. Pain management consulted for management of acute post-operative pain. Pain under control at this time. My recommendations are as follows: Plan: -Since pain is well controlled and patient is declining other pain medications aside from tylenol at this time, we recommend tylenol 1g q8h at discharge -Can stop oxy 5/10 and dilaudid breakthrough while inpatient due to patient's N/V -Patient can follow up with [facility] outpatient A copy of my note and recommendations will be sent to Dr. Fuentes Thank you for allowing me to participate in the care of your patient. Miroslava Willis MD Anesthesiology PGY3 Pain consult availability: Mornings: Thursday through Thursday. For questions please page [phone]. Teaching Physician Note: I saw and evaluated the patient. I personally obtained the orellana and critical portions of the historyand physical exam. I reviewed the resident's documentation and discussed the patient with the resident. I agree with the resident's medical decision making as documented in the resident's note. Nausea and vomiting with oxycodone. She will defer a prescription at discharge. Doing well overall. She would like to go home. Discharge with Tylenol 1,000 mg every 8 hours per patient request. Marcelina Koroma DO [1] No past medical history on file. [2] Social History Tobacco Use Smoking status: Every Day Types: Cigarettes Smokeless tobacco: Never Tobacco comments: vapes Vaping Use Vaping status: Every Day Substance Use Topics Alcohol use: Not Currently Drug use: Yes Types: Marijuana/THC Comment: daily [3] Outpatient Medications Marked as Taking for the 05/10/25 encounter (Hospital Encounter) Medication Sig Dispense Refill budesonide-formoterol (Symbicort) 80-4.5 MCG/ACT inhaler Inhale 2 Puffs by mouth 2 times daily. ALBUTEROL INHALATION Inhale 1-2 Puffs by mouth every 6 hours as needed (SOB). montelukast (SINGULAIR) 10 MG tablet TAKE 1 TABLET BY MOUTH EVERY DAY FOR 30 DAYS; Duration: 30 cyclobenzaprine (FLEXERIL) 10 MG tablet Take 10 mg by mouth 3 times daily as needed for Muscle spasms. lidocaine (LIDODERM) 5 % patch Place 1 Patch on the skin daily as needed for Pain. * Ebony Altamirano, PT - 05/11/2025 11:36 AM ESTAssociated Order(s): IP PHYSICAL THERAPY SERVICE REQUEST PHYSICAL THERAPY ACUTE EVALUATION Referral received, chart reviewed. Patient seen from 10:56 to 11:25 on 6E unit for 29 minutes. Eval and tx. Co-tx with OT 2* patient safety and skilled need of 2 therapists to mobilize patient. Admit date/time: 05/10/2025 5:50 AM Reason for Admit: planned procedure for Failed back surgical syndrome Procedure: 05/10/[address] Fuentes: 1. Exploration L5-S1 fusion 2. Removal of posterior nonsegmental instrumentation. 3. Posterior nonsegmental spinal instrumentation, L5-S1, with Globus Creo titanium screw and dennis system. 4. Posterolateral fusion, L5-S1. 5. Allograft and autograft through same incision Medical History[1] Surgical History[2] Precautions: high falls, full code, progressive mobility Identification was verified by patient verbalizing his/her name and date of . Risks and Benefits of physical therapy: Patient informed of risks and benefits of treatment SUBJECTIVE: Patient Subjective: I can't move my (R) leg. I can't feel my (R) leg. I have fallen before becauseI have POTS. I had problems with my other surgery because I moved too much. Pt reported she has AMB to the [facility] with nursing. Patient Identified Goal(s): none stated DENTAL COORDINATOR Status: Pt AMB with a rollator. Pt reported 3 falls 2* dizziness from POTS. assists with IADLs. Pt reported her has to assist her with getting in/out of the tub (pt sits in the tub to bathe). Pt's MIL assists with showering. Pt reported climbing stairs sideways to enter her home. Home: Lives in a house with and 2 children 2 steps to enter with (L) rails. 0 steps to bedroom/bathroom without rails. Assistance available: 19/01 assist from Equipment available: rollator OBJECTIVE: Cqrbrz-wj-ply and jjgxvm-xk-yrb present throughout evaluation per pt request Appearance: IV, hemovac, SCDs Behavior: alert, agreed to participate, anxious, increased muscle guarding Oriented x 3 Follows 1 step commands with cues Pain: Site/Location: back; Pain Scale: 8/10 initially but then increased to 10/10 Pain Relief Interventions Implemented: Positioning. Educated pt on mobility techniques for pain reduction. Numbness/tingling reported (R)LE Passive ROM: Not formally tested however observed WFL for basic level of mobility Strength/Active ROM: (B)UE WFL but see OT evaluation (L)LE: DF at least 3/5, knee ext 3/5 and hip flex 2+/5 (R)LE: DF at least 3/5, knee ext 2+/5 and hip flex 2+/5 Mobility: Pt requested to remain seated on the EOB at end of evaluation 2* recliner chair was too uncomfortable. Rolling to left: educated pt on the logroll technique for pain reduction and protection of spine. Pt used both hands to assist with (B)LE hip/knee flexion prior to rolling. CGA x 1-2 for rolling withcues for technique Sidelying to sit: contact guard x 2 with cues for logroll technique. Pt returned to sidelying position immediately 2* c/o dizziness. After ~30 seconds, pt performed sidelying to sit again with CGA x 2 Sitting balance: Good. Pt sat on the EOB for ~ 5 mins with supervision. Pt had c/o dizziness that improved. Sit to stand: contact guard x 2 with RW with cues for hand placement. Pt attempted to pull on the walker to assist with sit to stand. Increased muscle guarding noted once standing. Ambulation/Gait: with RW 10' x 1 with CGA x 2 with increased muscle guarding, elevated shoulder, decreased step length and decreased (B) knee flexion noted. Pt took intermittent standing breaks. Stand to sit: onto the EOB with CGA x 1 with cues for hand placement. Pt kept both hands on the walker and allowed both feet to slide forward causing decreased eccentric control. Reviewed correct technique to improve comfort and control with sit to stand. After sitting on the EOB for ~ 1 min, pt reported needing to return to supine position 2* dizziness Sit to sidelying to supine: CGA x 1 with cues for logroll technique. At end of evaluation, pt remained supine in bed with call light/phone/bedside table placed in reach. Encouraged pt to elevate HOB when pt is supine to assist with decreasing dizziness. Pt agreed. Endurance: Impaired Patient/Family Education: Instructed Patient in roles of therapy. Informed pt to have assist with all mobility at this time. Pt agreed. 05/11/2025 6 Clicks Basic Mobility PT Difficulty turning over in bed 3 Difficulty sitting down and standing up from a chair with arms 3 Difficulty moving from lying on back to sitting on the side of the bed 3 Help from another person moving to and from bed to a chair 3 Help from another person to walk in hospital room 3 Help from another person climbing 3-5 steps with a railing 3 PT 6 Clicks Score 18 6 Click Score Guidelines: 1 - Total = Requires total assistance, or cannot do at all. 2 - A lot = Requires a lot of help (maximun to moderate assistance) Can use assistive devices. 3 - A little = Requires a little help (supervision, minimal assistance) Can use assistive devices. 4 - None = Does not require any help and does the activity independently. Can use assistive devices. ASSESSMENT: Doug Gomez is a 35 year old yo female s/p L5-S1 revision fusion on 05/[address] Fuentes. Pt is mobilizing slowly with limited hands on assist required. Increased muscle guarding noted during mobility. Pt reported frequent dizziness when upright 2* POTS. Pt will have assist available all of the time upon d/c. Pt has a rollator for home use. Anticipate patient will be appropriate for discharge home following 1-2 acute Physical Therapy sessions. Will continue to follow patient while in hospital as appropriate. Recommend Outpatient Physical Therapy when Dr. Fuentes deems appropriate. Problems: Pain Decreased ROM/strength Decreased functional mobility Decreased endurance Decreased balance Decreased education in exercise/precautions Rehabilitation Potential: Good Goals (to be achieved by discharge from acute care): Patient will achieve acceptable level of pain control to allow participation in therapy. Patient will increase bed mobility to supervision with logroll technique Patient will perform sit to/from stand with rolling walker with supervision Patient will ambulate 75 feet with rolling walker with supervision Patient will ascend/descend 2 stairs with (L) rail(s) with contact guard assistance Patient will increase ROM/Strength/Endurance/Balance to allow for above goals. Patient/Family independent with exercise program/precautions. PLAN OF CARE: Frequency: Patient to be seen 3-5 times a week Interventions: Functional mobility ROM/Strengthening Home exercise program Discharge planning and equipment ordering as needed Patient /Family education The evaluation findings and treatment plan were discussed with the patient/family. The patient/family indicated understanding and agreement with the plan. Ebony Altamirano PT NA = Not Assessed, I = Independent, [place] = Modified Independent, Sup = Supervised, Set up = Physical Assistance for Set-up Only, Min = Minimal Assistance, Mod = Moderate Assistance, Max = Max assistance; Dep = Dependent; AROM = Active Range of Motion; PROM = Passive Range of Motion; MMT = Manual Muscle Test; LE = Lower Extremity [1] No past medical history on file. [2] Past Surgical History: Procedure Laterality Date LAMINECTOMY AND FUSION, POSTERIOR, THORACIC/LUMBAR N/A 05/10/2025 Procedure: REMOVAL POSTERIOR SPINAL INSTRUMENTATION, L5-S1 POSTERIOR SPINAL FUSION; Surgeon: Pj Fuentes MD; Location: [facility]OPER[facility] SERVICES; Service: Neurosurgery * Apolonia Harvey, OTR/L - 05/11/2025 10:56 AM ESTAssociated Order(s): IP OCCUPATIONAL THERAPY SERVICE REQUEST OCCUPATIONAL THERAPY INITIAL EVALUATION Patient seen from 10:56 to 11:25 on 6E unit for 29 minutes. Evaluation + treatment. Co-tx with PT to maximize safety and participation during progression of functional mobility/transfers and ADLs. Reason for Admit: 35 year old female presenting for planned procedure. Diagnosis: Failed back surgical syndrome Precautions/Activity Order: High Fall Risk Full Code Clear Liquid Diet Strict I&O Progressive Mobility (PT/OT start POD1) WBAT, no spine precautions. No bending/lifting/twisting. Procedures this admit: 05/10/25: Pj Fuentes MD 1. Exploration L5-S1 fusion 2. Removal of posterior nonsegmental instrumentation. 3. Posterior nonsegmental spinal instrumentation, L5-S1, with Globus Creo titanium screw and dennis system. 4. Posterolateral fusion, L5-S1. 5. Allograft and autograft through same incision Past Medical and Surgical History: PMH: Medical History[1] PSH: Surgical History[2] SUBJECTIVE: Patient Subjective: I can't really feel my right leg. Patient Identified Goal(s): To return home Prior Functional Status: Assistance with Activities of Daily Living Independent Ambulation with assistive device - rollator Assistance with Instrumental Activities of Daily Living Assistance Available at Home: Lives with and 2 children; 24/7 assist available Home Living Situation Patient lives in a 1 story home with 2 stairs to enter. Full Bathroom on 1st level. Bedroom on 1st level. Equipment available at home: rollator, RW, cane OBJECTIVE: Patient Identification: patient verbalizing his/her name and date of . and patient's id band and date of . Risks and benefits of occupational therapy: Patient and family informed of risks and benefits of treatment Appearance: Semi-supine in bed, jaramillo, hospital gown, HEALTH FACILITIES SURVEYOR, IV, Hemovac drain, (B) SCDs, [id number]-ji-[id number] and [id number]-[id number]-rbt present at bedside Alertness: Awake Affect: anxious Cooperation/Behavior: Appropriate dialogue with therapist and cooperative with encouragement, pain-focused Communication: WFL Pain: Pain ratin/10, Location: back Pain Relief Interventions Implemented: Positioning, Rest, and Encouraged patient to use HEALTH FACILITIES SURVEYOR Self Care: Assistance Level Dep Max Mod Min CG CS DS [place] I Set-Up Comment Feeding x Clear Liquid Diet Grooming/Hygiene x Seated Bathing:UB x Simulated, seated Bathing:LB x Simulated, seated Dressing:UB x Don gown in back while seated EOB Dressing: LB x To manage (B) socks Toileting x +jaramillo; anticipate CGA for safety at toilet level Transfers/Bed Mobility: Assistance Level Dep Max Mod Min CG CS DS [place] I Set-Up Comment Toilet Transfers x Anticipate Bed Transfers x Sit to stand from EOB to RW; verbal cues for hand placement Stand to sit EOB; verbal cues for hand placement Bed Mobility x Semi-supine to seated EOB; verbal cues for log roll technique Functional Mobility x Pt ambulated short functional distance using RW with CGA; distance limited bypain and mild lightheadedness Endurance for Self Care: Impaired Static Sitting Balance: Good Dynamic Sitting Balance: Good UE Motor: (B) UE AROM WFL Vision/Perception: WFL Cognition: Orientation: Oriented to person, place, and date Follows Commands: WFL Attention: WNL Memory: WFL Problem Solving: WFL Safety/Judgement: insight beginning to develop Sequencing: WFL Other Specialized Tests: None Patient/Family Education: Instructed patient in roles of therapy and Patient instructed in benefitsof OOB activity and log roll technique. Educated on no heavy bending, lifting, or twisting. Patient up in bed with call light in reach. DME: With Patients permission ordered no equipment via [employer] Order. If any questions contact [facility] DME Provider at [phone]. *may benefit from tub bench/shower chair to maximize safety (Pt unsure of size/if equipment would fit in bathroom). 05/11/2025 6 Clicks Daily Activity OT Help from another person Eating meals 4 Help from another person taking care of personal grooming 3 Help from another person bathing 3 Help from another person putting on and taking off regular upper body clothing 3 Help from another person putting on and taking off regular lower body clothing 2 Help from another person toileting 2 OT 6 Clicks Score 17 6 Click Score Guidelines: 1 - Unable = Total/Dependent Assist 2 - A lot = Max/Moderate Assist 3 - A little = Minimum/Contact Guard Assist/Supervision 4 - Non = Modified [place]/Independent ASSESSMENT: Patient is functionally appropriate for discharge home once medically cleared. Will continue to follow patient while in hospital as appropriate. Recommend PRN family/caregiver assist for ADL/IADLs. Rehabilitation Potential: Good Problem List: decreased ADLs, decreased endurance, decreased functional transfers/mobility, impaired balance, decreased home management tasks/IADLs, decreased functional activity tolerance, and increased pain Goals (to be achieved by discharge from acute care): Patient will perform grooming with Modified Independent Patient will dress upper body with Modified Independent Patient will dress lower body with Modified Independent Patient will perform bed mobility with Modified Independent Patient will perform bathing with Modified Independent Patient will perform toileting with Modified Independent Patient will perform bed transfers with Modified Independent Patient will perform commode transfers with Modified Independent PLAN: Doug Gomez will be seen 1-3 times a week. Treatment to include: functional mobility training, ADL retraining, functional endurance activities, work simplification / energy conservation, functional task simulation, adaptive equipment / compensatory strategy training, patient / family education and discharge planning, and pain Management able to discuss the evaluation findings and treatment plan with the patient/family. The patient/family did participate in the development of plan and goals. Apolonia Nice?? OTR/L NA = Not Assessed, I = Independent, [place] = Modified Independent, Sup = Supervised, Set up = Physical Assistance for Set-up Only, Min = Minimal Assistance, Mod = Moderate Assistance, Max = Max assistance; Dep = Dependent; AROM = Active Range of Motion;PROM=Passive Rangeof Motion; MMT = Manual Muscle Test; UB = Upper Body; LB = Lower Body [1] No past medical history on file. [2] Past Surgical History: Procedure Laterality Date LAMINECTOMY AND FUSION, POSTERIOR, THORACIC/LUMBAR N/A 05/10/2025 Procedure: REMOVAL POSTERIOR SPINAL INSTRUMENTATION, L5-S1 POSTERIOR SPINAL FUSION; Surgeon: jP Fuentes MD; Location: PERIOPERATIVE SERVICES; Service: Neurosurgery * Sujey David, PT - 05/10/2025 3:31 PM EST Occupational Therapy and Physical Therapy Consult received, chart reviewed. Attempted to see pt for OT/PT evaluation with pt reporting doctorrequested pt stay in bed post-op day 0 with plan to start therapy tomorrow. RN notified and reachedout to MD via [employer] Secure Chat and clarified order via Dr. Fuentes for bedrest today with no head of bed restrictions with plan to start therapy tomorrow. Plan to HOLD evaluation this date and completewhen appropriate. Radha Ayala OTD, OTR/L Sujey David PT [phone]. [phone] documented in this encounter Nursing Notes * Marcos Huerta RN - 05/10/2025 9:01 AM EST Four Caps, two Rods, and four screws from previous surgery at outside hospital from patients spine per Dr Fuentes. documented in this encounter Miscellaneous Notes * OP Note - Pj Fuentes MD - 05/10/2025 6:11 PM EST Name: DOUG GOMEZ MR#: [id number] ENC#: [id number] Date of Procedure: 05/10/2025 ATTENDING SURGEON: Pj Fuentes MD STEAM FITTER SUPERVISOR MAINTENANCE: Rafa Sheehan MD PREOPERATIVE DIAGNOSES: 1. Status post L5-S1 fusion. 2. Rule out pseudoarthrosis L5-S1. PREOPERATIVE DIAGNOSES: 1. Status post L5-S1 fusion. 2. Obvious pseudoarthrosis L5-S1. PROCEDURES: 1. Exploration L5-S1 fusion 2. Removal of posterior nonsegmental instrumentation. 3. Posterior nonsegmental spinal instrumentation, L5-S1, with Globus Creo titanium screw and dennis system. 4. Posterolateral fusion, L5-S1. 5. Allograft and autograft through same incision ANESTHESIA: General. ESTIMATED BLOOD LOSS: 100 cc. OPERATIVE INDICATIONS: 35yo female, referred to me by her primary care physician in December of 2024. She was status post 2 low back operations done elsewhere. The first one was in August of 2024 and the second one was in November of 2024. The patient had significant low back and left lower extremity pain, numbness and tingling, almost like a regional pain syndrome type picture in her left lower extremity. Investigations revealed instrumentation at L5-S1, a normal disk at the L5-S1 space, a fluid collection dorsal to the dorsal aspect of the dura. A very minimal posterolateral bone on the CT scan. Thepatient refused to go back to her previous surgeon. Therefore, risks, benefits, and alternatives to exploration of the previous fusion, possible repair of dural tear, possible removal of the previousinstrumentation and re-instrumentation at L5-S1 with posterolateral fusion were discussed with the patient, and she wished to proceed with surgery. OPERATIVE PROCEDURE: After proper consent and identification, the patient was taken to OR-1. General endotracheal anesthesia was administered. Antibiotics were given prophylactically. The patient wasrolled prone on the Karolyn table with posts. All bony prominences were well padded. The back was prepped and draped in the normal sterile fashion. After a time-out by Anesthesia, Nursing, and Surgery, the previous midline incision was incised with a 10-blade scalpel. Sharp dissection was taken down to the lumbosacral fascia. The dissection was carried out posterolaterally to expose the L5-S1 pedicle screws, the sacral ala and the iliac crest bilaterally. Of note, there was no evidence of infection. We saw a Prolene stitch in the middle of the dura at the level just between the L5-S1 pedicle screws. First, attention was drawn to the previous instrumentation. With the appropriate tools, we removed the posterior caps and rods. We then were able to take a [place] 1 between the pedicle screws and distract; therefore, we deemed the previous fusion not healed. We then removed the pedicle screws. We then carried the dissection out to reveal the sacral ala, the posterior superior iliac spine. We had anesthesia give us multiple Valsalva's, and there was no CSF leak. Therefore, we proceeded to the fusion. We upsized the screws at L5 and S1 and placed them with excellent purchase. We then did a turndown of the sacral ala and the posterior superior iliac crest with a Kittner gouge. We harvested iliac crest with Magnum curettes through this defect in the posterior superior iliac spine. We laid a 5 cc of allograft demineralized bone matrix in the posterolateral gutters and then piled the iliac crest bone on top. We then placed rods in the pedicles screw caps and tightened the caps terminally. Another Valsalva was undertaken, there was no CSF leak. The wound was irrigated copiously. Our final construct was justified by multiple C-arm views. Attention was drawn to wound closure. The wound was closed in layers over vancomycin powder and a 10-[place] round Hemovac drain. Simple interrupted #2 Vicryl sutures for the lumbosacral fascia, 2-0 simple interrupted buried Vicryl sutures for the subcutaneous tissue and a running 4-0 Monocryl stitch for the skin edges . Dermabond was placed over the incision. The drain was secured to the skin with 3-0 nylon stitch and placed to gravity. The patient was then rolled supine on her hospital bed, awakened, extubated, and taken to PACU. There were no complications. The patient tolerated the procedure well. I was present from the time the patient came into the room until the fascia was closed. DISPOSITION: The patient will be allowed out of bed as tolerated on the day of her surgery. She will be maintained with a HEALTH FACILITIES SURVEYOR for her pain control. She will receive a standing AP and lateral lumbar spine x-ray when she is able. She will most likely require a 3-4 day hospital stay. MD MARQUISE Mcgraw/Tex/Dict: 05/10/2025 09:29:41 TRANS: 05/10/2025 13:09:03 JOB: [id number] DictJob#: [id number] * Brief Operative Note - Rafa Sheehan MD - 05/10/2025 8:03 AM EST Brief Operative Note MAIN OR 01 Doug Gomez 35 year old female Surgical Contact Serial Number: [id number] Preoperative Diagnosis: Pre-op Diagnosis * Failed back 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] Postoperative Diagnosis: * Failed back 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] Procedures: L5-S1 exploration and revision of hardware Posterolateral fusion L5-S1 Surgeon(s): Surgeon(s): Pj Fuentes MD Staff: Scrub: Marylou Haney RN; Jomar Paige, RENETTA Gut Carrier Nurse: Marcos Huerta RN Rail Car Unloader: Fred Camp Concrete Saw Operator: Rafa Sheehan MD Anesthesia: General Anesthesiologist: Campos Waller MD HUMANE OFFICER: Samantha Hernandez APRN-HUMANE OFFICER High Density Press Operator: Mil Wolfe MD Specimen(s): * No specimens in log * Estimated Blood Loss: greater than 10 cc -- Esitmated Amount: 100cc Lines/Drains: Peripheral IV Access: 05/10/25638 18 gauge Right Arm (Active) Site Assessment WNL;Dressing intact 05/10/25633 Infusion Status Port #1 Capped;Patent;Positive blood return 05/10/25633 Peripheral IV Access: 05/10/25739 18 gauge Left Hand (Active) Surgical Drain Hemovac / Davol # 1 10 fr Posterior (Active) Temporarily Retained Foreign Object: Yes Location: Left lumbar Object: Subfascial hemovac drain Anticipated removal date: 48h Findings: No identifiable CSF leak or dural tear on provocation Loose hardware L5>S1 Complications: None Status at end of surgery: Stable Activity: weight bearing as tolerated Surgical wound class: Yes, wound was clean. Patient Class: Surgery Admit. Is this a patient scheduled as an outpatient that needs to be admitted as an inpatient? No Dr. Fuentes was present in the OR for the critical portion of the procedure and procedure sign-out. Signed by Rafa Sheehan MD 05/10/2025 9:41 AM * Blood Attestation - Mil Wolfe MD - 05/10/2025 7:03 AM EST Blood Attestation: ATTESTATION OF INFORMED CONSENT FOR BLOOD: The transfusion of blood and/or blood components were discussed with the patient and/or legal marketing representative. The risks, benefits and alternatives were reviewed. Questions regarding blood transfusions were answered. The patient /or the patient???s legal marketing representative agree with the plan for transfusion of blood and/or blood components. documented in this encounter Plan of Treatment DateTypeDepartmentCare Team (Latest Contact Info)Ymlhwrbubzy15/25/2025 11:00 AM ESTOffice Visit [facility] [address] [place] [address] Pj Fuentes MD [address] [place] [address] documented as of this encounter Procedures Procedure NamePriorityDate/TimeAssociated DiagnosisCommentsXR L-SPINE STANDING AP+LAT 2 WXQIXQXLO63/14/2025 8:10 AM EST XR FLUORO SUPPORT ONLY IN SURGERY (ERIC)STAT107/10/2024 9:51 AM ESTLAMINECTOMY AND FUSION, POSTERIOR, THORACIC LUMBARRoutine sbourkyxb84/12/2025 7:05 AM EST Failed back surgical syndrome Case Notes 03/22 LMOM URINE HCG-IN ZLUAQMCrhfabp54/12/2025 6:26 AM EST RED BLOOD CELL ULRNUAHBWAznwuvg05/11/2025 11:39 AM EST RED BLOOD CELL UNIT NBOQBMKygmjmo44/11/2025 11:39 AM EST RED BLOOD CELL UNIT MZSLVEOdctlmr16/11/2025 11:39 AM EST documented in this encounter Results * XR L-SPINE STANDING AP+LAT 2 VIEWS (05/12/2025 8:10 AM EST)Anatomical Region LateralityModalityXR L- Spine, L-spineN/AComputed RadiographySpecimen (Source) Anatomical Location / LateralityCollection Method / VolumeCollection Time Received Time05/12/2025 8:12 AM EST Narrative 05/12/2025 8:13 AM EST EXAMINATION: XR L-SPINE STANDING AP+LAT 2 VIEWSPRO 05/12/2025 08:10 AM CLINICAL HISTORY: upright L spine ASSOCIATED DIAGNOSIS: ORDERING PROVIDER: ERAN BIRCH NOTE: COMPARISON: MR L-SPINE W/O 03/08/2025 9:25 PM FINDINGS: IMPRESSION: Limitation: No clinical history. Study appears to be postoperative decompression and posterior fixation of L5-S1 without obvious complication. MACRO: None Procedure Note Fred Mullen MD - 05/12/2025 EXAMINATION: XR L-SPINE STANDING AP+LAT 2 VIEWSPRO 05/12/2025 08:10 AM CLINICAL HISTORY: upright L spine ASSOCIATED DIAGNOSIS: ORDERING PROVIDER: ERAN BIRCH NOTE: COMPARISON: MR L-SPINE W/O 03/08/2025 9:25 PM FINDINGS: IMPRESSION: Limitation: No clinical history. Study appears to be postoperative decompression and posterior fixation ofL5-S1 without obvious complication. MACRO: None Authorizing ProviderResult TypeResult StatusEran [facility]-RAY Final Result * XR FLUORO SUPPORT ONLY IN SURGERY (ERIC) (05/10/2025 9:51 AM EST)Specimen (Source)Anatomical Location / LateralityCollection Method / VolumeCollection TimeReceived Time Narrative Authorizing ProviderResult TypeResult StatusPj [facility] DIAGNOSTIC X-RAYFinal Result * URINE HCG-IN OFFICE (05/10/2025 6:26 AM EST)ComponentValueRef RangeTest Method Analysis TimePerformed AtPathologist SignatureUrine Beta hCGNegativeNegative Positive Internal ControlPositivePositiveNegative Internal ControlNegative NegativeSpecimen (Source)Anatomical Location / LateralityCollection Method / VolumeCollection TimeReceived TimeUrineURINE SPECIMEN / Uwjsdyl1505/10/2025 6:26 AM EST Narrative Authorizing ProviderResult TypeResult Garcia [facility] BACK OFFICE LABSFinal Result * RED BLOOD CELL COMPONENT (05/09/2025 11:39 AM EST)ComponentValueRef RangeTest MethodAnalysis TimePerformed AtPathologist SignatureBB Order ItemProduct status info to followLEA REGIONAL [facility] PATHOLOGY LABORATORYSpecimen (Source)Anatomical Location / LateralityCollection Method / VolumeCollection TimeReceived Time BLOOD SPECIMEN / Unknown Narrative Authorizing ProviderResult TypeResult StatusPrice [facility] BLOOD BANKFinal ResultPerforming OrganizationAddressCity/State/ZIP CodePhone Number [facility] [address] [place] [address] [phone] * RED BLOOD CELL UNIT STATUS (05/09/2025 11:39 AM EST)ComponentValueRef Range Test MethodAnalysis TimePerformed AtPathologist SignatureBlood Product DescriptionRed Blood CellsLEA [facility]IONAL [facility]ENTER PATHOLOGY LABORATORYBlood Product [id number] [facility] PATHOLOGY LABORATORYStatusCanceProvidence [facility] PATHOLOGY LABORATORYBlood Product Unit [id number] PATHOLOGY LABORATORYBlood Product Unit [id number] PATHOLOGY LABORATORYComment:A PosCrossmatch InterpretationCompatible (E)[facility] PATHOLOGY LABORATORYSpecimen (Source)Anatomical Location / Laterality Collection Method / VolumeCollection TimeReceived Time05/09/2025 11:39 AM EST Narrative Authorizing ProviderResult TypeResult StatusDalo [facility] BLOOD BANKEdited Result - FinalPerforming OrganizationAddressCity/State/ZIP CodePhone Number [facility] [address] [place] [phone] * RED BLOOD CELL UNIT STATUS (05/09/2025 11:39 AM EST)ComponentValueRef Range Test MethodAnalysis TimePerformed AtPathologist SignatureBlood Product DescriptionRed Blood CellsLEA [facility]AL [facility]ENTER PATHOLOGY LABORATORYBlood Product [id number] [facility] PATHOLOGY LABORATORYStatusCPerson [facility] PATHOLOGY LABORATORYBlood Product Unit [id number] PATHOLOGY LABORATORYBlood Product Unit [id number] PATHOLOGY LABORATORYComment:A PosCrossmatch InterpretationCompatible (E)[facility] PATHOLOGY LABORATORYSpecimen (Source)Anatomical Location / Laterality Collection Method / VolumeCollection TimeReceived Time05/09/2025 11:39 AM EST Narrative Authorizing ProviderResult TypeResult StatusPrice [facility] BLOOD BANKEdited Result - FinalPerforming OrganizationAddressCity/State/ZIP CodePhone Number [facility] [address] [place] [address] documented in this encounter Visit Diagnoses Diagnosis Failed back surgical syndrome- Primary Other unspecified back disorder Failed back surgical syndrome Other unspecified back disorder documented in this encounter Admitting Diagnoses Diagnosis Failed back surgical syndrome Other unspecified back disorder documented in this encounter Administered Medications Medication OrderMAR ActionAction DateDoseRateSite acetaminophen (TYLENOL) tablet 1,000 mg, Oral, EVERY 6 HOURS, First dose on Thu05/10/25 at 0700, Until Discontinued, Pre-op Given05/12/2025 10:19 AM EST1,000 fhGhoab7305/11/2025 2:55 AM EST1,000 mgGiven 05/10/2025 8:41 PM EST1,000 mg acetaminophen (TYLENOL) tablet 1,000 mg, Oral, EVERY 8 HOURS, First dose on Thu05/10/25 at 0700, Until Discontinued Given05/11/2025 9:27 PM EST1,000 tgSipim7605/11/2025 8:50 AM EST1,000 mg bisacodyl (DULCOLAX) 10 MG suppository 10 mg, Rectal, DAILY PRN, Starting on Thu05/10/25 at 0620, Until Thu05/12/25 at 1721, Constipation, if NPO or no BM from Milk of Magnesia within 6 hours budesonide-formoterol (SYMBICORT) 80-4.5 MCG/ACT inhaler 2 Puff, Inhalation, 2 TIMES DAILY RT, First dose on Thu05/10/25 at 1200, Until Discontinued, Post-op Given05/12/2025 9:28 AM EST2 IjneeOcnyz67/13/2025 8:04 PM EST2 Puffsven 05/11/2025 8:38 AM EST2 Puffs ceFAZolin Sodium (ANCEF) 2,000 mg in sodium chloride 0.9 % 100 mL (V2B) 2,000 mg, Intravenous, EVERY 8 HOURS, 2 doses, First dose (after last reorder) on Thu05/10/25 at 1600, Last dose on Thu05/11/25 at 0000 IV 05/11/2025 12:01 AM EST2,000 mg200 mL/hrIV 05/10/2025 3:29 PM EST2,000 mg200 mL/hr celecoxib (CeleBREX) capsule 200 mg, Oral, 2 TIMES DAILY, First dose on Thu05/10/25 at 0700, Until Discontinued, Pre-op Given05/12/2025 10:19 AM ZVE551 zkUvutd9105/11/2025 9:29 PM NGK305 [facility] 05/11/2025 8:50 AM LOW890 mg docusate sodium (COLACE) capsule 100 mg, Oral, 2 TIMES DAILY, First dose on Thu05/10/25 at 0900, Until Discontinued Given05/10/2025 8:40 PM WGU054 mg gabapentin (NEURONTIN) capsule 600 mg, Oral, ONCE, 1 dose, On Thu05/10/25 at 0700, Pre-op Given05/10/2025 6:31 AM PGP951 mg HYDROmorphone (DILAUDID) 1mg/mL HEALTH FACILITIES SURVEYOR IV 05/10/2025 10:13 AM EST hydrOXYzine (ATARAX) tablet 25 mg, Oral, EVERY 6 HOURS PRN, Starting on Thu05/10/25 at 0621, Until Thu05/12/25 at 1721, Anxiety lactated ringers iv infusion Intravenous, at 75 mL/hr, CONTINUOUS, Starting on Thu05/10/25 at 0700, Until Thu05/12/25 at 1721 IV 05/11/2025 11:20 PM EST75 mL/hrIV 05/11/2025 9:12 PM EST75 mL/hrIV 05/11/2025 8:51 AM EST75 mL/hr montelukast (SINGULAIR) tablet 10 mg, Oral, EVERY EVENING, First dose on Thu05/10/25 at 1800, Until Discontinued, Post-op Given05/11/2025 9:29 PM EST10 ivLzdhj1005/10/2025 8:42 PM EST10 mg naloxone (NARCAN) 0.4 MG/ML injection 0.4 mg, Intravenous, PRN, Starting on Thu05/10/25 at 0952, Until Thu05/12/25 at 1721, RespiratoryRate Less Than 8 for adults and less than 12 for Peds or for suspected overdose nicotine (NICODERM CQ) 14 mg/24 hr patch 14 mg, Transdermal, DAILY, First dose (after last modification) on Thu05/11/25 at 0100, Until Discontinued Patch Idtwswe5405/12/2025 10:19 AM EST14 mgPatch Rrpvrev4605/11/2025 1:15 AM EST14 mg ondansetron (ZOFRAN) 4 MG/2ML injection 4 mg, Intravenous, EVERY 6 HOURS PRN, Starting on Thu05/10/25 at 0621, Until Thu05/12/25 at 1721,Nausea, Vomiting Given05/11/2025 9:29 PM EST4 zoKidtn2205/11/2025 2:00 PM EST4 zyTxiku4105/11/2025 12:44 AM EST4 mg ondansetron (ZOFRAN-ODT) disintegrating tablet 4 mg, Oral, EVERY 6 HOURS PRN, Starting on Thu05/10/25 at 0621, Until Thu05/12/25 at 1721, Nausea, Vomiting oxyCODONE immediate release tablet 5 mg, Oral, EVERY 4 HOURS PRN, Starting on Thu05/11/25 at 1511, Until Thu05/12/25 at 1721, Moderate Pain (pain score 4,5,6) oxyCODONE immediate release tablet 10 mg, Oral, EVERY 4 HOURS PRN, Starting on Thu05/11/25 at 1511, Until Thu05/12/25 at 1721, Severe Pain (pain score 7,8,9,10) povidone-iodine 10 % swab 4 Swab, Nasal, Once, 1 dose, On Thu05/10/25 at 0700, Pre-op Given05/10/2025 6:33 AM EST4 Swabs scopolamine (TRANSDERM-SCOP) 1 MG/3DAYS patch 1 mg, Transdermal, EVERY 72 HOURS, First dose on Thu05/10/25 at 0700, Until Discontinued, Pre-op Patch Clylihv9305/10/2025 6:30 AM EST1 mg sodium chloride 0.9 % iv infusion Intravenous, at 25 mL/hr, CONTINUOUS, Starting on Thu05/10/25 at 1030, Until Thu05/12/25 at 1721 IV New Bag05/11/2025 8:51 AM EST25 mL/hrdocumented in this encounter Active and Recently Administered Medications Times are shown in EST.Medication Order// acetaminophen (TYLENOL) tablet 1,000 mg, Oral, EVERY 6 HOURS, First dose on Thu05/10/25 at 0700, Until Discontinued, Pre-op * 0630 (Given - Provider: Aleah Garzon RN) * 1344 (Given - Provider: Martha Mckinnon RN) * 2040 (Given - Provider: Neha Lazo RN) * 0255 (Given - Provider: Neha Lazo RN) * 0900 (Hold/Not Given - Provider: Davis Bray RN - Comment: dupicate order) * 1400 (Hold/Not Given - Provider: Davis Bray RN - Reason: Patient refused) * 2000 (Hold/Not Given - Provider: Felix Hoyt RN - Reason: Previously Administered) * 0200 (Hold/Not Given - Provider: Felix Hoyt RN - Reason: Patient sleeping) * 1019 (Given - Provider: Amanda Tolentino RN) * 1400 (Hold/Not Given - Provider: Amanda Tolentino RN - Reason: Patient refused) acetaminophen (TYLENOL) tablet 1,000 mg, Oral, EVERY 8 HOURS, First dose on Thu05/10/25 at 0700, Until Discontinued * 0700 (Hold/Not Given - Provider: Martha Mckinnon RN - Reason: Off of unit (test/procedure/OR)) * 1500 (Hold/Not Given - Provider: Martha Mckinnon RN - Reason: Previously Administered) * 0000 (Hold/Not Given - Provider: Neha Lazo RN - Reason: Previously Administered) * 0850 (Given - Provider: Davis Bray RN) * 1355 (Hold/Not Given - Provider: Davis Bray RN - Reason: Patient refused) * 2127 (Given - Provider: Felix Hoyt RN) * 2300 (Hold/Not Given - Provider: Felix Hoyt RN - Reason: Previously Administered) * 0700 (Hold/Not Given - Provider: Amanda Tolentino RN - Reason: Patient sleeping) * 1500 (Hold/Not Given - Provider: Amanda Tolentino RN - Reason: Patient refused) budesonide-formoterol (SYMBICORT) 80-4.5 MCG/ACT inhaler 2 Puff, Inhalation, 2 TIMES DAILY RT, First dose on Thu05/10/25 at 1200, Until Discontinued, Post-op * 1200 (Hold/Not Given - Provider: Janie Hardy, RT - Reason: Previously Administered) * 2243 (Given - Provider: Sharmin Zee) * 0838 (Given - Provider: Milena Heart, RT) * 2003 (Given - Provider: Cheyenne Sanchez, RT) * 09 (Given - Provider: Brooklynn Danielle, RT) ceFAZolin Sodium (ANCEF) 2,000 mg in sodium chloride 0.9 % 100 mL (V2B) (COMPLETED) 2,000 mg, Intravenous, EVERY 8 HOURS, 2 doses, First dose (after last reorder) on Thu05/10/25 at 1600, Last dose on Thu05/11/25 at 0000 * 1529 (IV New Bag - Provider: Martha Mckinnon RN) * 0001 (IV New Bag - Provider: Neha Lazo, CARLOTTA) ceFAZolin Sodium (ANCEF) 2,000 mg in sterile water for injection 10 mL IV push (CANCELED) 2,000 mg, Intravenous, EVERY 8 HOURS ANTIBIOTIC, 2 doses, First dose on Thu05/10/25 at 0700, Last dose on Thu05/10/25 at 1400 * 0700 (Hold/Not Given - Provider: Martha Mckinnon RN - Reason: Off of unit (test/procedure/OR)) * 0756 (IV New Bag - Provider: Mil Wolfe MD) celecoxib (CeleBREX) capsule 200 mg, Oral, 2 TIMES DAILY, First dose on Thu05/10/25 at 0700, Until Discontinued, Pre-op * 0631 (Hold/Not Given - Provider: Aleah Garzon RN - Reason: Patient refused - Comment: d/t mass on liver.) * 2039 (Given - Provider: Neha Lazo RN) * 0850 (Given - Provider: Davis Bray RN) * 212 (Given - Provider: Felix Hoyt, CARLOTTA) * 1019 (Given - Provider: Amanda Tolentino, [place]) docusate sodium (COLACE) capsule 100 mg, Oral, 2 TIMES DAILY, First dose on Thu05/10/25 at 0900, Until Discontinued * 0900 (Hold/Not Given - Provider: Martha Mckinnon RN - Reason: Off of unit (test/procedure/OR)) * 204 (Given - Provider: Neha Lazo, CARLOTTA) * 09 (Hold/Not Given - Provider: Davis Bray RN - Reason: Patient refused) * 212 (Hold/Not Given - Provider: Felix Hoyt, CARL[place] - Reason: Patient refused) * 0900 (Hold/Not Given - Provider: Amanda Tolentino RN - Reason: Patient refused) gabapentin (NEURONTIN) capsule (COMPLETED) 600 mg, Oral, ONCE, 1 dose, On Thu05/10/25 at 0700, Pre-op * 0631 (Given - Provider: Aleah Garzon RN) montelukast (SINGULAIR) tablet 10 mg, Oral, EVERY EVENING, First dose on Thu05/10/25 at 1800, Until Discontinued, Post-op * 2041 (Given - Provider: Neha Lazo, CARLOTTA) * 2128 (Given - Provider: Felix Hoyt, [place]LOT[place]) nicotine (NICODERM CQ) 14 mg/24 hr patch 14 mg, Transdermal, DAILY, First dose (after last modification) on Thu05/11/25 at 0100, Until Discontinued * 0115 (Patch Applied - Provider: Neha Lazo, CARLOTTA) * 0115 (Patch Removal - Provider: Felix Hoyt, CARLOT[place]) * 1019 (Patch Applied - Provider: Amanda Tolentino RN) povidone-iodine 10 % swab (COMPLETED) 4 Swab, Nasal, Once, 1 dose, On Thu05/10/25 at 0700, Pre-op * 0633 (Given - Provider: Aleah Garzon RN) scopolamine (TRANSDERM-SCOP) 1 MG/3DAYS patch 1 mg, Transdermal, EVERY 72 HOURS, First dose on Thu05/10/25 at 0700, Until Discontinued, Pre-op * 0630 (Patch Applied - Provider: Aleah Garzon RN) Medication Order511// HYDROmorphone (DILAUDID) 1mg/mL HEALTH FACILITIES SURVEYOR (CANCELED) * 1013 (IV New Bag - Provider: Moreno Kamara RN) * 1150 (IVF Infusing Upon Transfer - Provider: Martha Mckinnon, CARLOTTA) * 194 (Shift Change Verification - Provider: Martha Mckinnon, CARLOTTA) * 0726 (Shift Change Verification - Provider: Neha Lazo, CARLOTTA) lactated ringers iv infusion Intravenous, at 75 mL/hr, CONTINUOUS, Starting on Thu05/10/25 at 0700, Until Thu05/12/25 at 1721 * 1017 (IV New Bag - Provider: Moreno Kamara RN) * 0851 (IV New Bag - Provider: Davis Bray RN) * 211 (IV New Bag - Provider: Keisha Sesay RN) * 232 (IV New Bag - Provider: Felix Hoyt RN) * 172 (Due: Order Ending - Provider: System Discharge - Comment: [Order ends at this time. Document the following action when infusion is complete: IV Stop]) sodium chloride 0.9 % iv infusion Intravenous, at 25 mL/hr, CONTINUOUS, Starting on Thu05/10/25 at 1030, Until Thu05/12/25 at 1721 * 1030 (Hold/Not Given - Provider: Martha Mckinnon RN - Reason: Not indicated - Comment: MIVF running, see MAR) * 0851 (IV New Bag - Provider: Davis Bray RN) * 172 (Due: Order Ending - Provider: System Discharge - Comment: [Order ends at this time. Document the following action when infusion is complete: IV Stop]) Medication Order/ bisacodyl (DULCOLAX) 10 MG suppository 10 mg, Rectal, DAILY PRN, Starting on Thu05/10/25 at 0620, Until Thu05/12/25 at 1721, Constipation, if NPO or no BM from Milk of Magnesia within 6 hours BUPivacaine (PF) (MARCAINE) 30 mL, EPINEPHrine (ADRENALIN) 1 mL, lidocaine- EPINEPHrine (XYLOCAINE) 1 %-1:750682 20 mL, dose administered = 70 mL given in sodium chloride 0.9 % 551 mL mixture (CANCELED) PRN, Starting on Thu05/10/25 at 0803, Until Thu05/10/25 at 0951 * 0803 (Given - Provider: Pj Fuentes MD) BUPivacaine (PF) (MARCAINE) 30 mL, EPINEPHrine (ADRENALIN) 1 mL, lidocaine- EPINEPHrine (XYLOCAINE) 1 %-1:241946 30 mL, gentamicin 40 mg, dose administered = 481 mL given in sodium chloride 0.9 % 92 mL irrigation (CANCELED) PRN, Starting on Thu05/10/25 at 0836, Until Thu05/10/25 at 0951 * 0836 (Given - Provider: Pj Fuentes MD) gentamicin 40 mg, dose administered = 1 Each in sodium chloride 500 mL irrigation (CANCELED) PRN, Starting on Thu05/10/25 at 0806, Until Thu05/10/25 at 0951 * 0806 (Given - Provider: Pj Fuentes MD) gentamicin/ NACL pour 4 mL, gelatin adsorbable (SURGIFOAM) 1 g, thrombin 5,000 units 4 mL, dose administered = 1 Each topical mixture (CANCELED) PRN, Starting on Thu05/10/25 at 0806, Until Thu05/10/25 at 0951 * 0806 (Given - Provider: Pj Fuentes MD) hydrOXYzine (ATARAX) tablet 25 mg, Oral, EVERY 6 HOURS PRN, Starting on Thu05/10/25 at 0621, Until Thu05/12/25 at 1721, Anxiety naloxone (NARCAN) 0.4 MG/ML injection 0.4 mg, Intravenous, PRN, Starting on Thu05/10/25 at 0952, Until Thu05/12/25 at 1721, RespiratoryRate Less Than 8 for adults and less than 12 for Peds or for suspected overdose ondansetron (ZOFRAN) 4 MG/2ML injection(Linked Group 1) 4 mg, Intravenous, EVERY 6 HOURS PRN, Starting on Thu05/10/25 at 0621, Until Thu05/12/25 at 1721,Nausea, Vomiting * 0044 (Given - Provider: Mikki Hutchison RN) * 1400 (Given - Provider: Davis Bray RN) * 2128 (Given - Provider: Felix Hoyt, CARLOTTA) ondansetron (ZOFRAN-ODT) disintegrating tablet(Linked Group 1) 4 mg, Oral, EVERY 6 HOURS PRN, Starting on Thu05/10/25 at 0621, Until Thu05/12/25 at 1721, Nausea, Vomiting * 0044 (See Alternative - Provider: Mikki Hutchison RN) * 1400 (See Alternative - Provider: Davis Bray RN) * 2128 (See Alternative - Provider: Felix Hoyt, CARLOTTA) oxyCODONE immediate release tablet 5 mg, Oral, EVERY 4 HOURS PRN, Starting on Thu05/11/25 at 1511, Until Thu05/12/25 at 1721, Moderate Pain (pain score 4,5,6) oxyCODONE immediate release tablet 10 mg, Oral, EVERY 4 HOURS PRN, Starting on Yas 05/11/25 at 1511, Until Thu05/12/25 at 1721, Severe Pain (pain score 7,8,9,10) vancomycin (VANCOCIN) 1 g injection (CANCELED) PRN, Starting on Thu05/10/25 at 0837, Until Thu05/10/25 at 0951, Intra-op * 0837 (Given - Provider: Pj Fuentes MD) Order Group 1: ondansetron (ZOFRAN) 4 MG/2ML injectionJump to med 4 mg, Intravenous, EVERY 6 HOURS PRN, Starting on Thu05/10/25 at 0621, Until Thu05/12/25 at 1721,Nausea, Vomiting Or ondansetron (ZOFRAN-ODT) disintegrating tabletJump to med 4 mg, Oral, EVERY 6 HOURS PRN, Starting on Thu05/10/25 at 0621, Until Thu05/12/25 at 1721, Nausea, Vomiting documented in this encounter Care Teams Team MemberRelationshipSpecialtyStart DateEnd Date Pj Fuentes MD [address] [place] [address] PhysicianOrthopaedic Surgery01/28/25 Heather Lorenz, NETWORK OPERATIONS MANAGER-SPEECH INSTRUCTOR [address] [place] [address] QBSBcjycprujbeyer73/6/25documented as of this encounter
--- OUTSIDE RECORDS SUMMARY | 2025-05-10 07:21 | XMS_ITS | Encounter Summary ---
Author Organization [facility] Address [address] [place] [address] Care Team Providers Care Fountain Vending Mechanic Name Role Phone Pj Fuentes MD Unavailable [phone] Heather Lorenz APRN-LICHA Unavailable [phone] Reason for Visit * Auth/Cert (Routine)SpecialtyDiagnoses / ProceduresReferred By ContactReferred To ContactGeneral Surgery Diagnoses Failed back surgical syndrome Failed back 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] Procedures EXPLORATION, SPINAL FUSION REPAIR, DURAL/CSF LEAK, NOT REQUIRING LAMINECTOMY REMOVAL, POSTERIOR NONSEGMENTAL INSTRUMENTATION REMOVAL, POSTERIOR SEGMENTAL INSTRUMENTATION POSTERIOR SEGMENTAL INSTRUMENTATION; 3-6 VERTEBRAL SEGMENTS Exploration L5-S1 fusion with removal hardware, reinstrumentation, repair dural tear Pj Fuentes MD [address] [place], [place] [address] Phone: tel: fax: [facility] [address] [place] [phone] Phone: tel: Referral IDStatusReasonStart DateExpiration DateVisits RequestedVisits [id number] Encounter Details DateTypeDepartmentCare Team (Latest Contact Info)Breaoirgoku06/12/2025 7:21 AM ESTAnesthesia Event [facility] Main OR [address] [place] [address] Campos Waller MD [address] [place] [address] Price Felton MD [address] [place] [address] Anesthesia Record Procedure NameResponsible AnesthesiologistAnesthesia Start TimeAnesthesia Stop TimeREMOVAL POSTERIOR SPINAL INSTRUMENTATION, L5-S1 POSTERIOR SPINAL FUSION (Back)Campos Waller MD05/10/25 65730405/10/25 0817UbbvJqtiAnqqxHvmvmdw46/12/2025 [id number] Start Lphb3470Ef Vlxhx2917Iehwmcpgcb TimeoutMember of Anesthesia team and circulating RN verified patient identity, procedure to be performed, and presence of signed surgical consent form prior to induction of anesthesia.0726 Preinduction VerifyThe anesthesia team has reviewed the patient's vital signs immediately prior to induction. Mil Wolfe MD0728An Xrrptumpm4911Tm Intubation 0741Anesthesia Emciyka5111Wcblgjkrg Lwcza9468Vktqesmfy Mgl4426Vj Extubation Sustained headlift for 5 seconds, extubated awake, pharynx suctioned and clear, patient is maintaining patent airway, and transport to PACU/ICU with supplemental [id number] stop amob1333PRME HandoffI completed my SBAR handoff to the receiving nurse in the receiving unit.0959AN Stop* NameTotalMidazolam 1??mg/mL2 mgfentanyl (SUBLIMAZE) injection 50 mcg/mL100 mcgLidocaine (Cardiac) 20 mg/mL IV100 mgPropofol 10??mg/mL130 mgRocuronium 50??mg/5mL90 mg Remifentanil 1??mg0.26 mgHYDROmorphone (DILAUDID) injection 1 mg/mL1 mg Ondansetron 4??mg/2mL4 mgDexamethasone (PF) 10??mg/mL10 mgPhenylephrine 10??mg/mL950 mcgsugammadex (BRIDION) injection 200 mg200 mgceFAZolin Sodium (ANCEF) 2,000 mg in sterile water for injection 10 mL IV push2,000 mgKetorolac 30??mg/mL30 mgLactated Wozbxni241 mLLactated Erjzybl293 mL * Agents Name O2 Air eSevoflurane iSevoflurane * Blood No blood administrations on file. CveqQwokfpdNnwqzdlpqOzzpgtwFfgfv29/12/25; 0836; N/A; Back; Surgical - Incision; 12cm incision closed with suture and ukkgvyyfn74/12/25 0836 by Marcos Huerta, stamping bench die maker Drain05/10/25; 0921; Hemovac / Davol; # 1; 10 fr; Posterior; Back 05/10/25 0921 by Marcos Huerta, RNPeripheral IV Line05/10/25; 0639; 18 gauge; Right; Arm; 05/12/25; 44557107/10/24 0639 by Aleah Garzon RN05/12/25 1456 by Amanda Tolentino, RNAdvanced Airway3; 05/10/25; 0730; ETT, Oral; #7; Equal bilateral breath sounds, CO2 confirmed; 05/10/25; [id number]/10/25 0730 by Matthew Wolfe MD05/10/25 0948 by Mil Wolfe MDPeripheral IV Line05/10/25; 0740; 18 gauge; Left; Hand; 05/12/25; 35297307/10/24 0740 by Mil Wolfe MD05/12/25 1104 by Amanda Tolentino RNdocumented in this encounter Social History Tobacco UseTypesPacks/DayYears UsedDateSmoking Tobacco: Every DayCigarettes Smokeless Tobacco: Never Comments:vapes Alcohol UseStandard Drinks/WeekCommentsNot Currently0 (1 standard drink = 0.6 oz pure alcohol)[facility] UtilitiesAnswerDate RecordedIn the past 12 months has the [employer], gas, oil, or water [employer] threatened to shut off services in your [...] RecordedIn the past 12 months has the ur[employer], gas, oil, or water [employer] threatened to shut off services in your home?No05/10/2025Substance UseTypesUse/WeekCommentsYesMarijuana/THCdaily CommentsNoSex and Gender InformationValueDate RecordedSex Assigned at BirthNot on fileLegal MkyXrfqem00/02/2025 9:50 AM EDTGender IdentityNot on file Sexual OrientationNot on filedocumented as of this encounter OR Notes * Anesthesia Preprocedure Evaluation - Campos Waller MD - 05/09/2025 11:31 AM EST ASA: 3 No history of anesthetic complications NPO status: Greater than 8 hours Past Medical History and Review of Systems Pulmonary (+) asthma, a smoker (vape and marijuana everyday) (-) shortness of breath Dental - negative ROS 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 Findings suggestive of arachnoiditis. Cardiovascular (+) hypertension (-) CAD, CHF No previous ECG available GI/Hepatic/Renal (+) GERD (-) renal disease, liver disease Heme/Other (+) anemia (-) bleeding disorder Other ROS: 35y F s/p L5-S1 fusion with late I&D for a dural tear, significant L lower extremity dysesthesias. Presents for exploration, refusion +/- dural repair Physical Exam Airway Mallampati: I TM distance: Adequate Micrognathia: Not present Jaw opening: Adequate Neck flexion: Adequate Dental PE (+) intact Pulmonary - pulmonary exam normal Comment: Chest clear to auscultation bilaterally Cardiovascular - cardiovascular exam normal Comment: RRR with S1S2; no murmurs, gallops, or rubs Neuro - neurological exam normal Comment: Awake, alert, oriented, No motor deficits and sensation grossly intact Plan Anesthesia plan: general; (ETT) Anesthesia risks / alternatives discussed pre-op Questions answered / anesthesia plan accepted Past medical history, surgical history, allergies, and medications reviewed. Pertinent laboratory tests, EKG, imaging, and consults reviewed and I have personally seen and evaluated the patient, repeating orellana portions of the history and physical examination. Attestation: Anesthesia options were discussed with the patient and/or legal field representatives director. The risks, benefitsand alternatives were reviewed. Questions regarding anesthesia were answered. Patient and/or legal field representatives director knows such anesthetics and procedures may be performed by Resident physicians, Certified Anesthesiologist Assistants, or Certified Nurse Anesthetists under the supervision of a physician. The patient /or the patient???s legal field representatives director agree with the plan for anesthesia. [employer]HPATFORM documented in this encounter Miscellaneous Notes * Addendum Note - Felix Gong MD - 05/12/2025 9:36 AM EST Addendum created 05/12/25935 by Felix Gong MD Clinical Note Signed * Addendum Note - Felix Gong MD - 05/11/2025 8:22 AM EST Addendum created 05/11/25821 by Felix Gong MD Clinical Note Signed * Anesthesia Transfer Of Care - Mil Wolfe MD - 05/10/2025 9:59 AM EST Images from the original note were not included. Patient taken to PACU. Patient was awake, comfortable, and stable on arrival. Anesthesia Transfer of Care Note Past Medical History: Medical History[1] Sleep Apnea/Positive STOP-BANG: No Problem List: Problem List[2] Past Surgical History: There is no previous surgical history on file. Allergies: Hydrocodone-acetaminophen Basic Operating Room Facts: Surgeon(s): Pj Fuentes MD Anesthesiologist: Campos Waller MD IMPROVEMENT ANALYST: Samantha Hernandez APRN-CRNA Table Cut Off Saw Operator: Mil Wolfe MD REMOVAL POSTERIOR SPINAL INSTRUMENTATION, L5-S1 POSTERIOR SPINAL FUSION (Back) Intraoperative Events: No acute event ASA: 3 EBL: Not documented Urine Not documented Lactated Ringers and NaCl 0.9%: Fluid Totals (Filter: LR and NaCl 0.9% Medications Shown) Medication Calculated Total Lactated Ringers 900 mL / 1 bag Lactated Ringers 0 mL / 1 bag Cell Saver: Not documented Blood Volume Values: Blood Products None MTP Blood: MTP PRBC: Not documented MTP FFP: Not documented MTP PLT: Not documented MTP Cryo: Not documented MTP Whole Blood: Not documented Current Vasoactive Medications: {Vasoactive Medications: None Lines, Drains, Airways Peripheral IV Access: 05/10/25 0639 18 gauge Right Arm (Active) Site Assessment WNL;Dressing intact 05/10/2534 Infusion Status Port #1 Capped;Patent;Positive blood return 05/10/25633 Peripheral IV Access: 05/10/25 0740 18 gauge Left Hand (Active) Airway Insertion Details [REMOVED] Advanced Airway: ETT, Oral #7 (Removed) 05/10/25 0730 Pre-Oxygenation/ Induction: Mask Rapid Sequence Induction?: Mask Ventilation: Easy Blade Type: Mac Blade Size: 3 Visualization: Grade 1 Airway Type: ETT, Oral Airway Size: #7 Post Insertion Assessment: Confirmation: Equal bilateral breath sounds, CO2 confirmed # Attempts >1: Special Equipment: Present on Admission?: Previously Removed / Not Present: Removal Reason: Not Removed at Discharge: Removed 05/10/25 0948 Location (cm) 22 05/10/25729 Measured from: Upper Lip 05/10/25729 Secured via: Taped 05/10/25729 Site Assessment WNL 05/10/25729 All non-working IVs have been removed: N/A Laboratory Data: CBC (last 3 years, up to 8 values) 05/02/2025 1:31 PM WBC 7.1 RBC 4.41 Hgb 10.3 Hct 31.4 MCV 71 RDW 16.9 Plt 225 BMP (last 3 years, up to 8 values) 05/02/2025 1:31 PM Na 137 K 4.5 Cl 104 CO2 25 Gap 13 Glu 83 BUN 12 Cr 0.75 Ca 9.4 eGFR 107 Basic Metabolic Panel No lab values to display. INR (no units) Date Value 05/02/2025 0.93 No result for BNP LFT's (last 3 years, up to 8 values) 05/02/2025 1:31 PM T Prot 7.0 Albumin 4.5 D Bili <0.05 T Bili 0.2 Alk Phos 55 ALT 8 AST 14 Arterial Blood Gases None Hand off Completed: Yes 1. The patient was identified. 2. Pertinent medical history was relayed. 3. A brief discussion was had about any pertinent surgical/ procedural issues. 4. Intraoperative/ anesthetic management issue and concerns were discussed. 5. Plans for the early post-operative period relayed. 6. An opportunity for questions and acknowledgment of understanding of the report was received. Mil Wolfe MD [1] No past medical history on file. [2] Patient Active Problem List Diagnosis Code Failed back surgical syndrome M96.1 Anemia D64.9 Asthma J45.909 Calculus of kidney N20.0 Gastroesophageal reflux disease with esophagitis K21.00 Hypertension I10 Liver mass R16.0 Migraine headache G43.909 Posttraumatic stress disorder F43.10 documented in this encounter Plan of Treatment DateTypeDepartmentCare Team (Latest Contact Info)Hywnojwicwf83/25/2025 11:00 AM ESTOffice Visit [facility] Orth[facility] Spine [address] [place] [address] Pj Fuentes MD [address] [place] [address] documented as of this encounter Visit Diagnoses Not on filedocumented in this encounter Administered Medications Medication OrderMAR ActionAction DateDoseRateSite ceFAZolin Sodium (ANCEF) 2,000 mg in sterile water for injection 10 mL IV push 2,000 mg, Intravenous, EVERY 8 HOURS ANTIBIOTIC, 2 doses, First dose on Thu05/10/25 at 0700, Last dose on Thu05/10/25 at 1400 IV New Bag05/10/2025 7:56 AM EST2,000 mg dexAMETHasone sod phosphate PF (DECADRON) 10 MG/ML injection Intravenous, PRN, Starting on Thu05/10/25 at 0728, Until Thu05/10/25 at 0959, Intra-op Given05/10/2025 7:28 AM EST10 mg fentaNYL (SUBLIMAZE) 100 MCG/2ML injection Intravenous, PRN, Starting on Thu05/10/25 at 0728, Until Thu05/10/25 at 0959, Intra-op Given05/10/2025 9:59 AM EST25 anlSaomw96/12/2025 7:28 AM EST75 mcg HYDROmorphone (DILAUDID) 1 mg/mL injection Intravenous, PRN, Starting on Thu05/10/25 at 0758, Until Thu05/10/25 at 0959, Intra-op Given05/10/2025 9:54 AM EST0.4 yaNotnf3005/10/2025 9:42 AM EST0.2 mgGiven 05/10/2025 7:58 AM EST0.4 mg ketorolac (TORADOL) 30 MG/ML injection Intravenous, PRN, Starting on Thu05/10/25 at 0852, Until Thu05/10/25 at 0959 Given05/10/2025 8:52 AM EST30 mg lactated ringers iv infusion Intravenous, PRN CONTINUOUS, Starting on Thu05/10/25 at 0721, Until Thu05/10/25 at 0959 IV New Bag05/10/2025 7:21 AM EST lactated ringers iv infusion Intravenous, PRN CONTINUOUS, Starting on Thu05/10/25 at 0741, Until Thu05/10/25 at 0959 IV New Bag05/10/2025 7:41 AM EST Lidocaine (Cardiac) PF (XYLOCAINE) 100 MG/5ML injection Intravenous, PRN, Starting on Thu05/10/25 at 0728, Until Thu05/10/25 at 09, Intra-op Given05/10/2025 7:28 AM ZNR380 mg midazolam (VERSED) 2 MG/2ML injection Intravenous, PRN, Starting on Thu05/10/25 at 0718, Until Thu05/10/25 at 09, Intra-op Given05/10/2025 7:18 AM EST2 mg ondansetron (ZOFRAN) 4 MG/2ML injection Intravenous, PRN, Starting on Thu05/10/25 at 0917, Until Thu05/10/25 at 09, Intra-op Given05/10/2025 9:17 AM EST4 mg phenylephrine (VAZCULEP) 10 MG/ML injection SOLN Intravenous, PRN, Starting on Thu05/10/25 at 0728, Until Thu05/10/25 at 09, Intra-op Given05/10/2025 9:22 AM JBW212 ptnZvspm99/12/2025 9:16 AM UOL095 mcgGiven 05/10/2025 9:04 AM LYY655 mcg propofol (DIPRIVAN) 1000 MG/100ML infusion Intravenous, PRN, Starting on Thu05/10/25 at 0728, Until Thu05/10/25 at 0959 Given05/10/2025 7:28 AM AMK810 mg remifentanil (ULTIVA) 1 MG injection Intravenous, PRN CONTINUOUS, Starting on Thu05/10/25 at 0759, Until Thu05/10/25 at 0959, Intra-op IV Rate Jkvtsc3105/10/2025 9:29 AM EST0.03 mcg/kg/minIV New Bag05/10/2025 7:59 AM EST0.05 mcg/kg/min rocuronium (ZEMURON) 50 MG/5ML injection Intravenous, PRN, Starting on Thu05/10/25 at 0729, Until Thu05/10/25 at 09, Intra-op Given05/10/2025 8:31 AM EST20 mdLbrcc1205/10/2025 7:29 AM EST70 mg sugammadex (BRIDION) 200 MG/2ML injection SOLN Intravenous, PRN, Starting on Thu05/10/25 at 0942, Until Thu05/10/25 at 1000, Intra-op Given05/10/2025 9:42 AM JHT192 mgdocumented in this encounter Care Teams Team MemberRelationshipSpecialtyStart DateEnd Date Pj Fuentes MD [address] [place] [address] PhysicianOrthopaedic Surgery01/28/25 Heather Lorenz, BROADCAST SUPERVISOR-VACUUM BOTTLE ASSEMBLER [address] [place] [address] NZXOkunvujnzensag97/6/25documented as of this encounter
--- OUTSIDE RECORDS SUMMARY | 2025-05-10 07:27 | XMS_ITS | Encounter Summary ---
Author Organization [facility] Address [address] [place], [place] [address] Care Team Providers Care Websphere Process Server Developer Name Role Phone Pj Fuentes MD Unavailable [phone] Heather Lorenz APRN-MOLDED PARTS INSPECTOR Unavailable [phone] Reason for Visit * Auth/Cert (Routine)SpecialtyDiagnoses / ProceduresReferred By ContactReferred To ContactGeneral Surgery Diagnoses Failed back surgical syndrome Failed back 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] Procedures EXPLORATION, SPINAL FUSION REPAIR, DURAL/CSF LEAK, NOT REQUIRING LAMINECTOMY REMOVAL, POSTERIOR NONSEGMENTAL INSTRUMENTATION REMOVAL, POSTERIOR SEGMENTAL INSTRUMENTATION POSTERIOR SEGMENTAL INSTRUMENTATION; 3-6 VERTEBRAL SEGMENTS Exploration L5-S1 fusion with removal hardware, reinstrumentation, repair dural tear Pj Fuentes MD [address] [place] [phone] Phone: tel: fax: [facility] [address] [place] [phone] Phone: tel: Referral IDStatusReasonStart DateExpiration DateVisits RequestedVisits [id number] Encounter Details DateTypeDepartmentCare Team (Latest Contact Info)Jrziltauxms94/12/2025 7:27 AM EST - 05/10/2025 11:59 PM ESTHospital Encounter [facility] Radiology [address] [place], [place] [phone] Pj Fuentes MD [address] [place], [place] [phone] Discharge Disposition: HOV Discharge Social History Tobacco UseTypesPacks/DayYears UsedDateSmoking Tobacco: Every DayCigarettes Smokeless Tobacco: Never Comments:vapes Alcohol UseStandard Drinks/WeekCommentsNot Currently0 (1 standard drink = 0.6 oz pure alcohol)[facility] UtilitiesAnswerDate RecordedIn the past 12 months has the [employer], oil, or water [employer] threatened to shut off services in your [...] RecordedIn the past 12 months has the [employer], oil, or water [employer] threatened to shut off services in your home?No05/10/2025Substance UseTypesUse/WeekCommentsYesMarijuana/THCdaily CommentsNoSex and Gender InformationValueDate RecordedSex Assigned at BirthNot on fileLegal PdiDoyuln55/02/2025 9:50 AM EDTGender IdentityNot on file Sexual OrientationNot on filedocumented as of this encounter Medications at Time of Discharge [...] needed for Pain.4documented as of this encounter Plan of Treatment DateTypeDepartmentCare Team (Latest Contact Info)Rmffebhuafs63/25/2025 11:00 AM ESTOffice Visit [facility] Orthopedic Spine [address] [place] [address] Pj Fuentes MD [address] [place] [address] documented as of this encounter Procedures Procedure NamePriorityDate/TimeAssociated DiagnosisCommentsXR FLUORO SUPPORT ONLY IN SURGERY (ERIC)STAT107/10/2024 9:51 AM ESTdocumented in this encounter Results * XR FLUORO SUPPORT ONLY IN SURGERY (ERIC) (05/10/2025 9:51 AM EST)Specimen (Source)Anatomical Location / LateralityCollection Method / VolumeCollection TimeReceived Time Narrative Authorizing ProviderResult TypeResult StatusPj Fuentes MDEC DIAGNOSTIC X-RAYFinal Result documented in this encounter Visit Diagnoses Not on filedocumented in this encounter Care Teams Team MemberRelationshipSpecialtyStart DateEnd Date Pj Fuentes MD [address] [place] [phone] PhysicianOrthopaedic Surgery01/28/25 Heather Lorenz APRN-LICHA [address] [place] [address] ADYRacaixuutidkyq54/6/25documented as of this encounter
--- OUTSIDE RECORDS SUMMARY | 2025-05-10 07:30 | XMS_ITS | Encounter Summary ---
Author Organization [facility] Address [address] [place], [place] [id number] Care Team Providers Care Financial Health Counselor Name Role Phone Pj Fuentes MD Unavailable [phone] Heather Lorenz APRN-LETTER CARRIER Unavailable [phone] Reason for Visit * Auth/Cert (Routine)SpecialtyDiagnoses / ProceduresReferred By ContactReferred To ContactGeneral Surgery Diagnoses Failed back surgical syndrome Failed back 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] Procedures EXPLORATION, SPINAL FUSION REPAIR, DURAL/CSF LEAK, NOT REQUIRING LAMINECTOMY REMOVAL, POSTERIOR NONSEGMENTAL INSTRUMENTATION REMOVAL, POSTERIOR SEGMENTAL INSTRUMENTATION POSTERIOR SEGMENTAL INSTRUMENTATION; 3-6 VERTEBRAL SEGMENTS Exploration L5-S1 fusion with removal hardware, reinstrumentation, repair dural tear Pj Fuentes MD [address] [place] [address] Phone: tel: fax: [facility] [address] [place] [phone] Phone: tel: Referral IDStatusReasonStart DateExpiration DateVisits RequestedVisits [id number] Encounter Details DateTypeDepartmentCare Team (Latest Contact Info)Ascgyjnjmye10/12/2025 7:30 AM EST - 05/10/2025 11:03 AM ESTSurgery [facility] Main OR [address] [place], [place] [id number] Pj Fuentes MD [address] [place] [address] REMOVAL POSTERIOR SPINAL INSTRUMENTATION, L5-S1 POSTERIOR SPINAL FUSION Surgery Details Date/TimeStatusLocationORServicePatient ClassCase ClassCase TypeTrauma Case? 05/10/2025 7:30 AMPostedPERIOPERATIVE SERVICESMAIN OR 01NeurosurgerySurgery AdmitElectiveRoutine scheduledPanel 1 ProcedureLRBAnesOp RegionWound Class CommentsREMOVAL POSTERIOR SPINAL INSTRUMENTATION, L5-S1 POSTERIOR SPINAL FUSION N/AGeneralBackClean SurgeonSurgeon JennifericePanelPj Fuentes MDPrimaryNeurosurgery1 Case Notes 03/22 LMOM documented in this encounter Social History Tobacco UseTypesPacks/DayYears UsedDateSmoking Tobacco: Every DayCigarettes Smokeless Tobacco: Never Comments:vapes Alcohol UseStandard Drinks/WeekCommentsNot Currently0 (1 standard drink = 0.6 oz pure alcohol)[facility] UtilitiesAnswerDate RecordedIn the past 12 months has the [employer], gas, oil, or water [place] threatened to shut off services in your [...] RecordedIn the past 12 months has the electric, gas, oil, or water company threatened to shut off services in your home?No05/10/2025Substance UseTypesUse/WeekCommentsYesMarijuana/THCdaily CommentsNoSex and Gender InformationValueDate RecordedSex Assigned at BirthNot on fileLegal SioOnqyxf57/02/2025 9:50 AM EDTGender IdentityNot on file Sexual OrientationNot on filedocumented as of this encounter Last Filed Vital Signs Vital SignReadingTime TakenCommentsBlood Kzbsxzxk559/80107/10/2024 11:00 AM EST Nwdjq675505/10/2025 11:00 AM TERBificzwhebf00 ??C (98.6 ??F)05/10/2025 10:15 AM ESTRespiratory Dybc680907/10/2024 11:00 AM ESTOxygen Lqgkhwtetj97%05/10/2025 11:00 AM ESTInhaled Oxygen Concentration--Yuvxja71.1 kg (117 lb)05/10/2025 6:17 AM FFISxghmv039.4 cm (5')05/10/2025 6:17 AM ESTBody Mass Index22.8505/10/2025 11:50 AM ESTdocumented in this encounter Discharge Instructions * Discharge Instructions* Eran Manzo MD - 05/12/2025 8:26 AM EST DISCHARGE INSTRUCTIONS Doug Gomez [id number] The following is a brief overview of [...] do not drive or make any important de cisions as narcotics can impair your judgement. Please take docusate (Colace) when taking narcoticsto prevent constipation. Percocet contains acetaminophen (Tylenol). You may not take more than 4000mg of acetaminophen per day from all sources. [...] surgery team. Diet: Regular diet Follow-Up: Call [facility] during normal business hours for your follow up appointments. -Please call the clinic at [phone] to schedule your post-op follow-up appointment with [...] as of this encounter Progress Notes * Kaylyn Bhat RN - 05/12/2025 2:54 PM EST CM following, chart review complete. No social/ home concerns brought to CM's attention during hospital admission. Per PT consult, patient is anticipated to be functionally appropriate for discharge home with recommendations for Outpatient PT when deemed appropriate by MD. Per chart review patient will have 19/01 assistance at home. Patient/ family to arrange transportation to and from appointments as well as to home at discharge. Spine post OP appointment scheduled for 05/23/2025. CM to follow POC and assist with discharge planning and needs as warranted. Kaylyn MAGALLANES, personal companion Secure Epic Chat Available Thursday-Thursday [phone] 05/12/25 1450 Assessment and Discharge Planning Evaluation READMISSION LESS THAN 30 DAYS No READMISSION RISK SCORE IS Low Risk INTERVIEWED Chart Review COGNITIVE STATUS Oriented FUNCTIONAL STATUS PRIOR TO ADMISSION Ambulates with coroner/medical examiner (cane, walker, etc.) (Rollator per chart review) HAS ADVANCE DIRECTIVE ON FILE No LIVING SITUATION Home with Family CONNECTED TO MENTAL HEALTH SERVICES Unknown CONNECTED TO COMMUNITY SERVICES Unknown CONNECTED TO SUBSTANCE ABUSE SERVICES Unknown ADMISSION INSURANCE Medicaid Medicaid HMO - [employer] Medicaid TRANSPORTATION TO AND/OR FROM APPOINTMENTS Family/Friend [...] acute events overnight. Pain well controlled off NUT SIFTER. Denies CP, SOB, fevers. Jaramillo placed for [...] and PRN Dulcolax). - Multimodal pain therapy; NUT SIFTER until POD1 then transition to POPM, pain [...] please page ortho consult pagerwith urgent/emergent issues, [phone]. Ortho Team A: Latoya Mcdonald, PGY-2 Eran Manzo PGY-2 Ortho Team B: Sherry Leal PGY-3 Alice Choe, PGY-1 Ortho Elective Team: Bryant Ojeda PGY-3 Prateek Fung, PGY-2 Hand Team: Rain Puentes PGY-4 Jorge A Chance DO, PGY-4 * [...] Noted Hydrocodone-acetaminophen 05/10/2021 Preferred Pharmacy: Preferred pharmacy: [id number]; phone number [phone]; fax number [phone] Would patient like medications filled by [facility] dler-js-hdnj program at discharge? Yes Patient manages own [...] Cliff Javier, PharmD, PharmD Clinical Staff Pharmacist [phone] * Davis Bray RN - 05/11/2025 8:52 [...] acute events overnight. Pain well controlled on NUT SIFTER. Denies CP, SOB, fevers. Straight cath for [...] and PRN Dulcolax). - Multimodal pain therapy; NUT SIFTER until POD1 then transition to POPM, pain [...] please page ortho consult pagerwith urgent/emergent issues, [phone]. Ortho Team A: Latoya Mcdonald, PGY-2 Eran Manzo, PGY-2 Ortho Team B: Sherry Leal, PGY-3 Alice Choe, PGY-1 Ortho Elective Team: Bryant Ojeda, PGY-3 Prateek Fung, PGY-2 Hand Team: Rain Puentes, PGY-4 Jorge A Chance DO, PGY-4 * Marcos Huerta, CARLOTTA - 05/10/2025 9:10 AM EST patient prone [...] were not included. Surgical History and Physical [facility] [employer] [place] [address] Name: Doug Gomez : 1990 35 year old CSN: [id number] Attending: Pj Fuentes MD Date of Admission: [...] in visit on 05/02/25 (from the past 00433 hours) CBC WITH DIFFERENTIAL Collection Time: 05/02/25 [...] by Jann Fung MD. Discussed with attending Pj Fuentes MD. Jann Fung MD 05/09/25 5:43 [...] Thursday through Thursday. For questions please page [phone]. Chief Complaint: back pain Consulting Physician: Dr. Pj Fuentes Reason for consult: acute post-operative pain OARRS was reviewed today. History of Present Complaint: The patient is a 35 year old female with a PMH of asthma, smoking, anxiety, HTN, GERD, anemia, failed back syndrome (s/p L5-S1 fusion 08/2024 and 11/28-25 at OSH) now with pseudoarthrosis of L3-S1. [...] and affect; Recent/remote memory as evidenced through vxjg-bd-nmeg interaction and discussion appear grossly intact Labs: [...] Panel No data to display Imaging: MR L-SPINE W/O Addendum: EXAMINATION: MR L-SPINE W/OPRO 03/08/2025 09:22 PM CLINICAL HISTORY: Low [...] FINDINGS SUGGESTIVE OF ARACHNOIDITIS. Narrative: EXAMINATION: MR L-SPINE W/OPRO 03/08/2025 09:22 PM CLINICAL HISTORY: Low [...] pertinent tests were obtained and reviewed fromthe [facility] [employer] electronic medical record system. Pertinent positive and [...] Thursday through Thursday. For questions please page [phone]. Teaching Physician Note: I saw and evaluated [...] with nursing. Patient Identified Goal(s): none stated INVOICE CONTROL CLERK Status: Pt AMB with a rollator. Pt [...] 19/01 assist from Equipment available: rollator OBJECTIVE: Jxzreq-tr-nyz and quvqlk-ug-yrs present throughout evaluation per pt request Appearance: [...] understanding and agreement with the plan. Ebony Altamirano, PT NA = Not Assessed, I = Independent, FL = Modified Independent, Sup = Supervised, Set [...] at Home: Lives with and 2 children; 19/01 assist available Home Living Situation Patient lives [...] Appearance: Semi-supine in bed, jaramillo, hospital gown, NUT SIFTER, IV, Hemovac drain, (B) SCDs, ulhjgy-vb-cjz and opttam-sz-svl present at bedside Alertness: Awake Affect: anxious Cooperation/Behavior: Appropriate dialogue with therapist and cooperative with encouragement, pain-focused Communication: WFL Pain: Pain ratin/10, Location: back Pain Relief Interventions Implemented: Positioning, Rest, and Encouraged patient to use NUT SIFTER Self Care: Assistance Level Dep Max Mod Min CG CS DS FL I Set-Up Comment Feeding x Clear Liquid Diet Grooming/Hygiene x Seated Bathing:UB x Simulated, seated Bathing:LB x Simulated, seated Dressing:UB x Don gown in back while seated EOB Dressing: LB x To manage (B) socks Toileting x +jaramillo; anticipate CGA for safety at toilet level Transfers/Bed Mobility: Assistance Level Dep Max Mod Min CG CS DS FL I Set-Up Comment Toilet Transfers x Anticipate [...] With Patients permission ordered no equipment via [employer] Order. If any questions contact [facility] DME Provider at [phone]. *may benefit from tub bench/shower chair to [...] Guard Assist/Supervision 4 - Non = Modified Alexander/Independent ASSESSMENT: Patient is functionally appropriate for discharge [...] commode transfers with Modified Independent PLAN: Doug Easton Patricia will be seen 1-3 times a week. [...] NA = Not Assessed, I = Independent, FL = Modified Independent, Sup = Supervised, Set [...] Location: PERIOPERATIVE SERVICES; Service: Neurosurgery * Sujey David PT - 05/10/2025 3:31 PM EST Occupational Therapy and Physical Therapy Consult received, chart reviewed. Attempted to see pt for OT/PT evaluation with pt reporting doctorrequested pt stay in bed post-op day 0 with plan to start therapy tomorrow. RN notified and reachedout to MD via [employer] Secure Chat and clarified order via Dr. Fuentes for bedrest today with no head of bed restrictions with plan to start therapy tomorrow. Plan to HOLD evaluation this date and completewhen appropriate. Radha IBRAHIM, OTR/L Sujey David PT [phone]. [phone] documented in this encounter Nursing Notes * Marcos Huerta RN - 05/10/2025 9:01 AM EST Four Caps, two Rods, and four screws from previous surgery at outside hospital from patients spine per Dr Fuentes. documented in this encounter Miscellaneous Notes * OP Note - Pj Fuenets MD - 05/10/2025 6:11 PM EST Name: DOUG GOMEZ MR#: [id number] [facility]#: [id number] Date of Procedure: 05/10/2025 ATTENDING SURGEON: Pj Fuentes MD FORK OPERATOR: Rafa Sheehan MD PREOPERATIVE DIAGNOSES: 1. Status [...] administered. Antibiotics were given prophylactically. The patient was rolled prone on the Karolyn table with posts. [...] We then were able to take a Ben Bolt 1 between the pedicle screws and distract; [...] in layers over vancomycin powder and a 10-St Helenian round Hemovac drain. Simple interrupted #2 Vicryl [...] surgery. She will be maintained with a NUT SIFTER for her pain control. She will receive a standing AP and lateral lumbar spine x-ray when she is able. She will most likely require a 3-4 day hospital stay. MD MARQUISE Mcgraw/Tex/Dict: 05/10/2025 09:29:41 TRANS: 05/10/2025 13:09:03 JOB: [id number] DictJob#: [id number] * Brief Operative Note - Rafa Sheehan MD - 05/10/2025 8:03 AM EST Brief Operative Note MAIN OR 01 Doug Gomez 35 year old female Surgical Contact Serial Number: [id number] Preoperative Diagnosis: Pre-op Diagnosis * Failed back 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] Postoperative Diagnosis: * Failed back 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] Procedures: L5-S1 exploration and revision of hardware Posterolateral fusion L5-S1 Surgeon(s): Surgeon(s): Pj Fuentes MD Staff: Scrub: Marylou Haney RN; Jomar Paige CST Manager Radio Nurse: Marcos Huerta RN Electronics Assembler And Tester: Fred Camp Infectious Disease Technician: Rafa Sheehan MD Anesthesia: General Anesthesiologist: Campos Waller MD ROTARY SOIL STABILIZER OPERATOR: Samantha Hernandez APRN-ROTARY SOIL STABILIZER OPERATOR Tube Rebuilder: Mil Wolfe MD Specimen(s): * No specimens in log * Estimated Blood Loss: greater than 10 cc -- Esitmated Amount: 100cc Lines/Drains: Peripheral IV Access: 05/10/25 0639 18 gauge Right Arm (Active) Site Assessment WNL;Dressing intact 05/10/25633 Infusion Status Port #1 Capped;Patent;Positive blood return 05/10/25633 Peripheral IV Access: 05/10/25 0740 18 gauge Left Hand (Active) Surgical Drain [...] were discussed with the patient and/or legal farm loan representative. The risks, benefits and alternatives were reviewed. Questions regarding blood transfusions were answered. The patient /or the patient???s legal farm loan representative agree with the plan for transfusion of blood and/or blood components. documented in this encounter Plan of Treatment DateTypeDepartmentCare Team (Latest Contact Info)Mskleehptoo16/25/2025 11:00 AM ESTOffice Visit [facility] [address] [place] [address] Pj Fuentes MD [address] [place] [address] documented as of this encounter Procedures Procedure NamePriorityDate/TimeAssociated DiagnosisCommentsXR L-SPINE STANDING AP+LAT 2 RZUGLBBTG35/14/2025 8:10 AM EST XR FLUORO SUPPORT ONLY IN SURGERY (ERIC)STAT107/10/2024 9:51 AM ESTLAMINECTOMY AND FUSION, POSTERIOR, THORACIC LUMBARRoutine linxingod99/12/2025 7:05 AM EST Failed back surgical syndrome Case Notes 03/22 LMOM URINE HCG-IN SZXJPMPsxwnyh91/12/2025 6:26 AM EST RED BLOOD CELL DLVUPTKWKXyersst98/11/2025 11:39 AM EST RED BLOOD CELL UNIT ACNIBRFdpajpv00/11/2025 11:39 AM EST RED BLOOD CELL UNIT JIKYATWxwdujw59/11/2025 11:39 AM EST documented in this encounter [...] Method / VolumeCollection TimeReceived TimeUrineURINE SPECIMEN / Nhtbqxs5805/10/2025 6:26 AM EST Narrative Authorizing ProviderResult TypeResult Garcia [facility] BACK OFFICE LABSFinal Result * RED BLOOD CELL COMPONENT (05/09/2025 11:39 AM EST)ComponentValueRef RangeTest MethodAnalysis TimePerformed AtPathologist SignatureBB Order ItemProduct status info to followZUNI COMPREHENSIVE [facility] PATHOLOGY LABORATORYSpecimen (Source)Anatomical Location / LateralityCollection Method / VolumeCollection TimeReceived Time BLOOD SPECIMEN / Unknown Narrative Authorizing ProviderResult TypeResult StatusPrice [facility] BLOOD BANKFinal ResultPerforming OrganizationAddressCity/State/ZIP CodePhone Number [facility] PATHOLOGY [facility]ORATORY [address] [place], [place] [phone] * RED BLOOD CELL UNIT STATUS (05/09/2025 11:39 AM EST)ComponentValueRef Range Test MethodAnalysis TimePerformed AtPathologist SignatureBlood Product DescriptionRed Blood CellsZUNI COMPREHENSIVE HEALTH CENTER PATHOLOGY LABORATORYBlood Product [id number] [facility] PATHOLOGY LABORATORYStatusCanceSantiam Hospital PATHOLOGY LABORATORYBlood Product Unit [id number] PATHOLOGY LABORATORYBlood Product Unit [id number] PATHOLOGY LABORATORYComment:A PosCrossmatch InterpretationCompatible (E)[facility] PATHOLOGY LABORATORYSpecimen (Source)Anatomical Location / Laterality Collection Method / VolumeCollection TimeReceived Time05/09/2025 11:39 AM EST Narrative Authorizing ProviderResult TypeResult StatusPrice [facility] BLOOD BANKEdited Result - FinalPerforming OrganizationAddressCity/State/ZIP CodePhone Number [facility] PATH[facility] [address] [place] [phone] * RED BLOOD CELL UNIT STATUS (05/09/2025 11:39 AM EST)ComponentValueRef Range Test MethodAnalysis TimePerformed AtPathologist SignatureBlood Product DescriptionRed Blood CellsZUNI COMPREHENSIVE HEALTH CENTER PATHOLOGY LABORATORYBlood Product [id number] [facility] PATHOLOGY LABORATORYStatusCanceSantiam Hospital PATHOLOGY LABORATORYBlood Product Unit [id number] PATHOLOGY LABORATORYBlood Product Unit [id number] PATHOLOGY LABORATORYComment:A PosCrossmatch InterpretationCompatible (E)[facility] PATHOLOGY LABORATORYSpecimen (Source)Anatomical Location / Laterality Collection Method / VolumeCollection TimeReceived Time05/09/2025 11:39 AM EST Narrative Authorizing ProviderResult TypeResult StatusPrice [facility] BLOOD BANKEdited Result - FinalPerforming OrganizationAddressCity/State/ZIP CodePhone Number [facility] [address] [place] [phone] documented in this encounter Visit Diagnoses Diagnosis Failed back surgical syndrome- Primary Other unspecified back disorder Failed back surgical syndrome Other unspecified back disorder Failed back surgical syndrome Other unspecified back disorder documented in this encounter Admitting Diagnoses Diagnosis Failed back surgical syndrome Other unspecified back disorder documented in this encounter Administered Medications Medication OrderMAR ActionAction DateDoseRateSite acetaminophen (TYLENOL) tablet 1,000 mg, Oral, EVERY 6 HOURS, First dose on Thu05/10/25 at 0700, Until Discontinued, Pre-op Given05/12/2025 10:19 AM EST1,000 akNxguu7105/11/2025 2:55 AM EST1,000 mgGiven 05/10/2025 8:41 PM EST1,000 mg acetaminophen (TYLENOL) tablet 1,000 mg, Oral, EVERY 8 HOURS, First dose on Thu05/10/25 at 0700, Until Discontinued Given05/11/2025 9:27 PM EST1,000 mtViqyy0805/11/2025 8:50 AM EST1,000 mg bisacodyl (DULCOLAX) 10 MG suppository 10 mg, Rectal, DAILY PRN, Starting on Thu05/10/25 at 0620, Until Thu05/12/25 at 1721, Constipation, if NPO or no BM from Milk of Magnesia within 6 hours budesonide-formoterol (SYMBICORT) 80-4.5 MCG/ACT inhaler 2 Puff, Inhalation, 2 TIMES DAILY RT, First dose on Thu05/10/25 at 1200, Until Discontinued, Post-op Given05/12/2025 9:28 AM EST2 BchnzXwxuf38/13/2025 8:04 PM EST2 PuffsGiven 05/11/2025 8:38 AM EST2 Puffs BUPivacaine (PF) (MARCAINE) 30 mL, EPINEPHrine (ADRENALIN) 1 mL, lidocaine- EPINEPHrine (XYLOCAINE) 1 %-1:896633 20 mL, dose administered = 70 mL given in sodium chloride 0.9 % 551 mL mixture PRN, Starting on Thu05/10/25 at 0803, Until Thu05/10/25 at 0951 Given05/10/2025 8:03 AM EST70 mL givenIncision BUPivacaine (PF) (MARCAINE) 30 mL, EPINEPHrine (ADRENALIN) 1 mL, lidocaine- EPINEPHrine (XYLOCAINE) 1 %-1:408885 30 mL, gentamicin 40 mg, dose administered = 481 mL given in sodium chloride 0.9 % 92 mL irrigation PRN, Starting on Thu05/10/25 at 0836, Until Thu05/10/25 at 0951 05/10/2025 8:36 AM TCV793 mL givenIncision celecoxib (CeleBREX) capsule 200 mg, Oral, 2 TIMES DAILY, First dose on Thu05/10/25 at 0700, Until Discontinued, Pre-op Given05/12/2025 10:19 AM ZFR877 bmZumaq5805/11/2025 9:29 PM SHS024 mgGiven 05/11/2025 8:50 AM GAZ680 mg docusate sodium (COLACE) capsule 100 mg, Oral, 2 TIMES DAILY, First dose on Thu05/10/25 at 0900, Until Discontinued Given05/10/2025 8:40 PM TJL945 mg gentamicin 40 mg, dose administered = 1 Each in sodium chloride 500 mL irrigation PRN, Starting on Thu05/10/25 at 0806, Until Thu05/10/25 at 0905/10/2025 8:06 AM EST1 EachIncision gentamicin/ NACL pour 4 mL, gelatin adsorbable (SURGIFOAM) 1 g, thrombin 5,000 units 4 mL, dose administered = 1 Each topical mixture PRN, Starting on Thu05/10/25 at 0806, Until Thu05/10/25 at 0951 05/10/2025 8:06 AM EST1 EachIncision hydrOXYzine (ATARAX) tablet 25 mg, Oral, EVERY [...] Until Discontinued, Post-op Given05/11/2025 9:29 PM EST10 otJqqgc2205/10/2025 8:42 PM EST10 mg naloxone (NARCAN) 0.4 MG/ML injection 0.4 mg, Intravenous, PRN, Starting on Thu05/10/25 at 0952, Until Thu05/12/25 at 1721, RespiratoryRate Less Than 8 for adults and less than 12 for Peds or for suspected overdose nicotine (NICODERM CQ) 14 mg/24 hr patch 14 mg, Transdermal, DAILY, First dose (after last modification) on Thu05/11/25 at 0100, Until Discontinued Patch Lwscavb4205/12/2025 10:19 AM EST14 mgPatch Ryuiumy6405/11/2025 1:15 AM EST14 mg ondansetron (ZOFRAN) 4 MG/2ML injection 4 mg, Intravenous, EVERY 6 HOURS PRN, Starting on Thu05/10/25 at 0621, Until Thu05/12/25 at 1721,Nausea, Vomiting Given05/11/2025 9:29 PM EST4 yrRuwnj3905/11/2025 2:00 PM EST4 qoErdjj4305/11/2025 12:44 AM EST4 mg ondansetron (ZOFRAN-ODT) disintegrating [...] at 1721, Severe Pain (pain score 7,8,9,10) scopolamine (TRANSDERM-SCOP) 1 MG/3DAYS patch 1 mg, Transdermal, EVERY 72 HOURS, First dose on Thu05/10/25 at 0700, Until Discontinued, Pre-op Patch Kkihjqd1805/10/2025 6:30 AM EST1 mg sodium chloride 0.9 % iv infusion Intravenous, at 25 mL/hr, CONTINUOUS, Starting on Thu05/10/25 at 1030, Until Thu05/12/25 at 1721 IV New Bag05/11/2025 8:51 AM EST25 mL/hr vancomycin (VANCOCIN) 1 g injection PRN, Starting on Thu05/10/25 at 0837, Until Thu05/10/25 at 0951, Intra-op Given05/10/2025 8:37 AM EST1,000 mgIncisiondocumented in this encounter Active and Recently Administered Medications Times are shown in EST.Medication Order acetaminophen (TYLENOL) tablet 1,000 mg, Oral, EVERY 6 HOURS, First dose on Thu05/10/25 at 0700, Until Discontinued, Pre-op * 0630 (Given - Provider: Aleah Garzon RN) * 1344 (Given - Provider: Martha Mckinnon RN) * 2041 (Given - Provider: Neha Lazo RN) * [...] refused) * 2127 (Given - Provider: Felix Hoyt, RN) * 2300 (Hold/Not Given - Provider: [...] (Given - Provider: Cheyenne Sanchez, RT) * 0928 (Given - Provider: Brooklynn Danielle, RT) ceFAZolin Sodium (ANCEF) 2,000 mg in sodium chloride 0.9 % 100 mL (V2B) (COMPLETED) 2,000 mg, Intravenous, EVERY 8 HOURS, 2 doses, First dose (after last reorder) on Thu05/10/25 at 1600, Last dose on Thu05/11/25 at 0000 * 1529 (IV New Bag - Provider: Martha Mckinnon RN) * 0001 (IV New Bag - Provider: Neha Lazo RN) ceFAZolin Sodium (ANCEF) 2,000 mg in sterile [...] * 2128 (Given - Provider: Felix Hoyt, RN) * 1018 (Given - Provider: Amanda Tolentino, CARLOTTA) docusate sodium (COLACE) capsule 100 mg, Oral, 2 TIMES DAILY, First dose on Thu05/10/25 at 0900, Until Discontinued * 899 (Hold/Not Given - Provider: Martha Mckinnon RN - Reason: Off of unit (test/procedure/OR)) * 2039 (Given - Provider: Neha Lazo RN) * 899 (Hold/Not Given - Provider: Davis Bray RN - Reason: Patient refused) * 2128 (Hold/Not Given - Provider: Felix Hoyt RN - Reason: Patient refused) * 899 (Hold/Not Given - Provider: Amanda Tolentino RN - Reason: Patient refused) gabapentin (NEURONTIN) capsule (COMPLETED) 600 mg, Oral, ONCE, 1 dose, On Thu05/10/25 at 0700, Pre-op * 0631 (Given - Provider: Aleah Garzon RN) montelukast (SINGULAIR) tablet 10 mg, Oral, EVERY EVENING, First dose on Thu05/10/25 at 1800, Until Discontinued, Post-op * 2041 (Given - Provider: Neha Lazo RN) * 2128 (Given - Provider: Felix Hoyt, CARLOTTA) nicotine (NICODERM CQ) 14 mg/24 hr patch 14 mg, Transdermal, DAILY, First dose (after last modification) on Thu05/11/25 at 0100, Until Discontinued * 0115 (Patch Applied - Provider: Neha Lazo RN) * 0115 (Patch Removal - Provider: Felix Hoyt, CARLOTTA) * 101 (Patch Applied - Provider: Amanda Tolentino, CARLOTTA) povidone-iodine 10 % swab (COMPLETED) 4 Swab, Nasal, Once, 1 dose, On Thu05/10/25 at 0700, Pre-op * 0633 (Given - Provider: Aleah Garzon, CARLOTTA) scopolamine (TRANSDERM-SCOP) 1 MG/3DAYS patch 1 mg, Transdermal, EVERY 72 HOURS, First dose on Thu05/10/25 at 0700, Until Discontinued, Pre-op * 0630 (Patch Applied - Provider: Aleah Garzon, CARLOTTA) Medication Order/ HYDROmorphone (DILAUDID) 1mg/mL NUT SIFTER (CANCELED) * 1013 (IV New Bag - Provider: Moreno Kamara, CARLOTTA) * 1150 (IVF Infusing Upon Transfer - Provider: Martha Mckinnon RN) * 194 (Shift Change Verification - Provider: Martha Mckinnon RN) * 0726 (Shift Change Verification - Provider: Neha Lazo RN) lactated ringers iv infusion Intravenous, at 75 mL/hr, CONTINUOUS, Starting on Thu05/10/25 at 0700, Until Thu05/12/25 at 1721 * 1017 (IV New Bag - Provider: Moreno Kamara RN) * 0851 (IV New Bag - Provider: Davis Bray, CARLOTTA) * 211 (IV New Bag - Provider: Keisha Sesay, CARLOTTA) * 2320 (IV New Bag - Provider: Felix Hoyt, CARLOTTA) * 1721 (Due: Order Ending - Provider: System Discharge - Comment: [Order ends at this time. Document the following action when infusion is complete: IV Stop]) sodium chloride 0.9 % iv infusion Intravenous, at 25 mL/hr, CONTINUOUS, Starting on Thu05/10/25 at 1030, Until Thu05/12/25 at 1721 * 1030 (Hold/Not Given - Provider: Martha Mckinnon RN - Reason: Not indicated - Comment: MI running, see MAR) * 0851 (IV New Bag - Provider: Davis Bray RN) * 1721 (Due: Order Ending - Provider: System Discharge [...] (ADRENALIN) 1 mL, lidocaine- EPINEPHrine (XYLOCAINE) 1 %-1:326542 20 mL, dose administered = 70 mL given in sodium chloride 0.9 % 551 mL mixture (CANCELED) PRN, Starting on Thu05/10/25 at 0803, Until Thu05/10/25 at 0951 * 0803 (Given - Provider: Pj Fuentes MD) BUPivacaine (PF) (MARCAINE) 30 mL, EPINEPHrine (ADRENALIN) 1 mL, lidocaine- EPINEPHrine (XYLOCAINE) 1 %-1:952736 30 mL, gentamicin 40 mg, dose administered [...] MemberRelationshipSpecialtyStart DateEnd Date Pj Fuentes MD [address] [place] [address] PhysicianOrthopaedic Surgery01/28/25 Heather Lorenz APRN-LICHA [address] [place] [address] DWSGltpwxldfnkjbf85/6/25documented as of this encounter
--- OUTSIDE RECORDS SUMMARY | 2025-05-12 03:45 | XMS_ITS ---
Author Organization [facility] in [place] Address [address] [place] [address] Care Team Providers Care File Conversion Operator Name Role Phone Yari Sacha Primary Care Provider [phone] Reason For Referral Diagnosis 1 Urinary retention (R 33.9) Referral Organization [facility] Referring Provider First Name Sacha Referring Provider Last Name Yari Referring Provider [employer] icine Referred Provider Arnoldo Nair Referred Provider Specialty Urology Referral Priority Routine REASON FOR VISIT Urology referral Encounters Encounter Location Date Provider Diagnosis [facility] [address] [place] [address] 05/12/2025 Sacha Greenberg Urinary retention R33.9 Assessments Encounter Date Diagnosis (ICD Code) Assessment Notes Treatment Notes Treatment Clinical Notes Section Notes 05/12/2025 Urinary retention (ICD-10 - R33. 9) Plan Of Treatment Referrals Referral Date Details 05/12/2025 05/12/2025Arnoldo Progress Notes * Doug GOMEZ LDOB: [birth year] (35 yo F)Acc No.[id number]:05/12/2025 Patient:?GOMEZ Doug Easton :1990???Age:35 Y???Sex:FemalePhone:[phone] Address:[address] [place] [address], [id number] Subjective: * Chief Complaints: * U rology referral * Medical History: * Surgical History: * Hospitalization/Major Diagno stic Procedure: * Medications: Objective: * Vitals: * Physical Examination: ??? Assessment: * Assessment: 1.?Urinary retention - R33.9 (Primary)??? Plan: * Treatment: ? Referral To:Arnoldo Nair??Urology ?Reason: * Procedure Codes: * true * Date:?Generated for Printing/Faxing/eTransmitting on:?05/14/2025 04:00 AM EST Consultation Request Notes Referral Date Referring Provider Referred Provider Not es 05/12/2025 Sacha Greenberg, Arnoldo
[2025-05-14 02:48] VITALS: BP 134/103; PULSE 102; TEMP 36.4; O2SAT 100; BMI 23.4
[2025-05-14 03:02] VITALS: BP 168/84
[2025-05-14 03:16] LABS: Hematocrit 24.3 % (36.0-48.0); Hemoglobin 8.0 g/dL (12.0-16.0); Immature Granulocytes Abs Auto 0.02 10^3/uL (0.00-0.03); Immature Granulocytes Pct Auto 0.3 % (0.0-0.5); Lymphocytes Absolute Auto 1.7 10^3/uL (1.2-3.8); Mean Corpuscular HGB Conc 32.9 g/dL (29.9-35.2); Mean Corpuscular Hemoglobin 23.9 pg (26.7-34.0); Mean Corpuscular Volume 72.5 fL (81.0-99.0); Platelet Count 252 10^3/uL (150-450); Red Blood Count 3.35 10^6/uL (4.20-5.40); White Blood Count 6.8 10^3/uL (4.0-11.0)
[2025-05-14] MEDS: MORPHINE SULFATE 4 MG/ML VIAL IV (03:17)
--- NOTE | 2025-05-14 03:20 | ED_ITS ---
HPI HPI - General Adult General Chief complaint: Abdominal Pain Stated complaint: abd pain/ surgery last weds Time Seen by Provider: 05/14/25 02:37 Mode of arrival: walk-in History of Present Illness HPI narrative: 35-year-old female presented to the emergency department for low midline abdominal pain. She is postop day #4 from back surgery with posterior incision. She has an indwelling Bond catheter. She is complaining of pain in this midline lower abdomen for about the last 5 hours. No trauma or fever and her catheter has been draining well. Related Data Home Medications ?Medication ?Instructions ?Recorded ?Confirmed albuterol sulfate 90 mcg/actuation 2 puff inhalation Q 4H PRN 04/22/23 12/02/24 aerosol inhaler shortness of breath or wheez ing budesonide-formoterol HFA 160 1 puff inhalation Q12H 1 12/02/24 mcg-4.5 mcg/actuation aerosol inhaler (Symbicort) metoprolol succinate 50 mg 50 mg PO DAILY 12/02/2412/21 tablet,extended release 24 hr Previous Rx's ?Medication ?Instructions ?Recorded methocarbamol 750 mg tablet 750 mg PO Q6H PRN back lidia n #20 04/22/23 tabs ondansetron 4 mg disintegrating 4 mg PO Q6H PRN nausea and 07/06/23 tablet vomiting #12 tabs Allergies Allergy/AdvReac Type Severity Reaction Status Date / Time tomato Allergy Severe Rash Verified 05/14/25 02:48 oxycodone (From Percocet) AdvReac Severe Nausea Verified 05/14/25 02:48 hydrocodone (From Vicodin) AdvReac Nausea Verified 05/14/25 02:48 Opioid HPI Opioid Management Most Recent Opioid Data: Last Pain Scale 7 12/06/24, 11:50 Last Pain Intensity 5 08/21/24, 07:54 Last ORT Total Score 3 12/02/24, 17:14 Last ORT Risk Category Low Risk 12/02/24, 17:14 Review of Systems ROS Narrative A ten point review of systems is negative except as noted above. [facility] Medical History (Updated 05/14/25 @ 06:28 by Ankit Butt MD) Liver mass ?R16.0 - Hepatomegaly, not elsewhere classified (ICD-10) Leg fracture ?S82.90XA - Unspecified fracture of unspecified lower leg, initial encounter for closed fracture (ICD-10) H/O reduction of closed fracture ?Z87.81 - Personal history of (healed) traumatic fracture (ICD-10) Anemia ?D64.9 - Anemia, unspecified (ICD-10) PTSD (post-traumatic stress disorder) ?F43.10 - Post-traumatic stress disorder, unspecified (ICD-10) Panic attacks ?F41.0 - Panic disorder [episodic paroxysmal anxiety] (ICD-10) Electronic cigarette use ?Z78.9 - Other specified health status (ICD-10) Dizziness ?R42 - Dizziness and giddiness (ICD-10) Migraine ?G43.909 - Migraine, unspecified, not intractable, without status migrainosus (ICD-10) Kidney stones ?N20.0 - Calculus of kidney (ICD-10) Colitis ?K52.9 - Noninfective gastroenteritis and colitis, unspecified (ICD-10) Anxiety ?F41.9 - Anxiety disorder, unspecified (ICD-10) Bronchitis ?J40 - Bronchitis, not specified as acute or chronic (ICD-10) Asthma ?J45.909 - Unspecified asthma, uncomplicated (ICD-10) Lumbar stenosis ?M48.061 - Spinal stenosis, lumbar region without neurogenic claudication (ICD-10) Low back pain ?M54.50 - Low back pain, unspecified (ICD-10) Surgical History (Updated 12/02/24 @ 10:55 by Mara Mcaky RN) Status post lumbar spine surgery for decompression of spinal cord ?Z98.890 - Other specified postprocedural states (ICD-10) Hx of tubal ligation ?Z98.51 - Tubal ligation status (ICD-10) History of liver biopsy ?Z98.890 - Other specified postprocedural states (ICD-10) History of tonsillectomy and adenoidectomy ?Z90.89 - Acquired absence of other organs (ICD-10) History of section ?Z98.891 - History of uterine scar from previous surgery (ICD-10) History of section ?Z98.891 - History of uterine scar from previous surgery (ICD-10) Family History Other Family history not known due to adoption Social History Within the past year, how often did you have a drink containing alcohol: never Score interpretation: A score less than 3 is consistent with normal alcohol consumption. Smoking status: Heavy tobacco smoker Do you use any of these nicotine containing products: vaping products Non-prescribed substance use: cannabis (any form) Highest level of school completed/degree received: some college, no degree Little interest or pleasure in doing things: not at all Feeling down, depressed, or hopeless: not at all Exam Narrative Exam Narrative: Nurses note and vital signs reviewed General:The patient appears well and in no apparent distress.Patient is resting comfortably on cart. Skin:Warm, dry, no pallor noted.There is no rash noted. Head:Normocephalic, atraumatic Eye: Normal conjunctiva, no drainage Ears, Nose, Mouth, and Throat: oral mucosa is moist. Nares patent. Cardiovascular:Regular Rate and Rhythm Respiratory:Patient is in no distress, no accessory muscle use, lungs are clear to auscultation, no wheezing, rales or rhonchi Back:non-tender GI: Tenderness present in the midline low abdomen Musculoskeletal: Midline incision in her back is healing well with no dehiscence or erythema or drainage Neurological:A&O, normal speech Psychiatric:Cooperative Constitutional Vital Signs, click to edit/add: Last Vital Signs Temp 97.5 F L 05/14/25 02:48 Pulse 84 05/14/25 06:18 Resp 20 05/14/25 06:18 BP 133/79 05/14/25 06:18 Pulse Ox 100 05/14/25 06:18 Course Vital Signs Vital signs: Vital Signs Temperature 97.5 F L 05/14/25 02:48 Pulse Rate 102 H 05/14/25 02:48 Respiratory Rate 20 05/14/25 02:48 Blood Pressure 134/103 H 05/14/25 02:48 Pulse Oximetry 100 05/14/25 02:48 Temperature 97.5 F L 05/14/25 02:48 Pulse Rate 84 05/14/25 06:18 Respiratory Rate 20 05/14/25 06:18 Blood Pressure 133/79 05/14/25 06:18 Pulse Oximetry 100 05/14/25 06:18 Medical Decision Making MDM Narrative Medical decision making narrative: CT scan shows constipation. Incidental finding of small peritoneal cyst near the stomach is found and discussed with patient. I do not suspect that it is clinically relevant at the present time. She was recommended ieiz-fmp-zkquqyy MiraLAX. Treatment diagnosis and follow-up were discussed with the patient. The rest of her workup is negative. Differential Diagnosis Differential Diagnosis: Constipation, colitis, diverticulitis, cystitis Lab Data Lab results reviewed: Yes I reviewed the patient's lab results Labs: Lab Results 05/14/25 Range/Units 03:10 WBC 6.8 (4.0-11.0) 10^3/uL RBC 3.35 L (4.20-5.40) 10^6/uL Hgb 8.0 L (12.0-16.0) g/dL Hct 24.3 L (36.0-48.0) % MCV 72.5 L (81.0-99.0) fL MCH 23.9 L (26.7-34.0) pg MCHC 32.9 (29.9-35.2) g/dL RDW 16.1 H (11.0-15.0) % Plt Count 252 (150-450) 10^3/uL MPV 11.2 (9.5-13.5) fL Neut % (Auto) 63.8 (43.0-75.0) % Lymph % (Auto) 24.3 (20.5-60.0) % Vance % (Auto) 8.8 (1.7-12.0) % Eos % (Auto) 2.2 (0.9-7.0) % Baso % (Auto) 0.6 (0.2-2.0) % Neut # (Auto) 4.4 (1.4-6.5) 10^3/uL Lymph # (Auto) 1.7 (1.2-3.8) 10^3/uL Vance # (Auto) 0.6 (0.3-0.8) 10^3/uL Eos # (Auto) 0.2 (0.0-0.7) 10^3/uL Baso # (Auto) 0.0 (0.0-0.1) 10^3/uL Abs Immat Gran (auto) 0.02 (0.00-0.03) 10^3/uL Imm/Tot Granulo (auto) 0.3 (0.0-0.5) % Sodium 140 (136-145) mmol/L Potassium 3.4 L (3.5-5.1) mmol/L Chloride 105 (98-107) mmol/L Carbon Dioxide 24.0 (21.0-32.0) mmol/L Anion Gap 14.4 BUN 4.0 L (7.0-18.0) mg/dL Creatinine 0.73 (0.55-1.02) mg/dL Est GFR ( Amer) >60 (>=60 mL/min/1.73m^2) Est GFR (Non-Af Amer) >60 (>=60 mL/min/1.73m^2) BUN/Creatinine Ratio 5.5 Glucose 124 H (74-106) mg/dL Calcium 8.8 (8.5-10.1) mg/dL Serum HCG, Qual Negative (NEGATIVE) Imaging Data CT scan - abdomen: Radiologist's impression: Mild constipation, peritoneal cyst anterior and inferior to the antrum of the stomach that measures 1.7 x 2.4 cm Discharge Plan Discharge Chief Complaint: Abdominal Pain Clinical Impression: Constipation Patient Disposition: Home, Self-Care Time of Disposition Decision: 06:28 Condition: Good Mode of Transportation: Private Vehicle Prescriptions / Home Meds: No Action ondansetron 4 mg tablet,disintegrating 4 mg PO Q6H PRN (Reason: nausea and vomiting) Qty: 12 0RF metoprolol succinate 50 mg tablet extended release 24 hr 50 mg PO DAILY albuterol sulfate 90 mcg/actuation HFA aerosol inhaler 2 puff INHALATION Q4H PRN (Reason: shortness of breath or wheezing) budesonide-formoterol [Symbicort] 160-4.5 mcg/actuation HFA aerosol inhaler 1 puff INHALATION Q12H methocarbamol 750 mg tablet 750 mg PO Q6H PRN (Reason: back pain) Qty: 20 0RF Print Language: Portuguese Instructions: Constipation (ED) Additional Instructions: Xbsk-ikv-dlnmcbz MiraLAX for constipation. Follow-up with Dr. Belcher regarding the small cyst seen near the stomach. Referrals: Stiven Greenberg MD [Primary Care Provider, Family Practice] - 1 week
[2025-05-14 03:25] LABS: Anion Gap 14.4; Blood Urea Nitrogen 4.0 mg/dL (7.0-18.0); Calcium 8.8 mg/dL (8.5-10.1); Carbon Dioxide 24.0 mmol/L (21.0-32.0); Chloride 105 mmol/L (98-107); Estimated GFR (African America >60 (>=60 mL/min/1.73m^2); Estimated GFR (Non-African Ame >60 (>=60 mL/min/1.73m^2); Glucose 124 mg/dL (74-106); Potassium 3.4 mmol/L (3.5-5.1); Sodium 140 mmol/L (136-145)
--- OUTSIDE RECORDS SUMMARY | 2025-05-14 04:00 | XMS_ITS | Clinical Summary ---
Author Organization [employer] [facility] Address [id number] [address] [place] [address] Care Team Providers Care Transfer Car Operator Drier Name Role Phone Stiven Greenberg MD Primary Care Provider [phone] Allergies Active AllergyReactionsCriticalityNoted DateCommentsHydrocodone-Acetaminophen 05/10/2021 Medications MedicationSigDispense QuantityRefillsLast FilledStart DateEnd DateStatus ferrous sulfate 325 (65 FE) mg tablet Take 325 mg by mouth 2 (two) times a day with meals.Active budesonide-formoteroL (SYMBICORT) 160-4.5 mcg/actuation inhaler Inhale 2 puffs in the morning and 2 puffs before bedtime.Active albuterol (PROVENTIL HFA;VENTOLIN HFA) 90 mcg/actuation inhaler Inhale 2 puffs every 6 (six) hours as needed for wheezing.Active lidocaine (LIDODERM) 5 % Place 1 patch on the skin daily. Remove & Discard patch within 12 hours or as directed by 30 patch 06/22/2024ctive tiZANidine (ZANAFLEX) 4 mg tablet Take 1 tablet (4 mg total) by mouth every 6 (six) hours as needed for muscle spasms. 30 tablet 06/22/2024ctive Active Problems ProblemNoted DateDiagnosed DateNeurogenic vozepxtyinle96/16/2025 Assessment & Plan (07/14/2024 1:49 PM EST): No evidence of significant peripheral arterial disease. Recommend evaluation and management by neuro spine. She is planned to have procedure. Back pain06/22/2024Muscle biqkxll3906/22/2024Trouble hfsvwjw0106/22/2024 Social History Tobacco UseTypesPacks/DayYears UsedDateSmoking Tobacco: FormerCigarettes Smokeless Tobacco: Never Tobacco Cessation:Counseling Given: Not Answered Alcohol UseStandard Drinks/WeekCommentsNever0 (1 standard drink = 0.6 oz pure alcohol)[facility] UtilitiesAnswerDate RecordedIn the past 12 months has the [employer], [employer], oil, or water [employer] threatened to shut off services in your home?No 06/22/2024HQ-2AnswerDate RecordedTotal Nqctb98107/10/2020RAPARE - Transportation AnswerDate RecordedIn the past 12 months, has lack of transportation kept you from medical appointments or from getting medications?No06/22/2024In the past 12 months, has lack of transportation kept you from meetings, work, or from getting things needed for daily living?No06/22/2024Housing InstabilityAnswerDate RecordedAre you worried or concerned that in the next two months you may not have stable housing that you own, rent or stay in as a part of a household?No 06/22/2024hildcareAnswerDate JywcmsrwIatusomdyLjudadl91/12/2019EmploymentAnswer Date ElomoifwXkpnorswymEwyoxqw10/12/2019Hunger ScreeningAnswerDate Recorded Within the past 12 months we worried whether our food would run out before we got money to buy more.Never True06/22/2024Within the past 12 months the food we bought just didn't last and we didn't have money to get more.Never True 4Purpose - LifeAnswerDate RecordedPurpose and direction in lifeUnknown 1CommentsNoSex and Gender InformationValueDate RecordedSex Assigned at BirthNot on fileLegal LsfOohomg55/06/2015 11:51 AM EDTGender IdentityNot on fileSexual OrientationNot on file Last Filed Vital Signs Vital SignReadingTime TakenCommentsBlood Obpkonbp187/7806/27/2024 2:53 PM EST Ztfuh609006/27/2024 2:53 PM WQDZfopycpdooo37.7 ??C (98.1 ??F)06/22/2024 11:43 AM ESTRespiratory Tjnt948708/23/2023 11:43 AM ESTOxygen Hhwqjcneht46%06/22/2024 11:43 AM ESTInhaled Oxygen Concentration--Asqvxl05.9 kg (121 lb)06/27/2024 2:53 PM EST Ggufyk594.1 cm (5' 5 )06/22/2024 4:13 AM ESTBody Mass Index20.14108/23/2023 4:13 AM EST Plan of Treatment Health MaintenanceDue DateLast DoneCommentsDepression Bebnwdgcr28/26/2003Pap Smear01/22/2012Influenza Xhnrhxd13/01/2025Adult BMI Djmzsrilj00/30/2025 06/27/2024Tobacco Stijsjrzz794DTaP,Tdap and Td Vaccines (8 - Td or Tdap)6012/19/2015, 01/19/2014, 10/18/2012, Additional history exists Medical Devices Not on file Insurance Advance Directives * Full Code (Latest Code Status on File) Date ActivatedDate GivsxiahsmoGhjjwmlu97/25/2024 3:03 AM06/22/2024 3:37 PM Care Teams Team MemberRelationshipSpecialtyStart DateEnd Date Stiven Greenberg MD PCP - GeneralFamily Ufdfaoic10/15/24
--- OUTSIDE RECORDS SUMMARY | 2025-05-14 04:00 | XMS_ITS | Clinical Summary ---
Author Organization [facility] Address [address], [address] [place] [address] Care Team Providers Care Headline Writer Name Role Phone Stiven Greenberg MD Primary Care Provider [phone] Allergies Active AllergyReactionsCriticalityNoted BzbtOxlojswwJrqgzftdyhl48/07/2025 Oxycodone-Opzpewiphkywq11/07/2025 Medications MedicationSigDispense QuantityRefillsLast FilledStart DateEnd DateStatus metoprolol succinate (TOPROL XL) 50 MG extended release tablet Take 1 tablet by mouth dailyActive methocarbamol (ROBAXIN) 750 MG tablet Take 1 tablet by mouth 4 times dailyActive Active Problems ProblemNoted DateDiagnosed DateComplaints of weakness of lower extremity 12/03/2024 Social History Tobacco UseTypesPacks/DayYears UsedDateSmoking Tobacco: Never [facility]essed[facility] UtilitiesAnswerDate RecordedIn the past 12 months has the [employer], gas, oil, or water [employer] threatened to shut off services in your home?No12/03/2024Hunger Vital SignAnswerDate RecordedWithin the past 12 months, you worried that your food would run out before you got the money to buymore.Never true12/03/2024 Within the past 12 months, the food you bought just didn't last and you didn't have money to get more.Never true12/03/2024PRAPARE - TransportationAnswerDate RecordedIn the past 12 months, has lack of transportation kept you from medical appointments or from getting medications?No12/03/2024In the past 12 months, has lack of transportation kept you from meetings, work, or from getting things needed for daily living?No12/03/2024Housing Stability Vital SignAnswerDate RecordedIn the last 12 months, was there a time when you were not able to pay the mortgage or rent on time?No12/03/2024In the past 12 months, how many times have you moved where you were living?t any time in the past 12 months, were you homeless or living in a usp (including now)?No12/03/2024 Food InsecurityAnswerDate RecordedWithin the past 12 months, you worried that your food would run out before you got the money to buymore.Within the past 12 months, the food you bought just didn't last and you didn't have money to get more.Interpersonal Safety Domain Source: IP Abuse ScreeningAnswerDate RecordedPhysical lknebFefljw03/07/2025Verbal abuseDenies 12/03/2024Emotional tkqhqZjnalp99/07/2025Financial dxovwGybdlk08/07/2025Sexual ftzxrRcowqw12/07/2025CommentsUnknownSex and Gender InformationValueDate RecordedSex Assigned at BirthNot on fileLegal OnvPhbmel85/10/2013 10:08 AM EST Gender IdentityNot on fileSexual OrientationNot on file Last Filed Vital Signs Vital SignReadingTime TakenCommentsBlood Gilcugwo813/7912/04/2024 4:10 AM EDT Fywmc032712/04/2024 4:10 AM BHSWlyeabhotyy98.6 ??C (97.9 ??F)12/04/2024 4:10 AM EDTRespiratory Skxv188612/04/2024 4:10 AM EDTOxygen Zpulqvxeir673%12/04/2024 4:10 AM EDTInhaled Oxygen Concentration--Tkikaq59.3 kg (143 lb 15.4 oz)12/03/2024 12:45 AM ADDVymseq334.4 cm (5')12/03/2024 12:45 AM EDTBody Mass Index28.12 12/03/2024 12:45 AM EDT Plan of Treatment Health MaintenanceDue DateLast DoneCommentsDepression Tcxfhe2601/21/2003Varicella vaccine (1 of 2 - 13+ 2-dose series)01/22/2004HIV pwtmhb7001/21/2006Hepatitis C rhugvh1401/21/2009Pap smear01/22/2012Cervical cancer oaaeym3401/21/2021HPV (without or with Pap)2021Flu vaccine (#1)01/27/2025OVID-19 Vaccine ( season)2025DTaP/Tdap/Td vaccine (8 - Td or Tdap)6012/19/2015, 01/19/2014, 10/18/2012, Additional history existsHib eaqggakRwqlkbuxk41/21/1994, 02/27/1993Polio xlxpqwjLuoojfnce37/20/1996, 11/19/1994, 09/16/1993, Additional history existsHepatitis B jagttveKucqajrpz41/15/1997, 02/16/1996, 11/19/1994HPV vaccine (No Doses Required)CompletedHepatitis A vaccineAged OutNo longer eligible based on patient's age to complete this topicMeningococcal (ACWY) vaccineAged OutNo longer eligible based on patient's age to complete this topic Meningococcal B vaccineAged OutNo longer eligible based on patient's age to complete this topicPneumococcal 0-49 years VaccineAged OutNo longer eligible based on patient's age to complete this topic Insurance Advance Directives * Full Code (Latest Code Status on File) Date ActivatedDate InactivatedComments12/03/2024 3:03 AM12/04/2024 12:35 PM Care Teams Team MemberRelationshipSpecialtyStart DateEnd Date Stiven Greenberg MD [address] [place] [address] PCP - GeneralFamily Medicine12/02/24
--- OUTSIDE RECORDS SUMMARY | 2025-05-14 04:00 | XMS_ITS | CCD ---
Author Organization [facility] Care Team Providers Care Tenoner Operator Name Role Phone RENEE ., DR TONEY Attending Unavailable HOY ., DR TONEY Admitting Unavailable HOY ., DR TONEY Primary Care Unavailable HOY ., DR TONEY Consulting Unavailable HOY ., DR TONEY Admitting Unavailable HOY ., DR TONEY Primary Care Unavailable HOY ., DR TONEY Consulting Unavailable HOY ., DR TONEY Attending Unavailable Stiven Duran MD Primary Care Provider [phone] RENEE STIVEN M Primary Care Unavailable YUNIOR HARMON Attending Unavailable DELFINO HARMON Admitting Unavailable JELANI BARDALES Consulting Unavailable HOY, STIVEN M Primary Care Unavailable ANDREA TSE Attending Unavailable HOY, STIVEN M Primary Care Unavailable TK GLEZ Attending Unavailable LEONIDAS JUDD Referring Unavailable HOY, STIVEN M Primary Care Unavailable HOY, STIVEN M Primary Care Unavailable KAYLA HARMON Attending Unavailable HOY, STIVEN M Primary Care Unavailable DELFINO HARMON Attending Unavailable SOFIA, SELVON Referring Unavailable HOY, STIVEN M Primary Care Unavailable NANNETTE DELEON Referring Unavailable HOY, STIVEN M Primary Care Unavailable DELFINO HARMON Attending Unavailable DELFINO HARMON Referring Unavailable HOY, STIVEN M Primary Care Unavailable HOY, STIVEN M Referring Unavailable SOFIA, SELVON Referring Unavailable HOY, STIVEN M Primary Care Unavailable Stiven Duran MD Primary Care Provider [phone] RENEA GONZALEZ Attending Unavailable HOY, STIVEN M Referring Unavailable HOY, STIVEN M Primary Care Unavailable JOSE KIM Attending Unavailable HOY, STIVEN M Referring Unavailable HOY, STIVEN M Primary Care Unavailable HOY, STIVEN M Primary Care Unavailable ST. ANNA, SELVON F Admitting Unavailable ST. ANNA, SELVON F Attending Unavailable ROMI ABDI Referring Unavailable STIVEN DURAN Primary Care Unavailable Unavailable Primary Care Provider UnavailEloisa Romo MD Unavailable [phone] PROVIDER, UNKNOWN Admitting Unavailable ELOISA BEASLEY Attending Unavailable PROVIDER, UNKNOWN Attending Unavailable ELOISA BEASLEY Referring Unavailable PROVIDER, UNKNOWN Admitting Unavailable ELOISA BEASLEY Referring Unavailable PROVIDER, UNKNOWN Admitting Unavailable PROVIDER, UNKNOWN Attending Unavailable ELOISA BEASLEY Referring Unavailable PROVIDER, UNKNOWN Admitting Unavailable PROVIDER, UNKNOWN Attending Unavailable ELOISA BEASLEY Referring Unavailable PROVIDER, UNKNOWN Attending Unavailable PROVIDER, UNKNOWN Admitting Unavailable ELOISA BEASLEY Admitting Unavailable REQUEST, IP PHYSICAL THERAPY SERVICE Consulting Unavailable ELOISA BEASLEY Attending Unavailable REQUEST, IP OCCUPATIONAL THERAPY SERVICE Consult ing Unavailable PROVIDER, UNKNOWN Admitting Unavailable ELOISA BEASLEY Attending Unavailable ELOISA BEASLEY Admitting Unavailable PROVIDER, UNKNOWN Attending Unavailable ELOISA BEASLEY Referring Unavailable PROVIDER, UNKNOWN Admitting Unavailable HEATHER LORENZ Attending Unavailable PROVIDER, UNKNOWN Admitting Unavailable STIVEN DURAN. Referring Unavailable ELOISA BEASLEY Attending Unavailable Allergies Allergy ClassificationReported Allergen(s)Allergy TypeDate of OnsetReaction(s) Facility (1 source)Acetaminophen / HYDROcodoneDrug Gavjgwr78-72-7425Jyq [facility] (20 sources)Acetaminophen / HYDROcodone; Translations: [HYDROCODONE-ACETAMINOPHEN]Drug Prysiej95-59-1985[facility] ([facility] source)Acetaminophen / oxyCODONEDrug Krfccqh93-92-9460Tvt [facility] (1 source)HYDROcodoneDrug Zpdhsid62-90-7488Jlo [facility] Medications Current Medications MedicationDrug Class(es)DatesSig (Normalized)Sig (Original)Albuterol (7 sources)beta2-Adrenergic AgonistALBUTEROL INHALATION Inhale by mouth. Active take 2 puff(s) by inhalation every six hours as needed for wheezingalbuterol (PROVENTIL HFA;VENTOLIN HFA) 90 mcg/actuation inhaler Inhale 2 puffs every 6 (six) hours as needed for wheezing. Sbkxpx44 actuat budesonide 0.08 mg/actuat / formoterol fumarate 0.0045 mg/actuat metered dose inhaler (7 sources)Corticosteroid, beta2-Adrenergic Agonisttake 2 puff(s) by mouth twice dailybudesonide-formoterol (Symbicort) 80-4.5 MCG/ACT inhaler Inhale 2 Puffs by mouth 2 times daily. Activetake 2 puff(s) by inhalation in the morning budesonide-formoteroL (SYMBICORT) 160-4.5 mcg/actuation inhaler Inhale 2 puffs in the morning and 2puffs before bedtime. Activetake 2 puff(s) by inhalation in the morningbudesonide-formoteroL (SYMBICORT) 160-4.5 mcg/actuation inhaler Inhale 2 puffs in the morning and 2puffs before bedtime.100 ml calcium gluconate 20 mg/ml injection (1 source)Start: 51-04-4716necj 4-4.3 mg intravenously every hour as needed2,000 mg, intravenous, at 50 mL/hr, Administer over 2 Hours, As needed, ionized calcium 4 to 4.3 mg/dL, Starting on Thu06/22/24 at 0301, IV Administration of calcium via a central or deep vein preferred. Avoid administration in small hand veins VESICANT (RED)calcium gluconate 3,000 mg in sodium chloride 0.9 % 100 mL IVPB (1 source)Start: 76-16-6353sfrd 3.5-3.9 mg intravenously every hour as needed 3,000 mg, intravenous, at 43.3 mL/hr, Administer over 3 Hours, As needed, ionized calcium 3.5 to 3.9 mg/dL, Starting on Thu06/22/24 at 0301, IV Administration of calcium via a central or deep vein preferred. Avoid administration in small hand veins VESICANT (RED)calcium gluconate 4,000 mg in sodium chloride 0.9 % 250 mL IVPB (1 source)Start: 16-62-1910busl 3.4 mg intravenously every hour as needed4,000 mg, intravenous, at 72.5 mL/hr, Administer over 4 Hours, As needed, ionized calcium 3.4 mg/dLor less, Starting on Thu06/22/24 at 0301, IV administration of calcium via a central or deep vein is preferred. Avoid administration in small hand veins. VESICANT (RED)cephalexin 500 mg oral capsule (1 source)Cephalosporin Antibacterial End: 87-39-8576wezk 1 capsule by mouth twice dailyCEPHalexin (KEFLEX) 500 mg capsule Take 500 mg by mouth 2 (two) times a day. 06/22/2024 Discontinued (Stop Taking at Discharge)cyclobenzaprine hydrochloride 10 mg oral tablet (13 sources)Muscle RelaxantStart: 00-75-0847jfrx 1 tablet by mouth three times dailycyclobenzaprine (FLEXERIL) 10 MG tablet TAKE 1 TABLET BY MOUTH THREE TIMES A DAY FOR 30 DAYS 12/31/2024 Active1 ml dexamethasone phosphate 10 mg/ml prefilled syringe (1 source)CorticosteroidStart: 81-17-817366 mg, IntraVENous, EVERY 8 HOURS, First dose on Thu12/03/24 at 0700diazePAM 5 mg oral tablet (4 sources)BenzodiazepineStart: 02-22-2025 End: 99-01-3954clslbXNG (Valium) 5 MG tablet Indications: Failed back surgical syndrome , Claustrophobia , AnxietyTake 1 Tablet by mouth every hour as needed for Anxiety for up to 2 doses. Take one tablet one hourprior to MRI, take one additional tablet immediately before MRI if needed. Do not drive while taking. 2 Tablet 02/22/2025 03/24/2025 Active0.4 ml enoxaparin sodium 100 mg/ml prefilled syringe (1 source)Low Molecular Weight HeparinStart: 96-21-4466mgmsrq 40 mg by subcutaneous injection once daily40 mg, subcutaneous, Daily, First dose on Thu06/22/24 at 0305, Look-alike/sound-alike medication -verify indication for use. ferrous sulfate 325 mg oral tablet (4 sources)take 1 tablet by mouth twice daily at mealtimeferrous sulfate 325 (65 FE) mg tablet Take 325 mg by mouth 2 (two) times a day with meals. Active gabapentin 300 mg oral capsule (2 sources)Anti-epileptic AgentStart: 06-22-2024 End: 17-09-1675ingn 1 capsule by mouth three times dailygabapentin (NEURONTIN) 300 mg capsule Indications: Back pain , Atrophy of muscle of right thigh Take 1 capsule (300 mg total) by mouth 3 (three) times a day for 3 days. 9 capsule 06/22/2024 06/25/2024 Activeglucagon (rdna) 1 mg injection (1 source)Antihypoglycemic AgentStart: mg, intramuscular, As needed, low blood sugar, [...] than 70 mg/dL after initial treatment, repeat treatment.150 ml glucose 50 mg/ml injection (3 sources)Start: g, oral, As needed, low blood sugar, blood glucose less than 70 mg/dL, Starting on Thu06/22/24 at 0301, If patient conscious and taking PO. If blood glucose is not greater than 70 mg/dL after initial treatment, repeat treatment.Start: mL, intravenous, As needed, low blood sugar, blood glucose less than 70 mg/dL and unconscious orNPO with IV access, Starting on Thu06/22/24 at 0301, Push over 1-3 minutes STAT. If conscious and not NPO, immediately follow with meal tray or high protein (7 grams) snack if tray not available. IfNPO, initiate 5% dextrose in water at 100 mL/hr and contact prescriber for additional orders. If blood glucose is not greater than 70 mg/dL after initial treatment, repeat treatment. VESICANT (RED) Warning: HYPERTONIC solution.Start: 06-22-2024 End: 15-43-0960xuji 70 mg intravenously every kamn915 mL/hr, intravenous, Continuous PRN, blood glucose less than 70 mg/dL, Starting on Thu06/22/24 at 0301, For 1 day, Use immediately following dextrose 50% or glucagon treatment for patients who are unconscious or NPO. Contact prescriber for additional orders. If blood glucose is not greater than70 mg/dL after initial treatment, repeat treatment.1 ml ketorolac tromethamine 30 mg/ml injection (2 sources)Nonsteroidal Anti-inflammatory Drug, Cyclooxygenase InhibitorStart: 06-22-2024 End: 92-18-5630sqan 15 mg intravenously every six hours as needed for pain15 mg, intravenous, Every 6 hours PRN, moderate pain - pain scale 4-6, Starting on Thu06/22/24 at 0911, For 3 days, Look-alike/sound-alike medication - verify indication for use. Duration of therapyis not to exceed 5 days. Maximum recommended dose + 120mg/24 hours.Start: 06-22-2024 End: 35-41-348658 mg, intravenous, Once, On Thu06/22/24 at 0125, For 1 dose, Look-alike/sound-alike medication - verify indication for use. Duration of therapy is not to exceed 5 days. Maximum recommended dose + 120mg/24 hours. lidocaine 0.05 mg/mg medicated patch (17 sources)Antiarrhythmic, Amide Local AnestheticStart: 79-31-7089ajkbg 1 dose transdermal route every twenty-four hourslidocaine (LIDODERM) 5 % patch Place 1 Patch on the skin every 24 hours. 06/22/2024 ActiveStart: 26-00-7556rujuz 1 dose transdermal route once daily, then apply 1 dose transdermal route every twelve hourslidocaine (LIDODERM) 5 % Place 1 patch on the skin daily. Remove & Discard patch within 12 hours or as directed by 30 patch 06/22/2024 Lqxoip56 ml magnesium sulfate 40 mg/ml injection (2 sources)Start: ,000 mg, intravenous, at 25 mL/hr, Administer over 120 Minutes, As needed, Magnesium level 1.7 to 1.9 mg/dL, or Ionized Magnesium level 0.45 to 0.5 mmol/L., Starting on Thu06/22/24 at 0301, Recheckmagnesium level 4 hours after infusion complete. With each magnesium result continue the replacement orders as needed.Start: ,000 mg, intravenous, at 25 mL/hr, Administer over 240 Minutes, As needed, Magnesium level 1.6 mg/dL or less, or Ionized Magnesium level 0.44 mmol/L or less, Starting on Thu06/22/24 at 0301, Recheck magnesium level 4 hours after infusion complete. With each magnesium result continue the replacement orders as needed.methocarbamol 500 mg oral tablet (3 sources)Muscle RelaxantStart: 91-62-6173Nlgsa: 06-18-2024 End: 53-74-0572qstk 1 tablet by mouth in the morning, then take 1 tablet by mouth at bedtimemethocarbamoL (ROBAXIN) 500 mg tablet Take 1 tablet (500 mg total) by mouth in the morning and 1 tablet (500 mg total) before bedtime. 20 tablet 06/18/2024 06/22/2024 Discontinued (Stop Taking at Discharge)take 1 tablet by mouth four times dailymethocarbamol (ROBAXIN) 750 MG tablet Take 1 tablet by mouth 4 times daily Suspendedmontelukast 10 mg oral tablet (4 sources)Leukotriene Receptor Antagonist End: 89-28-6323ipgn 1 tablet by mouth once dailymontelukast (SINGULAIR) 10 MG tablet TAKE 1 TABLET BY MOUTH EVERY DAY FOR 30 DAYS; Duration: 30 Active1 ml morphine sulfate 2 mg/ml injection (2 sources)Opioid AgonistStart: 77-65-6323dmib 2 mg intravenously every four hours as needed for pain2 mg, intravenous, Every 4 hours PRN, severe pain - pain scale 7-10, Starting on Thu06/22/24 at 0911, Look-alike/sound-alike medication - verify indication for use.Start: 06-22-2024 End: 44 mg, intravenous, Once, On Thu06/22/24 at 0125, For 1 dose, Look-alike/sound-alike medication - verify indication for use.ondansetron 4 mg disintegrating oral tablet (1 source)Serotonin-3 Receptor AntagonistStart: 04-12-2024 End: 57-65-8131qdks 1 tablet by mouth every eight hours as needed for nausea ondansetron ODT (ZOFRAN ODT) 4 mg disintegrating tablet Dissolve 1 tablet (4 mg total) on tongue every 8 (eight) hours as needed for nausea for up to 10 doses. 10 tablet 04/12/2024 06/22/2024 Discontinued (Stop Taking at Discharge) ondansetron (ZOFRAN-ODT) disintegrating tablet 4 mg (1 source)Start: 11-17-2020fzjglcoojkx (ZOFRAN-ODT) disintegrating tablet 4 mg pantoprazole 20 mg delayed release oral tablet (1 source)Proton Pump InhibitorStart: 04-12-2024 End: 31-09-8161rbqg 1 tablet by mouth in the morningpantoprazole (PROTONIX) 20 mg EC tablet Take 1 tablet (20 mg total) by mouth in the morning. 20 tablet 04/12/2024 06/22/2024 Discontinued (Stop Taking at Discharge)Potassium Chloride (1 source)Start: 19-76-6133zdgsnwpgt chloride (K-TAB,KLOR-CON) CR tablet 30-50 mEqsodium phosphate 20 mmol in sodium chloride 0.9 % 250 mL IVPB (1 source)Start: 31-85-0443nxojlv phosphate 20 mmol in sodium chloride 0.9 % 250 mL IVPBtiZANidine 4 mg oral tablet (4 sources)Central alpha-2 Adrenergic AgonistStart: 98-29-9465dcdr 1 tablet by mouth every six hours as neededtiZANidine (ZANAFLEX) 4 mg tablet Take 1 tablet (4 mg total) by mouth every 6 (six) hours as neededfor muscle spasms. 30 tablet 06/22/2024 Active Completed/Discontinued Medications MedicationDrug Class(es)DatesSig (Normalized)Sig (Original)acetaminophen 325 mg oral tablet (2 sources)Start: 38-12-7572548 mg, Oral, EVERY 6 HOURS, First dose on 12/03/24 at 0400, Until Discontinued, Maximum dose of acetaminophen is 4000 mg from all sources in 24 hours., Post-opStart: 29-26-9506adby 1 tablet by mouth every six hours as needed for jgbnsyqg772 mg, oral, Every 6 hours PRN, headaches, temperature greater than 38.3 C, Starting on Thu06/22/24 at 0301 gadoteridol (PROHANCE) injection 10 mL (1 source)Start: 12-03-2024 End: 78-43-5109btsi 1 dose intravenously once10 mL, IntraVENous, IMG ONCE PRN, 1 dose, Starting on 12/03/24 at 0528, Until 12/03/24 at 0528,Other24 hr metoprolol succinate 50 mg extended release oral tablet (14 sources)beta-Adrenergic BlockerStart: 01-14-2025 End: 68-24-3020nhurxrvbwp (TOPROL-XL) 50 mg XL tablet 01/14/2025 05/02/2025 DiscontinuedStart: 04-81-1047pymrnzgaBILA 3 mg/ml oral solution (3 sources)CorticosteroidStart: 06-22-2024 End: 23-60-3273xsfw 13.3 mL by mouth in the morningprednisoLONE (ORAPRED) 15 mg/5 mL (3 mg/mL) solution Take 13.3 mL (40 mg total) by mouth in the morning for 5 days. 66.5 mL 06/22/2024 06/27/2024 Expired5 ml sodium chloride 9 mg/ml injection (6 sources)Start: -40 mL, IntraVENous, EVERY 12 HOURS SCHEDULED (2 times per day), First dose on 12/03/24 at 0900,Until Discontinued, For Line Patency: Peripheral IV = 5 mL; Midline or Central Line = 10 mL/lumen. If following IV push medication, administer flush at same rate as the IV push. Flush volume is determined by type of infusion therapy being given. For non- viscous solutions use: Peripheral IV = 5 mL Midline or Central Line = 10 mL/lumen For viscous solutions (i.e. blood components, parenteral nutrition, contrast media, or after obtaining blood sample) use: Peripheral IV = 10 mL Midline or Central Line = 20 mL/lumen, Post-opStart: 17-93-0194LizeqAHQagt, at 5-250 mL/hr, PRN, if patient receiving piggyback infusions and maintenance fluids are not ordered, Starting on 12/03/24 at 0303, For piggyback infusion, administer at same rate as piggyback for a total of 25 mL. Enter 25 mL into dose field and piggyback rate into rate field of order. If piggyback is infusing at a rate less than 100 mL/hr, enter 25 mL into dose field and 100 mL/hr into rate field of order., Post-opStart: -40 mL, IntraVENous, PRN, Starting on 12/03/24 at 0303, Until Discontinued, Line Care, After every IV line use, For Line Patency: Peripheral IV = 5 mL; Midline or Central Line = 10 mL/lumen. If following IV push medication, administer flush at same rate as the IV push. Flush volume is determinedby type of infusion therapy being given. For non- viscous solutions use: Peripheral IV = 5 mL Midline or Central Line = 10 mL/lumen For viscous solutions (i.e. blood components, parenteral nutrition, c ontrast media, or after obtaining blood sample) use: Peripheral IV = 10 mL Midline or Central Line = 20 mL/lumen, Post-opStart: mL, intravenous, Every 12 hours scheduled, First dose on Thu06/22/24 at 0900Start: mL, intravenous, As needed, line care, before and after each intermittent use, Starting on Thu06/22/24 at 0301Start: 06-22-2024 End: 36-66-1518ipwv 20 mL intravenously every hour as nnynko85 mL/hr, intravenous, Continuous PRN, to maintain patency of lines, Starting on Thu06/22/24 at 0301, For 1 day Problems Active Problems Problem ClassificationProblemDateDocumented DateEpisodic/ChronicAcute cerebrovascular disease (1 source)Acute cerebrovascular diseaseOnset: 88-22-7030Jdpnvrl disorders (5 sources)Posttraumatic stress disorder; Translations: [Post-traumatic stress disorder, unspecified]Onset: 119320-08-1091JtjzqnfFgdlgv (5 sources)Asthma; Translations: [Unspecified asthma, uncomplicated]Onset: 798700-77-3080HcgeyhcLjcbcajivv disorders (5 sources)Gastro-esophageal reflux disease with esophagitis; Translations: [Gastroesophageal reflux disease with esophagitis]Onset: 311831-90-0583 ChronicEssential hypertension (5 sources)Hypertensive disorder; Translations: [Essential (primary) hypertension]Onset: 542500-81-7823QtndukqOgiqzjoi; including migraine (5 sources)Migraine; Translations: [Migraine, unspecified, not intractable, without status migrainosus]Onset: 366465-11-9002BmuyvjiSaywl connective tissue disease (4 sources)Atrophy of muscle of right thigh; Translations: [Muscle wasting and atrophy, not elsewhere classified, right thigh]57-04-8860WxbaqyusJzadh connective tissue disease (4 sources)Muscle atrophy; Translations: [Muscle wasting and atrophy, not elsewhere classified, unspecified site]Onset: 454882-60-3819PjjsrtddYnwdp connective tissue disease (2 sources)Neurogenic claudication; Translations: [Other symptoms and signs involving the nervous system]Onset: 665352-33-0930NemvenxlOaplp connective tissue disease (1 source)Repeated falls; Translations: [Repeated falls]Onset: 06-21-2024 EpisodicOther connective tissue disease (3 sources)Other symptoms and signs involving the musculoskeletal system; Translations: [Other symptoms and signs involving the musculoskeletal system] Onset: 45-35-3950GbgiqmntPmbhk connective tissue disease (2 sources)Musculoskeletal finding; Translations: [Other symptoms and signs involving the musculoskeletal system]Onset: 238090-46-2786XhzzmncoHtdhj liver diseases (5 sources)Liver mass; Translations: [Hepatomegaly, not elsewhere classified] Onset: 009549-35-9112BbuokdrrZsddm nervous system disorders (4 sources)Difficulty walking; Translations: [Difficulty in walking, not elsewhere classified]Onset: 412885-07-2986BmlosjxZvkue nervous system disorders (1 source)Difficulty in walking, not elsewhere classified; Translations: [Difficulty in walking, not elsewhere classified]Onset: 96-45-3192GbagfbyGfwmd nervous system disorders (20 sources)Post-surgery back ffbi69-05-7117WeiigctwGtnlc non-traumatic joint disorders (1 source)Hip painOnset: 43-98-0600WwgrjmqjFmkkv non-traumatic joint disorders (1 source)Pain in right hip; Translations: [Pain in right hip]Onset: 06-18-2024 EpisodicPeripheral and visceral atherosclerosis (1 source)Peripheral vascular disease, unspecified; Translations: [Peripheral vascular disease, unspecified]Onset: 66-88-2434OysyhusVcnffxos codes; unclassified (2 sources)Other specified postprocedural states; Translations: [Other specified postprocedural states]Onset: 45-88-1179EyosydkoAdwdmbgm codes; unclassified (2 sources)Body mass index 20-24 - normal; Translations: [Body mass index (BMI) 22.0-22.9, adult]18-13-0907BffcpzgqKgdvxnvr codes; unclassified (1 source)Body mass index (BMI) 22.0-22.9, adult; Translations: [Body mass index (BMI) 22.0-22.9, adult]Onset: 78-58-1397KxmvdknsPybgzocluqj; intervertebral disc disorders; other back problems (18 sources)Post-surgery back pain; Translations: [Postlaminectomy syndrome, not elsewhere classified]Onset: 485615-62-3702BbvdsyvIoeetzhnldxj (1 source)ESOPHAGITIS UNSPEC WITHOUT BLEEDING; Translations: [ESOPHAGITIS UNSPEC WITHOUT BLEEDING]Onset: 25-57-5255Hmyqzwkhutpk (1 source)Abdominal Pain, Vomiting, DiarrheaOnset: 21-90-1196Fpbcarykpboj (2 sources)Patient encounter -[phone] Past or Other Problems Problem ClassificationProblemDateDocumented DateEpisodic/ChronicAbdominal pain (1 source)Abdominal painOnset: 28-28-3380QattsjjkAsksibjs of urinary tract (5 sources)Kidney stone; Translations: [Calculus of kidney]Onset: 12-02-2024 50-06-3723UpkwnwhlAdoqnksmet and other anemia (5 sources)Anemia; Translations: [Anemia, unspecified]Onset: 04-20-2024 86-01-9755NkhoebrrDimkebemq and duodenitis (4 sources)Gastritis, unspecified, without bleeding; Translations: [GASTRITIS UNS WITHOUT BLEEDING]Onset: 03-53-7250VdtmmwowEyek disorders (3 sources)Mood disordersOnset: Nausea and vomiting (2 sources)Nausea with vomiting, unspecified; Translations: [Vomiting]Onset: 33-28-4989GwogqxkwHrchquefodzbh gastroenteritis (1 source)Noninfective gastroenteritis and colitis, unspecified; Translations: [Noninfective gastroenteritis and colitis, unspecified]Onset: 94-87-8455Hfamoadx Other connective tissue disease (3 sources)Muscle wasting and atrophy, not elsewhere classified, right thigh; Translations: [Muscle wasting and atrophy, not elsewhere classified, right thigh]Onset: 07-20-4023RxdwmhhkWravo connective tissue disease (2 sources)Pain in lower limbOnset: 85-84-9172KdomsdhyIekqu gastrointestinal disorders (1 source)Diarrhea, unspecified; Translations: [Diarrhea, unspecified]Onset: 02-80-1958HxyyfthnVrsmy gastrointestinal disorders (1 source)DiarrheaOnset: 89-31-9882BbbpzxpeRibouueyrmm; intervertebral disc disorders; other back problems (15 sources)Backache; Translations: [Dorsalgia, unspecified]Onset: 06-21-2024 23-53-7118Zswebxlr Results Test NameValueInterpretationReference RangeFacilityAnesthesia Postprocedure Evaluationon [id number] Authentication Interface Message Text Anesthesia Postoperative Assessment: Vital Signs (most recent): BP 127/97 (BP Location: right arm) Pulse 90 Temp 37.3 ???C (99.1 ???F) (Temporal) Resp 18 Ht 5' (1.524 m) Wt 117 lb (53.1 kg) LMP 05/05/2025 SpO2 98% BMI 22.85 kg/m??? Anesthesia Post Evaluation Level of consciousness: awake Post-procedure exam normal. Body temperature, hydration status, PONV and pain evaluated and addressed. Pain management: adequate Hydration status: normal PONV:No nausea/vomiting reported Cardiopulmonary status stable Respiratory status: acceptable Cardiovascular status: acceptable ANESTHESIA NOTABLE EVENTS: No notable events documented.NormalThe [facility] SystemAnesthesia Transfer Of Careon 48-82-8877Gbqxrqfyhians Authentication Interface Message TextPatient taken to PACU. Patient was awake, comfortable, and stable on arrival. Anesthesia Transfer of Care Note Past Medical History: Medical History[1] Sleep Apnea/Positive STOP-BANG: No Problem List: Problem List[2] Past Surgical History: There is no previous surgical history on file. Allergies: Hydrocodone-acetaminophen Basic Operating Room Facts: Surgeon(s): Eloisa Beasley MD Anesthesiologist: Campos Waller MD SYSTEM PLANNING ENGINEER: Samantha Hernandez APRN-LOU Rate Engineer: Mil Wolfe MD REMOVAL POSTERIOR SPINAL INSTRUMENTATION, [...] None Lines, Drains, Airways Peripheral IV Access: 05/10/25638 18 gauge Right Arm (Active) Site Assessment WNL;Dressing intact 05/10/25633 Infusion Status Port #1 Capped;Patent;Positive blood return 05/10/25633 Peripheral IV Access: 05/10/25739 18 gauge Left Hand (Active) Airway Insertion Details [REMOVED] Advanced Airway: ETT, Oral #7 (Removed) 05/10/25729 Pre-Oxygenation/ Induction: Mask Rapid Sequence Induction?: Mask Ventilation: Easy Blade Type: Mac Blade Size: 3 Visualization: Grade 1 Airway Type: ETT, Oral Airway Size: #7 Post Insertion Assessment: Confirmation: Equal bilateral breath sounds, CO2 confirmed # Attempts >1: Special Equipment: Present on Admission?: Previously Removed / Not Present: Removal Reason: Not Removed at Discharge: Removed 05/10/25947 Location (cm) 22 05/10/25729 Measured from: Upper [...] R16.0 Migraine headache G43.909 Posttraumatic stress disorder F43.10NormalThe [facility] Creek Medical CenterElecsnet SystemBlood Attestationon 63-24-8769Wexfyqjvjzxll Authentication Interface Message TextBlood Attestation: ATTESTATION OF INFORMED CONSENT FOR BLOOD: The transfusion of blood and/or blood components were discussed with the patient and/or legal customer counter representative. The risks, benefits and alternatives were reviewed. Questions regarding blood transfusions were answered. The patient /or the patient's legal customer counter representative agree with the plan for transfusion of blood and/or blood components.NormalThe [facility] SystemBrief Operative Noteon 48-85-4955Ddfjeqhesznag Authentication Interface Message TextBrModus eDiscovery Operative Note MAIN OR 01 Doug Whiting 35 year old female Surgical Contact Serial Number: [id number] Preoperative Diagnosis: Pre-op Diagnosis * Failed back 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] Postoperative Diagnosis: * Failed back 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] Procedures: L5-S1 exploration and revision of hardware Posterolateral fusion L5-S1 Surgeon(s): Surgeon(s): Eloisa Beasley MD Staff: Scrub: Marylou Haney RN; Jomar Paige CST Police Aide Nurse: Marcos Huerta RN Roofing Superintendent: Fred Camp Director For [employer]: Rafa Sheehan MD Anesthesia: General Anesthesiologist: Campos Waller MD SYSTEM PLANNING ENGINEER: Samantha Hernandez APRN-LOU Rate Engineer: Mil Wolfe MD Specimen(s): * No specimens in log * Estimated Blood Loss: greater than 10 cc -- Esitmated Amount: 100cc Lines/Drains: Peripheral IV Access: 05/10/2539 18 gauge Right Arm (Active) Site Assessment WNL;Dressing intact 05/10/25633 Infusion Status Port #1 Capped;Patent;Positive blood return 05/10/25633 Peripheral IV Access: 05/10/2540 18 gauge Left Hand (Active) Surgical Drain [...] be admitted as an inpatient? No Dr. Beasley was present in the OR for the critical portion of the procedure and procedure sign-out. Signed by Rafa Sheehan MD 05/10/2025 9:41 AMNormalThe [facility] Medical CenterRitter Pharmaceuticals System Consultson 15-02-1820Uluixgqbmxuzq Authentication Interface Message Text Occupational Therapy and Physical Therapy Consult received, chart reviewed. Attempted to see pt for OT/PT evaluation with pt reporting doctor requested pt stay in bed post-op day 0 with plan to start therapy tomorrow. RN notified and reached out to via [employer] Secure Chat and clarified order via Dr. Beasley for bedrest today with no head of bed restrictions with plan to start therapy tomorrow. Plan to HOLD evaluation this date and complete when appropriate. Radha Ayala OTD, OTR/L Sujey David PT [phone]. [phone] HealthRitter Pharmaceuticals SystemOP Noteon 69-17-5002Qoodoowtltgdo Authentication Interface Message TextName: DOUG WHITING MR#: [id number] ENC#: [id number] Date of Procedure: 05/10/2025 ATTENDING SURGEON: Eloisa Beasley MD SAW REPAIRER: Rafa Sheehan MD PREOPERATIVE DIAGNOSES: 1. Status post L5-S1 fusion. 2. Rule out pseudoarthrosis L5-S1. PROCEDURES: 1. Removal of posterior nonsegmental instrumentation. 2. Posterior nonsegmental spinal instrumentation, L5-S1, with Glob[employer]o titanium screw and dennis system. 3. Posterolateral fusion, L5-S1. ANESTHESIA: General. ESTIMATED BLOOD LOSS: 100 cc. OPERATIVE INDICATIONS: The patient is a 35-year-old female, referred to me by her primary [...] minimal posterolateral bone on the CT scan. The patient refused to go back to her previous surgeon. Therefore, risks, benefits, and alternatives to exploration of the previous fusion, possible repair of dural tear, possible removal of the previous instrumentation and re-instrumentation at L5-S1 with posterolateral fusion were discussed with the patient, and she wished to proceed with surgery. OPERATIVE PROCEDURE: After proper consent and identification, the patient was taken to OR-1. General endotracheal anesthesia was administered. Antibiotics were given prophylactically. The patient was rolled prone on the Wilson table with posts. All bony prominences were [...] We then were able to take a [place] 1 between the pedicle screws and distract; [...] surgery. She will be maintained with a TIRE LAYER for her pain control. She will receive a standing AP and lateral lumbar spine x-ray when she is able. She will most likely require a 3-4 day hospital stay. MD MARQUISE Castillo/Tex/Dict: 05/10/2025 09:29:41 TRANS: 05/10/2025 13:09:03 JOB: [id number] DictJob#: [id number] [facility] SystemOR Nursingon 96-70-3372Aoxpugnseckis Authentication Interface Message TextFour Caps, two Rods, and four screws from previous surgery at outside hospital from patients spine per Dr Beasley.NormalThe [facility] SystemProgress Noteson 74-14-9364Gpgyrxbwusdkw Authentication Interface Message Textpatient prone on wilson with posts; bilateral arms extended out, palms facing down in anatomical position, padded with arm cradles, covered with blanket, and secured to arm board with safety straps; blanket between safety belt and patient; bilateral legs elevated with pillows x3 under legs; bilateral SCD's on and running; bilateral ankles padded with nerve protectors; bilateral feet free floating; anatomical alignment confirmed with surgical attending Skin interventions include: Mepilex on bilateral knees, bilateral iliac crest, bilateral chest, chin, bridge of nose, cheek bones, and forehead; no points of pressure directly on skinNormalThe ESKYroElecsnet SystemAnesthesia Preprocedure Evaluationon 09-81-3052Pthsumgndrnhx Authentication Interface Message TextASA: 3 No history of anesthetic complications NPO status: Greater than 8 hours Past Medical History and Review of Systems Pulmonary (+) asthma, a smoker (vape and marijuana everyday) (-) shortness of breath Dental - negative ROS Endo (-) obesity 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 Findings suggestive of arachnoiditis. Cardiovascular (+) hypertension (-) CAD, CHF No previous ECG available GI/Hepatic/Renal (+) GERD (-) renal disease, liver disease Heme/Other (+) anemia (-) bleeding disorder Other ROS: 35y F s/p L5-S1 fusion with late I AND D for a dural tear, significant L lower [...] were discussed with the patient and/or legal customer counter representative. The risks, benefits and alternatives were reviewed. Questions regarding anesthesia were answered. Patient and/or legal customer counter representative knows such anesthetics and procedures may be performed by Resident physicians, Certified Anesthesiologist Assistants, or Certified Nurse Anesthetists under the supervision of a physician. The patient /or the patient's legal customer counter representative agree with the plan for anesthesia. PATFORMNoNationwide Children's HospitalRED BLOOD CELL COMPONENTon [id number] ORDER ITEMProduct status info to followSt. Lawrence Psychiatric Center SystemComment on above:Performed By: #### RBO #### [facility] [address] [place] [address], [phone] BLOOD CELL UNIT STATUSon 90-44-5187CZKKS PRODUCT TLOOD2114P25LedstsZjk [facility] SystemComment on above:Performed By: #### RBU #### [facility] [address] [place] [address], [address]Lfdbgytcw By: #### RBU ####[facility] ZMIHMP[address] [place] [address], [address]YCRUG PRODUCT DESCRIPTIONRed Blood CellsNoGreen Cross Hospital SystemComment on above:Performed By: #### RBU #### S PATHOLOGY LABORATORY [address] [place] [address], [address]Bthvwubof By: #### RBU ####S PATHOLOGY ZGQWIQEXVL[address] [place] [address], [address]LOKQP PRODUCT STATUSNot usedNoGreen Cross Hospital SystemComment on above:Performed By: #### RBU #### [facility] [address] [place] [address], [address]Wlviaerwg By: #### RBU ####[facility] UNCBQMGWLD[address] [place] [address], [address]UBUMD PRODUCT UNIT [id number] NormalThe [facility] SystemComment on above:Performed By: #### RBU #### [facility] [address] [place], [address]EUOUH PRODUCT UNIT [id number] [facility] SystemComment on above:Performed By: #### RBU ####S PATHOLOGY [address]FS[address] [place], [address]MIAKH PRODUCT UNIT TYPE 6200NoGreen Cross Hospital SystemComment on above:Result Comment: A PosPerformed By: #### RBU #### [facility] [address] [place], [address]Gzfrpnnac By: #### RBU ####[facility] [address] [place], [address]QVDKYXIESU INTERPRETATIONCompatible (E)NormalVan Wert County Hospital SystemComment on above:Performed By: #### RBU #### [facility] [address] [place] [address], [address]Cazwbhtwv By: #### RBU ####[facility] CNSZSPTKAV[address] [place] [address], [address]Qhwqjmaw Noteson 05-03-2025 Dental Laboratory Manager Authentication Interface Message TextE-Consult is requested for the following Dx: 35 year old, female. Clinical Question AND Relevant Details (including any failed cardiac meds or relevant issues that could be impacting symptoms): patient is scheduled for Exploration L5-S1 fusion with removal hardware, reinstrumentation, repair dural tear on 05/10/2025. H/o asthma, smoker, dep/anxiety, anemia, POTS. Mets <4 had 2 lumbar surgeries since Jun 2024, unable to walk long distances d/t severe pain, uses a walker. Would she benefit from any intervention prior to surgery? I personally reviewed the following relevant data: EKG: C[facility] - sinus iRBBB Recommendations: Ms. Doug Whiting can proceed with surgery as planned with acceptable trupti-op and post-op CV event rate. Inder Gregory M.D., [facility], [place] call center associate, Non-invasive cardiology. Director, Cardiac CICU and Cardiac Telemetry Director, Nuclear Cardiology The majority of the service time of 6 minutes (>50%) was devoted to the medical consultative internet discussion.NormalThe [facility] Regional Medical CenterBASIC METABOLIC PANELon 46-53-9316Eswzl gap [Moles/Vol]13 mmol/OXdulnx07-91Xib [facility] SystemComment on above:Performed By: #### CH8, HEPATIC #### [facility] [address] [place] [address], [address]Nnjcekv [Mass/Vol]9.4 mg/dLNormal8.6-10.3The [facility] CenterroHealth SystemComment on above:Performed By: #### CH8, HEPATIC #### [facility] [address] [place], [address]Vrpxftrg [Moles/Vol]104 mmol/FYisjmi18-348Wml [facility] SystemComment on above:Performed By: #### CH8, HEPATIC #### [facility] [address] [place] [address], [address]CG1 [Moles/Vol]25 mmol/PDnrhfo50-70Zdn [facility] SystemComment on above:Performed By: #### CH8, HEPATIC #### [facility] [address] [place] [address], [address]Umkmtixfwh [Mass/Vol]0.75 mg/dLNormal0.60-1.20The [facility] SystemComment on above:Performed By: #### CH8, HEPATIC #### [facility] [address] [place] [address], [address]MAOKDWEPN GFR (CKD-EPI)107 mL/min/1.73sqmNormal>=60The [facility] SystemComment on above:Result Comment: 2020 CKD EPI Equation using Creatinine without Race Comment: Estimated glomerular filtration rate (eGFR) is calculated without a race coefficient. Values should be interpreted in the context of the patient's full clinical presentation. Reference: 1. Low C, Lazaro M, Joseph DC, et al.. A Unifying Approach for GFR Estimation: Recommendations of the NKF-ASN Task Force on Reassessing the Inclusion of Race in Diagnosing Kidney Disease. AmericanJournal of Kidney Diseases 2021;79(2):268-88.e1. 2. N Engl J Med 1 Vol. 385 Issue 19 Pages 8960-6099Performed By: #### CH8, HEPATIC #### [facility] [address] [place], [address]Gvrqzxu [Mass/Vol]83 mg/jIJnjcif16-202Ovo [facility] CenterroHealth SystemComment on above:Performed By: #### CH8, HEPATIC #### S [facility] LABORATORY [address] [place], [address]Cepnjaroy [Moles/Vol]4.5 mmol/LNormal3.5-5.0The [facility] SystemComment on above:Performed By: #### CH8, HEPATIC #### S [facility] LABORAT[facility] [address] [place], [address]Obmqia [Moles/Vol]137 mmol/FRvhmjj985-417Ubk [facility] CenterroHealth SystemComment on above:Performed By: #### CH8, HEPATIC #### S [facility] [address] [place] [address], [address]Bngo nitrogen [Mass/Vol]12 mg/dLNormal7-25The [facility] SystemComment on above:Performed By: #### CH8, HEPATIC #### [facility] [address] [place] [address], [address]Ykzvi metabolic 2000 panelon 01-24-8345Tvlbf gap [Moles/Vol]13 mmol/L10 - 20MetroHealthCalcium [Mass/Vol]9.4 mg/dL8.6 - 10.3 mg/dLMetroHealthChloride [Moles/Vol]104 mmol/L98 - 107 mmol/LMetroHealthCO2 [Moles/Vol]25 mmol/L21 - 31 mmol/LMetroHealthCreatinine [Mass/Vol]0.75 mg/dL0.60 - 1.20 mg/dLMetroHealthGFR/1.73 sq M.predicted CKD-EPI (S/P/Bld) [Vol rate/Area]107- PINFMetroHealthComment on above:2020 CKD EPI Equation using Creatinine without Race Comment: Estimated glomerular filtration rate (eGFR) is calculated without a race coefficient. Values should be interpreted in the context of the patient's full clinical presentation. Reference: 1. Low C, Lazaro M, Joseph CASTILLO, et al.. A Unifying Approach for GFR Estimation: Recommendations of the NKF-ASN Task Force on Reassessing the Inclusion of Race in Diagnosing Kidney Disease. AmericanJournal of Kidney Diseases 2021;79(2):268-88.e1. 2. N Engl J Med 1 Vol. 385 Issue 19 Pages 3694-6694 Glucose [Mass/Vol]83 mg/dL74 - 109 mg/dLMetroHealthInterpretation and review of laboratory resultsNormalMetroHealthPotassium [Moles/Vol]4.5 mmol/L3.5 - 5.0 mmol/LMetroHealthSodium [Moles/Vol]137 mmol/L136 - 145 mmol/LMetroHealthUrea nitrogen [Mass/Vol]12 mg/dL7 - 25 mg/dLMetroHealthCBC WITH DIFFERENTIALon 66-85-8686Ywbdaguyz (Bld) [#/Vol]0.06 10*3/uLNormal0.00-0.20The [facility] CenterroCleveland Clinic Hillcrest [facility] SystemComment on above:Performed By: #### CBCDSAT ####S PATHOLOGY [address]MUJ[address] [place], [address]Olthwlgxq/100 WBC (Bld) 0.8 %Normal<=1.9The [facility] CenterroHealth SystemComment on above:Performed By: #### CBCDSAT ####S PATHOLOGY YQCLTNWOQT[address] [place], [address]Phlzxbcapvz (Bld) [#/Vol]0.12 10*3/uLNormal0.00-0.70The [facility] SystemComment on above:Performed By: #### CBCDSAT ####S PATHOLOGY SI[address]MUJQRM[address] [place], [address]Hitzwovgnhq/100 WBC (Bld)1.7 %Normal0.1-4.0The [facility] SystemComment on above:Performed By: #### CBCDSAT ####S PATHOLOGY IKOGHKDMVK[address] [place], [address]Zwduuobqwbz distribution width (RBC) [Ratio]16.9 %High11.5-14.5The [facility] CenterHealth SystemComment on above:Performed By: #### CBCDSAT ####[facility] QXMAYNHLVK[address] [place], [address]Colbounkya (Bld) [Volume fraction]31.4 %Low36.0-46.0The [facility] CenterHealth SystemComment on above: Performed By: #### CBCDSAT ####[facility] EBBSEVSWQL[address] [place], [address]Sbitpdcmib (Bld) [Mass/Vol]10.3 g/dLLow12.0-15.0 The [facility] CenterHealth SystemComment on above:Performed By: #### CBCDSAT ####[facility] IUJBKNICLK[address] [place] [address], [address]Grxcnmiutpc (Bld) [#/Vol]2.18 10*3/uLNormal1.00-4.80The [facility] SystemComment on above: Performed By: #### CBCDSAT ####[facility] EINASDKRGC[address] [place] [address], [address]Zslphfpcqqy/100 WBC (Bld)30.6 %Wsxnav82.0-44.0The [facility] SystemComment on above:Performed By: #### CBCDSAT ####[facility] [address]UHNNSYJXW[address] [place] [address], [address]XOX (RBC) [Entitic mass]23.5 pgLow26.0-34.0The [facility] SystemComment on above:Performed By: #### CBCDSAT ####[facility] IHLCTANJCV[address] [place] [address], [address]EHMQ (RBC) [Mass/Vol]32.9 g/iXRruail14.0-35.9The [facility] System Comment on above:Performed By: #### CBCDSAT ####[facility] TEFFOIJBGW[address] [place] [address], [address]PLM (RBC) [Entitic vol]71 jUDfm31-502 The [facility] SystemComment on above:Performed By: #### CBCDSAT ####[facility] SJDHCKANUK[address] [place] [address], [address]Trokmqzuy (Bld) [#/Vol]0.51 10*3/uLNormal0.20-1.00The [facility] CenterroHealth SystemComment on above: Performed By: #### CBCDSAT ####[facility] GCMOIYLIBC[address] [place] [address], [address]Jpkekldzd/100 WBC (Bld)7.1 %Normal2.0-11.0The [facility] CenterroHealth SystemComment on above:Performed By: #### CBCDSAT ####[facility] PHNJYSZZCX[address] [place] [address], [address]Ypmkvzdwigh (Bld) [#/Vol]4.27 10*3/uLNormal1.50-8.00The [facility] CenterroHealth SystemComment on above: Performed By: #### CBCDSAT ####[facility] NRETRRTVTA[address] [place] [address], [address]Riwplwhyncq/100 WBC (Bld)59.8 %Joofua67.0-76.0The [facility] CenterHealth SystemComment on above:Performed By: #### CBCDSAT ####[facility] YEABGWTLIZ[address] [place] [address], [address]Jexitesk mean volume (Bld) [Entitic vol]11.7 fLHigh7.5-11.2The [facility] CenterHealth SystemComment on above: Performed By: #### CBCDSAT ####[facility] CDFOFTEDJB[address] [place] [address], [address]Gmzvcyide (Bld) [#/Vol]225 10*3/rRYdsvrf707-192Rbb [facility] CenterHealth SystemComment on above:Performed By: #### CBCDSAT ####[facility] QPYUGFYFSY[address] [place] [address], [address]HJC (Bld) [#/Vol]4.41 10*6/uLNormal4.00-5.20The [facility] CenterHealth SystemComment on above:Performed By: #### CBCDSAT ####[facility] BOQGNSFSUD[address] [place] [address], [address]EPB (Bld) [#/Vol]7.1 10*3/uLNormal4.5-11.5The [facility] Comment on above:Performed By: #### CBCDSAT ####S PATHOLOGY [address]LLFYT[address] [place], [address]YGMDUYTXFAGJ ABO/RHon 66-28-0951VEN and Rh group Nom (Bld)Blood group A Rh(D) positiveLakeHealth TriPoint Medical Center Comment on above:Performed By: #### ABORH #### S PATHOLOGY LABORATORY [address] [place] [address], [address]UUJNDBJP [id number] [facility] SystemComment on above:Performed By: #### ABORH #### [facility] [address] [place] [address], [address]NWQBOIG FUNCTION PANELon 56-06-4233Uaqpfym [Mass/Vol] 4.5 g/dLNormal3.5-5.7The [facility] SystemComment on above:Performed By: #### CH8, HEPATIC #### [facility] [address] [place] [address], [address]XIX94 IU/MBwkepy54-108Ods [facility] SystemComment on above:Performed By: #### CH8, HEPATIC #### [facility] [address] [place] [address], [address]QWF [Catalytic activity/Vol]8 U/LNormal7-52The [facility] SystemComment on above:Performed By: #### CH8, HEPATIC #### S PATHOLOGY LABORATORY [address] [place] [address], [address]TID [Catalytic activity/Vol]14 U/URugopn12-95Qzr [facility] SystemComment on above:Performed By: #### CH8, HEPATIC #### S [facility] LABORATORY [address] [place] [address], [address]Uwepmbejb [Mass/Vol]0.2 mg/dLLow0.3-1.0The [facility] SystemComment on above:Result Comment: Note updated reference range.Performed By: #### CH8, HEPATIC #### [facility] [address] [place] [address], [address]EDMZ< 0.35Duyoqd0.03-0.18The [facility] SystemComment on above:Performed By: #### CH8, HEPATIC #### S PATHOLOGY LABORATORY [address] [place], [address]Gpmvqat [Mass/Vol]7.0 g/dLNormal6.1-7.9The [facility] SystemComment on above:Result Comment: Note updated reference range.Performed By: #### CH8, HEPATIC #### [facility] [address] [place], [address]Nhquuzpufv - Blood bankon 82-68-0870DTP and Rh group Nom (Bld)Blood group A Rh(D) positiveMetroHealthABO and Rh group Nom (Bld)No Previous ResultsMetroHealthComment on above:Patient does not require a 2nd sample drawn prior to surgery date of 05/10/25. Specimen meets [email or web address]'s Pre- Surgical Protocol and is valid within 30 days from date of collection but will atmidnight on the day of approved Surgery.Blood group antibody screen Ql NegativeMetroHealthABO and Rh group Nom (Bld)Blood group A Rh(D) positive MetroHealthLaboratory - Chemistry and Chemistry - challengeon 58-68-9613Hayepuq [Mass/Vol]4.5 g/dL3.5 - 5.7 g/dLMetroHealthALP [Catalytic activity/Vol]55 U/L [facility]HealthALT [Catalytic activity/Vol]8 U/LMetroHealthAST [Catalytic activity/Vol]14 U/LMetroHealthBilirubin [Mass/Vol]0.2 mg/dLLow0.3 - 1.0 mg/dL MetroHealthComment on above:Note updated reference range.Bilirubin.direct [Mass/Vol]mg/dL0.03 - 0.18 mg/dLMetroHealthProtein [Mass/Vol]7 g/dL6.1 - 7.9 g/dLMetroHealthComment on above:Note updated reference range.Laboratory - Coagulationon 67-66-2439yHJJ Coag (Bld) [Time]29 sMetroHealthINR Coag (PPP) [Relative time]0.93 {INR}0.90 - 1.10MetroHealthPT Coag (PPP) [Time]10.4 s MetroHealthLaboratory - Hematology and Cell countson 88-54-4557Zxjdiswma (Bld) [#/Vol]0.06 10*3/uL0.00 - 0.20 K/uLMetroHealthBasophils/100 WBC (Bld)0.8 %NINF - 1.9 %MetroHealthEosinophils (Bld) [#/Vol]0.12 10*3/uL0.00 - 0.70 K/uL MetroHealthEosinophils/100 WBC (Bld)1.7 %0.1 - 4.0 %MetroHealthErythrocyte distribution width (RBC) [Ratio]16.9 %High11.5 - 14.5 %MetroHealthHematocrit (Bld) [Volume fraction]31.4 %Low36.0 - 46.0 %MetroHealthHemoglobin (Bld) [Mass/Vol]10.3 g/dLLow12.0 - 15.0 g/dLMetroHealthLymphocytes (Bld) [#/Vol]2.18 10*3/uL1.00 - 4.80 K/uLMetroHealthLymphocytes/100 WBC (Bld)30.6 %24.0 - 44.0 % MetroHealthMCH (RBC) [Entitic mass]23.5 pgLow26.0 - 34.0 pgMetroHealthMCHC (RBC) [Mass/Vol]32.9 g/dL32.0 - 35.9 g/dLMetroHealthMCV (RBC) [Entitic vol]71 fLLow80 - 100 fLMetroHealthMonocytes (Bld) [#/Vol]0.51 10*3/uL0.20 - 1.00 K/uL MetroHealthMonocytes/100 WBC (Bld)7.1 %2.0 - 11.0 %MetroHealthNeutrophils (Bld) [#/Vol]4.27 10*3/uL1.50 - 8.00 K/uLMetroHealthNeutrophils/100 WBC (Bld)59.8 % 31.0 - 76.0 %MetroHealthPlatelet mean volume (Bld) [Entitic vol]11.7 fLHigh7.5 - 11.2 fLMetroHealthPlatelets (Bld) [#/Vol]225 10*3/uL150 - 400 K/uLMetroHealthRBC (Bld) [#/Vol]4.41 10*6/uLMetroHealthWBC (Bld) [#/Vol]7.1 10*3/uL4.5 - 11.5 K/uL MetroHealthNo Panel Informationon 94-35-0377Uxrlimvjkqfpnc and review of laboratory resultsNormalMetroHealthMetroHealthSpecimen Expiration Date [id number]jwjidvcclzpu and review of laboratory resultsAbnormalMetroHealthMetroHealthSpecimen Expiration [id number] MetroHealthMetroHealthInterpretation and review of laboratory resultsAbnormal MetroHealthMetroHealthPARTIAL THROMBOPLASTIN TIMEon [id number] Coag (Bld) [Time]29 wNluboq96-21Xuc [facility] CenterroHealth SystemComment on above:Performed By: #### APTT, PT #### [facility] [address] [place] [address], [phone] TIME AND INRon 67-46-8096ZWW Coag (PPP) [Relative time]0.93 {INR}Normal0.90-1.10The [facility] CenterroCleveland Clinic Hillcrest Hospital SystemComment on above: Performed By: #### APTT, PT #### [facility] [address] [place] [address], [phone] Coag (PPP) [Time]10.4 sNormal9.7-12.9The [facility] CenterroCleveland Clinic Hillcrest Hospital SystemComment on above:Performed By: #### APTT, PT #### [facility] [address] [place] [address], [phone] Instructionson [id number] Authentication Interface Message TextOn the morning of your surgery, please take [...] for pain. Please hold all Vitamin E, Fajardo 3, fish oil and herbal supplements for [...] otherwise contacted. ? Expect a call from [facility] one business day prior to surgery for surgery arrival time and location. ? Please plan to restart your medications the day after surgery unless otherwise explicitly instructed. ? Please contact your surgeon's/proceduralist's office for any surgical or recovery types of questions. ? CANCELLING YOUR SURGERY/PROCEDURE: If you get a cold, are not feeling well, or become , please call your surgeon's office as soon as possible. ? Refer to your Preparing for Your Surgery/Procedure booklet or [facility].org/surgery if you have questions. Contact the Pre-Admission Testing department at [phone] or your surgeon's office with any questions [...] stay with you after surgery. Please call [facility] [employer] if you need transportation assistance or have concerns about going home [phone]. Post-op Nausea and Vomiting: A risk of anesthesia is nausea and/or vomiting (PONV). Certain patients are at higher risk than others. Talk to your anesthesiologist about the plan to minimize this risk. In general, it is best to start with only ice chips or small sips of [...] of your surgery. Thank you for choosing [facility]; it is our pleasure to care for [facility] SystemProgress Noteson 29-11-9006Rmjffphbcnack Authentication Interface Message TextPatient was identified by name and date of . Harjinder Verdin Glenbeigh HospitalTranscription Authentication Interface Message TextDX: Failed back LV: [id number] Ms Whiting comes in today with family. It is her preoperative appointment. We spent about 45 minutes talking about the upcoming surgery. They understand the importance of regular bowel habits going into surgery. We reviewed the Generalities, Expectations and Home Instructions concerning the surgery. We reviewed the MRI and CT scan and discussed the surgical plan. She expects to be flat in bed for 3 days postop. The Informed Consent was signed electronically. They will follow up the day of their surgery.WolcottThe [facility] SystemTYPE AND SCREENon [id number] and Rh group Nom (Bld)Blood group A Rh(D) positive NormalThe [facility] CenterHealth SystemComment on above:Performed By: #### TS #### [facility] [address] [place] [address], [phone] and Rh group Nom (Bld)No Previous ResultsNoGreen Cross Hospital SystemComment on above:Result Comment: Patient does not require a 2nd sample drawn prior to surgery date of 05/10/25. Specimen meets Blood Bank's Pre-Surgical Protocol and is valid within 30 days from date of collection but will at midnight on the day of approved Surgery.Performed By: #### TS #### [facility] [address] [place] [address], [id number] INTNegativeNoGreen Cross Hospital SystemComment on above:Performed By: #### TS #### [facility] [address] [place] [address], [phone] [id number] MetroHealth SystemComment on above:Performed By: #### TS #### [facility] [address] [place] [address], [phone] Noteson [id number] Authentication Interface Message TextDX: Failed back LV: [id number] Ms Whiting returns today to review the MRIs ordered at our last visit. PE: Unchanged INV: MRI cervical and thoracic spines performed [id number] MRIs lumbar performed [id number] IMP: 35yo female s/p L5-S1 fusion with ongoing symptoms. PLAN: I told her I'm not sure where her symptoms are coming from. I don't know what happened during the second surgery to give her these symptoms. I offered her exploration of the fusion with possible repair of dural tear and reinstrumentation. She can call the office to schedule or follow up PRN.Normal The [facility] CenterroElecsnet SystemMR L-SPINE W/Oon [id number] L-SPINE W/OAddendum Begins Addendum: EXAMINATION: MR L-SPINE W/OPRO 03/08/2025 09:22 PM CLINICAL HISTORY: Low back pain, 6 weeks or more; S/P lumbar surgery; X-ray L- spine done ASSOCIATED DIAGNOSIS: Failed back surgical syndrome ORDERING PROVIDER: ELOISA BEASLEY TECHNOLOGISTS NOTE: Pt unable to hold still [...] SPINAL CANAL STENOSIS. FINDINGS SUGGESTIVE OF ARACHNOIDITIS. Addendum Ends EXAMINATION: MR L-SPINE W/OPRO 03/08/2025 09:22 PM CLINICAL HISTORY: Low back pain, 6 weeks or more; S/P lumbar surgery; X-ray L- spine done ASSOCIATED DIAGNOSIS: Failed back surgical syndrome ORDERING PROVIDER: ELOISA BEASLEY TECHNOLOGISTS NOTE: Pt unable to hold still [...] stenosis. Findings suggestive of arachnoiditis. arachnoiditis. MACRO: [facility] Lumbar spine WO contraston 03-09-2025 Addendum by Scout Enriquez MD on 03/09/2025 9:32 AM EDT EXAMINATION: MR L-SPINE W/OPRO 03/08/2025 09:22 PM CLINICAL HISTORY: Low back pain, 6 weeks or more; S/P lumbar surgery; X-ray L-spine done ASSOCIATED DIAGNOSIS: Failed back surgical syndrome ORDERING PROVIDER: ELOISA BEASLEY TECHNOLOGISTS NOTE: Pt unable to hold still due to pain and clautrophobia even though premedicated. Unable to do repeats. Best images achievable.mds COMPARISON: Lumbar spine CT from 12/06/2024 TECHNIQUE: Patient questionnaire was completed and was reviewed by MRI personnel prior to the patient entering the scanner. Multiplanar, multisequence MR imaging of the lumbar spine was performed without intravenous contrast. FINDINGS: Counting reference: Lumbosacral junction. L4-5 is at the level of the iliac crests, and there are 5 nonrib-bearing lumbar-type vertebral bodies. Alignment: Within normal limits. [...] SPINAL CANAL STENOSIS. FINDINGS SUGGESTIVE OF ARACHNOIDITIS. MetroHealthEXAMINATION: MR L-SPINE W/OPRO 03/08/2025 09:22 PM CLINICAL HISTORY: Low back pain, 6 weeks or more; S/P lumbar surgery; X-ray L- spine done ASSOCIATED DIAGNOSIS: Failed back surgical syndrome ORDERING PROVIDER: ELOISA BEASLEY TECHNOLOGISTS NOTE: Pt unable to hold still [...] Findings suggestive of arachnoiditis. arachnoiditis. MACRO: None Scout Hernandez MD - 03/09/2025 EXAMINATION: MR L-SPINE W/OPRO 03/08/2025 09:22 PM CLINICAL HISTORY: Low back pain, 6 weeks or more; S/P lumbar surgery; X-ray L- spine done ASSOCIATED DIAGNOSIS: Failed back surgical syndrome ORDERING PROVIDER: ELOISA BEASLEY TECHNOLOGISTS NOTE: Pt unable to hold still [...] Findings suggestive of arachnoiditis. arachnoiditis. MACRO: None [facility] CenterElecsnet Lumbar spine WO contrastOrdered By: Scout Enriquez on 03-09-2025 [employer] Work Phone: MR T-SPINE W/Oon [id number] T-SPINE W/OEXAMINATION: MR T-SPINE W/OPRO 03/08/2025 09:25 PM CLINICAL HISTORY: myelopathy ASSOCIATED DIAGNOSIS: Failed back surgical syndrome ORDERING PROVIDER: ELOISA BEASLEY TECHNOLOGISTS NOTE: Pt motion due to pain [...] neural foraminal stenosis. IMPRESSION: Normal study. MACRO: NoneNormalThe [facility] CenterroHealth SystemMR Thoracic spine WO contraston [id number]: MR T-SPINE W/OPRO 03/08/2025 09:25 PM CLINICAL HISTORY: myelopathy ASSOCIATED DIAGNOSIS: Failed back surgical syndrome ORDERING PROVIDER: ELOISA BEASLEY TECHNOLOGISTS NOTE: Pt motion due to pain [...] foraminal stenosis. IMPRESSION: Normal study. MACRO: None Scout Hernandez MD - 03/09/2025 EXAMINATION: MR T-SPINE W/OPRO 03/08/2025 09:25 PM CLINICAL HISTORY: myelopathy ASSOCIATED DIAGNOSIS: Failed back surgical syndrome ORDERING PROVIDER: ELOISA BEASLEY TECHNOLOGISTS NOTE: Pt motion due to pain [...] foraminal stenosis. IMPRESSION: Normal study. MACRO: None MetroHealthMetroHealthMR Lumbar spine WO contraston [id number] Study observation (narrative)MetroHealthMR Thoracic spine WO contraston 03-08-2025 Radiology Study observation (narrative)MetroHealthAddendum Noteon 02-22-2025 Dental Laboratory Manager Authentication Interface Message TextAddended by: ELOISA BEASLEY on: 02/22/2025 03:05 AM Modules accepted: OrdersNormalThe [facility] Medical CenterElecsnet SystemProgress Noteson 02-22-2025 Dental Laboratory Manager Authentication Interface Message Lynda Bean Rebecca, [place] Can we give her something to get through the MRI';s had a hard time with the last one. [facility] is correct in chart. Valium prescription pended to Dr Beasley for approval and signature.NormalThe [facility] Medical CenterElecsnet SystemMR C-SPINE W/Oon [id number] C-SPINE W/OEXAMINATION: MR C- SPINE W/O CLINICAL HISTORY: Neck pain, 6 weeks or more; X-ray C-spine done ASSOCIATED DIAGNOSIS: Failed back surgical syndrome ORDERING PROVIDER: ELOISA BEASLEY TECHNOLOGISTS NOTE: COMPARISON: CT of the cervical spine from 12/02/2024 (outside institution). TECHNIQUE: Patient questionnaire was completed, and was reviewed by MRI personnel prior to the patient entering the scanner. Multiplanar, multisequence MR imaging of the cervical spine was performed without intravenous contrast. FINDINGS: Counting reference: Craniocervical junction. Anatomic variants: None. Alignment: Normal. Vertebral Body Height: Normal. Bone Marrow: Normal. Cord: Normal signal intensity and morphology. Craniocervical Junction, Cervical Soft Tissues and Included Brain: Within normal limits. C2-C3: No significant spinal canal or neural foraminal stenosis. C3-C4: No significant spinal canal or neural foraminal stenosis. C4-C5: No significant spinal canal or neural foraminal stenosis. C5-C6: No significant spinal canal or neural foraminal stenosis. C6-C7: No significant spinal canal or neural foraminal stenosis. C7-T1: No significant spinal canal or neural foraminal stenosis. IMPRESSION: Normal study. I have personally reviewed the images and agree with the resident's interpretation.NormalThe [facility] Cervical spine WO contraston [id number]: MR C-SPINE W/O CLINICAL HISTORY: Neck pain, 6 weeks or more; X-ray C-spine done ASSOCIATED DIAGNOSIS: Failed back surgical syndrome ORDERING PROVIDER: ELOISA BEASLEY TECHNOLOGISTS NOTE: COMPARISON: CT of the cervical spine from 12/02/2024 (outside institution). TECHNIQUE: Patient questionnaire was completed, and was reviewed by MRI personnel prior to the patient entering the scanner. Multiplanar, multisequence MR imaging of the cervical spine was performed without intravenous contrast. FINDINGS: Counting reference: Craniocervical junction. Anatomic variants: None. Alignment: Normal. Vertebral Body Height: Normal. Bone Marrow: Normal. Cord: Normal signal intensity and morphology. Craniocervical Junction, Cervical Soft Tissues and Included Brain: Within normal limits. C2-C3: No significant spinal canal or neural foraminal stenosis. C3-C4: No significant spinal canal or neural foraminal stenosis. C4-C5: No significant spinal canal or neural foraminal stenosis. C5-C6: No significant spinal canal or neural foraminal stenosis. C6-C7: No significant spinal canal or neural foraminal stenosis. C7-T1: No significant spinal canal or neural foraminal stenosis. IMPRESSION: Normal study. I have personally reviewed the images and agree with the resident's interpretation. Scout Hernandez MD - 02/07/2025 EXAMINATION: MR C-SPINE W/O CLINICAL HISTORY: Neck pain, 6 weeks or more; X-ray C-spine done ASSOCIATED DIAGNOSIS: Failed back surgical syndrome ORDERING PROVIDER: ELOISA BEASLEY TECHNOLOGISTS NOTE: COMPARISON: CT of the cervical spine from 12/02/2024 (outside institution). TECHNIQUE: Patient questionnaire was completed, and was reviewed by MRI personnel prior to the patient entering the scanner. Multiplanar, multisequence MR imaging of the cervical spine was performed without intravenous contrast. FINDINGS: Counting reference: Craniocervical junction. Anatomic variants: None. Alignment: Normal. Vertebral Body Height: Normal. Bone Marrow: Normal. Cord: Normal signal intensity and morphology. Craniocervical Junction, Cervical Soft Tissues and Included Brain: Within normal limits. C2-C3: No significant spinal canal or neural foraminal stenosis. C3-C4: No significant spinal canal or neural foraminal stenosis. C4-C5: No significant spinal canal or neural foraminal stenosis. C5-C6: No significant spinal canal or neural foraminal stenosis. C6-C7: No significant spinal canal or neural foraminal stenosis. C7-T1: No significant spinal canal or neural foraminal stenosis. IMPRESSION: Normal study. I have personally reviewed the images and agree with the resident's interpretation. [facility] HospitalRad[facility] Study observation (narrative)[facility] Cervical spine WO contrastOrdered By: Scout Enriquez on 30-61-0594MltgnElxxcq Work Phone: Progress Noteson [id number] Authentication Interface Message TextCONSULTED BY: Gale Duran MD CC: Neck pain with headaches, lower back pain and L leg misery HPI: 35yo female s/p L5-S1 decompression and fusion done 09/16/[address]24 at [place] [address] Dr Manrique, reexploration with repair of dural tear . Significant L leg misery before her 1st surgery. After her 1st surgery her L leg was significantly improved but after the 2nd operation her L lower extremity symptoms are worse than they were before the 1st surgery. Also complains of back pain. She states after her 2nd surgery she woke without the ability to move either lower extremity. She states this was worked up emergently but found nothing. Her lower extremity function soon returned after the 1st surgery. She states she has had a dependent headache since her 1st surgery that is worse when she is upright gets better if she is lying flat.3-8/10 VAS daily. Weakness, numbness and tingling in her L leg. Concerning symptoms of myelopathy -- clumsiness in her hands, clumsiness in her gait but no bowel nor bladder symptoms. She does have significant anxiety and a apprehension with rapid head movements. For PMHx, PSHx, medications, allergies, SOCHx, ROS and FAMHx, please refer to the scanned New patient Questionnaire PHYSICAL EXAM: General: AXOX3, mild distress. Lower extremities: She rises cautiously from a seated position. She walks with an extremely antalgic gait on the L side. Heel walking and toe walking is better on the R. tandem walking can not be tested secondary to her gait pattern. She gets on off the exam table cautiously. Positive straight leg raise on the L, negative straight leg raise on the R appears to be 5/5 throughout but with significant dysesthesias with any examination of her L lower extremity DTRs are hyperactive and equal in her knee jerk and ankle jerk and she has no clonus. Fairly full nontender range of motion bilateral hips knees and ankles. Upper extremities: 5/5 throughout but decreased light touch to the tips of her fingers nondermatomally. Deep tendon reflexes are normoactive and equal in her biceps, triceps and brachioradialis; negative Bernie sign bilaterally. Full nontender range of motion bilateral shoulders elbows and wrists. Spine: Cervical spine range of motion is diminished in all planes secondary to subjective pain. Lumbar spine reveals a well-healed midline incision that is exquisitely tender and sensitive to touch INVESTIGATIONS: No available studies to you to day, she brings in a CD with multiple studies. IMPRESSION: 35yo female status post L5-S1 fusion with late I and D for a dural tear, significant L lower extremity dysesthesias, rule out cervical and thoracic myelopathy. PLAN: I told her it is very difficult to determine what is going on here. I told her I feel uncomfortable as her last surgery was literally less than 2 months ago. She adamantly does not want to follow up with her previous surgeon. Dr. Duran notified me specifically about her case. I told her I would try to help her the best I could. We will start with MRIs of her barrios spine. She can have those done closer to home and we will call her on the phone with the next step in her treatment after we receive those studies.NormalThe [facility] ANION GAPon 68-48-3082Uawnt gap [Moles/Vol]9.0 mmol/LNormal8.0-16.0SaThe Hospitals of Providence Horizon City CampusComment on above:Result Comment: ANION GAP = Sodium -(Chloride + CO2)Performed By: #### EGFR1, ANION, HH, BMP #### [facility] [address] [place], [place] [address]Wntbm Gapon 68-62-3263Jzqcl gap [Moles/Vol]9 mmol/L8.0 - 16.0 meq/LBon Secours Mercy HealthComment on above:ANION GAP = Sodium -(Chloride + CO2) Performed at [facility] [address] [place] [address] BASIC METABOL PANELon 76-08-6129Ppdtbcw [Mass/Vol]9.3 mg/dLNormal8.6-10.0[facility] StephenvilleComment on above:Performed By: #### EGFR1, ANION, HH, BMP #### [facility] [address] [place] [address]AF5 [Moles/Vol]25 mmol/NUgkhyq52-82LsoaeTexas Health Harris Methodist Hospital Stephenville Comment on above:Performed By: #### EGFR1, ANION, HH, BMP #### [facility] [address] [place] [address]Zqphvzshlv [Mass/Vol]0.7 mg/dLNormal0.5-0.9[facility] StephenvilleComment on above:Performed By: #### EGFR1, ANION, HH, BMP #### [facility] [address] [place] [address]Hzradsl [Mass/Vol]105 mg/pTMgzmqf41-792DulzzTexas Health [facility] Stephenville Comment on above:Performed By: #### EGFR1, ANION, HH, BMP #### [facility] [address] [place] [address]Wdvm nitrogen [Mass/Vol]13 mg/dLNormal8-23[facility] StephenvilleComment on above:Performed By: #### EGFR1, ANION, HH, BMP #### [facility] [address] [place] [address]Ptqfaxka [Moles/Vol]106 mmol/UXktuex54-887XksjkTexas Health Harris Methodist Hospital StephenvilleComment on above:Performed By: #### EGFR1, ANION, HH, BMP #### [facility] [address] [place] [address]Ayefthmsk [Moles/Vol]3.7 mmol/LNormal3.5-5.2SMemorial Hermann Memorial City Medical CenterComment on above:Performed By: #### EGFR1, ANION, HH, BMP #### [facility] [address] [place] [address]Ilippq [Moles/Vol]140 mmol/EOukctc053-718Zlhmg [facility]eton Valley HospitalComment on above:Performed By: #### EGFR1, LISA, HH, BMP #### [facility] [address] [place], [place] [address]Kdyjh metabolic 2000 panelon 85-76-4516Wzlwjeg [Mass/Vol]9.3 mg/dL 8.6 - 10.0 mg/dLBon Adena Health SystemComment on above:Performed at [facility] [address] [place], [place] [address]Ydiwskap [Moles/Vol]106 mmol/L98 - 111 meq/LBon [facility] HealthCO2 [Moles/Vol]25 mmol/L22 - 29 meq/LBon Adena Health SystemCreatinine [Mass/Vol]0.7 mg/dL0.5 - 0.9 mg/dLBon Adena Health SystemGlucose [Mass/Vol]105 mg/dL74 - 109 mg/dLBon Adena Health System Potassium [Moles/Vol]3.7 mmol/L3.5 - 5.2 meq/LBon Adena Health SystemSodium [Moles/Vol]140 mmol/L135 - 145 meq/LBon Adena Health SystemUrea nitrogen [Mass/Vol]13 mg/dL8 - 23 mg/dLBon Adena Health SystemEKG Rhythm Stripon 13-63-243326AKNLXDEPyxNaval Medical Center Portsmouth72 bpmPACENaval Medical Center Portsmouth GFR, ESTIMATEDon 78-12-1786OOU/1.73 sq M.predicted MDRD (S/P/Bld) [Vol rate/Area]mL/min/{1.73_m2}Normal>60Bon Adena Health SystemComment on above: Pediatric calculator link https://www.kidney.org/professionals/kdoqi/gfr_calculatorped Effective Mar 31, 2022 These results are not intended for use in patients <18 years of age. eGFR results are calculated without a race factor using the 2020 CKD-EPI equation. Careful clinical correlation is recommended, particularly when comparing to results calculated using previous equations. The CKD-EPI equation is less accurate in patients with extremes of muscle mass, extra-renal metabolism of creatinine, excessive creatine ingestion, or following therapy that affects renal tubular secretion. Performed at [address] [address] Result Comment: Pediatric calculator link https://www.kidney.org/professionals/kdoqi/gfr_calculatorped Effective Mar 31, 2022 These results are not intended for use in patients <18 years of age. eGFR results are calculated without a race factor using the 2020 CKD-EPI equation. Careful clinical correlation is recommended, particularly when comparing to results calculated using previous equations. The CKD-EPI equation is less accurate in patients with extremes of muscle mass, extra-renal metabolism of creatinine, excessive creatine ingestion, or following therapy that affects renal tubular secretion.Performed By: #### EGFR1, ANION, HH, BMP #### [facility] JANZZ [address] [place] [address]ZHS,HCTon 15-79-6432Zxrxaevyoq (Bld) [Volume fraction]31.3 %Low 37.0-47.0[facility] DaughtersCityScanColumbia Regional Hospitalment on above:Performed at [facility] [employer] [address] [address]Mskmlliqu By: #### EGFR1, ANION, HH, BMP #### [facility] [address] [place] [address]Vlcmzdtkvs (Bld) [Mass/Vol]9.9 g/dLLow12.0-16.0[facility] VamosaSt. [facility] on above:Performed By: #### EGFR1, ANION, HH, BMP #### [facility] [address] [place] [address]Ccisszmqas and Hematocrit panel (Bld)on 74-46-0638Tvlynvvqfouokd and review of laboratory resultsAbnormalBon [facility] PeoriaNovaTract Surgical [facility] SystemEadBox [facility] CenterSupportSpace [facility] HospitalNo Panel Informationon 24-47-7661Pgr [facility] PeoriaCityScanEKG 12 Lead Ordered By: Lorie Arauz on 16-93-8526Rnuyva Lxaq74KMQZpx [facility] PeoriaCityScan Work Phone: p Sypp78iiypjhzAsu SecCityScan Work Phone: p-R Kzvgckna768 [facility] [place] Work Phone: q-T Wvlftutx337 [facility] [place] Work Phone: [phone] Heltycqf089 msBon [place] Work Phone: [phone] Calculation (Bazett)441 msBon [place] Work Phone: [phone] Ptri81hgycneyHfk [place] Work Phone: [phone] Fwlt04plzvodpVtt [place] Work Phone: [phone] Fiih14MEGToi [place] Work Phone: [phone] [place] Work Phone: [phone] 12 Leadon 34-09-7514Vteope sinus rhythm with sinus arrhythmia Incomplete right bundle branch block Borderline ECG No previous ECGs available Confirmed by LORIE ARAUZ ([id number]) on 12/03/2024 7:30:17 PMWCOH STR Lorie Marie MD - 12/03/2024 Normal sinus rhythm with sinus arrhythmia Incomplete right bundle branch block Borderline ECG No previous ECGs available Confirmed by LORIE ARAUZ ([id number]) on 12/03/2024 7:30:17 PM [facility] VamosaEKG 12-LEADon 78-40-7515QAF 12-LEAD77 77 136 110 390 441 66 30 58 Normal sinus rhythm with sinus arrhythmia Incomplete right bundle branch block Borderline ECG No previous ECGs available Confirmed by LORIE ARAUZ ([id number]) on 12/03/2024 7:30:17 PM [email or web address]&Date=&Time=13%3a15%3a27%3a00&TestType=ECG&Site=3&OutputType=PDF&Ext=PDFNormal [facility] StephenvilleEKG Rhythm Stripon bpmPACEARTYavapai Regional Medical Center Vamosa72PACEARTBon VamosaMR Brain WO and W contrast Elizabeth 37-93-5823Crarrjnxvxni brain MRI. This document has been electronically signed by: Hiren Welsh MD on 12/03/2024 06:24 AMWCOVIRGINIA [facility]ON [facility] Brain with and without gadolinium Comparison: None Findings: No restricted diffusion. No intra-axial mass or hemorrhage. No midline shift. No hydrocephalus. Vascular flow voids are intact. Post contrast infusion, no pathologic parenchymal or dural enhancement. No mass. The orbits are normal. The sinuses and mastoid air cells are clear. No focal bone lesion. [facility] Hiren Santizo MD - 12/03/2024 MR Brain with and without gadolinium Comparison: None Findings: No restricted diffusion. No intra-axial mass or hemorrhage. No midline shift. No hydrocephalus. Vascular flow voids are intact. Post contrast infusion, no pathologic parenchymal or dural enhancement. No mass. The orbits are normal. The sinuses and mastoid air cells are clear. No focal bone lesion. IMPRESSION: Unremarkable brain MRI. This document has been electronically signed by: Hiren Welsh MD on 12/03/2024 06:24 AM [facility] Brain WO and W contrast IVOrdered By: Hiren Welsh on [id number] Health Work Phone: Cervical spine WO and W contrast Elizabeth [phone] acute findings. This document has been electronically signed by: Hiren Welsh MD on 12/03/2024 06:45 AMWL[facility] cervical spine with and without gadolinium Comparison: None Findings: Craniocervical junction intact. Vertebral alignment within normal limits. No acute fractures or pathologic bone lesions. Soft tissues of the neck are normal. Cervical cord normal in signal and morphology. No pathologic cord enhancement post contrast infusion. No epidural collection to suggest hematoma or abscess. No appreciable degenerative change. Canal and foramina patent throughout the cervical spine. [facility] Hiren Santizo MD - 12/03/2024 MR cervical spine with and without gadolinium Comparison: None Findings: Craniocervical junction intact. Vertebral alignment within normal limits. No acute fractures or pathologic bone lesions. Soft tissues of the neck are normal. Cervical cord normal in signal and morphology. No pathologic cord enhancement post contrast infusion. No epidural collection to suggest hematoma or abscess. No appreciable degenerative change. Canal and foramina patent throughout the cervical spine. IMPRESSION: No acute findings. This document has been electronically signed by: Hiren Welsh MD on 12/03/2024 06:45 AM [facility] Lumbar spine WO and W contrast Elizabeth 12-03-2024-Postoperative changes at the L5-S1 level as described where patient had underwent posterior fusion several weeks ago and dural defect repair several hours prior to current exam. -No epidural hematoma or collection identified. -Fluid signal posterior paraspinal soft tissues commensurate with dural repair at L5-S1 performed several hours prior and not greater than expected given recency of surgery. -Apparent short segment nerve root clumping at the inferior L4 level which may reflect focal arachnoiditis (axial T2 images 21-22). Evaluation for enhancement at this level limited by susceptibility artifact which is exaggered on T1 post contrast images. This document has been electronically signed by: Hiren Welsh MD on 12/03/2024 06:59 AMWLOUR[facility] lumbar spine with and without gadolinium Comparison: None Findings: Normal alignment. No acute fracture or pathologic bone lesion. No changes of osteomyelitis or other marrow replacement process. Conus medullaris within normal limits. No cord or cauda equina compression. Apparent short segment nerve root clumping at the inferior L4 level which may reflect focal arachnoiditis (axial T2 images 21-22). Note evaluation for enhancement at this level limited by susceptibility artifact which is exaggered on T1 post contrast images. Following contrast infusion, no enhancing mass. No collection to suggest epidural abscess or hematoma. Paraspinous musculature intact. L1-L2: No disc degeneration. Canal and foramina patent. L2-L3: No disc degeneration. Canal and foramina patent. L3-L4: No disc degeneration. Canal and foramina patent. L4-L5. No disc degeneration. Canal and foramina patent. L5-S1: Posterior fusion surgical changes. Fluid signal posterior paraspinal soft tissues commensurate with dural repair at L5-S1 performed several hours prior and not greater than expected given recency of surgery. Several signal voids noted dorsally likely reflect foci of air introduced during instrumentation and also within expected limits in the post-operative state. No significant canal stenosis. Foramina evaluation limited at this level due to susceptibility artifact from spinal hardware. ÁNGELOH Hiren Santizo MD - 12/03/2024 MR lumbar spine with and without gadolinium Comparison: None Findings: Normal alignment. No acute fracture or pathologic bone lesion. No changes of osteomyelitis or other marrow replacement process. Conus medullaris within normal limits. No cord or cauda equina compression. Apparent short segment nerve root clumping at the inferior L4 level which may reflect focal arachnoiditis (axial T2 images 21-22). Note evaluation for enhancement at this level limited by susceptibility artifact which is exaggered on T1 post contrast images. Following contrast infusion, no enhancing mass. No collection to suggest epidural abscess or hematoma. Paraspinous musculature intact. L1-L2: No disc degeneration. Canal and foramina patent. L2-L3: No disc degeneration. Canal and foramina patent. L3-L4: No disc degeneration. Canal and foramina patent. L4-L5. No disc degeneration. Canal and foramina patent. L5-S1: Posterior fusion surgical changes. Fluid signal posterior paraspinal soft tissues commensurate with dural repair at L5-S1 performed several hours prior and not greater than expected given recency of surgery. Several signal voids noted dorsally likely reflect foci of air introduced during instrumentation and also within expected limits in the post-operative state. No significant canal stenosis. Foramina evaluation limited at this level due to susceptibility artifact from spinal hardware. IMPRESSION: -Postoperative changes at the L5-S1 level as described where patient had underwent posterior fusion several weeks ago and dural defect repair several hours prior to current exam. -No epidural hematoma or collection identified. -Fluid signal posterior paraspinal soft tissues commensurate with dural repair at L5-S1 performed several hours prior and not greater than expected given recency of surgery. -Apparent short segment nerve root clumping at the inferior L4 level which may reflect focal arachnoiditis (axial T2 images 21-22). Evaluation for enhancement at this level limited by susceptibility artifact which is exaggered on T1 post contrast images. This document has been electronically signed by: Hiren Welsh MD on 12/03/2024 06:59 AM [facility] Thoracic spine WO and W contrast Elizabeth [id number] acute findings. This document has been electronically signed by: Hiren Welsh MD on 12/03/2024 06:44 AM[facility] CONSOLIDATEDMR thoracic spine with and without gadolinium Comparison: None FINDINGS: Vertebral alignment is within normal limits. No acute fractures or pathologic bone lesions. Paraspinal soft tissues unremarkable. Thoracic cord normal in signal and morphology. No pathologic cord enhancement post contrast infusion. No epidural collection to suggest hematoma or abscess. No appreciable degenerative change. Canal and foramina patent throughout the cervical spine. [facility] Hiren Todd MD - 12/03/2024 MR thoracic spine with and without gadolinium Comparison: None FINDINGS: Vertebral alignment is within normal limits. No acute fractures or pathologic bone lesions. Paraspinal soft tissues unremarkable. Thoracic cord normal in signal and morphology. No pathologic cord enhancement post contrast infusion. No epidural collection to suggest hematoma or abscess. No appreciable degenerative change. Canal and foramina patent throughout the cervical spine. IMPRESSION: No acute findings. This document has been electronically signed by: Hiren Welsh MD on 12/03/2024 06:44 AM [facility]I BRAIN W WO CONTRASTon [id number] BRAIN W WO CONTRASTMR Brain with and without gadolinium Comparison: None Findings: No restricted diffusion. No intra-axial mass or hemorrhage. No midline shift. No hydrocephalus. Vascular flow voids are intact. Post contrast infusion, no pathologic parenchymal or dural enhancement. No mass. The orbits are normal. The sinuses and mastoid air cells are clear. No focal bone lesion. IMPRESSION: Unremarkable brain MRI. This document has been electronically signed by: Hiren Welsh MD on 12/03/2024 06:24 AM Interpreted by: Hiren Welsh MD Signed by: Hiren Welsh MD 12/03/24 Final resultNormalSMemorial Hermann Memorial City Medical CenterMRI CERVICAL SPINE W WO CONTRASTon 51-27-2611QEV CERVICAL SPINE W WO CONTRASTMR cervical spine with and without gadolinium Comparison: None Findings: Craniocervical junction intact. Vertebral alignment within normal limits. No acute fractures or pathologic bone lesions. Soft tissues of the neck are normal. Cervical cord normal in signal and morphology. No pathologic cord enhancement post contrast infusion. No epidural collection to suggest hematoma or abscess. No appreciable degenerative change. Canal and foramina patent throughout the cervical spine. IMPRESSION: No acute findings. This document has been electronically signed by: Hiren Welsh MD on 12/03/2024 06:45 AM Interpreted by: Hiren Welsh MD Signed by: Hiren Welsh MD 12/03/24 Final resultNormalSMemorial Hermann Memorial City Medical CenterMRI LUMBAR SPINE W WO CONTRASTon 53-43-9522WIQ LUMBAR SPINE W WO CONTRASTMR lumbar spine with and without gadolinium Comparison: None Findings: Normal alignment. No acute fracture or pathologic bone lesion. No changes of osteomyelitis or other marrow replacement process. Conus medullaris within normal limits. No cord or cauda equina compression. Apparent short segment nerve root clumping at the inferior L4 level which may reflect focal arachnoiditis (axial T2 images 21-22). Note evaluation for enhancement at this level limited by susceptibility artifact which is exaggered on T1 post contrast images. Following contrast infusion, no enhancing mass. No collection to suggest epidural abscess or hematoma. Paraspinous musculature intact. L1-L2: No disc degeneration. Canal and foramina patent. L2-L3: No disc degeneration. Canal and foramina patent. L3-L4: No disc degeneration. Canal and foramina patent. L4-L5. No disc degeneration. Canal and foramina patent. L5-S1: Posterior fusion surgical changes. Fluid signal posterior paraspinal soft tissues commensurate with dural repair at L5-S1 performed several hours prior and not greater than expected given recency of surgery. Several signal voids noted dorsally likely reflect foci of air introduced during instrumentation and also within expected limits in the post-operative state. No significant canal stenosis. Foramina evaluation limited at this level due to susceptibility artifact from spinal hardware. IMPRESSION: -Postoperative changes at the L5-S1 level as described where patient had underwent posterior fusion several weeks ago and dural defect repair several hours prior to current exam. -No epidural hematoma or collection identified. -Fluid signal posterior paraspinal soft tissues commensurate with dural repair at L5-S1 performed several hours prior and not greater than expected given recency of surgery. -Apparent short segment nerve root clumping at the inferior L4 level which may reflect focal arachnoiditis (axial T2 images 21-22). Evaluation for enhancement at this level limited by susceptibility artifact which is exaggered on T1 post contrast images. This document has been electronically signed by: Hiren Welsh MD on 12/03/2024 06:59 AM Interpreted by: Hiren Welsh MD Signed by: Hiren Welsh MD 12/03/24 Final resultNormalSMemorial Hermann Memorial City Medical CenterMRI THORACIC SPINE W WO CONTRASTon 15-21-5701IGN THORACIC SPINE W WO CONTRASTMR thoracic spine with and without gadolinium Comparison: None FINDINGS: Vertebral alignment is within normal limits. No acute fractures or pathologic bone lesions. Paraspinal soft tissues unremarkable. Thoracic cord normal in signal and morphology. No pathologic cord enhancement post contrast infusion. No epidural collection to suggest hematoma or abscess. No appreciable degenerative change. Canal and foramina patent throughout the cervical spine. IMPRESSION: No acute findings. This document has been electronically signed by: Hiren Welsh MD on 12/03/2024 06:44 AM Interpreted by: Hiren Welsh MD Signed by: Hiren Welsh MD 12/03/24 Final resultNormalSaint Teton Valley HospitalNo Panel Informationon 12-03-2024 Radiology Study observation (narrative)[facility] THORACIC SPINE WO CONTon 19-31-6947TT THORACIC SPINE WO CONTMR THORACIC SPINE WO CONT CLINICAL INFORMATION: Atrophy of muscle of right thigh; Trouble walking TECHNIQUE: MR THORACIC SPINE WO CONT Multisequence multiplanar imaging of the thoracic spine was obtained utilizing the routine thoracicprotocol. Inversion recovery images show normal bone marrow [...] by Han Johnson MD on 07/05/2024 11:07 AMNormalMercy Health Anderson HospitalCREATININEon 85-74-2562Tsphkmytsl [Mass/Vol]0.72 mg/dLNormal0.40-1.00 [facility] HospitalComment on above:Result Comment: METHOD TRACEABLE TO IDNC STANDARDPerformed By: #### SHAYNA, PLTCT, LEADERSHIP RECRUITER #### [facility] ([id number]) [address] [facility] [facility], [address] [address]gAXH (CKD-EPI) NON-RACE DEPENDENT>90Normal>59ProMarion HospitalComment on above:Result Comment: Reported eGFR is based on the CKD-EPI 2020 equation that does not use a race coefficient.Performed By: #### SHAYNA PLTCT, LEADERSHIP RECRUITER #### [facility] ([id number]) [address] [facility], [address] [place] [address]Rnsonkcbup includes GFR, serumon 04-10-8817Rmzlqgefcs [Mass/Vol] 0.72 mg/dL0.40 - 1.00 mg/dLSelect Medical TriHealth Rehabilitation HospitalComment on above:METHOD TRACEABLE TO IDMS STANDARDeGFR (CKD-EPI)non-race dependent- [facility] CenterComment on above: Reported eGFR is based on the CKD-EPI 2020 equation that does not use a race coefficient. [facility] Rehabilitation HospitalHGB AND HCTon 86-50-7191Oawbbmbwks (Bld) [Volume fraction]33.3 %Ckz75-44CagQbvoibGalion Community HospitalComment on above:Performed By: #### SHAYNA PLTCT, LEADERSHIP RECRUITER #### [facility] ([id number]) [address] [facility] [facility], [address] [place] [address]Axxwuermcz (Bld) [Mass/Vol]11.3 g/dLLow11.7-15.5PCleveland Clinic [facility] HospitalComment on above:Performed By: #### SHAYNA, PLTCT, LEADERSHIP RECRUITER #### [facility] ([id number]) [address] [facility] [facility], [address] [place], [place] [address]Lnkaupdiki and hematocrit, bloodon 95-48-9564Ofzsvfwmjm (Bld) [Volume fraction]33.3 %Low35 - 47 %[facility] Tri[facility] Rehabilitation HospitalHemoglobin (Bld) [Mass/Vol]11.3 g/dLLow11.7 - 15.5 g/dLSelect Medical TriHealth Rehabilitation HospitalInterpretation and review of laboratory resultsAbnoAtrium Health [facility] LUMBAR SPINE WO CONTon 72-06-2297DC LUMBAR SPINE WO CONTMR LUMBAR SPINE WO CONT LUMBAR SPINE MRI [...] within normal limits. Degenerative changes sacroiliac joints. Smallvolume pelvic free fluid. Impression: 1. Subtle grade 1 anterolisthesis L5 on S1, posterior wedging morphology of L5. Nonacute L5 pars defects. 2. No high-grade thecal sac or neural frontal stenosis. Finalized by Suhas Kelly MD on 06/22/2024 7:18 AMNormalFort Hamilton Hospital Lumbar spine WO contraston 65-16-4919XLASQC SPINE MRI WITHOUT CONTRAST History: Back pain [...] within normal limits. Degenerative changes sacroiliac joints. Smallvolume pelvic free fluid. Impression: 1. Subtle grade 1 anterolisthesis L5 on S1, posterior wedging morphology of L5. Nonacute L5 pars defects. 2. No high-grade thecal sac or neural frontal stenosis. Finalized by Suhas Kelly MD on 06/22/2024 7:18 AMSECTRASuhas Gardner MD - 06/22/2024 LUMBAR SPINE MRI WITHOUT [...] within normal limits. Degenerative changes sacroiliac joints. Smallvolume pelvic free fluid. Impression: 1. Subtle grade 1 anterolisthesis L5 on S1, posterior wedging morphology of L5. Nonacute L5 pars defects. 2. No high-grade thecal sac or neural frontal stenosis. Finalized by Suhas Kelly MD on 06/22/2024 7:18 AM [facility] RehabilitationSpotplex [facility] Zeeland HospitalRadiology Study observation (narrative)[employer] SolutionsMR Lumbar spine WO contrastOrdered By: Suhas Kelly on 06-22-2024 [facility] HospitalWatchfinder Work Phone: no Panel Informationon 22-57-6583PqaWvvbneKindred HealthcarePLATELET COUNT AND MPVon 96-61-9925Jfedrkxi mean volume (Bld) [Entitic vol]11.3 fLNormal7-12PSelect Medical Cleveland Clinic Rehabilitation Hospital, AvonComment on above:Performed By: #### SHAYNA PLTCT, LEADERSHIP RECRUITER #### [facility] ([id number]) [address], [address] [place], [place] [address]Vqhadvsrc (Bld) [#/Vol]180 10*3/kBRamvux164-962ZsaNarple [facility] Medical CenterComment on above:Performed By: #### SHAYNA PLTCT, LEADERSHIP RECRUITER #### [facility] ([id number]) [address], [address] [place], [place] [address]Izdgsnuv counton 23-02-2348Cyxoahdb mean volume (Bld) [Entitic vol]11.3 fL7 - 12 [facility] Blue SpringsPlatelets (Bld) [#/Vol]180 10*3/uL [facility] [employer] [facility] Zeeland HospitalCT HIP RT WO CONTon 07-80-7394XG HIP RT WO CONTCT HIP RT WO CONT History: Right hip [...] are identified. The remainder the visualized osseous structuresare intact. No soft tissue abnormalities are identified. IMPRESSION: Normal CT right hip Finalized by Marcell Ralph MD on 06/21/2024 9:59 PMNMarymount HospitalCT LUMBAR SPINE WO CONTon 03-35-9516DE LUMBAR SPINE WO CONTCT LUMBAR SPINE WO CONT HISTORY: A 34-year-old [...] through the lumbar vertebrae. The posterior elements areintact. Sagittal and coronal images demonstrate normal vertebral heights. There is no evidence of compression fractures or acute bony pathology. Facet joints are intact. Both sacroiliac joints are intact. Intervertebral disc spaces are intact. There is a broad-based disc bulging at L5-S1. No evidence ofdisc herniation, spinal stenosis or narrowing of the [...] Marco A Burleson MD on 06/21/2024 10:04 PMNMarymount HospitalXR HIP RT 2-3 VIEWS W OR WO PELVISon 11-26-2550TU HIP RT 2-3 VIEWS W OR WO PELVISXR HIP RT 2-3 VIEWS W OR WO PELVIS HISTORY: Right hip pain COMPARISON: None FINDINGS: AP pelvis and AP and frog-leg views of the right hip were obtained. Osseous structures are intact. Normal alignment. No significant degenerative change. No focal soft tissue abnormality. IMPRESSION: * No acute abnormality. Finalized by Yonatan Solorzano MD on 06/18/2024 4:37 AMNMarymount HospitalXR SPINE LUMBAR 2 OR 3 VWSon 20-49-2096TP SPINE LUMBAR 2 OR 3 VWSXR SPINE LUMBAR 2 OR 3 VWS HISTORY: Back pain, right lower extremity paresthesias COMPARISON: CT abdomen and pelvis 04/12/2024 FINDINGS: Multiple views of the lumbar spine were obtained. Vertebral body height and alignment is maintained. Loss of normal lordosis is likely positional but can also be seen with muscle spasm. Bilateral L5 pars defects. Otherwise posterior elements are intact. No significant degenerative change.No bony destructive process. No focal soft tissue abnormality. IMPRESSION: * No acute osseous abnormality. Finalized by Yonatan Solorzano MD on 06/18/2024 4:37 AMNormalMercy Health Anderson HospitalGI PANELon 13-61-7937Rgqbqdhsnpmpguba pathogens DNA and RNA panel ASHUTOSH+non-probe (Stl)SPECIMEN SOURCE STOOL CAMPYLOBACTER Not detected (qualifier value) [...] detected (qualifier value) SAPOVIRUS Not detected (qualifier value)NormalNDETProThe University Of Texas M.D. Anderson Cancer CenterComment on above:Performed By: #### CBCA, CMP, 3040-3 #### [facility] ([id number]) [address] [place] [address]VDP AND AUTO DIFFon 08-82-1151YHDPFJJJ BASOPHIL0.0 X10E9/L Normal0.0-0.2ProMedica Chapman Medical CenterComment on above:Performed By: #### CBCA, CMP, 3040-3 #### [facility] ([id number]) [address] [place] [address] 29198NRVFIHZR NEUTROPHIL9.5 X10E9/LHigh1.5-6.6Mercy Health Anderson HospitalComment on above:Performed By: #### CANDACE GUPTA, 3039-3 #### [facility] ([id number]) [address] [place] [address] 50359Vecwfquzl/100 WBC (Bld)0.2 %[facility] Comment on above:Performed By: #### CANDACE GUPTA, 3039- #### [facility] ([id number]) [address] [place] [address] 77357Dgwffxtqwdw (Bld) [#/Vol]0.0 10*3/uLNormal0.0-0.4ProThe University Of Texas M.D. Anderson Cancer CenterComment on above:Performed By: #### CANDACE GUPTA, 3 #### [facility] ([id number]) [address] [place] [address] 87356Bxbtvghkruz/100 WBC (Bld)0.3 %NormalMercy Health Anderson Hospital Comment on above:Performed By: #### CANDACE GUPTA, 3 #### [facility] ([id number]) [address] [place] [address] 28631Qezlbadiypp distribution width (RBC) [Ratio]15.3 %High11.5-15.0 [facility] Anderson HospitalComment on above:Performed By: #### CANDACE GUPTA, 3039-3 #### [facility] ([id number]) [address] [place] [address] 13473Ykxkugyypx (Bld) [Volume fraction]38.5 %Uyamsq68-90XygJtigdjMercy Health Anderson HospitalComment on above:Performed By: #### CANDACE GUPTA, 3039-3 #### [facility] ([id number]) [address] [place] [address] 64097Jmfqocsghi (Bld) [Mass/Vol]12.8 g/cRWbtysj32.7-15.5PKettering HealthComment on above:Performed By: #### CBCA, CMP, 3040-3 #### [facility] ([id number]) [address] [place] [address] 10959Mdsarydatul (Bld) [#/Vol]1.1 10*3/uLNormal1.0-3.5PKettering HealthComment on above:Performed By: #### CBCA, CMP, 3039-3 #### [facility] ([id number]) [address] [place] [address] 02784Vseiyloiylg/100 WBC (Bld)9.9 %NormalMercy Health Anderson Hospital Comment on above:Performed By: #### CBCA, CMP, 3039-3 #### [facility] ([id number]) [address] [place] [address] 94327WLB (RBC) [Entitic mass]27.7 mrQsuraq41-21ZtzSyokpaThe University Of Texas M.D. Anderson Cancer CenterComment on above:Performed By: #### CBCA, CMP, 3039-3 #### [facility] ([id number]) [address] [place] [address] 96115CYKW (RBC) [Mass/Vol]33.2 g/jXJsumih71-09HrqJxhncgThe University Of Texas M.D. Anderson Cancer CenterComment on above:Performed By: #### CBCA, CMP, 0-3 #### [facility] ([id number]) [address] [place] [address] 85805SEW (RBC) [Entitic vol]84 vQQnqgpn02-930GvnOkwsdv [facility] HospitalComment on above:Performed By: #### CBCA, CMP, 3040-3 #### [facility] ([id number]) [address]LO[address] [place], [place] [address]Alxkujsde (Bld) [#/Vol]0.7 10*3/uLNormal0-0.9Mercy Health Anderson HospitalComment on above:Performed By: #### CANDACE GUPTA, 3040-3 #### [facility] ([id number]) [address] [place] [address] 91946Rqqupnpaf/100 WBC (Bld)6.2 %NormalMercy Health Anderson Hospital Comment on above:Performed By: #### CBCDaysi CMP, 3039-3 #### [facility] ([id number]) [address] [place] [address] 58336Jayejbannzh/100 WBC (Bld)83.4 %[facility] Comment on above:Performed By: #### CANDACE GUPTA, 3039-3 #### [facility] ([id number]) [address] [place] [address], [place] [address]Jcevvoie mean volume (Bld) [Entitic vol]9.7 fLNormal7-12 [facility] HospitalComment on above:Performed By: #### CANDACE GUPTA, 3039-3 #### [facility] ([id number]) [address] [place] [address], [place] [address]Tcakrryfl (Bld) [#/Vol]177 10*3/zJLsciwr875-897CiyKfhrft [facility]remont HospitalComment on above:Performed By: #### CANDACE GUPTA, 3039-3 #### [facility] ([id number]) [address] [place] [address], [place] [address]FDB COUNT4.62 X10E12/LNormal3.80-5.20[facility] Comment on above:Performed By: #### ALONSO CMP, 3039-3 #### [facility] ([id number]) [address] [place] [address], [place] [address]JYT (Bld) [#/Vol]11.3 10*3/uLHigh4.0-11.0[facility] HospitalComment on above:Performed By: #### CANDACE GUPTA, 3040-3 #### [facility] ([id number]) [address] [place] [address] 75356MNFEYIHMPIJLB METABOLIC PANELon 99-44-7750Qrxobrz [Mass/Vol]4.8 g/dLNormal3.2-5.3PKettering HealthComment on above:Performed By: #### CANDACE GUPTA, 0-3 #### [facility] ([id number]) [address] [place] [address] 33923XAJ [Catalytic activity/Vol]51 U/XTnlbel78-957LhyCoconjMercy Health Anderson HospitalComment on above:Performed By: #### CANDACE GUPTA, 3039-3 #### [facility] ([id number]) [address] [place] [address] 06416MAD [Catalytic activity/Vol]14 U/LNormal0-31PKettering HealthComment on above:Performed By: #### CANDACE GUPTA, 0-3 #### [facility] ([id number]) [address] [place] [address] 76045Jeovf gap [Moles/Vol]7 mmol/LNormal5-15[facility] HospitalComment on above:Performed By: #### CANDACE GUPTA, 0-3 #### [facility] ([id number]) [address] [place] [address] 09408FKB [Catalytic activity/Vol]21 U/LNormal0-41ProThe University Of Texas M.D. Anderson Cancer CenterComment on above:Performed By: #### CANDACE GUPTA, 0-3 #### [facility] ([id number]) [address] [place] [address] 85231Dvqhasvoo [Mass/Vol]0.4 mg/dLNormal0.3-1.2PKettering HealthComment on above:Performed By: #### CANDACE GUPTA, 3040-3 #### [facility] ([id number]) [address] [place] [address], [place] [address]Iobxbpd [Mass/Vol]9.0 mg/dLNormal8.5-10.5PKettering HealthComment on above:Performed By: #### CANDACE GUPTA, 3039-3 #### [facility] ([id number]) [address] [place] [address], [place] [address]Ylkwmkvv [Moles/Vol]103 mmol/HFwvcls33-391BpcQpqbcbThe University Of Texas M.D. Anderson Cancer CenterComment on above:Performed By: #### CANDACE GUPTA, 3039-3 #### [facility] ([id number]) [address] [place] [address] 36855DJ0 [Moles/Vol]24 mmol/ATmgotk30-04CqzHhskmaKettering Health Comment on above:Performed By: #### CANDACE GUPTA, 3039-3 #### [facility] ([id number]) [address] [place] [address] 69058Xwtguazrug [Mass/Vol]0.79 mg/dLNormal0.40-1.00[facility] Anderson HospitalComment on above:Result Comment: METHOD TRACEABLE TO IDMS STANDARD Performed By: #### CANDACE GUPTA, 0-3 #### [facility] ([id number]) [address] [place] [address] 57156mBXF (CKD-EPI) NON-RACE DEPENDENT>90Normal>59ProThe University Of Texas M.D. Anderson Cancer CenterComment on above:Result Comment: Reported eGFR is based on the CKD-EPI 2021 equation that does not use a race coefficient.Performed By: #### CANDACE GUPTA, 3040-3 #### [facility] ([id number]) [address] [place] [address] 72517Ssfeytx [Mass/Vol]108 mg/rRWnbb07-78RzpTeobomThe University Of [facility]. [facility] Center Comment on above:Performed By: #### CANDACE GUPTA, 3040-3 #### [facility] ([id number]) [address] [place] [address] 83904Ktrtumois [Moles/Vol]4.0 mmol/LNormal3.5-5.0ProThe University Of [facility] M.D. Anderson Cancer CenterComment on above:Performed By: #### CANDACE GUPTA, 3040-3 #### [facility] ([id number]) [address] [place] [address] 15252Sfqlqlb [Mass/Vol]7.4 g/dLNormal6.0-8.0ProThe University Of [facility] M.D. Anderson Cancer CenterComment on above:Performed By: #### CANDACE GUPTA, 3040-3 #### [facility] ([id number]) [address] [place] [address] 46042Slwjpc [Moles/Vol]134 mmol/PBonezr922-293EckEguvzf [facility]remont HospitalComment on above:Performed By: #### CANDACE GUPTA, 3040-3 #### [facility] ([id number]) [address] [place] [address] 95270Oqtm nitrogen [Mass/Vol]13 mg/dLNormal5-23ProThe University Of [facility] M.D. Anderson Cancer CenterComment on above:Performed By: #### CANDACE GUPTA, 3040-3 #### [facility] ([id number]) [address] [place] [address] 70821PA ABDOMEN AND PELVIS W CONTon 69-99-1864QL ABDOMEN AND PELVIS W CONTCT ABDOMEN AND PELVIS W CONT History: Abdominal [...] Oral contrast has progressed to the ascending colon.Minimal free fluid low pelvis. No enlarged nodes. No osseous destructive lesions. IMPRESSION: Colitis involving the cecum. Minimal free fluid. No evidence for abscess, perforation or obstruction. The liver lesions identified. Finalized by Koko Reyez MD on 04/12/2024 2:35 PMNormalMercy Health Anderson HospitalHCG ( test) Ql (U)on 86-44-7404Hqam HCG ( test) Ql (U) NegativeNormalNEGMercy Health Anderson HospitalComment on above:Performed By: #### 2106-3 #### [facility] ([id number]) [address] [place] [address] 60598VFSFQVhn 91-34-3769Kqroul [Catalytic activity/Vol]34 U/LNormal 17-40[facility] HospitalComment on above:Performed By: #### CBCA, CMP, 3040-3 #### [facility] ([id number]) [address] [place] [address] 49401INE MACROSCOPIC NURon 51-10-7337NITTFJYSU NURNegativeNormalNEG ProMevergreen medical centera Chapman Medical CenterComment on above:Performed By: #### NUM #### [facility] ([id number]) [address] [place] [address] 52511ROYUD/HGB NURMODERATEAbnormalNEGMercy Health Anderson Hospital Comment on above:Performed By: #### NUM #### [facility] ([id number]) [address] [place] [address] 97611NRADTAN NURNegativeNormalNEGMercy Health Anderson HospitalComment on above:Performed By: #### NUM #### [facility] ([id number]) [address] [place] [address] [place] 04865RKAQBOK NURNegativeNormalNEGProThe University Of Texas M.D. Anderson Cancer CenterComment on above:Performed By: #### NUM #### [facility] ([id number]) [address] [place] [address] [place] 07713FHVHIGWMR ESTERASE NURNegativeNormalNEGProThe University Of [facility] M.D. Anderson Cancer CenterComment on above:Performed By: #### NUM #### [facility] ([id number]) [address] [place] [address] [place] 18726YXIGPDR NURNegativeNormalNEGProThe University Of [facility] M.D. Anderson Cancer CenterComment on above:Performed By: #### NUM #### [facility] ([id number]) [address] [place] [address] 51614VY NUR5.7Blxhsn7.0-8.5PKettering HealthComment on above:Performed By: #### NUM #### [facility] ([id number]) [address] [place] [address] 03970YPAKNTZ NURNegativeNormalNEGProThe University Of [facility] M.[facility]. Anderson Cancer CenterComment on above:Performed By: #### NUM #### [facility] ([id number]) [address] [place] [address] [place] 88070BSJDNTOU GRAVITY NUR1.891Hvimyn6.003-1.035ProThe University Of [facility] M.D. Anderson Cancer CenterComment on above:Performed By: #### NUM #### [facility] ([id number]) [address] [place] [address], [place] 17238GJZACOPDOFTC NUR0.2 eu/dLNormal<1.1PKettering Health Comment on above:Performed By: #### NUM #### [facility] ([id number]) [address] [place] [address] [place] 87[address]SSO AND AUTO DIFFon 64-64-1340BNIFYHTU BASOPHIL0.0 X10E9/L Normal0.0-0.2PKettering HealthComment on above:Performed By: #### CANDACE GUPTA, 3039-3 #### [facility] ([id number]) [address] [place] [address] 75513XXTRQAEH NEUTROPHIL4.3 X10E9/LNormal1.5-6.6[facility] HospitalComment on above:Performed By: #### CANDACE GUPTA, 3039-3 #### [facility] ([id number]) [address] [place] [address] 51526Krhjhyzej/100 WBC (Bld)0.7 %[facility] Comment on above:Performed By: #### CANDACE GUPTA, 3 #### [facility] ([id number]) [address] [place] [address] 15396Mvdsxfjmtrs (Bld) [#/Vol]0.1 10*3/uLNormal0.0-0.4ProThe University Of [facility] M.D. Anderson Cancer CenterComment on above:Performed By: #### CANDACE GUPTA, 3039-3 #### [facility] ([id number]) [address] [place] [address] 96855Dvhyetsulfi/100 WBC (Bld)1.3 %NormalMercy Health Anderson Hospital Comment on above:Performed By: #### CANDACE GUPTA, 3039-3 #### [facility] ([id number]) [address] [place] [address] 33144Srbfwgnuxrs distribution width (RBC) [Ratio]14.1 %Normal 11.5-15.0[facility] Anderson HospitalComment on above:Performed By: #### CANDACE GUPTA, 3039-3 #### [facility] ([id number]) [address] [place] [address] 66725Uddacpwzbi (Bld) [Volume fraction]35.1 %Jykeaw26-15ElrYeyzglThe University Of Texas M.D. Anderson Cancer CenterComment on above:Performed By: #### CBCA, CMP, 3040-3 #### [facility] ([id number]) [address] [place] [address] 12037Ecwfnsshew (Bld) [Mass/Vol]12.4 g/oHDyahqx83.7-15.5PKettering HealthComment on above:Performed By: #### CBCDaysi, CMP, 0-3 #### [facility] ([id number]) [address] [place] [address] 16300Rkcyfmywfdz (Bld) [#/Vol]1.1 10*3/uLNormal1.0-3.5PKettering HealthComment on above:Performed By: #### CBCDaysi, CMP, 3039-3 #### [facility] ([id number]) [address] [place] [address] 51958Hiwvoaroksm/100 WBC (Bld)18.5 %NormalProThe [facility] Of [facility] Center Comment on above:Performed By: #### CBCDaysi, CMP, 3039-3 #### [facility] ([id number]) [address] [place] [address] 91037VAZ (RBC) [Entitic mass]29.7 fsCzmgvg66-97XhrEcwyaqThe University Of [facility] M.D. Anderson Cancer CenterComment on above:Performed By: #### ALONSO CMP, 0-3 #### [facility] ([id number]) [address] [place] [address] 28879NQEA (RBC) [Mass/Vol]35.3 g/sRFrhfkh27-81VbjSmredqThe University Of Texas M.D. Anderson Cancer CenterComment on above:Performed By: #### CBCA, CMP, 0-3 #### [facility] ([id number]) [address] [place] [address] 05470SAR (RBC) [Entitic vol]84 zKBwxqni79-468QvkSplzyb [facility]ont HospitalComment on above:Performed By: #### CBCA, CMP, 0-3 #### [facility] ([id number]) [address] [place] [address] 00515Fmcekddka (Bld) [#/Vol]0.6 10*3/uLNormal0-0.9[facility] HospitalComment on above:Performed By: #### CBCDaysi, CMP, 3039-3 #### [facility] ([id number]) [address] [place] [address] 85467Ozjivlykw/100 WBC (Bld)10.3 %[facility] Comment on above:Performed By: #### CBCDaysi, CMP, 3039-3 #### [facility] ([id number]) [address] [place] [address] 73638Mncyxetclve/100 WBC (Bld)69.2 %[facility] Comment on above:Performed By: #### CBCDaysi, CMP, 3039-3 #### [facility] ([id number]) [address] [place] [address] 76184Ponbjmpr mean volume (Bld) [Entitic vol]9.8 fLNormal7-12 [facility] HospitalComment on above:Performed By: #### ALONSO, CMP, 3039-3 #### [facility] ([id number]) [address] [place] [address] 54410Nbyktbwub (Bld) [#/Vol]160 10*3/lZYjsanf151-904WriJzsqhfMercy Health Anderson HospitalComment on above:Performed By: #### CBCA, CMP, 0-3 #### [facility] ([id number]) [address] [place] [address] 54977APP COUNT4.17 X10E12/LNormal3.80-5.20[facility] Comment on above:Performed By: #### CBCA, CMP, 0-3 #### [facility] ([id number]) [address] [place] [address] 05367ZJZ (Bld) [#/Vol]6.2 10*3/uLNormal4.0-11.0ProThe University Of [facility] M.D. Anderson Cancer CenterComment on above:Performed By: #### CANDACE GUPTA, 3040-3 #### [facility] ([id number]) [address] [place] [address] 35426YOSBEPPYFPSUX METABOLIC PANELon 98-06-4630Ebscatc [Mass/Vol]4.2 g/dLNormal3.2-5.3ProMedBellflower Medical CenterComment on above:Performed By: #### CANDACE GUPTA, 0-3 #### [facility] ([id number]) [address] [place] [address] 79985HRP [Catalytic activity/Vol]50 U/BMjtmgm43-613XepLoefxiThe University Of Texas M.D. Anderson Cancer CenterComment on above:Performed By: #### CANDACE GUPTA, 0-3 #### [facility] ([id number]) [address] [place] [address] 41053WWY [Catalytic activity/Vol]18 U/LNormal0-31PKettering HealthComment on above:Performed By: #### CANDACE GUPTA, 3040-3 #### [facility] ([id number]) [address] [place] [address] 55573Pvkxg gap [Moles/Vol]5 mmol/LNormal5-15ProThe University Of [facility] M.D. Anderson Cancer CenterComment on above:Performed By: #### CANDACE GUPTA, 3040-3 #### [facility] ([id number]) [address] [place] [address] 91522DIL [Catalytic activity/Vol]20 U/LNormal0-41ProThe University Of [facility] M.D. Anderson Cancer CenterComment on above:Performed By: #### CANDACE GUPTA, 0-3 #### [facility] ([id number]) [address] [place] [address], [place] [address]Fbjxaxwif [Mass/Vol]0.2 mg/dLLow0.3-1.2PKettering HealthComment on above:Performed By: #### CANDACE GUPTA, 3040-3 #### [facility] ([id number]) [address] [place] [address], [place] [address]Orbkmft [Mass/Vol]8.8 mg/dLNormal8.5-10.5PKettering HealthComment on above:Performed By: #### CANDACE GUPTA, 3039-3 #### [facility] ([id number]) [address] [place] [address], [place] 30852Ezsohesy [Moles/Vol]104 mmol/GDeflnd76-165CdtAiznxxThe University Of [facility] M.D. Anderson Cancer CenterComment on above:Performed By: #### CANDACE GUPTA, 3039-3 #### [facility] ([id number]) [address] [place] [address], [place] [address]ZI0 [Moles/Vol]25 mmol/EMsecvu33-93OleElbwfoKettering Health Comment on above:Performed By: #### CANDACE GUPTA, 3039-3 #### [facility] ([id number]) [address] [place] [address] 75329Hdghbhgmhc [Mass/Vol]0.63 mg/dLNormal0.40-1.00ProThe University Of [facility] M.D. Anderson Cancer CenterComment on above:Result Comment: METHOD TRACEABLE TO IDMS STANDARD Performed By: #### CANDACE GUPTA, 0-3 #### [facility] ([id number]) [address] [place] [address] 88321rLNE (CKD-EPI) NON-RACE DEPENDENT>90Normal>59ProThe University Of Texas M.D. Anderson Cancer CenterComment on above:Result Comment: Reported eGFR is based on the CKD-EPI 2020 equation that does not use a race coefficient.Performed By: #### CANDACE GUPTA, 0-3 #### [facility] ([id number]) [address] [place] [address], [place] 75[address]Unankcx [Mass/Vol]116 mg/mXBvjr94-36WlxUriyijThe University Of [facility] Comment on above:Performed By: #### CANDACE GUPTA, 0-3 #### [facility] ([id number]) [address] [place] [address], [place] [address]Bwtegsdfc [Moles/Vol]3.8 mmol/LNormal3.5-5.0ProThe University Of [facility] M.D. Anderson Cancer CenterComment on above:Performed By: #### CANDACE GUPTA, 3039-3 #### [facility] ([id number]) [address] [place] [address], [place] 748[address]Hnmqhcv [Mass/Vol]6.7 g/dLNormal6.0-8.0ProThe University Of [facility] M.D. Anderson Cancer CenterComment on above:Performed By: #### CANDACE GUPTA, 3039-3 #### [facility] ([id number]) [address] [place] [address], [place] [address]35[address]Sdifmd [Moles/Vol]134 mmol/WFpilby331-740SgdYsvzph [facility]remont HospitalComment on above:Performed By: #### CANDACE GUPTA, 0-3 #### [facility] ([id number]) [address] [place] [address], [place] 207[address]Ycpu nitrogen [Mass/Vol]10 mg/dLNormal5-23ProThe University Of [facility] M.D. Anderson Cancer CenterComment on above:Performed By: #### CANDACE GUPTA, 3039-3 #### [facility] ([id number]) [address] [place] [address], [place] 400[address]POA ( test) Ql (U)on 04-83-6957Ngyp HCG ( test) Ql (U)NegativeNormalNEGProThe University Of [facility] M.D. Anderson Cancer CenterComment on above: Performed By: #### 2106-3 #### [facility] ([id number]) [address] [place] [address], [place] 26[address]FCIEBKdl 68-04-7638Nhmlsn [Catalytic activity/Vol]49 U/LHigh 17-40ProThe University Of [facility] M.D. Anderson Cancer CenterComment on above:Performed By: #### ALONSO, [facility], 3040-3 #### [facility] ([id number]) [address] [place] [address] 19230IQJ MACROSCOPIC NURon 19-28-1520QNVBNVIRC NURNegativeNormalNEG ProMevergreen medical centera Chapman Medical CenterComment on above:Performed By: #### NUM #### [facility] ([id number]) [address] [place] [address] 36238XRZWZ/HGB NURNegativeNormalNEGMercy Health Anderson HospitalComment on above:Performed By: #### NUM #### [facility] ([id number]) [address] [place] [address] [place] 63180FRMRSDP NURNegativeNormalNEGProThe University Of [facility] M.D. Anderson Cancer CenterComment on above:Performed By: #### NUM #### [facility] ([id number]) [address] [place] [address] 70716LRDYDIL NURNegativeNormalNEGProThe University Of [facility]. Anderson Cancer CenterCommclaren caro region on above:Performed By: #### NUM #### [facility] ([id number]) [address] [place] [address] [place] 25701ZECTTGROR ESTERASE NURNegativeNormalNEGProThe University Of [facility]. Anderson Cancer CenterCommclaren caro region on above:Performed By: #### NUM #### [facility] ([id number]) [address] [place] [address] 63456ILICSBT NURNegativeNormalNEGProThe University Of [facility] M.D. Anderson Cancer CenterCommclaren caro region on above:Performed By: #### NUM #### [facility] ([id number]) [address] [place] [address] [place] 21936KR NUR7.0Lvnahs7.0-8.5PKettering HealthComment on above:Performed By: #### NUM #### [facility] ([id number]) [address] [place] [address] 36527YCOGMYB NURNegativeNormalNEGProThe University Of [facility] M.D. Anderson Cancer CenterComment on above:Performed By: #### NUM #### [facility] ([id number]) [address] [place] [address] 38313BUZYKBKB GRAVITY NUR1.166Ourqix5.003-1.035ProThe University Of [facility] M.D. Anderson Cancer CenterComment on above:Performed By: #### NUM #### [facility] ([id number]) [address] [place] [address] 39340TVUMVVXSPYSC NUR0.2 eu/dLNormal<1.1PKettering Health Comment on above:Performed By: #### NUM #### [facility] ([id number]) [address] [place] [address] 26358E PYLORI ANTIBODY IGGon 07-22-2022H. PYLORI IGG ABS0.46 Index ValueNormal0.00-0.79The Marymount HospitalComment on above:Result Comment: Negative <0.80 Equivocal 0.80 - 0.89 Positive >0.89Performed By: #### HPYLLC #### [facility] [address] [place] [address] Dr. Donna CornejoAMYLASEon 56-61-6588Zupejdd [Catalytic activity/Vol]83 U/LNormal 25-115The [facility] HospitalComment on above:Performed By: #### JOSE ROBERTO, CMP, LIPA, LIPID, T7, TSH #### [facility] [address] [place] [address] Dr. Donna Del Valle AUTO DIFFon 82-63-4983SAEE #0.0 103/ulNormal0.0-0.1The Marymount HospitalComment on above:Performed By: #### CBC #### [facility] [address] [place] [address] Dr. Donna CornejoBasophils/100 WBC (Bld)0.5 %Normal0.2-2.0[facility] Comment on above:Performed By: #### CBC #### [facility] [address] [address] [address] Donna Blackburn #0.1 103/ulNormal0.0-0.7The Marymount HospitalComment on above: Performed By: #### CBC #### [facility] [address] [address] [address] Donna Arnettosinophils/100 WBC (Bld)1.7 %Normal0.9-7.0[facility] Comment on above:Performed By: #### CBC #### [facility] [address] [place] [address] Dr. Donna Arnettrythrocyte distribution width (RBC) [Ratio]13.4 %Bdpzro10.0-15.0 The [facility]mount HospitalComment on above:Performed By: #### CBC #### [facility] [address] [place] [address] Dr. Donna CornejoHematocrit (Bld) [Volume fraction]37.4 %Rozhzf92.0-48.0The [facility] HospitalComment on above:Performed By: #### CBC #### [facility] [address] [place] [address] Dr. Donna CornejoHemoglobin (Bld) [Mass/Vol]13.1 g/vESdgdqb99.0-16.0The [facility] HospitalComment on above:Performed By: #### CBC #### [facility] [address] [place] [address] Dr. Donna Gomez #0.01 10e3/ulNormal0.00-0.03The [facility] HospitalComment on above:Performed By: #### CBC #### [facility] [address] [place] [address] Dr. Donna Gomez %0.2 %Normal0.0-0.5The [facility] HospitalComment on above: Performed By: #### CBC #### [facility] [address] [address] [address] Donna Covington #2.5 103/ulNormal1.2-3.8The [facility] HospitalComment on above:Performed By: #### CBC #### [facility] [address] [address] [address] Donna Correamphocytes/100 WBC (Bld)41.8 %Zptnbw10.5-60.0The [facility] HospitalComment on above:Performed By: #### CBC #### [facility] [address] [address] [address] Donna Aden DIFF REQNONormalThe Marymount HospitalComment on above: Performed By: #### CBC #### [facility] [address] [place] [address] Dr. Donna Angeles (RBC) [Entitic mass]28.0 whIfwvha72.7-34.0The [facility] HospitalComment on above:Performed By: #### CBC #### [facility] [address] [place] [address] Dr. Donna Angeles (RBC) [Mass/Vol]35.0 g/zDOyoehb02.9-35.2The [facility] Hospitalment on above:Performed By: #### CBC #### [facility] [address] [place] [address] Dr. Donna Angeles (RBC) [Entitic vol]79.9 fLCritically low81.0-99.0The [facility] HospitalComment on above:Performed By: #### CBC #### [facility] [address] [place] [address] Dr. Donna Yao #0.5 103/ulNormal0.3-0.8The [facility] HospitalComment on above:Performed By: #### CBC #### [facility] [address] [place] [address] Dr. Donna Menendezocytes/100 WBC (Bld)8.5 %Normal1.7-12.0[facility] Comment on above:Performed By: #### CBC #### [facility] [address] [place] [address] Dr. Donna CalderónUT #2.8 103/ulNormal1.4-6.5[facility] on above:Performed By: #### CBC #### [facility] [address] [place] [address] Dr. Donna Calderónutrophils/100 WBC (Bld)47.3 %Wjvcfl17.0-75.0The [facility] HospitalComment on above:Performed By: #### CBC #### [facility] [address] [place] [address] Dr. Donna CornejoPlatelet mean volume (Bld) [Entitic vol]11.1 fLNormal9.5-13.5The [facility] HospitalComment on above:Performed By: #### CBC #### [facility] [address] [place] [address] Dr. Donna CornejoPLT187 103/trNpbssn542-731Qbf [facility] HospitalComment on above: Performed By: #### CBC #### [facility] [address] [place] [address] Dr. Donna CornejoRBC4.68 106/ulNormal4.20-5.40The [facility] HospitalComment on above:Performed By: #### CBC #### [facility] [address] [place] [address] Dr. Donna CornejoWBC6.0 103/ulNormal4.0-11.0The [facility] on above: Performed By: #### CBC #### [facility] [address] [place] [address] Dr. Donna Sanchez THYROXINE INDEX T7on [id number]e [facility] on above:Performed By: #### JOSER OBERTO, CMP, LIPA, LIPID, T7, TSH #### [facility] [address] [place] [address] Dr. Donna CornejoT3U36.0 %Mokcdh27.0-39.0The [facility] HospitalComment on above: Performed By: #### JOSE ROBERTO, CMP, LIPA, LIPID, T7, TSH #### [facility] [address] [address] [address] Donna CornejoT4 [Mass/Vol]8.80 ug/dLNormal4.80-13.90[facility] Comment on above:Performed By: #### JOSE ROBERTO, CMP, LIPA, LIPID, T7, TSH #### [facility] [address] [place] [address] Dr. Donna CornejoGLYCOHEMOGLOBIN A1Con [id number] RECOMMENDATIONSEE BELOWNormal The [facility] HospitalComment on above:Result Comment: ADA RECOMMENDED LIMIT 4.0 - 6.0 ADA THERAPEUTIC TARGET < 7.0 ACTION SUGGESTED > 7.0Performed By: #### A1C #### [facility] [address] [place] [address] Dr. Donna CornejoGlucose [Mass/Vol]114 mg/dLNormalThe [facility]mount HospitalComment on above:Performed By: #### A1C #### [facility] [address] [place] [address] Dr. Donna CornejoHbA1c (Bld) [Mass fraction]5.6 %Normal4.5-6.2The [facility] HospitalComment on above:Performed By: #### A1C #### [facility] [address] [place] [address] Dr. Donna CornejoIROVeda 91-51-6980Cnqp [Mass/Vol]55.0 ug/vJCxmpwe91.0-170.0The [facility] HospitalComment on above:Performed By: #### IRON #### [facility] [address] [place] [address] Dr. Donna CornejoLIPASEon 95-80-2431Eqbuzm [Catalytic activity/Vol]181.0 U/LNormal 73.0-393.0The [facility] Hospitalment on above:Performed By: #### JOSE ROBERTO, CMP, LIPA, LIPID, T7, TSH #### [facility] [address] [place] [address] Dr. Donna CornejoLIPID PROFILEon 54-64-4780QKKE-HDL RATIO NORMSKettering Health Washington TownshipComment on above:Result Comment: 3.3 - 4.4 LOW RISK 4.4 - 7.1 AVERAGE RISK 7.1 - 11.0 MODERATE RISK >11.0 HIGH RISKPerformed By: #### JOSE ROBERTO, CMP, LIPA, LIPID, T7, TSH #### [facility] [address] [address] [address] oDnna CornejoCholesterol [Mass/Vol]138 mg/dLNormal<=200[facility] Comment on above:Performed By: #### JOSE ROBERTO, CMP, LIPA, LIPID, T7, TSH #### [facility] [address] [place] [address] Dr. Donna CornejoCholesterol in HDL [Mass/Vol]53 mg/hGVsqtdu29-41GydOhio State University Wexner Medical CenterComment on above:Performed By: #### JOSE ROBERTO, CMP, LIPA, LIPID, T7, TSH #### [facility] [address] [address] [address] Donna Tellezesterol in LDL [Mass/Vol]73.0 mg/dLOhioHealth Van Wert HospitalComment on above:Performed By: #### JOSE ROBERTO, CMP, LIPA, LIPID, T7, TSH #### [facility] [address] [place] [address] Dr. Donna Martines.total/Cholesterol in HDL [Mass ratio]2.6 {ratio} NormalOhio State University Wexner Medical CenterComment on above:Performed By: #### JOSE ROBERTO, CMP, LIPA, LIPID, T7, TSH #### [facility] [address] [address] [address] Donna CornejoHDRustam NORMAL> or = 60 mg/dl - LOW CARDIOVASCULAR RISK <40 mg/dl - HIGH CARDIOVASCULAR RISKOhioHealth Van Wert HospitalComment on above:Performed By: #### JOSE ROBERTO, CMP, LIPA, LIPID, T7, TSH #### [facility] [address] [place] [address] Dr. Donna CornejoLDL CALC NORMALSEE [facility] Private HospitalComment on above:Result Comment: <100 mg/dl OPTIMAL 100 - 129 mg/dl NEAR OR ABOVE OPTIMAL 130 - 159 mg/dl BORDERLINE HIGH 160 - 189 mg/dl HIGH >190 mg/dl VERY HIGH Performed By: #### JOSE ROBERTO, CMP, LIPA, LIPID, T7, TSH #### [facility] [address] [place] [address] Dr. Donna CornejoTriglyceride [Mass/Vol]60 mg/dLNormal<=150The [facility] Comment on above:Performed By: #### JOSE ROBERTO, CMP, LIPA, LIPID, T7, TSH #### [facility] [address] [place] [address] Dr. Donna CornejoVLDL CALC12.0 mg/dLNormalThe [facility] HospitalComment on above: Performed By: #### JOSE ROBERTO, CMP, LIPA, LIPID, T7, TSH #### [facility] [address] [place] [address] Dr. Donna CornejoPROF 14(COMP METB)on 88-61-1883Jzgfyyr [Mass/Vol]4.2 g/dLNormal 3.4-5.0The [facility] HospitalComment on above:Performed By: #### JOSE ROBERTO, CMP, LIPA, LIPID, T7, TSH #### [facility] [address] [place] [address] Dr. Donna CornejoAlbumin/Globulin [Mass ratio]1.4 {ratio}NormalThe [facility] HospitalComment on above:Performed By: #### JOSE ROBERTO, CMP, LIPA, LIPID, T7, TSH #### [facility] [address] [place] [address] Dr. Donna Cortes [Catalytic activity/Vol]57 U/SBkxkhi41-385Saj [facility] HospitalComment on above:Performed By: #### JOSE ROBERTO, CMP, LIPA, LIPID, T7, TSH #### [facility] [address] [place] [address] Dr. Donna Bravo [Catalytic activity/Vol]16 U/UXurape61-41Xvb [facility] HospitalComment on above:Performed By: #### JOSE ROBERTO, CMP, LIPA, LIPID, T7, TSH #### [facility] [address] [place] [address] Dr. Donna CornejoAnion gap [Moles/Vol]15.5 mmol/LNormalThe [facility] Comment on above:Performed By: #### JOSE ROBERTO, CMP, LIPA, LIPID, T7, TSH #### [facility] [address] [place] [address] Dr. Donna CornejoAST [Catalytic activity/Vol]17 U/IIjbcop59-34Nah [facility] HospitalComment on above:Performed By: #### JOSE ROBERTO, CMP, LIPA, LIPID, T7, TSH #### [facility] [address] [place] [address] Dr. Donna CornejoBilirubin [Mass/Vol]0.3 mg/dLNormal0.2-1.0The [facility] Comment on above:Performed By: #### JOSE ROBERTO, CMP, LIPA, LIPID, T7, TSH #### [facility] [address] [place] [address] Dr. Donna CornejoCalcium [Mass/Vol]9.5 mg/dLNormal8.5-10.1[facility] Comment on above:Performed By: #### JOSE ROBERTO, CMP, LIPA, LIPID, T7, TSH #### [facility] [address] [place] [address] Dr. Donna CornejoChloride [Moles/Vol]102 mmol/TCtynos11-219Kpe [facility] Comment on above:Performed By: #### JOSE ROBERTO, CMP, LIPA, LIPID, T7, TSH #### [facility] [address] [place] [address] Dr. Donna CornejoCO2 [Moles/Vol]24.7 mmol/QTctsoz14.0-32.0The [facility] Comment on above:Performed By: #### JOSE ROBERTO, CMP, LIPA, LIPID, T7, TSH #### [facility] [address] [place] [address] Dr. Donna CornejoCreatinine [Mass/Vol]0.76 mg/dLNormal0.55-1.02The [facility] HospitalComment on above:Performed By: #### JOSE ROBERTO, CMP, LIPA, LIPID, T7, TSH #### [facility] [address] [place] [address] Dr. Donna ArnettGFR-AF TUNISIAN>60Normal>=60The [facility] HospitalComment on above:Performed By: #### JOSE ROBERTO, CMP, LIPA, LIPID, T7, TSH #### [facility] [address] [place] [address] Dr. Donna ArnettGFR-NON AF TUNISIAN>60Normal>=60The [facility] HospitalComment on above:Performed By: #### JOSE ROBERTO, CMP, LIPA, LIPID, T7, TSH #### [facility] [address] [place] [address] Dr. Donna CornejoGlobulin (S) [Mass/Vol]3.0 g/dLNormalThe [facility] HospitalComment on above:Performed By: #### JOSE ROBERTO, CMP, LIPA, LIPID, T7, TSH #### [facility] [address] [place] [address] Dr. Donna CornejoGlucose [Mass/Vol]109 mg/dLCritically rike28-575Ohq [facility] HospitalComment on above:Performed By: #### JOSE ROBERTO, CMP, LIPA, LIPID, T7, TSH #### [facility] [address] [place] [address] Dr. Donna CornejoPotassium [Moles/Vol]4.2 mmol/LNormal3.5-5.1[facility] Comment on above:Performed By: #### JOSE ROBERTO, CMP, LIPA, LIPID, T7, TSH #### [facility] [address] [place] [address] Dr. Donna CornejoProtein [Mass/Vol]7.2 g/dLNormal6.4-8.2The [facility] Comment on above:Performed By: #### JOSE ROBERTO, CMP, LIPA, LIPID, T7, TSH #### [facility] [address] [place] [address] Dr. Donna CornejoSodium [Moles/Vol]138 mmol/WVcqspm863-391Bix [facility] Comment on above:Performed By: #### JOSE ROBERTO, CMP, LIPA, LIPID, T7, TSH #### [facility] [address] [address] [address] Donna Michaels nitrogen [Mass/Vol]11.0 mg/dLNormal7.0-18.0The [facility] on above:Performed By: #### JOSE ROBERTO, CMP, LIPA, LIPID, T7, TSH #### [facility] [address] [address] [address] Donna Michaels nitrogen/Creatinine [Mass ratio]14.5 mg/mgNormalThe [facility] HospitalCommclaren caro region on above:Performed By: #### JOSE ROBERTO, CMP, LIPA, LIPID, T7, TSH #### [facility] [address] [place] [address] Dr. Donna Trujillo 02-67-5597IDA8.608 uIU/mLNormal0.358-3.740The [facility] on above:Performed By: #### JOSE ROBERTO, CMP, LIPA, LIPID, T7, TSH #### [facility] [address] [place] [address] Dr. [facility]joGre[facility] Surgery Office/Clinic Noteon 48-69-2426Elhrtwc Surgery Office/Clinic NoteChief Complaint post operative follow up HPI Staff [...] swallowing difficulties, no hearing loss, no ear infection(s),no nose bleeds. Cardiovascular: normal blood pressure, no [...] low FODMAP diet; may need to see baseball inspector about possible food allergies; call with problems/questions. [...] last 30 days Tobacco Use:. 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 Cigarettes, Vaping, Started age 16.0 Years. Yes, 08/06/2021 Family History Brain tumor: Sister. Hypertension: Father. Immunizations Vaccine Date Status Comments influenza virus vaccine, inactivated - Not Given Patient RefusesSt. Francis HospitalComment on above:Result Comment: Electronically Signed By: POPPY VALDEZ, Fred Liriano\.br\Date and Time Signed: 08/29/21 16:16 ESTAmbulatory Visit Summaryon 10-72-8896Ybpzojwchg Visit Summary DOUG WHITING :1990 Visit Date:08/28/2021 Ambulatory Visit Instructions Your Care Team Attending Physician - POPPY VALDEZ, Fred Liriano Primary Care Physician - Stiven Duran MD This Is Your Medications List [...] Migraine Postprandial abdominal bloating Seasonal allergic rhinitis [facility] HospitalPathology Noteon 08-25-2021 Pathology [id number]#1.00CD:[address] [place], [place] [address]Operative Reporton 35-53-3837Ewknayopb Report [id number]#1.00CD:[address] [place], [place] [address]Consent for Procedure/Surgeryon 17-03-2790Pjedfii for Procedure/Surgery [id number]#1.00CD:127[facility] HospitalAmbulatory Visit Summaryon 23-03-4408Qsmkyvffdb Visit Summary JOHANNE MIKEKarl Rustam :1990 Visit Date:08/06/2021 Ambulatory Visit Instructions Your Care Team Attending Physician - Fred MCWILLIAMS MD Primary Care Physician - Stiven Duran MD Referring Physician - Stiven Duran MD This Is Your Medications List [...] degenerative disc disease Migraine Seasonal allergic rhinitis [facility] HospitalPhysician Referralon 07-16-2021 Physician [id number]#1.00CD:127Normal [facility] Vital Signs Date TimeVital SignValuePerforming UysbqwvraVccctaev24-67-9671 13:00-0500Body gctucc548.7 cmAslim Lorenz APRNCharlie App Work Phone: [phone]vAhjptn79-19-7710 13:00-0500Body mass index (BMI) [Ratio]22.18 kg/f3LrmaclHeather Lorenz APRNCharlie App Work Phone: [phone]uJlktvc99-21-2403 13:00-0500Body .5 [degF]Heather Lorenz APRNCharlie App Work Phone: [phone]gMaibdb93-92-4746 13:00-0500Body skjcax02.07 kg Heatehr Lorenz APRNCharlie App Work Phone: [phone]dYizeao65-23-4629 13:00-0500Diastolic blood cxwyablw67 mm[Hg]Heather Lorenz APRNCharlie App Work Phone: [phone]fYvfllj30-78-2375 13:00-0500Heart rate70 /min Heather Lorenz WINDOW SYSTEMS ADMINISTRATOR-PATIENT FINANCIAL COUNSELOR Work Phone: [phone]rSkeiuq78-92-5292 13:00-0500Respiratory rate16 /minHeather Lorenz WINDOW SYSTEMS ADMINISTRATOR-PATIENT FINANCIAL COUNSELOR Work Phone: [phone]eUoxyel18-92-0544 13:00-0394JdF7% (BldA) [Mass fraction]100 %Heather Lorenz WINDOW SYSTEMS ADMINISTRATOR-PATIENT FINANCIAL COUNSELOR Work Phone: [phone]cYeoywf25-19-9651 13:00-0500Systolic blood evbrdoqh909 mm[Hg]Heather Lorenz APRN-PATIENT FINANCIAL COUNSELOR Work Phone: [phone]nLmaxbv80-81-2678 04:10-0400Body hhazkspxetr46.9 [degF]Tammie Steele MD Work Phone: [place]06-08-2025 04:10-0400Diastolic blood abhkyvoq44 mm[Hg]Tammie Steele MD Work Phone: [place]06-08-2025 04:10-0400Heart rate86 /Jaqui Steele MD Work Phone: [employer] Fayabc39-39-8133 04:10-0400 Respiratory rate16 /minSenoch Steele MD Work Phone: [employer] Lhjras72-95-4264 04:10-9200EyM3% (BldA) [Mass fraction]100 %Tammie Steele MD Work Phone: [place]06-08-2025 04:10-0400Systolic blood yxqbedpu309 mm[Hg]Tammie Steele MD Work Phone: [place]06-07-2025 00:45-0400Body izbsrg706.4 cmSenoch Steele MD Work Phone: [facility]06-07-2025 00:45-0400Body mass index (BMI) [Ratio]28.12 kg/v3UzlumcTammie Steele MD Work Phone: [facility]06-07-2025 00:45-0400Body vqimiw10.3 kgTammie Steele MD Work Phone: [facility]12-30-2024 14:53-0500Body mass index (BMI) [Ratio]20.14 kg/i6UhoevwRenea Gonzalez MD Work Phone: [phone] [employer] Bxojjv86-29-0222 14:53-0500Body zzgoum07.88 kgRenea Gonzalez MD Work Phone: [phone] [employer] Mwuwxs92-68-1026 14:53-0500Diastolic blood aebtxcke51 mm[Hg]Renea Gonzalez MD Work Phone: [phone] [employer] Duzrpv17-35-9407 14:53-0500Heart rate 87 /minSethan Gonzalez MD Work Phone: [phone] [employer] Qzjbue32-02-6600 14:53-0500Systolic blood sussckxp803 mm[Hg]Renea Gonzalez MD Work Phone: [phone] [employer] Dksqvv57-83-5193 11:43-0500Body msnkudvownw06.1 [degF]Delfino Harmon DO Work Phone: [facility] [employer] Qcmwid49-55-1337 11:43-0500Diastolic blood jvnkkpwo45 mm[Hg]Delfino Wittters DO Work Phone: [facility] CenterMarketYze Wmvmdr80-30-3802 11:43-0500Heart rate 75 /minDelfino Wittters DO Work Phone: [facility] CenterMarket[facility] Uuuqjm94-69-6512 11:43-0500 Respiratory rate18 /minDelfino Wittters DO Work Phone: [facility] CenterMarket[facility]ze Laznkz59-19-5004 11:43-8012CsY2% (BldA) [Mass fraction]98 %Delfino Harmon DO Work Phone: [employer]12-25-2024 11:43-0500Systolic blood csvsldna475 mm[Hg]Delfino Harmon DO Work Phone: [facility]412-25-2024 04:13-0500Body ofijfg713.1 cmDelfino Harmon DO Work Phone: [facility]412-25-2024 04:13-0500Body mass index (BMI) [Ratio]19.64 kg/u8PgudaDelfino Harmon DO Work Phone: [employer]12-25-2024 04:13-0500Body baueue67.52 kgDelfino Harmon DO Work Phone: [facility]is4 Encounters Encounter DateEncounter TypeCare ProviderFacilityStart: 68-14-9625Wsbgraoqys and management of inpatientELOISA DaysiLong BEASLEYFacility:METROHealthStart: 05-10-2025 ambulatoryTIMJOSE ANGEL BEASLEYFacility:METROHealthStart: 05-03-2025 End: 45-85-1254Kabphel encounter procedureAlerebecca Gregory MD Work Phone: [employer] CardiologyStart: 05-03-2025 End: 93-12-1155Botpitn encounter statusAlerebecca Gregory MD Work Phone: [employer] Work Phone: Start: 05-02-2025 End: 30-31-6676Izadlk consultation new/estab patient 81 Breanna Kelechi WINDOW SYSTEMS ADMINISTRATOR-PATIENT FINANCIAL COUNSELOR Work Phone: [employer] Pre-Admission TestingComment on above: Preop testing (Primary Dx); Body mass index (BMI) 22.0-22.9, adultStart: 05-02-2025 End: 94-54-4342Qpbxzqi encounter statusAlexhomero Lorenz WINDOW SYSTEMS ADMINISTRATOR-PATIENT FINANCIAL COUNSELOR Work Phone: MetroElecsnetStart: 17-03-9220Awnagdkhz for other preprocedural examinationASHHOMERO Tomlin [facility] CenterHealth SystemStart: 05-02-2025 End: 90-94-4962Epivei outpatient visit 25 minutesEloisa Beasley MD Work Phone: [facility] Orthopedic SpineComment on above:Failed back surgical syndrome (Primary Dx)Start: 05-02-2025 End: 15-54-4125fgxvwohulxVDQWNRL A. MOOREFacility:METROHealthStart: 04-29-2025 End: 32-00-2017Tixlju encounterEloisa Beasley MD Work Phone: [facility] CenterHealthStart: 03-22-2025 End: 01-02-2935Tooytgjny to same day surgery centerEloisa Beasley MD Work Phone: [facility] NeurosurgeryStart: 03-16-2025 End: 89-28-7465Avfkqc outpatient visit 15 minutesEloisa Beasley MD Work Phone: [facility] Orthopedic SpineComment on above:Failed back surgical syndrome (Primary Dx)Start: 03-16-2025 End: 80-89-6700mtqgpmiuzhLXLDLOQ PROVIDERFacility:METROHealthStart: 03-08-2025 End: 84-80-1810tcgamkydedLZYARDH A. MOOREFacility:METROHealthStart: 03-08-2025 End: 81-57-4469Xlepbwipbl hospital visit by physician Ip/Op Mri 1[facility] RadiologyComment on above:Failed back surgical syndromeStart: 02-07-2025 End: 36-07-1928hfiszeaivkJWDUOBM A. MOOREFacility:METROHealthStart: 01-27-2025 End: 40-42-8865xkvriaslkkKLXMETB A. MOOREFacility:METROHealthStart: 01-27-2025 End: 52-64-4889Kddphrlpiu hospital visit by physicianM[facility] RadiologyComment on above:Failed back surgical syndromeStart: 01-27-2025 ambulatoryUNKNOWN PROVIDERFacility:METROHealthStart: 01-24-2025 End: 29-27-6207Aowzrl outpatient new 45 minutesEloisa Beasley MD Work Phone: [facility] Orthopedic SpineComment on above:Failed back surgical syndrome (Primary Dx)Failed back surgical syndromeStart: 01-24-2025 End: 28-72-2205homsehikkxWVZNFUL PROVIDERFacility:METROHealthStart: 12-03-2024 End: 55-81-7553Pxkzblzgeu and management of inpatientSbarrievon Octavio Steele MD Work Phone: [facility] 4AStart: 12-02-2024 End: 22-45-9373Tibyzkqbl department patient visitDOCorpus Christ[facility] Ambulatory PPGStart: 58-66-1389emmfdqkmmiBPIZNKMercy Medical Centertart: 07-14-2024 End: 33-53-6304Yhugpm outpatient visit 15 minutesMorylie Kim MD Work Phone: [facility] Vascular FremontComment on above: Neurogenic claudication (Primary Dx)Start: 07-14-2024 End: 33-23-8542hqbemwmmprWNZCROC Octavio [facility] Ambulatory PPGStart: 07-07-2024 End: 88-93-2800vefolpxheqEHVRF T [facility] HospitalStart: 07-05-2024 End: 38-52-6481hakjlgwwagNJWFZFOYZ S UZELACUniversity Hospitals Geauga Medical Center HospitalStart: 98-18-8399hslaoybczyJPUDXOHealthSouth [facility] HospitalStart: 06-27-2024 End: 88-92-3875Sjkelh outpatient new 45 minutesRenea Gonzalez MD Work Phone: [facility]Sum[facility] Vascular FremontComment on above:Back pain; Atrophy of muscle of right thighStart: 06-27-2024 End: 62-19-1603elvkgjijcpVXOAFA G AFRIDMercy Health [facility] Ambulatory PPGStart: 06-22-2024 End: 17-72-4776vpmqeypsuyKHZESCHKettering Health Preble HospitalStart: 06-21-2024 End: 25-96-2455Lcvjoyjgt department patient visitYunior Harmon MD Work Phone: [facility] Observ[facility] UnitComment on above:Back pain (Primary Dx); Atrophy of muscle of right thighStart: 06-18-2024 End: 74-23-3309Dwvjijped department patient visitSTIVEN [facility] HospitalStart: 04-14-2024 End: 11-29-5812ivklcngpazAGJYOP A SEIMENTUniversity Hospitals Geauga Medical Center HospitalStart: 04-12-2024 End: 30-70-6788Lngjfisgq department patient visitSTIVEN Smith [facility] HospitalStart: 11-23-2023 End: 67-39-1880Nnnktnpkf department patient visitSTIVEN Smith [facility] HospitalStart: 81-96-3693Dojyetbic for general adult medical examination without abnormal findingsDR STIVEN HOY .[facility] HospitalStart: 07-21-2022 End: 84-18-6410lpmicueoupIJ STIVEN HOY .Facility:V3Kqtku: 07-21-2022 End: 90-72-6818Xbyhzsjhs for general adult medical examination without abnormal findingsDR STIVEN HOY .Facility:O2Ujsax: 09-11-2021 End: 29-74-3537lpjkcmplxzJB STIVEN HOY .Facility: Procedures DateProcedureProcedure DetailPerforming ClinicianStart: 05-02-2025 End: 84-17-5943Slldo typing serologic aboAshhomero Kelechi WINDOW SYSTEMS ADMINISTRATOR-PATIENT FINANCIAL COUNSELOR Work Phone: Start: 53-30-8846Wksin typing, ABO, Rho(D) and RBC antibody screeningAlexhomero Kelechi WINDOW SYSTEMS ADMINISTRATOR-PATIENT FINANCIAL COUNSELOR Work Phone: Start: 04-86-1368Vvwfufgsuswlxn time partial plasma/whole bloodHeather Byerstrevin WINDOW SYSTEMS ADMINISTRATOR-PATIENT FINANCIAL COUNSELOR Work Phone: Start: 03-08-2025 End: 99-76-7266Vfx spinal canal thoracic w/o contrast Venkatesh Beasley MD Work Phone: Start: 01-27-2025 End: 45-71-6934Cjiaudsxi Comparison study - date and timeEloisa Beasley MD Work Phone: Start: 55-62-2987Ymzdau ecg 1-3 leads w/interpretation & reportUnknown Provider ResultStart: 67-10-9957Zfzzd gap [Moles/Vol]Tammie Steele MD Work Phone: Start: 71-52-1364Npdmn metabolic panel calcium total Bj Diglio PA Work Phone: Start: 88-67-1063DMTISJNLGW FILTRATION RATE, ESTIMATED Tammie Steele MD Work Phone: Start: 44-64-7787Lemhxj ecg 1-3 leads w/interpretation & reportUnknown Provider ResultStart: 12-03-2024 End: 46-46-5900Lhp routine ecg w/least 12 lds i&r onlyAlexis Diglio PA Work Phone: Start: 44-23-0261Bor spinal canal cervical w/o & w/contr Leesa Steele MD Work Phone: Start: 21-29-4175Lpyxuh-up visitFollow-upMOHAMED F OSMANStart: 19-24-5701Qsk spinal canal lumbar w/o contrast materialTimothy Pariseau DO Work Phone: Start: 52-81-8852Thcddmmrxe bloodTimothy Pariseau DO Work Phone: Plan of Treatment DateCare ActivityDetailAuthorStart: 18-95-2093Ydjvnipb (RZV) Vaccine (1 of 2) Shingles (RZV) Vaccine (1 of 2)[facility]HealthStart: 91-75-9525Wmqnhkkobp measurementBasic Metabolic PanelMetroHealthStart: 81-17-3575PPzQ,Tdap and Td Vaccines (9 - Td or Tdap)DTaP,Tdap and Td Vaccines (9 - Td or Tdap)[facility] SystemStart: 82-96-1211IOkJ/Tdap/Td vaccine (8 - Td or Tdap)DTaP/Tdap/Td vaccine (8 - Td or Tdap)[facility] SystemStart: 14-43-6040Kyrkdxz vaccinationTetanus (Td or Tdap) BoosterMetroHealthStart: 94-89-6610Ckgee BMI ScreeningAdult BMI ScreeningProMercy Health Fairfield Hospitalca Health SystemStart: 20-78-2135Jvsrabi ScreeningTobacco ScreeningProCincinnati Va Medical Center SystemStart: 05-23-2025 End: 63-85-4222Xbyyruh encounter jpohrxcvs10/25/2025 11:00 AM EST Office Visit [facility] [address] [place] [phone] Eloisa Beasley MD [address] [place] [phone] [facility] Orthopedic SpineStart: 05-10-2025 End: 41-50-9065Ibjhdyvws to same day surgery centerLicking [facility] Hospital Main ORComment on above:Exploration L5-S1 fusion with removal hardware, reinstrumentation, repair dural tearStart: 05-10-2025 End: 63-47-7700CJMGFCWFQNO AND FUSION, POSTERIOR, THORACIC LUMBARMetroCleveland Clinic [facility] Start: 58-23-8977Loivwpacdo hospital visit by physicianLicking Memorial Hospital Main ORStart: 05-02-2025 End: 62-59-8257Shfsfdm encounter qalizxxww26/04/2025 1:30 PM EST Office Visit [facility] Pre-Admission Testing [address] [place] [phone] Heather Lorenz APRN-LICHA [address] [place] [phone] [facility] Pre-Admission Testing Start: 05-02-2025 End: 59-11-0397Jexscuf encounter rhkkcrfav02/04/2025 11:45 AM EST Office Visit [facility] [address] [place] [phone] Eloisa Beasley MD [address] [place] [address] [facility]opedic SpineStart: 52-37-6259Qoripopld vaccinationInfluenza Vaccine (#1)[facility] HospitalStart: 71-82-4670AOFFK-19 Vaccine ( season)COVID-19 Vaccine ( season)[facility]HealthStart: 66-41-4109CZHFR-19 Vaccine ( season)COVID-19 Vaccine ( season)[facility] CenterHealthStart: 09-30-7530Zaoqvjhif vaccination Influenza Vaccine (#1)[facility] HospitalStart: 02-22-2025 End: 16-07-3250SO Lumbar spine WO contrastMR L-SPINE W/O Imaging Within 1 week Failed back surgical syndrome Expected: 02/22/2025, Expires: 02/22/2026 MetroHealthComment on above:Expected: 02/22/2025, Expires: 02/22/2026Start: 02-22-2025 End: 61-28-5148OK Thoracic spine WO contrastMR T-SPINE W/O Imaging Within 1 week Failed back surgical syndrome Expected: 02/22/2025, Expires: 02/22/2026[facility] CENTERSocialtyze SYSTEM Work Phone: Comment on above:Expected: 02/22/2025, Expires: 02/22/2026Start: 42-43-4836Gsjwexaoo vaccinationFlu vaccine (Season Ended)[facility]: [facility]25 End: 38-71-7583FN Cervical spine WO contrastMR C-SPINE W/O Imaging Within 1 week Failed back surgical syndrome Expected: 01/26/2025, Expires: 01/26/2026[facility]ERSocialtyze SYSTEM Work Phone: Comment on above:Expected: 01/26/2025, Expires: 01/26/2026Start: 07-14-2024 End: 06-85-7606Lwahuho encounter aorhpohoq19/16/2025 2:10 PM EST Office Visit [facility] [place] [address] Jose Kim MD [address], [address] [address] [facility] 07-07-2024 End: 90-26-3436Loihdqi encounter bnunhfqnq33/09/2025 3:30 PM EST Appointment [facility] [address] [place] [address] Delfino Harmon, [address] [place] [address] [facility]: 07-05-2024 End: 40-11-6620Awzgcel encounter gtgadcnai07/07/2025 10:45 AM EST Appointment [facility] [address] [place] [id number] [phone] [facility] - MRI ImagingStart: 06-22-2024 End: 65-24-6769JD.doppler Lower extremity artery - bilateralVas art duplex lwr bilateral Vascular Ultrasound Routine Back pain Atrophy of muscle of right thigh Expected: 06/22/2024, Expires: 06/22/2025[facility] Work Phone: Comment on above:Expected: 06/22/2024, Expires: 06/22/2025Start: 50-14-5240FAUYI-19 Vaccine ( season)COVID-19 Vaccine ( season)[facility]Start: 25-75-3965Kgyfsgfnl vaccinationInfluenza VaccineWhite Hospital SystemStart: 66-72-8660Ntkdooskg for malignant neoplasm of cervixBon [facility]ena Health SystemStart: 75-19-1853UPH Vaccine (optional start 27-45 years)HPV Vaccine (optional start 27-45 years) [facility]: 81-33-5627Cmkzcrrex for malignant neoplasm of cervixPap Smear [facility]art: 80-62-0666Zdyprioex A (HAV) Vaccine (optional start 19+ years)Hepatitis A (HAV) Vaccine (optional start 19+ years)[facility] Start: 63-66-2772Bhwbxzitx B vaccinationHepatitis B (HBV) Vaccine (1 of 3 - 19+ 3-dose series)[facility]Start: 77-32-5348Qpksagnxngno vaccinationPneumococcal Vaccine(s) (1 of 2 - PCV)[facility]Start: 13-90-1207Alonysbvo C screeningFauquier Health SystemStart: 84-06-9737AON screeningChildren's Hospital of The King's Daughtersart: 50-51-5117Pedhdmgpd vaccine (1 of 2 - 13+ 2-dose series)Varicella vaccine (1 of 2 - 13+ 2-dose series)[facility] SystemStart: 65-62-3278Hwypjbsrvy ScreenDepression ScreenChildren's Hospital of The King's Daughtersart: 82-88-5586Jmpllstwjh ScreeningDepression ScreeningWhite Hospital SystemLAMINECTOMY AND FUSION, POSTERIOR, THORACIC LUMBARLAMINECTOMY AND FUSION, POSTERIOR, THORACIC LUMBAR Routine scheduled Failed back surgical syndromeMetroHealthOxygen Therapy - Maintain SpO2: 90%; *COMMAND CENTER ANALYST Guidelines for O2: Yes; Document: \phsi.[email or web address]\epic\EPIC_Reference\Orders\Respiratory Care Guidelines\CPG Oxygen 2022.pdfOxygen Therapy - Maintain SpO2: 90%; *COMMAND CENTER ANALYST Guidelines for O2: Yes; Document: \[employer] Systemi.[email or web address]\epic\EPIC_Reference\Orders\Respiratory Care Guidelines\CPG Oxygen 2022.pdf Respiratory Care Routine AsNeeded until discontinued starting 06/22/2024[facility] Work Phone: Comment on above:As Needed until discontinued starting 06/22/2024Oxygen therapy [Minimum Data Set]Initiate Oxygen Therapy Protocol Respiratory Care Routine As Needed until discontinued starting 12/03/2024 [facility] SystemComment on above:As Needed until discontinued starting 12/03/2024Spirometry panelIncentive spirometry Respiratory Care Routine Every 2hr while awake until discontinued starting 12/03/2024 [facility] Comment on above:Every 2hr while awake until discontinued starting 12/03/2024 Immunizations Immunization DateImmunizationNotesCare NgkoqbksTfyozclc36-39-4778jxwvwia toxoid, reduced diphtheria toxoid, and acellular pertussis vaccine, adsorbedEloisa Beasley MD Work Phone: [phone]aOqujjg05-82-1152wqknevp toxoid, reduced diphtheria toxoid, and acellular pertussis vaccine, adsorbedEloisa Beasley MD Work Phone: [phone]qEbgkgs11-02-1564qozxiqr toxoid, reduced diphtheria toxoid, and acellular pertussis vaccine, adsorbedEloisa Beasley MD Work Phone: [phone]nMlkjpp62-05-7749upycncp and diphtheria toxoids, adsorbed, preservative free, for adult use (5 Lf of tetanus toxoid and 2 Lf of diphtheria toxoid)Eloisa Beasley MD Work Phone: [phone]dGghgtw52-55-7816jhvsdsa, mumps and rubella virus vaccineEloisa Beasley MD Work Phone: [facility] Payers DatePayer CategoryPayerPolicy [id number] (Managed Care)[facility] MEDICAID Member Subscriber Plan / Payer (Effective 2023-Present) Name: Doreen Whiting Relation to Subscriber: Self Name: Doug Whiting Payer ID: [id number] ([facility]) Group ID: [id number] Type: Medicaid HMO Address: [place] [id number] 2023MedicaidANTHEM MEDICAID [id number] 2.16840.1.494318.3.57[id number] 2.0.1.107040.3.57[id number] 2.0.1.336072.3.57[id number] 2.0.1.879977.3.57[id number] 2.0.1.366500.3.57[id number] 2.0.1.447756.3.57[id number] 2..1.852239.3.579.[id number] 2.840.1.789749.3.579.[id number] 2.0.1.802284.3.57[id number] 2..1.753455.3.579.2.[id number] 2.0.1.579154.3.57[id number] 2.840.1.720618.3.579.2.0[id number] 2.840.1.300551.3.57[id number] 2.16.840.1.513147.3.57[id number] 2.16840.1.309672.3.579.2.339368-02-6679Yzbfsff237539443 2.16840.1.464078.3.579.2.8[id number] 2.16840.1.895660.3.579.2.6583-69-1579Evxfdju981614569 2.0.1.755632.3.579.[id number] 2.840.1.559067.3.579.2.85502-84-7992Gqpnjjs732016528 2.0.1.679450.3.579.2.77989-68-3982Ldiyhcc170181160 2.840.1.106080.3.579.2.71146-65-0568Hzupeyq064447895 2.0.1.208177.3.579.2.71662-38-0937Lphadyj425493738 2.840.1.604601.3.579.[id number] 2.840.1.208142.3.579.2.24261-78-4830Xazezmc751209333 2.16840.1.885729.3.579.2.60773-08-2480Wkumnze306231173 2.840.1.156839.3.579.2.50111-96-7688Akcjzxk533737534 2.16840.1.032028.3.579.2.84192-35-2622Ccwrwbn306567355 2.16840.1.751580.3.579.2.42165-09-6254Obsaxve847895077 2.16.840.1.170459.3.579.2.35858-06-9690Diaxpig075651438 2.16.840.1.578168.3.579.2.68747-81-7777Cbviong501984081 2.16.840.1.468717.3.579.2.93138-06-7650Msdzsxw044127425 2.16.840.1.801387.3.579.2.07795-78-6107Scczxhf861020844 2.16.840.1.561349.3.579.2.78444-80-4584Mfkucod425037678 2.16.840.1.673324.3.579.2.54941-88-4158Sfxvsgm494516222 2.16.840.1.080854.3.579.2.06179-94-6947Usxtwyf420352662 2.16.840.1.884791.3.579.2.55303-13-6347Gaeeuwo522939302 2.16.840.1.431255.3.579.2.61284-38-7530Zhotfwt764271935 2.16.840.1.652866.3.579.2.24396-91-6526Qvywhia269430122 2..840.1.302707.3.579.2.732 [id number] 1960Unknown [id number] Social History DateTypeDetailFacilityStart: 54-35-2179Qvxxwji smoking status NHISEx-smoker [facility] SystemHistory of tobacco useCurrent smokerProCincinnati [facility] Medical [facility] SystemHistory of tobacco useCigarette SmokerWhite Hospital SystemStart: 11-23-2023 End: 39-56-0834Fpgoukf use and exposureSmokeless tobacco non-userProCincinnati Va Medical Center SystemStart: 06-21-2024 End: 66-72-0277Uwsermncw beverage intakeLifetime non-drinker (finding)[facility]: 06-22-2024 End: 08-45-2361Aejraue of Social functionFormerly [facility]aretart: 06-22-2024 End: 87-64-9974CMN UtilitiesSelect Medical TriHealth Rehabilitation HospitalHas the electric, gas, oil, or water company threatened to shut off services in your home in past 12MoNo [facility] Rehabilitation HospitalAdolescent depression screening mfmltsowmk1HpjEiknbxFormerly [facility]aretart: 42-16-0769Dla assigned at birthNot on fileFormerly [facility]aretart: 02-01-2015 End: 06-78-5673HznYmlitu (finding)[facility] Rehabilitation HospitalTobacco smoking status NHISTobacco smoking consumption unknownBon [place]amosa(I/We) worried whether (my/our) food would run out before (I/we) got money to buy more.Never trueYavapai Regional Medical Center EverybodyCar [facility] HospitalStart: 97-48-6711Wkbdgxj smoking status NHIS Occasional tobacco smokerMetroHealthStart: 01-72-1113Mqofbwd Commentvapes MetroHealthStart: 07-05-9615Ulwfovv smoking status NHISSmokes tobacco daily MetroHealthStart: 01-39-4388Vhotmthkz beverage intakeEx-drinker (finding) MetroHealthStart: 46-87-2085Hydqhdg of drug misuse behaviorMisuses drugs (finding)[facility]roHealthStart: 93-52-4710Fwbiwfv of drug misuse behaviorCannabis (substance)[facility] Clinical Notes 08-06-2021 to 05-10-2025 Note Date & PisbJtnqQdshoijm12-52-8886 NoteSurgical History and Physical [facility] Main [facility] [address] [facility] [address] Name: Doug Whiting : 1990 35 year old CSN: [id number] Attending: Eloisa Beasley MD Date of Admission: No admission date for patient encounter. Room/Bed: Main OR/PeriOp Planned Procedure: Procedure(s): Exploration L5-S1 fusion with removal hardware, reinstrumentation, repair dural tear HPI: Doug Whiting is a 35 year old female with [...] in visit on 05/02/25 (from the past 56087 hours) CBC WITH DIFFERENTIAL Collection Time: 05/02/25 [...] Total 7.0 6.1 - 7.9 g/dL ASSESSMENT AND PLAN Assessment: Doug Whiting is a 35 year old female with Pre-Op Diagnosis Codes: * Failed back 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]. Plan: I have personally reviewed the patient's medical history and performed the physical examination below immediately before the procedure. Medications, allergies, and pertinent laboratory and diagnostic tests were also reviewed at this time. Procedure is still indicated. Yes Seen an evaluated by Jann Fung MD. Discussed with attending Eloisa Beasley MD. Jann Fung MD 05/09/25 5:43 PM [1] No past medical history on file. [2] No family history on file. [3] Social History Socioeconomic History Marital status: Single Tobacco Use Smoking status: Every Day Types: Cigarettes Smokeless tobacco: Never Tobacco comments: vapes Substance and Sexual Activity Alcohol use: Not Currently Drug use: Yes Types: Marijuana/THC Comment: dailyThe ESKYElecsnet Zhlzsh05-72-6928 History of Present illness Narrative* Inder Gregory MD - 05/03/2025 12:09 PM EST Images from the original note were not included. E-Consult is requested for the following Dx: 35 year old, female. Clinical Question & Relevant Details (including any failed cardiac meds or relevant issues thatcould be impacting symptoms): patient is scheduled for Exploration L5-S1 fusion with removal hardware, reinstrumentation, repair dural tear on 05/10/2025. H/o asthma, smoker, dep/anxiety, anemia, POTS. Mets <4 had 2 lumbar surgeries since Jun 2024, unable to walk long distances d/t severe pain, uses a walker. Would she benefit from any intervention prior to surgery? I personally reviewed the following relevant data: EKG: [facility] - sinus iRBBB Recommendations: Ms. Doug Whiting can proceed with surgery as planned with acceptable trupti-op and post-op CV event rate. Inder Gregory M.D., [facility], [place] call center associate, Non-invasive cardiology. Director, Cardiac CICU and Cardiac Telemetry Director, Nuclear Cardiology The majority of the service time of 6 minutes (>50%) was devoted to the medical consultative internet discussion. documented in this [id number] Instructions* Patient Instructions* Heather Lorenz APRN-PATIENT FINANCIAL COUNSELOR - 05/02/2025 1:54 PM EST On the [...] for pain. Please hold all Vitamin E, Fajardo 3, fish oil and herbal supplements for [...] otherwise contacted. ? Expect a call from [facility] one business day prior to surgery for surgery arrival time and location. ? Please plan to restart your medications the day after surgery unless otherwise explicitly instructed. ? Please contact your surgeon s/proceduralist s office for any surgical or recovery types of questions. ? CANCELLING YOUR SURGERY/PROCEDURE: If you get a cold, are not feeling well, or become , please call your surgeon s office as soon as possible. ? Refer to your Preparing for Your Surgery/Procedure booklet or [facility].org/surgery if you have questions. Contact the Pre-Admission Testing department at [phone] or your surgeon's office with any questions [...] stay with you after surgery. Please call [facility] Social Work if you need transportation assistance or have concerns about going home [phone]. Post-op Nausea and Vomiting: A risk of [...] of your surgery. Thank you for choosing [facility]; it is our pleasure to care for you documented in this [id number] History of Present illness Narrative* Heather Lorenz APRN-CNP - 05/02/2025 1:30 PM EST Images from the original note were not included. Pre-Admission Testing Consultation Doug Whiting, [id number] 35 year old Female 05/03/2025 HIGH ANXIETY Consult placed to [facility] by Dr. Beasley due to significant PMH of asthma, anemia [facility] Triage Risk Score Total Score: 6 6 The case is high risk; it is over 4 hours long or is a hysterectomy, joint replacement, colon, spine, or neuro procedure. Doug Whiting is scheduled for Exploration L5-S1 fusion with removal hardware, reinstrumentation, repair dural tear on 05/10/2025. Pre-Op diagnosis of: Pre-Op Diagnosis Codes: * Failed back 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] HISTORY OF PRESENT ILLNESS: patient presents to PAT s/p lumbar surgery x2. She endorses constant pain and BLE weakness. Patient is here for pre-admission optimization and education prior to surgery. RECENT ILLNESS: Serious illness or hospitalization within the last six months. Yes 12/03-12/04/2024 @[facility] H[facility]PITAL COURSE: Patient is a 34-year-old female who is status [place] to the [place] today at [place] for a wound exploration after being seen in office with complaints of intermittent headache. In surgery it was revealed a durotomy that was repaired without complication. She was slow to wake up from anesthesia postoperatively but was having LE weakness with inability to feel her legs. CT head completed at [facility] that was negative. Patient transferred to [facility] For stat imaging of the brain and entire spine. MRI imaging was unremarkable. Patient was then able to move upper and lower extremities with no issue. Patient was seen on 12/04/24 and denied any headaches or weakness. Patient was ready to go home with drain management to be done by family. STOP BANG: STOP-BANG Row Name 05/02/25 1331 History of sleep apnea? 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 (+) irregular periods Comment: LMP 04/05/2025- spotting for few days, will come every few months x2 TL Neuro/Psych (+) depression, anxiety/panic attacks Comment: Headache migraines PTSD Paresthesia in hands & BLE Cardiovascular Comment: POTS last syncopal episode was between 2-11/2024 Palpitations daily GI/Hepatic/Renal (+) GERD well controlled, [...] SIGNS: BP 121/72 Pulse 70 Temp 97.5 F (36.4 C) Resp 16 Ht 1.547 m (5' 0.9 ) Wt 53.1kg (117 lb) SpO2 100% BMI 22.18 kg/m PAIN ASSESSMENT: Severity: 7 Location: lower back- [...] ECG No previous ECGs available Confirmed by LORIE ARAUZ ([id number]) on 12/03/2024 7:30:17 PM ECHO: [...] - referring and communicating with other health critical care educator (when not separately reported) - documenting clinical [...] surgical history on file. documented in this [id number] NotePre-Admission Testing Consultation Doug Whiting, [id number] 35 year old Female 05/03/2025 HIGH ANXIETY Consult placed to [facility] by Dr. Beasley due to significant PMH of asthma, anemia [facility] Triage Risk Score Total Score: 6 6 The case is high risk; it is over 4 hours long or is a hysterectomy, joint replacement, colon, spine, or neuro procedure. Doug Whiting is scheduled for Exploration L5-S1 fusion with removal hardware, reinstrumentation, repair dural tear on 05/10/2025. Pre-Op diagnosis of: Pre-Op Diagnosis Codes: * Failed back 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] HISTORY OF PRESENT ILLNESS: patient presents to PAT s/p lumbar surgery x2. She endorses constant pain and BLE weakness. Patient is here for pre-admission optimization and education prior to surgery. RECENT ILLNESS: Serious illness or hospitalization within the last six months. Yes 12/03-12/04/2024 @[facility] H[facility]PITAL COURSE: Patient is a 34-year-old female who is status post L5-S1 decompression and fusion done 09/16/2024 at [place]. She was taken back to the OR today at [place] for a wound exploration after being seen in office with complaints of intermittent headache. In surgery it was revealed a durotomy that was repaired without complication. She was slow to wake up from anesthesia postoperatively but was having LE weakness with inability to feel her legs. CT head completed at [place] that was negative. Patient transferred to [facility] For stat imaging of the brain and entire spine. MRI imaging was unremarkable. Patient was then able to move upper and lower extremities with no issue. Patient was seen on 12/04/24 and denied any headaches or weakness. Patient was ready to go home with drain management to be done by family. STOP BANG: STOP-BANG Row Name 05/02/25 133 History of sleep apnea? 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 (+) irregular periods Comment: LMP 04/05/2025- spotting for few days, will come every few months x2 TL Neuro/Psych (+) depression, anxiety/panic attacks Comment: Headache migraines PTSD Paresthesia in hands AND BLE Cardiovascular Comment: POTS last syncopal episode was between 2-11/2024 Palpitations daily GI/Hepatic/Renal (+) GERD well controlled, PUDnephrolithiasis (passed on own) Comment: Liver mass s/p biopsy- benign Colitis Heme/Other (+) anemia Other ROS: Failed back syndrome Premie- 2 months early T AND A PREVIOUS ANESTHETIC COMPLICATIONS: no history of difficult [...] SIGNS: BP 121/72 Pulse 70 Temp 97.5 ???F (36.4 ???C) Resp 16 Ht 1.547 m (5' 0.9 ) Wt 53.1 kg (117 lb) SpO2 100% BMI 22.18 kg/m??? PAIN ASSESSMENT: Severity: 7 Location: lower back- [...] as planned LABS, TESTS, CONSULTS ORDERED: Orders AND Meds Signed During This Encounter Ba (more content not included)...[employer] [id number] History of Present illness Narrative* Harjinder Verdin MA - 05/02/2025 11:47 AM EST Patient was identified by name and date of . Harjinder Verdin MA * Eloisa Beasley MD - 05/02/2025 7:03 AM EST DX: Failed back LV: [id number] Ms Whiting comes in today with family. It is [...] day of their surgery. documented in this [id number] History of Present illness Narrative* Eloisa Beasley MD - 03/15/2025 6:37 AM EDT DX: Failed back LV: [id number] Ms Whiting returns today to review the MRIs ordered at our last visit. PE: Unchanged INV: MRI cervical and thoracic spines performed 07feb2025 MRIs lumbar performed 08mar2025 IMP: 35yo female s/p L5-S1 fusion with ongoing symptoms. PLAN: I told her I'm not sure where her symptoms are coming from. I don't know what happened duringthe second surgery to give her these symptoms. I offered her exploration of the fusion with possible repair of dural tear and reinstrumentation. She can call the office to schedule or follow up PRN. documented in this [id number] Note* Addendum Note - Eloisa Beasley MD - 02/22/2025 3:05 AM EDTAddended by: ELOISA BEASLEY on: 02/22/2025 03:05 AM Modules accepted: Orders [id number] Miscellaneous Notes* Addendum Note - Eloisa Beasley MD - 02/22/2025 3:05 AM EDTAddended by: ELOISA BEASLEY on: 02/22/2025 03:05 AM Modules accepted: Orders documented in this [id number] History of Present illness Narrative* Eloisa Beasley MD - 01/24/2025 4:14 AM EDT CONSULTED BY: Gale Duran MD CC: Neck pain with headaches, lower back pain and L leg misery HPI: 35yo female s/p L5-S1 decompression and fusion done 09/16/2024 at [place] [address] Dr Manrique, reexploration with repair of dural tear . Significant L leg misery before her 1st surgery. After her 1st surgery her L leg was significantly improved but after the 2nd operation her L lower extremity symptoms are worse than they were before the 1st surgery. Also complains of back pain. She statesafter her 2nd surgery she woke without the ability to move either lower extremity. She states this was worked up emergently but found nothing. Her lower extremity function soon returned after the 1stsurgery. She states she has had a dependent headache since her 1st surgery that is worse when she is upright gets better if she is lying flat.3-8/10 VAS daily. Weakness, numbness and tingling in her L leg. Concerning symptoms of myelopathy -- clumsiness in her hands, clumsiness in her gait but no bowel nor bladder symptoms. She does have significant anxiety and a apprehension with rapid head movements. For PMHx, PSHx, medications, allergies, SOCHx, ROS and FAMHx, please refer to the scanned New patient Questionnaire PHYSICAL EXAM: General: AXOX3, mild distress. Lower extremities: She rises cautiously from a seated position. She walks with an extremely antalgic gait on the L side. Heel walking and toe walking is better on the R. tandem walking can not be tested secondary to her gait pattern. She gets on off the exam table cautiously. Positive straight leg raise on the L, negative straight leg raise on the R appears to be 5/5 throughout but with significant dysesthesias with any examination of her L lower extremity DTRs are hyperactive and equal in her knee jerk and ankle jerk and she has no clonus. Fairly full nontender range of motion bilateral hipsknees and ankles. Upper extremities: 5/5 throughout but decreased light touch to the tips of her fingers nondermatomally. Deep tendon reflexes are normoactive and equal in her biceps, triceps and brachioradialis; negative Bernie sign bilaterally. Full nontender range of motion bilateral shoulders elbows and wrists. Spine: Cervical spine range of motion is diminished in all planes secondary to subjective pain. Lumbar spine reveals a well-healed midline incision that is exquisitely tender and sensitive to touch INVESTIGATIONS: No available studies to you to day, she brings in a CD with multiple studies. IMPRESSION: 35yo female status post L5-S1 fusion with late I and D for a dural tear, significant L lower extremity dysesthesias, rule out cervical and thoracic myelopathy. PLAN: I told her it is very difficult to determine what is going on here. I told her I feel uncomfortable as her last surgery was literally less than 2 months ago. She adamantly does not want to follow up with her previous surgeon. Dr. Duran notified me specifically about her case. I told her I wouldtry to help her the best I could. We will start with MRIs of her barrios spine. She can have those done closer to home and we will call her on the phone with the next step in her treatment after we receive those studies. documented in this [id number] History of Present illness Narrative* Eloisa Beasley MD - 01/24/2025 4:14 AM EDT CONSULTED BY: Gale Duran MD CC: Neck pain with headaches, lower back pain and L leg misery HPI: 35yo female s/p L5-S1 decompression and fusion done 09/16/[address]24 at [place] [address] Dr Manrique, reexploration with repair of dural tear . Significant L leg misery before her 1st surgery. After her 1st surgery her L leg was significantly improved but after the 2nd operation her L lower extremity symptoms are worse than they were before the 1st surgery. Also complains of back pain. She statesafter her 2nd surgery she woke without the ability to move either lower extremity. She states this was worked up emergently but found nothing. Her lower extremity function soon returned after the 1stsurgery. She states she has had a dependent headache since her 1st surgery that is worse when she is upright gets better if she is lying flat.3-8/10 VAS daily. Weakness, numbness and tingling in her L leg. Concerning symptoms of myelopathy -- clumsiness in her hands, clumsiness in her gait but no bowel nor bladder symptoms. She does have significant anxiety and a apprehension with rapid head movements. For PMHx, PSHx, medications, allergies, SOCHx, ROS and FAMHx, please refer to the scanned New patient Questionnaire PHYSICAL EXAM: General: AXOX3, mild distress. Lower extremities: She rises cautiously from a seated position. She walks with an extremely antalgic gait on the L side. Heel walking and toe walking is better on the R. tandem walking can not be tested secondary to her gait pattern. She gets on off the exam table cautiously. Positive straight leg raise on the L, negative straight leg raise on the R appears to be 5/5 throughout but with significant dysesthesias with any examination of her L lower extremity DTRs are hyperactive and equal in her knee jerk and ankle jerk and she has no clonus. Fairly full nontender range of motion bilateral hipsknees and ankles. Upper extremities: 5/5 throughout but decreased light touch to the tips of her fingers nondermatomally. Deep tendon reflexes are normoactive and equal in her biceps, triceps and brachioradialis; negative Bernie sign bilaterally. Full nontender range of motion bilateral shoulders elbows and wrists. Spine: Cervical spine range of motion is diminished in all planes secondary to subjective pain. Lumbar spine reveals a well-healed midline incision that is exquisitely tender and sensitive to touch INVESTIGATIONS: No available studies to you to day, she brings in a CD with multiple studies. IMPRESSION: 35yo female status post L5-S1 fusion with late I and D for a dural tear, significant L lower extremity dysesthesias, rule out cervical and thoracic myelopathy. PLAN: I told her it is very difficult to determine what is going on here. I told her I feel uncomfortable as her last surgery was literally less than 2 months ago. She adamantly does not want to follow up with her previous surgeon. Dr. Duran notified me specifically about her case. I told her I wouldtry to help her the best I could. We will start with MRIs of her barrios spine. She can have those done closer to home and we will call her on the phone with the next step in her treatment after we receive those studies. documented in this [id number] History of Present illness Narrative* Brandee Carr RN - 12/04/2024 9:48 AM EDT Discharge teaching and instructions for diagnosis of complaints of weakness lower extremity completed with patient using teachback method. Patient voiced understanding regarding prescriptions, followup appointments, and care of self at home. Discharged in a wheelchair to home with support per family. AVS reviewed. Printed prescriptions given to patient. All questions answered and belongings sent with the patient. * Koko Earl PA-C - 12/04/2024 9:11 AM EDT Department of Orthopedic Surgery Spine Service Attending Progress Note Subjective: patient sitting up in bed. No CORCORAN. Patient is ready to go home Vitals VITALS: BP 128/79 Pulse 86 Temp 97.9 F (36.6 C) (Oral) Resp 16 Ht 1.524 m (5') Wt 65.3 kg(143 lb 15.4 oz) SpO2 100% BMI 28.12 kg/m 24HR INTAKE/OUTPUT: Intake/Output Summary (Last 24 hours) at 12/04/2024 0911 Last data filed at 12/04/2024 0410 Gross per 24 hour Intake 240 ml Output 840 ml Net -600 ml URINARY CATHETER OUTPUT (Bond): DRAIN/TUBE OUTPUT: Closed/Suction Drain Left;Midline Back-Output (ml): 90 ml PHYSICAL EXAM: Orientation: alert and oriented to person, place and time Incision: dressing in place, clean, dry, intact Drain - bloody drainage in Hemovac Lower Extremity Motor : able to bend and straighten legs in bed, able to pump ankles 3+-4/5 diffusely Lower Extremity Sensory: Intact L1-S1 per patient in lower legs LABS: HgB: Lab Results Component Value Date/Time HGB 9.9 12/04/2024 04:28 AM ASSESSMENT AND PLAN: Post operative day 2 status post exploration of lumbar wound with dura repair 1: Monitor drain output - no compression on drain 2: Patient now able to move LE and reports sensation is intact 3: Activity - as tolerated. PT/OT. 4: Pain Control: Good 5: Discharge Planning: today, family will manage drain Koko Earl PA-C * Magen Carmelina, PT - 12/03/2024 12:14 PM EDT [facility] INPATIENT PHYSICAL THERAPY EVALUATION [facility] 4A - 4A-14/014-A Discharge Recommendations: Continue to assess pending progress (Anticipate home with assistance as needed.) Equipment Recommendations: No Time In: 1208 Time Out: 1225 Timed Code Treatment Minutes: 9 Minutes Minutes: 17 Date: 12/03/2024 Patient Name: Doug Whiting, Gender: female : 1990 (34 y.o.) Referring Practitioner: Tammie Steele MD Diagnosis: Complaints of weakness of lower extremity Additional Pertinent Hx: Patient is a 34-year-old female who is status post L5- S1 decompression andfusion done 09/16/2024 at [place]. She was taken back to the OR today for a wound exploration afterbeing seen in office with complaints of intermittent headache. OR today revealed a durotomy that was repaired without complication. She was slow to wake up from anesthesia postoperatively but was having LE weakness with inability to feel her legs. CT head completed at [facility] that was negative. Patient transferred to [facility] For stat imaging of the brain and entire spine. Restrictions/Precautions: Restrictions/Precautions: Fall Risk Other Position/Activity Restrictions: recent dura repair, hemavac, states doctors concerned for POTS Subjective: Chart Reviewed: Yes Patient assessed for rehabilitation services?: Yes Subjective: Nurse approved session but stated she did not tolerate OT well and to return to flat ifheadache returns. Patient denied headache upon entry. Patient exhibits slow and delayed movements with encouragement to participate. Significant other in chair. Patient stated she wanted her catheterremoved and was ready to pull it out. Patient also unable to tolerate acitivity with return of headache when sitting/standing. Returned patient to flat position. Pain: 12/06: back pain; denied headache upon entering with HOB elevated slightly lying in (L) sidelying position; headache returned with positional changes along with nausea. Patient returned to supine Vitals: Vitals not assessed per clinical judgement, see nursing flowsheet Social/Functional History: Lives With: Significant other, Other (Comment) (kids 11,12) Type of Home: House Home Layout: One level Home Access: Stairs to enter with rails Entrance Stairs - Number of Steps: 3 Entrance Stairs - Rails: Both Home Equipment: Cane, Walker - Rolling Bathroom Shower/Tub: Tub/Shower unit (sits in shower) Bathroom Toilet: Standard Bathroom Equipment: None Prior Level of Assist for ADLs: Independent Prior Level of Assist for Homemaking: Independent Homemaking Responsibilities: Yes Prior Level of Assist for Transfers: Independent Has the patient had two or more falls in the past year or any fall with injury in the past year?: No 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 (has not been driving of late) Additional Comments: 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 until of recent due to increased pain and dura leak OBJECTIVE: Range of Motion: Bilateral Lower Extremity: WFL Strength: Not tested d/t intolerance to activity Balance: Static Sitting Balance: Supervision Static Standing Balance: Stand By Assistance Bed Mobility: Rolling to Left: Independent Rolling to Right: Independent Supine to Sit: Stand By Assistance Sit to Supine: Stand By Assistance Transfers: Sit to Stand: Stand By Assistance Stand to Sit:Stand By Assistance Ambulation: Stand By Assistance Distance: 1-2 steps on side of bed Surface: Level Tile Device: No Device Patient stood on side of bed, weight shifted and sidestepped d/t discomfort of catheter and headache, repositioned her fan to direct toward her face. Mostly nonverbal by choice. PT offered to help reposition fan or assist with positioning while educating patient importance of lying flat if headachewas returning. Stairs: Not Tested Exercise: None Functional Outcome Measures: [facility] (6 CLICK) BASIC MOBILITY AM-PAC Inpatient Mobility Raw Score : 16 AM-PAC Inpatient T-Scale Score : 40.78 Modified Coggon: Premorbid Functional Status: Not Applicable Current Functional Status: Not Applicable ASSESSMENT: Activity Tolerance: Patient tolerance of treatment:Poor. Treatment Initiated: Treatment and education initiated within context of evaluation. Evaluation time included review of current medical information, gathering information related to past medical, social and functional history, completion of standardized testing, formal and informal observation of tasks, assessment of data and development of plan of care and goals. Treatment time included skilled education and facilitation of tasks to increase safety and independence with functional mobility forimproved independence and quality of life. Assessment: Body Structures, Functions, Activity Limitations Requiring Skilled Therapeutic Intervention: Decreased functional mobility , Decreased strength, Decreased balance, Decreased endurance, Increased pain, Decreased posture, Decreased safe awareness, Decreased cognition Assessment: Doug Whiting is a 34 y.o. female that presents with intolerance to upright activitywith return of headache, impulsive. Pt demonstrates a decrease in baseline by way of bed mobility, transfers and ambulation secondary to decreased activity tolerance, strength, fatigue, and balance deficits. Pt will benefit from skilled PT services throughout admission and beyond hospital dischargefor improvements in functional mobility and in order to decrease fall risk and return pt to PLOF. Therapy Prognosis: Good Requires PT Follow-Up: Yes Patient Education: Patient Education Education Given To: Patient Education Provided: Mobility Training, Precautions Education Method: Verbal Barriers to Learning: Readiness to Learn Education Outcome: Continued education needed Plan: Current Treatment Recommendations: Strengthening, Balance training, Functional mobility training, Transfer training, Endurance training, Gait training, Stair training, Neuromuscular re-education, Home exercise program, Safety education & training, Therapeutic activities General Plan: (5x O) Goals: Patient Goals : None stated Short Term Goals Time Frame for Short Term Goals: by discharge Short Term Goal 1: Patient to sit <>supine (I)ly with log rolling technique with bed flat andwithout railing. Short Term Goal 2: Patient to sit<>stand with (I) with appropriate AD. Short Term Goal 3: Patient to ambulate >200 feet with least restrictive AD with (I). Short Term Goal 4: Patient to ascend/descend 3 steps with (B) rail simulated to home entry. Trouble Locater Goals Time Frame for Mcfp Goals : n/a due to short LOS Following session, patient left in safe position in bed, with alarm, and call light within reach * Socorro Balderas, OT - 12/03/2024 10:19 AM EDT [facility] INPATIENT OCCUPATIONAL THERAPY [facility] 4A EVALUATION Discharge Recommendations: Continue to assess pending progress, 24 hour supervision or assist Equipment Recommendations: No continue to monitor Time In: 1019 Time Out: 1040 Timed Code Treatment Minutes: 11 Minutes Minutes: 21 Date: 12/03/2024 Patient Name: Doug Whiting, Gender: female : 1990 (34 y.o.) Referring Practitioner: Tammie Steele MD Diagnosis: Complaints of weakness of lower extremity Additional Pertinent Hx: Patient is a 34-year-old female who is status post L5- S1 decompression andfusion done 09/16/2024 at [place]. She was taken back to the OR today for a wound exploration afterbeing seen in office with complaints of intermittent headache. OR today revealed a durotomy that was repaired without complication. She was slow to wake up from anesthesia postoperatively but was having LE weakness with inability to feel her legs. CT head completed at [place] that was negative. Patient transferred to [facility] For stat imaging of the brain and entire spine. MRIs currently pending. Restrictions/Precautions: Restrictions/Precautions: Fall Risk Position Activity Restriction Other Position/Activity Restrictions: recent dura repain, hemavac, states doctors concerned for POTS Subjective Chart Reviewed: Yes, Orders, Progress Notes, History and Physical, Operative Notes, Imaging Patient assessed for rehabilitation services?: Yes Family / Caregiver Present: Yes (spouse) Subjective: RN approved OT session, per Bj Sunshine note Activity - as tolerated. PT/OT. If works okay with therapy, okay to remove bond If develops a severe headache when up return to flat. . patient asleep laying falt, mod encouargement to engage in session. Patient states her doctor has beenconcerned from POTS but has not had any formal evaluations completed at this time. lethargic throughout with minimal participation noted Pain: 4-5/10: headache and back pain. Unclear if patient pain increased with activity Vitals: Heart Rate: 70-108 Social/Functional History: Lives With: Significant other, Other (Comment) (kids 11,12) Type of Home: House Home Layout: One level Home Access: Stairs to enter with rails Entrance Stairs - Number of Steps: 3 Home Equipment: Cane Bathroom Shower/Tub: Tub/Shower unit (sits in shower) Bathroom Toilet: Standard Bathroom Equipment: None Prior Level of Assist for ADLs: Independent Prior Level of Assist for Homemaking: Independent Homemaking Responsibilities: Yes Prior Level of Assist for Transfers: Independent Has the patient had two or more falls in the past year or any fall with injury in the past year?: No 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 Patient laying in bed with gown donned but off each arm, when sitting on EOB patient required assistance for management of gown . IADL: Not Tested BALANCE: Sitting Balance: Contact Guard Assistance, X 1. Standing Balance: Contact Guard Assistance, X 1. With occasional min assistance due to patient laying self back down quickly stating, I feel like I am going to pass out BED MOBILITY: Rolling to Right: Stand By Assistance Supine to Sit: Stand By Assistance Sit to Supine: Stand By Assistance Scooting: Stand By Assistance TRANSFERS: Sit to Stand: Contact Guard Assistance, X 1. Patient impulsive and standing self up with therapist requesting patient to remain seated due to feeling dizzy Stand to Sit: Contact Guard Assistance. FUNCTIONAL MOBILITY: Assistive Device: hand in hand Assistance provided: min assistance Distance: side step towards HOB x4 then patient quickly laid self back down due to feeling lightheaded. Activity Tolerance: Patient tolerance of treatment: Fair treatment tolerance Functional Outcome Measures: AM-PAC Inpatient Daily Activity Raw Score: 18 Modified Coggon: Premorbid Functional Status: Not Applicable Current Functional Status: Not Applicable Education: Learners: Patient Plan of Care, Role of OT,ADL's, Precautions: review of BLT, Home Safety, Importance of Increasing Activity, Fall Prevention, Assistive Device Safety, OT POC, Role of OT, and Education Related to Potential Risks and Complications Due to Impairment/Illness/Injury Assessment: Assessment: Doug Whiting is a 34 y.o. female that presents with below new performance deficits secondary to complaints of weakness of lower extremity. Pt is requiring increased assistance for ADLs, functional mobility, ADL transfers compared to baseline level of function. Skilled OT services iswarranted to improve below performance deficits and progress pt towards PLOF. Without OT pt is at risk for falls, further decline in functional abilities, increased caregiver burden, increased risk for medical complication as a result of reduce mobility and inability to return to prior level of living. Performance deficits / Impairments: Decreased functional mobility , Decreased strength, Decreased endurance, Decreased ADL status, Decreased safe awareness, Decreased high-level IADLs, Decreased balance REQUIRES OT FOLLOW-UP: Yes Treatment Initiated: Treatment and education initiated within context of evaluation. Evaluation time included review of current medical information, gathering information related to past medical, social and functional history, completion of standardized testing, formal and informal observation of tasks, assessment of data and development of plan of care and goals. Treatment time included skilled education and facilitation of tasks to increase safety and independence with ADL's for improved functional independence and quality of life. Plan: Times Per Week: 5x Current Treatment Recommendations: Strengthening, Balance training, Functional mobility training, Endurance training, Safety education & training, Pain management, Patient/Caregiver education & training, Equipment evaluation, education, & procurement, Self-Care / ADL. See long-term goaltime frame for expected duration of plan of care. If no long-term goals established, a short lengthof stay is anticipated. Goals: Patient goals : return back home Short Term Goals Time Frame for Short Term Goals: until discharge Short Term Goal 1: Patient will complete full BADL routine with supervision and use of LHAE prn Short Term Goal 2: Patient will improve dynamic standing 10-15 minutes with supervision in prep forsink side grooming Short Term Goal 3: Patient will improve functional ambulation to household distances with supervision and LRAD and no LOB Mcfp Goals Time Frame for Trouble Locater Goals : None due to ELOS AM-PAC Inpatient Daily Activity Raw Score: 18 AM-PAC Inpatient ADL T-Scale Score : 38.66 Following session, patient left in safe position in bed, with alarm, and call light within reach * Bj Sunshine PA - 12/03/2024 10:03 AM EDT Department of Orthopedic Surgery Spine Service Attending Progress Note Subjective: patient sleeping in bed, now able to move LE with sensation Slight headache with laying flat MRI C/T/L and brain without contrast reviewed with Dr. Steele, no acute findings Vitals VITALS: BP 107/81 Pulse 58 Temp 98.2 F (36.8 C) (Oral) Resp 16 Ht 1.524 m (5') Wt 65.3 kg(143 lb 15.4 oz) SpO2 100% BMI 28.12 kg/m 24HR INTAKE/OUTPUT: Intake/Output Summary (Last 24 hours) at 12/03/2024 1003 Last data filed at 12/03/2024 0545 Gross per 24 hour Intake -- Output 650 ml Net -650 ml URINARY CATHETER OUTPUT (Bond): DRAIN/TUBE OUTPUT: Closed/Suction Drain Left;Midline Back-Output (ml): 150 ml PHYSICAL EXAM: Orientation: alert and oriented to person, place and time Incision: dressing in place, clean, dry, intact Drain - bloody drainage in Hemovac Lower Extremity Motor : able to bend and straighten legs in bed, able to pump ankles 3+-4/5 diffusely Lower Extremity Sensory: Intact L1-S1 per patient in lower legs LABS: HgB: No results found for: HGB ASSESSMENT AND PLAN: Post operative day 1 status post exploration of lumbar wound with dura repair 1: Monitor drain output - no compression on drain 2: Patient now able to move LE and reports sensation is intact 3: Activity - as tolerated. PT/OT. If works okay with therapy, okay to remove bond If develops a severe headache when up return to flat. Consider neuro consult pending clinical course 4: Pain Control: Good 5: Discharge Planning: Pending DEX Malhotra * Betsy Hardin RN - 12/03/2024 1:08 AM EDT Patient admitted to Room 14 via direct admit Complaint upon arrival to the room weakness Vital signs obtained. Assessment and data collection initiated. Oriented to room. Policies and procedures for explained All questions answered with no further questions at this time. Fall prevention and safety brochure discussed with patient. 2 person skin check completed. [facility] Discharge instructions* Discharge Instructions* Brandee Carr RN - 12/04/2024 9:13 AM EDT Keep drain decompressed. Empty drain every 24 hours. Remove drain if less than 150 ml. Follow up appointment with Dr. Manrique as previously scheduled [facility] History of Present illness Narrative* Jose Kim MD - 07/14/2024 2:10 PM EST Images from the original note were not included. To: STIVEN DURAN MD HPI: Doug Whiting is a 34 y.o. female with past medical history significant for chronic back pain. The patient states over the last two w eeks she has noted worsening back pain as well as coolness anddiscoloration in her right thigh. She presented to the emergency room last week for evaluation. MRIshowed L5 and S1 disc disease. An arterial [...] Inhale 2 puffs in the morning and 2puffs before bedtime. lidocaine (LIDODERM) 5 % Place 1 patch on the skin daily. Remove & Discard patch within 12 hours or as directed by MD 30 patch 0 tiZANidine (ZANAFLEX) 4 mg tablet Take 1 tablet (4 mg total) by mouth every 6 (six) hours as neededfor muscle spasms. 30 tablet 0 ferrous sulfate 325 (65 FE) mg tablet Take 325 mg by mouth 2 (two) times a day with meals. (Patientnot taking: Reported on 06/22/2024) No current facility-administered [...] Kim MD, PRINCESS, RPVI, FSVS, FACS [facility] This note was created with the assistance of a speech recognition program. While intending to generate a timely document that accurately reflects the content of the visit, no guarantee can be provided that every grammatical or spelling mistake has been or will be identified or corrected. Thank you for your understanding. documented in this encounterProMedica Health [id number] Evaluation + Plan note* Assessment & Plan Note - Jose Kim MD - 07/14/2024 1:49 PM EST Associated Problem(s): Neurogenic claudication No evidence of significant peripheral arterial disease. Recommend evaluation and management by neuro spine. She is planned to have procedure. [facility]01-16-[facility] Miscellaneous Notes* Assessment & Plan Note - Jose Kim MD - 07/14/2024 1:49 PM ESTAssociated Problem(s): Neurogenic claudication No evidence of significant peripheral arterial disease. Recommend evaluation and management by neuro spine. She is planned to have procedure. documented in this [facility]Select [facility] History of Present illness Narrative* Renea Gonzalez MD - 06/27/2024 3:00 PM EST Images from the original note were not included. [address] [id number] Subjective: Patient ID: Doug Whiting is a 34 y.o. female. Chief Complaint Chief Complaint Patient presents with Leg Pain New patient referral- pt complains of pain in back, bilateral legs and hips, states is worse on theright. Says right foot will turn purple at [...] inhaler, Inhale 2 puffs every 6 (six) hoursas needed for wheezing., Disp: , Rfl: budesonide-formoteroL [...] past medical history, past social history, past surgicalhistory and problem list. Review of Systems: Review [...] corrected. Thank you for your understanding. Renea Gonzalez MD documented in this [facility]Select [facility] [facility] Nurse Note* Desirae Medina LPN - 06/22/2024 1:07 PM EST Patient IV has been removed. Patient educated and has no questions or concerns. [facility]12[facility]25-[facility] Nurse Note* Desirae Medina LPN - 06/22/2024 1:07 PM EST Patient IV has been removed. Patient educated and has no questions or concerns. documented in this encounterSelect [facility]12-[facility]-2024 Plan of care note * Plan of Care - Ynes Guerra RN - 06/22/2024 12:51 PM EST Problem: Pain Goal: Patient goal is pain score less than 4, able to rest, and participant in treatment plan as appropriate Description: INTERVENTIONS: 1. Encourage patient or legal customer counter representative to report early pain and ask [...] per policy 9. Teach patient or legal customer counter representative interventions for comforting Outcome: Adequate for [...] at the bedside 7. Instruct patient/ patient customer counter representative about use of safety devices 8. Include patient/ patient customer counter representative in decisions related to safety Outcome: [...] hygiene technique. 7. Identify and instruct patient/patient customer counter representative in use of appropriate isolation precautionsfor identified infection/symptoms. 8. Provide and discuss with patient/patient customer counter representative on educational MDRO sheet. 9. Encourage and monitor nutritional status daily and consult wind farm operations manager if indicated. 10. Implement neutropenic guidelines as needed. Outcome: Adequate for Discharge Problem: Knowledge Deficit Goal: Patient/patient customer counter representative demonstrates understanding of disease process, treatment plan,medications, and discharge instructions Description: INTERVENTIONS 1. Complete [...] Score of =/> 25 or indicated by [facility] Assessment Goal: Patient should be free from fall Description: Interventions: 1. Lambert to environment 2. Hourly rounds addressing the [...] non-skid footwear 11. Teach patient and patient customer counter representative to maintain environment for safety and [...] (cane, walker) within reach 19. Request patient customer counter representative bring adaptive equipment/mobility aids from home or obtain and provide as needed 20. Consult pharmacy regarding effects of med's affecting mobility, cognition, and alternatives 21. Obtain physician order for PT if risk factors associated with mobility are present 22. Obtain physician order for OT as appropriate 23. Utilize diversional activities 24. Educate patient and patient customer counter representative how to maintain a safe environment during visitationtimes (notify nurse prior to leaving bedside) 25. Consider appropriateness of medical or non-medical art therapist 26. Set up voiding schedule as [...] pt experiencing intermittent numbness/tingling in RLE. WCTM. [facility]12-25-[facility] Miscellaneous Notes* Plan of Care - Ynes Guerra RN - 06/22/2024 12:51 PM EST Problem: Pain Goal: Patient goal is pain score less than 4, able to rest, and participant in treatment plan as appropriate Description: INTERVENTIONS: 1. Encourage patient or legal customer counter representative to report early pain and ask [...] per policy 9. Teach patient or legal customer counter representative interventions for comforting Outcome: Adequate for [...] at the bedside 7. Instruct patient/ patient customer counter representative about use of safety devices 8. Include patient/ patient customer counter representative in decisions related to safety Outcome: [...] hygiene technique. 7. Identify and instruct patient/patient customer counter representative in use of appropriate isolation precautionsfor identified infection/symptoms. 8. Provide and discuss with patient/patient customer counter representative on educational MDRO sheet. 9. Encourage and monitor nutritional status daily and consult wind farm operations manager if indicated. 10. Implement neutropenic guidelines as needed. Outcome: Adequate for Discharge Problem: Knowledge Deficit Goal: Patient/patient customer counter representative demonstrates understanding of disease process, treatment plan,medications, and discharge instructions Description: INTERVENTIONS 1. Complete [...] Score of =/> 25 or indicated by [facility] Assessment Goal: Patient should be free from fall Description: Interventions: 1. Lambert to environment 2. Hourly rounds addressing the [...] non-skid footwear 11. Teach patient and patient customer counter representative to maintain environment for safety and [...] (cane, walker) within reach 19. Request patient customer counter representative bring adaptive equipment/mobility aids from home or obtain and provide as needed 20. Consult pharmacy regarding effects of med's affecting mobility, cognition, and alternatives 21. Obtain physician order for PT if risk factors associated with mobility are present 22. Obtain physician order for OT as appropriate 23. Utilize diversional activities 24. Educate patient and patient customer counter representative how to maintain a safe environment during visitationtimes (notify nurse prior to leaving bedside) 25. Consider appropriateness of medical or non-medical art therapist 26. Set up voiding schedule as [...] pt experiencing intermittent numbness/tingling in RLE. WCTM. * Plan of Care - Ynes Guerra RN - 06/22/2024 7:45 AM EST Problem: Neurosensory - Adult Goal: Achieves stable [...] pt experiencing intermittent numbness/tingling in RLE. WCTM. * Plan of Care - Desirae Medina LPN - 06/22/2024 7:42 AM EST Problem: Safety Goal: Patient will be injury free during hospitalization Description: INTERVENTIONS: 1. Assess patient's risk for falls and implement fall prevention plan of care per policy 2. Provide and maintain a safe environment 3. Proper use of double Identifiers 4. Medication administration using the 5 rights 5. Hand hygiene 6. Specimens are labeled at the bedside 7. Instruct patient/ patient customer counter representative about use of safety devices 8. Include patient/ patient customer counter representative in decisions related to safety Outcome: Progressing Note: Evaluation of progress towards goal: Pt is free from falls. Bed is in lowest position and brakes are locked. Proper identification is used. Problem: Knowledge Deficit Goal: Patient/patient customer counter representative demonstrates understanding of disease process, treatment plan,medications, and discharge instructions Description: INTERVENTIONS 1. Complete learning assessment and assess knowledge base 2. Provide teaching at level of understanding 3. Provide teaching via preferred learning method(s) Outcome: Progressing Note: Evaluation of progress towards goal: Pt updated on changes in care. Providing teaching to patient Problem: Moderate - High Risk Fall Score Description: [place] Fall Score of =/> 25 or indicated by [facility] Assessment Goal: Patient should be free from fall Description: Interventions: 1. Lambert to environment 2. Hourly rounds addressing the [...] non-skid footwear 11. Teach patient and patient customer counter representative to maintain environment for safety and [...] (cane, walker) within reach 19. Request patient customer counter representative bring adaptive equipment/mobility aids from home or obtain and provide as needed 20. Consult pharmacy regarding effects of med's affecting mobility, cognition, and alternatives 21. Obtain physician order for PT if risk factors associated with mobility are present 22. Obtain physician order for OT as appropriate 23. Utilize diversional activities 24. Educate patient and patient customer counter representative how to maintain a safe environment during visitationtimes (notify nurse prior to leaving bedside) 25. Consider appropriateness of medical or non-medical art therapist 26. Set up voiding schedule as appropriate (every 2 hours) Outcome: Progressing Note: Evaluation of progress towards goal: Pt educated on Fall Risk . Pt has non-slip socks on, 2 side rails up, up with assist. * Plan of Care - Valerie Dee RN - 06/22/2024 6:14 AM EST Problem: Pain Goal: Patient goal is pain score less than 4, able to rest, and participant in treatment plan as appropriate Description: INTERVENTIONS: 1. Encourage patient or legal customer counter representative to report early pain and ask [...] per policy 9. Teach patient or legal customer counter representative interventions for comforting Outcome: Progressing Note: [...] at the bedside 7. Instruct patient/ patient customer counter representative about use of safety devices 8. Include patient/ patient customer counter representative in decisions related to safety Outcome: [...] hygiene technique. 7. Identify and instruct patient/patient customer counter representative in use of appropriate isolation precautionsfor identified infection/symptoms. 8. Provide and discuss with patient/patient customer counter representative on educational MDRO sheet. 9. Encourage and monitor nutritional status daily and consult wind farm operations manager if indicated. 10. Implement neutropenic guidelines as needed. Outcome: Progressing Note: Evaluation of progress towards goal: Problem: Moderate - High Risk Fall Score Description: [place] Fall Score of =/> 25 or indicated by [facility] Assessment Goal: Patient should be free from fall Description: Interventions: 1. Lambert to environment 2. Hourly rounds addressing the [...] non-skid footwear 11. Teach patient and patient customer counter representative to maintain environment for safety and [...] (cane, walker) within reach 19. Request patient customer counter representative bring adaptive equipment/mobility aids from home or obtain and provide as needed 20. Consult pharmacy regarding effects of med's affecting mobility, cognition, and alternatives 21. Obtain physician order for PT if risk factors associated with mobility are present 22. Obtain physician order for OT as appropriate 23. Utilize diversional activities 24. Educate patient and patient customer counter representative how to maintain a safe environment during visitationtimes (notify nurse prior to leaving bedside) 25. Consider appropriateness of medical or non-medical art therapist 26. Set up voiding schedule as [...] of progress towards goal: documented in this encounter[facility] Hospital course Narrative* Cami Martinez PA-C - 06/22/2024 12:08 PM EST Images from the original note were not included. ED Observation Discharge Summary BRIEF OVERVIEW Admitting Provider: Delfino Harmon DO Discharge Provider: CAMI MARTINEZ PA-C Primary Care Physician: STIVEN DURAN MD [phone] Observation Services End Date and Time: No [...] of foot changing colors on and off, andgradual worsening of symptoms especially over the past [...] evaluation treatment. Patient was initially seen in [place] [facility], transferred to [facility], and placed in ED observation for MRI/further evaluation. Patient currently is not having any color changes to her foot. Patient is feeling somewhat better, but continues to declined any significant paintreatment at this time. Patient had CT scan performed at [facility] that showed a bulging disc L5 but otherwise no signs of acute abnormality. Patient denies any other areas of injury or other concerns at this time. MRI lumbar spine demonstrated: Subtle grade 1 anterolisthesis L5 on S1, posterior wedging morphology of L5. Nonacute L5 pars defects. No high-grade thecal sac or neural frontal stenosis. Neurosurgerywas consulted, recommended multimodal pain control, planning for [...] with new, worse, worrisome concerns. Patient voiced und erstanding and was agreeable to the plan of [...] and oriented to person, place, and time. [place] Coma Scale Eyes 4. Verbal 5. Motor 6. [place] Coma Total 15 Skin: Skin is warm and dry. She is not diaphoretic. Primary Discharge Diagnosis: Back pain Discharge Disposition: Home Discharge Condition: good Discharge Plan: Active Issues Requiring Follow Up: Issue: Diagnoses described above What is Needed: close outpatient follow up within 3 days, return precautions given to return to theED immediately for any worsening symptoms No future [...] Your Medications These medications were sent to [facility]/pharmacy #[id number] AT [address] OF [address] [address] gabapentin 300 mg capsule lidocaine 5 % [...] for the management plan. Cosigned by Delfino Harmon DO at 06/22/2024 12:39 PM EST Associated attestation - Delfino Harmon DO - 06/22/2024 12:39 PM EST Images [...] will pursue inpatient stay. documented in this encounterSelect [facility]12-[facility]-2024 Plan of care note * Plan of Care - Ynes Guerra RN - 06/22/2024 7:45 AM EST Problem: Neurosensory - Adult Goal: Achieves stable [...] pt experiencing intermittent numbness/tingling in RLE. WCTM. [facility]12-25-2024 Plan of care note* Plan of Care - Desirae Medina LPN - 06/22/2024 7:42 AM EST Problem: Safety Goal: Patient will be injury free during hospitalization Description: INTERVENTIONS: 1. Assess patient's risk for falls and implement fall prevention plan of care per policy 2. Provide and maintain a safe environment 3. Proper use of double Identifiers 4. Medication administration using the 5 rights 5. Hand hygiene 6. Specimens are labeled at the bedside 7. Instruct patient/ patient customer counter representative about use of safety devices 8. Include patient/ patient customer counter representative in decisions related to safety Outcome: Progressing Note: Evaluation of progress towards goal: Pt is free from falls. Bed is in lowest position and brakes are locked. Proper identification is used. Problem: Knowledge Deficit Goal: Patient/patient customer counter representative demonstrates understanding of disease process, treatment plan,medications, and discharge instructions Description: INTERVENTIONS 1. Complete [...] be free from fall Description: Interventions: 1. Lambert to environment 2. Hourly rounds addressing the [...] non-skid footwear 11. Teach patient and patient customer counter representative to maintain environment for safety and [...] (cane, walker) within reach 19. Request patient customer counter representative bring adaptive equipment/mobility aids from home or obtain and provide as needed 20. Consult pharmacy regarding effects of med's affecting mobility, cognition, and alternatives 21. Obtain physician order for PT if risk factors associated with mobility are present 22. Obtain physician order for OT as appropriate 23. Utilize diversional activities 24. Educate patient and patient customer counter representative how to maintain a safe environment during visitationtimes (notify nurse prior to leaving bedside) 25. Consider appropriateness of medical or non-medical art therapist 26. Set up voiding schedule as appropriate (every 2 hours) Outcome: Progressing Note: Evaluation of progress towards goal: Pt educated on Fall Risk . Pt has non-slip socks on, 2 side rails up, up with assist. [employer]12-25-2024 History and physical note* Delfino Harmon DO - 06/22/2024 6:32 AM EST Images from the original note were not included. ED Observation History and Physical Note PROVIDERS: Primary Care Physician: STIVEN DURAN MD [phone] Admitting Provider: Delfino Harmon CARE START TIMES: ED Date: 06/22/2024 0013 Obs date: 06/22/2024 0301 CHIEF COMPLAINT: Chief Complaint Patient presents with Back Pain PROBLEM: Principal Problem: Back pain HISTORY OF PRESENT ILLNESS: 34-year-old female with history of anemia, asthma presenting to the emergency department with reports of right-sided back pain, leg weakness, numbness, reports of foot changing colors on and off, andgradual worsening of symptoms especially over the past [...] evaluation treatment. Patient was initially seen in [place] [facility], transferred to [facility], and placed in ED observation for MRI/further evaluation. Patient currently is not having any color changes to her foot. Patient is feeling somewhat better, but continues to declined any significant paintreatment at this time. Patient had CT scan performed at [facility] that showed a bulging disc [...] Inhale 2 puffs in the morning and 2puffs before bedtime. Past Week CEPHalexin (KEFLEX) 500 mg capsule Take 500 mg by mouth 2 (two) times a day. (Patient not taking: Reported on 04/12/2024) Unknown ferrous sulfate 325 (65 FE) mg tablet Take 325 mg by mouth 2 (two) times a day with meals. (Patientnot taking: Reported on 06/22/2024) Unknown methocarbamoL (ROBAXIN) [...] to person, place, and time. She appears well- developed and well-nourished. No distress. Nursing note and [...] range of motion of the lumbar spine inflexion extension due to pain, tenderness to paraspinal/midline [...] The case was discussed with the following executive search consultant teams. Consulting Providers Provider Service Specialty [...] Code Status Information Code Status Full Code [employer]12-25-2024 History and physical note* Delfino Harmon DO - 06/22/2024 6:32 AM EST Images from the original note were not included. ED Observation History and Physical Note PROVIDERS: Primary Care Physician: STIVEN DURAN MD [phone] Admitting Provider: Delfino Harmon DO CARE START TIMES: ED Date: 06/22/2024 0013 Obs date: 06/22/2024 0301 CHIEF COMPLAINT: Chief Complaint Patient presents with Back Pain PROBLEM: Principal Problem: Back pain HISTORY OF PRESENT ILLNESS: 34-year-old female with history of anemia, asthma presenting to the emergency department with reports of right-sided back pain, leg weakness, numbness, reports of foot changing colors on and off, andgradual worsening of symptoms especially over the past [...] evaluation treatment. Patient was initially seen in [place] [facility], transferred to [facility], and placed in ED observation for MRI/further evaluation. Patient currently is not having any color changes to her foot. Patient is feeling somewhat better, but continues to declined any significant paintreatment at this time. Patient had CT scan performed at [facility] that showed a bulging disc [...] Inhale 2 puffs in the morning and 2puffs before bedtime. Past Week CEPHalexin (KEFLEX) 500 mg capsule Take 500 mg by mouth 2 (two) times a day. (Patient not taking: Reported on 04/12/2024) Unknown ferrous sulfate 325 (65 FE) mg tablet Take 325 mg by mouth 2 (two) times a day with meals. (Patientnot taking: Reported on 06/22/2024) Unknown methocarbamoL (ROBAXIN) [...] to person, place, and time. She appears well- developed and well-nourished. No distress. Nursing note and [...] range of motion of the lumbar spine inflexion extension due to pain, tenderness to paraspinal/midline [...] The case was discussed with the following executive search consultant teams. Consulting Providers Provider Service Specialty [...] Code Status Full Code documented in this encounterOhioHealth Nelsonville Health CenterQuiet Logistics Memorial [id number] Plan of care note * Plan of Care - Valerie Dee RN - 06/22/2024 6:14 AM EST Problem: Pain Goal: Patient goal is pain score less than 4, able to rest, and participant in treatment plan as appropriate Description: INTERVENTIONS: 1. Encourage patient or legal customer counter representative to report early pain and ask [...] per policy 9. Teach patient or legal customer counter representative interventions for comforting Outcome: Progressing Note: [...] at the bedside 7. Instruct patient/ patient customer counter representative about use of safety devices 8. Include patient/ patient customer counter representative in decisions related to safety Outcome: [...] hygiene technique. 7. Identify and instruct patient/patient customer counter representative in use of appropriate isolation precautionsfor identified infection/symptoms. 8. Provide and discuss with patient/patient customer counter representative on educational MDRO sheet. 9. Encourage and monitor nutritional status daily and consult wind farm operations manager if indicated. 10. Implement neutropenic guidelines as needed. Outcome: Progressing Note: Evaluation of progress towards goal: Problem: Moderate - High Risk Fall Score Description: [place] Fall Score of =/> 25 or indicated by [facility] Assessment Goal: Patient should be free from fall Description: Interventions: 1. Lambert to environment 2. Hourly rounds addressing the [...] non-skid footwear 11. Teach patient and patient customer counter representative to maintain environment for safety and [...] (cane, walker) within reach 19. Request patient customer counter representative bring adaptive equipment/mobility aids from home or obtain and provide as needed 20. Consult pharmacy regarding effects of med's affecting mobility, cognition, and alternatives 21. Obtain physician order for PT if risk factors associated with mobility are present 22. Obtain physician order for OT as appropriate 23. Utilize diversional activities 24. Educate patient and patient customer counter representative how to maintain a safe environment during visitationtimes (notify nurse prior to leaving bedside) 25. Consider appropriateness of medical or non-medical art therapist 26. Set up voiding schedule as [...] Progressing Note: Evaluation of progress towards goal: [id number] [facility] department Triage note* Fabián Matthews RN - 06/22/2024 12:36 AM EST Patient presented to [place] ER due to losing muscle mass in her Rt buttock and RLE turning purple along with shaking. [facility] [id number] Emergency department Note* Fabián Matthews RN - 06/22/2024 12:36 AM EST Patient presented to [place] ER due to losing muscle mass in her Rt buttock and RLE turning purple along with shaking. documented in this encounterSelect [facility]02-08-2022 NoteChief Complaint consultation for RUQ pain HPI Staff 31 year old female presents on consultation from Dr. Duran for RUQ/epigastric pain with heaviness feeling in RUQ. Reports pain since March. Intermittent nausea and vomiting. Food triggers include ground beef, broccoli, spicy foods and alcohol. RUQ US completed 05/01/21-unremarkable. CT ABD /9/21- unremarkable. Levsin QID, not helpful. Taking Pantoprazole 40mg [...] no wt loss; no recent NSAID or asause; no medication changes; has had chronic intermittent [...] swallowing difficulties, no hearing loss, no ear infection(s),no nose bleeds. Cardiovascular: normal blood pressure, no [...] with adapter, 2 puf (more content not included)...[facility] HospitalComment on above:Result Comment: Electronically Signed By: POPPY VALDEZ, Fred Jain\Date and Time Signed: 08/06/21 15:12 ESTEvaluation note* Diagnosis Back pain- Primary Unspecified backache Back pain Unspecified backache Atrophy of muscle of right thigh Muscle wasting Muscular wasting and disuse atrophy, not elsewhere classified Trouble walking Difficulty in walking [facility] Back pain Unspecified backache Atrophy of muscle of right thigh [facility]* Diagnosis Neurogenic claudication- Primary Spinal stenosis of lumbar region [facility]* Diagnosis Complaints of weakness of lower extremity- Primary [facility] Diagnosis Failed back surgical syndrome- Primary Other unspecified back disorder [facility] Diagnosis Failed back surgical syndrome Other unspecified back disorder [facility]* Diagnosis Failed back surgical syndrome Other unspecified back disorder Failed back surgical syndrome Other unspecified back disorder [facility] Diagnosis Failed back surgical syndrome Other unspecified back disorder [facility] Diagnosis Failed back surgical syndrome- Primary Other unspecified back disorder [facility] Diagnosis Failed back surgical syndrome- Primary Other unspecified back disorder Failed back surgical syndrome- Primary Other unspecified back disorder [facility]* Diagnosis Failed back surgical syndrome- Primary Other unspecified back disorder Failed back surgical syndrome- Primary Other unspecified back disorder Failed back surgical syndrome Other unspecified back disorder [facility] Diagnosis Failed back surgical syndrome- Primary Other unspecified back disorder Failed back surgical syndrome- Primary Other unspecified back disorder Failed back surgical syndrome Other unspecified back disorder [facility]* Diagnosis Failed back surgical syndrome- Primary Other unspecified back disorder Preop testing- Primary Preoperative examination, unspecified Body mass index (BMI) 22.0-22.9, adult Failed back surgical syndrome Other unspecified back disorder [facility]* Diagnosis Failed back surgical syndrome- Primary Other unspecified back disorder Preop cardiovascular exam- Primary Pre-operative cardiovascular examination Failed back surgical syndrome Other unspecified back disorder [facility]* Attachments The following attachments cannot be sent through Care Everywhere. * Upper Back Pain Discharge Instructions (Polish) documented in this encounterProC[facility] SystemInstructionsNot on file documented in this encounterProFayette Medical Center [employer] SystemInstructionsNot on file documented in this encounterProSt. Rita'S HospitalReason for visit Narrative* Auth/CertSpecialtyDiagnoses / ProceduresReferred By ContactReferred To Contact Diagnoses Status post lumbar spine operation Tammie Steele MD [address] [place] [address] Phone: tel: fax: [facility] [address] [place] [address] Referral IDStatusReasonStart DateExpiration DateVisits RequestedVisits [id number] [facility] for visit Narrative* Diagnostic X-Ray (Routine) - ClosedSpecialtyDiagnoses / ProceduresReferred By ContactReferred To Contact Radiology Diagnoses Failed back surgical syndrome Procedures CT NEURO IMAGE IMPORT(ERIC) DOWNLOAD POWERSHARE IMAGES TO Eloisa Briceño MD [address] [place] [address] Phone: tel: fax: [facility] [address] [place] [address] Phone: tel: Referral IDStatusReasonStart DateExpiration DateVisits RequestedVisits [id number]/31/20257/ [facility] for visit Narrative* MRI/CAT Scan (Urgent) - Pending Review SpecialtyDiagnoses / ProceduresReferred By ContactReferred To ContactRadiology Diagnoses Failed back surgical syndrome Procedures MR L-SPINE W/O Eloisa Beasley MD [address] [place] [address] Phone: tel: fax: [facility] [address] [place] [address] Phone: tel: Referral IDStatusReasonStart DateExpiration DateVisits RequestedVisits [id number] Review/ [facility] for visit Narrative* Service Level Authorization (Routine) - ClosedSpecialtyDiagnoses / ProceduresReferred By ContactReferred To Contact Anesthesiology Diagnoses Failed back surgical syndrome Eloisa Beasley MD [address] [place] [address] Phone: tel: fax: [facility] PRE [facility]MISSION [facility] [address] [place] [address] Phone: tel: Referral IDStatusReasonStart DateExpiration DateVisits RequestedVisits [id number]/24/20259/ [facility] Summary Purpose Family History No Family History Records FoundNo Family History Records FoundNo Family History Records FoundNo Family History Records FoundNo Family History Records FoundNo Family History Records FoundNo Family History Records Found Advance Directives No Advanced Directives Records Found Date ActivatedDate DjeobicfjszKzntvjqi75/25/2024 3:03 AMDate ActivatedDate TzmfwzpzvlrQicymldc17/25/2024 3:03 AM06/22/2024 3:37 PMDate ActivatedDate InactivatedComments12/03/2024 3:03 AM Additional Source Comments INFORMATION SOURCE (unrecogn ized section and content) DATE CREATED AUTHOR 09/15/2021 [facility] DATE CREATED AUTHOR AUTHOR'S ORGANIZ ATION 08/26/2022 [facility] DATE CREATED AUTHOR AUTHOR'S ORGANIZ ATION 06/23/2024 [facility] DATE CREATED AUTHOR AUTHOR'S ORGANIZ ATION 08/10/2024 [facility] DATE CREATED AUTHOR AUTHOR'S ORGANIZ ATION 12/05/2024 [facility] DATE CREATED AUTHOR AUTHOR'S ORGANIZ ATION 12/30/2024 [facility] DATE CREATED AUTHOR AUTHOR'S ORGANIZ ATION 05/10/2025 [facility] [employer] [facility] Reason for Visit (unrecogniz ed section and content) ReasonCommentsBack PainReasonCommentsLeg PainNew patient referral- pt complains of pain in back, bilateral legs and hips, states is worse on theright. Says right foot will turn purple at times.SpecialtyDiagnoses / ProceduresReferred By ContactReferred To ContactVascular Surgery Diagnoses Back pain Atrophy of muscle of right thigh Delfino Harmon, DO [address] [place] [address] Phone: tel: fax: [facility] [address] [place] [address] Phone: tel:[phone] fax: Referral IDStatusReasonStart DateExpiration DateVisits RequestedVisits [id number] Review Specialty Services Required [id number]-ghAslfiwe done- pt c/o cramping and pain in both legs, right leg is worse- states hands, feet,and arms are often cold and turns purple ReasonCommentsJoint PainNumbness/tinglingNew patient, to establish relationshipSpecialtyDiagnoses / ProceduresReferred By ContactReferred To Contact Diagnoses Lumbar radiculopathy Procedures LVL 4 NEW PT, MODERATE MDM, MINIMUM OF 45 MINUTES LVL 4 EST PT, MODERATE MDM, MINIMUM OF 30 MINUTES Stiven Duran MD [address] [place] [address] Phone: tel: fax: Referral IDStaunm children's hospitalDeborahHartselle [facility] DateExpiration DateVisits RequestedVisits [id number] Consultation-[facility] [id number] PainNumbness/tinglingNew patient, to establish relationshipSpecialtyDiagnoses / ProceduresReferred By ContactReferred To Contact Diagnoses Lumbar radiculopathy Procedures LVL 4 NEW PT, MODERATE MDM, MINIMUM OF 45 MINUTES LVL 4 EST PT, MODERATE MDM, MINIMUM OF 30 MINUTES Stiven Duran MD [address] [place] [address] Phone: tel: fax: Referral IDStatDeborahHartselle Medical Center DateExpiration DateVisits RequestedVisits [id number] Consultation-[facility] [id number] Pain Scheduled Active and Recently Administ ered Medications (unrecognized section and content) Medication Order06/20// enoxaparin (LOVENOX) syringe 40 mg 40 mg, subcutaneous, Daily, First dose on Thu06/22/24 at 0305, Look-alike/sound-alike medication -verify indication for use. * 0305 (Not Given - Provider: Valerie Dee RN - Reason: Patient/family refused) ketorolac (TORADOL) injection 15 mg (COMPLETED) 15 mg, intravenous, Once, On Thu06/22/24 at 0125, For 1 dose, Look-alike/sound-alike medication - verify indication for use. Duration of therapy is not to exceed 5 days. Maximum recommended dose + 120mg/24 hours. * 0141 (Given - Provider: Fabián Matthews RN) morphine injection 4 mg (COMPLETED) 4 mg, intravenous, Once, On Thu06/22/24 at 0125, For 1 dose, Look-alike/sound-alike medication - verify indication for use. * 0141 (Given - Provider: Fabián Matthews RN) sodium chloride 0.9 % flush 3 mL 3 mL, intravenous, Every 12 hours scheduled, First dose on Thu06/22/24 at 0900 * 0908 (Given - Provider: Desirae Medina LPN) * 2100 (Due) Medication Order06/20// acetaminophen (TYLENOL) tablet 650 mg 650 mg, [...] 4 Hours, As needed, ionized calcium 3.4 mg/dLor less, Starting on Thu06/22/24 at 030, IV [...] orders. If blood glucose is not greater than70 mg/dL after initial treatment, repeat treatment. dextrose 50 % in water (D50W) 50% solution 25 mL 25 mL, intravenous, As needed, low blood sugar, blood glucose less than 70 mg/dL and unconscious orNPO with IV access, Starting on Thu06/22/24 at 0301, Push over 1-3 minutes STAT. If conscious and not NPO, immediately follow with meal tray or high protein (7 grams) snack if tray not available. IfNPO, initiate 5% dextrose in water at 100 [...] not available. If NPO, initiate IV 5% Dext gasper/Water at 100 mL/hr and contact prescriber for additional orders. If blood glucose is not greater than 70 mg/dL after initial treatment, repeat treatment. ketorolac (TORADOL) injection 15 mg 15 mg, intravenous, Every 6 hours PRN, moderate pain - pain scale 4-6, Starting on Thu06/22/24 at 0911, For 3 days, Look-alike/sound-alike medication - verify indication for use. Duration of therapyis not to exceed 5 days. Maximum recommended dose + 120mg/24 hours. magnesium sulfate IVPB 2000 mg/50 mL in iso-osmotic water (40 mg/mL premix) 2,000 mg, intravenous, at 25 mL/hr, Administer over 120 Minutes, As needed, Magnesium level 1.7 to 1.9 mg/dL, or Ionized Magnesium level 0.45 to 0.5 mmol/L., Starting on Thu06/22/24 at 0301, Recheckmagnesium level 4 hours after infusion complete. With [...] Look-alike/sound-alike medication - verify indication for use. * 0930 (Given - Provider: Ynes Guerra RN) potassium chloride (K-TAB,KLOR-CON) CR [...] GFR 30 mL/min or greater=40 mEq. For potassiumlevel 3 mmol/L or less and GFR 30 [...] GFR 30 mL/min or greater=40 mEq. For potassiumlevel 3 mmol/L or less and GFR 30 [...] less., Starting on Thu06/22/24 at 0301, Administer oral dose if patient tolerating PO. [...] or less, Starting on Thu06/22/24 at 0301, Administer IV dose if NPO or not tolerating PO. Administer over 6 hours via dedicated line (peripheral line). If administered, recheck phosphorus level 4 hours after infusion complete. Order Group 1: potassium chloride (K-TAB,KLOR-CON) CR [...] GFR 30 mL/min or greater=40 mEq. For potassiumlevel 3 mmol/L or less and GFR 30 [...] GFR 30 mL/min or greater=40 mEq. For potassiumlevel 3 mmol/L or less and GFR 30 [...] less., Starting on Thu06/22/24 at 0301, Administer oral dose if patient tolerating PO. If dose administered, recheck phosphorus level 4 hours after last dose. Look-alike/sound-alike medication - verify indication for use. Give with a full glass of water. Medication Order//01/2025 acetaminophen (TYLENOL) tablet 650 mg 650 mg, Oral, EVERY 6 HOURS, First dose on 12/03/24 at 0400, Until Discontinued, Maximum dose of acetaminophen is 4000 mg from all sources in 24 hours., Post-op * 0557 (Given - Provider: Betsy Hardin RN) * 1010 (Not Given - Provider: Brandee Carr RN - Reason: Patient/family refused) * 1647 (Not Given - Provider: Brandee Carr RN - Reason: Patient/family refused) * 1950 (Not Given - Provider: Kyree Kapoor RN - Reason: Patient/family refused) * 0410 (Not Given - Provider: Kyree Kapoor RN - Reason: Patient/family refused) * 0828 (Not Given - Provider: Brandee Carr RN - Reason: Patient/family refused) * 1600 (Due) * 2200 (Due) dexAMETHasone (PF) (DECADRON) injection 10 mg 10 mg, IntraVENous, EVERY 8 HOURS, First dose on 12/03/24 at 0700 * 0605 (Given - Provider: Betsy Hardin RN) * 1647 (Not Given - Provider: Brandee Carr RN - Reason: Patient/family refused) * 2300 (Not Given - Provider: Kyree Kapoor RN - Reason: Patient/family refused) * 0516 (Not Given - Provider: Kyree Kapoor RN - Reason: Patient/family refused) * 1500 (Due) * 2300 (Due) methocarbamol (ROBAXIN) tablet 750 mg 750 mg, Oral, 4 TIMES DAILY, First dose on 12/03/24 at 1300, Until Discontinued, On hold since Thu12/03/2024 at 1007 until manually unheld * 1007 (Held by provider - Provider: DEX Malhotra - Reason: Other) * 1300 (Automatically Held) * 1700 (Automatically Held) * 2100 (Automatically Held) * 0900 (Automatically Held) * 1300 (Automatically Held) * 1700 (Automatically Held) * 2100 (Automatically Held) metoprolol succinate (TOPROL XL) extended release tablet 50 mg 50 mg, Oral, DAILY, First dose on 12/03/24 at 1200, Until Discontinued, Do not crush or chew., Onhold since 12/03/2024 at 1255 until manually unheld * 1120 (Not Given - Provider: Brandee Carr RN - Reason: Contraindicated - Comment: HR 51) * 1255 (Held by provider - Provider: DEX Malhotra - Reason: Other) * 0900 (Automatically Held - Provider: DEX Malhotra) sodium chloride flush 0.9 % injection 5-40 mL 5-40 mL, IntraVENous, EVERY 12 HOURS SCHEDULED (2 times per day), First dose on 12/03/24 at 0900,Until Discontinued, For Line Patency: Peripheral IV = 5 mL; Midline or Central Line = 10 mL/lumen. If following IV push medication, administer flush at same rate as the IV push. Flush volume is determined by type of infusion therapy being given. For non-viscous solutions use: Peripheral IV = 5 mL Midline or Central Line = 10 mL/lumen For viscous solutions (i.e. blood components, parenteral nutrition, contrast media, or after obtaining blood sample) use: Peripheral IV = 10 mL Midline or Central Line = 20 mL/lumen, Post-op * 0839 (Canceled Entry - Provider: Brandee Carr RN) * 1950 (Not Given - Provider: Kyree Kapoor RN - Reason: Patient/family refused) * 0828 (Not Given - Provider: Brandee Carr RN - Reason: Patient/family refused) * 2100 (Due) Medication Order//01/2025 0.9 % sodium chloride infusion IntraVENous, at 5-250 mL/hr, PRN, if patient receiving piggyback infusions and maintenance fluids are not ordered, Starting on 12/03/24 at 0303, For piggyback infusion, administer at same rate as piggyback for a total of 25 mL. Enter 25 mL into dose field and piggyback rate into rate field of order. If piggyback is infusing at a rate less than 100 mL/hr, enter 25 mL into dose field and 100 mL/hr into rate field of order., Post-op gadoteridol (PROHANCE) injection 10 mL (COMPLETED) 10 mL, IntraVENous, IMG ONCE PRN, 1 dose, Starting on 12/03/24 at 0528, Until 12/03/24 at 0528,Other * 0528 (Given - Provider: Maya Huerta) ondansetron (ZOFRAN) injection 4 mg(Linked Group 1) 4 mg, IntraVENous, EVERY 6 HOURS PRN, Starting on 12/03/24 at 0303, Until Discontinued, Nausea, Vomiting, Administer if oral route cannot be used., Post-op * 0624 (Given - Provider: Betsy Hardin RN) ondansetron (ZOFRAN-ODT) disintegrating tablet 4 mg(Linked Group 1) 4 mg, Oral, EVERY 8 HOURS PRN, Starting on 12/03/24 at 0303, Until Discontinued, Nausea, Vomiting, Post-op * 0624 (See Alternative - Provider: Betsy Hardin RN) sodium chloride flush 0.9 % injection 5-40 mL 5-40 mL, IntraVENous, PRN, Starting on 12/03/24 at 0303, Until Discontinued, Line Care, After every IV line use, For Line Patency: Peripheral IV = 5 mL; Midline or Central Line = 10 mL/lumen. If following IV push medication, administer flush at same rate as the IV push. Flush volume is determinedby type of infusion therapy being given. For non-viscous solutions use: Peripheral IV = 5 mL Midline or Central Line = 10 mL/lumen For viscous solutions (i.e. blood components, parenteral nutrition, contrast media, or after obtaining blood sample) use: Peripheral IV = 10 mL Midline or Central Line = 20 mL/lumen, Post-op Order Group 1: ondansetron (ZOFRAN-ODT) disintegrating tablet 4 mgJump to med 4 mg, Oral, EVERY 8 HOURS PRN, Starting on 12/03/24 at 0303, Until Discontinued, Nausea, Vomiting, Post-op Or ondansetron (ZOFRAN) injection 4 mgJump to med 4 mg, IntraVENous, EVERY 6 HOURS PRN, Starting on 12/03/24 at 0303, Until Discontinued, Nausea, Vomiting, Administer if oral route cannot be used., Post-op Care Teams (unrecognized sec tion and content) Team MemberRelationshipSpecialtyStart DateEnd Date Stiven Duran MD PCP - GeneralFamily Fpdrohdk69/15/24Team MemberRelationshipSpecialtyStart Date End Date Stiven Duran MD PCP - Generalmily Maqmplki59/15/24Team MemberRelationshipSpecialtyStart Date End Date Stiven Duran MD PCP - Generalmily Xxzbmhpg38/15/24Team MemberRelationshipSpecialtyStart Date End Date Stiven Durna MD [address] [place] [address] PCP - GeneralFamily Medicine12/02/24 MemberRelationshipSpecialtyStart DateEnd Date Eloisa Beasley MD [address] [place] [address] PhysicianOrthopaedic Surgery01/28/25Team MemberRelationshipSpecialtyStart DateEnd Date Eloisa Beasley MD [address] [place] [address] PhysicianOrthopaedic Surgery01/28/25Team MemberRelationshipSpecialtyStart DateEnd Date Eloisa Beasley MD [address] [place] [address] PhysicianOrthopaedic Surgery01/28/25Team MemberRelationshipSpecialtyStart DateEnd Date Eloisa Beasley MD [address] [place] [address] PhysicianOrthopaedic Surgery01/28/25Team MemberRelationshipSpecialtyStart DateEnd Date Eloisa Beasley MD [address] [place] [address]953 PhysicianOrthopaedic Surgery01/28/25Team MemberRelationshipSpecialtyStart DateEnd Date Eloisa Beasley MD [address] [place] [address] PhysicianOrthopaedic Surgery01/28/25Team MemberRelationshipSpecialtyStart DateEnd Date Eloisa Beasley MD [address] [place] [address] PhysicianOrthopaedic Surgery01/28/25Team MemberRelationshipSpecialtyStart DateEnd Date Eloisa Beasley MD [address] [place] [address] PhysicianOrthopaedic Surgery01/28/25Team MemberRelationshipSpecialtyStart DateEnd Date Eloisa Beasley MD [address] [place] [address] PhysicianOrthopaedic Surgery01/28/25 FOR RECORDS PERTAINING TO PATIENTS WHO ARE [...] BE BASED ON THE PRIMARY CLINICAL RECORDS. [facility] [employer] [facility]. provides no warranty or guarantee of the accuracy or completeness of information in this document.
--- OUTSIDE RECORDS SUMMARY | 2025-05-14 04:01 | XMS_ITS | Encounter Summary ---
Author Organization [facility] Address [address] [place], [place] [id number] Care Team Providers Care Quality Assurance Nurse Name Role Phone Pj Fuentes MD Unavailable [phone] Encounter Details DateTypeDepartmentCare Team (Latest Contact Info)Vfytxuswvnl01/05/2025E-Consult [facility] Cardiology [address] [place], [place] [phone] Inder Gregory MD [address] [place], [place] [phone] Social History Tobacco UseTypesPacks/DayYears UsedDateSmoking Tobacco: Every DayCigarettes Smokeless Tobacco: Never Comments:vapes Alcohol UseStandard Drinks/WeekCommentsNot Currently0 (1 standard drink = 0.6 oz pure alcohol)Substance UseTypesUse/WeekCommentsYesMarijuana/THCdaily CommentsUnknownSex and Gender InformationValueDate RecordedSex Assigned at Not on fileLegal DozXbgejg63/02/2025 9:50 AM EDTGender IdentityNot on fileSexual OrientationNot on filedocumented as of this encounter Progress Notes * Inder Gregory MD - 05/03/2025 12:09 PM [...] [facility] - sinus iRBBB Recommendations: Ms. Doug Gomez can proceed with surgery as planned with acceptable trupti-op and post-op CV event rate. Inder Gregory M.D., [facility], ANNELISE silica dry press helper, Non-invasive cardiology. Director, Cardiac CICU and Cardiac Telemetry Director, Nuclear Cardiology The majority of the service time of 6 minutes (>50%) was devoted to the medical consultative internet discussion. documented in this encounter Plan of Treatment DateTypeDepartmentCare Team (Latest Contact Info)Mctioxgvrgw35/25/2025 11:00 AM ESTOffice Visit [facility] Orthopedic Spine [address] [place] [phone] Pj Fuentes MD [address] [place] [phone] documented as of this encounter Visit Diagnoses Diagnosis Preop cardiovascular exam- Primary Pre-operative cardiovascular examination documented in this encounter Care Teams Team MemberRelationshipSpecialtyStart DateEnd Date Pj Fuentes MD [address] [place] [address] [phone] PhysicianOrthopaedic Surgery01/28/25documented as of this encounter
--- OUTSIDE RECORDS SUMMARY | 2025-05-14 04:01 | XMS_ITS | Clinical Summary ---
Author Organization [facility] Address [address] [place] [address] Care Team Providers Care Title Investigator Name Role Phone Pj Fuentes MD Unavailable [phone] Heather Lorenz APRN-LICHA Unavailable [phone] Source Comments The following information is NOT included in Care Everywhere downloads:Psychiatric notes, ECG results, Cardiac Rehab notes, Pulmonary Function notes, data from [employer] (includes but not limited toPregnancy data,audiograms, eye exams, pre-surgical evaluation notes, well-child exam data).[facility] Allergies Active AllergyReactionsCriticalityNoted DateCommentsHydrocodone-Acetaminophen Nausea,KlbruqgfRcvw32/12/2021 Medications MedicationSigDispense QuantityRefillsLast FilledStart DateEnd DateStatus cyclobenzaprine (FLEXERIL) 10 MG tablet Take 10 mg by mouth 3 times daily as needed for Muscle spasms.5Active lidocaine (LIDODERM) 5 % patch Place 1 Patch on the skin daily as needed for Pain.4Active montelukast (SINGULAIR) 10 MG tablet TAKE 1 TABLET BY MOUTH EVERY DAY FOR 30 DAYS; Duration: 30Active budesonide-formoterol (Symbicort) 80-4.5 MCG/ACT inhaler Inhale 2 Puffs by mouth 2 times daily.Active ALBUTEROL INHALATION Inhale 1-2 Puffs by mouth every 6 hours as needed (SOB).Active docusate sodium (Colace) 100 MG capsule Take 1 Capsule by mouth 2 times daily. 60 Capsule 05/12/2025 2:41 PM EST5Active cyclobenzaprine (FLEXERIL) 10 MG tablet Take 1 Tablet by mouth 3 times daily as needed for Muscle spasms. 90 Tablet 2:41 PM EST5Active oxyCODONE-acetaminophen (PERCOCET) 5-325 mg per tablet Indications:Failed back surgical syndromeTake 1 Tablet by mouth every 6 hours as needed for Pain for up to 21 days. 84 Tablet 05/12/2025 2:41 PM EST5Active metoprolol (TOPROL-XL) 50 mg XL tablet Discontinued Active Problems ProblemNoted DateDiagnosed DateGastroesophageal reflux disease with esophagitis 05/02/20254400Wrrkeklrgvfn34/04/2025Liver mass05/02/2025Failed back surgical ywpbyrco35/24/1438Ghcwbz78/06/2025alculus of lqtmmz4512/02/2024Migraine headache 10/31/2024Posttraumatic stress faatrvsj76/21/4157Haphok47/23/2024 Encounters DateTypeDepartmentCare TfkzLknffxngcaa98/12/2025 7:30 AM EST - 05/10/2025 11:03 AM ESTSur[facility] [address] [place] [phone] Pj Fuentes MD REMOVAL POSTERIOR SPINAL INSTRUMENTATION, L5-S1 POSTERIOR SPINAL FUSION 05/10/2025 7:27 AM EST - 05/10/2025 11:59 PM ESTHospital Encounter [facility] [address] [place] [phone] Pj Fuentes MD Discharge Disposition: HOV Bytkvhhmr66/12/2025 7:21 AM ESTAnesthesia Event [facility] [address] [place] [phone] Campos Waller MD Guay, Daniel, MD 05/10/2025 5:50 AM EST - 05/12/2025 3:16 PM ESTHospital Encounter [address] [address] Pj Fuentes MD Failed back surgical syndrome (Primary Dx) Discharge Disposition: Discharge to Home05/03/2025E-Consult [facility] [address] [place] [phone] Inder Gregory MD 05/02/2025 1:30 PM ESTOffice Visit [facility] [address] [place] [phone] Heather Lorenz APRN-SEASONAL SALES ASSOCIATE Preop testing (Primary Dx); Body mass index (BMI) 22.0-22.9, adult05/02/2025 11:45 AM ESTOffice Visit [facility] [address] [place] [phone] Pj Fuentes MD Failed back surgical syndrome (Primary Dx)03/22/2025Prep for Surgery [facility] [address] [place] [phone] Pj Fuentes MD 03/16/2025 11:30 AM EDTOffice Visit [facility] [address] [place] [address] Pj Fuentes MD Failed back surgical syndrome (Primary Dx)03/08/2025 7:59 PM EDT - 03/08/2025 11:59 PM EDTHospital Encounter [facility] [address] [place] [address] [phone] Failed back surgical syndrome Discharge Disposition: HOV Idaisgjtc38/10/0103Bbneor24/27/2025Orders Only [facility] [address] [place] [phone] Pj Fuentes MD from Last 3 Months Immunizations ImmunizationAdministration DatesNext DueMMR, Yovoptg-Vhmhp-Dxmxuhf (CVX=03) 04/04/2004Td (adult), 5 Lf tetanus toxoid, preservative free, adsorbed (LKT=406) 09/16/2012Tdap (IEH=548)12/19/2015,01/19/2014,10/18/2012 Social History Tobacco UseTypesPacks/DayYears UsedDateSmoking Tobacco: Every DayCigarettes Smokeless Tobacco: Never Tobacco Cessation:Counseling Given: Yes Comments:vapes Alcohol UseStandard Drinks/WeekCommentsNot Currently0 (1 standard drink = 0.6 oz pure alcohol)[facility] UtilitiesAnswerDate RecordedIn the past 12 months has the [employer], [employer], or [employer] threatened to shut off services in your [...] RecordedIn the past 12 months has the [employer], or [employer] threatened to shut off services in your home?No05/10/2025Substance UseTypesUse/WeekCommentsYesMarijuana/THCdaily CommentsNoSex and Gender InformationValueDate RecordedSex Assigned at BirthNot on fileLegal ZbuBstjea42/02/2025 9:50 AM EDTGender IdentityNot on fileSexual OrientationNot on file Last Filed Vital Signs Vital SignReadingTime TakenCommentsBlood Gtozzjov297/7505/12/2025 6:00 AM EST Ycbws121305/12/2025 9:28 AM CEBGwjpftkqrwb49.8 ??C (98.2 ??F)05/12/2025 6:00 AM ESTRespiratory Rget497907/12/2024 9:28 AM ESTOxygen Ajebhnyoww18%05/12/2025 9:28 AM ESTInhaled Oxygen Concentration--Rcrtyy40.1 kg (117 lb)05/10/2025 11:50 AM YQAVtossa881.4 cm (5')05/10/2025 11:50 AM ESTBody Mass Index22.8505/10/2025 11:50 AM EST Plan of Treatment DateTypeDepartmentCare Team (Latest Contact Info)Ybczennxpxg02/25/2025 11:00 AM ESTOffice Visit [facility] [address] [place] [phone] Pj Fuentes MD [address] [place] [address] Health MaintenanceDue DateLast DoneCommentsHIV Test2006Hepatitis C Hhnpyrpv83/26/2009Hepatitis A (HAV) Vaccine (optional start 19+ years)2010 Hepatitis B (HBV) Vaccine (1 of 3 - 19+ 3-dose series)2010Pneumococcal Vaccine(s) (1 of 2 - PCV)2010Pap Smear01/22/2012HPV Vaccine (optional start 27-45 years)2018COVID-19 Vaccine (1 - season)2025 Influenza Vaccine (#1)2025Tetanus (Td or Tdap) Tjeqhku7912/18/2025 12/19/2015, 01/19/2014, 10/18/2012, Additional history existsBasic Metabolic Panel/09/2024, 12/04/2024, 12/04/2024, Additional history exists Shingles (RZV) Vaccine (1 of 2)2041Tdap JaomcmwTyicseygs45/22/2016, 01/19/2014, 10/18/2012MammographyDiscontinued Medical Devices ImplantedTypeAreaManufacturerDevice IdentifierShelf Expiration DateModel / Serial / LotCap Threaded Locking Creo Ea1 1119.0010 - [id number] Implanted:Qty: 4 on 05/10/2025 by Pj Fuentes MD at INPATIENT DEPARTMENTSScrewN/A: Spine Multi EtrioRlhwkk4361.0010 / / TRAYScrew Creo Thd 7.5x40mm Ea1 5146.1742 - [id number] Implanted:Qty: 2 on 05/10/2025 by Pj Fuentes MD at INPATIENT DEPARTMENTSScrewN/A: Spine Multi YgskcPofoub7452.1742 / / TRAYScrew Creo Thd 7.5x45mm Ea1 5146.1747 - [id number] Implanted:Qty: 2 on 05/10/2025 by Pj Fuentes MD at INPATIENT DEPARTMENTSScrewN/A: Spine Multi YuynxWfeyhh9565.1747 / / TRAYRod 5.5 X 35mm Curved [place] Ea1 7119.7035 - [id number] Implanted:Qty: 2 on 05/10/2025 by Pj Fuentes MD at INPATIENT DEPARTMENTSSpinal ImplantsN/A: Spine Multi GyozqSwbsdr7533.7035 / / TRAYPutty Bn Grft Ossifuse 5cc Ea1 8263.0305s - [id number] Implanted:Qty: 1 on 05/10/2025 by Pj Fuentes MD at INPATIENT DEPARTMENTSSpinal ImplantsN/A: Spine Multi UcwzmYeuphz68/22/30359962.0305S / / [id number] Procedures Procedure NamePriorityDate/TimeAssociated DiagnosisCommentsXR L-SPINE STANDING AP+LAT 2 LXZNIKKDE84/14/2025 8:10 AM EST XR FLUORO SUPPORT ONLY IN SURGERY (ERIC)STAT107/10/2024 9:51 AM ESTLAMINECTOMY AND FUSION, POSTERIOR, THORACIC LUMBARRoutine /12/2025 7:05 AM EST Failed back surgical syndrome Case Notes 03/22 LMOM URINE HCG-IN QNTPVKVkannuu73/12/2025 6:26 AM EST RED BLOOD CELL BIFURUSHOGnncmxx96/11/2025 11:39 AM EST RED BLOOD CELL UNIT QABHTZWczlrtz43/11/2025 11:39 AM EST RED BLOOD CELL UNIT LTEMTQRrpzzib39/11/2025 11:39 AM EST CONFIRMATION ABO/ZOOrmljkk46/04/2025 1:43 PM EST Preop testing CBC WITH PIJVCLDSMGBKUvrqhws53/04/2025 1:31 PM EST Preop testing TYPE AND JDHBIUFyavskb11/04/2025 1:31 PM EST Preop testing PROTHROMBIN TIME AND EMNNbqgozc24/04/2025 1:31 PM EST Preop testing PARTIAL THROMBOPLASTIN NSXWHvavasc10/04/2025 1:31 PM EST Preop testing HC HEPATIC FUNCTION TQPNBPnfhnbi48/04/2025 1:31 PM EST Preop testing COMPLETE BLOOD COUNT W/LBVUZhqjokp76/04/2025 1:31 PM EST Preop testing BASIC METABOLIC XMLISDalcbkr33/04/2025 1:31 PM EST Preop testing MR T-SPINE W/OWithin 1 week03/08/2025 9:25 PM EDT Failed back surgical syndrome MR L-SPINE W/OWithin 1 week03/08/2025 9:22 PM EDT Failed back surgical syndrome from Last 3 Months Results * XR L-SPINE STANDING AP+LAT 2 [...] Method / VolumeCollection TimeReceived TimeUrineURINE SPECIMEN / Vnfrkzw2205/10/2025 6:26 AM EST Narrative Authorizing ProviderResult TypeResult Garcia [facility] BACK OFFICE LABSFinal Result * RED BLOOD CELL COMPONENT (05/09/2025 11:39 AM EST)ComponentValueRef RangeTest MethodAnalysis TimePerformed AtPathologist SignatureBB Order ItemProduct status info to followNOR-[facility] PATHOLOGY LABORATORYSpecimen (Source)Anatomical Location / LateralityCollection Method / VolumeCollection TimeReceived Time BLOOD SPECIMEN / Unknown Narrative Authorizing ProviderResult TypeResult StatusPrice [facility] BLOOD BANKFinal ResultPerforming OrganizationAddressCity/State/ZIP CodePhone Number [facility] [address] [place] [address] * RED BLOOD CELL UNIT STATUS (05/09/2025 11:39 AM EST)ComponentValueRef Range Test MethodAnalysis TimePerformed AtPathologist SignatureBlood Product DescriptionRed Blood CellsNOR-LEA [facility] PATHOLOGY LABORATORYBlood Product [id number] [facility] PATHOLOGY LABORATORYStatusCanceGrande Ronde Hospital PATHOLOGY LABORATORYBlood Product Unit [id number] PATHOLOGY LABORATORYBlood Product Unit Pjku8574ZXQ PATHOLOGY LABORATORYComment:A PosCrossmatch InterpretationCompatible (E)[facility] PATHOLOGY LABORATORYSpecimen (Source)Anatomical Location / Laterality Collection Method / VolumeCollection TimeReceived Time05/09/2025 11:39 AM EST Narrative Authorizing ProviderResult TypeResult StatusPrice [facility] BLOOD BANKEdited Result - FinalPerforming OrganizationAddressCity/State/ZIP CodePhone Number [facility] [address] [place] [address] * RED BLOOD CELL UNIT STATUS (05/09/2025 11:39 AM EST)ComponentValueRef Range Test MethodAnalysis TimePerformed AtPathologist SignatureBlood Product DescriptionRed Blood CellsNOR-LEA [facility] PATHOLOGY LABORATORYBlood Product [id number] [facility] PATHOLOGY LABORATORYStatusCanceGrande Ronde Hospital PATHOLOGY LABORATORYBlood Product Unit [id number] PATHOLOGY LABORATORYBlood Product Unit Jzev1225RJW PATHOLOGY LABORATORYComment:A PosCrossmatch InterpretationCompatible (E)[facility] PATHOLOGY LABORATORYSpecimen (Source)Anatomical Location / Laterality Collection Method / VolumeCollection TimeReceived Time05/09/2025 11:39 AM EST Narrative Authorizing ProviderResult TypeResult StatusPrice [facility] BLOOD BANKEdited Result - FinalPerforming OrganizationAddressCity/State/ZIP CodePhone Number [facility] [address] [place] [address] * CONFIRMATION ABO/RH (05/02/2025 1:43 PM EST)ComponentValueRef RangeTest Method Analysis TimePerformed AtPathologist SignatureABO Rh TypeA Kqhdpjpc94/04/2025 4:13 PM ESTS PATHOLOGY LABORATORYSpecimen Expiration [id number] 05/02/2025 4:13 PM ESTS PATHOLOGY LABORATORYABO Rh/Libby/TXRX HistoryA Eqfavjtf26/04/2025 4:13 PM ESTNOR-LEA GENERAL [facility]OSPITAL PATHOLOGY LABORATORYSpecimen (Source) Anatomical Location / LateralityCollection Method / VolumeCollection Time Received TimeBloodBLOOD SPECIMEN / UnknownVenipuncture / Ddvvxim7805/02/2025 1:43 PM EST05/02/2025 3:32 PM EST Narrative Authorizing ProviderResult TypeResult StatusHeather Lorenz JOB PRESS FEEDER-CNPEC BLOOD BANKFinal ResultPerforming OrganizationAddressCity/State/ZIP CodePhone Number [facility] [address] [place] [phone] * (ABNORMAL) CBC WITH DIFFERENTIAL (05/02/2025 1:31 PM EST)ComponentValueRef RangeTest MethodAnalysis TimePerformed AtPathologist SignatureWBC7.14.5 - 11.5 K/uL05/02/2025 3:49 PM [facility] PATHOLOGY LABORATORYRBC4.414.00 - 5.20 M/uL 05/02/2025 3:49 PM [facility] PATHOLOGY FLWLGBQIEHKyrtiktxza29.3(L)12.0 - 15.0 g/dL05/02/2025 3:49 PM [facility] PATH[facility] HCVXRESYXEMgvdjdgiib25.4(L)36.0 - 46.0 %05/02/2025 3:49 PM [facility] QTUXERBOUURJA27(L)80 - 100 fL05/02/2025 3:49 PM ESTNOR-LEA [facility] GMGQUMFXRVGSO62.5(L)26.0 - 34.0 pg05/02/2025 3:49 PM [facility] VEUQKEBPQGOQNW49.932.0 - 35.9 g/dL05/02/2025 3:49 PM [facility] IJLTAWBPHVRjsucfxh726412 - 400 K/uL05/02/2025 3:49 PM [facility] PATHOLOGY LABORATORYRDW-CV16.9(H)11.5 - 14.5 %05/02/2025 3:49 PM [facility] MFSGBNASGEEPR43.7(H)7.5 - 11.2 fL05/02/2025 3:49 PM [facility] PATHOLOG[facility] NYBPZNWITKVxsgfbyeulr74.831.0 - 76.0 %05/02/2025 3:49 PM [facility] PATHOLOGY LABORATORYNeutrophil #4.271.50 - 8.00 K/uL05/02/2025 3:49 PM [facility] PATH[facility] AXJPXNWHYVFrqwppewspd13.624.0 - 44.0 %05/02/2025 3:49 PM [facility] PATHOLOGY LABORATORYLymphocytes #2.181.00 - 4.80 K/uL05/02/2025 3:49 PM [facility] PATHOLOGY LABORATORYMonocytes7.12.0 - 11.0 %05/02/2025 3:49 PM [facility] PATHOLOGY LABORATORYMonocyte #0.510.20 - 1.00 K/uL05/02/2025 3:49 PM [facility] PATHOLOGY LABORATORYEosinophil1.70.1 - 4.0 %05/02/2025 3:49 PM [facility] PATHOLOGY LABORATORYEosinophil #0.120.00 - 0.70 K/uL05/02/2025 3:49 PM [facility] PATHOLOGY LABORATORYBasophils0.8<=1.9 %05/02/2025 3:49 PM [facility] Basophil #0.060.00 - 0.20 K/uL05/02/2025 3:49 PM [facility] Specimen (Source)Anatomical Location / LateralityCollection Method / Volume Collection TimeReceived TimeBloodBLOOD SPECIMEN / UnknownVenipuncture / Sfhhnex8005/02/2025 1:31 PM EST05/02/2025 3:43 PM EST Narrative Authorizing ProviderResult TypeResult StatusHeather Lorenz JOB PRESS FEEDER-CNPEC LAB ORDER ONLYFinal ResultPerforming OrganizationAddressCity/State/ZIP CodePhone Number [facility] [address] [place] [phone] * (ABNORMAL) HEPATIC FUNCTION PANEL (05/02/2025 1:31 PM EST)ComponentValueRef RangeTest MethodAnalysis TimePerformed AtPathologist SignatureAlbumin4.53.5 - 5.7 g/dL05/02/2025 4:14 PM [facility] PATHOLOGY LABORATORYBilirubin, Direct<0.05 0.03 - 0.18 mg/dL05/02/2025 4:14 PM [facility] PATHOLOGY LABORATORYBilirubin, Total0.2(L)0.3 - 1.0 mg/dL05/02/2025 4:14 PM [facility] Comment:Note updated reference range.Alkaline Spfckfjqykl8724 - 104 IU/L 05/02/2025 4:14 PM [facility] PATHOLOGY LABORATORYALT (SGPT)87 - 52 IU/L107/02/2024 4:14 PM [facility] PATHOLOGY LABORATORYAST (SGOT)1413 - 39 IU/L107/02/2024 4:14 PM [facility] PATHOLOGY LABORATORYProtein, Total7.06.1 - 7.9 g/dL05/02/2025 4:14 PM [facility] PATHOLOGY LABORATORYComment:Note updated reference range.Specimen (Source)Anatomical Location / LateralityCollection Method / VolumeCollection TimeReceived TimeBloodBLOOD SPECIMEN / UnknownVenipuncture / Vhupels9605/02/2025 1:31 PM EST05/02/2025 3:43 PM EST Narrative Authorizing ProviderResult TypeResult StatusHeather Lorenz JOB PRESS FEEDER-CNP98 GENERAL LABFinal ResultPerforming OrganizationAddressCity/State/ZIP CodePhone Number [facility] [address] [place] [phone] * BASIC METABOLIC PANEL (05/02/2025 1:31 PM EST)ComponentValueRef RangeTest MethodAnalysis TimePerformed AtPathologist NmcusetpvPfmjlgm6818 - 109 mg/dL 05/02/2025 4:14 PM [facility] PATH[facility] ZEQAOEWWUJLjknds468712 - 145 mmol/L 05/02/2025 4:14 PM [facility] PATHOLOGY LABORATORYPotassium4.53.5 - 5.0 mmol/L 05/02/2025 4:14 PM [facility] PATHOLOGY LABORATORYCarbon Jfxpznn8772 - 31 mmol/L 05/02/2025 4:14 PM [facility] PATH[facility]Y MUNVXRBSAKWivsklor75925 - 107 mmol/L 05/02/2025 4:14 PM [facility] PATHOLOGY LABORATORYBlood Urea Cinmlogw428 - 25 mg/dL05/02/2025 4:14 PM [facility] PATHOLOGY LABORATORYCreatinine0.750.60 - 1.20 mg/dL05/02/2025 4:14 PM [facility] PATHOLOGY LABORATORYCalcium9.48.6 - 10.3 mg/dL 05/02/2025 4:14 PM [facility] PATHOLOGY LABORATORYAnion Zmh0614 - 4:14 PM [facility] PATHOLOGY LABORATORYEstimated GFR (CKD-EPI)107>=60 mL/min/1.19ihi0807/02/2024 4:14 PM [facility] PATHOLOGY LABORATORYComment: 2020 CKD EPI Equation using [...] Med 1 Vol. 385 Issue 19 Pages 4322-1174 Specimen (Source)Anatomical Location / LateralityCollection Method / Volume Collection TimeReceived TimeBloodBLOOD SPECIMEN / UnknownVenipuncture / Unknown 05/02/2025 1:31 PM EST05/02/2025 3:43 PM EST Narrative Authorizing ProviderResult TypeResult StatusHeather Lorenz JOB PRESS FEEDER-CNP98 GENERAL LABFinal ResultPerforming OrganizationAddressCity/State/ZIP CodePhone Number [facility] [address] [place] [phone] * TYPE AND SCREEN (05/02/2025 1:31 PM EST)ComponentValueRef RangeTest Method Analysis TimePerformed AtPathologist SignatureABO Rh TypeA Qccbsjms47/04/2025 4:15 PM [facility] PATHOLOG[facility] LABORATORYAb Screen BrdcsiWeophxcd98/04/2025 4:15 PM [facility] PATHOLOGY LABORATORYSpecimen Expiration Frnw1330819708644357/04/2025 4:15 PM [facility] PATHOLOGY LABORATORYABO Rh/Libby/TXRX HistoryNo Previous Results 05/02/2025 4:15 PM [facility] PATHOLOGY LABORATORYComment:Patient does not require a 2nd sample drawn prior to surgery date of 05/10/25. Specimen meets Blood Bank's Pre-Surgical Protocol and is valid within 30 days from date of collection but will atmidnight on the day of approved Surgery.Specimen (Source)Anatomical Location / LateralityCollection Method / VolumeCollection TimeReceived TimeBloodBLOOD SPECIMEN / UnknownVenipuncture / Zbnuglp1105/02/2025 1:31 PM EST05/02/2025 3:32 PM EST Narrative Authorizing ProviderResult TypeResult StatusAlexhomero Kelechi ARREDONDON-CNPEC BLOOD BANKFinal ResultPerforming OrganizationAddressCity/State/ZIP CodePhone Number [facility] [address] [place] [phone] * PROTHROMBIN TIME AND INR (05/02/2025 1:31 PM EST)ComponentValueRef RangeTest MethodAnalysis TimePerformed AtPathologist RbmspzugqUombfom66.49.7 - 12.9 sec 05/02/2025 4:22 PM [facility] PATHOLOGY LABORATORYINR0.930.90 - 1.10107/02/2024 4:22 PM [facility] PATHOLOGY LABORATORYSpecimen (Source)Anatomical Location / LateralityCollection Method / VolumeCollection TimeReceived TimeBloodBLOOD SPECIMEN / UnknownVenipuncture / Izggwvk3705/02/2025 1:31 PM EST05/02/2025 3:43 PM EST Narrative Authorizing ProviderResult TypeResult StatusHeather Lorenz JOB PRESS FEEDER-CNP98 GENERAL LABFinal ResultPerforming OrganizationAddressCity/State/ZIP CodePhone Number [facility] [address] [place] [phone] * PARTIAL THROMBOPLASTIN TIME (05/02/2025 1:31 PM EST)ComponentValueRef Range Test MethodAnalysis TimePerformed AtPathologist UenwzbskmpWEG7071 - 37 sec 05/02/2025 4:22 PM [facility] PATHOLOGY LABORATORYSpecimen (Source)Anatomical Location / LateralityCollection Method / VolumeCollection TimeReceived Time BloodBLOOD SPECIMEN / UnknownVenipuncture / Cyncekn5105/02/2025 1:31 PM EST 05/02/2025 3:43 PM EST Narrative Authorizing ProviderResult TypeResult StatusHeather Lorenz JOB PRESS FEEDER-CNP98 GENERAL LABFinal ResultPerforming OrganizationAddressCity/State/ZIP CodePhone Number [facility] [address] [place] [phone] * MR T-SPINE W/O (03/08/2025 9:25 PM EDT)Anatomical RegionLateralityModalityMR T- Spine, T-spineN/AMagnetic ResonanceSpecimen (Source)Anatomical Location / LateralityCollection Method / VolumeCollection TimeReceived Time03/09/2025 7:44 AM EDT Narrative 03/09/2025 7:46 AM EDT EXAMINATION: MR T-SPINE W/OPRO 03/08/2025 09:25 PM CLINICAL HISTORY: myelopathy ASSOCIATED DIAGNOSIS: Failed back surgical syndrome ORDERING PROVIDER: PJ FUENTES TECHNOLOGISTS NOTE: ??Pt motion due to pain and claustro. Pt [...] foraminal stenosis. IMPRESSION: Normal study. MACRO: None Procedure Note Scout Enriquez MD - 03/09/2025 EXAMINATION: MR T-SPINE W/OPRO 03/08/2025 09:25 PM CLINICAL HISTORY: myelopathy ASSOCIATED DIAGNOSIS: Failed back surgical syndrome ORDERING PROVIDER: PJ FUENTES TECHNOLOGISTS NOTE: Pt motion due to pain and claustro. Pt premedicatedbut said it didn't help. Unable to do repeats. Best images achievable.mds COMPARISON: , Lumbar spine MRI from 03/08/2025 and 11/11/2024 (outsideinstitution) TECHNIQUE: Patient questionnaire was completed and was reviewed by MRIpersonnel prior to the patient entering the scanner. Multiplanar,multisequence MR imaging of the thoracic spine was performed withoutintravenous contrast. FINDINGS: The examination is degraded by motion artifact. Counting reference: Lumbosacral junction. L4-5 is at the level of theiliac crests, and there are 5 nonrib-bearing lumbar-type vertebral bodies. Alignment: Normal. Vertebral Body Height: Normal. Bone Marrow: No aggressive focal lesion or pathologic marrowinfiltration. Cord: Normal signal intensity and morphology. Paraspinal Soft Tissues: Normal. Canal and Foramina: No significant thoracic spinal canal or neuralforaminal stenosis. IMPRESSION: Normal study. MACRO: None Authorizing ProviderResult TypeResult StatusTimmonica [facility] MRIFinal Result * MR L-SPINE W/O (03/08/2025 9:22 PM EDT)Anatomical RegionLateralityModalityMR L-Spine, L-spineN/AMagnetic ResonanceSpecimen (Source)Anatomical Location / LateralityCollection Method / VolumeCollection TimeReceived Time03/09/2025 7:32 AM EDT Addenda Addendum by Scout Enriquez MD on 03/09/2025 9:32 AM EDT EXAMINATION: MR L-SPINE W/OPRO ?? 03/08/2025 09:22 PM CLINICAL HISTORY: Low back pain, 6 weeks or more; S/P lumbar surgery; X-ray L-spine done ASSOCIATED DIAGNOSIS: Failed back surgical syndrome ORDERING PROVIDER: PJ FUENTES TECHNOLOGISTS NOTE: ??Pt unable to hold still due to pain and clautrophobia even though premedicated. Unable to do repeats. Best images achievable.mds COMPARISON: Lumbar spine CT from 12/06/2024 TECHNIQUE: Patient questionnaire was completed and was reviewed by MRI personnel prior to the patient entering the scanner. Multiplanar, multisequence MR imaging of the lumbar spine was performed ??without intravenous contrast. FINDINGS: Counting reference: Lumbosacral junction. [...] SPINAL CANAL STENOSIS. FINDINGS SUGGESTIVE OF ARACHNOIDITIS. Narrative 03/09/2025 7:43 AM EDT EXAMINATION: MR L-SPINE W/OPRO 03/08/2025 09:22 PM CLINICAL HISTORY: Low back pain, 6 weeks or more; S/P lumbar surgery; X-ray L- spine done ASSOCIATED DIAGNOSIS: Failed back surgical syndrome ORDERING PROVIDER: PJ FUENTES TECHNOLOGISTS NOTE: ??Pt unable to hold still due to pain and clautrophobia even though premedicated. Unable to do repeats. Best images achievable.mds COMPARISON: Lumbar spine CT from 12/06/2024 TECHNIQUE: Patient questionnaire was completed and was reviewed by MRI personnel prior to the patient entering the scanner. Multiplanar, multisequence MR imaging of the lumbar spine was performed ??without intravenous contrast. FINDINGS: Counting reference: Lumbosacral junction. L4-5 is at the level of the iliac crests, and there are 5nonrib-bearing lumbar-type vertebral bodies. ?? Alignment: Within normal limits. Vertebral Body Height: [...] Findings suggestive of arachnoiditis. arachnoiditis. MACRO: None Procedure Note Scout Enriquez MD - 03/09/2025 EXAMINATION: MR L-SPINE W/OPRO 03/08/2025 09:22 PM CLINICAL HISTORY: Low back pain, 6 weeks or more; S/P lumbar surgery;X-ray L- spine done ASSOCIATED DIAGNOSIS: Failed back surgical syndrome ORDERING PROVIDER: PJ FUENTES TECHNOLOGISTS NOTE: Pt unable to hold still due to pain and clautrophobiaeven though premedicated. Unable to do repeats. Best imagesachievable.mds COMPARISON: Lumbar spine CT from 12/06/2024 TECHNIQUE: Patient questionnaire was completed and was reviewed by MRIpersonnel prior to the patient entering the scanner. Multiplanar,multisequence MR imaging of the lumbar spine was performed withoutintravenous contrast. FINDINGS: Counting reference: Lumbosacral junction. L4-5 is at the level of theiliac crests, and there are 5 nonrib-bearing lumbar-type vertebral bodies. Alignment: Within normal limits. Vertebral Body Height: Maintained. Bone Marrow and Discs: No aggressive focal lesion or pathologic marrow infiltration. Postoperative changes of lumbar dorsal decompression andposterior segmental interbody fusion at L5-S1. Conus: Normal position and signal intensity. Clumping of the cauda equinanerve roots with slight leftward displacement of L4-5 suggestive ofarachnoiditis. Paraspinal Soft Tissues: Disruption of the dorsal paraspinous soft tissuesin the laminectomy bed with small dorsal postoperative fluid collection,1.6 x 3.0 x 2.3 cm T12-L1: No [...] and degenerative changes of the lumbar spine withoutsignificant spinal canal stenosis. Findings suggestive of arachnoiditis. arachnoiditis. MACRO: None Authorizing ProviderResult TypeResult StatusPj CUMMINGS MRIEdited Result - Final from Last 3 Months Insurance Advance Directives * Full Code (Latest Code Status on File) Date ActivatedDate VbsntfvseocEkyeowyn48/12/2025 6:24 AM05/12/2025 5:16 PM QuestionAnswerCommentsDocumentation of decision process for this code status:* Discussed with patient or surrogate.?? This is the code status chosen by the patient/surrogate. Care Teams Team MemberRelationshipSpecialtyStart DateEnd Date Pj Fuentes MD [address] [place], [place] [id number] PhysicianOrthopaedic Surgery01/28/25 Heather Lorenz APRN-LICHA [address] [place] [id number]/6/25
--- OUTSIDE RECORDS SUMMARY | 2025-05-14 04:01 | XMS_ITS | Patient Health Record ---
Author Organization [facility] in [place] Address [address] [place] [address] Care Team Providers Care Admissions Evaluator Name Role Phone Sacha Greenberg Primary Care Provider Allergies No Known Allergies Results Component Value Reference Range Notes XR lumbar spine 2-3V Reviewed date:07/04/2024 02:45:47 PM Interpretation: Performing Lab: Notes/Report: Source Facility: [place] [address] XRay Report Signed Patient: DOUG GOMEZ MR#: [id number] : 1990 Acct:[id number] Age/Sex: 34 / F ADM Date: 07/01/24 Loc: EC Attending Dr: Zachery Steele M.D. Ordering Physician: Zachery Steele M.D. Date of Service: 07/01/24 Procedure(s): XR lumbar spine 2-3V Accession Number(s): [id number] cc: Feng Greenberg M.D.; Zachery Steele M.D. [address] [address] Patient Name: DOUG GOMEZ MRN: [id number] date: 1990 Sex: F Assigned Patient Location: EC Current Patient Location: Accession/Order Number: [id number] Exam Date: 07/01/2024 10:05 Report Date: 07/04/2024 07:27 At the request of: ZACHERY STEELE Procedure: XR lumbar spine 2-3V EXAMINATION: XR lumbar spine 2-3V HISTORY: LUMBAR SPINE PAIN COMPARISON: No relevant comparison available. FINDINGS: BONES: Normal. No significant spondylosis, scoliosis, fracture, or visible bony lesion. DISC SPACES: Normal. No significant disc height narrowing, subluxation, or endplate abnormality. PARASPINOUS: Negative. No paraspinous abnormality is seen. OTHER: Negative. XR/XR lumbar spine 2-3V IMPRESSION: No acute abnormality. Electronically authenticated by: JOSE ALEJANDRO SAUCEDO Date: 07/04/2024 07:27 Dictated By: Jose Alejandro Sauecdo M.D. Signed By: 07/04/24729 DD/ 6 TD/TT: Electric Clock Mechanic: LIVER PROFILE Reviewed date:08/02/2024 02:26:13 PM Interpretation: Performing Lab: Notes/Report: [facility] , Bilirubin Total 0.4 0.2-1.0 mg/dL Bilirubin Direct0.10.0-0.2 mg/dLAspartate Amino Ikogqcbzbcw7294-69 U/LAlanine Rkheenwblauhisnh7896-52 U/LAlkaline Tdczsdeukxu7060-863 U/LTotal Protein7.66.4- 8.2 g/dLAlbumin Level4.13.4-5.0 g/dLGlobulin3.5Albumin Globulin Ratio1.2 Performing Lab:see noteML - [facility] LBPROF CHEM 8 (BAS METB) Reviewed date:08/02/2024 02:26:13 PM Interpretation: Performing Lab: Notes/Report: [facility] ,Ckiksc184677-339 mmol/LPotassium4.23.5-5.1 mmol/HBglmwljg25113-329 mmol/LCarbon Gltmcro20.221.0-32.0 mmol/LAnion Gap15.2Oamnfhu20700-897 mg/dLBlood Urea Ugaaiedx92.07.0-18.0 mg/dLCreatinine0.940.55-1.02 mg/dLEstimated GFR ( Deidre>60>=60 mL/min/1.73m 2Estimated GFR (Non- Misty>60>=60 mL/min/1.73m 2BUN Creatinine Ratio13.0Gdqdhsm9.38.5-10.1 mg/dLPerforming Lab:see noteML - [facility] LBPTT Reviewed date:08/02/2024 02:26:13 PM Interpretation: Performing Lab: Notes/Report: [facility] ,Partial Thromboplastin Time25.422.3-36.2 secPerforming Lab:see noteML - [facility] LBProthrombin Time INR Reviewed date:08/02/2024 02:26:13 PM Interpretation: Performing Lab: Notes/Report: [facility] ,Prothrombin Time10.59.0-11.6 secINR0.99 DESIRED INR: 2.0-3.0 CONDITIONS NOT LISTED BELOW 2.5-3.5 FOR PROSTHETIC HEART VALVE REPLACEMENT 2.5-3.5 RECURRENT THROMBOSIS Performing Lab:see noteML - [facility] LBMRSA Screening Culture Reviewed date:08/04/2024 06:45:01 PM Interpretation: Performing Lab: Notes/Report: [facility] ,MRSA Screening CultureSee Below For Report MRSA Screening Culture MRSA Screening CultureNegative MRSA Screening Culture MRSA Screening CulturePerformed at: CB - [facility] [place] MRSA Screening Culture MRSA Screening [address] [place], [place] [id number] MRSA Screening Culture MRSA Screening CultureLab Director: Han Proctor PhD, Phone: [phone] MRSA Screening Culture Performing Lab:see note LC - [facility] LB SEE REPORT - [employer] Kiln Burner Id information not found for OBX-specific honey 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 legend PROF CHEM 8 (BAS METB) Reviewed date:08/21/2024 10:16:20 AM Interpretation: Performing Lab: Notes/Report: [facility] ,Iqcfub710376-000 mmol/LPotassium3.63.5-5.1 mmol/PTzvtwpgf66838-640 mmol/LCarbon Xsgapgj89.021.0-32.0 mmol/LAnion Gap10.3Rgwafxg33082-263 mg/dLBlood Urea Fdiwlvjh22.07.0-18.0 mg/dLCreatinine0.940.55-1.02 mg/dLEstimated GFR ( Deidre>60>=60 mL/min/1.73m 2Estimated GFR (Non- Misty>60>=60 mL/min/1.73m 2BUN Creatinine Ratio10.8Rfdmrax1.48.5-10.1 mg/dLPerforming Lab:see noteML - [facility] LBXR lumbar spine 2-3V Reviewed date:08/21/2024 10:16:20 AM Interpretation: Performing Lab: Notes/Report: Source Facility: [facility] [place] [address] XRay Report Signed Patient: DOUG GOMEZ MR#: [id number] : 1990 Acct:[id number] Age/Sex: 34 / F ADM Date: 08/19/24 Loc: SURGOUT Attending Dr: Zachery Steele M.D. Ordering Physician: Zachery Steele M.D. Date of Service: 08/19/24 Procedure(s): XR lumbar spine 2-3V Accession Number(s): [id number] cc: Feng Greenberg M.D.; Zachery Steele M.D. [place] [address] Patient Name: DOUG GOMEZ MRN: [id number] date: 1990 Sex: F Assigned Patient Location: [facility] Current Patient Location: [facility] Accession/Order Number: [id number] Exam Date: 08/19/2024 10:28 Report Date: 08/19/2024 10:32 At the request of: ZACHERY STEELE MD Procedure: XR lumbar spine 2-3V PORTABLE LUMBAR SPINE - one view COMPARISON: 07/01/2024 CLINICAL DATA: Intraoperative assessment of lumbosacral fusion A single lateral prone view of the lumbar spine was obtained in the operating room. There are new posterior rods and pedicle screws at the lumbosacral junction. The hardware, as visualized appears intact and in appropriate position. No acute fractures or displacement are seen. The disc spaces are maintained. XR/XR lumbar spine 2-3V IMPRESSION: INTERVAL LUMBOSACRAL FUSION. Impression dictated by: Michaela Correia M.D.08/19/2024 10:32 AM Dictation Location: [place] [address] Electronically authenticated by: [id number] Y Date: 08/19/2024 10:32 Dictated By: Michaela Correia M.D. Signed By: 08/19/24 1034 DD/ 1032 TD/TT: Electric Clock Mechanic:PROF NEO Carroll (BAS METB) Reviewed date:08/21/2024 10:16:20 AM Interpretation: Performing Lab: Notes/Report: [facility] ,Ajnpzi615899-525 mmol/LPotassium4.43.5-5.1 mmol/PIvpjorsm45366-482 mmol/LCarbon Vbckvtu46.121.0-32.0 mmol/LAnion Gap9.5Khqxuie05804-176 mg/dLBlood Urea Nitrogen 5.07.0-18.0 mg/dLCreatinine0.760.55-1.02 mg/dLEstimated GFR ( Deidre>60 >=60 mL/min/1.73m 2Estimated GFR (Non- Misty>60>=60 mL/min/1.73m 2BUN Creatinine Ratio6.0Lxjogfw2.28.5-10.1 mg/dLPerforming Lab:see noteML - [facility] LBHEMOGRAM AND PLATEL Reviewed date:08/21/2024 10:16:20 AM Interpretation: Performing Lab: Notes/Report: [facility] ,Hemoglobin9.612.0-16.0 g/uIUhjivjcezx43.136.0-48.0 %Performing Lab:see noteML - [facility] LBPROF CHEM 8 (BAS METB) Reviewed date:08/21/2024 10:16:20 AM Interpretation: Performing Lab: Notes/Report: [facility] ,Sqnlmk761393-057 mmol/LPotassium3.73.5-5.1 mmol/DEfqzvneb20220-176 mmol/LCarbon Xjkbbwg55.221.0-32.0 mmol/LAnion Gap7.2Busxwlv2023-598 mg/dLBlood Urea Nitrogen 7.07.0-18.0 mg/dLCreatinine0.810.55-1.02 mg/dLEstimated GFR ( Deidre>60 >=60 mL/min/1.73m 2Estimated GFR (Non- Misty>60>=60 mL/min/1.73m 2BUN Creatinine Ratio8.6Ljknccl9.58.5-10.1 mg/dLPerforming Lab:see noteML - [facility] LBUA (CLEAN or CATCH) SPIKE MACHINE OPERATOR or MICRO IF IND. Reviewed date:10/10/2024 08:51:11 PM Interpretation: Performing Lab: Notes/Report: [facility] ,Color UrineLT. YELLOWYELLOWClarity UrineCLEARCLEARSpecific [place] Urine<=1.005 1.005-1.025pH Urine6.05.0-9.0Protein UrineNEGATIVENEG/TRACE mg/dLGlucose Urine UANEGATIVENEGATIVE mg/dLBilirubin UrineNEGATIVENEGATIVEKetones UrineNEGATIVE NEGATIVE mg/dLBlood UrineNEGATIVENEGATIVENitrite UrineNEGATIVENEGATIVE Urobilinogen Urine0.20.2-1.0 EU/dLLeukocyte Esterase UrineNEGATIVENEGATIVEUrine Microscopic IndicatedNOPerforming Lab:see noteML - [facility] LBMR lumbar spine wo con Reviewed date:11/13/2024 10:47:28 PM Interpretation: Performing Lab: Notes/Report: Source Facility: [place] [address] Magnetic Resonance Report Signed Patient: DOUG GOMEZ MR#: [id number] : 1990 Acct:[id number] Age/Sex: 34 / F ADM Date: 11/11/24 Loc: MRI Attending Dr: Bj KOWALSKI Ordering Physician: Bj Sunshine Date of Service: 11/11/24 Procedure(s): MR lumbar spine wo con Accession Number(s): [id number] cc: Bj Sunshine; Feng Greenberg M.D. [place] [address] Patient Name: DOUG GOMEZ MRN: [id number] date: 1990 Sex: F Assigned Patient Location: MRI Current Patient Location: MRI Accession/Order Number: [id number] Exam Date: 11/11/2024 14:51 Report Date: 11/11/2024 14:55 At the request of: BJ KOWALSKI Procedure: MR lumbar spine wo con MR lumbar spine wo con 11/11/2024 10:48 AM SIGNS AND SYMPTOMS: Chronic low back pain with radiculopathy, history of spinal fusion PROTOCOL: Multiplanar multisequence MR images of the lumbar spine without IV contrast COMPARISON: 09/30/2024. FINDINGS: The bones of the lumbar spine are in anatomic alignment. There is preservation of vertebral body heights. Posterior fusion and decompression is noted at L5-S1. 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 There is a benign-appearing hemangioma in the L3 vertebral body. The conus terminates at the superior endplate of the L2 vertebral body level. No epidural or paraspinous fluid collection is appreciated. At T12-L1: There is a normal disc, central canal, and neural foramen. At L1-L2: There is a normal disc, central canal, and neural foramen. At L2-L3: There is a normal disc, central canal, and neural foramen. At L3-L4: There is a normal disc, central canal, and neural foramen. At L4-L5: There is a normal disc, central canal, and neural foramen. At L5-S1: There is a normal disc, central canal, and neural foramen. MR/MR lumbar spine wo con IMPRESSION: Posterior fusion and decompression is noted at L5-S1. 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 No significant spinal canal or neural foraminal stenosis. Impression dictated by: Fabián Tovar M.D. 11/11/2024 2:55 PM Dictation Location: [place] [address] Electronically authenticated by: [id number] Y Date: 11/11/2024 14:55 Dictated By: Fabián Tovar M.D. Signed By: 11/11/24 1458 DD/ 1455 TD/TT: Electric Clock Mechanic:CBC AUTO DIFF Reviewed date:12/03/2024 05:32:09 PM Interpretation: Performing Lab: Notes/Report: [facility] ,White Blood Count8.74.0-11.0 10 3/uLRed Blood Count4.604.20-5.40 10 6/uL Txirvvkoea48.312.0-16.0 g/gWUqqcguvbqz54.936.0-48.0 %Mean Corpuscular Qpywiq17.9 81.0-99.0 fLMean Corpuscular Tcrercmxxu17.626.7-34.0 pgMean Corpuscular HGB Conc 32.429.9-35.2 g/dLRed Cell Distribution Width15.711.0-15.0 %Platelet Hvqhj136 150-450 10 3/uLMean Platelet Fzceyu27.99.5-13.5 fLNeutrophils Percent Auto61.1 43.0-75.0 %Lymphocytes Percent Auto27.720.5-60.0 %Monocytes Percent Auto8.31.7- 12.0 %Eosinophils Percent Auto2.10.9-7.0 %Basophils Percent Auto0.50.2-2.0 % Immature Granulocytes Pct Auto0.30.0-0.5 %Neutrophils Absolute Auto5.31.4-6.5 10 3/uLLymphocytes Absolute Auto2.41.2-3.8 10 3/uLMonocytes Absolute Auto0.70.3-0.8 10 3/uLEosinophils Absolute Auto0.20.0-0.7 10 3/uLBasophils Absolute Auto0.00.0- 0.1 10 3/uLImmature Granulocytes Abs Auto0.030.00-0.03 10 3/uLPerforming Lab:see noteML - [facility] LBPROF CHEM 8 (BAS METB) Reviewed date:12/03/2024 05:32:10 PM Interpretation: Performing Lab: Notes/Report: [facility] ,Obvrqi854599-947 mmol/LPotassium4.33.5-5.1 mmol/PMkzedudu28728-125 mmol/LCarbon Icgznuk64.921.0-32.0 mmol/LAnion Gap12.7Pvyvtht7034-215 mg/dLBlood Urea Nitrogen 15.07.0-18.0 mg/dLCreatinine0.690.55-1.02 mg/dLEstimated GFR ( Deidre>60 >=60 mL/min/1.73m 2Estimated GFR (Non- Misty>60>=60 mL/min/1.73m 2BUN Creatinine Ratio21.9Ezjjiba5.38.5-10.1 mg/dLPerforming Lab:see noteML - [facility] LBHCG Qualitative* Reviewed date:12/03/2024 05:32:10 PM Interpretation: Performing Lab: Notes/Report: [facility] ,HCG QualitativeNEGATIVENEGATIVEPerforming Lab:see note - [facility] LBXR chest 2V Reviewed date:12/03/2024 05:32:10 PM Interpretation: Performing Lab: Notes/Report: Source Facility: [facility] [place] [address] XRay Report Signed Patient: DOUG GOMEZ MR#: [id number] : 1990 Acct:[id number] Age/Sex: 34 / F ADM Date: 12/02/24 Loc: SURGOUT Attending Dr: Zachery Steele M.D. Ordering Physician: Zachery Steele M.D. Date of Service: 12/02/24 Procedure(s): XR chest 2V Accession Number(s): [id number] cc: Feng Greenberg M.D.; Zachery Steele M.D. [place] [address] Patient Name: DOUG GOMEZ MRN: [id number] date: 1990 Sex: F [facility] Location: [facility] Accession/Order Number: [id number] Exam Date: 12/02/2024 10:51 Report Date: 12/02/2024 10:52 At the request of: ZACHERY STEELE MD Procedure: XR chest 2V PA AND LATERAL CHEST: CLINICAL HISTORY: Preoperative clearance. History of vaping. COMPARISON: 08/02/2024 There is no focal parenchymal consolidation, effusion or pneumothorax. The cardiac, hilar and mediastinal silhouettes are within normal limits. There is no vascular congestion. The visualized bony thorax is intact. XR/XR chest 2V IMPRESSION: NO ACUTE CARDIOPULMONARY ABNORMALITY. Impression dictated by: Michaela Correia M.D. 12/02/2024 10:52 AM Dictation Location: [place] [address] Electronically authenticated by: [id number] Y Date: 12/02/2024 10:52 Dictated By: Michaela Correia M.D. Signed By: 12/02/24 1054 DD/ 1052 TD/TT: Electric Clock Mechanic:CT head/brain wo con Reviewed date:12/03/2024 05:32:10 PM Interpretation: Performing Lab: Notes/Report: Source Facility: [place] [address] CT Scan Report Signed Patient: DOUG GOMEZ MR#: [id number] : 1990 Acct:[id number] Age/Sex: 34 / F ADM Date: 12/02/24 Loc: SURGOUT Attending Dr: Zachery Steele M.D. Ordering Physician: Feng Greenberg M.D. Date of Service: 12/02/24 Procedure(s): CT head/brain wo con Accession Number(s): [id number] cc: Feng Greenberg M.D. [place] [address] Patient Name: DOUG GOMEZ MRN: [id number] date: 1990 Sex: F Assigned Patient Location: [facility] Current Patient Location: [facility] Accession/Order Number: [id number] Exam Date: 12/02/2024 16:24 Report Date: 12/02/2024 16:29 At the request of: FENG GREENBERG MD Procedure: CT cervical spine wo con Unenhanced head CT TECHNIQUE: Contiguous axial imaging of the head. The CT exam was performed using one or more the following dose reduction techniques: Automated exposure control, adjustment of the MA and/or Kv according to patient size, or use of the iterative reconstruction technique. COMPARISON: None HISTORY: Mental status change. Headache. Post lumbar nodule repair for CSF leak. VENTRICLES: Within normal limits ATROPHY: None BRAIN PARENCHYMA: Adequate finn-white matter differentiation identified. HEMORRHAGE: None HERNIATION: No mass effect or herniation INFARCTION: No recent vascular distribution infarction is seen. EXTRA-AXIAL FLUID COLLECTIONS None MIDBRAIN: Unremarkable TED: Unremarkable MEDULLA: Unremarkable SINUSES: Unremarkable ORBITS: Grossly unremarkable MASTOIDS: Unremarkable BONY STRUCTURES Intact ADDITIONAL FINDINGS: CT/CT head/brain wo con IMPRESSION: No acute findings. CT Cervical Spine withoutcontrast TECHNIQUE: Axial imaging with 2-D and 3-D reconstruction. The CT exam was performed using one or more the following dose reduction techniques: Automated exposure control, adjustment of the MA and/or Kv according to patient size, or use of the iterative reconstruction technique. COMPARISON: 10/31/2024 HISTORY: Mental status change. POST SURGERY CHANGES: None BONY ALIGNMENT: Adequate BONY SPINAL CANAL: Patent central bony canal FRACTURE: None BONY LESIONS: None SOFT TISSUES: Unremarkable DEGENERATIVE CHANGES: None LUNG APICES: Unremarkable ADDITIONAL FINDINGS: Heterogeneous density of the thyroid gland IMPRESSION: No acute process Impression dictated by: Nolberto Ceja M.D. 12/02/2024 4:29 PM Dictation Location: [place] [address] Electronically authenticated by: [id number] Y Date: 12/02/2024 16:29 Dictated By: Nolberto Ceja D.O. Signed By: 12/02/24 1632 DD/ 1629 TD/TT: Electric Clock Mechanic:CT cervical spine wo con Reviewed date:12/03/2024 05:32:10 PM Interpretation: Performing Lab: Notes/Report: Source Facility: [place] [address] [place] [address] CT Scan Report Signed Patient: DOUG GOMEZ MR#: [id number] : 1990 Acct:[id number] Age/Sex: 34 / F ADM Date: 12/02/24 Loc: SURGOUT Attending Dr: Zachery Steele M.D. Ordering Physician: Feng Greenberg M.D. Date of Service: 12/02/24 Procedure(s): CT cervical spine wo con Accession Number(s): [id number] cc: Feng Greenberg M.D. [address] [address] Patient Name: DOUG GOMEZ MRN: [facility]:[id number] date: 1990 Sex: F [facility]igned [facility] Current Patient Location: [facility] Accession/Order Number: [id number] Exam Date: 12/02/2024 16:24 Report Date: 12/02/2024 16:29 At the request of: FENG GREENBERG MD Procedure: CT cervical spine wo con Unenhanced head CT TECHNIQUE: Contiguous axial imaging of the head. The CT exam was performed using one or more the following dose reduction techniques: Automated exposure control, adjustment of the MA and/or Kv according to patient size, or use of the iterative reconstruction technique. COMPARISON: None HISTORY: Mental status change. Headache. Post lumbar nodule repair for CSF leak. VENTRICLES: Within normal limits ATROPHY: None BRAIN PARENCHYMA: Adequate finn-white matter differentiation identified. HEMORRHAGE: None HERNIATION: No mass effect or herniation INFARCTION: No recent vascular distribution infarction is seen. EXTRA-AXIAL FLUID COLLECTIONS None MIDBRAIN: Unremarkable TED: Unremarkable MEDULLA: Unremarkable SINUSES: Unremarkable ORBITS: Grossly unremarkable MASTOIDS: Unremarkable BONY STRUCTURES Intact ADDITIONAL FINDINGS: CT/CT cervical spine wo con IMPRESSION: No acute findings. CT Cervical Spine withoutcontrast TECHNIQUE: Axial imaging with 2-D and 3-D reconstruction. The CT exam was performed using one or more the following dose reduction techniques: Automated exposure control, adjustment of the MA and/or Kv according to patient size, or use of the iterative reconstruction technique. COMPARISON: 10/31/2024 HISTORY: Mental status change. POST SURGERY CHANGES: None BONY ALIGNMENT: Adequate BONY SPINAL CANAL: Patent central bony canal FRACTURE: None BONY LESIONS: None SOFT TISSUES: Unremarkable DEGENERATIVE CHANGES: None LUNG APICES: Unremarkable ADDITIONAL FINDINGS: Heterogeneous density of the thyroid gland IMPRESSION: No acute process Impression dictated by: Nolberto Ceja M.D. 12/02/2024 4:29 PM Dictation Location: [employer] Electronically authenticated by: [id number] Y Date: 12/02/2024 16:29 Dictated By: Nolberto Ceja D.O. Signed By: 12/02/24 1632 DD/ 1629 TD/TT: Electric Clock Mechanic:CBC AUTO DIFF (Not yet reviewed by provider) Interpretation: Performing Lab: Notes/Report: [facility] ,White Blood Count6.84.0-11.0 10 3/uLRed Blood Count3.354.20-5.40 10 6/uL Hemoglobin8.012.0-16.0 g/aROjeftspcmj85.336.0-48.0 %Mean Corpuscular Dhoqhc38.5 81.0-99.0 fLMean Corpuscular Vevxjecrge06.926.7-34.0 pgMean Corpuscular HGB Conc 32.929.9-35.2 g/dLRed Cell Distribution Width16.111.0-15.0 %Platelet Hvoar271 150-450 10 3/uLMean Platelet Lspsym58.29.5-13.5 fLNeutrophils Percent Auto63.8 43.0-75.0 %Lymphocytes Percent Auto24.320.5-60.0 %Monocytes Percent Auto8.81.7- 12.0 %Eosinophils Percent Auto2.20.9-7.0 %Basophils Percent Auto0.60.2-2.0 % Immature Granulocytes Pct Auto0.30.0-0.5 %Neutrophils Absolute Auto4.41.4-6.5 10 3/uLLymphocytes Absolute Auto1.71.2-3.8 10 3/uLMonocytes Absolute Auto0.60.3-0.8 10 3/uLEosinophils Absolute Auto0.20.0-0.7 10 3/uLBasophils Absolute Auto0.00.0- 0.1 10 3/uLImmature Granulocytes Abs Auto0.020.00-0.03 10 3/uLPerforming Lab:see noteML - [facility] LBPROF CHEM 8 (BAS METB) (Not yet reviewed by provider) Interpretation: Performing Lab: Notes/Report: [facility] ,Titmzf230491-188 mmol/LPotassium3.43.5-5.1 mmol/IYwsbimzz22702-072 mmol/LCarbon Hrwygzw07.021.0-32.0 mmol/LAnion Gap14.0Rplgyin79085-002 mg/dLBlood Urea Nitrogen4.07.0-18.0 mg/dLCreatinine0.730.55-1.02 mg/dLEstimated GFR ( Deidre>60>=60 mL/min/1.73m 2Estimated GFR (Non- Misty>60>=60 mL/min/1.73m 2BUN Creatinine Ratio5.9Iljbkne2.88.5-10.1 mg/dLPerforming Lab:see note - [facility] LBHCG Qualitative* (Not yet reviewed by provider) Interpretation: Performing Lab: Notes/Report: [facility] ,[facility] QualitativeNEGATIVENEGATIVEPerforming Lab:see [facility] LBCT head/brain wo con Reviewed date:12/06/2024 04:29:56 PM Interpretation: Performing Lab: Notes/Report: Source Facility: [place] [address] CT Scan Report Signed Patient: DOUG GOMEZ MR#: [id number] : 1990 Acct:[id number] Age/Sex: 34 / F ADM Date: 12/06/24 Loc: ER Attending Dr: Ordering Physician: Mirian Schmidt Date of Service: 12/06/24 Procedure(s): CT head/brain wo con Accession Number(s): [id number] cc: Feng Greenberg M.D. [place] [address] Patient Name: DOUG GOMEZ MRN: [id number] date: 1990 Sex: F Assigned Patient Location: ER Current Patient Location: ER Accession/Order Number: [id number] Exam Date: 12/06/2024 14:47 Report Date: 12/06/2024 14:57 At the request of: MIRIAN SCHMIDT MD Procedure: CT lumbar spine w con Unenhanced head CT TECHNIQUE: Contiguous axial imaging of the head. The CT exam was performed using one or more the following dose reduction techniques: Automated exposure control, adjustment of the MA and/or Kv according to patient size, or use of the iterative reconstruction technique. COMPARISON: None HISTORY: Recent spine surgery. Clear fluid and a drain one day ago. Headache. VENTRICLES: Within normal limits ATROPHY: None BRAIN PARENCHYMA: Adequate finn-white matter differentiation identified. HEMORRHAGE: None HERNIATION: No mass effect or herniation INFARCTION: No recent vascular distribution infarction is seen. EXTRA-AXIAL FLUID COLLECTIONS None MIDBRAIN: Unremarkable TED: Unremarkable MEDULLA: Unremarkable SINUSES: Unremarkable ORBITS: Grossly unremarkable MASTOIDS: Unremarkable BONY STRUCTURES Intact ADDITIONAL FINDINGS: CT/CT head/brain wo con IMPRESSION: No acute findings. CT LUMBAR SPINE WITH CONTRAST TECHNIQUE: Axial acquisition of the lumbar spine obtained with the sagittal and coronal reconstructed imaging.The CT exam was performed using one or more the following dose reduction techniques: Automated exposure control, adjustment of the MA and/or Kv according to patient size, or use of the iterative reconstruction technique. 100 cc of Omnipaque 300 HISTORY: As above COMPARISON: 11/11/2024 FINDINGS: The last fully segmented vertebral pair is operationally defined as L5/S1. POST SURGERY CHANGES: L5-S1 posterior fusion. No hardware complication. Posterior decompression. 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 Similar size compared to prior examination. Maximal measurement 6.4 cm.. BONY ALIGNMENT: Adequate bony alignment identified. SPINAL CANAL:Patent bony central canal LUMBAR FRACTURE: None BONY LESIONS: L3-4 vertebral body hemangioma redemonstrated. KIDNEYS: No hydronephrosis is identified. AORTA: No aortic aneurysm is seen. 3 cm left ovarian cyst. Lower thoracic level: Unremarkable L1-2:Unremarkable L2-3: Unremarkable L3-4:Unremarkable L4-5:Unremarkable L5-S1:Unremarkable Assessment of disc herniation limited with CT examination. No obvious disc herniation seen with CT exam. 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 No acute lumbar spine findings. 3 cm left ovarian cyst Impression dictated by: Nolberto Ceja M.D. 12/06/2024 2:57 PM Dictation Location: [place] [address] Electronically authenticated by: [id number] Y Date: 12/06/2024 14:57 Dictated By: Nolberto Cjea D.O. Signed By: 12/06/24 1459 DD/ 1457 TD/TT: Electric Clock Mechanic:LACTATE or LACTIC ACID Reviewed date:12/06/2024 04:29:56 PM Interpretation: Performing Lab: Notes/Report: [facility] ,Lactate/Lactic Acid1.40.4-2.0 mmol/LPerforming Lab:see noteML - [facility] LBCT head/brain wo con Reviewed date:10/31/2024 02:45:57 PM Interpretation: Performing Lab: Notes/Report: Source Facility: [place] [address] [place] [address] CT Scan Report Signed Patient: DOUG GOMEZ MR#: [id number] : 1990 Acct:[id number] Age/Sex: 34 / F ADM Date: 10/31/24 Loc: CT Attending Dr: Feng Greenberg M.D. Ordering Physician: Feng Greenberg M.D. Date of Service: 10/31/24 Procedure(s): CT head/brain wo con Accession Number(s): [id number] cc: Feng Greenberg M.D. [place] [address] Patient Name: DOUG GOMEZ MRN: [id number] date: 1990 Sex: F Assigned Patient Location: CT Current Patient Location: CT Accession/Order Number: [id number] Exam Date: 10/31/2024 12:05 Report Date: 10/31/2024 12:06 At the request of: FENG GREENBERG MD Procedure: CT head/brain wo con CT BRAIN WITHOUT CONTRAST: CLINICAL HISTORY: Migraine COMPARISON: CT brain 10/10/2024 TECHNIQUE: Contiguous axial unenhanced images were obtained through the brain. This CT exam was performed using one or more following dose reduction techniques: Automated exposure control, adjustment of the mA and/or kV according to patient size, or use of iterative reconstruction technique. FINDINGS: There is no evidence of midline shift, intra or extra-axial fluid collection, hemorrhage or CT evidence of stroke. Posterior fossa appears unremarkable. Visualized intraorbital contents demonstrate no acute findings. Visualized paranasal sinuses are clear. The surrounding soft tissues are normal. CT/CT head/brain wo con IMPRESSION: NO ACUTE INTRACRANIAL ABNORMALITY. Impression dictated by: Cliff Luna Jr., D.O. 10/31/2024 12:06 PM Dictation Location: [place] [address] Electronically authenticated by: [id number] Y Date: 10/31/2024 12:06 Dictated By: Cliff Luna M.D. Signed By: 10/31/24 1209 DD/ 1206 TD/TT: Electric Clock Mechanic:US right upper quadrant Reviewed date:10/12/2024 01:59:41 PM Interpretation: Performing Lab: Notes/Report: Source Facility: [place] [address] Ultrasound Report Signed Patient: DOUG GOMEZ MR#: [id number] : 1990 Acct:[id number] Age/Sex: 34 / F ADM Date: 10/12/24 Loc: US Attending Dr: Feng Greenberg M.D. Ordering Physician: Feng Greenberg M.D. Date of Service: 10/12/24 Procedure(s): US right upper quadrant Accession Number(s): [id number] cc: Feng Greenberg M.D. [place] [address] Patient Name: DOUG GOMEZ MRN: [facility]:[id number] date: 1990 Sex: F Assigned Patient Location: US Current Patient Location: US Accession/Order Number: [id number] Exam Date: 10/12/2024 10:52 Report Date: 10/12/2024 10:58 At the request of: FENG GREENBERG MD Procedure: US right upper quadrant LIMITED RIGHT UPPER QUADRANT ABDOMINAL ULTRASOUND CLINICAL HISTORY: Elevated Lipase R74.8 COMPARISON: 07/06/[address] 06/06/2021 The gallbladder is partially contracted and the wall appears slightly thickened. There are no echogenic shadowing gallstones or pericholecystic fluid. No intra- or extrahepatic biliary dilatation is evident. The common duct measures 3-4 mm. The liver is normal in echogenicity. No intrahepatic masses are seen. There is appropriate hepatopetal flow within the main portal vein. The pancreas shows no significant sonographic abnormality. Cursory evaluation of the right kidney reveals no hydronephrosis or fluid within Ryan's pouch. A similar cystic structure is visualized between the stomach and left hepatic lobe measuring 2.3 x 1.8 x 2.7 cm. Etiology and significance is uncertain. It was not identified on the comparison CT study. US/US right upper quadrant IMPRESSION: PARTIALLY CONTRACTED GALLBLADDER, WITHOUT STONES. NO OTHER ACUTE FINDINGS. . Impression dictated by: Michaela Correia M.D.10/12/2024 10:58 AM Dictation Location: [place] [address] Electronically authenticated by: [id number] Y Date: 10/12/2024 10:58 Dictated By: Michaela Correia M.D. Signed By: 10/12/24 1100 DD/ 1058 TD/TT: Electric Clock Mechanic:PROF NEO Carroll ([facility]) Reviewed date:10/10/2024 08:51:11 PM Interpretation: Performing Lab: Notes/Report: [facility] ,Xrbuzy921235-037 mmol/LPotassium4.53.5-5.1 mmol/BMcdxxaaq22339-299 mmol/LCarbon Bfvynsk99.421.0-32.0 mmol/LAnion Gap14.5Xwaubbd8882-834 mg/dLBlood Urea Nitrogen 13.07.0-18.0 mg/dLCreatinine0.730.55-1.02 mg/dLEstimated GFR ( Deidre>60 >=60 mL/min/1.73m 2Estimated GFR (Non- Misty>60>=60 mL/min/1.73m 2BUN Creatinine Ratio17.4Mirqahe9.88.5-10.1 mg/dLPerforming Lab:see noteML - [facility] LBLIVER PROFILE Reviewed date:10/10/2024 08:51:11 PM Interpretation: Performing Lab: Notes/Report: [facility] ,Bilirubin Total0.20.2-1.0 mg/dLBilirubin Direct<0.10.0-0.2 mg/dLAspartate Amino Ecegfgimsrb2065-14 U/LAlanine Flixivkzujdjqnuo1450-03 U/LAlkaline Vtxwmtbikrs72 46-116 U/LTotal Protein7.26.4-8.2 g/dLAlbumin Level3.63.4-5.0 g/dLGlobulin3.6 Albumin Globulin Ratio1.0Performing Lab:see noteML - [facility] LB LIPASE Reviewed date:10/10/2024 08:51:11 PM Interpretation: Performing Lab: Notes/Report: [facility] ,Vimseo419.016.0-77.0 U/LPerforming Lab:see noteML - [facility] LBCBC AUTO DIFF Reviewed date:10/10/2024 08:51:11 PM Interpretation: Performing Lab: Notes/Report: [facility] ,White Blood Count8.14.0-11.0 10 3/uLRed Blood Count4.344.20-5.40 10 6/uL Fyszuyxnvm10.012.0-16.0 g/bHLarihchhwk47.936.0-48.0 %Mean Corpuscular Geuhsr73.4 81.0-99.0 fLMean Corpuscular Istdbrfoyg17.326.7-34.0 pgMean Corpuscular HGB Conc 31.529.9-35.2 g/dLRed Cell Distribution Width14.511.0-15.0 %Platelet Rfdcq913 150-450 10 3/uLMean Platelet Jzegmf03.09.5-13.5 fLNeutrophils Percent Auto65.0 43.0-75.0 %Lymphocytes Percent Auto23.920.5-60.0 %Monocytes Percent Auto9.21.7- 12.0 %Eosinophils Percent Auto1.20.9-7.0 %Basophils Percent Auto0.50.2-2.0 % Immature Granulocytes Pct Auto0.20.0-0.5 %Neutrophils Absolute Auto5.31.4-6.5 10 3/uLLymphocytes Absolute Auto1.91.2-3.8 10 3/uLMonocytes Absolute Auto0.80.3-0.8 10 3/uLEosinophils Absolute Auto0.10.0-0.7 10 3/uLBasophils Absolute Auto0.00.0- 0.1 10 3/uLImmature Granulocytes Abs Auto0.020.00-0.03 10 3/uLPerforming Lab:see noteML - [facility] LBXR lumbar spine 2-3V Reviewed date:10/02/2024 03:56:56 PM Interpretation: Performing Lab: Notes/Report: Source Facility: [facility] [place] [address] [place] [address] XRay Report Signed Patient: DOUG GOMEZ MR#: [id number] : 1990 Acct:[id number] Age/Sex: 34 / F ADM Date: 09/30/24 Loc: EC Attending Dr: Zachery Steele M.D. Ordering Physician: Zachery Steele M.D. Date of Service: 09/30/24 Procedure(s): XR lumbar spine 2-3V Accession Number(s): [id number] cc: Feng Greenberg M.D.; Zachery Steele M.D. [place] [address] Patient Name: DOUG GOMEZ MRN: [id number] date: 1990 Sex: F Assigned Patient Location: Current Patient Location: Accession/Order Number: [id number] Exam Date: 09/30/2024 10:44 Report Date: 09/30/2024 10:46 At the request of: ZACHERY STEELE MD Procedure: XR lumbar spine 2-3V LUMBAR SPINE - 2 views COMPARISON: 09/09/2024 CLINICAL DATA: Low back pain radiating to the hips over the past week with numbness and tingling at the legs. Recent back surgery. AP and lateral weightbearing views were obtained. There is redemonstration of laminectomy and fusion at the lumbosacral junction with posterior rods and pedicle screws. The hardware appears intact and unchanged from the prior. The disc spaces are maintained. No prominent hypertrophy is seen. The SI joints are intact. There are no paraspinal soft tissue abnormalities. XR/XR lumbar spine 2-3V IMPRESSION: STABLE LUMBOSACRAL FUSION. NO ACUTE BONY FINDINGS. Impression dictated by: Michaela Correia M.D.09/30/2024 10:46 AM Dictation Location: [place] [address] Electronically authenticated by: [id number] Y Date: 09/30/2024 10:46 Dictated By: Michaela Correia M.D. Signed By: 09/30/24 1048 DD/ 1046 TD/TT: Electric Clock Mechanic:XR shoulder RT min 2V Reviewed date:09/11/2024 03:51:11 PM Interpretation: Performing Lab: Notes/Report: Source Facility: [place] [address] XRay Report Signed Patient: DOUG GOMEZ MR#: [id number] : 1990 Acct:[id number] Age/Sex: 34 / F ADM Date: 09/09/24 Loc: ER Attending Dr: Ordering Physician: Nolberto Palm Date of Service: 09/09/24 Procedure(s): XR shoulder RT min 2V Accession Number(s): [id number] cc: Feng Greenberg M.D.; Nolberto Palm [place] [address] Patient Name: DOUG GOMEZ MRN: [id number] date: 1990 Sex: F Assigned Patient Location: ER Current Patient Location: ER Accession/Order Number: [id number] Exam Date: 09/09/2024 11:37 Report Date: 09/09/2024 11:43 At the request of: NOLBERTO PALM MD Procedure: XR shoulder RT min 2V CLINICAL DATA: Patient fell 2 days ago and has continued neck, right shoulder and right hip pain. .Recent low back surgery. CERVICAL SPINE - 3 views: COMPARISON: None AP, lateral and odontoid views were obtained. There is no evidence of compression fracture or displacement. There is no significant degenerative change. The atlantoaxial relationship is maintained. There is no prevertebral soft tissue swelling. XR/XR shoulder RT min 2V IMPRESSION: NO ACUTE BONY INJURY. RIGHT SHOULDER - 3 views COMPARISON: None AP, Y and Grashey views were obtained. There is no evidence of fracture or dislocation. There are no significant soft tissue abnormalities. IMPRESSION: NO ACUTE BONY INJURY. LUMBAR SPINE - 2 views COMPARISON: 08/19/2024 and 07/01/2019 AP and lateral views were obtained. There is redemonstration of laminectomy and fusion at the lumbosacral junction with posterior rods and pedicle screws. The hardware appears intact and similar to the comparison. No developing fractures or displacement are seen. The disc spaces are maintained. There is minimal endplate spurring. The SI joints are intact. No paraspinal soft tissue abnormalities are identified. IMPRESSION: STABLE LUMBOSACRAL FUSION. NO ACUTE FINDINGS. Impression dictated by: Michaela Correia M.D.09/09/2024 11:43 AM Dictation Location: [place] [address] Electronically authenticated by: [id number] Y Date: 09/09/2024 11:43 Dictated By: Michaela Correia M.D. Signed By: 09/09/24 1146 DD/ 1143 TD/TT: Electric Clock Mechanic:XR cervical spine 2-3V Reviewed date:09/11/2024 03:51:11 PM Interpretation: Performing Lab: Notes/Report: Source Facility: [place] [address] [place] [address] XRay Report Signed Patient: DOUG GOMEZ MR#: [id number] : 1990 Acct:[id number] Age/Sex: 34 / F ADM Date: 09/09/24 Loc: ER Attending Dr: Ordering Physician: Nolberto Palm Date of Service: 09/09/24 Procedure(s): XR cervical spine 2-3V Accession Number(s): [id number] cc: Feng Greenberg M.D.; Nolberto Palm [place] [address] Patient Name: DOUG GOMEZ MRN: [facility]:[id number] date: 1990 Sex: F Assigned Patient Location: ER Current Patient Location: ER Accession/Order Number: [id number] Exam Date: 09/09/2024 11:37 Report Date: 09/09/2024 11:43 At the request of: NOLBERTO PALM MD Procedure: XR shoulder RT min 2V CLINICAL DATA: Patient fell 2 days ago and has continued neck, right shoulder and right hip pain. .Recent low back surgery. CERVICAL SPINE - 3 views: COMPARISON: None AP, lateral and odontoid views were obtained. There is no evidence of compression fracture or displacement. There is no significant degenerative change. The atlantoaxial relationship is maintained. There is no prevertebral soft tissue swelling. XR/XR cervical spine 2-3V IMPRESSION: NO ACUTE BONY INJURY. RIGHT SHOULDER - 3 views COMPARISON: None AP, Y and Grashey views were obtained. There is no evidence of fracture or dislocation. There are no significant soft tissue abnormalities. IMPRESSION: NO ACUTE BONY INJURY. LUMBAR SPINE - 2 views COMPARISON: 08/19/2024 and 07/01/2019 AP and lateral views were obtained. There is redemonstration of laminectomy and fusion at the lumbosacral junction with posterior rods and pedicle screws. The hardware appears intact and similar to the comparison. No developing fractures or displacement are seen. The disc spaces are maintained. There is minimal endplate spurring. The SI joints are intact. No paraspinal soft tissue abnormalities are identified. IMPRESSION: STABLE LUMBOSACRAL FUSION. NO ACUTE FINDINGS. Impression dictated by: Michaela Correia M.D.09/09/2024 11:43 AM Dictation Location: [place] [address] Electronically authenticated by: [id number] Y Date: 09/09/2024 11:43 Dictated By: Michaela Correia M.D. Signed By: 09/09/24 1146 DD/ 1143 TD/TT: Electric Clock Mechanic:XR lumbar spine 2-3V Reviewed date:09/11/2024 03:51:11 PM Interpretation: Performing Lab: Notes/Report: Source Facility: [place] [address] [place] [address] XRay Report Signed Patient: DOUG GOMEZ MR#: [id number] : 1990 Acct:[id number] Age/Sex: 34 / F ADM Date: 09/09/24 Loc: ER Attending Dr: Ordering Physician: Nolberto Palm Date of Service: 09/09/24 Procedure(s): XR lumbar spine 2-3V Accession Number(s): [id number] cc: Feng Greenberg M.D.; Nolberto Palm [address] [address] Patient Name: DOUG GOMEZ MRN: [id number] date: 1990 Sex: F Assigned Patient Location: ER Current Patient Location: ER Accession/Order Number: [id number] Exam Date: 09/09/2024 11:37 Report Date: 09/09/2024 11:43 At the request of: NOLBERTO PALM MD Procedure: XR shoulder RT min 2V CLINICAL DATA: Patient fell 2 days ago and has continued neck, right shoulder and right hip pain. .Recent low back surgery. CERVICAL SPINE - 3 views: COMPARISON: None AP, lateral and odontoid views were obtained. There is no evidence of compression fracture or displacement. There is no significant degenerative change. The atlantoaxial relationship is maintained. There is no prevertebral soft tissue swelling. XR/XR lumbar spine 2-3V IMPRESSION: NO ACUTE BONY INJURY. RIGHT SHOULDER - 3 views COMPARISON: None AP, Y and Grashey views were obtained. There is no evidence of fracture or dislocation. There are no significant soft tissue abnormalities. IMPRESSION: NO ACUTE BONY INJURY. LUMBAR SPINE - 2 views COMPARISON: 08/19/2024 and 07/01/2019 AP and lateral views were obtained. There is redemonstration of laminectomy and fusion at the lumbosacral junction with posterior rods and pedicle screws. The hardware appears intact and similar to the comparison. No developing fractures or displacement are seen. The disc spaces are maintained. There is minimal endplate spurring. The SI joints are intact. No paraspinal soft tissue abnormalities are identified. IMPRESSION: STABLE LUMBOSACRAL FUSION. NO ACUTE FINDINGS. Impression dictated by: Michaela Correia M.D.09/09/2024 11:43 AM Dictation Location: [place] [address] Electronically authenticated by: [id number] Y Date: 09/09/2024 11:43 Dictated By: Michaela Correia M.D. Signed By: 09/09/24 1146 DD/ 1143 TD/TT: Electric Clock Mechanic:HEMOGRAM AND PLATEL Reviewed date:08/21/2024 10:16:20 AM Interpretation: Performing Lab: Notes/Report: [facility] ,Hemoglobin8.912.0-16.0 g/jVTbgukarvjs85.136.0-48.0 %Performing Lab:see note - [facility] LBHCG Qualitative* Reviewed date:08/21/2024 10:16:20 AM Interpretation: Performing Lab: Notes/Report: [facility] ,HCG QualitativeNEGATIVENEGATIVEPerforming Lab:see [facility] LBHEMOGRAM AND PLATEL Reviewed date:08/21/2024 10:16:20 AM Interpretation: Performing Lab: Notes/Report: [facility] ,Firlmsmcfs79.012.0-16.0 g/tNZzrcrdbmbv08.536.0-48.0 %Performing Lab:see [facility] LBXR chest 2V Reviewed date:08/04/2024 12:55:01 PM Interpretation: Performing Lab: Notes/Report: Source Facility: [facility]-[address] [place] [address] [place] [address] XRay Report Signed Patient: DOUG GOMEZ MR#: [id number] : 1990 Acct:[id number] Age/Sex: 34 / F ADM Date: 08/02/24 Loc: PST Attending Dr: Zachery Steele M.D. Ordering Physician: Zachery Steele M.D. Date of Service: 08/02/24 Procedure(s): XR chest 2V Accession Number(s): [id number] cc: Feng Greenberg M.D.; Zachery Steele M.D. [address] [address] Patient Name: DOUG GOMEZ MRN: [id number] date: 1990 Sex: F Assigned Patient Location: [facility] Current Patient Location: Accession/Order Number: [id number] Exam Date: 08/02/2024 11:48 Report Date: 08/04/2024 10:22 At the request of: ZACHERY STEELE Procedure: XR chest 2V EXAMINATION: XR chest 2V HISTORY: Preop exam COMPARISON: No relevant comparison available. TECHNIQUE: PA and lateral FINDINGS: LUNGS: No significant pulmonary parenchymal abnormalities. VASCULATURE: No increased pulmonary vasculature. PLEURA: No pneumothorax, effusion, or pleural thickening. CARDIAC: No cardiomegaly or cardiac silhouette abnormality. MEDIASTINUM: No visible mass or adenopathy. BONES: No fracture or visible bone lesion. OTHER: Negative. XR/XR chest 2V IMPRESSION: No acute cardiopulmonary process Electronically authenticated by: JOSE ALEJANDRO SAUCEDO Date: 08/04/2024 10:22 Dictated By: Jose Alejandro Saucedo M.D. Signed By: 08/04/24 1024 DD/ 1022 TD/TT: Electric Clock Mechanic:ECG 12 lead Reviewed date:08/07/2024 11:49:21 AM Interpretation: Performing Lab: Notes/Report: Source Facility: [place] [address] Electrocardiograph Report Signed Patient: DOUG GOMEZ MR#: [id number] : 1990 Acct:[id number] Age/Sex: 34 / F ADM Date: 08/02/24 Loc: [facility] Attending Dr: Zachery Steele M.D. Ordering Physician: Zachery Steele M.D. 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 Signed By: 08/05/24 0626 DD/ 1139 TD/TT: Electric Clock Mechanic:CBC AUTO DIFF Reviewed date:08/02/2024 02:26:13 PM Interpretation: Performing Lab: Notes/Report: [facility] ,White Blood Count6.74.0-11.0 10 3/uLRed Blood Count5.054.20-5.40 10 6/uL Dwlgwjsdgf78.512.0-16.0 g/dWLsmtjpczgm69.236.0-48.0 %Mean Corpuscular Lfucta44.6 81.0-99.0 fLMean Corpuscular Jglwvedxgy94.726.7-34.0 pgMean Corpuscular HGB Conc 32.829.9-35.2 g/dLRed Cell Distribution Width14.111.0-15.0 %Platelet Kifsl635 150-450 10 3/uLMean Platelet Agdhzv44.89.5-13.5 fLNeutrophils Percent Auto56.6 43.0-75.0 %Lymphocytes Percent Auto33.320.5-60.0 %Monocytes Percent Auto8.51.7- 12.0 %Eosinophils Percent Auto0.90.9-7.0 %Basophils Percent Auto0.60.2-2.0 % Immature Granulocytes Pct Auto0.10.0-0.5 %Neutrophils Absolute Auto3.81.4-6.5 10 3/uLLymphocytes Absolute Auto2.21.2-3.8 10 3/uLMonocytes Absolute Auto0.60.3-0.8 10 3/uLEosinophils Absolute Auto0.10.0-0.7 10 3/uLBasophils Absolute Auto0.00.0- 0.1 10 3/uLImmature Granulocytes Abs Auto0.010.00-0.03 10 3/uLPerforming Lab:see noteML - [facility] LBVITAMIN D 25 [place] Reviewed date:06/20/2024 08:36:56 PM Interpretation: Performing Lab: Notes/Report: [facility] ,Vitamin D27.2 <20 ng/mL Vit D deficient 20-<30 ng/mL Vit D insufficient 30-100 ng/mL Vit D sufficient >100 ng/mL Potential Toxicity Performing Lab:see noteML - [facility] LBTSH Reviewed date:06/20/2024 08:36:56 PM Interpretation: Performing Lab: Notes/Report: [facility] ,Thyroid Stimulating Hormone3.4310.358-3.740 uIU/mLPerforming Lab:see note - [facility] LBT4 Reviewed date:06/20/2024 08:36:56 PM Interpretation: Performing Lab: Notes/Report: [facility] ,T4 Thyroxine7.904.80-13.90 ug/dLPerforming Lab:see note - [facility] LBPROF 14(COMP METB) Reviewed date:06/20/2024 08:36:56 PM Interpretation: Performing Lab: Notes/Report: [facility] ,Fdffsh811402-002 mmol/LPotassium3.93.5-5.1 mmol/LTdkgxqzg97342-233 mmol/LCarbon Btlbivv11.321.0-32.0 mmol/LAnion Gap13.1Fiefkcv8422-236 mg/dLBlood Urea Nitrogen 14.07.0-18.0 mg/dLCreatinine0.880.55-1.02 mg/dLEstimated GFR ( Deidre>60 >=60 mL/min/1.73m 2Estimated GFR (Non- Misty>60>=60 mL/min/1.73m 2BUN Creatinine Ratio15.8Dirjvri8.08.5-10.1 mg/dLBilirubin Total0.30.2-1.0 mg/dL Aspartate Amino Usfdozmbiah9217-22 U/LAlanine Urncypwlujutsuul8691-58 U/L Alkaline Chfwebblebw5309-194 U/LTotal Protein7.26.4-8.2 g/dLAlbumin Level4.03.4- 5.0 g/dLGlobulin3.2Albumin Globulin Ratio1.3Performing Lab:see noteML - [facility] LBLIPID PROFILE Reviewed date:06/20/2024 08:36:56 PM Interpretation: Performing Lab: Notes/Report: [facility] ,Bzgedjtdwmqeh20<=150 mg/sPPwgglvvaobd756<=200 mg/dLHDL Kxaiwfjqgcp5263-99 mg/dL > or =60 mg/dl - LOW CARDIOVASCULAR RISK <40 mg/dl - HIGH CARDIOVASCULAR RISK LDL Cholesterol Eedkztdqme45.0 <100 mg/dl OPTIMAL 100-129 mg/dl NEAR OR ABOVE OPTIMAL 130-159 mg/dl BORDERLINE HIGH 160-189 mg/dl HIGH >190 mg/dl VERY HIGH VLDL CHOLESTEROL7.6Chol HDL Ratio2.6 3.3 - 4.4 LOW RISK 4.4 - 7.1 AVERAGE RISK 7.1 - 11.0 MODERATE RISK >11.0 HIGH RISK Performing Lab:see noteML - [facility] LBIRON Reviewed date:06/20/2024 08:36:56 PM Interpretation: Performing Lab: Notes/Report: [facility] ,Iron50.050.0-170.0 ug/dLPerforming Lab:see note - [facility] LB GLYCOHEMOGLOBIN A1C Reviewed date:06/20/2024 08:36:56 PM Interpretation: Performing Lab: Notes/Report: [facility] ,Glycohemoglobin A1C5.74.5-6.2 % ADA RECOMMENDED LIMIT 4.0 - 6.0 ADA THERAPEUTIC TARGET < 7.0 ACTION SUGGESTED > 7.0 Estimated Average Cywwdlb902Qwrsacbyfg Lab:see noteML - [facility] LB FREE T3 Reviewed date:06/20/2024 08:36:56 PM Interpretation: Performing Lab: Notes/Report: [facility] ,Free T32.992.18-3.98 pg/mLPerforming Lab:see note - [facility] LB CBC AUTO DIFF Reviewed date:06/20/2024 08:36:56 PM Interpretation: Performing Lab: Notes/Report: [facility] ,White Blood Count6.14.0-11.0 10 3/uLRed Blood Count4.484.20-5.40 10 6/uL Dctaladbus04.212.0-16.0 g/kMVdmpodhepk23.936.0-48.0 %Mean Corpuscular Dgqyap22.4 81.0-99.0 fLMean Corpuscular Vukevmudhb51.226.7-34.0 pgMean Corpuscular HGB Conc 33.129.9-35.2 g/dLRed Cell Distribution Width13.011.0-15.0 %Platelet Owohv704 150-450 10 3/uLMean Platelet Lnlgsr93.49.5-13.5 fLNeutrophils Percent Auto60.3 43.0-75.0 %Lymphocytes Percent Auto29.120.5-60.0 %Monocytes Percent Auto9.21.7- 12.0 %Eosinophils Percent Auto0.50.9-7.0 %Basophils Percent Auto0.70.2-2.0 % Immature Granulocytes Pct Auto0.20.0-0.5 %Neutrophils Absolute Auto3.71.4-6.5 10 3/uLLymphocytes Absolute Auto1.81.2-3.8 10 3/uLMonocytes Absolute Auto0.60.3-0.8 10 3/uLEosinophils Absolute Auto0.00.0-0.7 10 3/uLBasophils Absolute Auto0.00.0- 0.1 10 3/uLImmature Granulocytes Abs Auto0.010.00-0.03 10 3/uLPerforming Lab:see noteML - [facility] LBCT lumbar spine w con Reviewed date:12/06/2024 04:29:57 PM Interpretation: Performing Lab: Notes/Report: Source Facility: [facility]-[address] [place] [address] [place] [address] CT Scan Report Signed Patient: DOUG GOMEZ MR#: [id number] : 1990 Acct:[id number] Age/Sex: 34 / F ADM Date: 12/06/24 Loc: ER Attending Dr: Ordering Physician: Mirian Schmidt Date of Service: 12/06/24 Procedure(s): CT lumbar spine w con Accession Number(s): [id number] cc: Feng Greenberg M.D. [address] [id number] Patient Name: DOUG GOMEZ MRN: [id number] date: 1990 Sex: F Assigned Patient Location: ER Current Patient Location: ER Accession/Order Number: [id number] Exam Date: 12/06/2024 14:47 Report Date: 12/06/2024 14:57 At the request of: MIRIAN SCHMIDT MD Procedure: CT lumbar spine w con Unenhanced head CT TECHNIQUE: Contiguous axial imaging of the head. The CT exam was performed using one or more the following dose reduction techniques: Automated exposure control, adjustment of the MA and/or Kv according to patient size, or use of the iterative reconstruction technique. COMPARISON: None HISTORY: Recent spine surgery. Clear fluid and a drain one day ago. Headache. VENTRICLES: Within normal limits ATROPHY: None BRAIN PARENCHYMA: Adequate finn-white matter differentiation identified. HEMORRHAGE: None HERNIATION: No mass effect or herniation INFARCTION: No recent vascular distribution infarction is seen. EXTRA-AXIAL FLUID COLLECTIONS None MIDBRAIN: Unremarkable TED: Unremarkable MEDULLA: Unremarkable SINUSES: Unremarkable ORBITS: Grossly unremarkable MASTOIDS: Unremarkable BONY STRUCTURES Intact ADDITIONAL FINDINGS: CT/CT lumbar spine w con IMPRESSION: No acute findings. CT LUMBAR SPINE WITH CONTRAST TECHNIQUE: Axial acquisition of the lumbar spine obtained with the sagittal and coronal reconstructed imaging.The CT exam was performed using one or more the following dose reduction techniques: Automated exposure control, adjustment of the MA and/or Kv according to patient size, or use of the iterative reconstruction technique. 100 cc of Omnipaque 300 HISTORY: As above COMPARISON: 11/11/2024 FINDINGS: The last fully segmented vertebral pair is operationally defined as L5/S1. POST SURGERY CHANGES: L5-S1 posterior fusion. No hardware complication. Posterior decompression. 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 Similar size compared to prior examination. Maximal measurement 6.4 cm.. BONY ALIGNMENT: Adequate bony alignment identified. SPINAL CANAL:Patent bony central canal LUMBAR FRACTURE: None BONY LESIONS: L3-4 vertebral body hemangioma redemonstrated. KIDNEYS: No hydronephrosis is identified. AORTA: No aortic aneurysm is seen. 3 cm left ovarian cyst. Lower thoracic level: Unremarkable L1-2:Unremarkable L2-3: Unremarkable L3-4:Unremarkable L4-5:Unremarkable L5-S1:Unremarkable Assessment of disc herniation limited with CT examination. No obvious disc herniation seen with CT exam. 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 No acute lumbar spine findings. 3 cm left ovarian cyst Impression dictated by: Nolberto Ceja M.D. 12/06/2024 2:57 PM Dictation Location: [place] [address] Electronically authenticated by: [id number] Y Date: 12/06/2024 14:57 Dictated By: Nolberto Ceja D.O. Signed By: 12/06/24 1459 DD/ 56 TD/TT: Electric Clock Mechanic:RADHA Qualitative* Reviewed date:12/06/2024 04:29:56 PM Interpretation: Performing Lab: Notes/Report: [facility] ,HCG QualitativeNEGATIVENEGATIVEPerforming Lab:see note - [facility] LBPROF 14(COMP METB) Reviewed date:12/06/2024 04:29:56 PM Interpretation: Performing Lab: Notes/Report: [facility] ,Kzqmbh513949-677 mmol/LPotassium3.63.5-5.1 mmol/WStiqxblo41776-829 mmol/LCarbon Mawbwcn23.121.0-32.0 mmol/LAnion Gap14.4Vxvrqdd14348-988 mg/dLBlood Urea Gojovqup42.07.0-18.0 mg/dLCreatinine0.670.55-1.02 mg/dLEstimated GFR ( Deidre>60>=60 mL/min/1.73m 2Estimated GFR (Non- Misty>60>=60 mL/min/1.73m 2BUN Creatinine Ratio17.3Kupswsf9.38.5-10.1 mg/dLBilirubin Total0.50.2-1.0 mg/dL Aspartate Amino Gynmqqsthom8799-32 U/LAlanine Hxaobdwcitwmotfd7431-22 U/L Alkaline Ajxswonjqyb7153-683 U/LTotal Protein7.56.4-8.2 g/dLAlbumin Level3.23.4- 5.0 g/dLGlobulin4.3Albumin Globulin Ratio0.7Performing Lab:see noteML - [facility] LBCBC AUTO DIFF Reviewed date:12/06/2024 04:29:56 PM Interpretation: Performing Lab: Notes/Report: [facility] ,White Blood Count8.14.0-11.0 10 3/uLRed Blood Count4.474.20-5.40 10 6/uL Hzkcxecoik46.012.0-16.0 g/sOKltguwyrte66.336.0-48.0 %Mean Corpuscular Dltjuz66.5 81.0-99.0 fLMean Corpuscular Yfhnvnkngz35.626.7-34.0 pgMean Corpuscular HGB Conc 33.029.9-35.2 g/dLRed Cell Distribution Width15.811.0-15.0 %Platelet Uxtxh940 150-450 10 3/uLMean Platelet Urnxzw05.89.5-13.5 fLNeutrophils Percent Auto74.8 43.0-75.0 %Lymphocytes Percent Auto14.320.5-60.0 %Monocytes Percent Auto8.51.7- 12.0 %Eosinophils Percent Auto1.80.9-7.0 %Basophils Percent Auto0.40.2-2.0 % Immature Granulocytes Pct Auto0.20.0-0.5 %Neutrophils Absolute Auto6.11.4-6.5 10 3/uLLymphocytes Absolute Auto1.21.2-3.8 10 3/uLMonocytes Absolute Auto0.70.3-0.8 10 3/uLEosinophils Absolute Auto0.20.0-0.7 10 3/uLBasophils Absolute Auto0.00.0- 0.1 10 3/uLImmature Granulocytes Abs Auto0.020.00-0.03 10 3/uLPerforming Lab:see noteML - [facility] LBType and Screen Reviewed date:12/03/2024 05:32:10 PM Interpretation: Performing Lab: Notes/Report: [facility] ,Blood TypeA PositiveAntibody ScreenNEGATIVE Reason For Referral Diagnosis 1 Lumbar radiculopathy (M54.16) Referral Organization [facility] Referring Provider First Name Sacha Referring Provider Last Name Yari Referring Provider Speciality [facility] icine Referred Provider Zachery Manrique Referred Provider Specialty Orthopedic S urgery Referral Priority Routine Diagnosis 1 Lumbar radiculopathy (M54.16) Referral Organization [facility] Referring Provider First Name Sacha Referring Provider Last Name Yari [facility] Referral Priority Routine Diagnosis 1 Urinary retention (R 33.9) Referral Organization [facility] Referring Provider First Name Sacha Referring Provider Last Name Yari Referring Provider [facility] jasson Referred Provider Arnoldo Nair Referred Provider Specialty Urology Referral Priority Routine Medications Medication SIG (Take, Route, Frequency, Duration) Notes Start Date End Date Status Symbicort 160-4.5 MCG/ACT INHALE 1 PUFF BY MOUTH TWICE A DAY; Duration: 60 ActiveTriamcinolone Acetonide 0.1 %1 application to affected aread Externally BID5ActiveCyclobenzaprine HCl 10 MG1 tablet Orally Once a day; Duration: 30 days5ActiveLidocaine 5 %1 patch remove after 12 hours Externally Once a day5ActiveMetoprolol Succinate ER 50 MG1 tablet Orally Once a day; Duration: 30 days10/21/2024Not-TakingMontelukast Sodium 10 MG TAKE 1 TABLET BY MOUTH EVERY DAY FOR 30 DAYS; Duration: 30Active Social History Tobacco Use: Social History Observation Description Date Details (start date - stop date) Current Smoker 06/29/2003 - NA Tobacco Use/Smoking Question Answer Notes Patient is a current smoker When did you start smoking?06/29/2003How often do you smoke cigarettes?every day How many cigarettes a day do you smoke?6-10Additional Findings: Tobacco User Light cigarette smoker ((1-9 cigs/day)Alcohol Screen (Audit-C) Question Answer Notes Did you have a drink containing alcohol in the p ast year? No Zaoahb7XtzfmvpvitrmdtXgngyieiKhywizi use other than smoking: Question Answer Notes Are you an other tobacco user? Yes V APE AUDIT-C (Standard) Question Answer Notes Did you have a drink containing alcohol in the p ast year? No Vmnpse0JpjyclvmsscjduYnotmdek Problems Problem Type SNOMED Code ICD Code Onset Dates Problem Status W/U Status Risk Notes Problem Gastro-esophageal re flux disease with esophagitis (507896787) Gastro-esophageal reflux disease with esophagitis (K21.0) ActiveconfirmedProblemHypertension (19636637)Hypertension (I10)Activeconfirmed ProblemSpinal stenosis (18960710)Spinal stenosis (M48.00)ActiveconfirmedProblem Migraine (23890564)Migraine (G43.909)ActiveconfirmedProblemLumbar radiculopathy (062391810)Lumbar radiculopathy (M54.16)ActiveconfirmedProblemAcquired spondylolisthesis (366650167)Spondylisthesis (M43.10)ActiveconfirmedProblem Neurogenic claudication (355782291)Neurogenic claudication (M48.062)Active confirmedProblemGastroesophageal reflux disease with esophagitis (disorder) (764960571)Gastroesophageal reflux disease with esophagitis, unspecified whether hemorrhage (K21.00)Activeconfirmed Vital Signs Heart Rate 100 /min 12/06/2024 Naxzcozgudb98.6 degrees Lcdxvzpldt42/10/8120Qhxclcjp15 %12/06/2024lood pressure yefxzsqqw59 mm Hg12/14/20248106Ddqibm20.25 in12/14/2024lood pressure baafuber236 mm Hg12/14/20242419Aubjxx139.8 lbs12/14/2024BMI22.23 kg/m212/14/2024 Encounters Encounter Location Date Provider Diagnosis [facility] [address] [place] [address] 06/20/2024 Sacha Hoy [facility] [place] [address] 06/23/2024oug HoyLumbar radiculopathy M54.16[facility] [place] [address]/Doug HoyElevated lipase R74.8 [facility] [place] [address] 10/12/2024Doug [facility] [place] [address]/Doug [facility] [place] [address]/Doug HoyLumbar radiculopathy M54.16[facility] [place] [address]/10/2024 Sacha [facility] [place] [address]/Doug [facility] [place] [address]/Doug [facility] [place] [address]/Doug [facility] [place] [address]/02/2025Doug [facility] [place] [address]/03/2025Doug [facility] [place] [address] 12/06/2024Doug [facility] [place] [address]/03/2025Doug [facility] [place] [address]/04/2025Doug [facility] [place] [address]/Doug HoyLumbar radiculopathy M54.16 and Failed back [facility]96.1[facility] [address] [place] [address]/01/2025Doug [facility] [place] [address]/Doug Hoy Urinary retention R33.9[facility] [place] [address]/03/2025Doug HoySpinal stenosis M48.00[facility] [address] [place] [address]/oug Hoy Lumbar radiculopathy M54.16 ; Gastro-esophageal reflux disease with esophagitis K21.0 and Fatigue R53.83[facility] [address] [place] [address]/04/2025Doug HoyEncounter for pre-operative examination Z01.818 and Lumbar radiculopathy M54.16[facility] [address] [place] [address]/Doug HoyLumbar radiculopathy M54.16[facility] [address] [place] [address]/oug HoyLumbar radiculopathy M54.16[facility] [address] [place] [address]/Doug HoyLumbar radiculopathy M54.16 ; Hypertension I10 and Migraine G43.909 Assessments Encounter Date Diagnosis (ICD Code) Assessment Notes Treatment Notes Treatment Clinical Notes Section Notes 06/20/2024 Lumbar radiculopathy (ICD-10 - M 54.16) back pain pgoing on fro 8 months tried NSAID, injections exercises at home - not better - getting worse iwth R leg weakness progressive 06/20/2024Gastro-esophageal reflux disease with esophagitis (ICD-10 - K21.0) 12/06/2024Spinal stenosis (ICD-10 - M48.00)12/14/2024Lumbar radiculopathy (ICD- 10 - M54.16)Refrerring to Ram[facility].06/23/2024Lumbar radiculopathy (ICD-10 - M54.16)10/10/2024Elevated lipase (ICD-10 - R74.8)10/21/2024Lumbar radiculopathy (ICD-10 - M54.16)12/22/2024Lumbar radiculopathy (ICD-10 - M54.16)12/22/2024 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 Take NSAIDs for pain as needed Plan Of Treatment Pending Test Test Name Order Date CMP (COMPLETE METABOLIC PANEL) 4 HEMOGLOBIN A1C (GLYCO) 06/20/2024 IRON, TOTAL 06/20/2024 LIPID PANEL (CHOL/TRIG/HDL/LDL) 06/20/20 24 CBC WITH DIFF 06/20/2024 VITAMIN D, 25 LEVEL (TOTAL) 06/20/2024 US Liver 10/10/2024 US Pancreas 10/10/2024 US Gallbladder 10/10/2024 CT Brain w/o Contrast 10/10/2024 CBC AUTO DIFF 05/14/2025 PROF CHEM 8 (BAS METB) 05/14/2025 SED RATE WESTERGREN 04/20/2024 MRI LSPINE WO CON 06/20/2024 MRI LSPINE WO CON 08/06/2023 US ARTERY LEG MARIE 06/20/2024 THYROID PANEL (T4/TSH/FREE T3) 4 HCG Qualitative* 05/14/2025 Insurance Providers Payer Name Payer Address Payer Phone Subscriber Number Group Number Insured Name Patient Relationship to Insured Coverage Start Date Coverage End Date [employer] [place] [employer] [address] [address] [place] [address] [id number] Lesly Gomez - patient is the insured Medications Administered Medication Instructions Date of Administration Dosage Notes Kenalog-40 mgKenalog-400 mgKetorolac Zkfriqffkaen56/08/367271 mg Ketorolac Mrbfiswuonxd34/09/879409 mgKetorolac Fhkzitscefcp74/23/782603 mg Ketorolac Qrwjfnceqnxr86/24/560856 mgKetorolac Bpcjpxlyqgzm87/14/764389 mg Orphenadrine Fltwgqd39 mLOrphenadrine Rvkmnxc550 mg Orphenadrine Ugkzrny38 mgPromethazine 25mg mgTriamcinolone 40 mg/ml mgTriamcinolone 40 mg/ml480 mg Medical (General) History Medical History History ICD Code ADHD (attention deficit hyperactivity di sorder) F90.9 Asthma J45.909 Anxiety F41.9 COVID-19 U07.1 Degenerative disc disease, lumbar M51.36 Eczema L30.9 Hypertension I10 Insomnia G47.00 Lymphadenopathy R59.1 Migraine G43.909 Surgical History Surgery Date(Month/Year) Tubes Tied Biopsy LiverL5-S1 Decompression and Fusion09/16/2024Meningocele Repair - [facility]12/02/24[facility]x2 TONSILLECTOMY,UNDER 12YRSADENOIDECTOMY,UNDER 12YRSHospitalization History Reason Date(Month/Year) see nina
--- OUTSIDE RECORDS SUMMARY | 2025-05-14 04:01 | XMS_ITS | Patient Health Record ---
Author Organization [facility] Address [address] [place] [address] Care Team Providers Care Planimeter Operator Name Role Phone Sacha Greenberglas Primary Care Provider UnavailZachery Machuca Unavailable [phone] Bj Sunshine Unavailable [phone] xxRebecca Priest Unavailable [phone] Allergies No Known Allergies Results Component Value Reference Range Notes MRI THORACIC SPINE W WO CONT RAST Reviewed date:12/21/2024 01:40:24 PM Interpretation: Performing Lab: Notes/Report: MR thoracic spine with and without gadolinium [place] [address], Original Ordering Provider: Tania GILLESPIE Provider Role: Ordering MRI CERVICAL SPINE W WO CONT RAST Reviewed date:12/21/2024 01:40:24 PM Interpretation: Performing Lab: Notes/Report: MR cervical spine with and without gadolinium [place] [address] [place] [address], Original Ordering Provider: Tania GILLESPIE Provider Role: Ordering MRI BRAIN W WO CONTRAST Reviewed date:12/21/2024 01:40:24 PM Interpretation: Performing Lab: Notes/Report: MR Brain with and without gadolinium [place] [address], Original Ordering Provider: Tania GILLESPIE Provider Role: Ordering MRI LUMBAR SPINE W WO CONTRA ST Reviewed date:12/21/2024 01:40:24 PM Interpretation: Performing Lab: Notes/Report: MR lumbar spine with and without gadolinium [place] [address], Original Ordering Provider: Tania GILLESPIE Provider Role: Ordering Surgery Scheduling (Not yet reviewed by provider) Interpretation: Performing Lab: Notes/Report: Primary Insurance Company: MEDICAID [employer] Surgeon/Assist:ZACHERY BLACK/ANITA OR Onur Location:[facility] Date & Time:08/19/24 @ 7:30AMHosp arrival time day of:6:30AMSurgery End Time:9:30AM Procedure:L5-S1 DECOMPRESSION AND FUSINO , L5-S1 TLIFSpecial Equipment:SSEP, PRONE, YARITZA TABLE, SURGALIGNDiagnosis:M48.062Admission Type:outpatient Anesthesia Type/CPNB:GENERALPost-op Appointment Date:09/30/24 @ 9:50 am [facility] Latex AllergyNOLab Location:[facility] Date/Time:08/02/24 @ 11AMScheduler:MASON Raines Physician:FENG Montes Appt Date/T008/09/24 @ 10:30AMHistory & Physical Appointment Date/:08/12/24 @ 12:10PM FINDLAYEKG 12-LEAD Reviewed date:12/05/2024 07:51:20 AM Interpretation: Performing Lab: Notes/Report: [address] [place] [address], Original Ordering Provider: Tania VELÁSQUEZ Provider Role: Ordering Reason For Referral Reason APPROVED OUTPATIENT.............................................08/19/24.................. ..................ANTHEM JACOB L5-S1 DECOMPRESSION AND FUSION , L5-S1 TLIF 80675, 65[address], 95856, 27208, [address], [address] Diagnos is 1 Lumbar stenosis with neurogenic claudica tion (M48.062) Diagnos is 2 HNP (herniated nucleus pulposus), lumbar (M51.26) Diagnos is 3 Spondylosis (M47.9) Referra fahad [facility] Referri ng Provide r First Name Zachery Referri ng Provide r Last Name [facility] Referri ng Provide r Special ity Orthopedic Surgery Referre d Organiz [facility] Surgery Scheduling Referre d Address [address] [facility],[address],[place] Procedu re 1 Arthrodesis, PLIF w/ PSF including charanjit ectomy and/or discectomy, sufficient to prepare interspace (other than for decompression), single interspace and segment; lumbar (45841) Procedu re 2 BROCK FACETC/FRMT ARTHRD LUM 1 (37242) Procedu re 3 BROCK FACTC/FRMT ARTHRD LUM EA (42142) Procedu re 4 Posterior non-segmental instrumentation (37572) Procedu re 5 INSJ BIOMECHANICAL DEVICE (03624) Procedu re 6 Autograft for spine surgery only; local obtained from same incision (24810) General Notes Mason Jc 07/13/2024 04:00:39 PM >, Madisyn Silva 07/20/2024 11:01:04 AM > ANTHEM ACTIVE AND EFFECTIVE 06/29/24 PER [employer]. AUTHORIZATION REQUEST SUBMITTED WITH CLINICALS OUTPATIENT VIA [employer] DUE TO NONE OF THE PROVIDED CODES BEING ON THE MEDICAID INPATIENT LIST, PENDING AUTHORIZATION # [id number]., Madisyn Silva 07/26/2024 09:13:46 AM > PER FAX BACK FROM [employer] THEY'RE NEEDING ADDITIONAL NOTES THAT SHOW LENGTH OF TIME THAT THE MEMBER HAS ATTEMPTED NON-OPERATIVE THERAPY., Mason Jc 07/26/2024 09:28:50 AM >faxing 4 office notes that are complete and patient has 4 more sessions scheduled, Madisyn Silva 07/26/2024 09:33:28 AM > AUTHORIZATION # [id number] SHOWING APPROVED NOW PER [employer] AND VALID 08/19/24-10/17/24. SCANNED INTO CHART. PLEASE MAKE SURE THIS IS SCHEDULED OUTPATIENT AND SEND BACK TO ME SO I CAN FAX TO [facility]., Mason Jc 07/26/2024 02:38:35 PM >VERIFIED SCHEDULED OUTPATIENT, Madisyn Silva 07/26/2024 02:41:58 PM > PERFECT, THANK YOU, FAXED TO [facility]. Referra l Priorit y Routine Reason APPROVED............ .....................NOT SCHEDULED...................................ASHANTI JACOB MRI LUMBAR TAE DONE AT [facility] Diagnosis 1 Aftercare following surgery of the musculoskeletal system (Z47.89) Diagnosis 2 Spinal stenosis, lum bosacral region (M48.07) Diagnosis 3 Spondylolisthesis, l umbosacral region (M43.17) Referral Organization [facility] Referring Provider First Name Zachery Referring Provider Last Name [facility] Referring Provider Speciality Orthopedic Surgery Referred Organization [facility] yonathan Referred Address [place], [place], Procedure 1 MRI Lumbar Spine w/o Dye (98384) General Notes Mason Jc 2024 09:39:50 AM >, Madisyn Silva 10/28/2024 09:51:44 AM > WAITING ON TODAY'S OFFICE NOTE, Madisyn Silva 11/03/2024 11:21:57 AM > ANTHEM ACTIVE AND EFFECTIVE 06/29/24 PER AIM. AUTHORIZATION # [id number] APPROVED AND VALID 11/03/24-01/01/25 PER AIM. SCANNED INTO CHART AND FAXED TO [facility].Mayela Sara 11/03/2024 04:35:37 PM > order faxed Referral Priority Routine Medications Medication SIG (Take, Route, Frequency, Duration) Notes Start Date End Date Status Flexeril 10 mg 1 tab(s) orally 3 times a day pr n muscle spasms 5Active Social History Tobacco Use: Social History Observation Description Date Details (start date - stop date) Current Smoker NA - NA AUDIT-C (Standard) Question Answer Notes Did you have a drink containing alcohol in the p ast year? No Yppcsh3JbcynqolvomowfVnomcytsSpkyhyw Control (Standard) Question Answer Notes Tobacco use: Current smoker How soon after you wake up do you smoke your first cigarette?6-30 minutes Problems Problem Type SNOMED Code ICD Code Onset Dates Problem Status W/U Status Risk Notes Problem Arthralgia of the pe lvic region and thigh (431092536) Right hip pain (M25.551) ActiveconfirmedProblemHistory of arthrodesis (266278036)Arthrodesis status (Z98.1)ActiveconfirmedProblemAccidental rupture of dural mater (disorder) (1493419113)Dural tear (G96.11)ActiveconfirmedProblemAcquired spondylolisthesis (795719939)Spondylolisthesis, lumbosacral region (M43.17)ActiveconfirmedProblem Spinal stenosis of lumbar region (61182662)Spinal stenosis, lumbosacral region (M48.07)ActiveconfirmedProblemPostoperative seroma (744508132)Postprocedural seroma of a musculoskeletal structure following a musculoskeletal system procedure (M96.842)ActiveconfirmedProblemEncounter for other orthopedic aftercare (Z47.89)ActiveconfirmedProblemAcute headache (finding) (933477030) Acute intractable headache, unspecified headache type (R51.9)Activeconfirmed ProblemDegeneration of intervertebral disc of lumbosacral region with discogenic back pain and lower extremity pain (M51.372)Activeconfirmed Vital Signs Height 5 ft in 08/12/2024 Yzlkql683 lbs08/12/2024BMI23.43008/12/2024 Encounters Encounter Location Date Provider Diagnosis [facility] Office [address] [address] [place] [address] 07/01/2024 Rebecca Acosta Spondylolisthesis, lumbosacral region M43.17 ; Spinal stenosis, lumbosacral region M48.07 and Degeneration of intervertebral disc of lumbosacral region with discogenic back pain and lower extremity pain M51.372 [facility] Office [address] [place] [address] 08/12/2024 Bj Digashley Spondylolisthesis, lumbosacral region M43.17 ; Spinal stenosis, lumbosacral region M48.07 and Degeneration of intervertebral disc of lumbosacral region with discogenic back pain and lower extremity pain M51.372 [facility] [address] [place] [address] 08/19/2024 Selvon Hilaria Spinal stenosis, lumbosacral region M48.07 and Spondylolisthesis, lumbosacral region M43.17 [facility] [address] [facility] [address] [place] [address] 09/30/2024 [facility] Encounter for other orthopedic aftercare Z47.89 and Arthrodesis status Z98.1 [facility] [address] [facility] [place] [address] 10/28/2024 Bj Jong Aftercare following surgery of the musculoskeletal system Z47.89 [facility] [address] [facility] [place] [address] 12/02/2024 Selvon Hilaria Postprocedural serom a of a musculoskeletal structure following a musculoskeletal system procedure M96.842 ; Acute intractable headache, unspecified headache type R51.9 and Right hip pain M25.551 [facility] [address] [place] [address] 12/02/2024 Selvon Hilaria Dural tear G96.11 an d Postprocedural seroma of a musculoskeletal structure following a musculoskeletal system procedure M96.842 [facility] [address] [place] [address] 08/23/2024 Selvon Hilaria [facility] [place] [address]/ [facility] [place] [address]/[facility] [place] [address]/03/2025[facility] St ClairAftercare following surgery of the musculoskeletal system Z47.89 Assessments Encounter Date Diagnosis (ICD Code) Assessment Notes Treatment Notes Treatment Clinical Notes Section Notes 08/12/2024 Spondylolisthesis, lumbosacral r egion (ICD-10 - M43.17) 08/12/2024Spinal stenosis, lumbosacral region (ICD-10 - M48.07)08/19/2024Spinal stenosis, lumbosacral region (ICD-10 - M48.07)09/30/2024rthrodesis status (ICD- 10 - Z98.1)1. 6 weeks s/p L5-S1 decompression/lttbfm7509/30/2024Encounter for other orthopedic aftercare (ICD-10 - Z47.89)1. 6 weeks s/p L5-S1 decompression/rwbdou7010/28/2024ftercare following surgery of the musculoskeletal system (ICD-10 - Z47.89)1. 3-month status post L5-S1 decompression and fusion 12/02/2024Postprocedural seroma of a musculoskeletal structure following a musculoskeletal system procedure (ICD-10 - M96.842)12/02/2024ute intractable headache, unspecified headache type (ICD-10 - R51.9)12/02/2024Dural tear (ICD-10 - G96.11)12/02/2024Postprocedural seroma of a musculoskeletal structure following a musculoskeletal system procedure (ICD-10 - M96.842)12/06/2024 Aftercare following surgery of the musculoskeletal system (ICD-10 - Z47.89) 07/01/2024Spondylolisthesis, lumbosacral region (ICD-10 - M43.17)1. L5-S1 spondylolisthesis/stenosis/DDD07/01/2024Spinal stenosis, lumbosacral region (ICD-10 - M48.07)1. L5-S1 spondylolisthesis/stenosis/DDD07/01/2024Degeneration of intervertebral disc of lumbosacral region with discogenic back pain and lower extremity pain (ICD-10 - M51.372)1. L5-S1 spondylolisthesis/stenosis/DDD 12/02/2024Right hip pain (ICD-10 - M25.551)08/12/2024Degeneration of intervertebral disc of lumbosacral region with discogenic back pain and lower extremity pain (ICD-10 - M51.372)08/19/2024Spondylolisthesis, lumbosacral region (ICD-10 - M43.17)07/01/2024Other Plan established by Dr. Steele. Patient evaluated by myself and Dr. Steele today. Dr. Steele did go over patient's MRI results with her and is recommending. L5-S1 decompression/fusion, L5-S1TLIF. It was discussed with patient that fusion is necessary due to the fact that total facetecetomy's would need to be performed In order to free up the foraminal stenosis. This would lead to instability requiring a fusion. Surgical risks and benefits were discussed. Risks include, but are not limited to paralysis, infection, dural tear, nerve root injury, nonunion, etc. Patient would like to proceed with surgical intervention. I did give patient a prescription for physical therapy to start now. We will see patient back in the office at a date closer to surgery. The patient is very much in agreement with the treatment and/or diagnostic plan set forth and all questions were answered to the patient's satisfaction. Thanks once again. If we can be of further service to your patients with disorders of the spine, cervical, thoracic, or lumbar, please do not hesitate to contact Dr. Steele. Best regards, 1. L5-S1 spondylolisthesis/stenosis/DDD09/30/2024Other Today patient is having some bilateral SI joint pain, left greater than right. I am going to give her a Medrol Dosepak. She can start to wean out of her LSO brace and increase activity as tolerated. We will see her back in 6 weeks for her next postop recheck. She will follow-up sooner if her SI joint pain is not improving. The patient is very much in agreement with the treatment and/or diagnosticplan set forth and all questions were answered to the patient's satisfaction. Thanks once again. If we can be of further service to your patients with disorders of the spine, cervical, thoracic, or lumbar, please do not hesitate to contact Dr. Steele. Best regards, 1. 6 weeks s/p L5-S1 decompression/rhvmxb0710/28/2024Other Plan established by Dr. Steele. At this time, patient has multiple complaints. She describes somewhat of intermittent headaches, she did have a spinal leak during surgery. We will set her up with a MRI of the lumbar spine and see her back after the testing is completed to discuss results. The patient is very much in agreement with the treatment and/or diagnostic plan set forth and all questions were answered to the patient's satisfaction. Thanks once again. If we can be of further service to your patients with disorders of the spine, cervical, thoracic, or lumbar, please do not hesitate to contact Dr. Steele. Best regards, 1. 3-month status post L5-S1 decompression and lsqvri1112/02/2024Other Patient presents with persistent tenderness at the surgical incision site, hip pain, and severe headaches following a recent major surgery. Post-surgical fluid collection Assessment: MRI reveals a fluid collection at the surgical site, likely a combination of cerebrospinal fluid (CSF) and blood, causing bulkiness and tenderness at the incision. The collection does notappear to be communicating with other structures. The fluid accumulation is exerting pressure on the skin, raising concerns about potential incision breakdown. Plan - Performed needle aspiration of the fluid collection which revealed spinal fluid. Direct admit pt for wound exploration and possible dural repair at [facility] today. - Inform patient of risks, including potential worsening of headaches if microscopic communication exists Post-surgical pain and mobility issues Assessment: Patient reports hip pain, particularly in the right hip, and difficulty standing up straight after prolonged walking. There is also mention of leg fatigue and occasional giving out of theleg during ambulation. These symptoms are likely related to post-surgical recovery and deconditioning. Plan - Refer patient to physical therapy for strengthening and gait training - Educate patient on the importance of balancing activity with rest during recovery - Follow up to assess progress and adjust treatment plan as needed Thanks once again. If we can be of further service to your patients with disorders of the spine, cervical, thoracic, or lumbar, please do not hesitate to contact me. Best regards, Plan Of Treatment Pending Test Test Name Order Date Lumbar spine 2v ap and lat - 48702 09/30 Lumbar spine 2v flex and ext - 80644 08/2024 Surgery Scheduling 07/20/2024 DME - Lumbar Support, Surgical OTS 08/12 SFS - Lumbar Spine PT Order, Isometrics & Strenghening w/Modalities as needed, 2-3 times per week for 6 weeks 07/01/2024 MRI : Lumbosacral Spine W/O Contrast - 7 2148 10/28/2024 Future Test Test Name Order Date Chest 2 views - 42236 07/20/2024 CBC 07/20/2024 PT/PTT 07/20/2024 BMP 07/20/2024 MRSA (Bilateral Nares) PCR 07/20/2024 EKG 07/20/2024 Insurance Providers Payer Name Payer Address Payer Phone Subscriber Number Group Number Insured Name Patient Relationship to Insured Coverage Start Date Coverage End Date Medicaid [place] [address] [place] [address] [id number] Gini WHITING - patient is the insured Medical (General) History Medical History History ICD Code Asthma BronchitisAnxietySurgical History Surgery Date(Month/Year) Lumbar wound dura tear, seroma evacuatio n 12/02/2024 L5-S1 laminectomy, PSF 08/19/2024 Two C-sections
[2025-05-14 06:18] VITALS: BP 133/79; PULSE 84; O2SAT 100
== END 2025-05-14 06:45 | disposition home or self-care (01) ==
PROVIDERS: Emergency Provider Emergency Medicine; PCP Family Medicine
DX: K59.00 Constipation, unspecified (principal); Z98.890 Other specified postprocedural states; F17.290 Nicotine dependence, other tobacco product, uncomplicated; K66.8 Other specified disorders of peritoneum
CPT/HCPCS: 36415; 74177; 80048; 81001; 84703; 85025; 99284; J2270; J2405; Q9967

== ENCOUNTER 2025-05-16 08:25 | Outpatient (OUT) | payer MEDICAID, SELFPAY ==
--- NOTE | 2025-05-16 08:31 | US_ITS ---
[address] [address] Patient Name: JARRELL WHITING MRN: [id number] date: 1990 Sex: F Assigned Patient Location: US Current Patient Location: US Accession/Order Number: [id number] Exam Date: 05/16/2025 08:32 Report Date: 05/16/2025 09:39 At the request of: FENG DURAN MD Procedure: US abdomen limited LIMITED ABDOMINAL ULTRASOUND: CLINICAL HISTORY: Follow-up abdominal Cyst COMPARISON: CT 05/14/2025 and ultrasound 10/12/2024 Real-time ultrasound evaluation of the upper abdomen was performed. Inferior to the stomach, there is a simple appearing cyst measuring 2.7 x 1.9 x 2.6 cm in size. This correlates with the previous imaging. There is no significant interval change in size. US/US abdomen limited IMPRESSION: STABLE ANTERIOR ABDOMINAL CYST. Impression dictated by: Michaela Correia M.D. 05/16/2025 9:39 AM Dictation Location: [place] [address] Electronically authenticated by: [id number] Y Date: 05/16/2025 09:39
--- NOTE | 2025-05-16 08:40 | US_ITS ---
The [address] [address] Patient Name: JARRELL WHITING MRN: [id number] date: 1990 Sex: F Assigned Patient Location: US Current Patient Location: US Accession/Order Number: [id number] Exam Date: 05/16/2025 08:45 Report Date: 05/16/2025 09:59 At the request of: FENG DURAN MD Procedure: US renal bladder BILATERAL RENAL AND BLADDER ULTRASOUND CLINICAL HISTORY: Neurogenic bladder COMPARISON: CT 05/14/2025 Estimation of renal size is approximately 11.5 cm on the right and 10.9 cm on the left. No shadowing calculi or hydronephrosis are identified. No renal mass lesions were imaged. There is no perinephric fluid. The urinary bladder is partially distended with a volume of 117 mL . No contour or intraluminal abnormalities are seen. Bilateral ureteral jets are visualized. The post void bladder residual is 5 mL. US/US renal bladder IMPRESSION: NO OBSTRUCTIVE UROPATHY. Impression dictated by: Michaela Correia M.D. 05/16/2025 9:59 AM Dictation Location: [place] [address] Electronically authenticated by: [id number] Y Date: 05/16/2025 09:59
== END 2025-05-16 08:26 | disposition home or self-care (01) ==
LOC: US 08:25
PROVIDERS: PCP Family Medicine; Visit Provider Family Medicine
DX: M48.062 Spinal stenosis, lumbar region with neurogenic claudication (principal); K66.8 Other specified disorders of peritoneum; R19.00 Intra-abdominal and pelvic swelling, mass and lump, unspecified site
CPT/HCPCS: 76705; 76770

== ENCOUNTER 2025-05-30 18:30 | Emergency (ER) | payer MEDICAID, SELFPAY ==
--- OUTSIDE RECORDS SUMMARY | 2025-05-23 11:00 | XMS_ITS | Encounter Summary ---
Author Organization [facility] Address [address] [place] [address] Care Team Providers Care Counter Intelligence Agent Name Role Phone Pj Fuentes MD Unavailable [phone] Heather Lorenz Unavailable [phone] Reason for Visit * ReasonCommentsPost Op Check Encounter Details DateTypeDepartmentCare Team (Latest Contact Info)Nomhcabmhco74/25/2025 11:00 AM ESTOffice Visit [facility] [address] [place] [address] Pj Fuentes MD [address] [place] [address] Failed back surgical syndrome (Primary Dx) Social History Tobacco UseTypesPacks/DayYears UsedDateSmoking Tobacco: Every DayCigarettes Smokeless Tobacco: Never Comments:vapes Alcohol UseStandard Drinks/WeekCommentsNot Currently0 (1 standard drink = 0.6 oz pure alcohol)[facility] UtilitiesAnswerDate RecordedIn the past 12 months has the [employer], gas, oil, or water [employer] threatened to shut off services in your [...] RecordedIn the past 12 months has the [employer], gas, oil, or water [employer] threatened to shut off services in your home?No05/10/2025Substance UseTypesUse/WeekCommentsYesMarijuana/THCdaily CommentsNoSex and Gender InformationValueDate RecordedSex Assigned at BirthNot on fileLegal BmjTtqzcf21/02/2025 9:50 AM EDTGender IdentityNot on fileSexual OrientationNot on filedocumented as of this encounter Progress Notes * Pj Fuentes MD - 05/21/2025 9:02 AM EST DX: [id number] 1. Exploration L5-S1 fusion 2. Removal of posterior nonsegmental instrumentation. 3. Posterior nonsegmental spinal instrumentation, L5-S1, with Globus Creo titanium screw and dennis system. 4. Posterolateral fusion, L5-S1. 5. Allograft and autograft through same incision LV: FSD Ms Gomez returns today with her . Normal bowel habits, denies fever chills. Full body rash and her bladder issues aren't resolved yet. PE: incision C/D/I just some crusting at the edges, neuro baseline INV: no new but we reviewed POD#2 xrays IMP: 35yo female s/p revision L5-S1 fusion doing ok first postop check. PLAN: Walk a little farther today than yesterday. Try to get back to her normal routine of life. She will return to clinic 8-10 weeks with standing ap/lat lumbar spine xrays. documented in this encounter Plan of Treatment DateTypeDepartmentCare Team (Latest Contact Info)Uxwbvnmxrsk16/22/2026 11:15 AM ESTOffice Visit [facility] [address] [place] [address] Pj Fuentes MD [address] [place] [address] documented as of this encounter Visit Diagnoses Diagnosis Failed back surgical syndrome- Primary Other unspecified back disorder documented in this encounter Care Teams Team MemberRelationshipSpecialtyStart DateEnd Date Pj Fuentes MD [address] [place] [address] PhysicianOrthopaedic Surgery01/28/25 Heather Lorenz, [employer]ERSON[employer] QUAL[employer] ASSURANCE AUDITOR [address] [place] [address] BAIAjdkptvktuiglu53/6/25documented as of this encounter
[2025-05-30 18:36] VITALS: BP 147/92; PULSE 110; TEMP 37; O2SAT 100; BMI 23.4
--- NOTE | 2025-05-30 18:47 | CT_ITS ---
[place] [id number] Patient Name: JARRELL WHITING MRN: [id number] date: 1990 Sex: F Assigned Patient Location: ER Current Patient Location: .[facility] Accession/Order Number: [id number] Exam Date: 05/30/2025 19:08 Report Date: 05/30/2025 20:00 At the request of: KIMI NASCIMENTO Procedure: CT cervical spine wo con CT CERVICAL SPINE WITHOUT CONTRAST WITH 3D RECONSTRUCTIONS: CLINICAL HISTORY: pain, fall COMPARISON: 12/02/2024 TECHNIQUE: Spiral axial unenhanced images were obtained through the cervical spine. Sagittal, coronal and 3D volume-rendered reconstructions were also reviewed. This CT exam was performed using one or more following dose reduction techniques: Automated exposure control, adjustment of the mA and/or kV according to patient size, or use of iterative reconstruction technique. FINDINGS: No fracture or malalignment. Vertebral heights maintained. No significant degenerative change by CT. Prevertebral soft tissues unremarkable. CT/CT cervical spine wo con IMPRESSION: NO CERVICAL SPINE FRACTURE Impression dictated by: Santhosh Peguero M.D. 05/30/2025 8:00 PM Dictation Location: [place] [address] Electronically authenticated by: [id number] Y Date: 05/30/2025 20:00
--- NOTE | 2025-05-30 18:47 | CT_ITS ---
The [address] [address] Patient Name: JARRELL WHITING MRN: [id number] date: 1990 Sex: F Assigned Patient Location: ER Current Patient Location: [facility] Accession/Order Number: [id number] Exam Date: 05/30/2025 19:08 Report Date: 05/30/2025 20:11 At the request of: KIMI NASCIMENTO Procedure: CT lumbar spine wo con CT LUMBAR SPINE WITHOUT CONTRAST WITH 3D RECONSTRUCTIONS: CLINICAL HISTORY: pain, fall COMPARISON: 12/06/2024 TECHNIQUE: Spiral axial unenhanced images were obtained through the lumbar spine. Sagittal, coronal and 3D volume-rendered reconstructions were also reviewed. This CT exam was performed using one or more following dose reduction techniques: Automated exposure control, adjustment of the mA and/or kV according to patient size, or use of iterative reconstruction technique. FINDINGS: No evidence acute fracture malalignment. Postsurgical changes L5-S1 noted. Revision right L5 pedicle screw noted since prior examination which is slightly lateralized extending through the lateral cortex of L5.. Minimal lucency involving the anterior S1 vertebral bodies near the screw tips likely related to revision of the screw placement.. Evaluation canal and foramina at L5-S1 is degraded due to the beam hardening artifact. Suspected bone donor sites posterior to the iliac wings bilaterally and involving left aspect of the sacrum. There are morcellized bone fragments along the surgical hardware. Suspect resolving seroma with a posterior lumbar soft tissues. Otherwise no significant degenerative changes of the lumbar spine. CT/CT lumbar spine wo con IMPRESSION: INTERVAL REVISION OF THE POSTSURGICAL CHANGES L5-S1. NO SIGNIFICANT DEGENERATIVE CHANGES IDENTIFIED. NEGATIVE FOR FRACTURE MALALIGNMENT. Impression dictated by: Santhosh Peguero M.D. 05/30/2025 8:11 PM Dictation Location: [place] [address] Electronically authenticated by: [id number] Y Date: 05/30/2025 20:11
--- NOTE | 2025-05-30 18:48 | ED.FALL1 ---
HPI HPI - Fall General Chief Complaint: Fall Stated Complaint: FALL Time Seen by Provider: 05/30/25 18:44 Source: patient Mode of arrival: Wheelchair History of Present Illness HPI Narrative: 35 year old female presents to the ED for right mid low back pain and neck pain s/p trip and fall 05/26/25. She tripped over a blanket. She landed with her left leg behind her. Denies hitting her head and LOC. She ambulates with a walker s/p her third lumber spine surgery on 05/10/25. States she has had urinary issues since the last surgery. Denies weakness, saddle anesthesia. Denies change in bowel and/or bladder control since the fall. She is accompanied by family. She used marijuana earlier today for the pain. She declined medication for her discomfort here. Related Data Home Medications ?Medication ?Instructions ?Recorded ?Confirmed albuterol sulfate 90 mcg/actuation 2 puff inhalation Q4H PRN 04/22/23 05/30/25 aerosol inhaler shortness of breath or wheezing budesonide-formoterol HFA 160 1 puff inhalation Q12H 04/22/23 05/30/25 mcg-4.5 mcg/actuation aerosol inhaler (Symbicort) prednisone 10 mg tablet mg 05/30/25 Previous Rx's ?Medication ?Instructions ?Recorded methocarbamol 750 mg tablet 750 mg PO Q6H PRN back pain #20 04/22/23 tabs ondansetron 4 mg disintegrating 4 mg PO Q6H PRN nausea and 07/06/23 tablet vomiting #12 tabs Allergies Allergy/AdvReac Type Severity Reaction Status Date / Time tomato Allergy Severe Rash Verified 05/30/25 18:35 oxycodone (From Percocet) AdvReac Severe Nausea Verified 05/30/25 18:35 hydrocodone (From Vicodin) AdvReac Nausea Verified 05/30/25 18:35 Opioid HPI Opioid Management Most Recent Pain and Opioid Data: Last Pain Scale 8 Today, 19:22 Last Pain Intensity 5 08/21/24, 07:54 Last ED Pain Assessment Today, 19:22 Last ORT Total Score 3 12/02/24, 17:14 Last ORT Risk Category Low Risk 12/02/24, 17:14 Review of Systems ROS Constitutional Denies: fever or chills Ears, nose, mouth, and throat Reports: neck pain Cardiovascular Denies: chest pain Respiratory Denies: shortness of breath Gastrointestinal Denies: abdominal pain, nausea, vomiting or diarrhea Genitourinary Denies: painful urination or urinary incontinence Musculoskeletal Reports: back pain and neck pain; Denies: extremity pain or extremity swelling Neurological Denies: headache, numbness in extremities, weakness in extremities or dizziness PFSH [facility] Medical History (Updated 05/30/25 @ 20:21 by Lee Ann aCmacho) Liver mass ?R16.0 - Hepatomegaly, not elsewhere classified (ICD-10) Leg fracture ?S82.90XA - Unspecified fracture of unspecified lower leg, initial encounter for closed fracture (ICD-10) H/O reduction of closed fracture ?Z87.81 - Personal history of (healed) traumatic fracture (ICD-10) Anemia ?D64.9 - Anemia, unspecified (ICD-10) PTSD (post-traumatic stress disorder) ?F43.10 - Post-traumatic stress disorder, unspecified (ICD-10) Panic attacks ?F41.0 - Panic disorder [episodic paroxysmal anxiety] (ICD-10) Electronic cigarette use ?Z78.9 - Other specified health status (ICD-10) Dizziness ?R42 - Dizziness and giddiness (ICD-10) Migraine ?G43.909 - Migraine, unspecified, not intractable, without status migrainosus (ICD-10) Kidney stones ?N20.0 - Calculus of kidney (ICD-10) Colitis ?K52.9 - Noninfective gastroenteritis and colitis, unspecified (ICD-10) Anxiety ?F41.9 - Anxiety disorder, unspecified (ICD-10) Bronchitis ?J40 - Bronchitis, not specified as acute or chronic (ICD-10) Asthma ?J45.909 - Unspecified asthma, uncomplicated (ICD-10) Lumbar stenosis ?M48.061 - Spinal stenosis, lumbar region without neurogenic claudication (ICD-10) Low back pain ?M54.50 - Low back pain, unspecified (ICD-10) Surgical History (Updated 12/02/24 @ 10:55 by Mara Mckay RN) Status post lumbar spine surgery for decompression of spinal cord ?Z98.890 - Other specified postprocedural states (ICD-10) Hx of tubal ligation ?Z98.51 - Tubal ligation status (ICD-10) History of liver biopsy ?Z98.890 - Other specified postprocedural states (ICD-10) History of tonsillectomy and adenoidectomy ?Z90.89 - Acquired absence of other organs (ICD-10) History of section ?Z98.891 - History of uterine scar from previous surgery (ICD-10) History of section ?Z98.891 - History of uterine scar from previous surgery (ICD-10) Family History Other Family history not known due to adoption Social History Within the past year, how often did you have a drink containing alcohol: never Score interpretation: A score less than 3 is consistent with normal alcohol consumption. Smoking status: Heavy tobacco smoker Do you use any of these nicotine containing products: vaping products Non-prescribed substance use: cannabis (any form) Highest level of school completed/degree received: some college, no degree Little interest or pleasure in doing things: not at all Feeling down, depressed, or hopeless: not at all Exam Constitutional Vital Signs, click to edit/add: Last Vital Signs Temp 98.5 F 05/30/25 19:18 Pulse 90 05/30/25 19:18 Resp 18 05/30/25 19:18 BP 120/90 05/30/25 19:18 Pulse Ox 100 05/30/25 19:18 O2 Del Method Room Air 05/30/25 18:36 Common normals: no apparent distress and oriented x3 General appearance: cooperative HENMT Common normals: normocephalic, external ears normal and moist oral mucous membranes Eye Common normals: PERRL, EOMs intact bilaterally, conjunctivae normal and no scleral icterus Neck & C-Spine Common normals: supple General: trachea midline Cervical spine: paracervical muscle tenderness right; no cervical spine tenderness Chest Chest: symmetrical chest wall rise Respiratory Common normals: normal respiratory effort Effort & inspection: able to speak in complete sentences and symmetric chest movement Cardio Common normals: regular rate Peripheral pulses: posterior tibial pulses present and dorsalis pedis pulses present Back & Pelvis Thoracic spine/upper back: normal to inspection; no thoracic spinal tenderness and no paraspinal muscle tenderness Lumbar spine/lower back: lumbar spinal tenderness and paraspinal muscle tenderness Other: Surgical scar noted to lower back. Appears to be healing well. No drainage or erythema. Wound edges well-approximated. Neuro Kyle Coma Scale: document GCS findings Common normals: oriented x3, moves all extremities and no focal motor deficits Sensorium/orientation: awake and alert Speech: speech normal Course Vital Signs Vital signs: Vital Signs Temperature 98.6 F 05/30/25 18:36 Pulse Rate 110 H 05/30/25 18:36 Respiratory Rate 18 05/30/25 18:36 Blood Pressure 147/92 H 05/30/25 18:36 Pulse Oximetry 100 05/30/25 18:36 Oxygen Delivery Method Room Air 05/30/25 18:36 Temperature 98.5 F 05/30/25 19:18 Pulse Rate 90 05/30/25 19:18 Respiratory Rate 18 05/30/25 19:18 Blood Pressure 120/90 05/30/25 19:18 Pulse Oximetry 100 05/30/25 19:18 Oxygen Delivery Method Room Air 05/30/25 18:36 MDM - Fall MDM Narrative Medical decision making narrative: Imaging was negative for acute findings; see the reports for additional findings. Findings were discussed with the patient and her family member. She initially declined medication for her discomfort here. She later requested an injection for the ride home. She was medicated with morphine IM and Zofran ODT. Follow up with the biomedical equipment specialist for a recheck, further evaluation and treatment. Return to the ED for worsening symptoms. Medical Records Attestation: I reviewed the patient's medical records. Imaging Data CT: Attestation: I have reviewed the pertinent imaging results. Radiologist's impression: ITS Impressions Cervical Spine CT 05/30/25 18:47 IMPRESSION: NO CERVICAL SPINE FRACTURE Impression dictated by: Santhosh Peguero M.D. 05/30/2025 8:00 PM Dictation Location: [facility] Electronically authenticated by: [id number] Y Date: 05/30/2025 20:[address] 05/30/25 18:47 IMPRESSION: INTERVAL REVISION OF THE POSTSURGICAL CHANGES L5-S1. NO SIGNIFICANT DEGENERATIVE CHANGES IDENTIFIED. NEGATIVE FOR FRACTURE MALALIGNMENT. Impression dictated by: Santhosh Peguero M.D. 05/30/2025 8:11 PM [facility]ictation [facility] Electronically authenticated by: [id number] Y Date: 05/30/2025 20:11 Discharge Plan Discharge Chief Complaint: Fall Clinical Impression: Fall, Lumbar back pain, Cervical strain Patient Disposition: Home, Self-Care Time of Disposition Decision: 20:20 Condition: Good Mode of Transportation: Private Vehicle Prescriptions / Home Meds: No Action ondansetron 4 mg tablet,disintegrating 4 mg PO Q6H PRN (Reason: nausea and vomiting) Qty: 12 0RF albuterol sulfate 90 mcg/actuation HFA aerosol inhaler 2 puff INHALATION Q4H PRN (Reason: shortness of breath or wheezing) budesonide-formoterol [Symbicort] 160-4.5 mcg/actuation HFA aerosol inhaler 1 puff INHALATION Q12H methocarbamol 750 mg tablet 750 mg PO Q6H PRN (Reason: back pain) Qty: 20 0RF prednisone 10 mg tablet Print Language: Tristanian Instructions: Cervical Strain (ED), Muscle Strain (ED), Acute Low Back Pain (ED) Additional Instructions: Return to the ED for worsening symptoms. Follow up with your biomedical equipment specialist. Referrals: Stiven Greenberg MD [Primary Care Provider, Family Practice] - 1 week
[2025-05-30 19:18] VITALS: BP 120/90; PULSE 90; TEMP 36.9; O2SAT 100
--- OUTSIDE RECORDS SUMMARY | 2025-05-30 19:38 | XMS_ITS | CCD ---
Author Organization [facility] Care Team Providers Care Regional Geodetic Advisor Name Role Phone RENEE ., DR TONEY Attending Unavailable HOY ., DR TONEY Admitting Unavailable HOY ., DR TONEY Primary Care Unavailable HOY ., DR TONEY Consulting Unavailable HOY ., DR TONEY Admitting Unavailable HOY ., DR TONEY Primary Care Unavailable HOY ., DR TONEY Consulting Unavailable HOY ., DR TONEY Attending Unavailable Stiven Duran MD Primary Care Provider [phone] RENEE STIVEN M Primary Care Unavailable YUNIOR [...] Unavailable Stiven Duran MD Primary Care Provider [phone] RENEA GONZALEZ Attending Unavailable HOY, STIVEN M [...] Primary Care Provider UnavailEloisa Romo MD Unavailable [phone] PROVIDER, UNKNOWN Admitting Unavailable ELOISA BEASLEY Attending [...] of OnsetReaction(s) Facility (1 source)Acetaminophen / HYDROcodoneDrug Jqzspgu60-05-6637[facility] Rep[facility] (20 sources)Acetaminophen / HYDROcodone; Translations: [HYDROCODONE-ACETAMINOPHEN]Drug Xjvlmta39-73-6648XfpIbkpml [facility] System (1 source)Acetaminophen / oxyCODONEDrug Jpuupts14-95-8728[facility] (1 source)HYDROcodoneDrug Djekkuv65-91-0828[facility] Medications Current Medications MedicationDrug Class(es)DatesSig (Normalized)Sig (Original)Albuterol (7 sources)beta2-Adrenergic AgonistALBUTEROL INHALATION Inhale by mouth. Active take 2 puff(s) by inhalation every six hours as needed for wheezingalbuterol (PROVENTIL HFA;VENTOLIN HFA) 90 mcg/actuation inhaler Inhale 2 puffs every 6 (six) hours as needed for wheezing. Lylixh18 actuat budesonide 0.08 mg/actuat / formoterol fumarate [...] calcium gluconate 20 mg/ml injection (1 source)Start: 30-75-9026woer 4-4.3 mg intravenously every hour as needed2,000 mg, intravenous, at 50 mL/hr, Administer over 2 Hours, As needed, ionized calcium 4 to 4.3 mg/dL, Starting on Thu06/22/24 at 0301, IV Administration of calcium via a central or deep vein preferred. Avoid administration in small hand veins VESICANT (RED)calcium gluconate 3,000 mg in sodium chloride 0.9 % 100 mL IVPB (1 source)Start: 44-86-1504rgwi 3.5-3.9 mg intravenously every hour as needed 3,000 mg, intravenous, at 43.3 mL/hr, Administer over 3 Hours, As needed, ionized calcium 3.5 to 3.9 mg/dL, Starting on Thu06/22/24 at 0301, IV Administration of calcium via a central or deep vein preferred. Avoid administration in small hand veins VESICANT (RED)calcium gluconate 4,000 mg in sodium chloride 0.9 % 250 mL IVPB (1 source)Start: 90-05-2918yvkw 3.4 mg intravenously every hour as needed4,000 mg, intravenous, at 72.5 mL/hr, Administer over 4 Hours, As needed, ionized calcium 3.4 mg/dLor less, Starting on Thu06/22/24 at 0301, IV administration of calcium via a central or deep vein is preferred. Avoid administration in small hand veins. VESICANT (RED)cephalexin 500 mg oral capsule (1 source)Cephalosporin Antibacterial End: 10-87-6351mbmn 1 capsule by mouth twice dailyCEPHalexin (KEFLEX) 500 mg capsule Take 500 mg by mouth 2 (two) times a day. 06/22/2024 Discontinued (Stop Taking at Discharge)cyclobenzaprine hydrochloride 10 mg oral tablet (13 sources)Muscle RelaxantStart: 05-90-8925ifwr 1 tablet by mouth three times dailycyclobenzaprine (FLEXERIL) 10 MG tablet TAKE 1 TABLET BY MOUTH THREE TIMES A DAY FOR 30 DAYS 12/31/2024 Active1 ml dexamethasone phosphate 10 mg/ml prefilled syringe (1 source)CorticosteroidStart: 85-25-845825 mg, IntraVENous, EVERY 8 HOURS, First dose on Thu12/03/24 at 0700diazePAM 5 mg oral tablet (4 sources)BenzodiazepineStart: 02-22-2025 End: 73-52-0211uggjeOEQ (Valium) 5 MG tablet Indications: Failed back [...] prefilled syringe (1 source)Low Molecular Weight HeparinStart: 53-54-4276iopohv 40 mg by subcutaneous injection once daily40 [...] oral capsule (2 sources)Anti-epileptic AgentStart: 06-22-2024 End: 86-64-9216vkdt 1 capsule by mouth three times dailygabapentin [...] VESICANT (RED) Warning: HYPERTONIC solution.Start: 06-22-2024 End: 39-84-8630zrwz 70 mg intravenously every ayya171 mL/hr, intravenous, Continuous PRN, blood glucose less [...] sources)Nonsteroidal Anti-inflammatory Drug, Cyclooxygenase InhibitorStart: 06-22-2024 End: 40-93-2741vljh 15 mg intravenously every six hours as needed for pain15 mg, intravenous, Every 6 hours PRN, moderate pain - pain scale 4-6, Starting on Thu06/22/24 at 0911, For 3 days, Look-alike/sound-alike medication - verify indication for use. Duration of therapyis not to exceed 5 days. Maximum recommended dose + 120mg/24 hours.Start: 06-22-2024 End: 56-10-856941 mg, intravenous, Once, On Thu06/22/24 at 0125, For 1 dose, Look-alike/sound-alike medication - verify indication for use. Duration of therapy is not to exceed 5 days. Maximum recommended dose + 120mg/24 hours. lidocaine 0.05 mg/mg medicated patch (17 sources)Antiarrhythmic, Amide Local AnestheticStart: 36-99-4715sqjwu 1 dose transdermal route every twenty-four hourslidocaine (LIDODERM) 5 % patch Place 1 Patch on the skin every 24 hours. 06/22/2024 ActiveStart: 13-62-1258flrva 1 dose transdermal route once daily, then apply 1 dose transdermal route every twelve hourslidocaine (LIDODERM) 5 % Place 1 patch on the skin daily. Remove & Discard patch within 12 hours or as directed by 30 patch 06/22/2024 Qrubsn05 ml magnesium sulfate 40 mg/ml injection (2 [...] 500 mg oral tablet (3 sources)Muscle RelaxantStart: 09-71-2375Ijjje: 06-18-2024 End: 13-25-5528gwwp 1 tablet by mouth in the morning, [...] oral tablet (4 sources)Leukotriene Receptor Antagonist End: 61-04-9384gllp 1 tablet by mouth once dailymontelukast (SINGULAIR) 10 MG tablet TAKE 1 TABLET BY MOUTH EVERY DAY FOR 30 DAYS; Duration: 30 Active1 ml morphine sulfate 2 mg/ml injection (2 sources)Opioid AgonistStart: 23-52-9418vamg 2 mg intravenously every four hours as [...] tablet (1 source)Serotonin-3 Receptor AntagonistStart: 04-12-2024 End: 12-86-2543jecx 1 tablet by mouth every eight hours as needed for nausea ondansetron ODT (ZOFRAN ODT) 4 mg disintegrating tablet Dissolve 1 tablet (4 mg total) on tongue every 8 (eight) hours as needed for nausea for up to 10 doses. 10 tablet 04/12/2024 06/22/2024 Discontinued (Stop Taking at Discharge) ondansetron (ZOFRAN-ODT) disintegrating tablet 4 mg (1 source)Start: 77-74-8957mhzssddefnq (ZOFRAN-ODT) disintegrating tablet 4 mg pantoprazole 20 mg delayed release oral tablet (1 source)Proton Pump InhibitorStart: 04-12-2024 End: 06-74-1863pzde 1 tablet by mouth in the morningpantoprazole (PROTONIX) 20 mg EC tablet Take 1 tablet (20 mg total) by mouth in the morning. 20 tablet 04/12/2024 06/22/2024 Discontinued (Stop Taking at Discharge)Potassium Chloride (1 source)Start: 89-69-0289fijetxdnh chloride (K-TAB,KLOR-CON) CR tablet 30-50 mEqsodium phosphate 20 mmol in sodium chloride 0.9 % 250 mL IVPB (1 source)Start: 34-47-7794kzfsou phosphate 20 mmol in sodium chloride 0.9 % 250 mL IVPBtiZANidine 4 mg oral tablet (4 sources)Central alpha-2 Adrenergic AgonistStart: 91-32-0252kdwb 1 tablet by mouth every six hours as neededtiZANidine (ZANAFLEX) 4 mg tablet Take 1 tablet (4 mg total) by mouth every 6 (six) hours as neededfor muscle spasms. 30 tablet 06/22/2024 Active Completed/Discontinued Medications MedicationDrug Class(es)DatesSig (Normalized)Sig (Original)acetaminophen 325 mg oral tablet (2 sources)Start: 94-17-6407739 mg, Oral, EVERY 6 HOURS, First dose on 12/03/24 at 0400, Until Discontinued, Maximum dose of acetaminophen is 4000 mg from all sources in 24 hours., Post-opStart: 47-36-7592qowd 1 tablet by mouth every six hours as needed for vmavndwx074 mg, oral, Every 6 hours PRN, headaches, temperature greater than 38.3 C, Starting on Thu06/22/24 at 0301 gadoteridol (PROHANCE) injection 10 mL (1 source)Start: 12-03-2024 End: 61-26-6364xjcu 1 dose intravenously once10 mL, IntraVENous, IMG ONCE PRN, 1 dose, Starting on 12/03/24 at 0528, Until 12/03/24 at 0528,Other24 hr metoprolol succinate 50 mg extended release oral tablet (14 sources)beta-Adrenergic BlockerStart: 01-14-2025 End: 93-03-2120jrkghknvek (TOPROL-XL) 50 mg XL tablet 01/14/2025 05/02/2025 DiscontinuedStart: 00-38-2784rnxwxumwTVNO 3 mg/ml oral solution (3 sources)CorticosteroidStart: 06-22-2024 End: 32-38-3401ayeq 13.3 mL by mouth in the morningprednisoLONE [...] or Central Line = 20 mL/lumen, Post-opStart: 19-27-5538CzzepVCKzvu, at 5-250 mL/hr, PRN, if patient receiving [...] Starting on Thu06/22/24 at 0301Start: 06-22-2024 End: 25-37-9307toyv 20 mL intravenously every hour as hfiuxt07 mL/hr, intravenous, Continuous PRN, to maintain patency of lines, Starting on Thu06/22/24 at 0301, For 1 day Problems Active Problems Problem ClassificationProblemDateDocumented DateEpisodic/ChronicAcute cerebrovascular disease (1 source)Acute cerebrovascular diseaseOnset: 63-19-7488Lprwtyq disorders (5 sources)Posttraumatic stress disorder; Translations: [Post-traumatic stress disorder, unspecified]Onset: 913015-15-4171GnydwilMlqgok (5 sources)Asthma; Translations: [Unspecified asthma, uncomplicated]Onset: 326184-04-0391NrqhzwbJsivujrqck disorders (5 sources)Gastro-esophageal reflux disease with esophagitis; Translations: [Gastroesophageal reflux disease with esophagitis]Onset: 565578-40-5518 ChronicEssential hypertension (5 sources)Hypertensive disorder; Translations: [Essential (primary) hypertension]Onset: 911107-48-8766UnzllhaZjvhrfmi; including migraine (5 sources)Migraine; Translations: [Migraine, unspecified, not intractable, without status migrainosus]Onset: 250962-29-8616EscazcfJmarm connective tissue disease (4 sources)Atrophy of muscle of right thigh; Translations: [Muscle wasting and atrophy, not elsewhere classified, right thigh]53-95-0048XvqdglobIpriw connective tissue disease (4 sources)Muscle atrophy; Translations: [Muscle wasting and atrophy, not elsewhere classified, unspecified site]Onset: 898421-13-6153KjlnjyfgBdmdr connective tissue disease (2 sources)Neurogenic claudication; Translations: [Other symptoms and signs involving the nervous system]Onset: 161458-68-3872GjvesnleTziuh connective tissue disease (1 source)Repeated falls; Translations: [Repeated falls]Onset: 06-21-2024 EpisodicOther connective tissue disease (3 sources)Other symptoms and signs involving the musculoskeletal system; Translations: [Other symptoms and signs involving the musculoskeletal system] Onset: 56-51-8284UvaxkyrhWljfo connective tissue disease (2 sources)Musculoskeletal finding; Translations: [Other symptoms and signs involving the musculoskeletal system]Onset: 477085-29-2600XpsejvdiPumyq liver diseases (5 sources)Liver mass; Translations: [Hepatomegaly, not elsewhere classified] Onset: 867396-03-0530RdzdpkvkCsfer nervous system disorders (4 sources)Difficulty walking; Translations: [Difficulty in walking, not elsewhere classified]Onset: 905518-02-5950DhzxpztKbzyr nervous system disorders (1 source)Difficulty in walking, not elsewhere classified; Translations: [Difficulty in walking, not elsewhere classified]Onset: 15-83-9924OjdwnovPpinr nervous system disorders (20 sources)Post-surgery back bzib21-53-8006ZuiwolfoSyprz non-traumatic joint disorders (1 source)Hip painOnset: 31-39-3942JappgcycPlowf non-traumatic joint disorders (1 source)Pain in right hip; Translations: [Pain in right hip]Onset: 06-18-2024 EpisodicPeripheral and visceral atherosclerosis (1 source)Peripheral vascular disease, unspecified; Translations: [Peripheral vascular disease, unspecified]Onset: 83-63-6948HoqrfteWhzggowk codes; unclassified (2 sources)Other specified postprocedural states; Translations: [Other specified postprocedural states]Onset: 65-31-4933ZkuipmedXjhtoxuv codes; unclassified (2 sources)Body mass index 20-24 - normal; Translations: [Body mass index (BMI) 22.0-22.9, adult]29-78-2145OjlnauywGhvodutn codes; unclassified (1 source)Body mass index (BMI) 22.0-22.9, adult; Translations: [Body mass index (BMI) 22.0-22.9, adult]Onset: 34-18-1228PvrhrkunOnujrhwzchk; intervertebral disc disorders; other back problems (18 sources)Post-surgery back pain; Translations: [Postlaminectomy syndrome, not elsewhere classified]Onset: 052309-97-1176QwfponzJhltrnzbvqaq (1 source)ESOPHAGITIS UNSPEC WITHOUT BLEEDING; Translations: [ESOPHAGITIS UNSPEC WITHOUT BLEEDING]Onset: 34-67-0220Ysylnfiwwsij (1 source)Abdominal Pain, Vomiting, DiarrheaOnset: 69-42-6216Ormhvzfftuvx (2 sources)Patient encounter xizyqc02-98-4059 Past or Other Problems Problem ClassificationProblemDateDocumented DateEpisodic/ChronicAbdominal pain (1 source)Abdominal painOnset: 80-94-2064HxkcjwsoTswnscca of urinary tract (5 sources)Kidney stone; Translations: [Calculus of kidney]Onset: 12-02-2024 81-57-8515CnmwovazWwluvorelx and other anemia (5 sources)Anemia; Translations: [Anemia, unspecified]Onset: 04-20-2024 72-93-1433KroyuefdFqxdddbby and duodenitis (4 sources)Gastritis, unspecified, without bleeding; Translations: [GASTRITIS UNS WITHOUT BLEEDING]Onset: 79-18-4350TjldahnuVikb disorders (3 sources)Mood disordersOnset: Nausea and vomiting (2 sources)Nausea with vomiting, unspecified; Translations: [Vomiting]Onset: 95-31-9719AucgghakEmzvfcnbfjgvm gastroenteritis (1 source)Noninfective gastroenteritis and colitis, unspecified; Translations: [Noninfective gastroenteritis and colitis, unspecified]Onset: 56-29-3631Dnporqer Other connective tissue disease (3 sources)Muscle wasting and atrophy, not elsewhere classified, right thigh; Translations: [Muscle wasting and atrophy, not elsewhere classified, right thigh]Onset: 17-76-2216QjrruilwDsyrs connective tissue disease (2 sources)Pain in lower limbOnset: 95-67-9463DolfnrjaMdlnx gastrointestinal disorders (1 source)Diarrhea, unspecified; Translations: [Diarrhea, unspecified]Onset: 23-32-2893MpjjfmvcRwcft gastrointestinal disorders (1 source)DiarrheaOnset: 21-45-7871CxuseyflDpxpzhyagls; intervertebral disc disorders; other back problems (15 sources)Backache; Translations: [Dorsalgia, unspecified]Onset: 06-21-2024 93-83-4565Mcpfcofw Results Test NameValueInterpretationReference RangeFacilityAnesthesia Postprocedure Evaluationon 01-36-1410Mfulbosdkrnav Authentication Interface Message Text Anesthesia Postoperative Assessment: [...] ANESTHESIA NOTABLE EVENTS: No notable events documented.NormalThe [facility] SystemAnesthesia Transfer Of Careon 66-43-2533Fezsiwkoaanss Authentication Interface Message TextPatient taken to PACU. Patient was awake, comfortable, and stable on arrival. Anesthesia Transfer of Care Note Past Medical History: Medical History[1] Sleep Apnea/Positive STOP-BANG: No Problem List: Problem List[2] Past Surgical History: There is no previous surgical history on file. Allergies: Hydrocodone-acetaminophen Basic Operating Room Facts: Surgeon(s): Eloisa Beasley MD Anesthesiologist: Campos Waller MD DRUPAL DEVELOPER: Samantha Hernandez APRN-LOU Circulation Tender: Mil Wolfe MD REMOVAL POSTERIOR SPINAL INSTRUMENTATION, [...] Migraine headache G43.909 Posttraumatic stress disorder F43.10NormalThe [facility] Medical CenterThe Auto Vault SystemBlood Attestationon 35-53-7777Conyqxqdrdcro Authentication Interface Message TextBlood Attestation: ATTESTATION OF INFORMED CONSENT FOR BLOOD: The transfusion of blood and/or blood components were discussed with the patient and/or legal cash applications representative. The risks, benefits and alternatives were reviewed. Questions regarding blood transfusions were answered. The patient /or the patient's legal cash applications representative agree with the plan for transfusion of blood and/or blood components.NormalThe [facility] SystemBrief Operative Noteon 15-36-7395Smuuupyovxncw Authentication Interface Message TextBrPeloton Document Solutions Operative Note MAIN OR 01 Doug Whiting 35 year old female Surgical Contact Serial Number: [id number] Preoperative Diagnosis: Pre-op Diagnosis * Failed back 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] Postoperative Diagnosis: * Failed back 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] Procedures: L5-S1 exploration and revision of hardware Posterolateral fusion L5-S1 Surgeon(s): Surgeon(s): Eloisa Beasley MD Staff: Scrub: Marylou Haney RN; Jomar Paige CST Line Out Worker Nurse: Marcos Huerta RN Site Auditor: Fred Camp Hedis Analyst: Rafa Sheehan MD Anesthesia: General Anesthesiologist: Campos Waller MD DRUPAL DEVELOPER: Samantha Hernandez APRN-LOU Circulation Tender: Mil Wolfe MD Specimen(s): * No specimens [...] by Rafa Sheehan MD 05/10/2025 9:41 AMNormalThe [facility] CenterOxford Performance Materials System Consultson 98-16-0945Hiyiddcxsehqt Authentication Interface Message Text Occupational Therapy and Physical Therapy Consult received, chart reviewed. Attempted to see pt for OT/PT evaluation with pt reporting doctor requested pt stay in bed post-op day 0 with plan to start therapy tomorrow. RN notified and reached out to via [facility] [employer] Secure Chat and clarified order via Dr. Beasley for bedrest today with no head of bed restrictions with plan to start therapy tomorrow. Plan to HOLD evaluation this date and complete when appropriate. Radha Ayala OTD, OTR/L Sujey David PT B. [phone] Pungo HospitalOxford Performance Materials SystemOP Noteon 64-93-4558Xgtcroudlnynj Authentication Interface Message TextName: DOUG WHITING MR#: [id number] ENC#: [id number] Date of Procedure: 05/10/2025 ATTENDING SURGEON: Eloisa Beasley MD PACKAGING MACHINE SUPPLIES DISTRIBUTOR: Rafa Sheehan MD PREOPERATIVE DIAGNOSES: 1. Status [...] We then were able to take a [place] 1 between the pedicle screws and distract; [...] in layers over vancomycin powder and a 10-Polish round Hemovac drain. Simple interrupted #2 Vicryl [...] surgery. She will be maintained with a IT APPLICATIONS ANALYST for her pain control. She will receive a standing AP and lateral lumbar spine x-ray when she is able. She will most likely require a 3-4 day hospital stay. MD MARQUISE Castillo/Tex/Dict: 05/10/2025 09:29:41 TRANS: 05/10/2025 13:09:03 JOB: [id number] DictJob#: [id number] [facility] SystemOR Nursingon 21-29-6364Yktrlrblnqckg Authentication Interface Message TextFour Caps, two Rods, and four screws from previous surgery at outside hospital from patients spine per Dr Beasley.NormalThe [facility] SystemProgress Noteson 46-08-6993Mgvjijobqsenk Authentication Interface Message Textpatient prone on wilson [...] no points of pressure directly on skinNormalThe Splinter.meroThe Auto Vault SystemAnesthesia Preprocedure Evaluationon 84-24-7517Stssegoxkyfyq Authentication Interface Message TextASA: 3 No history of anesthetic complications NPO status: Greater than 8 hours Past Medical History and Review of Systems Pulmonary (+) asthma, a smoker (vape and marijuana everyday) (-) shortness of breath Dental - negative ROS Endo (-) obesity 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 The risks, benefits and alternatives were reviewed. Questions regarding anesthesia were answered. Patient and/or legal cash applications representative knows such anesthetics and procedures may be performed by Resident physicians, Certified Anesthesiologist Assistants, or Certified Nurse Anesthetists under the supervision of a physician. The patient /or the patient's legal cash applications representative agree with the plan for anesthesia. PATFORMNoFairfield Medical CenterRED BLOOD CELL COMPONENTon 82-90-2638UH ORDER ITEMProduct status info to followRochester Regional Health SystemComment on above:Performed By: #### RBO #### [facility] [address] [place] [address], [address]AAS BLOOD CELL UNIT STATUSon 07-72-4360TMQIW PRODUCT [id number] [facility] SystemComment on above:Performed By: #### RBU #### [facility] [address] [place] [address], [address]Xfalrwmnk By: #### RBU ####[facility] [id number] [place] [address], [address]BBUYS PRODUCT DESCRIPTIONRed Blood CellsNoGalion Community Hospital SystemComment on above:Performed By: #### RBU #### S PATHOLOGY LABORATORY [address] [place] [address], [phone] By: #### RBU ####S PATHOLOGY [id number] [place] [address], [address]THOPU PRODUCT STATUSNot usedNoGalion Community Hospital SystemComment on above:Performed By: #### RBU #### [facility] [address] [place] [address], [address]Kurifbabs By: #### RBU ####[facility] [id number] [place] [address], [address]KAAHV PRODUCT UNIT [id number] NormalThe [facility] SystemComment on above:Performed By: #### RBU #### [facility] [address] [place], [address]UWJXX PRODUCT UNIT [id number] [facility] SystemComment on above:Performed By: #### RBU ####S PATHOLOGY [id number] [place], [address]HDZVR PRODUCT UNIT TYPE 6200NoGalion Community Hospital SystemComment on above:Result Comment: A PosPerformed By: #### RBU #### [facility] [address] [place], [address]Lhxrgykbs By: #### RBU ####[facility] [id number] [place], [address]RSXHDXVFZC INTERPRETATIONCompatible (E)NormalMercy Health Fairfield Hospital SystemComment on above:Performed By: #### RBU #### [facility] [address] [place] [address], [address]Dpahpnrob By: #### RBU ####[facility] [id number] [place] [address], [address]Tsrnokeg Noteson 05-03-2025 Concession Stand Attendant Authentication Interface Message TextE-Consult is requested for [...] post-op CV event rate. Inder Gregory M.D., [facility], ANNELISE order control clerk blood bank, Non-invasive cardiology. Director, Cardiac CICU and Cardiac Telemetry Director, Nuclear Cardiology The majority of the service time of 6 minutes (>50%) was devoted to the medical consultative internet discussion.NormalThe [facility] Butler HospitalBASIC METABOLIC PANELon 62-71-7848Bssot gap [Moles/Vol]13 mmol/VHnfjbo96-00Vlz [facility] SystemComment on above:Performed By: #### CH8, HEPATIC #### [facility] [address] [place] [address], [address]Hqdhwhj [Mass/Vol]9.4 mg/dLNormal8.6-10.3The [facility] CenterroHealth SystemComment on above:Performed By: #### CH8, HEPATIC #### [facility] [address] [place], [address]Jcfhujgr [Moles/Vol]104 mmol/COejzcq34-818Sna [facility] SystemComment on above:Performed By: #### CH8, HEPATIC #### [facility] [address] [place] [address], [address]FE3 [Moles/Vol]25 mmol/EEaegff11-60Smz [facility] SystemComment on above:Performed By: #### CH8, HEPATIC #### [facility] [address] [place] [address], [address]Eheictxloo [Mass/Vol]0.75 mg/dLNormal0.60-1.20The [facility] SystemComment on above:Performed By: #### CH8, HEPATIC #### [facility] [address] [place] [address], [address]GVXOJRMFR GFR (CKD-EPI)107 mL/min/1.73sqmNormal>=60The [facility] SystemComment on above:Result Comment: 2020 CKD EPI [...] Med 1 Vol. 385 Issue 19 Pages 4963-9576Performed By: #### CH8, HEPATIC #### [facility] [address] [place], [address]Jjuobfi [Mass/Vol]83 mg/hUVeteof46-989Ddc [facility] CenterroHealth SystemComment on above:Performed By: #### CH8, HEPATIC #### S [facility] LABORATORY [address] [place], [address]Nhceoevav [Moles/Vol]4.5 mmol/LNormal3.5-5.0The [facility] SystemComment on above:Performed By: #### CH8, HEPATIC #### S PATHOLOG[facility] LABORATORY [address] [place], [address]Zxfhhx [Moles/Vol]137 mmol/LJvjckb086-025Smg [facility] Medical CenterroHealth SystemComment on above:Performed By: #### CH8, HEPATIC #### S PATHOLOGY LABORATORY [address] [place] [address], [address]Xhnx nitrogen [Mass/Vol]12 mg/dLNormal7-25The MetroHealth SystemComment on above:Performed By: #### CH8, HEPATIC #### [facility] PATHOLOGY LABORATORY [address] [place] [address], [address]Fzish metabolic 2000 panelon 64-85-4176Cpalk gap [Moles/Vol]13 mmol/L10 - 20MetroHealthCalcium [Mass/Vol]9.4 mg/dL8.6 [...] Med 1 Vol. 385 Issue 19 Pages 0904-0712 Glucose [Mass/Vol]83 mg/dL74 - 109 mg/dLMetroHealthInterpretation and review of laboratory resultsNormalMetroHealthPotassium [Moles/Vol]4.5 mmol/L3.5 - 5.0 mmol/LMetroHealthSodium [Moles/Vol]137 mmol/L136 - 145 mmol/LMetroHealthUrea nitrogen [Mass/Vol]12 mg/dL7 - 25 mg/dLMetroHealthCBC WITH DIFFERENTIALon 78-47-4714Pfprhifot (Bld) [#/Vol]0.06 10*3/uLNormal0.00-0.20The [facility] CenterroOhio Valley Surgical Hospital SystemComment on above:Performed By: #### CBCDSAT ####S PATHOLOGY ACDKQEXJRE2789 [place], [address]Kkkgnotad/100 WBC (Bld) 0.8 %Normal<=1.9The [facility] CenterroHealth SystemComment on above:Performed By: #### CBCDSAT ####S PATHOLOGY QVHTIFDKAG2829 [place], [address]Pyviclockxf (Bld) [#/Vol]0.12 10*3/uLNormal0.00-0.70The [facility] SystemComment on above:Performed By: #### CBCDSAT ####S PATHOLOGY DHSRFQYMIU5443 [place], [address]Ixvycnvwqcw/100 WBC (Bld)1.7 %Normal0.1-4.0The [facility] SystemComment on above:Performed By: #### CBCDSAT ####S PATHOLOGY FGWKNDNRUK3678 [place], [address]Mxzvepclgoy distribution width (RBC) [Ratio]16.9 %High11.5-14.5The [facility] CenterHealth SystemComment on above:Performed By: #### CBCDSAT ####[facility] PATHOLOGY BPDPVVHECD3390 [place], [address]Ywortadnxm (Bld) [Volume fraction]31.4 %Low36.0-46.0The [facility] CenterHealth SystemComment on above: Performed By: #### CBCDSAT ####[facility] PATHOLOGY XMSXVJTHGK9044 [place], [address]Hnfzgdzmex (Bld) [Mass/Vol]10.3 g/dLLow12.0-15.0 The [facility] CenterHealth SystemComment on above:Performed By: #### CBCDSAT ####[facility] PATHOLOGY M[address] [place] [address], [address]Sicsuwyjqxc (Bld) [#/Vol]2.18 10*3/uLNormal1.00-4.80The [facility] SystemComment on above: Performed By: #### CBCDSAT ####[facility] PATHOLOGY DRZJHZUR[address] [place] [address], [address]Wghwlnbkney/100 WBC (Bld)30.6 %Ftodpp00.0-44.0The [facility] SystemComment on above:Performed By: #### CBCDSAT ####[facility] PATHOLOGY GMBOXWLAYO[address] [place] [address], [address]OJE (RBC) [Entitic mass]23.5 pgLow26.0-34.0The [facility] SystemComment on above:Performed By: #### CBCDSAT ####[facility] PATHOLOGY FMVIHMXVXF[address] [place] [address], [address]AHHC (RBC) [Mass/Vol]32.9 g/jQKgmxul33.0-35.9The [facility] System Comment on above:Performed By: #### CBCDSAT ####[facility] PATHOLOGY TELYCBTOKA[address] [place] [address], [address]JFK (RBC) [Entitic vol]71 qAGez73-514 The [facility] SystemComment on above:Performed By: #### CBCDSAT ####[facility] PATHOLOGY TFBQIILOEW[address] [place] [address], [address]Xkjvvarsb (Bld) [#/Vol]0.51 10*3/uLNormal0.20-1.00The [facility] CenterroHealth SystemComment on above: Performed By: #### CBCDSAT ####[facility] PATHOLOGY BXEGVFBYFP[address] [place] [address], [address]Xtacyneyb/100 WBC (Bld)7.1 %Normal2.0-11.0The [facility] CenterroHealth SystemComment on above:Performed By: #### CBCDSAT ####[facility] PATHOLOGY WDSFFKUBZM[address] [place] [address], [address]Kfjygdptxej (Bld) [#/Vol]4.27 10*3/uLNormal1.50-8.00The [facility] CenterroHealth SystemComment on above: Performed By: #### CBCDSAT ####[facility] PATHOLOGY TTVMC[address]PPQ[address] [place] [address], [address]Jjhtqmamouw/100 WBC (Bld)59.8 %Rvbred73.0-76.0The [facility] CenterHealth SystemComment on above:Performed By: #### CBCDSAT ####[facility] PATHOLOGY BTWWFAZZWA[address] [place] [address], [address]Zpzggmwk mean volume (Bld) [Entitic vol]11.7 fLHigh7.5-11.2The [facility] CenterHealth SystemComment on above: Performed By: #### CBCDSAT ####[facility] PATHOLOGY VRCWJNKBFA[address] [place] [address], [address]Drbiqqubc (Bld) [#/Vol]225 10*3/fLYebbnq427-813Iui [facility] CenterHealth SystemComment on above:Performed By: #### CBCDSAT ####[facility] PATHOLOGY JDAADTUTBS[address] [place] [address], [address]PQG (Bld) [#/Vol]4.41 10*6/uLNormal4.00-5.20The [facility] CenterHealth SystemComment on above:Performed By: #### CBCDSAT ####[facility] PATHOLOGY HOPQVQBTGU[address] [place] [address], [address]REC (Bld) [#/Vol]7.1 10*3/uLNormal4.5-11.5The [facility] System Comment on above:Performed By: #### CBCDSAT ####S PATHOLOGY RYMRPMKZHP3364 [place], [address]ZUAANMCGKWSH ABO/RHon 67-82-5145XOS and Rh group Nom (Bld)Blood group A Rh(D) positiveBarnesville Hospital Comment on above:Performed By: #### ABORH #### S PATHOLOGY LABORATORY [address] [place] [address], [address]ETIJONXN [id number] MetroHealth SystemComment on above:Performed By: #### ABORH #### [facility] PATHOLOGY LABORATORY [address] [place] [address], [address]IFOIMFA FUNCTION PANELon 27-41-4231Edbwgms [Mass/Vol] 4.5 g/dLNormal3.5-5.7The [facility] SystemComment on above:Performed By: #### CH8, HEPATIC #### [facility] PATHOLOGY LABORATORY [address] [place] [address], [address]PTN63 IU/DEusjgi33-625Cmz [facility] SystemComment on above:Performed By: #### CH8, HEPATIC #### [facility] PATHOLOGY LABORATORY [address] [place] [address], [address]VZD [Catalytic activity/Vol]8 U/LNormal7-52The [facility] SystemComment on above:Performed By: #### CH8, HEPATIC #### S PATHOLOGY LABORATORY [address] [place] [address], [address]GSF [Catalytic activity/Vol]14 U/IWclokw86-85Fhw [facility] SystemComment on above:Performed By: #### CH8, HEPATIC #### S PATHOLOGY LABORATORY [address] [place] [address], [address]Rqtpiffwr [Mass/Vol]0.2 mg/dLLow0.3-1.0The [facility] SystemComment on above:Result Comment: Note updated reference range.Performed By: #### CH8, HEPATIC #### [facility] PATHOLOGY LABORATORY [address] [place] [address], [address]GWIZ< 0.83Qwqhcb3.03-0.18The MetroHealth SystemComment on above:Performed By: #### CH8, HEPATIC #### S PATHOLOGY LABORATORY [address] [place], [address]Kymrgeg [Mass/Vol]7.0 g/dLNormal6.1-7.9The MetroHealth SystemComment on above:Result Comment: Note updated reference range.Performed By: #### CH8, HEPATIC #### [facility] PATHOLOGY LABORATORY [address] [place], [address]Msllcizkzn - Blood bankon 85-33-0753ESN and Rh group Nom (Bld)Blood group A Rh(D) positiveMetroHealthABO and Rh group Nom (Bld)No Previous ResultsMetroHealthComment on above:Patient does not require a 2nd sample drawn prior to surgery date of 05/10/25. Specimen meets [employer]'s Pre- Surgical Protocol and is valid within 30 days from date of collection but will atmidnight on the day of approved Surgery.Blood group antibody screen Ql NegativeMetroHealthABO and Rh group Nom (Bld)Blood group A Rh(D) positive MetroHealthLaboratory - Chemistry and Chemistry - challengeon 14-30-9030Fqtubuw [Mass/Vol]4.5 g/dL3.5 - 5.7 g/dLMetroHealthALP [Catalytic activity/Vol]55 U/L MetroHealthALT [Catalytic activity/Vol]8 U/LMetroHealthAST [Catalytic activity/Vol]14 U/LMetroHealthBilirubin [Mass/Vol]0.2 mg/dLLow0.3 - 1.0 mg/dL MetroHealthComment on above:Note updated reference range.Bilirubin.direct [Mass/Vol]mg/dL0.03 - 0.18 mg/dLMetroHealthProtein [Mass/Vol]7 g/dL6.1 - 7.9 g/dLMetroHealthComment on above:Note updated reference range.Laboratory - Coagulationon 39-00-4297oAKU Coag (Bld) [Time]29 sMetroHealthINR Coag (PPP) [Relative time]0.93 {INR}0.90 - 1.10MetroHealthPT Coag (PPP) [Time]10.4 s MetroHealthLaboratory - Hematology and Cell countson 07-82-9722Nkomxtzwk (Bld) [#/Vol]0.06 10*3/uL0.00 - 0.20 K/uLMetroHealthBasophils/100 WBC [...] 10*3/uL4.5 - 11.5 K/uL MetroHealthNo Panel Informationon 80-61-0242Kegumldeohtlqy and review of laboratory resultsNormalMetroHealthMetroHealthSpecimen Expiration Date [id number]bfwmkquefwdk and review of laboratory resultsAbnormalMetroHealthMetroHealthSpecimen Expiration [id number] MetroHealthMetroHealthInterpretation and review of laboratory resultsAbnormal MetroHealthMetroHealthPARTIAL THROMBOPLASTIN TIMEon 57-89-1868lVLG Coag (Bld) [Time]29 qAwvzuh69-58Lbt [facility] CenterroHealth SystemComment on above:Performed By: #### APTT, PT #### [facility] [address] [place] [address], [address]ELQKULWZYQX TIME AND INRon 59-40-2996FSO Coag (PPP) [Relative time]0.93 {INR}Normal0.90-1.10The [facility] CenterroOhio Valley Surgical Hospital SystemComment on above: Performed By: #### APTT, PT #### [facility] [address] [place] [address], [address]UM Coag (PPP) [Time]10.4 sNormal9.7-12.9The [facility] CenterroOhio Valley Surgical Hospital SystemComment on above:Performed By: #### APTT, PT #### [facility] [address] [place] [address], [address]Bajvggu Instructionson 02-80-8383Edyyetgbilyym Authentication Interface Message TextOn the morning of [...] for pain. Please hold all Vitamin E, Tippo 3, fish oil and herbal supplements for [...] otherwise contacted. ? Expect a call from [facility] one business day prior to surgery for [...] your Preparing for Your Surgery/Procedure booklet or [facility].org/surgery if you have questions. Contact the Pre-Admission Testing department at [phone] or your surgeon's office with any questions [...] stay with you after surgery. Please call [facility] [employer] if you need transportation assistance or have concerns about going home [phone]. Post-op Nausea and Vomiting: A risk of [...] of your surgery. Thank you for choosing [facility]; it is our pleasure to care for [facility] SystemProgress Noteson 97-59-6176Lkegnxfiuccry Authentication Interface Message TextPatient was identified by name and date of . Harjinder Verdin [facility] Medical CenterTranscription Authentication Interface Message TextDX: Failed back LV: [id number] Ms Whiting comes in today with family. [...] will follow up the day of their surgery.[place] LakeThe [facility] SystemTYPE AND SCREENon 46-60-2365STE and Rh group Nom (Bld)Blood group A Rh(D) positive NormalThe [facility] CenterHealth SystemComment on above:Performed By: #### TS #### S PATHOLOGY LABORATORY [address] [place] [address], [address]OXR and Rh group Nom (Bld)No Previous ResultsNoGalion Community Hospital SystemComment on above:Result Comment: Patient does not require a 2nd sample drawn prior to surgery date of 05/10/25. Specimen meets [facility]'s Pre-Surgical Protocol and is valid within 30 days from date of collection but will at midnight on the day of approved Surgery.Performed By: #### TS #### S PATHOLOGY LABORATORY [address] [place] [address], [address]CRPZ INTNegativeNoGalion Community Hospital SystemComment on above:Performed By: #### TS #### S PATHOLOGY LABORATORY [address] [place] [address], [address]KYMFIGCZ [id number] Metro[facility] SystemComment on above:Performed By: #### TS #### S PATHOLOGY LABORATORY [address] [place] [address], [address]Czrsxvfk Noteson 07-15-0890Hshfpxgptevlc Authentication Interface Message TextDX: Failed back LV: [id number] Ms Whiting returns today to review the MRIs ordered at our last visit. PE: Unchanged INV: MRI cervical and thoracic spines performed [id number] MRIs lumbar performed [id number] IMP: 35yo female s/p L5-S1 fusion with ongoing symptoms. PLAN: I told her I'm not sure where her symptoms are coming from. I don't know what happened during the second surgery to give her these symptoms. I offered her exploration of the fusion with possible repair of dural tear and reinstrumentation. She can call the office to schedule or follow up PRN.Normal The [facility] Medical CenterroThe [employer] SystemMR L-SPINE W/Oon 57-89-6168RT L-SPINE W/OAddendum Begins Addendum: EXAMINATION: MR L-SPINE [...] stenosis. Findings suggestive of arachnoiditis. arachnoiditis. MACRO: [facility] Lumbar spine WO contraston 03-09-2025 Addendum [...] Findings suggestive of arachnoiditis. arachnoiditis. MACRO: None [facility] CenterThe [employer] Lumbar spine WO contrastOrdered By: Scout Enriquez on 03-09-2025 [employer] Work Phone: MR T-SPINE W/Oon 05-30-9112WQ T-SPINE W/OEXAMINATION: MR T-SPINE W/OPRO 03/08/2025 09:25 [...] foraminal stenosis. IMPRESSION: Normal study. MACRO: NoneNormalThe [facility] CenterroHealth SystemMR Thoracic spine WO contraston 78-04-7316DKUZVQAIDYD: MR T-SPINE W/OPRO 03/08/2025 09:25 PM CLINICAL [...] MACRO: None MetroHealthMetroHealthMR Lumbar spine WO contraston 89-83-6407Ccbunfteg Study observation (narrative)MetroHealthMR Thoracic spine WO contraston 03-08-2025 Radiology Study observation (narrative)MetroHealthAddendum Noteon 02-22-2025 [employer] Authentication Interface Message TextAddended by: ELOISA BEASLEY on: 02/22/2025 03:05 AM Modules accepted: OrdersNormalThe [facility] Medical CenterThe [employer] SystemProgress Noteson 02-22-2025 [employer] Att[employer] Authentication Interface Message Lynda Bean Rebecca, [place] Can we give her something to get through the MRI';s had a hard time with the last one. [facility] is correct in chart. Valium prescription pended to Dr Beasley for approval and signature.NormalThe [facility] Medical CenterThe [employer] SystemMR C-SPINE W/Oon 68-92-2958VT C-SPINE W/OEXAMINATION: MR C- SPINE W/O CLINICAL [...] images and agree with the resident's interpretation.NormalThe [facility] Cervical spine WO contraston 68-37-8584STHTWYKVVPO: MR C-SPINE W/O CLINICAL HISTORY: Neck pain, [...] images and agree with the resident's interpretation. [facility] CampusRadiology Study observation (narrative)[facility] Cervical spine WO contrastOrdered By: Scout Enriquez on 33-05-4453FffbgBthxqz Work Phone: Progress Noteson 96-53-1033Unjzjidwpasva Authentication Interface Message TextCONSULTED BY: Gale Duran MD CC: Neck pain with headaches, lower back pain and L leg misery HPI: 35yo female s/p L5-S1 decompression and fusion done 09/16/[address] [facility] [address] Manrique, reexploration with repair of [...] receive those studies.NormalThe [facility] ANION GAPon 11-52-3974Zddqb gap [Moles/Vol]9.0 mmol/LNormal8.0-16.0SaLubbock Heart & Surgical HospitalComment on above:Result Comment: ANION GAP = Sodium -(Chloride + CO2)Performed By: #### EGFR1, ANION, HH, BMP #### [facility] [address] [place], [place] [address]Iwmxu Gapon 83-08-7476Azswg gap [Moles/Vol]9 mmol/L8.0 - 16.0 meq/LBon Secours Mercy HealthComment on above:ANION GAP = Sodium -(Chloride + CO2) Performed at [facility] [address] [place] [address] BASIC METABOL PANELon 46-84-9235Dfvzzly [Mass/Vol]9.3 mg/dLNormal8.6-10.0[facility] Medical CenterComment on above:Performed By: #### EGFR1, ANION, HH, BMP #### [facility] [address] [place] [address]KJ3 [Moles/Vol]25 mmol/MTegrgk24-73WsajxMemorial Hermann–Texas Medical Center Comment on above:Performed By: #### EGFR1, ANION, HH, BMP #### [facility] [address] [place] [address]Lwfcawgjei [Mass/Vol]0.7 mg/dLNormal0.5-0.9[facility] Medical CenterComment on above:Performed By: #### EGFR1, ANION, HH, BMP #### [facility] [address] [place] [address]Gmqlkcy [Mass/Vol]105 mg/zBCroozp09-716UqgdlMemorial Hermann–Texas Medical Center Comment on above:Performed By: #### EGFR1, ANION, HH, BMP #### [facility] [address] [place] [address]Wogp nitrogen [Mass/Vol]13 mg/dLNormal8-23[facility] Medical CenterComment on above:Performed By: #### EGFR1, ANION, HH, BMP #### [facility] [address] [place] [address]Uorbwtri [Moles/Vol]106 mmol/RDcwxad79-618EkchqMemorial Hermann–Texas Medical CenterComment on above:Performed By: #### EGFR1, ANION, HH, BMP #### [facility] [address] [place] [address]Rimgufabf [Moles/Vol]3.7 mmol/LNormal3.5-5.2SMemorial Hermann The Woodlands Medical CenterComment on above:Performed By: #### EGFR1, ANION, HH, BMP #### [facility] [address] [place] [address]Axzgtr [Moles/Vol]140 mmol/GRamxkx656-231Acjcg [facility] Medical CenterComment on above:Performed By: #### EGFR1, LISA, HH, BMP #### [facility] [address] [place], [place] [address]Ktytk metabolic 2000 panelon 94-99-7204Sqwboig [Mass/Vol]9.3 mg/dL 8.6 - 10.0 mg/dLBon [facility] Marietta Memorial HospitalComment on above:Performed at [facility] [address] [place], [place] [address]Xxzbgbbg [Moles/Vol]106 mmol/L98 - 111 meq/LBon [facility] Hospital HealthCO2 [Moles/Vol]25 mmol/L22 - 29 meq/LBon [facility] Memorial HospitalCreatinine [Mass/Vol]0.7 mg/dL0.5 - 0.9 mg/dLBon [facility] Memorial HospitalGlucose [Mass/Vol]105 mg/dL74 - 109 mg/dLBon [facility] Potassium [Moles/Vol]3.7 mmol/L3.5 - 5.2 meq/LBon [facility] Memorial HospitalSodium [Moles/Vol]140 mmol/L135 - 145 meq/LBon [facility] Memorial HospitalUrea nitrogen [Mass/Vol]13 mg/dL8 - 23 mg/dLBon [facility] Memorial HospitalEKG Rhythm Stripon 87-48-268266XOHAWGAAxrCentra [facility] Hospital72 bpmPACECentra [facility] Hospital GFR, ESTIMATEDon 84-01-8909JOL/1.73 sq M.predicted MDRD (S/P/Bld) [Vol rate/Area]mL/min/{1.73_m2}Normal>60Bon [facility] Memorial HospitalComment on above: Pediatric calculator link https://www.kidney.org/professionals/kdoqi/gfr_calculatorped Effective [...] that affects renal tubular secretion. Performed at [address] [address] Result Comment: Pediatric calculator link https://www.kidney.org/professionals/kdoqi/gfr_calculatorped Effective [...] By: #### EGFR1, ANION, HH, BMP #### [facility] [employer] [address] [place] [address]ZRV,HCTon 03-86-4766Nhvntthuoc (Bld) [Volume fraction]31.3 %Low 37.0-47.0[facility] Center PortsmouthMotionboxScotland County Memorial Hospitalment on above:Performed at [facility] [employer] [address] [address]Toystfbhi By: #### EGFR1, ANION, HH, BMP #### [facility] [address] [place] [address]Gyfiwceebk (Bld) [Mass/Vol]9.9 g/dLLow12.0-16.0[facility] [employer] [facility] on above:Performed By: #### EGFR1, ANION, HH, BMP #### [facility] [address] [place] [address]Nhffndhlvz and Hematocrit panel (Bld)on 79-52-4513Cpsjlbyrcfdigi and review of laboratory resultsAbnormalBon Holy Cross HospitalAltor Networks [facility] Charles HospitalBitboys Oy [facility] HospitalINRFOOD [facility] Surgical HospitalNo Panel Informationon 80-14-2684Utz [facility] Cross HospitalMotionboxEKG 12 Lead Ordered By: Lorie Arauz on 92-35-1115Psrxsa Dsie05LCJXcv Holy Cross HospitalMotionbox Work Phone: p Zokx27zhsxsjkEat SecMotionbox Work Phone: p-R Fzzervjb923 [facility] [employer] Work Phone: q-T Shnhvvwr600 [facility] [employer] Work Phone: [phone] Tuskcpkh297 msBon [employer] Work Phone: [phone] Calculation (Bazett)441 msBon [employer] Work Phone: [phone] Qgxt69kdfmumkElc [employer] Work Phone: [phone] Vqqe93diptybpYfy [employer] Work Phone: [phone] Wprt79RXHUrd [employer] Work Phone: [phone] [employer] Work Phone: [phone] 12 Leadon 19-31-1867Kmidri sinus rhythm with sinus arrhythmia Incomplete right bundle branch block Borderline ECG No previous ECGs available Confirmed by LORIE ARAUZ ([id number]) on 12/03/2024 7:30:17 PMWCOH STR Lorie Marie MD - 12/03/2024 Normal sinus rhythm with sinus arrhythmia Incomplete right bundle branch block Borderline ECG No previous ECGs available Confirmed by LORIE ARAUZ ([id number]) on 12/03/2024 7:30:17 PM [facility] [employer] SoftwareEKG 12-LEADon 34-96-6152QJT 12-LEAD77 77 136 110 390 441 66 30 58 Normal sinus rhythm with sinus arrhythmia Incomplete right bundle branch block Borderline ECG No previous ECGs available Confirmed by LORIE ARAUZ ([id number]) on 12/03/2024 7:30:17 PM [email or web address]&Date=&Time=13%3a15%3a27%3a00&TestType=ECG&Site=3&OutputType=PDF&Ext=PDFNormal [facility]Texas Medical CenterEKG Rhythm Stripon bpmPACEARTMount Graham Regional Medical Center [employer]72PACEARTBon [employer] SoftwareMR Brain WO and W contrast Elizabeth 40-50-8454Njuovebyatsq brain MRI. This document has been electronically signed by: Hiren Welsh MD on 12/03/2024 06:24 AMWCOPROVIDENCE REG[facility]AL [facility] Brain with and without gadolinium Comparison: None Findings: No restricted diffusion. No intra-axial mass or hemorrhage. No midline shift. No hydrocephalus. Vascular flow voids are intact. Post contrast infusion, no pathologic parenchymal or dural enhancement. No mass. The orbits are normal. The sinuses and mastoid air cells are clear. No focal bone lesion. [facility] Hiren Santizo MD - 12/03/2024 MR Brain [...] Hiren Welsh MD on 12/03/2024 06:24 AM [facility] Brain WO and W contrast IVOrdered By: Hiren Welsh on 17-58-8058OzsBon Secours St. [facility] Work Phone: Cervical spine WO and W contrast Elizabeth 44-42-8006Qf acute findings. This document has been electronically signed by: Hiren Welsh MD on 12/03/2024 06:45 AMWSEATT[facility] cervical spine with and without [...] and foramina patent throughout the cervical spine. [facility] Hiren Santizo MD - 12/03/2024 MR cervical [...] Hiren Welsh MD on 12/03/2024 06:45 AM [facility] Lumbar spine WO and W contrast [...] by: Hiren Welsh MD on 12/03/2024 06:59 AMWSEATTLE VA MEDICAL CENTER lumbar spine with and without [...] Hiren Welsh MD on 12/03/2024 06:59 AM [facility] Thoracic spine WO and W contrast Elizabeth 07-52-3535Ds acute findings. This document has been electronically signed by: Hiren Welsh MD on 12/03/2024 06:44 AMUNIVERSITY HEALTH [facility]KEWOOD [facility] CONSOLIDATEDMR thoracic spine with and without gadolinium Comparison: None FINDINGS: Vertebral alignment is within normal limits. No acute fractures or pathologic bone lesions. Paraspinal soft tissues unremarkable. Thoracic cord normal in signal and morphology. No pathologic cord enhancement post contrast infusion. No epidural collection to suggest hematoma or abscess. No appreciable degenerative change. Canal and foramina patent throughout the cervical spine. [facility] Hiren Todd MD - 12/03/2024 MR thoracic [...] Hiren Welsh MD on 12/03/2024 06:44 AM [facility] BRAIN W WO CONTRASTon 28-88-1727LOB BRAIN W WO CONTRASTMR Brain with and [...] Hiren Welsh MD 12/03/24 Final resultNormalSMemorial Hermann The Woodlands Medical CenterMRI CERVICAL SPINE W WO CONTRASTon 60-12-1088XCH CERVICAL SPINE W WO CONTRASTMR cervical spine [...] Hiren Welsh MD 12/03/24 Final resultNormalSMemorial Hermann The Woodlands Medical CenterMRI LUMBAR SPINE W WO CONTRASTon 79-81-0494SPL LUMBAR SPINE W WO CONTRASTMR lumbar spine [...] Hiren Welsh MD 12/03/24 Final resultNormalSMemorial Hermann The Woodlands Medical CenterMRI THORACIC SPINE W WO CONTRASTon 03-20-4114BKR THORACIC SPINE W WO CONTRASTMR thoracic spine [...] by: Hiren Welsh MD 12/03/24 Final resultNormalSaint North Canyon Medical CenterNo Panel Informationon 12-03-2024 Radiology Study observation (narrative)[facility] THORACIC SPINE WO CONTon 25-97-9031GM THORACIC SPINE WO CONTMR THORACIC SPINE WO [...] by Han Johnson MD on 07/05/2024 11:07 AMNormalSamaritan North Health CenterCREATININEon 32-30-5923Rrxwaxxvcm [Mass/Vol]0.72 mg/dLNormal0.40-1.00 Summa HealthComment on above:Result Comment: METHOD TRACEABLE TO IDVT STANDARDPerformed By: #### SHAYNA, PLTCT, SCHOOL TRANSPORTATION DIRECTOR #### [facility] ([id number]) [address] [facility], [address] [address]iJWZ (CKD-EPI) NON-RACE DEPENDENT>90Normal>59ProTogus Va Medical CenterComment on above:Result Comment: Reported eGFR is based on the CKD-EPI 2020 equation that does not use a race coefficient.Performed By: #### SHAYNA PLTCT, SCHOOL TRANSPORTATION DIRECTOR #### [facility] ([id number]) [address] [facility], [address] [place] [address]Dzagallclq includes GFR, serumon 34-49-6015Dsdtqyagys [Mass/Vol] 0.72 mg/dL0.40 - 1.00 mg/dLOhioHealth Arthur G.H. Bing, MD, Cancer CenterComment on above:METHOD TRACEABLE TO IDMS STANDARDeGFR (CKD-EPI)non-race dependent- [facility] Medical CenterComment on above: Reported eGFR is based on the CKD-EPI 2020 equation that does not use a race coefficient. [facility], MD, Cancer CenterHGB AND HCTon 27-39-8743Mmlybqqcmr (Bld) [Volume fraction]33.3 %Ses98-91QfrHejwxvSumma HealthComment on above:Performed By: #### SHAYNA PLTCT, SCHOOL TRANSPORTATION DIRECTOR #### [facility] ([id number]) [address] [facility], [address] [place] [address]10Yrxegxvdpz (Bld) [Mass/Vol]11.3 g/dLLow11.7-15.5PMarietta Memorial Hospital HospitalComment on above:Performed By: #### SHAYNA, PLTCT, SCHOOL TRANSPORTATION DIRECTOR #### [facility] ([id number]) [address] [facility], [address] [place], [place] [address]Nxulqhqmfq and hematocrit, bloodon 03-37-8081Vurloxrifs (Bld) [Volume fraction]33.3 %Low35 - 47 %[facility]. Bing, MD, Cancer CenterHemoglobin (Bld) [Mass/Vol]11.3 g/dLLow11.7 - 15.5 g/dLOhioHealth Arthur G.H. Bing, MD, Cancer CenterInterpretation and review of laboratory resultsAbnoNovant Health LUMBAR SPINE WO CONTon 21-20-9159PZ LUMBAR SPINE WO CONTMR LUMBAR SPINE WO [...] by Suhas Kelly MD on 06/22/2024 7:18 AMNormalWexner Medical Center Lumbar spine WO contraston 23-94-1272NZGKAB SPINE MRI WITHOUT CONTRAST History: Back pain [...] Suhas Kelly MD on 06/22/2024 7:[address] [facility] HospitalAnderson [facility]ospace Select Specialty HospitalRadiology Study observation (narrative)FinderlyMR Lumbar spine WO contrastOrdered By: Suhas Kelly on 06-22-2024 [facility] HospitalTelecom Italia Work Phone: no Panel Informationon 42-78-8695RtkAarymyGreen Cross HospitalPLATELET COUNT AND MPVon 31-66-3402Fdeqckjh mean volume (Bld) [Entitic vol]11.3 fLNormal7-12PGerman HospitalComment on above:Performed By: #### SHAYNA PLTCT, SCHOOL TRANSPORTATION DIRECTOR #### [facility] ([id number]) [address], [address] [place], [place] [address]Ubrozoulb (Bld) [#/Vol]180 10*3/tLTkaejp746-429XhgRqxhcg [facility] Health MiamisburgComment on above:Performed By: #### SHAYNA PLTCT, SCHOOL TRANSPORTATION DIRECTOR #### [facility] ([id number]) [address], [address] [place], [place] [address]Npqezuew counton 91-39-1886Qjoqdmsa mean volume (Bld) [Entitic vol]11.3 fL7 - 12 [facility] Health SystemPlatelets (Bld) [#/Vol]180 10*3/uL [facility] [employer] Select Specialty HospitalCT HIP RT WO CONTon 85-69-7101TE HIP RT WO CONTCT HIP RT WO [...] by Marcell Ralph MD on 06/21/2024 9:59 PMNShelby Memorial HospitalCT LUMBAR SPINE WO CONTon 11-68-8574VK LUMBAR SPINE WO CONTCT LUMBAR SPINE WO [...] Marco A Burleson MD on 06/21/2024 10:04 PMNShelby Memorial HospitalXR HIP RT 2-3 VIEWS W OR WO PELVISon 05-63-9535RU HIP RT 2-3 VIEWS W OR WO [...] by Yonatan Solorzano MD on 06/18/2024 4:37 AMNShelby Memorial HospitalXR SPINE LUMBAR 2 OR 3 VWSon 62-61-5364VM SPINE LUMBAR 2 OR 3 VWSXR SPINE [...] by Yonatan Solorzano MD on 06/18/2024 4:37 AMNormalSamaritan North Health CenterGI PANELon 78-97-6638Uqiedqxnrdgosbpm pathogens DNA and RNA panel ASHUTOSH+non-probe (Stl)SPECIMEN [...] detected (qualifier value) SAPOVIRUS Not detected (qualifier value)NormalNDETProStephens Memorial HospitalComment on above:Performed By: #### CBCA, CMP, 3040-3 #### [facility] ([id number]) [address] [place] [address]HXE AND AUTO DIFFon 24-83-2524NRJNYQDE BASOPHIL0.0 X10E9/L Normal0.0-0.2Pro[facility] Medical CenterComment on above:Performed By: #### CBCA, CMP, 3040-3 #### [facility] ([id number]) [address] [place] [address] 91830OZBKSRXS NEUTROPHIL9.5 X10E9/LHigh1.5-6.6Samaritan North Health CenterComment on above:Performed By: #### CANDACE GUPTA, 3039-3 #### [facility] ([id number]) [address] [place] [address] 37066Qzxugzsot/100 WBC (Bld)0.2 %[facility] Comment on above:Performed By: #### CANDACE GUPTA, 3039- #### [facility] ([id number]) [address] [place] [address] 27335Wbchazcnfrw (Bld) [#/Vol]0.0 10*3/uLNormal0.0-0.4ProStephens Memorial HospitalComment on above:Performed By: #### CANDACE GUPTA, 3 #### [facility] ([id number]) [address] [place] [address] 18144Xfdizyzeuux/100 WBC (Bld)0.3 %NormalSamaritan North Health Center Comment on above:Performed By: #### CANDACE GUPTA, 3 #### [facility] ([id number]) [address] [place] [address] 66830Jhbodoyrwqo distribution width (RBC) [Ratio]15.3 %High11.5-15.0 [facility] North Health CenterComment on above:Performed By: #### CANDACE GUPTA, 3039-3 #### [facility] ([id number]) [address] [place] [address] 62833Cpczqoacib (Bld) [Volume fraction]38.5 %Wnctwg23-38EhcPprurzSamaritan North Health CenterComment on above:Performed By: #### CANDACE GUPTA, 3039-3 #### [facility] ([id number]) [address] [place] [address] 34356Hpxrpbeprj (Bld) [Mass/Vol]12.8 g/iJKlsjti82.7-15.5PTriHealth Bethesda North HospitalComment on above:Performed By: #### CBCA, CMP, 3040-3 #### [facility] ([id number]) [address] [place] [address] 28727Zjoszuvrypv (Bld) [#/Vol]1.1 10*3/uLNormal1.0-3.5PTriHealth Bethesda North HospitalComment on above:Performed By: #### CBCA, CMP, 3039-3 #### [facility] ([id number]) [address] [place] [address] 60853Bghagnxwmkq/100 WBC (Bld)9.9 %NormalSamaritan North Health Center Comment on above:Performed By: #### CBCA, CMP, 3039-3 #### [facility] ([id number]) [address] [place] [address] 37927HRM (RBC) [Entitic mass]27.7 qqDhzoms04-67XcvTeagzbStephens Memorial HospitalComment on above:Performed By: #### CBCA, CMP, 3039-3 #### [facility] ([id number]) [address] [place] [address] 83187SMIJ (RBC) [Mass/Vol]33.2 g/vLTwhoka64-52BwyZvfeanStephens Memorial HospitalComment on above:Performed By: #### CBCA, CMP, 0-3 #### [facility] ([id number]) [address] [place] [address] 36563ING (RBC) [Entitic vol]84 jYDueknn03-835PiaGdshcb [place] HospitalComment on above:Performed By: #### CBCA, CMP, 3040-3 #### [facility] ([id number]) [address], [address] [place]LO[address] [place], [place] [address]Optpeqndn (Bld) [#/Vol]0.7 10*3/uLNormal0-0.9Sam[facility]itan North Health CenterComment on above:Performed By: #### CANDACE GUPTA, 3040-3 #### [facility] ([id number]) [address] [place] [address] 72813Nmrhsexkg/100 WBC (Bld)6.2 %NormalSamaritan North Health Center Comment on above:Performed By: #### CBCDaysi CMP, 3039-3 #### [facility] ([id number]) [address] [place] [address] 23674Ofgtstsgdlf/100 WBC (Bld)83.4 %[facility] Comment on above:Performed By: #### CANDACE GUPTA, 3039-3 #### [facility] ([id number]) [address] [place] [address], [place] [address]Zplnitcu mean volume (Bld) [Entitic vol]9.7 fLNormal7-12 [facility] Health CenterComment on above:Performed By: #### CANDACE GUPTA, 3039-3 #### [facility] ([id number]) [address] [place] [address], [place] [address]Jvrbdmrrw (Bld) [#/Vol]177 10*3/jDVcgkae982-476PdaDocmrr [place] HospitalComment on above:Performed By: #### CANDACE GUPTA, 3039-3 #### [facility] ([id number]) [address] [place] [address], [place] [address]ZCR COUNT4.62 X10E12/LNormal3.80-5.20[facility] Comment on above:Performed By: #### ALONSO CMP, 3039-3 #### [facility] ([id number]) [address] [place] [address], [place] [address]ODZ (Bld) [#/Vol]11.3 10*3/uLHigh4.0-11.0Sam[facility] North Health CenterComment on above:Performed By: #### CANDACE GUPTA, 3040-3 #### [facility] ([id number]) [address] [place] [address] 59093IKQPQYAIYZIJL METABOLIC PANELon 13-10-8518Rnuqbwa [Mass/Vol]4.8 g/dLNormal3.2-5.3PTriHealth Bethesda North HospitalComment on above:Performed By: #### CANDACE GUPTA, 0-3 #### [facility] ([id number]) [address] [place] [address] 43532SMP [Catalytic activity/Vol]51 U/HNsibcp20-735FkvNurfsaSamaritan North Health CenterComment on above:Performed By: #### CANDACE GUPTA, 3039-3 #### [facility] ([id number]) [address] [place] [address] 925[address]GTI [Catalytic activity/Vol]14 U/LNormal0-31PTriHealth Bethesda North HospitalComment on above:Performed By: #### CANDACE GUPTA, 0-3 #### [facility] ([id number]) [address] [place] [address] 24298Uwfrc gap [Moles/Vol]7 mmol/LNormal5-15Sam[facility] North Health CenterComment on above:Performed By: #### CANDACE GUPTA, 0-3 #### [facility] ([id number]) [address] [place] [address] 18709UCP [Catalytic activity/Vol]21 U/LNormal0-41ProStephens Memorial HospitalComment on above:Performed By: #### CANDACE GUPTA, 0-3 #### [facility] ([id number]) [address] [place] [address] 02514Yiirkirub [Mass/Vol]0.4 mg/dLNormal0.3-1.2PTriHealth Bethesda North HospitalComment on above:Performed By: #### CANDACE GUPTA, 3040-3 #### [facility] ([id number]) [address] [place] [address], [place] [address]Verfpvw [Mass/Vol]9.0 mg/dLNormal8.5-10.5PTriHealth Bethesda North HospitalComment on above:Performed By: #### CANDACE GUPTA, 3039-3 #### [facility] ([id number]) [address] [place] [address], [place] [address]Yxlkkpuq [Moles/Vol]103 mmol/XXoqsae58-784VpaBdcqvpStephens Memorial HospitalComment on above:Performed By: #### CANDACE GUPTA, 3039-3 #### [facility] ([id number]) [address] [place] [address] 77412KI5 [Moles/Vol]24 mmol/MGnqtcm41-46NmjPoaqsjTriHealth [facility]hes[facility] North Hospital Comment on above:Performed By: #### CANDACE GUPTA, 3039-3 #### [facility] ([id number]) [address] [place] [address] 07689Kswzykszcr [Mass/Vol]0.79 mg/dLNormal0.40-1.00Sam[facility] North Health CenterComment on above:Result Comment: METHOD TRACEABLE TO IDMS STANDARD Performed By: #### CANDACE GUPTA, 0-3 #### [facility] ([id number]) [address] [place] [address] 54739zMUP (CKD-EPI) NON-RACE DEPENDENT>90Normal>59ProStephens Memorial HospitalComment on above:Result Comment: Reported eGFR is based on the CKD-EPI 2021 equation that does not use a race coefficient.Performed By: #### CANDACE GUPTA, 3040-3 #### [facility] ([id number]) [address] [place] [address] 92917Bgypfyy [Mass/Vol]108 mg/gUYwmd80-56FzeGhjcjfStephens Memorial Hospital Comment on above:Performed By: #### CANDACE GUPTA, 3040-3 #### [facility] ([id number]) [address] [place] [address] 91140Itacymktx [Moles/Vol]4.0 mmol/LNormal3.5-5.0ProStephens Memorial HospitalComment on above:Performed By: #### CANDACE GUPTA, 3040-3 #### [facility] ([id number]) [address] [place] [address] 85443Wiocbap [Mass/Vol]7.4 g/dLNormal6.0-8.0ProStephens Memorial HospitalComment on above:Performed By: #### CANDACE GUPTA, 3040-3 #### [facility] ([id number]) [address] [place] [address] 35665Tjmjbt [Moles/Vol]134 mmol/CIkjogc167-800HpmEpmswf [place] HospitalComment on above:Performed By: #### CANDACE GUPTA, 3040-3 #### [facility] ([id number]) [address] [place] [address] 99335Rret nitrogen [Mass/Vol]13 mg/dLNormal5-23ProStephens Memorial HospitalComment on above:Performed By: #### CANDACE GUPTA, 3040-3 #### [facility] ([id number]) [address] [place] [address] 14864SA ABDOMEN AND PELVIS W CONTon 10-19-1442ZO ABDOMEN AND PELVIS W CONTCT ABDOMEN AND [...] by Koko Reyez MD on 04/12/2024 2:35 PMNormalSamaritan North Health CenterHCG ( test) Ql (U)on 58-06-8482Tobr HCG ( test) Ql (U) NegativeNormalNEGSamaritan North Health CenterComment on above:Performed By: #### 2106-3 #### [facility] ([id number]) [address] [place] [address] 90454KHVWJUfc 76-54-1925Hsuxvt [Catalytic activity/Vol]34 U/LNormal 17-40Sam[facility] North Health CenterComment on above:Performed By: #### CBCA, CMP, 3040-3 #### [facility] ([id number]) [address] [place] [address] 82010MNP MACROSCOPIC NURon 34-35-2185CTJOFXZFL NURNegativeNormalNEG ProMthomasville regional medical centera [facility] Medical CenterComment on above:Performed By: #### NUM #### [facility] ([id number]) [address] [place] [address] 86861DLHNJ/HGB NURMODERATEAbnormalNEGSamaritan North Health Center Comment on above:Performed By: #### NUM #### [facility] ([id number]) [address] [place] [address] 66362GRKUGDR NURNegativeNormalNEGSamaritan North Health CenterComment on above:Performed By: #### NUM #### [facility] ([id number]) [address] [place] [address] [place] [address]KZKTRAF NURNegativeNormalNEGProStephens Memorial HospitalComment on above:Performed By: #### NUM #### [facility] ([id number]) [address] [place] [address] [place] [address]WQPRPMJVW ESTERASE NURNegativeNormalNEGProStephens Memorial HospitalComment on above:Performed By: #### NUM #### [facility] ([id number]) [address] [place] [address] [place] [address]BSRYTKT NURNegativeNormalNEGProStephens Memorial HospitalComment on above:Performed By: #### NUM #### [facility] ([id number]) [address] [place] [address] 44793KC NUR5.7Atrgvz6.0-8.5PTriHealth Bethesda North HospitalComment on above:Performed By: #### NUM #### [facility] ([id number]) [address] [place] [address] 46860YAKAIIK NURNegativeNormalNEGProStephens Memorial HospitalComment on above:Performed By: #### NUM #### [facility] ([id number]) [address] [place] [address] [place] [address]VOAFXRDX GRAVITY NUR1.631Nozbpi0.003-1.035ProStephens Memorial HospitalComment on above:Performed By: #### NUM #### [facility] ([id number]) [address] [place] [address], [place] [address]JLGMWEQVUCBA NUR0.2 eu/dLNormal<1.1PTriHealth [facility] Comment on above:Performed By: #### NUM #### [facility] ([id number]) [address] [place] [address] [place] [address]WBE AND AUTO DIFFon 88-43-7455QLCBORGC BASOPHIL0.0 X10E9/L Normal0.0-0.2PTriHealth Bethesda North HospitalComment on above:Performed By: #### CANDACE GUPTA, 3039-3 #### [facility] ([id number]) [address] [place] [address] 83076CQVSLCCV NEUTROPHIL4.3 X10E9/LNormal1.5-6.6Sam[facility] Health CenterComment on above:Performed By: #### CANDACE GUPTA, 3039-3 #### [facility] ([id number]) [address] [place] [address] 22740Arjhrbiap/100 WBC (Bld)0.7 %[facility] Comment on above:Performed By: #### CANDACE GUPTA, 3 #### [facility] ([id number]) [address] [place] [address] 48776Hvesrvhwufu (Bld) [#/Vol]0.1 10*3/uLNormal0.0-0.4ProStephens Memorial HospitalComment on above:Performed By: #### CANDACE GUPTA, 3039-3 #### [facility] ([id number]) [address] [place] [address] 17983Kiwncbmqvvh/100 WBC (Bld)1.3 %NormalSamaritan North Health Center Comment on above:Performed By: #### CANDACE GUPTA, 3039-3 #### [facility] ([id number]) [address] [place] [address] 09874Vlkiefstcea distribution width (RBC) [Ratio]14.1 %Normal 11.5-15.0Samaritan North Health CenterComment on above:Performed By: #### CANDACE GUPTA, 3039-3 #### [facility] ([id number]) [address] [place] [address] 93339Ccbaoufffa (Bld) [Volume fraction]35.1 %Dhvrdf83-31EqeEzvtzzStephens Memorial HospitalComment on above:Performed By: #### CBCA, CMP, 3040-3 #### [facility] ([id number]) [address] [place] [address] 18990Swjwijbexj (Bld) [Mass/Vol]12.4 g/uKJfurhw43.7-15.5PTriHealth Bethesda North HospitalComment on above:Performed By: #### CBCDaysi, CMP, 0-3 #### [facility] ([id number]) [address] [place] [address] 01658Ijybgnrmxyo (Bld) [#/Vol]1.1 10*3/uLNormal1.0-3.5PTriHealth Bethesda North HospitalComment on above:Performed By: #### CBCDaysi, CMP, 3039-3 #### [facility] ([id number]) [address] [place] [address] 71088Ntywxfcyywn/100 WBC (Bld)18.5 %NormalProStephens Memorial Hospital Comment on above:Performed By: #### CBCDaysi, CMP, 3039-3 #### [facility] ([id number]) [address] [place] [address] 91607AKS (RBC) [Entitic mass]29.7 zuNhynlg12-00MqfBzsrbsStephens Memorial HospitalComment on above:Performed By: #### ALONSO CMP, 0-3 #### [facility] ([id number]) [address] [place] [address] 22916SROY (RBC) [Mass/Vol]35.3 g/cCMtlole74-22VkwMpgervStephens Memorial HospitalComment on above:Performed By: #### CBCA, CMP, 0-3 #### [facility] ([id number]) [address] [place] [address] 97631JKI (RBC) [Entitic vol]84 iXDvkrjm63-090IeaRjqpem [facility] HospitalComment on above:Performed By: #### CBCA, CMP, 0-3 #### [facility] ([id number]) [address] [place] [address] 05499Cadatcvev (Bld) [#/Vol]0.6 10*3/uLNormal0-0.9Sam[facility] Health CenterComment on above:Performed By: #### CBCDaysi, CMP, 3039-3 #### [facility] ([id number]) [address] [place] [address] 78429Pxwqidzjj/100 WBC (Bld)10.3 %[facility] Comment on above:Performed By: #### CBCDaysi, CMP, 3039-3 #### [facility] ([id number]) [address] [place] [address] 02373Lqskjgyeoja/100 WBC (Bld)69.2 %[facility] Comment on above:Performed By: #### CBCDaysi, CMP, 3039-3 #### [facility] ([id number]) [address] [place] [address] 73579Jtujwsyn mean volume (Bld) [Entitic vol]9.8 fLNormal7-12 [facility] Health CenterComment on above:Performed By: #### ALONSO, CMP, 3039-3 #### [facility] ([id number]) [address] [place] [address] 13739Tdggdkygp (Bld) [#/Vol]160 10*3/oXQkigxa971-118OolNpiztuSamaritan North Health CenterComment on above:Performed By: #### CBCA, CMP, 0-3 #### [facility] ([id number]) [address] [place] [address] 49688UPT COUNT4.17 X10E12/LNormal3.80-5.20[facility] Comment on above:Performed By: #### CBCA, CMP, 0-3 #### [facility] ([id number]) [address] [place] [address] 30933KJR (Bld) [#/Vol]6.2 10*3/uLNormal4.0-11.0ProStephens Memorial HospitalComment on above:Performed By: #### CANDACE GUPTA, 3040-3 #### [facility] ([id number]) [address] [place] [address] 45397NKCMMABBHSGXG METABOLIC PANELon 11-13-4683Mylltug [Mass/Vol]4.2 g/dLNormal3.2-5.3ProMedBellwood General HospitalComment on above:Performed By: #### CANDACE GUPTA, 0-3 #### [facility] ([id number]) [address] [place] [address] 31072BLS [Catalytic activity/Vol]50 U/FTrjmmr57-027MerZzweaoStephens Memorial HospitalComment on above:Performed By: #### CANDACE GUPTA, 0-3 #### [facility] ([id number]) [address] [place] [address] 42555JCX [Catalytic activity/Vol]18 U/LNormal0-31PTriHealth Bethesda North HospitalComment on above:Performed By: #### CANDACE GUPTA, 3040-3 #### [facility] ([id number]) [address] [place] [address]65[address]Ylywf gap [Moles/Vol]5 mmol/LNormal5-15ProStephens Memorial HospitalComment on above:Performed By: #### CANDACE GUPTA, 3040-3 #### [facility] ([id number]) [address] [place] [address] 71857SPM [Catalytic activity/Vol]20 U/LNormal0-41ProStephens Memorial HospitalComment on above:Performed By: #### CANDACE GUPTA, 0-3 #### [facility] ([id number]) [address] [place] [address], [place] [address]Sbhuahdwj [Mass/Vol]0.2 mg/dLLow0.3-1.2PTriHealth Bethesda North HospitalComment on above:Performed By: #### CANDACE GUPTA, 3040-3 #### [facility] ([id number]) [address] [place] [address], [place] [address]Kxhxyzg [Mass/Vol]8.8 mg/dLNormal8.5-10.5PTriHealth Bethesda North HospitalComment on above:Performed By: #### CANDACE GUPTA, 3039-3 #### [facility] ([id number]) [address] [place] [address], [place] [address]Gcxgsofk [Moles/Vol]104 mmol/WJlrbog65-464PelJjeduoStephens Memorial HospitalComment on above:Performed By: #### CANDACE GUPTA, 3039-3 #### [facility] ([id number]) [address] [place] [address], [place] [address]IW4 [Moles/Vol]25 mmol/USoimhs34-68RrmSnarkyTriHealth Bethesda North Hospital Comment on above:Performed By: #### CANDACE GUPTA, 3039-3 #### [facility] ([id number]) [address] [place] [address] 25291Lsionkmpck [Mass/Vol]0.63 mg/dLNormal0.40-1.00ProStephens Memorial HospitalComment on above:Result Comment: METHOD TRACEABLE TO IDMS STANDARD Performed By: #### CANDACE GUPTA, 0-3 #### [facility] ([id number]) [address] [place] [address]3738kBOT (CKD-EPI) NON-RACE DEPENDENT>90Normal>59ProStephens Memorial HospitalComment on above:Result Comment: Reported eGFR is based on the CKD-EPI 2020 equation that does not use a race coefficient.Performed By: #### CANDACE GUPTA, 0-3 #### [facility] ([id number]) [address] [place] [address], [place] [address]Gadexem [Mass/Vol]116 mg/jHUhjd15-36SvuMfyeqhStephens Memorial Hospital Comment on above:Performed By: #### CANDACE GUPTA, 0-3 #### [facility] ([id number]) [address] [place] [address], [place] [address]Jjifjthrx [Moles/Vol]3.8 mmol/LNormal3.5-5.0ProStephens Memorial HospitalComment on above:Performed By: #### CANDACE GUPTA, 3039-3 #### [facility] ([id number]) [address] [place] [address], [place] [address]Pnccklq [Mass/Vol]6.7 g/dLNormal6.0-8.0ProStephens Memorial HospitalComment on above:Performed By: #### CANDACE GUPTA, 3039-3 #### [facility] ([id number]) [address] [place] [address], [place] [address]Sfnrrs [Moles/Vol]134 mmol/DDnjsuf249-819GhhBgeqrf Fremont HospitalComment on above:Performed By: #### CANDACE GUPTA, 0-3 #### [facility] ([id number]) [address] [place] [address], [place] [address]Wpae nitrogen [Mass/Vol]10 mg/dLNormal5-23ProStephens Memorial HospitalComment on above:Performed By: #### CANDACE GUPTA, 3039-3 #### [facility] ([id number]) [address] [place] [address], [place] [address]PLL ( test) Ql (U)on 52-71-5530Jlft HCG ( test) Ql (U)NegativeNormalNEGProStephens Memorial HospitalComment on above: Performed By: #### 2106-3 #### [facility] ([id number]) [address] [place] [address], [place] [address]TXIPSGic 84-00-4856Gdctfq [Catalytic activity/Vol]49 U/LHigh 17-40ProStephens Memorial HospitalComment on above:Performed By: #### ALONSO, [facility], 3040-3 #### [facility] ([id number]) [address] [place] [address]LNG MACROSCOPIC NURon 09-55-4818RNZSISCML NURNegativeNormalNEG ProMthomasville regional medical centera [facility] Medical CenterComment on above:Performed By: #### NUM #### [facility] ([id number]) [address] [place] [address]ALQGT/HGB NURNegativeNormalNEGSamaritan North Health CenterComment on above:Performed By: #### NUM #### [facility] ([id number]) [address] [place] [address] [place] [address]GJEFWDP NURNegativeNormalNEGProStephens Memorial HospitalComment on above:Performed By: #### NUM #### [facility] ([id number]) [address] [place] [address]PSLJZPR NURNegativeNormalNEGProStephens Memorial HospitalCommymichigan medical center [place] on above:Performed By: #### NUM #### [facility] ([id number]) [address] [place] [address] [place] [address]BLOZWZCQZ ESTERASE NURNegativeNormalNEGProStephens Memorial HospitalCommymichigan medical center [place] on above:Performed By: #### NUM #### [facility] ([id number]) [address] [place] [address] [id number] NURNegativeNormalNEGProStephens Memorial HospitalCommymichigan medical center [place] on above:Performed By: #### NUM #### [facility] ([id number]) [address] [place] [address] [place] [address]OJ NUR7.3Uupayu7.0-8.5PTriHealth Bethesda North HospitalComment on above:Performed By: #### NUM #### [facility] ([id number]) [address] [place] [address] 61785NWCNGDV NURNegativeNormalNEGProStephens Memorial HospitalComment on above:Performed By: #### NUM #### [facility] ([id number]) [address] [place] [address]BDJMSUBI GRAVITY NUR1.581Vvzifi7.003-1.035ProStephens Memorial HospitalComment on above:Performed By: #### NUM #### [facility] ([id number]) [address] [place] [address] 26806NIUOIWRSGUMT NUR0.2 eu/dLNormal<1.1PTriHealth Bethesda North Hospital Comment on above:Performed By: #### NUM #### [facility] ([id number]) [address] [place] [address] 95689Q PYLORI ANTIBODY IGGon 07-22-2022H. PYLORI IGG ABS0.46 Index ValueNormal0.00-0.79The St. Anthony'S HospitalComment on above:Result Comment: Negative <0.80 Equivocal 0.80 - 0.89 Positive >0.89Performed By: #### HPYLLC #### [facility] [address] [place] [address] Dr. Donna CornejoAMYLASEon 81-06-8382Jrcxrtv [Catalytic activity/Vol]83 U/LNormal 25-115The St. [facility]'S HospitalComment on above:Performed By: #### JOSE ROBERTO, CMP, LIPA, LIPID, T7, TSH #### [facility] [address] [place] [address] Dr. Donna Del Valle AUTO DIFFon 58-14-5181DVPK #0.0 103/ulNormal0.0-0.1The St. Anthony'S HospitalComment on above:Performed By: #### CBC #### [facility] [address] [place] [address] Dr. Donna CornejoBasophils/100 WBC (Bld)0.5 %Normal0.2-2.0The [facility] Comment on above:Performed By: #### CBC #### [facility] [address] [address] [address] Donna Blackburn #0.1 103/ulNormal0.0-0.7The St. Anthony'S HospitalComment on above: Performed By: #### CBC #### [facility] [address] [address] [address] Donna Arnettosinophils/100 WBC (Bld)1.7 %Normal0.9-7.0The [facility] Comment on above:Performed By: #### CBC #### [facility] [address] [place] [address] Dr. Donna Arnettrythrocyte distribution width (RBC) [Ratio]13.4 %Fbzmtq44.0-15.[address] [facility]'S HospitalComment on above:Performed By: #### CBC #### [facility] [address] [place] [address] Dr. Donna CornejoHematocrit (Bld) [Volume fraction]37.4 %Tjbijh76.0-48.0The St. [facility]'S HospitalComment on above:Performed By: #### CBC #### [facility] [address] [place] [address] Dr. Donna CornejoHemoglobin (Bld) [Mass/Vol]13.1 g/zOYviipg15.0-16.0The St[facility]'S HospitalComment on above:Performed By: #### CBC #### [facility] [address] [place] [address] Dr. Donna Gomez #0.01 10e3/ulNormal0.00-0.03The St[facility]'S HospitalComment on above:Performed By: #### CBC #### [facility] [address] [place] [address] Dr. Donna Gomez %0.2 %Normal0.0-0.5The St. Anthony'S HospitalComment on above: Performed By: #### CBC #### [facility] [address] [address] [address] Donna Covington #2.5 103/ulNormal1.2-3.8The St[facility]'S HospitalComment on above:Performed By: #### CBC #### [facility] [address] [address] [address] Donna Correamphocytes/100 WBC (Bld)41.8 %Spvnxe54.5-60.0The St[facility]'S HospitalComment on above:Performed By: #### CBC #### [facility] [address] [address] [address] Donna Aden DIFF REQNONormalThe St. Anthony'S HospitalComment on above: Performed By: #### CBC #### [facility] [address] [place] [address] Dr. Donna Angeles (RBC) [Entitic mass]28.0 znJdqtbr88.7-34.0The St[facility]'S HospitalComment on above:Performed By: #### CBC #### [facility] [address] [place] [address] Dr. Donna Angeles (RBC) [Mass/Vol]35.0 g/bRFvfzon87.9-35.2The St. Francis Hospitalment on above:Performed By: #### CBC #### [facility] [address] [place] [address] Dr. Donna Angeles (RBC) [Entitic vol]79.9 fLCritically low81.0-99.0The St. [facility]'S HospitalComment on above:Performed By: #### CBC #### [facility] [address] [place] [address] Dr. Donna Yao #0.5 103/ulNormal0.3-0.8The St. [facility]'S HospitalComment on above:Performed By: #### CBC #### [facility] [address] [place] [address] Dr. Donna Menendezocytes/100 WBC (Bld)8.5 %Normal1.7-12.0The [facility] Comment on above:Performed By: #### CBC #### [facility] [address] [place] [address] Dr. Donna CalderónUT #2.8 103/ulNormal1.4-6.5The St. Francis Hospitalment on above:Performed By: #### CBC #### [facility] [address] [place] [address] Dr. Donna Calderónutrophils/100 WBC (Bld)47.3 %Nanbeh59.0-75.0The St. [facility]'S HospitalComment on above:Performed By: #### CBC #### [facility] [address] [place] [address] Dr. Donna CornejoPlatelet mean volume (Bld) [Entitic vol]11.1 fLNormal9.5-13.5The St[facility]'S HospitalComment on above:Performed By: #### CBC #### [facility] [address] [place] [address] Dr. Donna CornejoPLT187 103/ppTgbfeq594-747Yos St. [facility]'S HospitalComment on above: Performed By: #### CBC #### [facility] [address] [place] [address] Dr. Donna CornejoRBC4.68 106/ulNormal4.20-5.40The St[facility]'S HospitalComment on above:Performed By: #### CBC #### [facility] [address] [place] [address] Dr. Donna CornejoWBC6.0 103/ulNormal4.0-11.0The [facility] on above: Performed By: #### CBC #### [facility] [address] [place] [address] Dr. Donna Sanchez THYROXINE INDEX T7on 33-52-0581MRP1.38Hqkocd5.30-4.50The [facility] on above:Performed By: #### JOSE ROBERTO, CMP, LIPA, LIPID, T7, TSH #### [facility] [address] [place] [address] Dr. Donna CornejoT3U36.0 %Zgpyut99.0-39.0The St[facility]'S HospitalComment on above: Performed By: #### JOSE ROBERTO, CMP, LIPA, LIPID, T7, TSH #### [facility] [address] [address] [address] Donna CornejoT4 [Mass/Vol]8.80 ug/dLNormal4.80-13.90The [facility] Comment on above:Performed By: #### JOSE ROBERTO, CMP, LIPA, LIPID, T7, TSH #### [facility] [address] [place] [address] Dr. Donna CornejoGLYCOHEMOGLOBIN A1Con 97-95-2107FGS RECOMMENDATIONSEE BELOWNormal The St. Anthony'S HospitalComment on above:Result Comment: ADA RECOMMENDED LIMIT 4.0 - 6.0 ADA THERAPEUTIC TARGET < 7.0 ACTION SUGGESTED > 7.0Performed By: #### A1C #### [facility] [address] [place] [address] Dr. Donna CornejoGlucose [Mass/Vol]114 mg/dLNormalThe St. Anthony'S HospitalComment on above:Performed By: #### A1C #### [facility] [address] [place] [address] Dr. Donna CornejoHbA1c (Bld) [Mass fraction]5.6 %Normal4.5-6.2The St[facility]'S HospitalComment on above:Performed By: #### A1C #### [facility] [address] [place] [address] Dr. Donna CornejoIROVeda 95-55-1834Bojf [Mass/Vol]55.0 ug/aOOgneis72.0-170.0The [facility]'S HospitalComment on above:Performed By: #### IRON #### [facility] [address] [place] [address] Dr. Donna CornejoLIPASEon 36-77-6238Tgabiw [Catalytic activity/Vol]181.0 U/LNormal 73.0-393.0The [facility]. [facility] Hospitalment on above:Performed By: #### JOSE ROBERTO, CMP, LIPA, LIPID, T7, TSH #### [facility] [address] [place] [address] Dr. Donna CornejoLIPID PROFILEon 44-47-8243LXZR-HDL RATIO NORMSWright-Patterson Medical CenterComment on above:Result Comment: 3.3 - 4.4 LOW RISK 4.4 - 7.1 AVERAGE RISK 7.1 - 11.0 MODERATE RISK >11.0 HIGH RISKPerformed By: #### JOSE ROBERTO, CMP, LIPA, LIPID, T7, TSH #### [facility] [address] [address] [address] Donna CornejoCholesterol [Mass/Vol]138 mg/dLNormal<=200[facility] Comment on above:Performed By: #### JOSE ROBERTO, CMP, LIPA, LIPID, T7, TSH #### [facility] [address] [place] [address] Dr. Donna CornejoCholesterol in HDL [Mass/Vol]53 mg/qGPhnkys65-17ZziHocking Valley Community HospitalComment on above:Performed By: #### JOSE ROBERTO, CMP, LIPA, LIPID, T7, TSH #### [facility] [address] [address] [address] Donna Tellezesterol in LDL [Mass/Vol]73.0 mg/dLSalem City HospitalComment on above:Performed By: #### JOSE ROBERTO, CMP, LIPA, LIPID, T7, TSH #### [facility] [address] [place] [address] Dr. Donna Martines.total/Cholesterol in HDL [Mass ratio]2.6 {ratio} NormalHocking Valley Community HospitalComment on above:Performed By: #### JOSE ROBERTO, CMP, LIPA, LIPID, T7, TSH #### [facility] [address] [address] [address] Donna CornejoHDRustam NORMAL> or = 60 mg/dl - LOW CARDIOVASCULAR RISK <40 mg/dl - HIGH CARDIOVASCULAR RISKSalem City HospitalComment on above:Performed By: #### JOSE ROBERTO, CMP, LIPA, LIPID, T7, TSH #### [facility] [address] [place] [address] Dr. Donna CornejoLDL CALC NORMALSEE [facility] Pointe HospitalComment on above:Result Comment: <100 mg/dl OPTIMAL 100 - 129 mg/dl NEAR OR ABOVE OPTIMAL 130 - 159 mg/dl BORDERLINE HIGH 160 - 189 mg/dl HIGH >190 mg/dl VERY HIGH Performed By: #### JOSE ROBERTO, CMP, LIPA, LIPID, T7, TSH #### [facility] [address] [place] [address] Dr. Donna CornejoTriglyceride [Mass/Vol]60 mg/dLNormal<=150The [facility] Comment on above:Performed By: #### JOSE ROBERTO, CMP, LIPA, LIPID, T7, TSH #### [facility] [address] [place] [address] Dr. Donna CornejoVLDL CALC12.0 mg/dLNormalThe St. [facility]'S HospitalComment on above: Performed By: #### JOSE ROBERTO, CMP, LIPA, LIPID, T7, TSH #### [facility] [address] [place] [address] Dr. Donna CornejoPROF 14(COMP METB)on 58-13-9445Brlyhdi [Mass/Vol]4.2 g/dLNormal 3.4-5.0The [facility]S HospitalComment on above:Performed By: #### JOSE ROBERTO, CMP, LIPA, LIPID, T7, TSH #### [facility] [address] [place] [address] Dr. Donna CornejoAlbumin/Globulin [Mass ratio]1.4 {ratio}NormalThe St. [facility]'S HospitalComment on above:Performed By: #### JOSE ROBERTO, CMP, LIPA, LIPID, T7, TSH #### [facility] [address] [place] [address] Dr. Donna Cortes [Catalytic activity/Vol]57 U/PGaxgtp51-418Nxu St. [facility]'S HospitalComment on above:Performed By: #### JOSE ROBERTO, CMP, LIPA, LIPID, T7, TSH #### [facility] [address] [place] [address] Dr. Donna Bravo [Catalytic activity/Vol]16 U/XAitxav13-72Jwp St[facility]'S HospitalComment on above:Performed By: #### JOSE ROBERTO, CMP, LIPA, LIPID, T7, TSH #### [facility] [address] [place] [address] Dr. Donna CornejoAnion gap [Moles/Vol]15.5 mmol/LNormalThe [facility] Comment on above:Performed By: #### JOSE ROBERTO, CMP, LIPA, LIPID, T7, TSH #### [facility] [address] [place] [address] Dr. Donna CornejoAST [Catalytic activity/Vol]17 U/ALpxrwz15-90Qir St[facility]'S HospitalComment on above:Performed By: #### JOSE ROBERTO, CMP, LIPA, LIPID, T7, TSH #### [facility] [address] [place] [address] Dr. Donna CornejoBilirubin [Mass/Vol]0.3 mg/dLNormal0.2-1.0The [facility] Comment on above:Performed By: #### JOSE ROBERTO, CMP, LIPA, LIPID, T7, TSH #### [facility] [address] [place] [address] Dr. Donna CornejoCalcium [Mass/Vol]9.5 mg/dLNormal8.5-10.1[facility] Comment on above:Performed By: #### JOSE ROBERTO, CMP, LIPA, LIPID, T7, TSH #### [facility] [address] [place] [address] Dr. Donna CornejoChloride [Moles/Vol]102 mmol/NOahnhe26-698Uia [facility] Comment on above:Performed By: #### JOSE ROBERTO, CMP, LIPA, LIPID, T7, TSH #### [facility] [address] [place] [address] Dr. Donna CornejoCO2 [Moles/Vol]24.7 mmol/TKunvse02.0-32.0The [facility] Comment on above:Performed By: #### JOSE ROBERTO, CMP, LIPA, LIPID, T7, TSH #### [facility] [address] [place] [address] Dr. Donna CornejoCreatinine [Mass/Vol]0.76 mg/dLNormal0.55-1.02The [facility]'S HospitalComment on above:Performed By: #### JOSE ROBERTO, CMP, LIPA, LIPID, T7, TSH #### [facility] [address] [place] [address] Dr. Donna ArnettGFR-AF EGYPTIAN>60Normal>=60The St[facility]'S HospitalComment on above:Performed By: #### JOSE ROBERTO, CMP, LIPA, LIPID, T7, TSH #### [facility] [address] [place] [address] Dr. Donna ArnettGFR-NON AF EGYPTIAN>60Normal>=60The [facility]'S HospitalComment on above:Performed By: #### JOSE ROBERTO, CMP, LIPA, LIPID, T7, TSH #### [facility] [address] [place] [address] Dr. Donna CornejoGlobulin (S) [Mass/Vol]3.0 g/dLNormalThe St. [facility]'S HospitalComment on above:Performed By: #### JOSE ROBERTO, CMP, LIPA, LIPID, T7, TSH #### [facility] [address] [place] [address] Dr. Donna CornejoGlucose [Mass/Vol]109 mg/dLCritically lvoo54-211Fvx St[facility]'S HospitalComment on above:Performed By: #### JOSE ROBERTO, CMP, LIPA, LIPID, T7, TSH #### [facility] [address] [place] [address] Dr. Donna CornejoPotassium [Moles/Vol]4.2 mmol/LNormal3.5-5.1[facility] Comment on above:Performed By: #### JOSE ROBERTO, CMP, LIPA, LIPID, T7, TSH #### [facility] [address] [place] [address] Dr. Donna CornejoProtein [Mass/Vol]7.2 g/dLNormal6.4-8.2The [facility] Comment on above:Performed By: #### JOSE ROBERTO, CMP, LIPA, LIPID, T7, TSH #### [facility] [address] [place] [address] Dr. Donna CornejoSodium [Moles/Vol]138 mmol/WTlcskm728-071Vkr [facility] Comment on above:Performed By: #### JOSE ROBERTO, CMP, LIPA, LIPID, T7, TSH #### [facility] [address] [address] [address] Donna Michaels nitrogen [Mass/Vol]11.0 mg/dLNormal7.0-18.0The [facility] on above:Performed By: #### JOSE ROBERTO, CMP, LIPA, LIPID, T7, TSH #### [facility] [address] [address] [address] Donna Michaels nitrogen/Creatinine [Mass ratio]14.5 mg/mgNormalThe St. [facility]'S HospitalCommymichigan medical center [facility] on above:Performed By: #### JOSE ROBERTO, CMP, LIPA, LIPID, T7, TSH #### [facility] [address] [place] [address] Dr. Donna Trujillo 79-77-1042BZZ9.608 uIU/mLNormal0.358-3.740The [facility] on above:Performed By: #### JOSE ROBERTO, CMP, LIPA, LIPID, T7, TSH #### [facility] [address] [place] [address] Dr. [facility]joWalker [facility] Surgery Office/Clinic Noteon 05-93-0154Jtyycde Surgery Office/Clinic NoteChief Complaint post operative follow [...] low FODMAP diet; may need to see enterprise software developer about possible food allergies; call with problems/questions. [...] virus vaccine, inactivated - Not Given Patient RefusesSCCI Hospital LimaComment on above:Result Comment: Electronically Signed By: POPPY VALDEZ, Fred Liriano\.br\Date and Time Signed: 08/29/21 16:16 ESTAmbulatory Visit Summaryon 49-08-6103Aqjyokqlgo Visit Summary DOUG WHITING :1990 Visit Date:08/28/2021 [...] Migraine Postprandial abdominal bloating Seasonal allergic rhinitis [facility] Noteon 08-25-2021 Pathology [id number]#1.00CD:[address] [place], [place] [address]Operative Reporton 76-87-4607Sjtrglsxr Report [id number]#1.00CD:[address] [place], [place] [address]Consent for Procedure/Surgeryon 75-44-8841Rmtrlva for Procedure/Surgery [id number]#1.00CD:127[facility] LimaAmbulatory Visit Summaryon 96-76-9462Cfxefiikja Visit Summary JOHANNE MIKEKarl Rustam :1990 Visit [...] degenerative disc disease Migraine Seasonal allergic rhinitis [facility]imaPhysician Referralon 07-16-2021 Physician [id number]#1.00CD:127Normal [facility] Vital Signs Date TimeVital SignValuePerforming YcxvgmktmUcgziizu24-92-1631 13:00-0500Body bezirw710.7 cmAslim Lorenz APRNHealth Global Connect Work Phone: [phone]qMjxtva05-26-9346 13:00-0500Body mass index (BMI) [Ratio]22.18 kg/q8UlryvlHeather Lorenz APRNHealth Global Connect Work Phone: [phone]dFksinb88-51-2778 13:00-0500Body ygbxchbyypq59.5 [degF]Heather Lorenz APRNHealth Global Connect Work Phone: [phone]jKerpso49-07-0481 13:00-0500Body .07 kg Heather Lorenz APRNHealth [employer] Work Phone: [phone]sIcmghn08-34-3924 13:00-0500Diastolic blood tvapsuez02 mm[Hg]Heather Lorenz APRNHealth Global Connect Work Phone: [phone]gYjxycj37-29-9147 13:00-0500Heart rate70 /min Heather Lorenz IMMUNOLOGIST-[employer]CHIT[employer] Work Phone: [phone]bWqpqaa10-00-5956 13:00-0500Respiratory rate16 /minHeather Lorenz IMMUNOLOGIST-[employer] ARCHIT[employer] Work Phone: [phone]oUvlirm16-42-5609 13:00-9013GhN0% (BldA) [Mass fraction]100 %Heather Lorenz IMMUNOLOGIST-[employer] ARCHITECT Work Phone: [phone]zVqmbmi81-53-1434 13:00-0500Systolic blood znzoczte907 mm[Hg]Heather Lorenz APRN-[employer] ARCHIT[employer] Work Phone: [phone]yXbdbyg71-63-7342 04:10-0400Body lliihawmdud98.9 [degF]Tammie Steele MD Work Phone: [employer]06-08-2025 04:10-0400Diastolic blood pmdfsahh93 mm[Hg]Tammie Steele MD Work Phone: [employer]06-08-2025 04:10-0400Heart rate86 /Jaqui Steele MD Work Phone: [employer] Fvyfxg25-53-5763 04:10-0400 Respiratory rate16 /minSenoch Steele MD Work Phone: [employer] Bbqtfl34-14-5972 04:10-2254GhX2% (BldA) [Mass fraction]100 %Tammie Steele MD Work Phone: [employer]06-08-2025 04:10-0400Systolic blood ohmnhzmw624 mm[Hg]Tammie Steele MD Work Phone: [employer]06-07-2025 00:45-0400Body .4 cmSenoch Steele MD Work Phone: [facility]06-07-2025 00:45-0400Body mass index (BMI) [Ratio]28.12 kg/k4NouijcTammie Steele MD Work Phone: [facility]06-07-2025 00:45-0400Body nqqyes09.3 kgTammie Steele MD Work Phone: [facility]12-30-2024 14:53-0500Body mass index (BMI) [Ratio]20.14 kg/o9ApjxspRenea Gonzalez MD Work Phone: [phone] [employer] Xuxhrc59-32-2286 14:53-0500Body yfemzd23.88 kgRenea Gonzalez MD Work Phone: [phone] [employer] Ygzysx64-49-6236 14:53-0500Diastolic blood bamoxmlk29 mm[Hg]Renea Gonzalez MD Work Phone: [phone] [employer] Kxhmzy20-89-0907 14:53-0500Heart rate 87 /minSethan Gonzalez MD Work Phone: [phone] [employer] Tejoyf65-77-3966 14:53-0500Systolic blood mm[Hg]Renea Gonzalez MD Work Phone: [phone] [employer] Gthhvm12-69-2744 11:43-0500Body tbqoqnituxl59.1 [degF]Delfino Harmon DO Work Phone: [facility] [employer] Zkvfkq18-20-2197 11:43-0500Diastolic blood xcjkajft91 mm[Hg]Delfino Wittters DO Work Phone: [facility] HospitalShwrüm Futofs07-12-0156 11:43-0500Heart rate 75 /minDelfino Wittters DO Work Phone: [facility] HospitalShwrüm Ydijvm40-07-4514 11:43-0500 Respiratory rate18 /minDelfino Wittters DO Work Phone: [facility] HospitalShwrüm Ypuxbf65-49-3046 11:43-1700AtL9% (BldA) [Mass fraction]98 %Delfino Harmon DO Work Phone: [employer]12-25-2024 11:43-0500Systolic blood pvzpfjfo608 mm[Hg]Delfino Harmon DO Work Phone: [facility]12-25-2024 04:13-0500Body endurh276.1 cmDelfino Harmon DO Work Phone: [facility] Center[facility]12-25-2024 04:13-0500Body mass index (BMI) [Ratio]19.64 kg/u9HydawDelfino Harmon DO Work Phone: [employer]12-25-2024 04:13-0500Body .52 kgDelfino Harmon DO Work Phone: [facility] Encounters Encounter DateEncounter TypeCare ProviderFacilityStart: 83-57-0013Bvoroywbfl and management of inpatientELOISA DaysiLong BEASLEYFacility:METROHealthStart: 05-10-2025 ambulatoryTIMJOSE ANGEL BEASLEYFacility:METROHealthStart: 05-03-2025 End: 00-30-7047Djondms encounter procedureAlerebecca Gregory MD Work Phone: [facility] [employer] [facility] CardiologyStart: 05-03-2025 End: 71-11-7963Rzdtlhm encounter statusAlerebecca Gregory MD Work Phone: [employer] Work Phone: Start: 05-02-2025 End: [id number] consultation new/estab patient 81 Breanna Kelechi IMMUNOLOGIST-SAP BW ARCHITECT Work Phone: [facility] Pre-Admission TestingComment on above: Preop testing (Primary Dx); Body mass index (BMI) 22.0-22.9, adultStart: 05-02-2025 End: 86-49-6230Gynptwb encounter statusAlexhomero Lorenz IMMUNOLOGIST-SAP BW ARCHITECT Work Phone: [facility]Start: [id number] for other preprocedural examinationASHHOMERO [facility]lin [facility] SystemStart: 05-02-2025 End: 06-57-2094Jleyer outpatient visit 25 minutesEloisa Beasley MD Work Phone: [facility] Orthopedic SpineComment on above:Failed back surgical syndrome (Primary Dx)Start: 05-02-2025 End: 62-53-0052cmyirjqkknMUACKND A. MOOREFacility:METROHealthStart: 04-29-2025 End: 58-04-7343Mfmylx encounterEloisa Beasley MD Work Phone: [facility] CenterHealthStart: 03-22-2025 End: 96-62-1598Fcbtdfnvp to same day surgery centerEloisa Beasley MD Work Phone: [facility] NeurosurgeryStart: 03-16-2025 End: 18-55-1049Jnwtce outpatient visit 15 minutesEloisa Beasley MD Work Phone: [facility] Orthopedic SpineComment on above:Failed back surgical syndrome (Primary Dx)Start: 03-16-2025 End: 67-14-2131bpesbfkbgvCZCRGAY PROVIDERFacility:METROHealthStart: 03-08-2025 End: 54-62-8237mwzvfqefyaKUZFSJT A. MOOREFacility:METROHealthStart: 03-08-2025 End: 57-46-3755Jqdxbhglqi hospital visit by physician Ip/Op Mri 1[facility] RadiologyComment on above:Failed back surgical syndromeStart: 02-07-2025 End: 78-99-3229brnhabxokiYRXHESF A. MOOREFacility:METROHealthStart: 01-27-2025 End: 16-71-8006nvzfrozljrGYOKKBB A. MOOREFacility:METROHealthStart: 01-27-2025 End: 94-13-1467Olohwlasar hospital visit by physicianRetreat Doctors' Hospital RadiologyComment on above:Failed back surgical syndromeStart: 01-27-2025 ambulatoryUNKNOWN PROVIDERFacility:METROHealthStart: 01-24-2025 End: 77-76-6460Nludqt outpatient new 45 minutesEloisa Beasley MD Work Phone: [facility] Orthopedic SpineComment on above:Failed back surgical syndrome (Primary Dx)Failed back surgical syndromeStart: 01-24-2025 End: 87-38-3698ljxagsnkfyTOJRYQP PROVIDERFacility:METROHealthStart: 12-03-2024 End: 39-71-3379Nybkmkxvjz and management of inpatientSbarrievon Octavio Steele MD Work Phone: [facility] 4AStart: 12-02-2024 End: 56-08-9799Cszxloicw department patient visitDOGraham Regional Medical Center Ambulatory PPGStart: 66-59-9577kwtpfvemmkAGENMYBaystate Noble Hospitaltart: 07-14-2024 End: 31-56-0751Cttfnc outpatient visit 15 minutesMorylie Kim MD Work Phone: [facility] FremontComment on above: Neurogenic claudication (Primary Dx)Start: 07-14-2024 End: 81-52-6325iunqcvlribWSEQUKP Octavio [facility] Ambulatory PPGStart: 07-07-2024 End: 35-01-3028rpxvtxicckLPLRQ T [facility] HospitalStart: 07-05-2024 End: 07-44-4940rzjixcqwjhQRZRWQRXR S UZELACFairfield Medical Center HospitalStart: 29-09-3103uwitbmiduuSTVDZULivingston Hospital and Health Services HospitalStart: 06-27-2024 End: 73-74-3802Qdljkx outpatient new 45 minutesRenea Gonzalez MD Work Phone: [facility] FremontComment on above:Back pain; Atrophy of muscle of right thighStart: 06-27-2024 End: 14-93-3668visoogvcfgHNTVQS G AFRIDTriHealth [facility] Ambulatory PPGStart: 06-22-2024 End: 60-51-0078afsjqvktiuUZJRWECTriHealth [facility] HospitalStart: 06-21-2024 End: 54-32-7995Tjqscnsax department patient visitYunior Harmon MD Work Phone: [facility] UnitComment on above:Back pain (Primary Dx); Atrophy of muscle of right thighStart: 06-18-2024 End: 60-28-6991Uyrntapsz department patient visitSTIVEN [facility] HospitalStart: 04-14-2024 End: 50-29-6718yrsqkfkoslEAXJJP A SEIMENTFairfield Medical Center HospitalStart: 04-12-2024 End: 43-64-7795Uicqufxqm department patient visitSTIVEN [facility] HospitalStart: 11-23-2023 End: 43-31-1580Lofienrgt department patient visitSTIVEN [facility] HospitalStart: 05-82-4355Tcuoofzab for general adult medical examination without abnormal findingsDR STIVEN HOY .[facility] HospitalStart: 07-21-2022 End: 87-15-1170yalbcwdyonIO STIVEN HOY .Facility:V5Vojym: 07-21-2022 End: 00-07-2621Vstttzwdo for general adult medical examination without abnormal findingsDR STIVEN HOY .Facility:B8Tohjt: 09-11-2021 End: 94-83-9909tkeomhrgbhBJ STIVEN HOY .Facility: Procedures DateProcedureProcedure DetailPerforming ClinicianStart: 05-02-2025 End: 66-87-4117Eavzo typing serologic aboAshhomero Kelechi IMMUNOLOGIST-SAP BW ARCHITECT Work Phone: Start: 91-64-5748Tsnpw typing, ABO, Rho(D) and RBC antibody screeningAlexhomero Kelechi IMMUNOLOGIST-SAP BW ARCHITECT Work Phone: Start: 04-76-4744Qtwjsuzmcnpdho time partial plasma/whole bloodHeather Byerstrevin IMMUNOLOGIST-SAP BW ARCHITECT Work Phone: Start: 03-08-2025 End: 07-97-2711Yye spinal canal thoracic w/o contrast Venkatesh Beasley MD Work Phone: Start: 01-27-2025 End: 16-77-4150Qyqhumcxn Comparison study - date and timeEloisa Beasley MD Work Phone: Start: 46-60-2895Llwpom ecg 1-3 leads w/interpretation & reportUnknown Provider ResultStart: 20-01-0485Etjsu gap [Moles/Vol]Tammie Steele MD Work Phone: Start: 42-58-4166Pzsyn metabolic panel calcium total Bj Diglio PA Work Phone: Start: 94-28-3896OIPDPXNYJJ FILTRATION RATE, ESTIMATED Tammie Steele MD Work Phone: Start: 44-07-1174Itqeny ecg 1-3 leads w/interpretation & reportUnknown Provider ResultStart: 12-03-2024 End: 91-86-8619Roo routine ecg w/least 12 lds i&r onlyAlexis Diglio PA Work Phone: Start: 43-02-8950Msh spinal canal cervical w/o & w/contr Leesa Steele MD Work Phone: Start: 28-65-2143Gwqjvn-up visitFollow-upMOHAMED F OSMANStart: 31-59-1661Sef spinal canal lumbar w/o contrast materialTimothy Pariseau DO Work Phone: Start: 44-11-6005Khubgvgron bloodTimothy Pariseau DO Work Phone: Plan of Treatment DateCare ActivityDetailAuthorStart: 91-79-0255Whaskaqr (RZV) Vaccine (1 of 2) Shingles (RZV) Vaccine (1 of 2)MetroHealthStart: 14-53-4809Igqzruxjzc measurementBasic Metabolic PanelMetroHealthStart: 50-26-8217EPqE,Tdap and Td Vaccines (9 - Td or Tdap)DTaP,Tdap and Td Vaccines (9 - Td or Tdap)[facility] SystemStart: 73-54-6779PBiE/Tdap/Td vaccine (8 - Td or Tdap)DTaP/Tdap/Td vaccine (8 - Td or Tdap)[facility] HospitalStart: 06-43-1792Tpdunon vaccinationTetanus (Td or Tdap) BoosterMetroHealthStart: 46-21-1795Xtqpg BMI ScreeningAdult BMI ScreeningProCleveland Clinic Fairview Hospitalca Health SystemStart: 47-14-2186Jctnauk ScreeningTobacco ScreeningProTrinity Health System [facility] Campus SystemStart: 05-23-2025 End: 62-43-8229Ikkkgsh encounter ssduwjypd26/25/2025 11:00 AM EST Office Visit [facility] Orthopedic Spine [address] [place] [phone] Eloisa Beasley MD [address] [place] [address] [facility] Orthopedic SpineStart: 05-10-2025 End: 07-94-3047Ozncmmsws to same day surgery centerFirelands [facility] Main ORComment on above:Exploration L5-S1 fusion with removal hardware, reinstrumentation, repair dural tearStart: 05-10-2025 End: 49-96-5325GVECEETKSWO AND FUSION, POSTERIOR, THORACIC LUMBARMetroOhio Valley Surgical Hospital Start: 53-52-4722Ozgcukhduv hospital visit by physicianFire[facility] Main ORStart: 05-02-2025 End: 95-59-4801Wvvrivm encounter wyjxemhaz52/04/2025 1:30 PM EST Office Visit [facility] Pre-Admission Testing [address] [place] [address] Heather Lorenz APRN-LICHA [address] [place] [address] [facility] Pre-Admission Testing Start: 05-02-2025 End: 12-09-1111Ckyhpkb encounter yvejcgvkw08/04/2025 11:45 AM EST Office Visit [facility] Orthopedic Spine [address] [place] [address] Eloisa Beasley MD [address] [place] [address] [facility] Orthopedic SpineStart: 33-35-7779Tnrszcadm vaccinationInfluenza Vaccine (#1)[facility] CampusStart: 69-94-4716FQBXV-19 Vaccine ( season)COVID-19 Vaccine ( season)MetroHealthStart: 45-03-3547QVRTZ-19 Vaccine ( season)COVID-19 Vaccine ( season)[facility] CenterHealthStart: 40-30-6296Spfgksnuz vaccination Influenza Vaccine (#1)[facility] CampusStart: 02-22-2025 End: 67-08-4869DT Lumbar spine WO contrastMR L-SPINE W/O Imaging Within 1 week Failed back surgical syndrome Expected: 02/22/2025, Expires: 02/22/2026 MetroHealthComment on above:Expected: 02/22/2025, Expires: 02/22/2026Start: 02-22-2025 End: 86-68-9928CQ Thoracic spine WO contrastMR T-SPINE W/O Imaging Within 1 week Failed back surgical syndrome Expected: 02/22/2025, Expires: 02/22/2026[facility] Work Phone: Comment on above:Expected: 02/22/2025, Expires: 02/22/2026Start: 52-63-2776Fpvtnotxz vaccinationFlu vaccine (Season Ended)[facility] HospitalStart: 01-26-2025 End: 96-89-8721VB Cervical spine WO contrastMR C-SPINE W/O Imaging Within 1 week Failed back surgical syndrome Expected: 01/26/2025, Expires: 01/26/2026[facility] Work Phone: Comment on above:Expected: 01/26/2025, Expires: 01/26/2026Start: 07-14-2024 End: 17-10-8824Tkgyzam encounter hxymlzadr82/16/2025 2:10 PM EST Office Visit [facility] [place] [address] Jose Kim MD [address], [address] [address] [facility]: 07-07-2024 End: 82-99-0442Jxqhbsb encounter kncbywjqd46/09/2025 3:30 PM EST Appointment [facility] [address] [place] [address] Delfino Harmon, [address] [place] [place] [address] [facility] - VascularStart: 07-05-2024 End: 89-14-8825Eqcbmef encounter fwsojflfk23/07/2025 10:45 AM EST Appointment [facility] - MRI Imaging [address] [place] [phone] [phone] Memorial Hospital - MRI ImagingStart: 06-22-2024 End: 04-94-4526OU.doppler Lower extremity artery - bilateralVas art duplex lwr bilateral Vascular Ultrasound Routine Back pain Atrophy of muscle of right thigh Expected: 06/22/2024, Expires: 06/22/2025[facility] Work Phone: Comment on above:Expected: 06/22/2024, Expires: 06/22/2025Start: 64-39-2716IRFWL-19 Vaccine ( season)COVID-19 Vaccine ( season)[facility] HospitalStart: 48-59-7743Vqmzsxlej vaccinationInfluenza VaccineSelect Medical [facility]Health Rehabilitation Hospital SystemStart: 75-96-4961Houmgekql for malignant neoplasm of cervixBon [facility] HospitalStart: 24-55-4484GDB Vaccine (optional start 27-45 years)HPV Vaccine (optional start 27-45 years) [facility] CampusStart: 06-44-5889Oymolglvl for malignant neoplasm of cervixPap Smear [facility] Medical Centertart: 41-93-6182Ilejjcweq A (HAV) Vaccine (optional start 19+ years)Hepatitis A (HAV) Vaccine (optional start 19+ years)[facility] Start: 92-71-1680Tfinxhbcs B vaccinationHepatitis B (HBV) Vaccine (1 of 3 - 19+ 3-dose series)[facility]Ohio [facility] Surgical HospitalStart: 67-09-8840Tmbphasqnrny vaccinationPneumococcal Vaccine(s) (1 of 2 - PCV)MetroHealthStart: 29-03-9224Ykbiymlne C screeningCarilion Clinic St. Albans HospitalStart: 22-07-0841IHK screeningWythe County Community Hospitalart: 61-28-4538Tkyqmfsfj vaccine (1 of 2 - 13+ 2-dose series)Varicella vaccine (1 of 2 - 13+ 2-dose series)[facility] HospitalStart: 93-74-3782Rsufztqvhc ScreenDepression ScreenWythe County Community Hospitalart: 59-47-2291Qiknhqtluf ScreeningDepression ScreeningSelect Medical [facility] Rehabilitation Hospital SystemLAMINECTOMY AND FUSION, POSTERIOR, THORACIC LUMBARLAMINECTOMY AND FUSION, POSTERIOR, THORACIC LUMBAR Routine scheduled Failed back surgical syndromeMetroHealthOxygen Therapy - Maintain SpO2: 90%; *BODY AND FRAME MAN Guidelines for O2: Yes; Document: \phsi.[facility].org\epic\EPIC_Reference\Orders\Respiratory Care Guidelines\CPG Oxygen 2022.pdfOxygen Therapy - Maintain SpO2: 90%; *BODY AND FRAME MAN Guidelines for O2: Yes; Document: \[employer] Groupi.[facility]edica.org\epic\EPIC_Reference\Orders\Respiratory Care Guidelines\CPG Oxygen 2022.pdf Respiratory Care Routine AsNeeded until discontinued starting 06/22/20[facility] Work Phone: Comment on above:As Needed until discontinued starting 06/22/2024Oxygen therapy [Minimum Data Set]Initiate Oxygen Therapy Protocol Respiratory Care Routine As Needed until discontinued starting 12/03/2024 [facility] HospitalComment on above:As Needed until discontinued starting 12/03/2024Spirometry panelIncentive spirometry Respiratory Care Routine Every 2hr while awake until discontinued starting 12/03/2024 [facility] Comment on above:Every 2hr while awake until discontinued starting 12/03/2024 Immunizations Immunization DateImmunizationNotesCare HfmrvucnHuvyvxsb55-50-2749cqsqkgv toxoid, reduced diphtheria toxoid, and acellular pertussis vaccine, adsorbedEloisa Beasley MD Work Phone: [phone]kOrvwxn58-30-0256wskxozl toxoid, reduced diphtheria toxoid, and acellular pertussis vaccine, adsorbedEloisa Beasley MD Work Phone: [phone]vQlwkts71-63-7067oydemqw toxoid, reduced diphtheria toxoid, and acellular pertussis vaccine, adsorbedEloisa Beasley MD Work Phone: [phone]tHidkpv26-18-5399fgwflay and diphtheria toxoids, adsorbed, preservative free, for adult use (5 Lf of tetanus toxoid and 2 Lf of diphtheria toxoid)Eloisa Beasley MD Work Phone: [phone]uYzsbvd57-39-7558qlfckay, mumps and rubella virus vaccineEloisa Beasley MD Work Phone: [facility] Payers DatePayer CategoryPayerPolicy [id number] (Managed Care)[facility] Member Subscriber Plan / Payer (Effective 2023-Present) Name: Doreen Whiting Relation to Subscriber: Self Name: Doug Whiting Payer ID: [id number] ([facility]) Group ID: [id number] Type: Medicaid HMO Address: [place] [id number] 2023MedicaidANTHEM MEDICAID [id number] 2.16840.1.587301.3.57[id number] 2.0.1.558993.3.57[id number] 2.0.1.117688.3.57[id number] 2.0.1.199480.3.579.2.43[id number] 2.0.1.520979.3.579.2.67[id number] 2.0.1.558721.3.579.2.944959-75-0618Kqxrzgl508239953 2..1.479292.3.579.2.894639-89-0962Zbvjgtz173682825 2.840.1.190491.3.57[id number] 2.0.1.091422.3.579.2.913871-55-8249Rzalfmq81054233 2..1.173605.3.579.2.195190-36-2405Vbjpuec75501793 2.0.1.401943.3.579.2.492723-49-7413Yncqspk70690429 2.840.1.978468.3.579.2.[id number] 2.840.1.039444.3.579.2.954974-69-3234Nqqubso531650554 2.16.840.1.571893.3.579.2.888543-38-1701Pwjbdqu655417990 2.16840.1.294659.3.579.2.142139-30-9407Zxwymym076445326 2.16840.1.105591.3.579.2.124884-11-0127Utmsyii346660595 2.16840.1.686085.3.579.2.6597-96-1442Wifipaj076171368 2.0.1.752283.3.579.2.61337-45-1688Biyvqfg913701974 2.840.1.253540.3.579.2.09476-65-1593Xyjyhqh120085378 2.0.1.499311.3.579.2.67865-88-4310Gcbawzx985219023 2.840.1.750967.3.579.2.57387-49-8542Ipjhjrg371232518 2.0.1.356668.3.579.2.44107-70-2352Shgrayl065677598 2.840.1.936168.3.579.2.40177-52-9006Efprrqg393743816 2.840.1.055803.3.579.2.16860-28-6626Peenasp752552636 2.16840.1.596211.3.579.2.04656-05-5700Sdqynwd991176865 2.840.1.554605.3.579.2.16936-83-2908Tdmqrte971958035 2.16840.1.213675.3.579.2.17397-02-0015Pchivas626574925 2.16840.1.664757.3.579.2.10947-82-0611Yxrjpgs454940379 2.16.840.1.551794.3.579.2.59106-33-7480Yvynaxa063276728 2.16.840.1.894611.3.579.2.84936-41-1418Idhlnoh596235860 2.16.840.1.062354.3.579.2.45434-25-8521Foogprk174885058 2.16.840.1.929376.3.579.2.67493-03-0053Kgbpzgg700276746 2.16.840.1.421230.3.579.2.42122-55-1288Idyomwy300241247 2.16.840.1.849614.3.579.2.37363-07-8041Vkgurme288404092 2.16.840.1.386235.3.579.2.32197-30-9209Cqtrrxk403231257 2.16.840.1.698913.3.579.2.76985-22-8185Zvneiaz604817936 2.16.840.1.432557.3.579.2.79180-43-4826Qeskmnm969338986 2.16.840.1.497144.3.579.2.03848-86-4579Lufvoef513807253 2..840.1.770923.3.579.2.732 [id number] 1960Unknown [id number] Social History DateTypeDetailFacilityStart: 18-31-8958Jbdctza smoking status NHISEx-smoker [facility] SystemHistory of tobacco useCurrent smokerProTrinity Health System East Campus SystemHistory of tobacco useCigarette SmokerSelect Medical TriHealth Rehabilitation Hospital SystemStart: 11-23-2023 End: 73-93-5946Rnnloup use and exposureSmokeless tobacco non-userProTrinity Health System East Campus SystemStart: 06-21-2024 End: 35-13-5469Ntknpslev beverage intakeLifetime non-drinker (finding)[facility] Centertart: 06-22-2024 End: 58-96-9659Dgvfxlq of Social functionNovant Health Matthews Medical Centertart: 06-22-2024 End: 52-66-7417SKH UtilitiesOhioHealth Arthur G.H. Bing, MD, Cancer CenterHas the electric, gas, oil, or water company threatened to shut off services in your home in past 12MoNo [facility], Cancer CenterAdolescent depression screening tbeodiaduf1BvoSanguhNovant Health Matthews Medical Centertart: 66-74-4461Xvp assigned at birthNot on fileNovant Health Matthews Medical Centertart: 02-01-2015 End: 73-77-8446TrhRwrkwt (finding)[facility], Cancer CenterTobacco smoking status NHISTobacco smoking consumption unknownBon [employer](I/We) worried whether (my/our) food would run out before (I/we) got money to buy more.Never trueMount Graham Regional Medical Center [employer] [facility] HospitalStart: 84-77-7644Rnycdws smoking status NHIS Occasional tobacco smokerMetroHealthStart: 70-13-3250Bhfmxph Commentvapes MetroHealthStart: 89-78-0806Olihqvv smoking status NHISSmokes tobacco daily MetroHealthStart: 32-25-8742Jxtnaofbo beverage intakeEx-drinker (finding) MetroHealthStart: 28-58-0201Ocxmxbz of drug misuse behaviorMisuses drugs (finding)MetroHealthStart: 46-38-7777Uiumbtw of drug misuse behaviorCannabis (substance)[facility] Clinical Notes 08-06-2021 to 05-10-2025 Note Date & LqnvHaloLsyywotv07-97-7815 NoteSurgical History and Physical [facility] Main OR [address] [facility] [id number] Name: Doug Whiting : 1990 35 year old CSN: [id number] Attending: Eloisa Beasley MD Date of Admission: [...] in visit on 05/02/25 (from the past 02826 hours) CBC WITH DIFFERENTIAL Collection Time: 05/02/25 [...] Drug use: Yes Types: Marijuana/THC Comment: dailyThe [employer].meThe [employer] Octyut95-90-8607 History of Present illness Narrative* Inder Gregory [...] post-op CV event rate. Inder Gregory M.D., [facility], ANNELISE order control clerk blood bank, Non-invasive cardiology. Director, Cardiac CICU and Cardiac Telemetry Director, Nuclear Cardiology The majority of the service time of 6 minutes (>50%) was devoted to the medical consultative internet discussion. documented in this [id number] Instructions* Patient Instructions* Heather Lorenz APRN-SAP BW ARCHITECT - 05/02/2025 1:54 PM EST On the [...] for pain. Please hold all Vitamin E, Tippo 3, fish oil and herbal supplements for [...] otherwise contacted. ? Expect a call from [facility] one business day prior to surgery for [...] your Preparing for Your Surgery/Procedure booklet or [facility].org/surgery if you have questions. Contact the Pre-Admission Testing department at [phone] or your surgeon's office with any questions [...] stay with you after surgery. Please call [facility] Social Work if you need transportation assistance or have concerns about going home [phone]. Post-op Nausea and Vomiting: A risk of [...] of your surgery. Thank you for choosing [facility]; it is our pleasure to care for you documented in this fbzqpeaxmTzxjfKazdyg76-18-4512 History of Present illness Narrative* Heather Lorenz APRN-CNP - 05/02/2025 1:30 PM EST Images from the original note were not included. Pre-Admission Testing Consultation Doug Whiting, [id number] 35 year old Female 05/03/2025 HIGH ANXIETY Consult placed to [facility] by Dr. Beasley due to significant PMH of asthma, anemia [facility] Triage Risk Score Total Score: [...] [facility] today at [facility] for a wound exploration after being seen in office with complaints of intermittent headache. In surgery it was revealed a durotomy that was repaired without complication. She was slow to wake up from anesthesia postoperatively but was having LE weakness with inability to feel her legs. CT head completed at [facility] that was negative. 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 documented in this [id number] NotePre-Admission Testing Consultation Doug Whiting, [id number] 35 year old Female 05/03/2025 HIGH ANXIETY Consult placed to [facility] by Dr. Beasley due to significant PMH of asthma, anemia [facility] Triage Risk Score Total Score: [...] L5-S1 decompression and fusion done 09/16/2024 at [facility]. She was taken back to the OR today at [facility] for a wound exploration after being seen in office with complaints of intermittent headache. In surgery it was revealed a durotomy that was repaired without complication. She was slow to wake up from anesthesia postoperatively but was having LE weakness with inability to feel her legs. CT head completed at [facility] that was negative. Patient transferred [facility] For stat imaging of the brain and entire spine. MRI imaging was unremarkable. Patient was then able to move upper and lower extremities with no issue. Patient was seen on 12/04/24 and denied any headaches or weakness. Patient was ready to go home with drain management to be done by family. STOP BANG: STOP-BANG Row Name 05/02/25 1337 History of sleep apnea? 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 Harjinder Verdin MA * Eloisa Beasley MD - 05/02/2025 7:03 AM EST DX: Failed back LV: [id number] Ms Whiting comes in today with family. [...] day of their surgery. documented in this [id number] History of Present illness Narrative* Eloisa Beasley MD - 03/15/2025 6:37 AM EDT DX: Failed back LV: [id number] Ms Whiting returns today to review the [...] or follow up PRN. documented in this [id number] Note* Addendum Note - Eloisa Beasley MD - 02/22/2025 3:05 AM EDTAddended by: ELOISA BEASLEY on: 02/22/2025 03:05 AM Modules accepted: Orders [id number] Miscellaneous Notes* Addendum Note - Eloisa Beasley MD - 02/22/2025 3:05 AM EDTAddended by: LEOISA BEASLEY on: 02/22/2025 03:05 AM Modules accepted: Orders documented in this [id number] History of Present illness Narrative* Eloisa Beasley MD - 01/24/2025 4:14 AM EDT CONSULTED BY: Gale Duran MD CC: Neck pain with headaches, lower back pain and L leg misery HPI: 35yo female s/p L5-S1 decompression and fusion done 09/16/[address] [facility] [address] Dr Manrique, reexploration with repair of [...] we receive those studies. documented in this [id number] History of Present illness Narrative* Eloisa Beasley MD - 01/24/2025 4:14 AM EDT CONSULTED BY: Gale Duran MD CC: Neck pain with headaches, lower back pain and L leg misery HPI: 35yo female s/p L5-S1 decompression and fusion done 09/16/2024 at [facility] [address] Dr Manrique, reexploration with repair of [...] we receive those studies. documented in this [id number] History of Present illness Narrative* Brandee Carr [...] Carmelina, PT - 12/03/2024 12:14 PM EDT [facility] INPATIENT PHYSICAL THERAPY EVALUATION [facility] 4A - [id number]-14/[id number]-A Discharge Recommendations: Continue to [...] L5- S1 decompression andfusion done 09/16/2024 at [facility]. She was taken back to the OR today for a wound exploration afterbeing seen in office with complaints of intermittent headache. OR today revealed a durotomy that was repaired without complication. She was slow to wake up from anesthesia postoperatively but was having LE weakness with inability to feel her legs. CT head completed at [facility] that was negative. 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 She was taken back to the OR today for a wound exploration afterbeing seen in office with complaints of intermittent headache. OR today revealed a durotomy that was repaired without complication. She was slow to wake up from anesthesia postoperatively but was having LE weakness with inability to feel her legs. CT head completed at [facility] that was negative. 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 documented [facility] Discharge instructions* Discharge Instructions* Brandee Carr RN - 12/04/2024 9:13 AM EDT Keep drain decompressed. Empty drain every 24 hours. Remove drain if less than 150 ml. Follow up appointment with Dr. Manrique as previously scheduled documented in this encounter[facility] History of Present illness Narrative* Jose Kim [...] your understanding. documented in this encounterProMedica Health [id number] Evaluation + Plan note* Assessment & Plan Note - Jose Kim MD - 07/14/2024 1:49 PM EST Associated Problem(s): Neurogenic claudication No evidence of significant peripheral arterial disease. Recommend evaluation and management by neuro spine. She is planned to have procedure. [facility]01[facility]16[facility] Miscellaneous Notes* Assessment & Plan Note - Jose Kim MD - 07/14/2024 1:49 PM ESTAssociated Problem(s): Neurogenic claudication No evidence of significant peripheral arterial disease. Recommend evaluation and management by neuro spine. She is planned to have procedure. documented in this encounterOhioHealth [facility] History of Present illness Narrative* Renea Gonzalez MD - 06/27/2024 3:00 PM EST Images from the original note were not included. [address] [id number] Subjective: Patient ID: Doug Whiting is a [...] understanding. Renea Gonzalez MD documented in this encounterOhioHealth [facility] Nurse Note* Desirae Medina LPN - 06/22/2024 1:07 PM EST Patient IV has been removed. Patient educated and has no questions or concerns. [facility]12-25-[facility] Nurse Note* Desirae Medina LPN - 06/22/2024 1:07 PM EST Patient IV has been removed. Patient educated and has no questions or concerns. documented in this encounterOhioHealth [facility]12-25-2024 Plan of care note * Plan of Care - Ynes Guerra RN - 06/22/2024 12:51 PM EST Problem: Pain Goal: Patient goal is pain score less than 4, able to rest, and participant in treatment plan as appropriate Description: INTERVENTIONS: 1. Encourage patient or legal cash applications representative to report early pain and ask [...] per policy 9. Teach patient or legal cash applications representative interventions for comforting Outcome: Adequate for [...] at the bedside 7. Instruct patient/ patient cash applications representative about use of safety devices 8. Include patient/ patient cash applications representative in decisions related to safety Outcome: [...] hygiene technique. 7. Identify and instruct patient/patient cash applications representative in use of appropriate isolation precautionsfor identified infection/symptoms. 8. Provide and discuss with patient/patient cash applications representative on educational MDRO sheet. 9. Encourage and monitor nutritional status daily and consult svp programmatic tv if indicated. 10. Implement neutropenic guidelines as needed. Outcome: Adequate for Discharge Problem: Knowledge Deficit Goal: Patient/patient cash applications representative demonstrates understanding of disease process, treatment [...] Score of =/> 25 or indicated by [facility] Rehab Assessment Goal: Patient should be free from fall Description: Interventions: 1. [place] to environment 2. Hourly rounds addressing the [...] non-skid footwear 11. Teach patient and patient cash applications representative to maintain environment for safety and [...] (cane, walker) within reach 19. Request patient cash applications representative bring adaptive equipment/mobility aids from home or obtain and provide as needed 20. Consult pharmacy regarding effects of med's affecting mobility, cognition, and alternatives 21. Obtain physician order for PT if risk factors associated with mobility are present 22. Obtain physician order for OT as appropriate 23. Utilize diversional activities 24. Educate patient and patient cash applications representative how to maintain a safe environment during visitationtimes (notify nurse prior to leaving bedside) 25. Consider appropriateness of medical or non-chief medical director 26. Set up voiding schedule as appropriate [...] pt experiencing intermittent numbness/tingling in RLE. WCTM. [facility]12-25-2024 Miscellaneous Notes* Plan of Care - Ynes Guerra RN - 06/22/2024 12:51 PM EST Problem: Pain Goal: Patient goal is pain score less than 4, able to rest, and participant in treatment plan as appropriate Description: INTERVENTIONS: 1. Encourage patient or legal cash applications representative to report early pain and ask [...] per policy 9. Teach patient or legal cash applications representative interventions for comforting Outcome: Adequate for [...] at the bedside 7. Instruct patient/ patient cash applications representative about use of safety devices 8. Include patient/ patient cash applications representative in decisions related to safety Outcome: [...] hygiene technique. 7. Identify and instruct patient/patient cash applications representative in use of appropriate isolation precautionsfor identified infection/symptoms. 8. Provide and discuss with patient/patient cash applications representative on educational MDRO sheet. 9. Encourage and monitor nutritional status daily and consult svp programmatic tv if indicated. 10. Implement neutropenic guidelines as needed. Outcome: Adequate for Discharge Problem: Knowledge Deficit Goal: Patient/patient cash applications representative demonstrates understanding of disease process, treatment [...] Score of =/> 25 or indicated by [facility] Rehab Assessment Goal: Patient should be free from fall Description: Interventions: 1. [place] to environment 2. Hourly rounds addressing the [...] non-skid footwear 11. Teach patient and patient cash applications representative to maintain environment for safety and [...] (cane, walker) within reach 19. Request patient cash applications representative bring adaptive equipment/mobility aids from home or obtain and provide as needed 20. Consult pharmacy regarding effects of med's affecting mobility, cognition, and alternatives 21. Obtain physician order for PT if risk factors associated with mobility are present 22. Obtain physician order for OT as appropriate 23. Utilize diversional activities 24. Educate patient and patient cash applications representative how to maintain a safe environment during visitationtimes (notify nurse prior to leaving bedside) 25. Consider appropriateness of medical or non-chief medical director 26. Set up voiding schedule as appropriate [...] at the bedside 7. Instruct patient/ patient cash applications representative about use of safety devices 8. Include patient/ patient cash applications representative in decisions related to safety Outcome: Progressing Note: Evaluation of progress towards goal: Pt is free from falls. Bed is in lowest position and brakes are locked. Proper identification is used. Problem: Knowledge Deficit Goal: Patient/patient cash applications representative demonstrates understanding of disease process, treatment [...] Score of =/> 25 or indicated by [facility] Rehab Assessment Goal: Patient should be free from fall Description: Interventions: 1. [place] to environment 2. Hourly rounds addressing the [...] non-skid footwear 11. Teach patient and patient cash applications representative to maintain environment for safety and [...] (cane, walker) within reach 19. Request patient cash applications representative bring adaptive equipment/mobility aids from home or obtain and provide as needed 20. Consult pharmacy regarding effects of med's affecting mobility, cognition, and alternatives 21. Obtain physician order for PT if risk factors associated with mobility are present 22. Obtain physician order for OT as appropriate 23. Utilize diversional activities 24. Educate patient and patient cash applications representative how to maintain a safe environment during visitationtimes (notify nurse prior to leaving bedside) 25. Consider appropriateness of medical or non-chief medical director 26. Set up voiding schedule as appropriate [...] Description: INTERVENTIONS: 1. Encourage patient or legal cash applications representative to report early pain and ask [...] per policy 9. Teach patient or legal cash applications representative interventions for comforting Outcome: Progressing Note: [...] at the bedside 7. Instruct patient/ patient cash applications representative about use of safety devices 8. Include patient/ patient cash applications representative in decisions related to safety Outcome: [...] hygiene technique. 7. Identify and instruct patient/patient cash applications representative in use of appropriate isolation precautionsfor identified infection/symptoms. 8. Provide and discuss with patient/patient cash applications representative on educational MDRO sheet. 9. Encourage and monitor nutritional status daily and consult svp programmatic tv if indicated. 10. Implement neutropenic guidelines as needed. Outcome: Progressing Note: Evaluation of progress towards goal: Problem: Moderate - High Risk Fall Score Description: [place] Fall Score of =/> 25 or indicated by [facility] Rehab Assessment Goal: Patient should be free from fall Description: Interventions: 1. [place] to environment 2. Hourly rounds addressing the [...] non-skid footwear 11. Teach patient and patient cash applications representative to maintain environment for safety and [...] (cane, walker) within reach 19. Request patient cash applications representative bring adaptive equipment/mobility aids from home or obtain and provide as needed 20. Consult pharmacy regarding effects of med's affecting mobility, cognition, and alternatives 21. Obtain physician order for PT if risk factors associated with mobility are present 22. Obtain physician order for OT as appropriate 23. Utilize diversional activities 24. Educate patient and patient cash applications representative how to maintain a safe environment during visitationtimes (notify nurse prior to leaving bedside) 25. Consider appropriateness of medical or non-chief medical director 26. Set up voiding schedule as appropriate [...] of progress towards goal: documented in this encounterOhioHealth [facility]12-25-[facility] Hospital course Narrative* Cami Martinez PA-C - 06/22/2024 12:08 PM EST Images from the original note were not included. ED Observation Discharge Summary BRIEF OVERVIEW Admitting Provider: Delfino Harmon DO Discharge Provider: CAMI MARTINEZ PA-C Primary Care Physician: STIVEN DURAN MD [phone] Observation Services End Date and Time: No [...] evaluation treatment. Patient was initially seen in [facility], transferred to [facility], and placed in ED observation for MRI/further evaluation. Patient currently is not having any color changes to her foot. Patient is feeling somewhat better, but continues to declined any significant paintreatment at this time. Patient had CT scan performed at [facility] that showed a bulging disc [...] Scale Eyes 4. Verbal 5. Motor 6. [place] Coma Total 15 Skin: Skin is warm [...] Your Medications These medications were sent to [facility]/pharmacy #[id number] AT CORNER OF [address] [address] gabapentin 300 mg capsule lidocaine 5 % [...] will pursue inpatient stay. documented in this encounterOhioHealth [facility]12-25-2024 Plan of care note * Plan of [...] pt experiencing intermittent numbness/tingling in RLE. WCTM. [facility]12-25-2024 Plan of care note* Plan of Care [...] at the bedside 7. Instruct patient/ patient cash applications representative about use of safety devices 8. Include patient/ patient cash applications representative in decisions related to safety Outcome: Progressing Note: Evaluation of progress towards goal: Pt is free from falls. Bed is in lowest position and brakes are locked. Proper identification is used. Problem: Knowledge Deficit Goal: Patient/patient cash applications representative demonstrates understanding of disease process, treatment [...] be free from fall Description: Interventions: 1. [place] to environment 2. Hourly rounds addressing the [...] non-skid footwear 11. Teach patient and patient cash applications representative to maintain environment for safety and [...] (cane, walker) within reach 19. Request patient cash applications representative bring adaptive equipment/mobility aids from home or obtain and provide as needed 20. Consult pharmacy regarding effects of med's affecting mobility, cognition, and alternatives 21. Obtain physician order for PT if risk factors associated with mobility are present 22. Obtain physician order for OT as appropriate 23. Utilize diversional activities 24. Educate patient and patient cash applications representative how to maintain a safe environment during visitationtimes (notify nurse prior to leaving bedside) 25. Consider appropriateness of medical or non-chief medical director 26. Set up voiding schedule as appropriate (every 2 hours) Outcome: Progressing Note: Evaluation of progress towards goal: Pt educated on Fall Risk . Pt has non-slip socks on, 2 side rails up, up with assist. [facility]12-25-2024 History and physical note* Delfino Harmon DO - 06/22/2024 6:32 AM EST Images from the original note were not included. ED Observation History and Physical Note PROVIDERS: Primary Care Physician: STIVEN DURAN MD [phone] Admitting Provider: Delfino Harmon CARE START TIMES: [...] evaluation treatment. Patient was initially seen in [facility], transferred to [facility], and placed in ED observation for MRI/further evaluation. Patient currently is not having any color changes to her foot. Patient is feeling somewhat better, but continues to declined any significant paintreatment at this time. Patient had CT scan performed at [facility] that showed a bulging disc [...] The case was discussed with the following area development consultant teams. Consulting Providers Provider Service Specialty [...] Code Status Information Code Status Full Code [facility]12-25-2024 History and physical note* Delfino Harmon DO - 06/22/2024 6:32 AM EST Images from the original note were not included. ED Observation History and Physical Note PROVIDERS: Primary Care Physician: STIVEN DURAN MD [phone] Admitting Provider: Delfino Harmon DO CARE START [...] evaluation treatment. Patient was initially seen in [facility], transferred to [facility], and placed in ED observation for MRI/further evaluation. Patient currently is not having any color changes to her foot. Patient is feeling somewhat better, but continues to declined any significant paintreatment at this time. Patient had CT scan performed at [facility] that showed a bulging disc [...] The case was discussed with the following area development consultant teams. Consulting Providers Provider Service Specialty [...] Status Full Code documented in this encounterOhioHealth Hardin Memorial HospitalPioneer Surgical Technology [facility] [id number] Plan of care note * Plan of Care - Valerie Dee RN - 06/22/2024 6:14 AM EST Problem: Pain Goal: Patient goal is pain score less than 4, able to rest, and participant in treatment plan as appropriate Description: INTERVENTIONS: 1. Encourage patient or legal cash applications representative to report early pain and ask [...] per policy 9. Teach patient or legal cash applications representative interventions for comforting Outcome: Progressing Note: [...] at the bedside 7. Instruct patient/ patient cash applications representative about use of safety devices 8. Include patient/ patient cash applications representative in decisions related to safety Outcome: [...] hygiene technique. 7. Identify and instruct patient/patient cash applications representative in use of appropriate isolation precautionsfor identified infection/symptoms. 8. Provide and discuss with patient/patient cash applications representative on educational MDRO sheet. 9. Encourage and monitor nutritional status daily and consult svp programmatic tv if indicated. 10. Implement neutropenic guidelines as needed. Outcome: Progressing Note: Evaluation of progress towards goal: Problem: Moderate - High Risk Fall Score Description: [place] Fall Score of =/> 25 or indicated by [facility] Rehab Assessment Goal: Patient should be free from fall Description: Interventions: 1. [place] to environment 2. Hourly rounds addressing the [...] non-skid footwear 11. Teach patient and patient cash applications representative to maintain environment for safety and [...] (cane, walker) within reach 19. Request patient cash applications representative bring adaptive equipment/mobility aids from home or obtain and provide as needed 20. Consult pharmacy regarding effects of med's affecting mobility, cognition, and alternatives 21. Obtain physician order for PT if risk factors associated with mobility are present 22. Obtain physician order for OT as appropriate 23. Utilize diversional activities 24. Educate patient and patient cash applications representative how to maintain a safe environment during visitationtimes (notify nurse prior to leaving bedside) 25. Consider appropriateness of medical or non-chief medical director 26. Set up voiding schedule as appropriate [...] Progressing Note: Evaluation of progress towards goal: [facility] [id number] Emergency department Triage note* Fabián Matthews RN - 06/22/2024 12:36 AM EST Patient presented to [place] ER due to losing muscle mass in her Rt buttock and RLE turning purple along with shaking. [facility] [id number] Emergency department Note* Fabián Matthews RN - 06/22/2024 12:36 AM EST Patient presented to [place] ER due to losing muscle mass in her Rt buttock and RLE turning purple along with shaking. documented in this encounterOhioHealth Arthur [facility]02-08-2022 NoteChief Complaint consultation for RUQ pain HPI Staff 31 year old female presents on consultation from Dr. Duran for RUQ/epigastric pain with heaviness feeling in RUQ. Reports pain since March. Intermittent nausea and vomiting. Food triggers include ground beef, broccoli, spicy foods and alcohol. RUQ US completed 05/01/21-unremarkable. CT ABD [id number]/9/21- unremarkable. Levsin QID, not helpful. Taking Pantoprazole [...] with adapter, 2 puf (more content not included)...[facility] CenterComment on above:Result Comment: Electronically Signed By: POPPY VALDEZ, Fred Jain\Date and Time Signed: 08/06/21 15:12 ESTEvaluation note* Diagnosis Back pain- Primary Unspecified backache Back pain Unspecified backache Atrophy of muscle of right thigh Muscle wasting Muscular wasting and disuse atrophy, not elsewhere classified Trouble walking Difficulty in walking [facility]* Diagnosis Back pain Unspecified backache Atrophy of muscle of right thigh documented in this encounter [facility]* Diagnosis Neurogenic claudication- Primary Spinal stenosis of lumbar region documented in this encounter [facility]* Diagnosis Complaints of weakness of lower extremity- Primary documented [facility]* Diagnosis Failed back surgical syndrome- Primary [...] Everywhere. * Upper Back Pain Discharge Instructions ([place] Islander) documented in this encounterProTrinity Health System [facility] SystemInstructionsNot on file documented in this encounterProTaylor Hardin Secure Medical Facility [employer] SystemInstructionsNot on file documented in this encounterProMercy Health Fairfield HospitalReason for visit Narrative* Auth/CertSpecialtyDiagnoses / ProceduresReferred By ContactReferred To Contact Diagnoses Status post lumbar spine operation Tammie Steele MD [address] [place] [id number] Phone: tel: fax: [facility] [address] [place] [address] Referral IDStatusReasonStart DateExpiration DateVisits RequestedVisits [id number] [facility] for visit Narrative* Diagnostic X-Ray (Routine) - ClosedSpecialtyDiagnoses / ProceduresReferred By ContactReferred To Contact Radiology Diagnoses Failed back surgical syndrome Procedures CT NEURO IMAGE IMPORT(ERIC) DOWNLOAD POWERSHARE IMAGES TO Eloisa Briceño MD [address] [place] [phone] Phone: tel: fax: [facility] [address] [place], [place] [address] Phone: tel: Referral IDStatusReasonStart DateExpiration DateVisits RequestedVisits [id number]/31/20257/ [facility] for visit Narrative* MRI/CAT Scan (Urgent) - Pending Review SpecialtyDiagnoses / ProceduresReferred By ContactReferred To ContactRadiology Diagnoses Failed back surgical syndrome Procedures MR L-SPINE W/O Eloisa Beasley MD [address] [place] [address] Phone: tel: fax: [facility] [address] [place] [address] Phone: tel: Referral IDStatusReasonStart DateExpiration DateVisits RequestedVisits [id number] Review/ [facility] for visit Narrative* Service Level Authorization (Routine) - ClosedSpecialtyDiagnoses / ProceduresReferred By ContactReferred To Contact Anesthesiology Diagnoses Failed back surgical syndrome Eloisa Beasley MD [address] [place] [address] Phone: tel: fax: [facility] PRE ADMISSION TESTING [address] [place] [address] Phone: tel: Referral IDStatusReasonStart DateExpiration DateVisits RequestedVisits [id number]/24/20259/ [facility] Summary Purpose Family History No Family History Records FoundNo Family History Records FoundNo Family History Records FoundNo Family History Records FoundNo Family History Records FoundNo Family History Records FoundNo Family History Records Found Advance Directives No Advanced Directives Records Found Date ActivatedDate CercfgyjssnVaozqlkl87/25/2024 3:03 AMDate ActivatedDate UiluounvchjHzzibejq75/25/2024 3:03 AM06/22/2024 3:37 PMDate ActivatedDate InactivatedComments12/03/2024 3:03 AM Additional Source Comments INFORMATION SOURCE (unrecogn ized section and content) DATE CREATED AUTHOR 09/15/2021 [facility] DATE CREATED AUTHOR AUTHOR'S ORGANIZ ATION 08/26/2022 [facility] DATE CREATED AUTHOR AUTHOR'S ORGANIZ ATION 06/23/2024 [facility] DATE CREATED AUTHOR AUTHOR'S ORGANIZ ATION 08/10/2024 [facility] DATE CREATED AUTHOR AUTHOR'S ORGANIZ ATION 12/05/2024 [facility] DATE CREATED AUTHOR AUTHOR'S ORGANIZ ATION 12/30/2024 [facility] DATE CREATED AUTHOR AUTHOR'S ORGANIZ ATION 05/10/2025 [facility] Reason for Visit (unrecogniz ed section and content) ReasonCommentsBack PainReasonCommentsLeg PainNew patient referral- pt complains of pain in back, bilateral legs and hips, states is worse on theright. Says right foot will turn purple at times.SpecialtyDiagnoses / ProceduresReferred By ContactReferred To ContactVascular Surgery Diagnoses Back pain Atrophy of muscle of right thigh Delfino Harmon, DO [address] [place] [address] Phone: tel: fax: [facility] [address] [place] [address] Phone: tel:[phone] fax: Referral IDStatusReasonStart DateExpiration DateVisits RequestedVisits [id number] Review Specialty Services Required [id number]-qgCiefkop done- pt c/o cramping and pain in both legs, right leg is worse- states hands, feet,and arms are often cold and turns purple ReasonCommentsJoint PainNumbness/tinglingNew patient, to establish relationshipSpecialtyDiagnoses / ProceduresReferred By ContactReferred To Contact Diagnoses Lumbar radiculopathy Procedures LVL 4 NEW PT, MODERATE MDM, MINIMUM OF 45 MINUTES LVL 4 EST PT, MODERATE MDM, MINIMUM OF 30 MINUTES Stiven Duran MD [address] [place] [address] Phone: tel: fax: Referral IDStaalbuquerque indian [facility] clinicDeborahM[facility] DateExpiration DateVisits RequestedVisits [id number] Consultation-[facility] [id number] PainNumbness/tinglingNew patient, to establish relationshipSpecialtyDiagnoses / ProceduresReferred By ContactReferred To Contact Diagnoses Lumbar radiculopathy Procedures LVL 4 NEW PT, MODERATE MDM, MINIMUM OF 45 MINUTES LVL 4 EST PT, MODERATE MDM, MINIMUM OF 30 MINUTES Stiven Duran MD [address] [place] [address] Phone: tel: fax: Referral IDStateDborahMountain View Hospital DateExpiration DateVisits RequestedVisits [id number] Consultation-[facility] [id number] Pain Scheduled Active and Recently Administ ered [...] Date Stiven Duran MD PCP - GeneralFamily Phqdsulz22/15/24Team MemberRelationshipSpecialtyStart Date End Date Stiven Duran MD PCP - Generalmily Bdbwqjkr47/15/24Team MemberRelationshipSpecialtyStart Date End Date Stiven Duran MD PCP - Generalmily Tozqqpst49/15/24Team MemberRelationshipSpecialtyStart Date End Date Stiven Duran MD [address] [place] [address] PCP - GeneralFamily Medicine12/02/24 MemberRelationshipSpecialtyStart DateEnd Date Eloisa Beasley MD [address] [place] [address] PhysicianOrthopaedic Surgery01/28/25Team MemberRelationshipSpecialtyStart DateEnd Date Eloisa Beasley MD [address] [place] [phone] PhysicianOrthopaedic Surgery01/28/25Team MemberRelationshipSpecialtyStart DateEnd Date Eloisa Beasley MD [address] [place] [address] PhysicianOrthopaedic Surgery01/28/25Team MemberRelationshipSpecialtyStart DateEnd Date Eloisa Beasley MD [address] [place] [address] PhysicianOrthopaedic Surgery01/28/25Team MemberRelationshipSpecialtyStart DateEnd Date Eloisa Beasley MD [address] [place] [address] PhysicianOrthopaedic Surgery01/28/25Team MemberRelationshipSpecialtyStart DateEnd Date Eloisa Beasley MD [address] [place] [address] PhysicianOrthopaedic Surgery01/28/25Team MemberRelationshipSpecialtyStart DateEnd Date Eloisa Beasley MD [address] [place] [address] PhysicianOrthopaedic Surgery01/28/25Team MemberRelationshipSpecialtyStart DateEnd Date Eloisa Beasley MD [address] [place] [address] PhysicianOrthopaedic Surgery01/28/25Team MemberRelationshipSpecialtyStart DateEnd Date Eloisa Beasley MD [address] [place] [phone] PhysicianOrthopaedic Surgery01/28/25 FOR RECORDS PERTAINING TO PATIENTS [...] ON THE PRIMARY CLINICAL RECORDS. [facility]. provides no warranty or guarantee of the accuracy or completeness of information in this document.
--- OUTSIDE RECORDS SUMMARY | 2025-05-30 19:38 | XMS_ITS | Clinical Summary ---
Author Organization [employer] Address [id number] [address] [place] [address] Care Team Providers Care Program Counselor Name Role Phone Stiven Greenberg MD Primary Care Provider [phone] Allergies Active AllergyReactionsCriticalityNoted DateCommentsHydrocodone-Acetaminophen 05/10/2021 Medications MedicationSigDispense [...] tablet 06/22/2024ctive Active Problems ProblemNoted DateDiagnosed DateNeurogenic knkurucwlkpk78/16/2025 Assessment & Plan (07/14/2024 1:49 PM EST): No evidence of significant peripheral arterial disease. Recommend evaluation and management by neuro spine. She is planned to have procedure. Back pain06/22/2024Muscle qnexyxo9606/22/2024Trouble vojyocz2606/22/2024 Social History Tobacco UseTypesPacks/DayYears UsedDateSmoking Tobacco: FormerCigarettes Smokeless Tobacco: Never Tobacco Cessation:Counseling Given: Not Answered Alcohol UseStandard Drinks/WeekCommentsNever0 (1 standard drink = 0.6 oz pure alcohol)[facility] UtilitiesAnswerDate RecordedIn the past 12 months has the [employer], Actual Experience, oil, or water [employer] threatened to shut off services in your home?No 06/22/2024HQ-2AnswerDate RecordedTotal Fomhd18807/10/2020RAPARE - Transportation AnswerDate RecordedIn the past 12 [...] as a part of a household?No 06/22/2024hildcareAnswerDate RenwaehxIwaeqpdnuVefncuk95/12/2019EmploymentAnswer Date YmjlnbsfKgxblsdaijTsnnxdk67/12/2019Hunger ScreeningAnswerDate Recorded Within the past 12 months we worried whether our food would run out before we got money to buy more.Never True06/22/2024Within the past 12 months the food we bought just didn't last and we didn't have money to get more.Never True 4Purpose - LifeAnswerDate RecordedPurpose and direction in lifeUnknown 1CommentsNoSex and Gender InformationValueDate RecordedSex Assigned at BirthNot on fileLegal YxjXpmzhc46/06/2015 11:51 AM EDTGender IdentityNot on fileSexual OrientationNot on file Last Filed Vital Signs Vital SignReadingTime TakenCommentsBlood Evuwfofw005/7806/27/2024 2:53 PM EST Pnewb599406/27/2024 2:53 PM IUIWgtydypktfz17.7 ??C (98.1 ??F)06/22/2024 11:43 AM ESTRespiratory Iwbv959908/23/2023 11:43 AM ESTOxygen Wbhrbmvzkp20%06/22/2024 11:43 AM ESTInhaled Oxygen Concentration--Wnchti40.9 kg (121 lb)06/27/2024 2:53 PM EST Jlloxs116.1 cm (5' 5 )06/22/2024 4:13 AM ESTBody Mass Index20.14108/23/2023 4:13 AM EST Plan of Treatment Health MaintenanceDue DateLast DoneCommentsDepression Cdzctloin87/26/2003Pap Smear01/22/2012Influenza Frxwmui38/01/2025Adult BMI Ejmjvznod20/30/2025 06/27/2024Tobacco Rnnspuuqv624DTaP,Tdap and Td Vaccines (8 - Td or Tdap)6012/19/2015, 01/19/2014, 10/18/2012, Additional history exists Medical Devices Not on file Insurance Advance Directives * Full Code (Latest Code Status on File) Date ActivatedDate HwxxricyvthPrbchwpy40/25/2024 3:03 AM06/22/2024 3:37 PM Care Teams Team MemberRelationshipSpecialtyStart DateEnd Date Stiven Greenberg MD PCP - GeneralFamily Uhosssoz90/15/24
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
--- OUTSIDE RECORDS SUMMARY | 2025-05-30 19:39 | XMS_ITS | Clinical Summary ---
Author Organization [facility] Address [address] [facility] [address] Care Team Providers Care [employer]el Lube Tech Name Role Phone Pj Beasley MD Unavailable [phone] Heather Lorenz APRN-LICHA Unavailable [phone] Source Comments The following information is NOT included in Care Everywhere downloads:Psychiatric notes, ECG results, Cardiac Rehab notes, Pulmonary Function notes, data from [facility] (includes but not limited toPregnancy data,audiograms, eye exams, pre-surgical evaluation notes, well-child exam data).[facility] Allergies Active AllergyReactionsCriticalityNoted DateCommentsHydrocodone-Acetaminophen Nausea,OxmxnglhPtwi44/12/2021 Medications MedicationSigDispense QuantityRefillsLast FilledStart DateEnd DateStatus cyclobenzaprine [...] days. 84 Tablet 05/12/2025 2:41 PM EST5Active Additional Information Patient not taking.Reported on 05/23/2025 oxyCODONE-acetaminophen (PERCOCET) 5-325 mg per tablet Indications:Failed back surgical syndromeTake 1 Tablet by mouth every 6 hours as needed for Pain for up to 21 days. 84 Tablet /5Active metoprolol (TOPROL-XL) 50 mg XL tablet Discontinued Active Problems ProblemNoted DateDiagnosed DateGastroesophageal reflux disease with esophagitis 05/02/20259409Ihbtzgaudltx80/04/2025Liver mass05/02/2025Failed back surgical /24/8200Oblxxe66/06/2025alculus of ppddaw9812/02/2024Migraine headache 10/31/2024Posttraumatic stress /21/0658Jaczry33/23/2024 Encounters DateTypeDepartmentCare YgsnNkbkbssaipa04/01/2025Nurse Triage [facility] Line [address] [place] [phone] Lavinia Mancia RN Back symptoms/mwnqsruxcl62/25/2025 11:00 AM ESTOffice Visit [facility] Orthopedic Spine [address] [place] [phone] Pj Beasley MD Failed back surgical syndrome (Primary Dx)05/10/2025 7:30 AM EST - 05/10/2025 11:03 AM ESTSurgery [facility] Main OR [address] [place] [address]65 Pj Beasley MD REMOVAL POSTERIOR SPINAL INSTRUMENTATION, L5-S1 POSTERIOR SPINAL FUSION 05/10/2025 7:27 AM EST - 05/10/2025 11:59 PM ESTHospital [facility]counter [facility] [address] [place] [phone] Pj Beasley MD Discharge Disposition: HOV Uaztzeura42/12/2025 7:21 AM ESTAnesthesia Event [facility] Main OR [address] [place] [address] [phone] Campos Waller MD Guay, Daniel, MD 05/10/2025 5:50 AM EST - 05/12/2025 3:16 PM ESTHospital Encounter [facility] [address] [place] [address] 42346 Pj Beasley MD Failed back surgical syndrome (Primary Dx) Discharge Disposition: Discharge to Home05/03/2025E-Consult [facility] Cardiology [address] [place] [address] [phone] Inder Gregory MD 05/02/2025 1:30 PM ESTOffice Visit [facility] Pre-Admission Testing [address] [place] [phone] Heather Lorenz APRN-LICHA Preop testing (Primary Dx); Body mass index (BMI) 22.0-22.9, adult05/02/2025 11:45 AM ESTOffice Visit [facility] Orth[facility]ine [address] [place] [address] [phone] Pj Beasley MD Failed back surgical syndrome (Primary Dx)03/22/2025Prep for Surgery [facility] Neurosurgery [address] [place] [address] 76017 Pj Beasley MD 03/16/2025 11:30 AM EDTOffice Visit [facility]ine [address] [place] [address] 76102 Pj Beasley MD Failed back surgical syndrome (Primary Dx)03/08/2025 7:59 PM EDT - 03/08/2025 11:59 PM EDTHospital Encounter [facility] Radiology [address] [place] [address] [phone] Failed back surgical syndrome Discharge Disposition: HOV Ahvzcehfh47/10/2025Travelfrom Last 3 Months Immunizations ImmunizationAdministration DatesNext DueMMR, Mjxxwin-Wxwhv-Oegdgmc (CVX=03) 04/04/2004Td (adult), 5 Lf tetanus toxoid, preservative free, adsorbed (ZMN=536) 09/16/2012Tdap (KGD=183)12/19/2015,01/19/2014,10/18/2012 Social History Tobacco UseTypesPacks/DayYears UsedDateSmoking Tobacco: Every DayCigarettes Smokeless Tobacco: Never Tobacco Cessation:Counseling Given: Yes Comments:vapes Alcohol UseStandard Drinks/WeekCommentsNot Currently0 (1 standard drink = 0.6 oz pure alcohol)[facility] UtilitiesAnswerDate RecordedIn the past 12 months has the [employer], gas, oil, or water [employer] threatened to shut off services in your [...] InformationValueDate RecordedSex Assigned at BirthNot on fileLegal QzjFxcqii60/02/2025 9:50 AM EDTGender IdentityNot on fileSexual OrientationNot on file Last Filed Vital Signs Vital SignReadingTime TakenCommentsBlood Lgjoirir037/7505/12/2025 6:00 AM EST Xrmyo636705/12/2025 9:28 AM QPPAcmodnzwvzm28.8 ??C (98.2 ??F)05/12/2025 6:00 AM ESTRespiratory Ecvu712807/12/2024 9:28 AM ESTOxygen Ugnmrjjkmm02%05/12/2025 9:28 AM ESTInhaled Oxygen Concentration--Npicyj05.1 kg (117 lb)05/10/2025 11:50 AM LXYBshjfq704.4 cm (5')05/10/2025 11:50 AM ESTBody Mass Index22.8505/10/2025 11:50 AM EST Plan of Treatment DateTypeDepartmentCare Team (Latest Contact Info)Uexujxivbtq49/22/2026 11:15 AM ESTOffice Visit [facility] [address] [place], [place] [phone] Pj Beasley MD [address] [place] [address] Health MaintenanceDue DateLast DoneCommentsHIV Test2006Hepatitis C Pybknxci40/26/2009Hepatitis A (HAV) Vaccine (optional start 19+ years)2010 Hepatitis B (HBV) Vaccine (1 of 3 - 19+ 3-dose series)2010Pneumococcal Vaccine(s) (1 of 2 - PCV)2010Pap Smear01/22/2012HPV Vaccine (optional start 27-45 years)2018COVID-19 Vaccine (1 - season)2025 Influenza Vaccine (#1)2025Tetanus (Td or Tdap) Tkbmfxn5612/18/2025 12/19/2015, 01/19/2014, 10/18/2012, Additional history existsBasic Metabolic Panel/09/2024, 12/04/2024, 12/04/2024, Additional history exists Shingles (RZV) Vaccine (1 of 2)2041Tdap OdishmcQghnshokf96/22/2016, 01/19/2014, 10/18/2012MammographyDiscontinued Medical Devices ImplantedTypeAreaManufacturerDevice IdentifierShelf Expiration DateModel / Serial / LotCap Threaded Locking Creo Ea1 1119.0010 - [id number] Implanted:Qty: 4 on 05/10/2025 by Pj Beasley MD at INPATIENT DEPARTMENTSScrewN/A: Spine Multi YmltsXaqeeh2399.0010 / / TRAYScrew Creo Thd 7.5x40mm Ea1 5146.1742 - [id number] Implanted:Qty: 2 on 05/10/2025 by Pj Beasley MD at INPATIENT DEPARTMENTSScrewN/A: Spine Multi RvmpoOeevad2425.1742 / / TRAYScrew Creo Thd 7.5x45mm Ea1 5146.1747 - [id number] Implanted:Qty: 2 on 05/10/2025 by Pj Beasley MD at INPATIENT DEPARTMENTSScrewN/A: Spine Multi NkaqhKjxgnc7921.1747 / / TRAYRod 5.5 X 35mm Curved Brodnax Ea1 7119.7035 - [id number] Implanted:Qty: 2 on 05/10/2025 by Pj Beasley MD at INPATIENT DEPARTMENTSSpinal ImplantsN/A: Spine Multi IepkmHcvlco8809.7035 / / TRAYPutty Bn Grft Ossifuse 5cc Ea1 8263.0305s - [id number] Implanted:Qty: 1 on 05/10/2025 by Pj Beasley MD at INPATIENT DEPARTMENTSSpinal ImplantsN/A: Spine Multi OuibvTfvavo68/22/63278516.0305S / / [id number] Procedures Procedure NamePriorityDate/TimeAssociated DiagnosisCommentsXR L-SPINE STANDING AP+LAT 2 PGRESWKQS16/14/2025 8:10 AM EST XR FLUORO SUPPORT ONLY IN SURGERY (ERIC)STAT107/10/2024 9:51 AM ESTLAMINECTOMY AND FUSION, POSTERIOR, THORACIC LUMBARRoutine jrnvlvnbu71/12/2025 7:05 AM EST Failed back surgical syndrome Case Notes 03/22 LMOM URINE HCG-IN QVDPVHOodbfft51/12/2025 6:26 AM EST RED BLOOD CELL UXVTPXCBBNyurhtg24/11/2025 11:39 AM EST RED BLOOD CELL UNIT RUUCLASthocnp50/11/2025 11:39 AM EST RED BLOOD CELL UNIT XMRRZNNqvxiwn61/11/2025 11:39 AM EST CONFIRMATION ABO/AJVokhjby09/04/2025 1:43 PM EST Preop testing CBC WITH GKFPOIFUYUOGElbawyq86/04/2025 1:31 PM EST Preop testing TYPE AND TXLVUOSziuhaz49/04/2025 1:31 PM EST Preop testing PROTHROMBIN TIME AND MDLDatmxes18/04/2025 1:31 PM EST Preop testing PARTIAL THROMBOPLASTIN QWGGTkalevh49/04/2025 1:31 PM EST Preop testing HC HEPATIC FUNCTION RYWCQTtutgtu48/04/2025 1:31 PM EST Preop testing COMPLETE BLOOD COUNT W/CACAVxvgqrz75/04/2025 1:31 PM EST Preop testing BASIC METABOLIC KWQJVQyjavla52/04/2025 1:31 PM EST Preop testing MR T-SPINE [...] obvious complication. MACRO: None Procedure Note Fred Muleln MD - 05/12/2025 EXAMINATION: XR L-SPINE STANDING [...] VolumeCollection TimeReceived Time Narrative Authorizing ProviderResult TypeResult StatusjP [place] DIAGNOSTIC X-RAYFinal Result * URINE HCG-IN OFFICE (05/10/2025 6:26 AM EST)ComponentValueRef RangeTest Method Analysis TimePerformed AtPathologist SignatureUrine Beta hCGNegativeNegative Positive Internal ControlPositivePositiveNegative Internal ControlNegative NegativeSpecimen (Source)Anatomical Location / LateralityCollection Method / VolumeCollection TimeReceived TimeUrineURINE SPECIMEN / Gdtgdvu5205/10/2025 6:26 AM EST Narrative Authorizing ProviderResult TypeResult StatusPj [place] BACK OFFICE LABSFinal Result * RED BLOOD CELL COMPONENT (05/09/2025 11:39 AM EST)ComponentValueRef RangeTest MethodAnalysis TimePerformed AtPathologist SignatureBB Order ItemProduct status info to followMESCALERO SERVICE UNIT PATHOLOGY LABORATORYSpecimen (Source)Anatomical Location / LateralityCollection Method / VolumeCollection TimeReceived Time BLOOD SPECIMEN / Unknown Narrative Authorizing ProviderResult TypeResult StatusPrice [place] BLOOD BANKFinal ResultPerforming OrganizationAddressCity/State/ZIP CodePhone Number [facility] [address] [place], [place] [phone] * RED BLOOD CELL UNIT STATUS (05/09/2025 11:39 AM EST)ComponentValueRef Range Test MethodAnalysis TimePerformed AtPathologist SignatureBlood Product DescriptionRed Blood CellsMESCALERO SERVICE UNIT PATHOLOGY LABORATORYBlood Product [id number] [facility] PATHOLOGY LABORATORYStatusCanceSalem Hospital PATHOLOGY LABORATORYBlood Product Unit [id number] PATHOLOGY LABORATORYBlood Product Unit Hnlc4677MLC PATHOLOGY LABORATORYComment:A PosCrossmatch InterpretationCompatible (E)[facility] PATHOLOGY LABORATORYSpecimen (Source)Anatomical Location / Laterality Collection Method / VolumeCollection TimeReceived Time05/09/2025 11:39 AM EST Narrative Authorizing ProviderResult TypeResult StatusPrice Felton MD BLOOD BANKEdited Result - FinalPerforming OrganizationAddressCity/State/ZIP CodePhone Number [facility] [address] [place] [phone] * RED BLOOD CELL UNIT STATUS (05/09/2025 11:39 AM EST)ComponentValueRef Range Test MethodAnalysis TimePerformed AtPathologist SignatureBlood Product DescriptionRed Blood CellsMESCALERO SERVICE UNIT PATHOLOGY LABORATORYBlood Product HajaB4943P44 [facility] PATHOLOGY LABORATORYStatusCanceSalem Hospital PATHOLOGY LABORATORYBlood Product Unit [id number] PATHOLOGY LABORATORYBlood Product Unit Cfir0051RXP PATHOLOGY LABORATORYComment:A PosCrossmatch InterpretationCompatible (E)[facility] PATHOLOGY LABORATORYSpecimen (Source)Anatomical Location / Laterality Collection Method / VolumeCollection TimeReceived Time05/09/2025 11:39 AM EST Narrative Authorizing ProviderResult TypeResult StatusPrice Felton [facility] BLOOD BANKEdited Result - FinalPerforming OrganizationAddressCity/State/ZIP CodePhone Number [facility] [address] [place] [address] * CONFIRMATION ABO/RH (05/02/2025 1:43 PM EST)ComponentValueRef RangeTest Method Analysis TimePerformed AtPathologist SignatureABO Rh TypeA Qlidhraz54/04/2025 4:13 PM [facility] PATHOLOGY LABORATORYSpecimen Expiration [id number] 05/02/2025 4:13 PM [facility] PATHOLOGY LABORATORYABO Rh/Libby/TXRX HistoryA Clrlzuhj69/04/2025 4:13 PM [facility] PATHOLOGY LABORATORYSpecimen (Source) Anatomical Location / LateralityCollection Method / VolumeCollection Time Received TimeBloodBLOOD SPECIMEN / UnknownVenipuncture / Hjayzuv7605/02/2025 1:43 PM EST05/02/2025 3:32 PM EST Narrative Authorizing ProviderResult TypeResult StatusHeather CHRISTIANSON BLOOD BANKFinal ResultPerforming OrganizationAddressCity/State/ZIP CodePhone Number [facility] [address] [place] [address] * (ABNORMAL) CBC WITH DIFFERENTIAL (05/02/2025 1:31 PM EST)ComponentValueRef RangeTest MethodAnalysis TimePerformed AtPathologist SignatureWBC7.14.5 - 11.5 K/uL05/02/2025 3:49 PM [facility] PATHOLOGY LABORATORYRBC4.414.00 - 5.20 M/uL 05/02/2025 3:49 PM [facility] DQYUGSVLRSCeadmdndeb08.3(L)12.0 - 15.0 g/dL05/02/2025 3:49 PM [facility] ZMFSCQOYGYIoqvftzprn89.4(L)36.0 - 46.0 %05/02/2025 3:49 PM [facility] FVVTLJDTPHZKD72(L)80 - 100 fL05/02/2025 3:49 PM [facility] PLUCYZVCLUPNI98.5(L)26.0 - 34.0 pg05/02/2025 3:49 PM [facility] HPMHNRRZMEPRWA79.932.0 - 35.9 g/dL05/02/2025 3:49 PM [facility] DRCXMNQSCZZfmwlyti785944 - 400 K/uL05/02/2025 3:49 PM [facility] PATHOLOGY LABORATORYRDW-CV16.9(H)11.5 - 14.5 %05/02/2025 3:49 PM [facility] TRYRZFBNHHFMT82.7(H)7.5 - 11.2 fL05/02/2025 3:49 PM [facility] SCOYIRTXWAAetrfohcxui03.831.0 - 76.0 %05/02/2025 3:49 PM [facility] PATHOLOGY LABORATORYNeutrophil #4.271.50 - 8.00 K/uL05/02/2025 3:49 PM [facility] PXZUURGWAMEmkkxoqbxvz46.624.0 - 44.0 %05/02/2025 3:49 PM [facility] PATHOLOGY LABORATORYLymphocytes #2.181.00 - 4.80 K/uL05/02/2025 3:49 PM [facility] PATHOLOGY LABORATORYMonocytes7.12.0 - 11.0 %05/02/2025 3:49 PM ESTMESCALERO SERVICE UNIT PATHOLOGY LABORATORYMonocyte #0.510.20 - 1.00 K/uL05/02/2025 3:49 PM [facility] PATHOLOGY LABORATORYEosinophil1.70.1 - 4.0 %05/02/2025 3:49 PM [facility] PATHOLOGY LABORATORYEosinophil #0.120.00 - 0.70 K/uL05/02/2025 3:49 PM [facility] PATHOLOGY LABORATORYBasophils0.8<=1.9 %05/02/2025 3:49 PM [facility] LABOR[facility] Basophil #0.060.00 - 0.20 K/uL05/02/2025 3:49 PM [facility] Specimen (Source)Anatomical Location / LateralityCollection Method / Volume Collection TimeReceived TimeBloodBLOOD SPECIMEN / UnknownVenipuncture / Tfwrgiz6805/02/2025 1:31 PM EST05/02/2025 3:43 PM EST Narrative Authorizing ProviderResult TypeResult StatusHeather Byerstrevin CLINICAL SCIENTIST-CNPEC LAB ORDER ONLYFinal ResultPerforming OrganizationAddressCity/State/ZIP CodePhone Number [facility] [address], [place] * (ABNORMAL) HEPATIC FUNCTION PANEL (05/02/2025 1:31 PM EST)ComponentValueRef RangeTest MethodAnalysis TimePerformed AtPathologist SignatureAlbumin4.53.5 - 5.7 g/dL05/02/2025 4:14 PM [facility] PATHOLOGY LABORATORYBilirubin, Direct<0.05 0.03 - 0.18 mg/dL05/02/2025 4:14 PM [facility] PATHOLOGY LABORATORYBilirubin, Total0.2(L)0.3 - 1.0 mg/dL05/02/2025 4:14 PM [facility] Comment:Note updated reference range.Alkaline Pyzszypeakm3500 - 104 IU/L 05/02/2025 4:14 PM [facility] PATHOLOGY LABORATORYALT (SGPT)87 - 52 IU/L107/02/2024 4:14 PM [facility] PATHOLOGY LABORATORYAST (SGOT)1413 - 39 IU/L107/02/2024 4:14 PM [facility] PATHOLOGY LABORATORYProtein, Total7.06.1 - 7.9 g/dL05/02/2025 4:14 PM [facility] PATHOLOGY LABORATORYComment:Note updated reference range.Specimen (Source)Anatomical Location / LateralityCollection Method / VolumeCollection TimeReceived TimeBloodBLOOD SPECIMEN / UnknownVenipuncture / Hgylutp6205/02/2025 1:31 PM EST05/02/2025 3:43 PM EST Narrative Authorizing ProviderResult TypeResult StatusHeather Lorenz CLINICAL SCIENTIST-CNP98 GENERAL LABFinal ResultPerforming OrganizationAddressCity/State/ZIP CodePhone Number [facility] [address] [place] [phone] * BASIC METABOLIC PANEL (05/02/2025 1:31 PM EST)ComponentValueRef RangeTest MethodAnalysis TimePerformed AtPathologist QvbtsqjzsUffllrr0773 - 109 mg/dL 05/02/2025 4:14 PM [facility] PATH[facility] VVCSCWUTWJCobnmr818965 - 145 mmol/L 05/02/2025 4:14 PM [facility] PATHOLOGY LABORATORYPotassium4.53.5 - 5.0 mmol/L 05/02/2025 4:14 PM [facility] PATHOLOGY LABORATORYCarbon Gzhauxy7179 - 31 mmol/L 05/02/2025 4:14 PM [facility] PATH[facility] QDQWSYFROOVpjvdybp95699 - 107 mmol/L 05/02/2025 4:14 PM [facility] PATHOLOGY LABORATORYBlood Urea Zmjalrnx534 - 25 mg/dL05/02/2025 4:14 PM [facility] PATHOLOGY LABORATORYCreatinine0.750.60 - 1.20 mg/dL05/02/2025 4:14 PM [facility] PATHOLOGY LABORATORYCalcium9.48.6 - 10.3 mg/dL 05/02/2025 4:14 PM [facility] PATHOLOGY LABORATORYAnion Olp5677 - 4:14 PM [facility] PATHOLOGY LABORATORYEstimated GFR (CKD-EPI)107>=60 mL/min/1.08dhp6407/02/2024 4:14 PM [facility] PATHOLOGY LABORATORYComment: 2020 CKD EPI Equation using [...] Diseases 2021;79(2):268-88.e1. 2. N Engl J Med 2021 Vol. 385 Issue 19 Pages 5980-6607 Specimen (Source)Anatomical Location / LateralityCollection Method / Volume Collection TimeReceived TimeBloodBLOOD SPECIMEN / UnknownVenipuncture / Unknown 05/02/2025 1:31 PM EST05/02/2025 3:43 PM EST Narrative Authorizing ProviderResult TypeResult StatusHeather Lorenz CLINICAL SCIENTIST-CNP98 GENERAL LABFinal ResultPerforming OrganizationAddressCity/State/ZIP CodePhone Number [facility] [address] [place] [address] * TYPE AND SCREEN (05/02/2025 1:31 PM EST)ComponentValueRef RangeTest Method Analysis TimePerformed AtPathologist SignatureABO Rh TypeA Rpjjsmpj77/04/2025 4:15 PM [facility]STMESCAL[facility] PATHOLOGY LABORATORYAb Screen HrwpbiNlqvrthj83/04/2025 4:15 PM [facility] PATHOLOGY LABORATORYSpecimen Expiration [id number]/04/2025 4:15 PM [facility] PATHOLOGY LABORATORYABO Rh/Libby/TXRX HistoryNo Previous Results 05/02/2025 4:15 PM [facility] PATHOLOGY LABORATORYComment:Patient does not require a 2nd sample drawn prior to surgery date of 05/10/25. Specimen meets Blood Bank's Pre-Surgical Protocol and is valid within 30 days from date of collection but will atmidnight on the day of approved Surgery.Specimen (Source)Anatomical Location / LateralityCollection Method / VolumeCollection TimeReceived TimeBloodBLOOD SPECIMEN / UnknownVenipuncture / Ukctnno3805/02/2025 1:31 PM EST05/02/2025 3:32 PM EST Narrative Authorizing ProviderResult TypeResult StatusHeather Lorenz CLINICAL SCIENTIST-CNPEC BLOOD BANKFinal ResultPerforming OrganizationAddressCity/State/ZIP CodePhone Number [facility] [address] [place] [address] * PROTHROMBIN TIME AND INR (05/02/2025 1:31 PM EST)ComponentValueRef RangeTest MethodAnalysis TimePerformed AtPathologist YjvqcvhavBimnooc08.49.7 - 12.9 sec 05/02/2025 4:22 PM [facility] PATHOLOGY LABORATORYINR0.930.90 - 1.10107/02/2024 4:22 PM [facility] PATH[facility]Y LABORATORYSpecimen (Source)Anatomical Location / LateralityCollection Method / VolumeCollection TimeReceived TimeBloodBLOOD SPECIMEN / UnknownVenipuncture / Zneuphf8405/02/2025 1:31 PM EST05/02/2025 3:43 PM EST Narrative Authorizing ProviderResult TypeResult StatusHeather Lorenz CLINICAL SCIENTIST-CNP98 GENERAL LABFinal ResultPerforming OrganizationAddressCity/State/ZIP CodePhone Number [facility] [address] [place] [phone] * PARTIAL THROMBOPLASTIN TIME (05/02/2025 1:31 PM EST)ComponentValueRef Range Test MethodAnalysis TimePerformed AtPathologist VndghdtqpgROW6271 - 37 sec 05/02/2025 4:22 PM [facility] PATH[facility]Y LABORATORYSpecimen (Source)Anatomical Location / LateralityCollection Method / VolumeCollection TimeReceived Time BloodBLOOD SPECIMEN / UnknownVenipuncture / Lehypex5705/02/2025 1:31 PM EST 05/02/2025 3:43 PM EST Narrative Authorizing ProviderResult TypeResult StatusHeather Lorenz CLINICAL SCIENTIST-CNP98 GENERAL LABFinal ResultPerforming OrganizationAddressCity/State/ZIP CodePhone Number [facility] [address] [place] [address] * MR T-SPINE W/O (03/08/2025 9:25 PM EDT)Anatomical RegionLateralityModalityMR T- Spine, T-spineN/AMagnetic ResonanceSpecimen (Source)Anatomical Location / LateralityCollection Method / VolumeCollection TimeReceived Time03/09/2025 7:44 AM EDT Narrative 03/09/2025 7:46 AM EDT EXAMINATION: MR T-SPINE W/OPRO 03/08/2025 09:25 PM CLINICAL HISTORY: myelopathy ASSOCIATED DIAGNOSIS: Failed back surgical syndrome ORDERING PROVIDER: PJ BEASLEY TECHNOLOGISTS NOTE: ??Pt motion due to pain [...] Failed back surgical syndrome ORDERING PROVIDER: PJ BEASLEY TECHNOLOGISTS NOTE: Pt motion due to [...] Failed back surgical syndrome ORDERING PROVIDER: PJ BEASLEY TECHNOLOGISTS NOTE: ??Pt unable to hold still [...] Narrative 03/09/2025 7:43 AM EDT EXAMINATION: MR GoldsteinSPINE W/OPRO 03/08/2025 09:22 PM CLINICAL HISTORY: Low back pain, 6 weeks or more; S/P lumbar surgery; X-ray L- spine done ASSOCIATED DIAGNOSIS: Failed back surgical syndrome ORDERING PROVIDER: PJ BEASLEY TECHNOLOGISTS NOTE: ??Pt unable to hold still [...] Failed back surgical syndrome ORDERING PROVIDER: PJ BEASLEY TECHNOLOGISTS NOTE: Pt unable to hold [...] (Latest Code Status on File) Date ActivatedDate RkzlroeoowtXdklfujt62/12/2025 6:24 AM05/12/2025 5:16 PM QuestionAnswerCommentsDocumentation of decision process for this code status:* Discussed with patient or surrogate.?? This is the code status chosen by the patient/surrogate. Care Teams Team MemberRelationshipSpecialtyStart DateEnd Date Pj Beasley MD [address] [place] [phone] PhysicianOrthopaedic Surgery01/28/25 Heather Lorenz APRN-CNP [address] [place] [address] HQLJxsgoblavpjtpj57/6/25
[2025-05-30 20:56] VITALS: BP 123/89; PULSE 73; TEMP 36.7; O2SAT 100
[2025-05-30] MEDS: MORPHINE SULFATE 4 MG/ML VIAL IM (20:58)
[2025-05-30] MEDS: ONDANSETRON 4 MG RAPDIS TABLET SL (20:58)
--- NOTE | 2025-05-30 21:06 | PC.NURSE ---
i gave this patient verbal and written discharge orders and this patient voices yes to understanding these. at time of discharge this patient voices no concerns, needs and shows no signs of distress
== END 2025-05-30 21:05 | disposition home or self-care (01) ==
PROVIDERS: Emergency Provider Internal Medicine; PCP Family Medicine
DX: S16.1XXA Strain of muscle, fascia and tendon at neck level, initial encounter (principal); W01.0XXA Fall on same level from slipping, tripping and stumbling without subsequent striking against object, initial encounter; M54.50 Low back pain, unspecified; Z98.890 Other specified postprocedural states; F17.290 Nicotine dependence, other tobacco product, uncomplicated
CPT/HCPCS: 72125; 72131; 76376; 96372; 99284; J2270; Q0162